=== PATIENT | female | born 1950 | race Caucasian/White ===

== ENCOUNTER 2017-01-15 09:07 | Emergency (ER) | payer MEDICARE, OTHER ==
[2017-01-15] MEDS ORDERED: HYDROmorphone 1 MG/ML Syringe IM ONE (09:40)
--- NOTE | 2017-01-15 10:46 | EDM.PDOC ---
ED HPI LOWER BACK PAIN/INJURY - General Chief Complaint: Back Pain or Injury Stated Complaint: PATIENT FELL ON HER BOTTOM FROM THE ICE. Time Seen by Provider: 01/15/17 09:10 Source of Information: Reports: Patient History Limitations: Reports: No limitations - History of Present Illness INITIAL COMMENTS - FREE TEXT/NARRATIVE: History of present illness: [] Patient has restless leg syndrome and woke up at 4:30 this morning and went for a walk and leg irritation. She slipped on the ice and landed on her buttock. She is complaining of low back pain and has no other injuries. Patient uses high doses of oxycodone and took 30 mg prior to her walk this morning. Review of systems: As per history of present illness and below otherwise all systems reviewed and negative. Past medical history: As per history of present illness and as reviewed below otherwise noncontributory. Surgical history: As per history of present illness and as reviewed below otherwise noncontributory. Social history: No reported history of drug or alcohol abuse. Family history: As per history of present illness and as reviewed below otherwise noncontributory. Physical exam: General: Well developed, well nourished in NAD HEENT: Atraumatic, normocephalic, pupils reactive, negative for conjunctival pallor or scleral icterus, mucous membranes moist, throat clear, neck supple, nontender, trachea midline. Lungs: Clear to auscultation, breath sounds equal bilaterally, chest nontender. Heart: S1S2, regular, negative for clicks, rubs, or JVD. Abdomen: Soft, nondistended, nontender. Negative for masses or hepatosplenomegaly. Negative for costovertebral tenderness. Pelvis: Stable nontender. Genitourinary: Deferred. Rectal: Deferred. Extremities: Atraumatic, negative for cords or calf pain. Neurovascular unremarkable. Neuro: Awake, alert, oriented. Cranial nerves II through XII unremarkable. Cerebellum unremarkable. Motor and sensory unremarkable throughout. Exam nonfocal. Diagnostics: [] Lumbar spine x-ray negative for fracture. INR is 1.7 Therapeutics: [] Patient was given half a milligram of Dilaudid IM while in the ER Impression: [] Fall low back pain Plan: [] Followup PMD. Patient is on high doses of narcotics and is negotiating for a new prescription for oxycodone. I am uncomfortable with this she has pain contract and followed by pain management physician. Definitive disposition and diagnosis as appropriate pending reevaluation and review of above. - Related Data Allergies/ADRs: Allergies Allergy/AdvReac Type Severity Reaction Status Date / Time No Known Allergies Allergy Verified 01/15/17 09:57 Home Meds: Home Meds Carvedilol 6.25 mg PO BID 11/28/16 [History] Cyclobenzaprine [Flexeril] 10 mg PO BEDTIME 11/28/16 [History] Furosemide [Furosemide] 40 mg PO ASDIRECTED PRN 11/28/16 [History] Gabapentin [Neurontin] 400 mg PO DAILY 11/28/16 [History] Iron,Carbonyl/Vit C/Vit B12/Fa [Iron 100 Plus Tablet] 65 mg PO DAILY 11/28/16 [ History] Omeprazole Magnesium [Prilosec Otc] 40 mg PO DAILY 11/28/16 [History] Polyethylene Glycol 3350 [MiraLAX] 17 gm PO DAILY 11/28/16 [History] Warfarin [Coumadin] 6 mg PO DAILY 11/28/16 [History] Zolpidem Tartrate [Ambien] 10 mg PO ASDIRECTED 11/28/16 [History] amLODIPine Bes/Olmesartan Med [Ayush 5-40 mg Tablet] 6 mg PO BIDPC PRN 11/28/16 [ History] oxyCODONE [oxyCODONE] 30 mg PO 5XDAY 11/28/16 [History] traMADol [Ultram] 50 mg PO Q8H #8 tablet 01/15/17 [Rx] Past Medical History HEENT History: Reports: Other (see below) Other HEENT History: no teeth or dentures Cardiovascular History: Reports: Hypertension Gastrointestinal History: Reports: Other (see below) Other Gastrointestinal History: acid reflux 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: Reports: Musculoskeletal History: Reports: Arthritis, Back pain, chronic, Other (see below) Other Musculoskeletal History: scoliosis, bulging discs, carpal tunnel, restless leg Neurological History: Reports: TIA Psychiatric History: Reports: Anxiety, Depression Oncologic (Cancer) History: Reports: Breast Other Oncologic History: right breast ca - Past Surgical History Cardiovascular Surgical History: Reports: Valve replacement, Other (see below) Other Cardiovascular Surgeries/Procedures: aortic valve replacement, mitral valve regurg, open heart surgery GI Surgical History: Reports: Bariatric procedure, Cholecystectomy, Other (see below) Other GI Surgeries/Procedures: gastric bypass Female Surgical History: Reports: Tubal ligation Musculoskeletal Surgical History: Reports: Carpal tunnel, Other (see below) Other Musculoskeletal Surgeries/Procedures:: right arm -carpal tunnel Oncologic Surgical History: Reports: Biopsy of breast, Lumpectomy Social & Family History - Family History Family Medical History: Noncontributory - Tobacco Use Smoking Status *Q: Current Every Day Smoker Years of Tobacco use: 40 Packs/Tins Daily: 1 - Caffeine Use Caffeine Use: Reports: Coffee - Recreational Drug Use Recreational Drug Use: No ED ROS GENERAL - Review of Systems Review Of Systems: See Below (CH a) ED EXAM,LOWER BACK PAIN/INJURY - Physical Exam Exam: See Below (See history of present illness) Course - Vital Signs Last Recorded V/S: Last Vital Signs Temp 36.4 C 01/15/17 09:24 Pulse 96 01/15/17 09:24 Resp 20 01/15/17 09:24 BP 173/84 H 01/15/17 09:24 Pulse Ox 97 01/15/17 09:24 - Orders/Labs/Meds Orders: Active Orders 24 hr Category Date Time Status Lumbar Spine 2 or 3V [CR] Stat Exams 01/15/17 09:40 Taken INR,PT,PROTHROMBIN TIME [COAG] Stat Lab 01/15/17 10:31 Received Meds: Medications Discontinued Medications Generic Name Dose Route Start Last Admin Trade Name Freq PRN Reason Stop Dose Admin Hydromorphone HCl 0.5 mg 01/15/17 09:40 01/15/17 09:47 Dilaudid IM 01/15/17 09:41 0.5 mg ONETIME ONE Administration Departure - Departure Time of Disposition: 11:00 Disposition: Home, Self-Care 01 Condition: good Clinical Impression: Low back pain Qualifiers: Chronicity: acute Back pain laterality: midline Sciatica presence: without sciatica Qualified Code(s): M54.5 - Low back pain Prescriptions: traMADol [Ultram] 50 mg PO Q8H #8 tablet Forms: ED Department Discharge Additional Instructions: The following information is given to patients seen in the emergency department who are being discharged to home. This information is to outline your options for follow-up care. We provide all patients seen in our emergency department with a follow-up referral. The need for follow-up, as well as the timing and circumstances, are variable depending upon the specifics of your emergency department visit. If you don't have a primary care physician on staff, we will provide you with a referral. We always advise you to contact your personal physician following an emergency department visit to inform them of the circumstance of the visit and for follow-up with them and/or the need for any referrals to a consulting specialist. The emergency department will also refer you to a specialist when appropriate. This referral assures that you have the opportunity for follow-up care with a specialist. All of these measure are taken in an effort to provide you with optimal care, which includes your follow-up. Under all circumstances we always encourage you to contact your private physician who remains a resource for coordinating your care. When calling for follow-up care, please make the office aware that this follow-up is from your recent emergency room visit. If for any reason you are refused follow-up, please contact the [facility] Emergency Department at and asked to speak to the emergency department charge nurse. Tramadol for pain followup with regular PMD [facility] Primary Care [address] [place] [address] - My Orders Last 24 Hours: My Active Orders 01/15/17 09:40 Lumbar Spine 2 or 3V [CR] Stat 01/15/17 10:31 INR,PT,PROTHROMBIN TIME [COAG] Stat - Assessment/Plan Last 24 Hours: My Active Orders 01/15/17 09:40 Lumbar Spine 2 or 3V [CR] Stat 01/15/17 10:31 INR,PT,PROTHROMBIN TIME [COAG] Stat
[2017-01-15 11:10] VITALS: BP 164/78
--- NOTE | 2017-01-17 20:28 | CR ---
EXAM DATE: 01/15/17 PATIENT'S AGE: 66 Patient: REESE SHELDON Facility: [place], [place] Site . Site : 1950 Study: XRay Spine Lumbar [id number]/[id number] 10:14:02 AM Ordering Physician: Mina Timmons Final Report: Indication: Pain. Fell on ice. Technique: Three upright views of the lumbar spine. Comparison: None. Findings: No obvious fracture. Advanced degenerative changes and moderate levoscoliosis. Sacroiliac joints within normal limits. Impression: 1. Negative for acute abnormality. 2. Advanced degenerative changes. 3. Moderate scoliosis. Dictated by Ector Ferrell MD @ Jan 15 2017 10:28AM (Electronic Signature) Report Signed by Proxy and Original Signed Document filed in the Medical Record. MTDD
== END 2017-01-15 11:18 | disposition home or self-care (01) ==
LOC: MW.ED 09:07
DX: M54.5 Low back pain (principal); I10 Essential (primary) hypertension; M19.90 Unspecified osteoarthritis, unspecified site; Z86.73 Personal history of transient ischemic attack (TIA), and cerebral infarction without residual deficits; F41.9 Anxiety disorder, unspecified; F32.9 Major depressive disorder, single episode, unspecified; F17.210 Nicotine dependence, cigarettes, uncomplicated; Z79.01 Long term (current) use of anticoagulants; Z79.899 Other long term (current) drug therapy; Z90.49 Acquired absence of other specified parts of digestive tract; Z98.84 Bariatric surgery status; Z98.51 Tubal ligation status; W00.0XXA Fall on same level due to ice and snow, initial encounter
CPT/HCPCS: 36415; 72100; 85610; 96372; 99283; J1170; 99284

== ENCOUNTER 2017-07-17 19:14 | Inpatient (IN) | payer MEDICARE, OTHER ==
[2017-07-17] MEDS ORDERED: Sodium Chloride 0.9% 10 ML Syringe FLUSH PRN (19:23)
[2017-07-17] MEDS ORDERED: Sodium Chloride 0.9% 2.5 ML Syringe FLUSH PRN (19:23)
--- NOTE | 2017-07-17 19:47 | EDM.PDOC ---
ED HPI GENERAL MEDICAL PROBLEM - General Chief Complaint: Respiratory Problem Stated Complaint: TROUBLE BREATHING Time Seen by Provider: 07/17/17 19:26 - History of Present Illness INITIAL COMMENTS - FREE TEXT/NARRATIVE: HISTORY AND PHYSICAL: History of present illness: Patient 66-year-old female history coronary artery disease who is status post coronary bypass surgery from 2000 presents since her shortness of breath over last several days she denies chest pain nausea vomiting palpitations fever chills or other concern. Review of systems: As per history of present illness and below otherwise all systems reviewed and negative. Past medical history: As per history of present illness and as reviewed below otherwise noncontributory. Surgical history: As per history of present illness and as reviewed below otherwise noncontributory. Social history: No reported history of drug or alcohol abuse. Family history: As per history of present illness and as reviewed below otherwise noncontributory. Physical exam: HEENT: Atraumatic, normocephalic, pupils reactive, negative for conjunctival pallor or scleral icterus, mucous membranes moist, throat clear, neck supple, nontender, trachea midline. Lungs: Slightly diminished and coarse bilaterally, breath sounds equal bilaterally, chest nontender. Heart: S1S2, irregularly irregular, negative for clicks, rubs, or JVD. Abdomen: Soft, nondistended, nontender. Negative for masses or hepatosplenomegaly. Negative for costovertebral tenderness. Pelvis: Stable nontender. Genitourinary: Deferred. Rectal: Deferred. Extremities: Atraumatic, negative for cords or calf pain. Neurovascular unremarkable. Neuro: Awake, alert, oriented. Cranial nerves II through XII unremarkable. Cerebellum unremarkable. Motor and sensory unremarkable throughout. Exam nonfocal. Diagnostics: CBC CMP PT/INR troponin BNP chest x-ray EKG Therapeutics: IV O2 monitor Impression: #1 dyspnea #2 history of coronary artery disease #3 history of coronary bypass surgery 2000 Definitive disposition and diagnosis as appropriate pending reevaluation and review of above. Lower Back Pain Score (Numeric/FACES): 6 Bilateral Shoulder Pain Score (Numeric/FACES): 6 - Related Data Allergies Allergy/AdvReac Type Severity Reaction Status Date / Time No Known Allergies Allergy Verified 07/17/17 19:20 Home Meds: Home Meds Carvedilol 6.25 mg PO BID 11/28/16 [History] Cyclobenzaprine [Flexeril] 10 mg PO BEDTIME 11/28/16 [History] Furosemide [Furosemide] 40 mg PO ASDIRECTED PRN 11/28/16 [History] Gabapentin [Neurontin] 400 mg PO DAILY 11/28/16 [History] Iron,Carbonyl/Vit C/Vit B12/Fa [Iron 100 Plus Tablet] 65 mg PO DAILY 11/28/16 [ History] Omeprazole Magnesium [Prilosec Otc] 40 mg PO DAILY 11/28/16 [History] Polyethylene Glycol 3350 [MiraLAX] 17 gm PO DAILY 11/28/16 [History] Warfarin [Coumadin] 6 mg PO DAILY 11/28/16 [History] Zolpidem Tartrate [Ambien] 10 mg PO ASDIRECTED 11/28/16 [History] amLODIPine Bes/Olmesartan Med [Ayush 5-40 mg Tablet] 6 mg PO BIDPC PRN 11/28/16 [ History] traMADol [Ultram] 50 mg PO Q8H #8 tablet 01/15/17 [Rx] Methadone 20 mg PO QAM 07/17/17 [History] DULoxetine HCl [Duloxetine HCl] 60 mg PO DAILY 07/18/17 [History] Methadone 10 mg PO BEDTIME 07/18/17 [History] Past Medical History HEENT History: Reports: Other (See Below) Other HEENT History: no teeth or dentures Cardiovascular History: Reports: Hypertension Gastrointestinal History: Reports: Other (See Below) Other Gastrointestinal History: acid reflux [employer] History: Reports: Musculoskeletal History: Reports: Arthritis, Back Pain, Chronic, Other (See Below) Other Musculoskeletal History: scoliosis, bulging discs, carpal tunnel, restless leg Neurological History: Reports: TIA Psychiatric History: Reports: Anxiety, Depression Oncologic (Cancer) History: Reports: Breast Other Oncologic History: right breast ca - Past Surgical History Cardiovascular Surgical History: Reports: Valve Replacement, Other (See Below) GI Surgical History: Reports: Bariatric Procedure, Cholecystectomy, Other (See Below) Female Surgical History: Reports: Tubal Ligation Musculoskeletal Surgical History: Reports: Carpal Tunnel, Other (See Below) Oncologic Surgical History: Reports: Biopsy of Breast, Lumpectomy Social & Family History - Family History Family Medical History: Noncontributory - Tobacco Use Smoking Status *Q: Current Every Day Smoker Years of Tobacco use: 50 Packs/Tins Daily: 0.5 - Caffeine Use Caffeine Use: Reports: None - Recreational Drug Use Recreational Drug Use: No ED ROS GENERAL - Review of Systems Review Of Systems: ROS reveals no pertinent complaints other than HPI. ED EXAM, GENERAL - Physical Exam Exam: See Below (See dictation) Course - Vital Signs Last Recorded V/S: Last Vital Signs Temp 36.1 C 07/19/17 04:00 Pulse 83 07/19/17 04:00 Resp 16 07/19/17 04:00 BP 103/52 L 07/19/17 04:00 Pulse Ox 97 07/19/17 04:00 - Orders/Labs/Meds Orders: Medication Orders Carvedilol (Coreg) 6.25 mg PO BID [facility] Last Admin: 07/18/17 20:56 Dose: 6.25 mg Admin: 07/18/17 08:15 Dose: 6.25 mg Ciprofloxacin (Ciprofloxacin Hcl) 500 mg PO BID [facility] Last Admin: 07/18/17 20:54 Dose: 500 mg Admin: 07/18/17 08:15 Dose: 500 mg Cyclobenzaprine HCl (Flexeril) 10 mg PO BEDTIME [facility] Last Admin: 07/18/17 20:54 Dose: 10 mg Diltiazem HCl (Diltiazem) 20 mg IVPUSH Q6H PRN PRN Reason: Tachycardia Last Admin: 07/18/17 10:33 Dose: 20 mg Admin: 07/18/17 02:54 Dose: 20 mg Duloxetine HCl (Cymbalta) 60 mg PO DAILY [facility] Last Admin: 07/18/17 15:01 Dose: 60 mg Ferrous Sulfate (Ferrous Sulfate) 325 mg PO DAILY@1200 [facility] Last Admin: 07/18/17 11:03 Dose: 325 mg Gabapentin (Neurontin) 400 mg PO DAILY [facility] Last Admin: 07/18/17 08:12 Dose: 400 mg Methadone HCl (Methadone) 10 mg PO BEDTIME [facility] Last Admin: 07/18/17 20:53 Dose: 10 mg Methadone HCl (Methadone) 20 mg PO DAILY [facility] Omeprazole (Omeprazole) 40 mg PO ACBREAKFAST [facility] Last Admin: 07/18/17 06:37 Dose: 40 mg Amlodipine Bes/Olmesartan Med [Ayush 5-40 Mg Tablet] 6 Mg 1 each PO BIDPC PRN PRN Reason: Hypertension Polyethylene Glycol (Miralax) 17 gm PO DAILY [facility] Last Admin: 07/18/17 08:12 Dose: 17 gm Sodium Chloride (Saline Flush) 10 ml FLUSH ASDIRECTED PRN PRN Reason: Keep Vein Open Last Admin: 07/17/17 19:42 Dose: 10 ml Sodium Chloride (Saline Flush) 2.5 ml FLUSH ASDIRECTED PRN PRN Reason: Keep Vein Open Last Admin: 07/17/17 19:40 Dose: 2.5 ml Temazepam (Restoril) 15 mg PO BEDTIME PRN PRN Reason: Insomnia Last Admin: 07/18/17 21:59 Dose: 15 mg Admin: 07/17/17 23:05 Dose: 15 mg Tramadol HCl (Ultram) 50 mg PO Q8H [facility] Last Admin: 07/18/17 21:59 Dose: 50 mg Admin: 07/18/17 14:49 Dose: 50 mg Admin: 07/18/17 06:36 Dose: 50 mg Admin: 07/17/17 22:48 Dose: Not Given Zaleplon (Sonata) 10 mg PO ASDIRECTED [facility] Labs: Laboratory Tests 07/17/17 07/17/17 07/17/17 Range/Units 19:35 19:35 19:35 WBC 10.80 (4.0-11.0) K/uL RBC 4.57 (4.30-5.90) M/uL Hgb 13.2 (12.0-16.0) g/dL Hct 41.0 (36.0-46.0) % MCV 89.7 (80.0-98.0) fL MCH 28.9 (27.0-32.0) pg MCHC 32.2 (31.0-37.0) g/dL RDW Std Deviation 50.2 (28.0-62.0) fl RDW Coeff of Shaun 15 (11.0-15.0) % Plt Count 207 (150-400) K/uL MPV 9.50 (7.40-12.00) fL Neut % (Auto) 73.3 (48.0-80.0) % Lymph % (Auto) 17.1 (16.0-40.0) % Stearns % (Auto) 7.3 (0.0-15.0) % Eos % (Auto) 2.0 (0.0-7.0) % Baso % (Auto) 0.3 (0.0-1.5) % Neut # (Auto) 7.9 H (1.4-5.7) K/uL Lymph # (Auto) 1.9 (0.6-2.4) K/uL Stearns # (Auto) 0.8 (0.0-0.8) K/uL Eos # (Auto) 0.2 (0.0-0.7) K/uL Baso # (Auto) 0.0 (0.0-0.1) K/uL Nucleated RBC % 0.0 /100WBC Nucleated RBCs # 0 K/uL INR 3.18 H (0.86-1.11) Lactate 1.8 (0.20-2.00) mmol/L Sodium (136-146) mmol/L Potassium (3.5-5.1) mmol/L Chloride (98-110) mmol/L Carbon Dioxide (21-31) mmol/L BUN (6.0-23.0) mg/dL Creatinine (0.6-1.5) mg/dL Est Cr Clr Drug Dosing mL/min Estimated GFR (MDRD) ml/min Glucose (60-110) mg/dL Calcium (8.8-10.8) mg/dL Total Bilirubin (0.1-1.5) mg/dL AST (5-40) IU/L ALT (8-54) IU/L Alkaline Phosphatase (40-150) Troponin I (0.0-0.29) NG/ML B-Natriuretic Peptide (<100) PG/ML Total Protein (6.0-8.0) g/dL Albumin (3.4-4.8) g/dL Globulin (2.0-3.5) g/dL Albumin/Globulin Ratio (1.3-2.8) Urine Color Urine Appearance Urine pH (5.0-8.0) Ur Specific [place] (1.001-1.035) Urine Protein (NEGATIVE) mg/dL Urine Glucose (UA) (NEGATIVE) mg/dL Urine Ketones (NEGATIVE) mg/dL Urine Occult Blood (NEGATIVE) Urine Nitrite (NEGATIVE) Urine Bilirubin (NEGATIVE) Urine Urobilinogen (<2.0) EU/dL Ur Leukocyte Esterase (NEGATIVE) Urine RBC (0-2/HPF) Urine WBC (0-5/HPF) Ur Epithelial Cells (NONE-FEW) Calcium Oxalate Crystal (NEGATIVE) Urine Bacteria (NEGATIVE) Urine Opiates Screen (NEGATIVE) Ur Oxycodone Screen (NEGATIVE) Urine Methadone Screen (NEGATIVE) Ur Barbiturates Screen (NEGATIVE) Ur Phencyclidine Scrn (NEGATIVE) Ur Amphetamine Screen (NEGATIVE) U Methamphetamines Scrn (NEGATIVE) U Benzodiazepines Scrn (NEGATIVE) U Cocaine Metab Screen (NEGATIVE) U Marijuana (THC) Screen (NEGATIVE) 07/17/17 07/17/17 07/17/17 Range/Units 19:35 19:35 19:35 WBC (4.0-11.0) K/uL RBC (4.30-5.90) M/uL Hgb (12.0-16.0) g/dL Hct (36.0-46.0) % MCV (80.0-98.0) fL MCH (27.0-32.0) pg MCHC (31.0-37.0) g/dL RDW Std Deviation (28.0-62.0) fl RDW Coeff of Shaun (11.0-15.0) % Plt Count (150-400) K/uL MPV (7.40-12.00) fL Neut % (Auto) (48.0-80.0) % Lymph % (Auto) (16.0-40.0) % Stearns % (Auto) (0.0-15.0) % Eos % (Auto) (0.0-7.0) % Baso % (Auto) (0.0-1.5) % Neut # (Auto) (1.4-5.7) K/uL Lymph # (Auto) (0.6-2.4) K/uL Stearns # (Auto) (0.0-0.8) K/uL Eos # (Auto) (0.0-0.7) K/uL Baso # (Auto) (0.0-0.1) K/uL Nucleated RBC % /100WBC Nucleated RBCs # K/uL INR (0.86-1.11) Lactate (0.20-2.00) mmol/L Sodium 138 (136-146) mmol/L Potassium 4.3 (3.5-5.1) mmol/L Chloride 104 (98-110) mmol/L Carbon Dioxide 26 (21-31) mmol/L BUN 12 (6.0-23.0) mg/dL Creatinine 0.7 (0.6-1.5) mg/dL Est Cr Clr Drug Dosing 56.78 mL/min Estimated GFR (MDRD) > 60.0 ml/min Glucose 119 H (60-110) mg/dL Calcium 8.9 (8.8-10.8) mg/dL Total Bilirubin 0.5 (0.1-1.5) mg/dL AST 20 (5-40) IU/L ALT 14 (8-54) IU/L Alkaline Phosphatase 93 (40-150) Troponin I < 0.10 (0.0-0.29) NG/ML B-Natriuretic Peptide 650 H (<100) PG/ML Total Protein 6.8 (6.0-8.0) g/dL Albumin 3.8 (3.4-4.8) g/dL Globulin 3.0 (2.0-3.5) g/dL Albumin/Globulin Ratio 1.3 (1.3-2.8) Urine Color Urine Appearance Urine pH (5.0-8.0) Ur Specific [place] (1.001-1.035) Urine Protein (NEGATIVE) mg/dL Urine Glucose (UA) (NEGATIVE) mg/dL Urine Ketones (NEGATIVE) mg/dL Urine Occult Blood (NEGATIVE) Urine Nitrite (NEGATIVE) Urine Bilirubin (NEGATIVE) Urine Urobilinogen (<2.0) EU/dL Ur Leukocyte Esterase (NEGATIVE) Urine RBC (0-2/HPF) Urine WBC (0-5/HPF) Ur Epithelial Cells (NONE-FEW) Calcium Oxalate Crystal (NEGATIVE) Urine Bacteria (NEGATIVE) Urine Opiates Screen (NEGATIVE) Ur Oxycodone Screen (NEGATIVE) Urine Methadone Screen (NEGATIVE) Ur Barbiturates Screen (NEGATIVE) Ur Phencyclidine Scrn (NEGATIVE) Ur Amphetamine Screen (NEGATIVE) U Methamphetamines Scrn (NEGATIVE) U Benzodiazepines Scrn (NEGATIVE) U Cocaine Metab Screen (NEGATIVE) U Marijuana (THC) Screen (NEGATIVE) 07/17/17 07/17/17 Range/Units 19:35 19:35 WBC (4.0-11.0) K/uL RBC (4.30-5.90) M/uL Hgb (12.0-16.0) g/dL Hct (36.0-46.0) % MCV (80.0-98.0) fL MCH (27.0-32.0) pg MCHC (31.0-37.0) g/dL RDW Std Deviation (28.0-62.0) fl RDW Coeff of Shaun (11.0-15.0) % Plt Count (150-400) K/uL MPV (7.40-12.00) fL Neut % (Auto) (48.0-80.0) % Lymph % (Auto) (16.0-40.0) % Stearns % (Auto) (0.0-15.0) % Eos % (Auto) (0.0-7.0) % Baso % (Auto) (0.0-1.5) % Neut # (Auto) (1.4-5.7) K/uL Lymph # (Auto) (0.6-2.4) K/uL Stearns # (Auto) (0.0-0.8) K/uL Eos # (Auto) (0.0-0.7) K/uL Baso # (Auto) (0.0-0.1) K/uL Nucleated RBC % /100WBC Nucleated RBCs # K/uL INR (0.86-1.11) Lactate (0.20-2.00) mmol/L Sodium (136-146) mmol/L Potassium (3.5-5.1) mmol/L Chloride (98-110) mmol/L Carbon Dioxide (21-31) mmol/L BUN (6.0-23.0) mg/dL Creatinine (0.6-1.5) mg/dL Est Cr Clr Drug Dosing mL/min Estimated GFR (MDRD) ml/min Glucose (60-110) mg/dL Calcium (8.8-10.8) mg/dL Total Bilirubin (0.1-1.5) mg/dL AST (5-40) IU/L ALT (8-54) IU/L Alkaline Phosphatase (40-150) Troponin I (0.0-0.29) NG/ML B-Natriuretic Peptide (<100) PG/ML Total Protein (6.0-8.0) g/dL Albumin (3.4-4.8) g/dL Globulin (2.0-3.5) g/dL Albumin/Globulin Ratio (1.3-2.8) Urine Color YELLOW Urine Appearance CLOUDY Urine pH 6.0 (5.0-8.0) Ur Specific [place] 1.025 (1.001-1.035) Urine Protein 30 (NEGATIVE) mg/dL Urine Glucose (UA) NEGATIVE (NEGATIVE) mg/dL Urine Ketones NEGATIVE (NEGATIVE) mg/dL Urine Occult Blood LARGE H (NEGATIVE) Urine Nitrite NEGATIVE (NEGATIVE) Urine Bilirubin NEGATIVE (NEGATIVE) Urine Urobilinogen 1.0 (<2.0) EU/dL Ur Leukocyte Esterase SMALL (NEGATIVE) Urine RBC 10-15 (0-2/HPF) Urine WBC 6-10 (0-5/HPF) Ur Epithelial Cells FEW (NONE-FEW) Calcium Oxalate Crystal MODERATE (NEGATIVE) Urine Bacteria 2+ H (NEGATIVE) Urine Opiates Screen NEGATIVE (NEGATIVE) Ur Oxycodone Screen NEGATIVE (NEGATIVE) Urine Methadone Screen POSITIVE (NEGATIVE) Ur Barbiturates Screen NEGATIVE (NEGATIVE) Ur Phencyclidine Scrn NEGATIVE (NEGATIVE) Ur Amphetamine Screen NEGATIVE (NEGATIVE) U Methamphetamines Scrn NEGATIVE (NEGATIVE) U Benzodiazepines Scrn NEGATIVE (NEGATIVE) U Cocaine Metab Screen NEGATIVE (NEGATIVE) U Marijuana (THC) Screen NEGATIVE (NEGATIVE) Meds: Medications Generic Name Dose Route Start Last Admin Trade Name Freq PRN Reason Stop Dose Admin Carvedilol 6.25 mg 07/18/17 09:00 07/18/17 20:56 Coreg PO 6.25 mg BID [facility] Administration Ciprofloxacin 500 mg 07/18/17 09:00 07/18/17 20:54 Ciprofloxacin Hcl PO 500 mg BID [facility] Administration Cyclobenzaprine HCl 10 mg 07/18/17 21:00 07/18/17 20:54 Flexeril PO 10 mg BEDTIME [facility] Administration Diltiazem HCl 20 mg 07/18/17 02:06 07/18/17 10:33 Diltiazem IVPUSH 20 mg Q6H PRN Administration Tachycardia Duloxetine HCl 60 mg 07/18/17 15:00 07/18/17 15:01 Cymbalta PO 60 mg DAILY [facility] Administration Ferrous Sulfate 325 mg 07/18/17 12:00 07/18/17 11:03 Ferrous Sulfate PO 325 mg DAILY@1200 [facility] Administration Gabapentin 400 mg 07/18/17 09:00 07/18/17 08:12 Neurontin PO 400 mg DAILY [facility] Administration Methadone HCl 10 mg 07/18/17 21:00 07/18/17 20:53 Methadone PO 10 mg BEDTIME [facility] Administration Methadone HCl 20 mg 07/19/17 09:00 Methadone PO DAILY [facility] Omeprazole 40 mg 07/18/17 07:30 07/18/17 06:37 Omeprazole PO 40 mg ACBREAKFAST [facility] Administration Amlodipine Bes/ 1 each 07/17/17 22:37 Olmesartan Med [Ayush PO 5-40 Mg Tablet] 6 BIDPC PRN Mg Hypertension Polyethylene Glycol 17 gm 07/18/17 09:00 07/18/17 08:12 Miralax PO 17 gm DAILY [facility] Administration Sodium Chloride 10 ml 07/17/17 19:23 07/17/17 19:42 Saline Flush FLUSH 10 ml ASDIRECTED PRN Administration Keep Vein Open Sodium Chloride 2.5 ml 07/17/17 19:23 07/17/17 19:40 Saline Flush FLUSH 2.5 ml ASDIRECTED PRN Administration Keep Vein Open Temazepam 15 mg 07/17/17 22:46 07/18/17 21:59 Restoril PO 15 mg BEDTIME PRN Administration Insomnia Tramadol HCl 50 mg 07/17/17 22:45 07/18/17 21:59 Ultram PO 50 mg Q8H [facility] Administration Zaleplon 10 mg 07/17/17 22:48 Sonata PO ASDIRECTED [facility] Discontinued Medications Generic Name Dose Route Start Last Admin Trade Name Freq PRN Reason Stop Dose Admin Diltiazem HCl 20 mg 07/17/17 19:51 07/17/17 19:57 Diltiazem IVPUSH 07/17/17 19:52 20 mg ONETIME ONE Administration Ferrous Sulfate 325 mg 07/18/17 10:08 Ferrous Sulfate PO DAILY [facility] Furosemide 20 mg 07/17/17 20:49 07/17/17 21:00 Lasix IVPUSH 07/17/17 20:50 20 mg NOW ONE Administration Furosemide 40 mg 07/17/17 22:37 Lasix PO ASDIRECTED PRN Edema Furosemide 40 mg 07/18/17 15:47 07/18/17 16:30 Lasix IVPUSH 07/18/17 15:48 40 mg NOW ONE Administration Methadone HCl 10 mg 07/17/17 22:45 07/18/17 08:13 Methadone PO 10 mg BID [facility] Administration Methadone HCl 10 mg 07/18/17 10:15 07/18/17 10:21 Methadone PO 07/18/17 10:16 10 mg ONETIME ONE Administration Non-Formulary Medication 65 mg 07/18/17 09:00 07/18/17 14:48 Iron,Carbonyl/Vit C/Vit B12/Fa [Iron 100 Plus Tablet] PO Not Given DAILY [facility] Departure - Departure Time of Disposition: 06:15 Disposition: Admitted As Inpatient 66 Condition: Good Clinical Impression: Dyspnea Qualifiers: Dyspnea type: dyspnea on exertion Qualified Code(s): R06.09 - Other forms of dyspnea - Discharge Information
[2017-07-17] MEDS ORDERED: Diltiazem 25 MG/5 ML SDV IVPUSH ONE (19:51)
[2017-07-17 20:12] LABS: CHLORIDE,CL 104 mmol/L (98-110); SODIUM,NA 138 mmol/L (136-146)
[2017-07-17] MEDS ORDERED: Furosemide 40 MG/4 ML VIAL IVPUSH ONE (20:49)
[2017-07-17] MEDS ORDERED: [UNRECOGNIZED DRUG - OTHER] PO PRN (22:37)
[2017-07-17] MEDS ORDERED: Furosemide 40 MG Tab PO PRN (22:37)
[2017-07-17] MEDS ORDERED: OLMESARTAN PO PRN (22:37)
[2017-07-17] MEDS: traMADol 50 MG Tab PO SCH (22:48)
[2017-07-17] MEDS: Temazepam 15 MG Cap PO PRN (23:05)
[2017-07-17] MEDS: Methadone 10 MG Tab PO SCH (23:05)
[2017-07-18] MEDS: Diltiazem 25 MG/5 ML SDV IVPUSH PRN ×2 (02:54→10:33)
[2017-07-18 06:32] LABS: CHLORIDE,CL 102 mmol/L (98-110); SODIUM,NA 141 mmol/L (136-146)
[2017-07-18] MEDS: traMADol 50 MG Tab PO SCH ×3 (06:36→21:59)
[2017-07-18] MEDS: Omeprazole 20 MG Cap.CR PO SCH (06:37)
[2017-07-18] MEDS: Gabapentin 100 MG Cap PO SCH (08:12)
[2017-07-18] MEDS: Polyethylene Glycol 3350 Powder 17 GM Packet PO SCH (08:12)
[2017-07-18] MEDS: Methadone 10 MG Tab PO SCH ×2 (08:13→20:53)
[2017-07-18] MEDS: Carvedilol 6.25 MG Tab PO SCH ×2 (08:15→20:56)
[2017-07-18] MEDS: Ciprofloxacin 500 MG Tab PO SCH ×2 (08:15→20:54)
[2017-07-18] MEDS ORDERED: Ferrous Sulfate 325 MG Tab PO SCH (10:08)
[2017-07-18] MEDS ORDERED: Methadone 10 MG Tab PO ONE (10:15)
--- NOTE | 2017-07-18 10:18 | PCM.HP ---
H&P History of Present Illness - General Date of Service: 07/18/17 Admit Problem/Dx: Admission Diagnosis/Problem Admission Diagnosis/Problem Atrial fibrillation with rapid ventricular response Source of Information: Patient History Limitations: Reports: No Limitations - History of Present Illness Initial Comments - Free Text/Narative: The patient is a 66-year-old lady who is presented to the emergency department yesterday evening with a complaint of shortness of breath. The patient says that she has been short of breath for the past several days and is gotten worse where she has difficulty in walking up shelter flight of stairs. The patient has a history of coronary artery bypass in 2010 and she also has a history of aortic valve replacement with mechanical valve. The patient is currently anticoagulated and in the emergency department she was known to be in atrial fibrillation with rapid ventricular response rate. Patient says that she is not having any pain. She's denied any dizziness or lightheadedness. The patient has been compliant with her medications. The patient also has been taking chronic pain medications in particular methadone for her back pain and she used to use oxycodone in large doses but is been tapering down and is completely off oxycodone but has been on methadone 10 mg by mouth twice a day. Patient does have a history of breast cancer and she is not to have vital signs or blood draws on her right side. The patient has been in her usual state of health up at the present time. She was not aware that she was having difficulty with atrial fibrillation. Patient also had been given Cardizem in the emergency department and her rate was controlled nicely. Patient also does take carvedilol. Onset of Symptoms: Reports: Gradual Duration of Symptoms: Reports: Day(s): Location: Reports: Chest Severity: Moderate Improves with: Reports: Rest Worsens with: Reports: Breathing, Movement Associated Symptoms: Reports: Diaphoresis Lower Back Pain Score (Numeric/FACES): 6 Bilateral Shoulder Pain Score (Numeric/FACES): 6 - Related Data Allergies/Adverse Reactions: Allergies Allergy/AdvReac Type Severity Reaction Status Date / Time No Known Allergies Allergy Verified 07/17/17 19:20 Home Medications: Home Meds Carvedilol 6.25 mg PO BID 11/28/16 [History] Cyclobenzaprine [Flexeril] 10 mg PO BEDTIME 11/28/16 [History] Furosemide [Furosemide] 40 mg PO ASDIRECTED PRN 11/28/16 [History] Gabapentin [Neurontin] 400 mg PO DAILY 11/28/16 [History] Iron,Carbonyl/Vit C/Vit B12/Fa [Iron 100 Plus Tablet] 65 mg PO DAILY 11/28/16 [ History] Omeprazole Magnesium [Prilosec Otc] 40 mg PO DAILY 11/28/16 [History] Polyethylene Glycol 3350 [MiraLAX] 17 gm PO DAILY 11/28/16 [History] Warfarin [Coumadin] 6 mg PO DAILY 11/28/16 [History] Zolpidem Tartrate [Ambien] 10 mg PO ASDIRECTED 11/28/16 [History] amLODIPine Bes/Olmesartan Med [Ayush 5-40 mg Tablet] 6 mg PO BIDPC PRN 11/28/16 [ History] traMADol [Ultram] 50 mg PO Q8H #8 tablet 01/15/17 [Rx] Methadone 20 mg PO QAM 07/17/17 [History] DULoxetine HCl [Duloxetine HCl] 60 mg PO DAILY 07/18/17 [History] Methadone 10 mg PO BEDTIME 07/18/17 [History] Past Medical History HEENT History: Reports: Other (See Below) Other HEENT History: no teeth or dentures Cardiovascular History: Reports: Bypass, Heart Failure, Heart Valve Replacement , Hypertension Respiratory History: Reports: COPD Gastrointestinal History: Reports: Other (See Below) Other Gastrointestinal History: acid reflux Genitourinary History: Reports: None [employer] History: Reports: Musculoskeletal History: Reports: Arthritis, Back Pain, Chronic, Other (See Below) Other Musculoskeletal History: scoliosis, bulging discs, carpal tunnel, restless leg Neurological History: Reports: TIA Psychiatric History: Reports: Anxiety, Depression Endocrine/Metabolic History: Reports: None Hematologic History: Reports: None Immunologic History: Reports: None Oncologic (Cancer) History: Reports: Breast Other Oncologic History: right breast ca Dermatologic History: Reports: None - Past Surgical History Head Surgeries/Procedures: Reports: None Cardiovascular Surgical History: Reports: Valve Replacement, Other (See Below) Respiratory Surgical History: Reports: None GI Surgical History: Reports: Bariatric Procedure, Cholecystectomy, Other (See Below) Other GI Surgeries/Procedures: gastric bypass Female Surgical History: Reports: Tubal Ligation, Other (See Below) Other Female Surgeries/Procedures: right breast lumpectomy Neurological Surgical History: Reports: None Musculoskeletal Surgical History: Reports: Carpal Tunnel, Other (See Below) Oncologic Surgical History: Reports: Biopsy of Breast, Lumpectomy Social & Family History - Family History Family Medical History: Noncontributory - Tobacco Use Smoking Status *Q: Current Every Day Smoker Years of Tobacco use: 50 Packs/Tins Daily: 0.5 Second Hand Smoke Exposure: Yes - Caffeine Use Caffeine Use: Reports: Coffee Caffeine Use Comment: 3-4 cups a day - Recreational Drug Use Recreational Drug Use: No H&P Review of Systems - Review of Systems: Review Of Systems: See Below General: Reports: Weakness, Fatigue HEENT: Reports: No Symptoms Pulmonary: Reports: Shortness of Breath Cardiovascular: Reports: No Symptoms Gastrointestinal: Reports: No Symptoms Genitourinary: Reports: No Symptoms Musculoskeletal: Reports: No Symptoms Skin: Reports: No Symptoms Psychiatric: Reports: No Symptoms Neurological: Reports: No Symptoms Hematologic/Lymphatic: Reports: No Symptoms Immunologic: Reports: No Symptoms Exam - Exam Exam: See Below - Vital Signs Vital Signs: Last Vital Signs Temp 35.9 C 07/18/17 08:00 Pulse 110 H 07/18/17 08:15 Resp 20 07/18/17 08:00 BP 119/68 07/18/17 08:15 Pulse Ox 95 07/18/17 08:00 Weight: 68.4 kg - Exam Quality Assessment: Supplemental Oxygen General: Alert, Oriented, Mild Distress HEENT: Conjunctiva Clear, Mucosa Moist & [place], Nares Patent Neck: Supple, Trachea Midline Lungs: Clear to Auscultation, Normal Respiratory Effort Cardiovascular: Irregular Rhythm, Tachycardia GI/Abdominal Exam: Normal Bowel Sounds, Soft, No Distention Back Exam: Decreased Range of Motion Extremities: No Pedal Edema Skin: Warm, Dry, Intact Neuro Extensive - Mental Status: Alert, Oriented x3 Psychiatric: Alert, Normal Affect - Patient Data Lab Results Last 24 hrs: Laboratory Results - last 24 hr 07/18/17 07/18/17 07/18/17 Range/Units 05:13 05:13 05:13 WBC 8.23 (4.0-11.0) K/uL RBC 4.54 (4.30-5.90) M/uL Hgb 13.0 (12.0-16.0) g/dL Hct 40.4 (36.0-46.0) % MCV 89.0 (80.0-98.0) fL MCH 28.6 (27.0-32.0) pg MCHC 32.2 (31.0-37.0) g/dL RDW Std Deviation 49.1 (28.0-62.0) fl RDW Coeff of Shaun 15 (11.0-15.0) % Plt Count 194 (150-400) K/uL MPV 10.00 (7.40-12.00) fL Neut % (Auto) 60.0 (48.0-80.0) % Lymph % (Auto) 24.9 (16.0-40.0) % Gaines % (Auto) 12.9 (0.0-15.0) % Eos % (Auto) 1.8 (0.0-7.0) % Baso % (Auto) 0.4 (0.0-1.5) % Neut # (Auto) 4.9 (1.4-5.7) K/uL Lymph # (Auto) 2.1 (0.6-2.4) K/uL Gaines # (Auto) 1.1 H (0.0-0.8) K/uL Eos # (Auto) 0.2 (0.0-0.7) K/uL Baso # (Auto) 0.0 (0.0-0.1) K/uL Nucleated RBC % 0.0 /100WBC Nucleated RBCs # 0 K/uL INR 3.78 H (0.86-1.11) Sodium 141 (136-146) mmol/L Potassium 4.1 (3.5-5.1) mmol/L Chloride 102 (98-110) mmol/L Carbon Dioxide 29 (21-31) mmol/L BUN 12 (6.0-23.0) mg/dL Creatinine 0.7 (0.6-1.5) mg/dL Est Cr Clr Drug Dosing 56.78 mL/min Estimated GFR (MDRD) > 60.0 ml/min Glucose 90 (60-110) mg/dL Calcium 9.1 (8.8-10.8) mg/dL Total Bilirubin 0.7 (0.1-1.5) mg/dL AST 18 (5-40) IU/L ALT 13 (8-54) IU/L Alkaline Phosphatase 94 (40-150) Total Protein 6.4 (6.0-8.0) g/dL Albumin 3.8 (3.4-4.8) g/dL Globulin 2.6 (2.0-3.5) g/dL Albumin/Globulin Ratio 1.5 (1.3-2.8) Result Diagrams: 07/18/17 05:13 07/18/17 05:13 EKG INTERPRETATION Rhythm: A-Fib [place]: Normal P-Wave: Absent QRS: Normal ST-T: Normal QT: Normal *Q Meaningful Use (ADM) - VTE *Q VTE Criteria *Q: - Stroke *Q Stroke Criteria *Q: - AMI *Q AMI Criteria *Q: - Problem List (1) New onset a-fib SNOMED Code(s): 86723507 ICD Code: I48.91 - UNSPECIFIED ATRIAL FIBRILLATION Status: Chronic Priority: High Current Visit: Yes Problem Details: Cardiology consulted (2) Mechanical heart valve present SNOMED Code(s): 51805469581863, 33756693, 136178440, 490342208, [id number] ICD Code: Z95.2 - PRESENCE OF PROSTHETIC HEART VALVE Status: Chronic Priority: High Current Visit: Yes (3) Anticoagulated on Coumadin SNOMED Code(s): 19767789 ICD Code: Z51.81 - ENCOUNTER FOR THERAPEUTIC DRUG LEVEL MONITORING; Z79.01 - FPC (CURRENT) USE OF ANTICOAGULANTS Status: Chronic Priority: Medium Current Visit: Yes (4) Dyspnea SNOMED Code(s): 233616598 ICD Code: R06.00 - DYSPNEA, UNSPECIFIED Status: Acute Priority: High Current Visit: Yes Qualifiers: Dyspnea type: dyspnea on exertion Qualified Code(s): R06.09 - Other forms of dyspnea Problem List Initiated/Reviewed/Updated: Yes Orders Last 24hrs: Active Orders 24 hr Category Date Time Status Communication Order [RC] DAILY Care 07/17/17 22:09 Active Telemetry Monitoring [Cardiac Monitoring] [RC] . Care 07/17/17 21:10 Active DIRECTED Heart Healthy Diet [DIET] Diet 07/18/17 Breakfast Active Carvedilol [Coreg] Med 07/18/17 09:00 Active 6.25 mg PO BID Ciprofloxacin [Ciprofloxacin HCl] Med 07/18/17 09:00 Active 500 mg PO BID Cyclobenzaprine [Flexeril] Med 07/18/17 21:00 Active 10 mg PO BEDTIME Diltiazem Med 07/18/17 02:06 Active 20 mg IVPUSH Q6H PRN Ferrous Sulfate Med 07/18/17 12:00 Active 325 mg PO DAILY@1200 Gabapentin [Neurontin] Med 07/18/17 09:00 Active 400 mg PO DAILY Methadone Med 07/18/17 21:00 Active 10 mg PO BEDTIME Methadone Med 07/19/17 09:00 Active 20 mg PO DAILY Omeprazole Med 07/18/17 07:30 Active 40 mg PO ACBREAKFAST Patient's Own Medication [Ptom] Med 07/17/17 22:37 Active 1 each PO BIDPC PRN Polyethylene Glycol 3350 [MiraLAX] Med 07/18/17 09:00 Active 17 gm PO DAILY Temazepam [Restoril] Med 07/17/17 22:46 Active 15 mg PO BEDTIME PRN Zaleplon [Sonata] Med 07/17/17 22:48 Active 10 mg PO ASDIRECTED traMADol [Ultram] Med 07/17/17 22:45 Active 50 mg PO Q8H Medication Orders Carvedilol (Coreg) 6.25 mg PO BID [facility] Last Admin: 07/18/17 08:15 Dose: 6.25 mg Ciprofloxacin (Ciprofloxacin Hcl) 500 mg PO BID [facility] Last Admin: 07/18/17 08:15 Dose: 500 mg Cyclobenzaprine HCl (Flexeril) 10 mg PO BEDTIME [facility] Diltiazem HCl (Diltiazem) 20 mg IVPUSH Q6H PRN PRN Reason: Tachycardia Last Admin: 07/18/17 02:54 Dose: 20 mg Ferrous Sulfate (Ferrous Sulfate) 325 mg PO DAILY@1200 [facility] Gabapentin (Neurontin) 400 mg PO DAILY [facility] Last Admin: 07/18/17 08:12 Dose: 400 mg Methadone HCl (Methadone) 10 mg PO BEDTIME [facility] Methadone HCl (Methadone) 20 mg PO DAILY [facility] Omeprazole (Omeprazole) 40 mg PO ACBREAKFAST [facility] Last Admin: 07/18/17 06:37 Dose: 40 mg Amlodipine Bes/Olmesartan Med [Ayush 5-40 Mg Tablet] 6 Mg 1 each PO BIDPC PRN PRN Reason: Hypertension Polyethylene Glycol (Miralax) 17 gm PO DAILY [facility] Last Admin: 07/18/17 08:12 Dose: 17 gm Sodium Chloride (Saline Flush) 10 ml FLUSH ASDIRECTED PRN PRN Reason: Keep Vein Open Last Admin: 07/17/17 19:42 Dose: 10 ml Sodium Chloride (Saline Flush) 2.5 ml FLUSH ASDIRECTED PRN PRN Reason: Keep Vein Open Last Admin: 07/17/17 19:40 Dose: 2.5 ml Temazepam (Restoril) 15 mg PO BEDTIME PRN PRN Reason: Insomnia Last Admin: 07/17/17 23:05 Dose: 15 mg Tramadol HCl (Ultram) 50 mg PO Q8H [facility] Last Admin: 07/18/17 06:36 Dose: 50 mg Admin: 07/17/17 22:48 Dose: Not Given Zaleplon (Sonata) 10 mg PO ASDIRECTED [facility] Assessment/Plan Comment:: The patient's pulse rate on presentation was 125 bpm. Patient was rate controlled with use of Cardizem. She'll be admitted to observation for rate control and also evaluation by cardiology. The patient is currently anticoagulated and her INR initially was at 3.18. Currently her INR is at 3.78. The patient's warfarin will be held for one day. Also, the patient will be placed on a cardiac diet as tolerated. The patient may made to have a 2-D echocardiogram as it is a concern for heart failure secondary to atrial fibrillation. I've already discussed this with cardiology. The patient does not need to be anticoagulated as her INR is above 2.5. The patient will be kept on telemetry and her vital signs be monitored. I've encouraged ambulation. Patient presently be ready for discharge in 1-2 days and she may likely need to be transitioned to inpatient. Patient's treatment plan will be adjusted as conditions and information indicates.
[2017-07-18] MEDS: Ferrous Sulfate 325 MG Tab PO SCH (11:03)
[2017-07-18] MEDS: DULoxetine 60 MG Cap PO SCH (15:01)
[2017-07-18] MEDS ORDERED: Furosemide 40 MG/4 ML VIAL IVPUSH ONE (15:47)
--- NOTE | 2017-07-18 15:59 | CR ---
EXAM DATE: 07/17/17 PATIENT'S AGE: 66 Patient: REESE SHELDON Facility: [place], [place] Site . Site : 1950 Study: XRay Chest [id number]/10/2017 8:27:55 PM Ordering Physician: Ratna Isabel Final Report: INDICATION: Shortness of breath TECHNIQUE: Chest radiograph 1 view COMPARISON: None FINDINGS: Cardiovascular and mediastinum: Moderate cardiomegaly is present. The mediastinum is normal in appearance. Right axillary dissection clips are seen. Lungs and pleural spaces: Diffuse reticular interstitial infiltrates are present bilaterally. No sign of pleural effusion seen. No pneumothorax is identified. Bones and soft tissues: Mild levoscoliosis of the lumbar spine is partially visualized. IMPRESSION: 1. Diffuse reticular interstitial infiltrates are present bilaterally. These findings can be due to interstitial lung disease or interstitial edema. Dictated by Andrew Jc MD @ 07/17/2017 8:40:52 PM Dictated by: Andrew Jc MD @ 07/17/2017 20:40:56 (Electronic Signature) Report Signed by Proxy. [facility]IS[facility] HOSPITALSagrario
--- NOTE | 2017-07-18 18:58 | CONS ---
DATE OF CONSULTATION: DATE OF : 1950 PRIMARY CARE PHYSICIAN: Riccardo Sanchez MD REASON FOR CONSULTATION: AFib with RVR and heart failure. HISTORY OF PRESENT ILLNESS: This is a 66-year-old female with a history of COPD, hypertension, aortic valve replacement 2000, questioning CAD, history of mitral regurgitation. So she is here basically because of symptoms of shortness of breath, two days ago. She has been in her usual state of health. She can take care of herself, take care of the house until two days ago when she started walking upstairs and her stairs at home has 13 steps. She only took two steps and she felt being short of breath. She denied chest pain or heart racing, and she also had a positive PND and orthopnea as well, and then she called 911. She came to the hospital. However, she denied leg swelling. She was in [place] three weeks ago. She was admitted in the hospital for pneumonia but not heart failure. She has a history of heart failure three years ago and she has had stress test done in the past but she did not remember how long ago. She denied history of blockage or bypass surgery. When she came to the emergency room, she was found to have an atrial fibrillation with RVR and she was given Lasix 20 mg IV for heart failure as well as diltiazem 20 mg IV x1 and then she was admitted in the hospital. PAST MEDICAL HISTORY: Includes aortic valve replacement in 2000, mitral regurgitation, hypertension, history of heart failure, question of CAD. ALLERGIES: She has no known drug allergies. SOCIAL HISTORY: She denies smoking, drug use, or alcohol consumption. FAMILY HISTORY: Her mother had a history of . Her father had a history of cancer. CURRENT MEDICATION: Include diltiazem 20 mg IV q.6, Coreg 6.25 twice a day, and Coumadin. She stated that she takes Lasix 60 mg once a day as well as Coumadin 6 mg, and she checks her INR by herself and adjusts the Coumadin by herself as well. PHYSICAL EXAMINATION: VITAL SIGNS: The blood pressure is initial 131/83, currently 133/86. She got a heart rate of initial 125, currently 100 in atrial fibrillation. Temperature 36.3, O2 saturation 95% on 2 L, respirations 16. HEENT: Not pale. No jaundice. NECK: JVD elevated. HEART: Normal S1, S2. Totally irregular. No murmur or metallic click. LUNGS: Crackles bilaterally. ABDOMEN: Soft, nontender. Bowel sounds present. No hepatosplenomegaly. EXTREMITIES: Legs, no edema. INVESTIGATIONS: CBC showed WBC 8, hematocrit 40, platelet 194. INR 3.7, BNP 650, troponin negative. Sodium 141, potassium 4, chloride 102, bicarb 29, BUN 12, creatinine 0.1, eGFR more than 60, glucose 90. Liver function tests are normal. Urinalysis was positive for bacteria and WBC as well. Chest x-ray, pulmonary vascular congestion. EKG, 07/17/2017, showed atrial fibrillation, heart rate of 124, QRS duration 100, incomplete left bundle-branch block pattern. ASSESSMENT AND PLAN: This is a 66-year-old female with history of aortic valve replacement on anticoagulation, question of coronary artery disease, history of mitral regurgitation, history of hypertension, presented to the hospital with shortness of breath due to decompensated heart failure. I will recommend to give her Lasix 40 mg IV now and record her I's and O's and she should be limited for the fluid intake less than 2 L as well as sodium less than 2 grams. We will continue the Coreg 6.25 p.o. b.i.d. She denied increased salt intake or missing her dose of medication. We will also cycle cardiac enzymes as well. She is being treated for urinary tract infection with ciprofloxacin p.o. I will assess her aortic valve by doing an echocardiogram as well as assess her LVEF. She may need a stress test as an outpatient. With a history of smoking, she may need a PFT as an outpatient as well. KATELYN / STACEY /[id number]
[2017-07-18] MEDS: Cyclobenzaprine 10 MG Tab PO SCH (20:54)
[2017-07-18] MEDS: Temazepam 15 MG Cap PO PRN (21:59)
[2017-07-19 05:36] LABS: CHLORIDE,CL 101 mmol/L (98-110); SODIUM,NA 143 mmol/L (136-146)
[2017-07-19] MEDS: Omeprazole 20 MG Cap.CR PO SCH (06:37)
[2017-07-19] MEDS: traMADol 50 MG Tab PO SCH ×2 (06:37→13:54)
[2017-07-19] MEDS ORDERED: Furosemide 40 MG/4 ML VIAL IVPUSH ONE ×2 (08:11→20:00)
[2017-07-19] MEDS: Gabapentin 100 MG Cap PO SCH (08:24)
[2017-07-19] MEDS: DULoxetine 60 MG Cap PO SCH (08:25)
[2017-07-19] MEDS: Metoprolol Tartrate 50 MG Tab PO SCH ×2 (08:25→16:38)
[2017-07-19] MEDS: Ciprofloxacin 500 MG Tab PO SCH ×2 (08:25→21:40)
[2017-07-19] MEDS: Methadone 10 MG Tab PO SCH ×2 (08:26→21:40)
[2017-07-19] MEDS: Polyethylene Glycol 3350 Powder 17 GM Packet PO SCH (08:27)
--- NOTE | 2017-07-19 09:19 | PCM.PN ---
- General Info Date of Service: 07/19/17 Admission Dx/Problem (Free Text): 66F AVR ATC HTN COPD ?? CAD with unknown onset of AFib with decompensated HF Subjective Update: she felt better, lost 1 pound after lasix, output 1400, afib rate still in 100s. BP was in 100-110. Functional Status: Reports: Pain Controlled, Tolerating Diet - Review of Systems General: Reports: No Symptoms HEENT: Reports: No Symptoms Pulmonary: Reports: Shortness of Breath Cardiovascular: Reports: Other (Tachycardia) Gastrointestinal: Reports: No Symptoms Genitourinary: Reports: No Symptoms Musculoskeletal: Reports: No Symptoms Skin: Reports: No Symptoms Neurological: Reports: No Symptoms Psychiatric: Reports: No Symptoms - Patient Data Vitals - Most Recent: Last Vital Signs Temp 36.0 C 07/19/17 07:41 Pulse 126 H 07/19/17 08:25 Resp 19 07/19/17 07:41 BP 103/57 L 07/19/17 08:25 Pulse Ox 96 07/19/17 07:41 Weight - Most Recent: 67.8 kg I&O - Last 24 Hours: Intake & Output 07/18/17 07/19/17 07/19/17 22:59 06:59 14:59 Intake Total 340 370 Output Total 550 900 Balance -210 -530 Lab Results Last 24 Hours: Laboratory Results - last 24 hr 07/19/17 07/19/17 07/19/17 Range/Units 04:51 04:51 04:51 WBC 6.80 (4.0-11.0) K/uL RBC 4.61 (4.30-5.90) M/uL Hgb 13.1 (12.0-16.0) g/dL Hct 41.9 (36.0-46.0) % MCV 90.9 (80.0-98.0) fL MCH 28.4 (27.0-32.0) pg MCHC 31.3 (31.0-37.0) g/dL RDW Std Deviation 51.1 (28.0-62.0) fl RDW Coeff of Shaun 16 H (11.0-15.0) % Plt Count 219 (150-400) K/uL MPV 9.80 (7.40-12.00) fL Neut % (Auto) 55.9 (48.0-80.0) % Lymph % (Auto) 29.0 (16.0-40.0) % Green % (Auto) 11.2 (0.0-15.0) % Eos % (Auto) 3.5 (0.0-7.0) % Baso % (Auto) 0.4 (0.0-1.5) % Neut # (Auto) 3.8 (1.4-5.7) K/uL Lymph # (Auto) 2.0 (0.6-2.4) K/uL Green # (Auto) 0.8 (0.0-0.8) K/uL Eos # (Auto) 0.2 (0.0-0.7) K/uL Baso # (Auto) 0.0 (0.0-0.1) K/uL Nucleated RBC % 0.0 /100WBC Nucleated RBCs # 0 K/uL Sodium 143 (136-146) mmol/L Potassium 3.8 (3.5-5.1) mmol/L Chloride 101 (98-110) mmol/L Carbon Dioxide 33 H (21-31) mmol/L BUN 18 (6.0-23.0) mg/dL Creatinine 0.8 (0.6-1.5) mg/dL Est Cr Clr Drug Dosing 49.69 mL/min Estimated GFR (MDRD) > 60.0 ml/min Glucose 78 (60-110) mg/dL Hemoglobin A1c 5.4 (0.0-6.0) % Calcium 9.4 (8.8-10.8) mg/dL Magnesium (1.5-2.3) mEq/L Total Bilirubin 0.5 (0.1-1.5) mg/dL AST 19 (5-40) IU/L ALT 14 (8-54) IU/L Alkaline Phosphatase 89 (40-150) Total Protein 7.0 (6.0-8.0) g/dL Albumin 3.8 (3.4-4.8) g/dL Globulin 3.2 (2.0-3.5) g/dL Albumin/Globulin Ratio 1.2 L (1.3-2.8) Triglycerides 72 (10-190) mg/dL Cholesterol 218 (131-240) mg/dL LDL Cholesterol, Calc 132 (60-180) mg/dL VLDL Cholesterol 14 (5-55) mg/dL HDL Cholesterol 72 (40-80) mg/dL Cholesterol/HDL Ratio 3.0 L (3.3-6.0) 07/19/17 Range/Units 04:51 WBC (4.0-11.0) K/uL RBC (4.30-5.90) M/uL Hgb (12.0-16.0) g/dL Hct (36.0-46.0) % MCV (80.0-98.0) fL MCH (27.0-32.0) pg MCHC (31.0-37.0) g/dL RDW Std Deviation (28.0-62.0) fl RDW Coeff of Shaun (11.0-15.0) % Plt Count (150-400) K/uL MPV (7.40-12.00) fL Neut % (Auto) (48.0-80.0) % Lymph % (Auto) (16.0-40.0) % Green % (Auto) (0.0-15.0) % Eos % (Auto) (0.0-7.0) % Baso % (Auto) (0.0-1.5) % Neut # (Auto) (1.4-5.7) K/uL Lymph # (Auto) (0.6-2.4) K/uL Green # (Auto) (0.0-0.8) K/uL Eos # (Auto) (0.0-0.7) K/uL Baso # (Auto) (0.0-0.1) K/uL Nucleated RBC % /100WBC Nucleated RBCs # K/uL Sodium (136-146) mmol/L Potassium (3.5-5.1) mmol/L Chloride (98-110) mmol/L Carbon Dioxide (21-31) mmol/L BUN (6.0-23.0) mg/dL Creatinine (0.6-1.5) mg/dL Est Cr Clr Drug Dosing mL/min Estimated GFR (MDRD) ml/min Glucose (60-110) mg/dL Hemoglobin A1c (0.0-6.0) % Calcium (8.8-10.8) mg/dL Magnesium 1.7 (1.5-2.3) mEq/L Total Bilirubin (0.1-1.5) mg/dL AST (5-40) IU/L ALT (8-54) IU/L Alkaline Phosphatase (40-150) Total Protein (6.0-8.0) g/dL Albumin (3.4-4.8) g/dL Globulin (2.0-3.5) g/dL Albumin/Globulin Ratio (1.3-2.8) Triglycerides (10-190) mg/dL Cholesterol (131-240) mg/dL LDL Cholesterol, Calc (60-180) mg/dL VLDL Cholesterol (5-55) mg/dL HDL Cholesterol (40-80) mg/dL Cholesterol/HDL Ratio (3.3-6.0) Med Orders - Current: Current Medications Ciprofloxacin (Ciprofloxacin Hcl) 500 mg PO BID [facility] Last Admin: 07/19/17 08:25 Dose: 500 mg Cyclobenzaprine HCl (Flexeril) 10 mg PO BEDTIME [facility] Last Admin: 07/18/17 20:54 Dose: 10 mg Diltiazem HCl (Diltiazem) 20 mg IVPUSH Q6H PRN PRN Reason: Tachycardia Last Admin: 07/18/17 10:33 Dose: 20 mg Duloxetine HCl (Cymbalta) 60 mg PO DAILY [facility] Last Admin: 07/19/17 08:25 Dose: 60 mg Ferrous Sulfate (Ferrous Sulfate) 325 mg PO DAILY@1200 [facility] Last Admin: 07/18/17 11:03 Dose: 325 mg Gabapentin (Neurontin) 400 mg PO DAILY [facility] Last Admin: 07/19/17 08:24 Dose: 400 mg Methadone HCl (Methadone) 10 mg PO BEDTIME [facility] Last Admin: 07/18/17 20:53 Dose: 10 mg Methadone HCl (Methadone) 20 mg PO DAILY [facility] Last Admin: 07/19/17 08:26 Dose: 20 mg Metoprolol Tartrate (Lopressor) 50 mg PO BIDMEALS [facility] Last Admin: 07/19/17 08:25 Dose: 50 mg Omeprazole (Omeprazole) 40 mg PO ACBREAKFAST [facility] Last Admin: 07/19/17 06:37 Dose: 40 mg Amlodipine Bes/Olmesartan Med [Ayush 5-40 Mg Tablet] 6 Mg 1 each PO BIDPC PRN PRN Reason: Hypertension Polyethylene Glycol (Miralax) 17 gm PO DAILY [facility] Last Admin: 07/19/17 08:27 Dose: 17 gm Sodium Chloride (Saline Flush) 10 ml FLUSH ASDIRECTED PRN PRN Reason: Keep Vein Open Last Admin: 07/17/17 19:42 Dose: 10 ml Sodium Chloride (Saline Flush) 2.5 ml FLUSH ASDIRECTED PRN PRN Reason: Keep Vein Open Last Admin: 07/17/17 19:40 Dose: 2.5 ml Temazepam (Restoril) 15 mg PO BEDTIME PRN PRN Reason: Insomnia Last Admin: 07/18/17 21:59 Dose: 15 mg Tramadol HCl (Ultram) 50 mg PO Q8H [facility] Last Admin: 07/19/17 06:37 Dose: 50 mg Zaleplon (Sonata) 10 mg PO ASDIRECTED [place] Discontinued Medications Carvedilol (Coreg) 6.25 mg PO BID [facility] Last Admin: 07/18/17 20:56 Dose: 6.25 mg Diltiazem HCl (Diltiazem) 20 mg IVPUSH ONETIME ONE Stop: 07/17/17 19:52 Last Admin: 07/17/17 19:57 Dose: 20 mg Ferrous Sulfate (Ferrous Sulfate) 325 mg PO DAILY [facility] Furosemide (Lasix) 20 mg IVPUSH NOW ONE Stop: 07/17/17 20:50 Last Admin: 07/17/17 21:00 Dose: 20 mg Furosemide (Lasix) 40 mg PO ASDIRECTED PRN PRN Reason: Edema Furosemide (Lasix) 40 mg IVPUSH NOW ONE Stop: 07/18/17 15:48 Last Admin: 07/18/17 16:30 Dose: 40 mg Furosemide (Lasix) 40 mg IVPUSH NOW ONE Stop: 07/19/17 08:12 Last Admin: 07/19/17 08:48 Dose: 40 mg Methadone HCl (Methadone) 10 mg PO BID [facility] Last Admin: 07/18/17 08:13 Dose: 10 mg Methadone HCl (Methadone) 10 mg PO ONETIME ONE Stop: 07/18/17 10:16 Last Admin: 07/18/17 10:21 Dose: 10 mg Non-Formulary Medication (Iron,Carbonyl/Vit C/Vit B12/Fa [Iron 100 Plus Tablet] ) 65 mg PO DAILY [facility] Last Admin: 07/18/17 14:48 Dose: Not Given - Exam Quality Assessment: Supplemental Oxygen General: Alert, Oriented HEENT: Pupils Equal, Pupils Reactive, EOMI Neck: Supple, Trachea Midline, No Thyromegaly Lungs: Clear to Auscultation, Normal Respiratory Effort Cardiovascular: Irregular Rhythm, Tachycardia GI/Abdominal Exam: Normal Bowel Sounds, Soft, No Distention (Female) Exam: Deferred Back Exam: Decreased Range of Motion Extremities: No Pedal Edema Skin: Warm, Dry Neurological: No New Focal Deficit Psy/Mental Status: Alert, Normal Affect - Problem List & Annotations (1) New onset a-fib SNOMED Code(s): 53907350 Code(s): I48.91 - UNSPECIFIED ATRIAL FIBRILLATION Status: Chronic Priority: High Current Visit: Yes Annotation/Comment:: Medications adjusted by cardiology (2) Mechanical heart valve present SNOMED Code(s): 29201325934699, 02581069, 258371133, 131227392, 08327550945371 Code(s): Z95.2 - PRESENCE OF PROSTHETIC HEART VALVE Status: Chronic Priority: High Current Visit: Yes (3) Anticoagulated on Coumadin SNOMED Code(s): 40940125 Code(s): Z51.81 - ENCOUNTER FOR THERAPEUTIC DRUG LEVEL MONITORING; Z79.01 - SNF (CURRENT) USE OF ANTICOAGULANTS Status: Chronic Priority: Medium Current Visit: Yes (4) Dyspnea SNOMED Code(s): 110558758 Code(s): R06.00 - DYSPNEA, UNSPECIFIED Status: Acute Priority: High Current Visit: Yes Qualifiers: Dyspnea type: dyspnea on exertion Qualified Code(s): R06.09 - Other forms of dyspnea - Problem List Review Problem List Initiated/Reviewed/Updated: Yes - My Orders Last 24 Hours: My Active Orders 07/18/17 09:00 Ciprofloxacin [Ciprofloxacin HCl] 500 mg PO BID Gabapentin [Neurontin] 400 mg PO DAILY Polyethylene Glycol 3350 [MiraLAX] 17 gm PO DAILY 07/18/17 12:00 Ferrous Sulfate 325 mg PO DAILY@1200 07/18/17 12:23 Consult to Physician [CONS] Routine 07/18/17 12:24 Notify Provider Consults [RC] ASDIRECTED 07/18/17 15:00 DULoxetine [Cymbalta] 60 mg PO DAILY 07/18/17 21:00 Cyclobenzaprine [Flexeril] 10 mg PO BEDTIME Methadone 10 mg PO BEDTIME 07/19/17 08:35 INR,PT,PROTHROMBIN TIME [COAG] Routine 07/19/17 09:00 Methadone 20 mg PO DAILY - Plan Plan:: The patient is a 66-year-old lady who initially had presented for shortness of breath. She is improved somewhat today. She still remains tachycardic and in atrial fibrillation. Cardiology had adjusted the patient's medications. For now I recommended the patient continue is an inpatient and she'll be followed very close with cardiology. The patient is also having a 2-D echocardiogram soon. I believe that the patient has heart failure likely secondary to his atrial fibrillation. Patient will be started on warfarin as soon as her INR drops below 2.5. Otherwise she'll be continued on telemetry. The patient will have a comprehensive metabolic panel, CBC and PT/INR. Her treatment plan will be adjusted accordingly. She is to remain on her current diet. I've recommended that the patient continue with ambulation. Likely the patient will be appropriate to discharge in 1-2 days depending upon her heart rate.
--- NOTE | 2017-07-19 10:20 | PCM.PN ---
- General Info Date of Service: 07/19/17 Admission Dx/Problem (Free Text): 66F AVR ATC HTN COPD ?? CAD with unknown onset of AFib with decompensated HF Subjective Update: she felt better, lost 1 pound after lasix, output 1400, afib rate still in 100s. BP was in 100-110. Functional Status: Reports: Pain Controlled - Review of Systems General: Reports: No Symptoms HEENT: Reports: No Symptoms Pulmonary: Reports: Shortness of Breath Cardiovascular: Reports: No Symptoms Gastrointestinal: Reports: No Symptoms Genitourinary: Reports: No Symptoms Musculoskeletal: Reports: No Symptoms Skin: Reports: No Symptoms Neurological: Reports: No Symptoms Psychiatric: Reports: No Symptoms - Patient Data Vitals - Most Recent: Last Vital Signs Temp 36.0 C 07/19/17 07:41 Pulse 126 H 07/19/17 08:25 Resp 19 07/19/17 07:41 BP 103/57 L 07/19/17 08:25 Pulse Ox 96 07/19/17 07:41 Weight - Most Recent: 67.8 kg I&O - Last 24 Hours: Intake & Output 07/18/17 07/19/17 07/19/17 22:59 06:59 14:59 Intake Total 340 370 Output Total 550 900 Balance -210 -530 Lab Results Last 24 Hours: Laboratory Results - last 24 hr 07/19/17 07/19/17 07/19/17 Range/Units 04:51 04:51 04:51 WBC 6.80 (4.0-11.0) K/uL RBC 4.61 (4.30-5.90) M/uL Hgb 13.1 (12.0-16.0) g/dL Hct 41.9 (36.0-46.0) % MCV 90.9 (80.0-98.0) fL MCH 28.4 (27.0-32.0) pg MCHC 31.3 (31.0-37.0) g/dL RDW Std Deviation 51.1 (28.0-62.0) fl RDW Coeff of Shaun 16 H (11.0-15.0) % Plt Count 219 (150-400) K/uL MPV 9.80 (7.40-12.00) fL Neut % (Auto) 55.9 (48.0-80.0) % Lymph % (Auto) 29.0 (16.0-40.0) % Bryan % (Auto) 11.2 (0.0-15.0) % Eos % (Auto) 3.5 (0.0-7.0) % Baso % (Auto) 0.4 (0.0-1.5) % Neut # (Auto) 3.8 (1.4-5.7) K/uL Lymph # (Auto) 2.0 (0.6-2.4) K/uL Bryan # (Auto) 0.8 (0.0-0.8) K/uL Eos # (Auto) 0.2 (0.0-0.7) K/uL Baso # (Auto) 0.0 (0.0-0.1) K/uL Nucleated RBC % 0.0 /100WBC Nucleated RBCs # 0 K/uL Sodium 143 (136-146) mmol/L Potassium 3.8 (3.5-5.1) mmol/L Chloride 101 (98-110) mmol/L Carbon Dioxide 33 H (21-31) mmol/L BUN 18 (6.0-23.0) mg/dL Creatinine 0.8 (0.6-1.5) mg/dL Est Cr Clr Drug Dosing 49.69 mL/min Estimated GFR (MDRD) > 60.0 ml/min Glucose 78 (60-110) mg/dL Hemoglobin A1c 5.4 (0.0-6.0) % Calcium 9.4 (8.8-10.8) mg/dL Magnesium (1.5-2.3) mEq/L Total Bilirubin 0.5 (0.1-1.5) mg/dL AST 19 (5-40) IU/L ALT 14 (8-54) IU/L Alkaline Phosphatase 89 (40-150) Total Protein 7.0 (6.0-8.0) g/dL Albumin 3.8 (3.4-4.8) g/dL Globulin 3.2 (2.0-3.5) g/dL Albumin/Globulin Ratio 1.2 L (1.3-2.8) Triglycerides 72 (10-190) mg/dL Cholesterol 218 (131-240) mg/dL LDL Cholesterol, Calc 132 (60-180) mg/dL VLDL Cholesterol 14 (5-55) mg/dL HDL Cholesterol 72 (40-80) mg/dL Cholesterol/HDL Ratio 3.0 L (3.3-6.0) 07/19/17 Range/Units 04:51 WBC (4.0-11.0) K/uL RBC (4.30-5.90) M/uL Hgb (12.0-16.0) g/dL Hct (36.0-46.0) % MCV (80.0-98.0) fL MCH (27.0-32.0) pg MCHC (31.0-37.0) g/dL RDW Std Deviation (28.0-62.0) fl RDW Coeff of Shaun (11.0-15.0) % Plt Count (150-400) K/uL MPV (7.40-12.00) fL Neut % (Auto) (48.0-80.0) % Lymph % (Auto) (16.0-40.0) % Bryan % (Auto) (0.0-15.0) % Eos % (Auto) (0.0-7.0) % Baso % (Auto) (0.0-1.5) % Neut # (Auto) (1.4-5.7) K/uL Lymph # (Auto) (0.6-2.4) K/uL Bryan # (Auto) (0.0-0.8) K/uL Eos # (Auto) (0.0-0.7) K/uL Baso # (Auto) (0.0-0.1) K/uL Nucleated RBC % /100WBC Nucleated RBCs # K/uL Sodium (136-146) mmol/L Potassium (3.5-5.1) mmol/L Chloride (98-110) mmol/L Carbon Dioxide (21-31) mmol/L BUN (6.0-23.0) mg/dL Creatinine (0.6-1.5) mg/dL Est Cr Clr Drug Dosing mL/min Estimated GFR (MDRD) ml/min Glucose (60-110) mg/dL Hemoglobin A1c (0.0-6.0) % Calcium (8.8-10.8) mg/dL Magnesium 1.7 (1.5-2.3) mEq/L Total Bilirubin (0.1-1.5) mg/dL AST (5-40) IU/L ALT (8-54) IU/L Alkaline Phosphatase (40-150) Total Protein (6.0-8.0) g/dL Albumin (3.4-4.8) g/dL Globulin (2.0-3.5) g/dL Albumin/Globulin Ratio (1.3-2.8) Triglycerides (10-190) mg/dL Cholesterol (131-240) mg/dL LDL Cholesterol, Calc (60-180) mg/dL VLDL Cholesterol (5-55) mg/dL HDL Cholesterol (40-80) mg/dL Cholesterol/HDL Ratio (3.3-6.0) Med Orders - Current: Current Medications Ciprofloxacin (Ciprofloxacin Hcl) 500 mg PO BID [facility] Last Admin: 07/19/17 08:25 Dose: 500 mg Cyclobenzaprine HCl (Flexeril) 10 mg PO BEDTIME [facility] Last Admin: 07/18/17 20:54 Dose: 10 mg Diltiazem HCl (Diltiazem) 20 mg IVPUSH Q6H PRN PRN Reason: Tachycardia Last Admin: 07/18/17 10:33 Dose: 20 mg Duloxetine HCl (Cymbalta) 60 mg PO DAILY [facility] Last Admin: 07/19/17 08:25 Dose: 60 mg Ferrous Sulfate (Ferrous Sulfate) 325 mg PO DAILY@1200 [facility] Last Admin: 07/18/17 11:03 Dose: 325 mg Gabapentin (Neurontin) 400 mg PO DAILY [facility] Last Admin: 07/19/17 08:24 Dose: 400 mg Methadone HCl (Methadone) 10 mg PO BEDTIME [facility] Last Admin: 07/18/17 20:53 Dose: 10 mg Methadone HCl (Methadone) 20 mg PO DAILY [facility] Last Admin: 07/19/17 08:26 Dose: 20 mg Metoprolol Tartrate (Lopressor) 50 mg PO BIDMEALS [facility] Last Admin: 07/19/17 08:25 Dose: 50 mg Omeprazole (Omeprazole) 40 mg PO ACBREAKFAST [facility] Last Admin: 07/19/17 06:37 Dose: 40 mg Amlodipine Bes/Olmesartan Med [Ayush 5-40 Mg Tablet] 6 Mg 1 each PO BIDPC PRN PRN Reason: Hypertension Polyethylene Glycol (Miralax) 17 gm PO DAILY [facility] Last Admin: 07/19/17 08:27 Dose: 17 gm Sodium Chloride (Saline Flush) 10 ml FLUSH ASDIRECTED PRN PRN Reason: Keep Vein Open Last Admin: 07/17/17 19:42 Dose: 10 ml Sodium Chloride (Saline Flush) 2.5 ml FLUSH ASDIRECTED PRN PRN Reason: Keep Vein Open Last Admin: 07/17/17 19:40 Dose: 2.5 ml Temazepam (Restoril) 15 mg PO BEDTIME PRN PRN Reason: Insomnia Last Admin: 07/18/17 21:59 Dose: 15 mg Tramadol HCl (Ultram) 50 mg PO Q8H [facility] Last Admin: 07/19/17 06:37 Dose: 50 mg Zaleplon (Sonata) 10 mg PO ASDIRECTED [place] Discontinued Medications Carvedilol (Coreg) 6.25 mg PO BID [facility] Last Admin: 07/18/17 20:56 Dose: 6.25 mg Diltiazem HCl (Diltiazem) 20 mg IVPUSH ONETIME ONE Stop: 07/17/17 19:52 Last Admin: 07/17/17 19:57 Dose: 20 mg Ferrous Sulfate (Ferrous Sulfate) 325 mg PO DAILY [facility] Furosemide (Lasix) 20 mg IVPUSH NOW ONE Stop: 07/17/17 20:50 Last Admin: 07/17/17 21:00 Dose: 20 mg Furosemide (Lasix) 40 mg PO ASDIRECTED PRN PRN Reason: Edema Furosemide (Lasix) 40 mg IVPUSH NOW ONE Stop: 07/18/17 15:48 Last Admin: 07/18/17 16:30 Dose: 40 mg Furosemide (Lasix) 40 mg IVPUSH NOW ONE Stop: 07/19/17 08:12 Last Admin: 07/19/17 08:48 Dose: 40 mg Methadone HCl (Methadone) 10 mg PO BID [facility] Last Admin: 07/18/17 08:13 Dose: 10 mg Methadone HCl (Methadone) 10 mg PO ONETIME ONE Stop: 07/18/17 10:16 Last Admin: 07/18/17 10:21 Dose: 10 mg Non-Formulary Medication (Iron,Carbonyl/Vit C/Vit B12/Fa [Iron 100 Plus Tablet] ) 65 mg PO DAILY [facility] Last Admin: 07/18/17 14:48 Dose: Not Given - Exam Quality Assessment: Supplemental Oxygen General: Alert, Oriented HEENT: Pupils Equal Neck: JVD Lungs: Rales Cardiovascular: Irregular Rhythm GI/Abdominal Exam: Normal Bowel Sounds, Soft (Female) Exam: Normal External Exam Back Exam: Normal Inspection Extremities: Normal Inspection EKG INTERPRETATION Rhythm: A-Fib - Problem List Review Problem List Initiated/Reviewed/Updated: Yes - My Orders Last 24 Hours: My Active Orders 07/18/17 15:29 Echo Comp wo Cont [US] Routine 07/18/17 16:04 Intake and Output Strict [RC] ASDIRECTED 07/18/17 Dinner Fluid Restriction [DIET] 07/19/17 08:15 Metoprolol Tartrate [Lopressor] 50 mg PO BIDMEALS - Plan Plan:: 66F AVR 2000 ?? MR unknown onset of AFib HLP decompensated HF 1. decompensated HF: prelim report for echo showed decline EF probably 30-35%, her AVR seemed austin tilting disc, normal functioning valve ring well seated. DVI 0.74, AT < 100 msec, Vamx 2.2 PG 11, will do additional view for MV. will continue lasix 40 IV, patient will most likely need ACEI aldactone. Will need coronary angiogram but this can be set up as outpt. 2. Afib RVR, unknown onset, she already need care home ATC, .she is minimally symptomatic for heart racing. I will change coreg to metoprolol 50 BID.
[2017-07-19] MEDS: Ferrous Sulfate 325 MG Tab PO SCH (11:12)
[2017-07-19] MEDS: ALPRAZolam 0.5 MG Tab PO PRN (15:29)
[2017-07-19] MEDS ORDERED: Warfarin 2 MG Tab PO SCH (16:30)
[2017-07-19] MEDS ORDERED: Warfarin 5 MG Tab PO SCH (16:30)
[2017-07-19] MEDS: Warfarin 2 MG Tab PO SCH (16:38)
[2017-07-19] MEDS ORDERED: Ondansetron 8 MG Tab.DIS PO PRN (18:11)
[2017-07-19] MEDS: Cyclobenzaprine 10 MG Tab PO SCH (21:40)
[2017-07-20] MEDS: traMADol 50 MG Tab PO SCH ×4 (00:07→22:06)
[2017-07-20] MEDS: Omeprazole 20 MG Cap.CR PO SCH (06:47)
[2017-07-20] MEDS: Polyethylene Glycol 3350 Powder 17 GM Packet PO SCH (08:12)
[2017-07-20] MEDS: Gabapentin 100 MG Cap PO SCH (08:15)
[2017-07-20] MEDS: Ciprofloxacin 500 MG Tab PO SCH ×2 (08:15→20:49)
[2017-07-20] MEDS: DULoxetine 60 MG Cap PO SCH (08:16)
[2017-07-20] MEDS: Metoprolol Tartrate 50 MG Tab PO SCH ×2 (08:16→16:46)
[2017-07-20] MEDS: Methadone 10 MG Tab PO SCH ×2 (08:16→20:48)
[2017-07-20] MEDS ORDERED: Furosemide 40 MG/4 ML VIAL IVPUSH ONE (09:38)
[2017-07-20] MEDS ORDERED: Lisinopril 5 MG Tab PO STA (09:40)
[2017-07-20] MEDS: Ferrous Sulfate 325 MG Tab PO SCH (11:44)
[2017-07-20] MEDS: Warfarin 2 MG Tab PO SCH (14:50)
[2017-07-20] MEDS: ALPRAZolam 0.5 MG Tab PO PRN (14:58)
--- NOTE | 2017-07-20 16:31 | CR ---
EXAMINATION: Two-view chest (PA and Lateral views). HISTORY: Top. FINDINGS: The trachea is midline. The heart is borderline in size. Median sternotomy wires are noted. The cardi omediastinal silhouette is within normal limits. No pulmonary infiltrates, effusions or pneumothorax. Stable chronic interstitial prominence. Osseous structures appear osteopenic. IMPRESSION: No acute cardiopulmonary process.
--- NOTE | 2017-07-20 17:14 | PCM.PN ---
- General Info Date of Service: 07/20/17 Admission Dx/Problem (Free Text): 66F AVR ATC HTN COPD ?? CAD with unknown onset of AFib with decompensated HF Subjective Update: The patient is doing better. She's been up walking. She has no pain presently. The patient is very concerned about her health and concern for wheezing as to why she has shortness of breath. Functional Status: Reports: Pain Controlled, Tolerating Diet - Review of Systems General: Reports: No Symptoms HEENT: Reports: No Symptoms Pulmonary: Reports: Shortness of Breath Cardiovascular: Reports: No Symptoms Gastrointestinal: Reports: No Symptoms Genitourinary: Reports: No Symptoms Musculoskeletal: Reports: No Symptoms Skin: Reports: No Symptoms Neurological: Reports: No Symptoms Psychiatric: Reports: No Symptoms - Patient Data Vitals - Most Recent: Last Vital Signs Temp 35.8 C 07/20/17 16:00 Pulse 95 07/20/17 16:46 Resp 22 H 07/20/17 16:00 BP 93/51 L 07/20/17 16:46 Pulse Ox 91 L 07/20/17 16:00 Weight - Most Recent: 67.8 kg Med Orders - Current: Current Medications Alprazolam (Xanax) 0.5 mg PO Q8H PRN PRN Reason: Anxiety Last Admin: 07/20/17 14:58 Dose: 0.5 mg Ciprofloxacin (Ciprofloxacin Hcl) 500 mg PO BID [facility] Last Admin: 07/20/17 08:15 Dose: 500 mg Cyclobenzaprine HCl (Flexeril) 10 mg PO BEDTIME [facility] Last Admin: 07/19/17 21:40 Dose: 10 mg Diltiazem HCl (Diltiazem) 20 mg IVPUSH Q6H PRN PRN Reason: Tachycardia Last Admin: 07/18/17 10:33 Dose: 20 mg Duloxetine HCl (Cymbalta) 60 mg PO DAILY [facility] Last Admin: 07/20/17 08:16 Dose: 60 mg Ferrous Sulfate (Ferrous Sulfate) 325 mg PO DAILY@1200 [facility] Last Admin: 07/20/17 11:44 Dose: 325 mg Gabapentin (Neurontin) 400 mg PO DAILY [facility] Last Admin: 07/20/17 08:15 Dose: 400 mg Lisinopril (Prinivil) 2.5 mg PO DAILY [facility] Methadone HCl (Methadone) 10 mg PO BEDTIME [facility] Last Admin: 07/19/17 21:40 Dose: 10 mg Methadone HCl (Methadone) 20 mg PO DAILY [facility] Last Admin: 07/20/17 08:16 Dose: 20 mg Metoprolol Tartrate (Lopressor) 50 mg PO BIDMEALS [facility] Last Admin: 07/20/17 16:46 Dose: Not Given Omeprazole (Omeprazole) 40 mg PO ACBREAKFAST [facility] Last Admin: 07/20/17 06:47 Dose: 40 mg Ondansetron HCl (Zofran Odt) 8 mg PO TID PRN PRN Reason: Nausea/Vomiting Last Admin: 07/19/17 18:26 Dose: 8 mg Amlodipine Bes/Olmesartan Med [Ayush 5-40 Mg Tablet] 6 Mg 1 each PO BIDPC PRN PRN Reason: Hypertension Polyethylene Glycol (Miralax) 17 gm PO DAILY [facility] Last Admin: 07/20/17 08:12 Dose: 17 gm Sodium Chloride (Saline Flush) 10 ml FLUSH ASDIRECTED PRN PRN Reason: Keep Vein Open Last Admin: 07/17/17 19:42 Dose: 10 ml Sodium Chloride (Saline Flush) 2.5 ml FLUSH ASDIRECTED PRN PRN Reason: Keep Vein Open Last Admin: 07/17/17 19:40 Dose: 2.5 ml Temazepam (Restoril) 15 mg PO BEDTIME PRN PRN Reason: Insomnia Last Admin: 07/18/17 21:59 Dose: 15 mg Tramadol HCl (Ultram) 50 mg PO Q8H [facility] Last Admin: 07/20/17 14:51 Dose: 50 mg Warfarin Sodium (Coumadin) 4 mg PO DAILY@1400 [facility] Last Admin: 07/20/17 14:50 Dose: 4 mg Zaleplon (Sonata) 10 mg PO ASDIRECTED [facility] Discontinued Medications Carvedilol (Coreg) 6.25 mg PO BID [facility] Last Admin: 07/18/17 20:56 Dose: 6.25 mg Diltiazem HCl (Diltiazem) 20 mg IVPUSH ONETIME ONE Stop: 07/17/17 19:52 Last Admin: 07/17/17 19:57 Dose: 20 mg Ferrous Sulfate (Ferrous Sulfate) 325 mg PO DAILY [facility] Furosemide (Lasix) 20 mg IVPUSH NOW ONE Stop: 07/17/17 20:50 Last Admin: 07/17/17 21:00 Dose: 20 mg Furosemide (Lasix) 40 mg PO ASDIRECTED PRN PRN Reason: Edema Furosemide (Lasix) 40 mg IVPUSH NOW ONE Stop: 07/18/17 15:48 Last Admin: 07/18/17 16:30 Dose: 40 mg Furosemide (Lasix) 40 mg IVPUSH NOW ONE Stop: 07/19/17 08:12 Last Admin: 07/19/17 08:48 Dose: 40 mg Furosemide (Lasix) 40 mg IVPUSH ONETIME ONE Stop: 07/19/17 20:01 Last Admin: 07/19/17 19:46 Dose: 40 mg Furosemide (Lasix) 40 mg IVPUSH NOW ONE Stop: 07/20/17 09:39 Last Admin: 07/20/17 10:11 Dose: 40 mg Lisinopril (Prinivil) 2.5 mg PO NOW STA Stop: 07/20/17 09:41 Last Admin: 07/20/17 10:13 Dose: 2.5 mg Methadone HCl (Methadone) 10 mg PO BID [facility] Last Admin: 07/18/17 08:13 Dose: 10 mg Methadone HCl (Methadone) 10 mg PO ONETIME ONE Stop: 07/18/17 10:16 Last Admin: 07/18/17 10:21 Dose: 10 mg Non-Formulary Medication (Iron,Carbonyl/Vit C/Vit B12/Fa [Iron 100 Plus Tablet] ) 65 mg PO DAILY [facility] Last Admin: 07/18/17 14:48 Dose: Not Given Warfarin Sodium (Coumadin Ask) 1 each PO ONETIME ONE Stop: 07/19/17 16:10 Last Admin: 07/19/17 16:43 Dose: Not Given Warfarin Sodium (Coumadin) 4 mg PO DAILY@1400 [facility] - Exam Quality Assessment: Supplemental Oxygen General: Alert, Oriented, Cooperative, No Acute Distress HEENT: Pupils Equal, Pupils Reactive Neck: Supple, Trachea Midline Lungs: Clear to Auscultation, Normal Respiratory Effort Cardiovascular: Irregular Rhythm, Tachycardia GI/Abdominal Exam: Normal Bowel Sounds, Soft, No Distention (Female) Exam: Deferred Back Exam: Decreased Range of Motion Extremities: No Pedal Edema Skin: Warm, Dry Neurological: No New Focal Deficit Psy/Mental Status: Alert, Normal Affect, Normal Mood - Problem List & Annotations (1) New onset a-fib SNOMED Code(s): 65580323 Code(s): I48.91 - UNSPECIFIED ATRIAL FIBRILLATION Status: Chronic Priority: High Current Visit: Yes Annotation/Comment:: Medications adjusted by cardiology (2) Mechanical heart valve present SNOMED Code(s): 16506546411407, 63032342, 373167424, 112162169, 47692213201406 Code(s): Z95.2 - PRESENCE OF PROSTHETIC HEART VALVE Status: Chronic Priority: High Current Visit: Yes (3) Anticoagulated on Coumadin SNOMED Code(s): 83738995 Code(s): Z51.81 - ENCOUNTER FOR THERAPEUTIC DRUG LEVEL MONITORING; Z79.01 - 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 The patient had been started on medications for heart failure primarily metoprolol and PATRICIA inhibitor. Patient's blood pressure currently is 93/51 mmHg. Her pulses controlled at 95 bpm. I don't think the patient is ready for discharge today but will need to have her medications adjusted so the patient is asymptomatic. The patient is feeling somewhat better today although she is still short of breath. Her oxygen saturation is 91% on 2 L via nasal cannula. Patient should be ambulated with pulse oximetry without oxygen in order to ascertain her pulse ox and if it drops below 80% may consider for home oxygen. The patient also has had her 2-D echocardiogram which shows that she has a depressed ejection fraction of 30-35%. This is the rationale for the PATRICIA inhibitor. I do not feel that the patient's blood pressure is safe for discharging her home currently. I'll revisit this issue in the morning.
--- NOTE | 2017-07-20 17:40 | PCM.PN ---
- General Info Date of Service: 07/20/17 Admission Dx/Problem (Free Text): 66F unknown onset afib s/p AVF MR HTN COPD with sCHF Subjective Update: breathing improved, however patient reported chill with greenish productive cough - Review of Systems General: Reports: Fever HEENT: Reports: No Symptoms Pulmonary: Reports: Shortness of Breath Cardiovascular: Reports: No Symptoms Gastrointestinal: Reports: No Symptoms Genitourinary: Reports: No Symptoms Musculoskeletal: Reports: No Symptoms Skin: Reports: No Symptoms Neurological: Reports: No Symptoms Psychiatric: Reports: No Symptoms - Patient Data Vitals - Most Recent: Last Vital Signs Temp 35.8 C 07/20/17 16:00 Pulse 95 07/20/17 16:46 Resp 22 H 07/20/17 16:00 BP 93/51 L 07/20/17 16:46 Pulse Ox 91 L 07/20/17 16:00 Weight - Most Recent: 67.8 kg Med Orders - Current: Current Medications Alprazolam (Xanax) 0.5 mg PO Q8H PRN PRN Reason: Anxiety Last Admin: 07/20/17 14:58 Dose: 0.5 mg Ciprofloxacin (Ciprofloxacin Hcl) 500 mg PO BID [facility] Last Admin: 07/20/17 08:15 Dose: 500 mg Cyclobenzaprine HCl (Flexeril) 10 mg PO BEDTIME [facility] Last Admin: 07/19/17 21:40 Dose: 10 mg Diltiazem HCl (Diltiazem) 20 mg IVPUSH Q6H PRN PRN Reason: Tachycardia Last Admin: 07/18/17 10:33 Dose: 20 mg Duloxetine HCl (Cymbalta) 60 mg PO DAILY [facility] Last Admin: 07/20/17 08:16 Dose: 60 mg Ferrous Sulfate (Ferrous Sulfate) 325 mg PO DAILY@1200 [facility] Last Admin: 07/20/17 11:44 Dose: 325 mg Gabapentin (Neurontin) 400 mg PO DAILY [facility] Last Admin: 07/20/17 08:15 Dose: 400 mg Lisinopril (Prinivil) 2.5 mg PO DAILY [facility] Methadone HCl (Methadone) 10 mg PO BEDTIME [facility] Last Admin: 07/19/17 21:40 Dose: 10 mg Methadone HCl (Methadone) 20 mg PO DAILY [facility] Last Admin: 07/20/17 08:16 Dose: 20 mg Metoprolol Tartrate (Lopressor) 50 mg PO BIDMEALS [facility] Last Admin: 07/20/17 16:46 Dose: Not Given Omeprazole (Omeprazole) 40 mg PO ACBREAKFAST [facility] Last Admin: 07/20/17 06:47 Dose: 40 mg Ondansetron HCl (Zofran Odt) 8 mg PO TID PRN PRN Reason: Nausea/Vomiting Last Admin: 07/19/17 18:26 Dose: 8 mg Amlodipine Bes/Olmesartan Med [Ayush 5-40 Mg Tablet] 6 Mg 1 each PO BIDPC PRN PRN Reason: Hypertension Polyethylene Glycol (Miralax) 17 gm PO DAILY [facility] Last Admin: 07/20/17 08:12 Dose: 17 gm Sodium Chloride (Saline Flush) 10 ml FLUSH ASDIRECTED PRN PRN Reason: Keep Vein Open Last Admin: 07/17/17 19:42 Dose: 10 ml Sodium Chloride (Saline Flush) 2.5 ml FLUSH ASDIRECTED PRN PRN Reason: Keep Vein Open Last Admin: 07/17/17 19:40 Dose: 2.5 ml Temazepam (Restoril) 15 mg PO BEDTIME PRN PRN Reason: Insomnia Last Admin: 07/18/17 21:59 Dose: 15 mg Tramadol HCl (Ultram) 50 mg PO Q8H [facility] Last Admin: 07/20/17 14:51 Dose: 50 mg Warfarin Sodium (Coumadin) 4 mg PO DAILY@1400 [facility] Last Admin: 07/20/17 14:50 Dose: 4 mg Zaleplon (Sonata) 10 mg PO ASDIRECTED [facility] Discontinued Medications Carvedilol (Coreg) 6.25 mg PO BID [facility] Last Admin: 07/18/17 20:56 Dose: 6.25 mg Diltiazem HCl (Diltiazem) 20 mg IVPUSH ONETIME ONE Stop: 07/17/17 19:52 Last Admin: 07/17/17 19:57 Dose: 20 mg Ferrous Sulfate (Ferrous Sulfate) 325 mg PO DAILY [facility] Furosemide (Lasix) 20 mg IVPUSH NOW ONE Stop: 07/17/17 20:50 Last Admin: 07/17/17 21:00 Dose: 20 mg Furosemide (Lasix) 40 mg PO ASDIRECTED PRN PRN Reason: Edema Furosemide (Lasix) 40 mg IVPUSH NOW ONE Stop: 07/18/17 15:48 Last Admin: 07/18/17 16:30 Dose: 40 mg Furosemide (Lasix) 40 mg IVPUSH NOW ONE Stop: 07/19/17 08:12 Last Admin: 07/19/17 08:48 Dose: 40 mg Furosemide (Lasix) 40 mg IVPUSH ONETIME ONE Stop: 07/19/17 20:01 Last Admin: 07/19/17 19:46 Dose: 40 mg Furosemide (Lasix) 40 mg IVPUSH NOW ONE Stop: 07/20/17 09:39 Last Admin: 07/20/17 10:11 Dose: 40 mg Lisinopril (Prinivil) 2.5 mg PO NOW STA Stop: 07/20/17 09:41 Last Admin: 07/20/17 10:13 Dose: 2.5 mg Methadone HCl (Methadone) 10 mg PO BID [facility] Last Admin: 07/18/17 08:13 Dose: 10 mg Methadone HCl (Methadone) 10 mg PO ONETIME ONE Stop: 07/18/17 10:16 Last Admin: 07/18/17 10:21 Dose: 10 mg Non-Formulary Medication (Iron,Carbonyl/Vit C/Vit B12/Fa [Iron 100 Plus Tablet] ) 65 mg PO DAILY [facility] Last Admin: 07/18/17 14:48 Dose: Not Given Warfarin Sodium (Coumadin Ask) 1 each PO ONETIME ONE Stop: 07/19/17 16:10 Last Admin: 07/19/17 16:43 Dose: Not Given Warfarin Sodium (Coumadin) 4 mg PO DAILY@1400 [facility] - Exam Quality Assessment: Supplemental Oxygen General: Alert, Oriented HEENT: Pupils Equal Neck: Supple, Other (JVD improved) Lungs: Rales Cardiovascular: Regular Rate GI/Abdominal Exam: Normal Bowel Sounds (Female) Exam: Normal External Exam Back Exam: Normal Inspection Extremities: Normal Inspection EKG INTERPRETATION Rhythm: A-Fib - Problem List Review Problem List Initiated/Reviewed/Updated: Yes - Plan Plan:: 66F AVR 2000 ?? MR unknown onset of AFib HLP decompensated HF 1. decompensated HF: prelim report for echo showed decline EF probably 30-35%, her AVR seemed to be tilting disc, normal functioning valve ring well seated. DVI 0.74, AT < 100 msec, Vamx 2.2 PG 11, will do additional view for MV. will restart lasix 60 PO daily tomorrow, BP was 90/60, on metoprolol 50 BID, with lisinopril 2.5 daily. coronary angiogram but this can be set up as outpt. 2. Afib RVR, unknown onset, she already need [facility] ATC, .she is minimally symptomatic for heart racing. continue metoprolol 50 BID. 3. greenish productive cough, no evidence of PNA on CXR no leukocytosis
[2017-07-20] MEDS: Cyclobenzaprine 10 MG Tab PO SCH (20:49)
[2017-07-20] MEDS: Temazepam 15 MG Cap PO PRN (20:49)
[2017-07-21] MEDS: traMADol 50 MG Tab PO SCH ×3 (05:51→22:34)
[2017-07-21] MEDS: Omeprazole 20 MG Cap.CR PO SCH (06:37)
[2017-07-21] MEDS: Gabapentin 100 MG Cap PO SCH (08:11)
[2017-07-21] MEDS: Ciprofloxacin 500 MG Tab PO SCH ×2 (08:13→21:43)
[2017-07-21] MEDS: DULoxetine 60 MG Cap PO SCH (08:14)
[2017-07-21] MEDS: Polyethylene Glycol 3350 Powder 17 GM Packet PO SCH (08:14)
[2017-07-21] MEDS ORDERED: Lisinopril 5 MG Tab PO SCH ×2 (09:00→21:00)
[2017-07-21] MEDS: Methadone 10 MG Tab PO SCH ×2 (09:10→21:42)
[2017-07-21] MEDS: Metoprolol Tartrate 50 MG Tab PO SCH (09:11)
[2017-07-21] MEDS: Furosemide 20 MG Tab PO SCH (09:11)
[2017-07-21] MEDS: Metoprolol Succinate 25 MG Tab.ER PO SCH ×2 (09:12)
[2017-07-21] MEDS: Digoxin 500 MCG/2 ML Amp IVPUSH SCH ×2 (09:13→11:17)
[2017-07-21] MEDS: Digoxin 250 MCG Tab PO SCH (09:21)
[2017-07-21] MEDS: Ferrous Sulfate 325 MG Tab PO SCH (11:18)
[2017-07-21] MEDS: Warfarin 2 MG Tab PO SCH (13:41)
--- NOTE | 2017-07-21 14:15 | PCM.PN ---
- General Info Date of Service: 07/21/17 Admission Dx/Problem (Free Text): 66F AVR 2000 ?? MR unknown onset of AFib HLP decompensated HF Subjective Update: breathing remained unchanged, however her BP was dropping, she walking around but she felt slight dizzy. CXR no PNA, with improvement of CHF Functional Status: Reports: Pain Controlled - Review of Systems General: Reports: No Symptoms HEENT: Reports: No Symptoms Pulmonary: Reports: Shortness of Breath Cardiovascular: Reports: No Symptoms Gastrointestinal: Reports: No Symptoms Genitourinary: Reports: No Symptoms Musculoskeletal: Reports: No Symptoms Skin: Reports: No Symptoms Neurological: Reports: Dizziness Psychiatric: Reports: No Symptoms - Patient Data Vitals - Most Recent: Last Vital Signs Temp 36.1 C 07/21/17 12:00 Pulse 100 07/21/17 12:15 Resp 20 07/21/17 12:00 BP 86/41 L 07/21/17 12:15 Pulse Ox 96 07/21/17 12:15 Weight - Most Recent: 67.8 kg I&O - Last 24 Hours: Intake & Output 07/20/17 07/21/17 07/21/17 22:59 06:59 14:59 Intake Total 900 890 Output Total 600 450 Balance 300 440 Lab Results Last 24 Hours: Laboratory Results - last 24 hr 07/21/17 07/21/17 Range/Units 04:37 04:37 WBC 6.99 (4.0-11.0) K/uL RBC 4.30 (4.30-5.90) M/uL Hgb 12.3 (12.0-16.0) g/dL Hct 39.6 (36.0-46.0) % MCV 92.1 (80.0-98.0) fL MCH 28.6 (27.0-32.0) pg MCHC 31.1 (31.0-37.0) g/dL RDW Std Deviation 48.8 (28.0-62.0) fl RDW Coeff of Shaun 15 (11.0-15.0) % Plt Count 219 (150-400) K/uL MPV 10.20 (7.40-12.00) fL Neut % (Auto) 46.4 L (48.0-80.0) % Lymph % (Auto) 35.8 (16.0-40.0) % [place] % (Auto) 13.6 (0.0-15.0) % Eos % (Auto) 4.1 (0.0-7.0) % Baso % (Auto) 0.1 (0.0-1.5) % Neut # (Auto) 3.2 (1.4-5.7) K/uL Lymph # (Auto) 2.5 H (0.6-2.4) K/uL [place] # (Auto) 1.0 H (0.0-0.8) K/uL Eos # (Auto) 0.3 (0.0-0.7) K/uL Baso # (Auto) 0.0 (0.0-0.1) K/uL Sodium 139 (136-146) mmol/L Potassium 4.4 (3.5-5.1) mmol/L Chloride 97 L (98-110) mmol/L Carbon Dioxide 33 H (21-31) mmol/L BUN 41 H (6.0-23.0) mg/dL Creatinine 1.4 (0.6-1.5) mg/dL Est Cr Clr Drug Dosing 28.39 mL/min Estimated GFR (MDRD) 37.6 ml/min Glucose 84 (60-110) mg/dL Calcium 8.6 L (8.8-10.8) mg/dL Med Orders - Current: Current Medications Alprazolam (Xanax) 0.5 mg PO Q8H PRN PRN Reason: Anxiety Last Admin: 07/20/17 14:58 Dose: 0.5 mg Ciprofloxacin (Ciprofloxacin Hcl) 500 mg PO BID [facility] Last Admin: 07/21/17 08:13 Dose: 500 mg Cyclobenzaprine HCl (Flexeril) 10 mg PO BEDTIME [facility] Last Admin: 07/20/17 20:49 Dose: 10 mg Digoxin (Lanoxin) 250 mcg IVPUSH DAILY [facility] Stop: 07/22/17 09:01 Last Admin: 07/21/17 11:17 Dose: 250 mcg Digoxin (Lanoxin) 250 mcg PO DAILY [facility] Diltiazem HCl (Diltiazem) 20 mg IVPUSH Q6H PRN PRN Reason: Tachycardia Last Admin: 07/18/17 10:33 Dose: 20 mg Duloxetine HCl (Cymbalta) 60 mg PO DAILY [facility] Last Admin: 07/21/17 08:14 Dose: 60 mg Ferrous Sulfate (Ferrous Sulfate) 325 mg PO DAILY@1200 [facility] Last Admin: 07/21/17 11:18 Dose: 325 mg Furosemide (Lasix) 60 mg PO DAILY [facility] Last Admin: 07/21/17 09:11 Dose: 60 mg Gabapentin (Neurontin) 400 mg PO DAILY [facility] Last Admin: 07/21/17 08:11 Dose: 400 mg Methadone HCl (Methadone) 10 mg PO BEDTIME [facility] Last Admin: 07/20/17 20:48 Dose: 10 mg Methadone HCl (Methadone) 20 mg PO DAILY [facility] Last Admin: 07/21/17 09:10 Dose: 20 mg Metoprolol Succinate (Toprol Xl) 50 mg PO DAILY [facility] Omeprazole (Omeprazole) 40 mg PO ACBREAKFAST [facility] Last Admin: 07/21/17 06:37 Dose: 40 mg Ondansetron HCl (Zofran Odt) 8 mg PO TID PRN PRN Reason: Nausea/Vomiting Last Admin: 07/19/17 18:26 Dose: 8 mg Amlodipine Bes/Olmesartan Med [Ayush 5-40 Mg Tablet] 6 Mg 1 each PO BIDPC PRN PRN Reason: Hypertension Polyethylene Glycol (Miralax) 17 gm PO DAILY [facility] Last Admin: 07/21/17 08:14 Dose: 17 gm Sodium Chloride (Saline Flush) 10 ml FLUSH ASDIRECTED PRN PRN Reason: Keep Vein Open Last Admin: 07/17/17 19:42 Dose: 10 ml Sodium Chloride (Saline Flush) 2.5 ml FLUSH ASDIRECTED PRN PRN Reason: Keep Vein Open Last Admin: 07/17/17 19:40 Dose: 2.5 ml Temazepam (Restoril) 15 mg PO BEDTIME PRN PRN Reason: Insomnia Last Admin: 07/20/17 20:49 Dose: 15 mg Tramadol HCl (Ultram) 50 mg PO Q8H [facility] Last Admin: 07/21/17 13:46 Dose: 50 mg Warfarin Sodium (Coumadin) 4 mg PO DAILY@1400 [facility] Last Admin: 07/21/17 13:41 Dose: 4 mg Zaleplon (Sonata) 10 mg PO ASDIRECTED [facility] Discontinued Medications Carvedilol (Coreg) 6.25 mg PO BID [facility] Last Admin: 07/18/17 20:56 Dose: 6.25 mg Digoxin (Lanoxin) 250 mcg PO DAILY [facility] Last Admin: 07/21/17 09:21 Dose: Not Given Diltiazem HCl (Diltiazem) 20 mg IVPUSH ONETIME ONE Stop: 07/17/17 19:52 Last Admin: 07/17/17 19:57 Dose: 20 mg Ferrous Sulfate (Ferrous Sulfate) 325 mg PO DAILY [facility] Furosemide (Lasix) 20 mg IVPUSH NOW ONE Stop: 07/17/17 20:50 Last Admin: 07/17/17 21:00 Dose: 20 mg Furosemide (Lasix) 40 mg PO ASDIRECTED PRN PRN Reason: Edema Furosemide (Lasix) 40 mg IVPUSH NOW ONE Stop: 07/18/17 15:48 Last Admin: 07/18/17 16:30 Dose: 40 mg Furosemide (Lasix) 40 mg IVPUSH NOW ONE Stop: 07/19/17 08:12 Last Admin: 07/19/17 08:48 Dose: 40 mg Furosemide (Lasix) 40 mg IVPUSH ONETIME ONE Stop: 07/19/17 20:01 Last Admin: 07/19/17 19:46 Dose: 40 mg Furosemide (Lasix) 40 mg IVPUSH NOW ONE Stop: 07/20/17 09:39 Last Admin: 07/20/17 10:11 Dose: 40 mg Lisinopril (Prinivil) 2.5 mg PO DAILY [facility] Lisinopril (Prinivil) 2.5 mg PO NOW STA Stop: 07/20/17 09:41 Last Admin: 07/20/17 10:13 Dose: 2.5 mg Lisinopril (Prinivil) 2.5 mg PO DAILY [facility] Methadone HCl (Methadone) 10 mg PO BID [facility] Last Admin: 07/18/17 08:13 Dose: 10 mg Methadone HCl (Methadone) 10 mg PO ONETIME ONE Stop: 07/18/17 10:16 Last Admin: 07/18/17 10:21 Dose: 10 mg Metoprolol Succinate (Toprol Xl) 75 mg PO DAILY [facility] Last Admin: 07/21/17 09:12 Dose: 75 mg [facility]ol [facility] ([facility]) [facility] Last Admin: 07/21/17 09:11 Dose: Not Given Non-Formulary Medication (Iron,Carbonyl/Vit C/Vit B12/Fa [Iron 100 Plus Tablet] ) 65 mg PO DAILY [facility] Last Admin: 07/18/17 14:48 Dose: Not Given Warfarin Sodium (Coumadin Ask) 1 each PO ONETIME ONE Stop: 07/19/17 16:10 Last Admin: 07/19/17 16:43 Dose: Not Given Warfarin Sodium (Coumadin) 4 mg PO DAILY@1400 [facility] - Exam Quality Assessment: Supplemental Oxygen General: Alert, Oriented HEENT: Pupils Equal, Pupils Reactive Neck: JVD Lungs: Rales Cardiovascular: Irregular Rhythm GI/Abdominal Exam: Normal Bowel Sounds (Female) Exam: Normal External Exam Back Exam: Normal Inspection Extremities: Normal Inspection EKG INTERPRETATION Rhythm: A-Fib - Problem List Review Problem List Initiated/Reviewed/Updated: Yes - My Orders Last 24 Hours: My Active Orders 07/21/17 09:00 Digoxin [Lanoxin] 250 mcg IVPUSH DAILY Furosemide [Lasix] 60 mg PO DAILY 07/22/17 09:00 Digoxin [Lanoxin] 250 mcg PO DAILY Metoprolol Succinate [Toprol XL] 50 mg PO DAILY - Plan Plan:: 66F AVR 2000 ?? MR unknown onset of AFib HLP decompensated HF 1. decompensated HF: prelim report for echo showed decline EF probably 30-35%, her AVR seemed to be tilting disc, normal functioning valve ring well seated. DVI 0.74, AT < 100 msec, Vamx 2.2 PG 11, will do additional view for MV. will restart lasix 60 PO daily tomorrow, BP was 90/60, on metoprolol 50 BID, with lisinopril 2.5 daily. coronary angiogram but this can be set up as outpt. 2. Afib RVR, unknown onset, she already need long term ATC from AVR, her BP was low today, will hold BB, ACEI, digoxin 250 IV x 2 q 4hr given. reassess tomorrow 3. greenish productive cough, no evidence of PNA on CXR no leukocytosis
[2017-07-21] MEDS: ALPRAZolam 0.5 MG Tab PO PRN (15:52)
--- NOTE | 2017-07-21 16:42 | ECHO ---
EXAM DATE: 07/20/17 PATIENT'S AGE: 66 The echocardiogram report can be seen in this patient's EMR (Electronic Medical Record) in the Reports section. The report has also been scanned into PACS. JE[facility]
--- NOTE | 2017-07-21 17:25 | PCM.PN ---
- General Info Date of Service: 07/21/17 Admission Dx/Problem (Free Text): 66F AVR 2000 ?? MR unknown onset of AFib HLP decompensated HF Subjective Update: The patient is physically tired. She has no energy. Functional Status: Reports: Pain Controlled, Tolerating Diet - Review of Systems General: Reports: Weakness, Fatigue HEENT: Reports: No Symptoms Pulmonary: Reports: Shortness of Breath Cardiovascular: Reports: Palpitations Gastrointestinal: Reports: Decreased Appetite Genitourinary: Reports: No Symptoms Musculoskeletal: Reports: No Symptoms Skin: Reports: No Symptoms Neurological: Reports: No Symptoms Psychiatric: Reports: No Symptoms - Patient Data Vitals - Most Recent: Last Vital Signs Temp 35.6 C 07/21/17 16:00 Pulse 81 07/21/17 16:00 Resp 20 07/21/17 16:00 BP 84/43 L 07/21/17 16:00 Pulse Ox 94 L 07/21/17 16:00 Weight - Most Recent: 67.8 kg I&O - Last 24 Hours: Intake & Output 07/21/17 07/21/17 07/21/17 06:59 14:59 22:59 Intake Total 890 300 Output Total 450 650 Balance 440 -350 Lab Results Last 24 Hours: Laboratory Results - last 24 hr 07/21/17 07/21/17 Range/Units 04:37 04:37 WBC 6.99 (4.0-11.0) K/uL RBC 4.30 (4.30-5.90) M/uL Hgb 12.3 (12.0-16.0) g/dL Hct 39.6 (36.0-46.0) % MCV 92.1 (80.0-98.0) fL MCH 28.6 (27.0-32.0) pg MCHC 31.1 (31.0-37.0) g/dL RDW Std Deviation 48.8 (28.0-62.0) fl RDW Coeff of Shaun 15 (11.0-15.0) % Plt Count 219 (150-400) K/uL MPV 10.20 (7.40-12.00) fL Neut % (Auto) 46.4 L (48.0-80.0) % Lymph % (Auto) 35.8 (16.0-40.0) % [place] % (Auto) 13.6 (0.0-15.0) % Eos % (Auto) 4.1 (0.0-7.0) % Baso % (Auto) 0.1 (0.0-1.5) % Neut # (Auto) 3.2 (1.4-5.7) K/uL Lymph # (Auto) 2.5 H (0.6-2.4) K/uL [place] # (Auto) 1.0 H (0.0-0.8) K/uL Eos # (Auto) 0.3 (0.0-0.7) K/uL Baso # (Auto) 0.0 (0.0-0.1) K/uL Sodium 139 (136-146) mmol/L Potassium 4.4 (3.5-5.1) mmol/L Chloride 97 L (98-110) mmol/L Carbon Dioxide 33 H (21-31) mmol/L BUN 41 H (6.0-23.0) mg/dL Creatinine 1.4 (0.6-1.5) mg/dL Est Cr Clr Drug Dosing 28.39 mL/min Estimated GFR (MDRD) 37.6 ml/min Glucose 84 (60-110) mg/dL Calcium 8.6 L (8.8-10.8) mg/dL Med Orders - Current: Current Medications Alprazolam (Xanax) 0.5 mg PO Q8H PRN PRN Reason: Anxiety Last Admin: 07/21/17 15:52 Dose: 0.5 mg Ciprofloxacin (Ciprofloxacin Hcl) 500 mg PO BID [facility] Last Admin: 07/21/17 08:13 Dose: 500 mg Cyclobenzaprine HCl (Flexeril) 10 mg PO BEDTIME [facility] Last Admin: 07/20/17 20:49 Dose: 10 mg Digoxin (Lanoxin) 250 mcg IVPUSH DAILY [facility] Stop: 07/22/17 09:01 Last Admin: 07/21/17 11:17 Dose: 250 mcg Digoxin (Lanoxin) 250 mcg PO DAILY [facility] Diltiazem HCl (Diltiazem) 20 mg IVPUSH Q6H PRN PRN Reason: Tachycardia Last Admin: 07/18/17 10:33 Dose: 20 mg Duloxetine HCl (Cymbalta) 60 mg PO DAILY [facility] Last Admin: 09/14/17 08:14 Dose: 60 mg Ferrous Sulfate (Ferrous Sulfate) 325 mg PO DAILY@1200 [facility] Last Admin: 07/21/17 11:18 Dose: 325 mg Furosemide (Lasix) 60 mg PO DAILY [facility] Last Admin: 07/21/17 09:11 Dose: 60 mg Gabapentin (Neurontin) 400 mg PO DAILY [facility] Last Admin: 07/21/17 08:11 Dose: 400 mg Methadone HCl (Methadone) 10 mg PO BEDTIME [facility] Last Admin: 07/20/17 20:48 Dose: 10 mg Methadone HCl (Methadone) 20 mg PO DAILY [facility] Last Admin: 07/21/17 09:10 Dose: 20 mg Metoprolol Succinate (Toprol Xl) 50 mg PO DAILY [facility] Omeprazole (Omeprazole) 40 mg PO ACBREAKFAST [facility] Last Admin: 07/21/17 06:37 Dose: 40 mg Ondansetron HCl (Zofran Odt) 8 mg PO TID PRN PRN Reason: Nausea/Vomiting Last Admin: 07/19/17 18:26 Dose: 8 mg Amlodipine Bes/Olmesartan Med [Ayush 5-40 Mg Tablet] 6 Mg 1 each PO BIDPC PRN PRN Reason: Hypertension Polyethylene Glycol (Miralax) 17 gm PO DAILY [facility] Last Admin: 07/21/17 08:14 Dose: 17 gm Sodium Chloride (Saline Flush) 10 ml FLUSH ASDIRECTED PRN PRN Reason: Keep Vein Open Last Admin: 07/17/17 19:42 Dose: 10 ml Sodium Chloride (Saline Flush) 2.5 ml FLUSH ASDIRECTED PRN PRN Reason: Keep Vein Open Last Admin: 07/17/17 19:40 Dose: 2.5 ml Temazepam (Restoril) 15 mg PO BEDTIME PRN PRN Reason: Insomnia Last Admin: 07/20/17 20:49 Dose: 15 mg Tramadol HCl (Ultram) 50 mg PO Q8H [facility] Last Admin: 07/21/17 13:46 Dose: 50 mg Warfarin Sodium (Coumadin) 4 mg PO DAILY@1400 [facility] Last Admin: 07/21/17 13:41 Dose: 4 mg Zaleplon (Sonata) 10 mg PO ASDIRECTED [facility] Discontinued Medications Carvedilol (Coreg) 6.25 mg PO BID [facility] Last Admin: 07/18/17 20:56 Dose: 6.25 mg Digoxin (Lanoxin) 250 mcg PO DAILY [facility] Last Admin: 07/21/17 09:21 Dose: Not Given Diltiazem HCl (Diltiazem) 20 mg IVPUSH ONETIME ONE Stop: 07/17/17 19:52 Last Admin: 07/17/17 19:57 Dose: 20 mg Ferrous Sulfate (Ferrous Sulfate) 325 mg PO DAILY [facility] Furosemide (Lasix) 20 mg IVPUSH NOW ONE Stop: 07/17/17 20:50 Last Admin: 07/17/17 21:00 Dose: 20 mg Furosemide (Lasix) 40 mg PO ASDIRECTED PRN PRN Reason: Edema Furosemide (Lasix) 40 mg IVPUSH NOW ONE Stop: 07/18/17 15:48 Last Admin: 07/18/17 16:30 Dose: 40 mg Furosemide (Lasix) 40 mg IVPUSH NOW ONE Stop: 07/19/17 08:12 Last Admin: 07/19/17 08:48 Dose: 40 mg Furosemide (Lasix) 40 mg IVPUSH ONETIME ONE Stop: 07/19/17 20:01 Last Admin: 07/19/17 19:46 Dose: 40 mg Furosemide (Lasix) 40 mg IVPUSH NOW ONE Stop: 07/20/17 09:39 Last Admin: 07/20/17 10:11 Dose: 40 mg Lisinopril (Prinivil) 2.5 mg PO DAILY [facility] Lisinopril (Prinivil) 2.5 mg PO NOW STA Stop: 07/20/17 09:41 Last Admin: 07/20/17 10:13 Dose: 2.5 mg Lisinopril (Prinivil) 2.5 mg PO DAILY [facility] Methadone HCl (Methadone) 10 mg PO BID [facility] Last Admin: 07/18/17 08:13 Dose: 10 mg Methadone HCl (Methadone) 10 mg PO ONETIME ONE Stop: 07/18/17 10:16 Last Admin: 07/18/17 10:21 Dose: 10 mg Metoprolol Succinate (Toprol Xl) 75 mg PO DAILY [facility] Last Admin: 07/21/17 09:12 Dose: 75 mg Metoprolol Tartrate (Lopressor) 50 mg PO BIDMEALS [facility] Last Admin: 07/21/17 09:11 Dose: Not Given Non-Formulary Medication (Iron,Carbonyl/Vit C/Vit B12/Fa [Iron 100 Plus Tablet] ) 65 mg PO DAILY [facility] Last Admin: 07/18/17 14:48 Dose: Not Given Warfarin Sodium (Coumadin Ask) 1 each PO ONETIME ONE Stop: 07/19/17 16:10 Last Admin: 07/19/17 16:43 Dose: Not Given Warfarin Sodium (Coumadin) 4 mg PO DAILY@1400 [facility] - Exam Quality Assessment: Supplemental Oxygen General: Alert, Oriented, Sedated HEENT: Pupils Equal, Pupils Reactive Neck: Supple, Trachea Midline Lungs: Clear to Auscultation, Normal Respiratory Effort Cardiovascular: Irregular Rhythm, Tachycardia GI/Abdominal Exam: Normal Bowel Sounds, No Distention Back Exam: Decreased Range of Motion Extremities: No Pedal Edema Skin: Warm, Dry Neurological: No New Focal Deficit Psy/Mental Status: Alert, Normal Affect - Problem List & Annotations (1) New onset a-fib SNOMED Code(s): 90028460 Code(s): I48.91 - UNSPECIFIED ATRIAL FIBRILLATION Status: Chronic Priority: High Current Visit: Yes Annotation/Comment:: Better rate control today. (2) Mechanical heart valve present SNOMED Code(s): 22739099260755, 40566952, 849234748, 990625190, 10811313363406 Code(s): Z95.2 - PRESENCE OF PROSTHETIC HEART VALVE Status: Chronic Priority: High Current Visit: Yes (3) Anticoagulated on Coumadin SNOMED Code(s): 42862917 Code(s): Z51.81 - ENCOUNTER FOR THERAPEUTIC DRUG LEVEL MONITORING; Z79.01 - APPLICATION SUPPORT INTERN (CURRENT) USE OF ANTICOAGULANTS Status: Chronic Priority: Medium Current Visit: Yes (4) Dyspnea SNOMED Code(s): 292800207 Code(s): R06.00 - DYSPNEA, UNSPECIFIED Status: Acute Priority: High Current Visit: Yes Qualifiers: Dyspnea type: dyspnea on exertion Qualified Code(s): R06.09 - Other forms of dyspnea (5) Hypotension due to medication Status: Acute Priority: High Current Visit: Yes - Problem List Review Problem List Initiated/Reviewed/Updated: Yes - Plan Plan:: The patient is a 66-year-old lady who does show evidence of heart failure with an ejection fraction of 30-35%. The patient does have a mechanical aortic valve but she does have aortic valve regurgitation. The first breaker feeder and said that the valve is normally functioning. She has had difficulties with low blood pressure mainly her last blood pressure was 84/43 mmHg. Oxygen saturations are at 94% on 2 L via nasal cannula. The patient's atrial fibrillation is somewhat improved and her heart rate his drop to around 95 bpm. She has been continued by a first breaker feeder on metoprolol, lisinopril and Lasix. Cardiology is also recommended that she continue with her digoxin as well. I'm concerned with the degree of difficulty that the patient has been having keeping her blood pressure. Currently at this time to get for better clarification from cardiology. The patient is not ready to go home yet but is anticipated that if her blood pressure normalizes and her atrial fibrillation is well controlled she 'll likely be appropriate for discharge. For now patient will be kept on telemetry. And I have ordered further laboratory testing for the morning. The patient should also continue to ambulate with assistance. The patient's INR today is 2.16 and she should be restarted on her warfarin. The INR will be ordered for the morning.
[2017-07-21] MEDS: Cyclobenzaprine 10 MG Tab PO SCH (21:42)
[2017-07-22] MEDS: traMADol 50 MG Tab PO SCH ×3 (06:28→23:37)
[2017-07-22] MEDS: Omeprazole 20 MG Cap.CR PO SCH (06:30)
[2017-07-22] MEDS: Gabapentin 100 MG Cap PO SCH (08:36)
[2017-07-22] MEDS: Ciprofloxacin 500 MG Tab PO SCH ×2 (08:37→20:35)
[2017-07-22] MEDS: Methadone 10 MG Tab PO SCH ×2 (08:37→20:35)
[2017-07-22] MEDS: Furosemide 20 MG Tab PO SCH (08:38)
[2017-07-22] MEDS: Metoprolol Succinate 50 MG Tab.ER PO SCH (08:38)
[2017-07-22] MEDS: DULoxetine 60 MG Cap PO SCH (08:38)
[2017-07-22] MEDS: Polyethylene Glycol 3350 Powder 17 GM Packet PO SCH (08:38)
[2017-07-22] MEDS ORDERED: Digoxin 250 MCG Tab PO SCH (09:00)
[2017-07-22] MEDS: Ferrous Sulfate 325 MG Tab PO SCH (12:01)
[2017-07-22] MEDS: Warfarin 2 MG Tab PO SCH (13:48)
[2017-07-22] MEDS ORDERED: Lisinopril 5 MG Tab PO SCH (14:15)
--- NOTE | 2017-07-22 15:33 | PCM.PN ---
- General Info Date of Service: 07/22/17 Subjective Update: dyspnea on exertion noted. She states that she does not have home oxygen. - Patient Data Vitals - Most Recent: Last Vital Signs Temp 96.0 F 07/22/17 11:21 Pulse 76 07/22/17 11:21 Resp 20 07/22/17 11:21 BP 110/70 07/22/17 15:05 Pulse Ox 97 07/22/17 11:21 Weight - Most Recent: 67.8 kg I&O - Last 24 Hours: Intake & Output 07/22/17 07/22/17 07/22/17 06:59 14:59 22:59 Intake Total 310 Output Total 900 Balance -590 Lab Results Last 24 Hours: Laboratory Results - last 24 hr 07/22/17 07/22/17 07/22/17 Range/Units 05:12 05:12 05:12 WBC 6.12 (4.0-11.0) K/uL RBC 4.59 (4.30-5.90) M/uL Hgb 13.0 (12.0-16.0) g/dL Hct 42.3 (36.0-46.0) % MCV 92.2 (80.0-98.0) fL MCH 28.3 (27.0-32.0) pg MCHC 30.7 L (31.0-37.0) g/dL RDW Std Deviation 51.3 (28.0-62.0) fl RDW Coeff of Shaun 15 (11.0-15.0) % Plt Count 253 (150-400) K/uL MPV 9.70 (7.40-12.00) fL Neut % (Auto) 49.8 (48.0-80.0) % Lymph % (Auto) 35.5 (16.0-40.0) % [place] % (Auto) 10.0 (0.0-15.0) % Eos % (Auto) 4.4 (0.0-7.0) % Baso % (Auto) 0.3 (0.0-1.5) % Neut # (Auto) 3.1 (1.4-5.7) K/uL Lymph # (Auto) 2.2 (0.6-2.4) K/uL [place] # (Auto) 0.6 (0.0-0.8) K/uL Eos # (Auto) 0.3 (0.0-0.7) K/uL Baso # (Auto) 0.0 (0.0-0.1) K/uL Nucleated RBC % 0.0 /100WBC Nucleated RBCs # 0 K/uL INR 2.28 H (0.86-1.11) Sodium 138 (136-146) mmol/L Potassium 4.8 (3.5-5.1) mmol/L Chloride 101 (98-110) mmol/L Carbon Dioxide 33 H (21-31) mmol/L BUN 39 H (6.0-23.0) mg/dL Creatinine 1.1 (0.6-1.5) mg/dL Est Cr Clr Drug Dosing 36.14 mL/min Estimated GFR (MDRD) 49.7 ml/min Glucose 96 (60-110) mg/dL Calcium 8.9 (8.8-10.8) mg/dL Total Bilirubin 0.4 (0.1-1.5) mg/dL AST 21 (5-40) IU/L ALT 17 (8-54) IU/L Alkaline Phosphatase 105 (40-150) Total Protein 6.6 (6.0-8.0) g/dL Albumin 3.7 (3.4-4.8) g/dL Globulin 2.9 (2.0-3.5) g/dL Albumin/Globulin Ratio 1.3 (1.3-2.8) Med Orders - Current: Current Medications Alprazolam (Xanax) 0.5 mg PO Q8H PRN PRN Reason: Anxiety Last Admin: 07/21/17 15:52 Dose: 0.5 mg Ciprofloxacin (Ciprofloxacin Hcl) 500 mg PO BID [facility] Last Admin: 07/22/17 08:37 Dose: 500 mg Cyclobenzaprine HCl (Flexeril) 10 mg PO BEDTIME [facility] Last Admin: 07/21/17 21:42 Dose: 10 mg Digoxin (Lanoxin) 125 mcg PO DAILY [facility] Diltiazem HCl (Diltiazem) 20 mg IVPUSH Q6H PRN PRN Reason: Tachycardia Last Admin: 07/18/17 10:33 Dose: 20 mg Duloxetine HCl (Cymbalta) 60 mg PO DAILY [facility] Last Admin: 07/22/17 08:38 Dose: 60 mg Ferrous Sulfate (Ferrous Sulfate) 325 mg PO DAILY@1200 [facility] Last Admin: 07/22/17 12:01 Dose: 325 mg Furosemide (Lasix) 60 mg PO DAILY [facility] Last Admin: 07/22/17 08:38 Dose: 60 mg Gabapentin (Neurontin) 400 mg PO DAILY [facility] Last Admin: 07/22/17 08:36 Dose: 400 mg Lisinopril (Prinivil) 2.5 mg PO DAILY [facility] Last Admin: 07/22/17 15:05 Dose: 2.5 mg Methadone HCl (Methadone) 10 mg PO BEDTIME [facility] Last Admin: 07/21/17 21:42 Dose: 10 mg Methadone HCl (Methadone) 20 mg PO DAILY [facility] Last Admin: 07/22/17 08:37 Dose: 20 mg Metoprolol Succinate (Toprol Xl) 50 mg PO DAILY [facility] Last Admin: 07/22/17 08:38 Dose: 50 mg Omeprazole (Omeprazole) 40 mg PO ACBREAKFAST [facility] Last Admin: 07/22/17 06:30 Dose: 40 mg Ondansetron HCl (Zofran Odt) 8 mg PO TID PRN PRN Reason: Nausea/Vomiting Last Admin: 07/19/17 18:26 Dose: 8 mg Amlodipine Bes/Olmesartan Med [Ayush 5-40 Mg Tablet] 6 Mg 1 each PO BIDPC PRN PRN Reason: Hypertension Polyethylene Glycol (Miralax) 17 gm PO DAILY [facility] Last Admin: 07/22/17 08:38 Dose: 17 gm Sodium Chloride (Saline Flush) 10 ml FLUSH ASDIRECTED PRN PRN Reason: Keep Vein Open Last Admin: 07/17/17 19:42 Dose: 10 ml Sodium Chloride (Saline Flush) 2.5 ml FLUSH ASDIRECTED PRN PRN Reason: Keep Vein Open Last Admin: 07/17/17 19:40 Dose: 2.5 ml Temazepam (Restoril) 15 mg PO BEDTIME PRN PRN Reason: Insomnia Last Admin: 07/20/17 20:49 Dose: 15 mg Tramadol HCl (Ultram) 50 mg PO Q8H [facility] Last Admin: 07/22/17 13:48 Dose: 50 mg Warfarin Sodium (Coumadin) 4 mg PO DAILY@1400 [facility] Last Admin: 07/22/17 13:48 Dose: 4 mg Zaleplon (Sonata) 10 mg PO ASDIRECTED [facility] Discontinued Medications Carvedilol (Coreg) 6.25 mg PO BID [facility] Last Admin: 07/18/17 20:56 Dose: 6.25 mg Digoxin (Lanoxin) 250 mcg PO DAILY [facility] Last Admin: 07/21/17 09:21 Dose: Not Given Digoxin (Lanoxin) 250 mcg IVPUSH DAILY [facility] Stop: 07/22/17 09:01 Last Admin: 07/21/17 11:17 Dose: 250 mcg Digoxin (Lanoxin) 250 mcg PO DAILY [facility] Last Admin: 07/22/17 08:37 Dose: 250 mcg Diltiazem HCl (Diltiazem) 20 mg IVPUSH ONETIME ONE Stop: 07/17/17 19:52 Last Admin: 07/17/17 19:57 Dose: 20 mg Ferrous Sulfate (Ferrous Sulfate) 325 mg PO DAILY [facility] Furosemide (Lasix) 20 mg IVPUSH NOW ONE Stop: 07/17/17 20:50 Last Admin: 07/17/17 21:00 Dose: 20 mg Furosemide (Lasix) 40 mg PO ASDIRECTED PRN PRN Reason: Edema Furosemide (Lasix) 40 mg IVPUSH NOW ONE Stop: 07/18/17 15:48 Last Admin: 07/18/17 16:30 Dose: 40 mg Furosemide (Lasix) 40 mg IVPUSH NOW ONE Stop: 07/19/17 08:12 Last Admin: 07/19/17 08:48 Dose: 40 mg Furosemide (Lasix) 40 mg IVPUSH ONETIME ONE Stop: 07/19/17 20:01 Last Admin: 07/19/17 19:46 Dose: 40 mg Furosemide (Lasix) 40 mg IVPUSH NOW ONE Stop: 07/20/17 09:39 Last Admin: 07/20/17 10:11 Dose: 40 mg Lisinopril (Prinivil) 2.5 mg PO DAILY [facility] Lisinopril (Prinivil) 2.5 mg PO NOW STA Stop: 07/20/17 09:41 Last Admin: 07/20/17 10:13 Dose: 2.5 mg Lisinopril (Prinivil) 2.5 mg PO DAILY [facility] Methadone HCl (Methadone) 10 mg PO BID [facility] Last Admin: 07/18/17 08:13 Dose: 10 mg Methadone HCl (Methadone) 10 mg PO ONETIME ONE Stop: 07/18/17 10:16 Last Admin: 07/18/17 10:21 Dose: 10 mg Metoprolol Succinate (Toprol Xl) 75 mg PO DAILY [facility] Last Admin: 07/21/17 09:12 Dose: 75 mg Metoprolol Tartrate (Lopressor) 50 mg PO BIDMEALS [facility] Last Admin: 07/21/17 09:11 Dose: Not Given Non-Formulary Medication (Iron,Carbonyl/Vit C/Vit B12/Fa [Iron 100 Plus Tablet] ) 65 mg PO DAILY [facility] Last Admin: 07/18/17 14:48 Dose: Not Given Warfarin Sodium (Coumadin Ask) 1 each PO ONETIME ONE Stop: 07/19/17 16:10 Last Admin: 07/19/17 16:43 Dose: Not Given Warfarin Sodium (Coumadin) 4 mg PO DAILY@1400 [facility] - Exam General: Alert, Oriented Neck: Trachea Midline Lungs: Clear to Auscultation, Normal Respiratory Effort Cardiovascular: Regular Rate, Regular Rhythm, Other (crisp mechanical heart sounds) - Problem List & Annotations (1) CHF (congestive heart failure) SNOMED Code(s): 39799006 Code(s): I50.9 - HEART FAILURE, UNSPECIFIED Status: Acute Current Visit: Yes (2) Mechanical heart valve present SNOMED Code(s): 46497444446202, 88610650, 319155749, 592229458, 27446107275425 Code(s): Z95.2 - PRESENCE OF PROSTHETIC HEART VALVE Status: Chronic Priority: High Current Visit: Yes (3) New onset a-fib SNOMED Code(s): 38475557 Code(s): I48.91 - UNSPECIFIED ATRIAL FIBRILLATION Status: Chronic Priority: High Current Visit: Yes Annotation/Comment:: Better rate control today. - Problem List Review Problem List Initiated/Reviewed/Updated: Yes - My Orders Last 24 Hours: My Active Orders 07/23/17 05:11 BASIC METABOLIC PANEL,BMP [CHEM] AM INR,PT,PROTHROMBIN TIME [COAG] AM MG [MAGNESIUM] [CHEM] AM - Plan Plan:: The patient is a 66-year-old lady who does show evidence of heart failure with an ejection fraction of 30-35%. The patient does have a mechanical aortic valve but she does have aortic valve regurgitation. The rn bariatric and said that the valve is normally functioning. She has had difficulties with low blood pressure mainly her last blood pressure was 84/43 mmHg. Oxygen saturations are at 94% on 2 L via nasal cannula. The patient's atrial fibrillation is somewhat improved and her heart rate his drop to around 95 bpm. She has been continued by a rn bariatric on metoprolol, lisinopril and Lasix. Cardiology is also recommended that she continue with her digoxin as well. I'm concerned with the degree of difficulty that the patient has been having keeping her blood pressure. Currently at this time to get for better clarification from cardiology. The patient is not ready to go home yet but is anticipated that if her blood pressure normalizes and her atrial fibrillation is well controlled she 'll likely be appropriate for discharge. For now patient will be kept on telemetry. And I have ordered further laboratory testing for the morning. The patient should also continue to ambulate with assistance. The patient's INR today is 2.16 and she should be restarted on her warfarin. The INR will be ordered for the morning. 07/22/2016 I discussed case with Dr Zabala, cardiology. Anticipate discharge tomorrow home. She has family members living with her and caring for her. Umer Carpenter MD
--- NOTE | 2017-07-22 17:59 | PCM.PN ---
- General Info Date of Service: 07/22/17 Admission Dx/Problem (Free Text): 66F AVR 2000 ?? MR unknown onset of AFib HLP decompensated HF Subjective Update: she has felt better, breathing improved, HR improved, BP improved. - Review of Systems General: Reports: No Symptoms HEENT: Reports: No Symptoms Pulmonary: Reports: Shortness of Breath Cardiovascular: Reports: No Symptoms, Orthopnea Gastrointestinal: Reports: No Symptoms Genitourinary: Reports: No Symptoms Musculoskeletal: Reports: No Symptoms Skin: Reports: No Symptoms Neurological: Reports: No Symptoms Psychiatric: Reports: No Symptoms - Patient Data Vitals - Most Recent: Last Vital Signs Temp 35.8 C 07/22/17 16:00 Pulse 82 07/22/17 16:00 Resp 20 07/22/17 16:00 BP 126/62 07/22/17 16:00 Pulse Ox 94 L 07/22/17 16:00 Weight - Most Recent: 67.8 kg I&O - Last 24 Hours: Intake & Output 07/22/17 07/22/17 07/22/17 06:59 14:59 22:59 Intake Total 310 900 Output Total 900 1000 Balance -590 -100 Lab Results Last 24 Hours: Laboratory Results - last 24 hr 07/22/17 07/22/17 07/22/17 Range/Units 05:12 05:12 05:12 WBC 6.12 (4.0-11.0) K/uL RBC 4.59 (4.30-5.90) M/uL Hgb 13.0 (12.0-16.0) g/dL Hct 42.3 (36.0-46.0) % MCV 92.2 (80.0-98.0) fL MCH 28.3 (27.0-32.0) pg MCHC 30.7 L (31.0-37.0) g/dL RDW Std Deviation 51.3 (28.0-62.0) fl RDW Coeff of Shaun 15 (11.0-15.0) % Plt Count 253 (150-400) K/uL MPV 9.70 (7.40-12.00) fL Neut % (Auto) 49.8 (48.0-80.0) % Lymph % (Auto) 35.5 (16.0-40.0) % [place] % (Auto) 10.0 (0.0-15.0) % Eos % (Auto) 4.4 (0.0-7.0) % Baso % (Auto) 0.3 (0.0-1.5) % Neut # (Auto) 3.1 (1.4-5.7) K/uL Lymph # (Auto) 2.2 (0.6-2.4) K/uL [place] # (Auto) 0.6 (0.0-0.8) K/uL Eos # (Auto) 0.3 (0.0-0.7) K/uL Baso # (Auto) 0.0 (0.0-0.1) K/uL Nucleated RBC % 0.0 /100WBC Nucleated RBCs # 0 K/uL INR 2.28 H (0.86-1.11) Sodium 138 (136-146) mmol/L Potassium 4.8 (3.5-5.1) mmol/L Chloride 101 (98-110) mmol/L Carbon Dioxide 33 H (21-31) mmol/L BUN 39 H (6.0-23.0) mg/dL Creatinine 1.1 (0.6-1.5) mg/dL Est Cr Clr Drug Dosing 36.14 mL/min Estimated GFR (MDRD) 49.7 ml/min Glucose 96 (60-110) mg/dL Calcium 8.9 (8.8-10.8) mg/dL Total Bilirubin 0.4 (0.1-1.5) mg/dL AST 21 (5-40) IU/L ALT 17 (8-54) IU/L Alkaline Phosphatase 105 (40-150) Total Protein 6.6 (6.0-8.0) g/dL Albumin 3.7 (3.4-4.8) g/dL Globulin 2.9 (2.0-3.5) g/dL Albumin/Globulin Ratio 1.3 (1.3-2.8) Med Orders - Current: Current Medications Alprazolam (Xanax) 0.5 mg PO Q8H PRN PRN Reason: Anxiety Last Admin: 07/21/17 15:52 Dose: 0.5 mg Ciprofloxacin (Ciprofloxacin Hcl) 500 mg PO BID [place] Last Admin: 07/22/17 08:37 Dose: 500 mg Cyclobenzaprine HCl (Flexeril) 10 mg PO BEDTIME [facility] Last Admin: 07/21/17 21:42 Dose: 10 mg Digoxin (Lanoxin) 125 mcg PO DAILY [facility] Diltiazem HCl (Diltiazem) 20 mg IVPUSH Q6H PRN PRN Reason: Tachycardia Last Admin: 07/18/17 10:33 Dose: 20 mg Duloxetine HCl (Cymbalta) 60 mg PO DAILY [facility] Last Admin: 07/22/17 08:38 Dose: 60 mg Ferrous Sulfate (Ferrous Sulfate) 325 mg PO DAILY@1200 [facility] Last Admin: 07/22/17 12:01 Dose: 325 mg Furosemide (Lasix) 60 mg PO DAILY [facility] Last Admin: 07/22/17 08:38 Dose: 60 mg Gabapentin (Neurontin) 400 mg PO DAILY [facility] Last Admin: 07/22/17 08:36 Dose: 400 mg Lisinopril (Prinivil) 2.5 mg PO BEDTIME [facility] Methadone HCl (Methadone) 10 mg PO BEDTIME [facility] Last Admin: 07/21/17 21:42 Dose: 10 mg Methadone HCl (Methadone) 20 mg PO DAILY [facility] Last Admin: 07/22/17 08:37 Dose: 20 mg Metoprolol Succinate (Toprol Xl) 50 mg PO DAILY [facility] Last Admin: 07/22/17 08:38 Dose: 50 mg Omeprazole (Omeprazole) 40 mg PO ACBREAKFAST [facility] Last Admin: 07/22/17 06:30 Dose: 40 mg Ondansetron HCl (Zofran Odt) 8 mg PO TID PRN PRN Reason: Nausea/Vomiting Last Admin: 07/19/17 18:26 Dose: 8 mg Amlodipine Bes/Olmesartan Med [Ayush 5-40 Mg Tablet] 6 Mg 1 each PO BIDPC PRN PRN Reason: Hypertension Polyethylene Glycol (Miralax) 17 gm PO DAILY [facility] Last Admin: 07/22/17 08:38 Dose: 17 gm Sodium Chloride (Saline Flush) 10 ml FLUSH ASDIRECTED PRN PRN Reason: Keep Vein Open Last Admin: 07/17/17 19:42 Dose: 10 ml Sodium Chloride (Saline Flush) 2.5 ml FLUSH ASDIRECTED PRN PRN Reason: Keep Vein Open Last Admin: 07/17/17 19:40 Dose: 2.5 ml Temazepam (Restoril) 15 mg PO BEDTIME PRN PRN Reason: Insomnia Last Admin: 07/20/17 20:49 Dose: 15 mg Tramadol HCl (Ultram) 50 mg PO Q8H [facility] Last Admin: 07/22/17 13:48 Dose: 50 mg Warfarin Sodium (Coumadin) 4 mg PO DAILY@1400 [facility] Last Admin: 07/22/17 13:48 Dose: 4 mg Zaleplon (Sonata) 10 mg PO ASDIRECTED [facility] Discontinued Medications Carvedilol (Coreg) 6.25 mg PO BID [facility] Last Admin: 07/18/17 20:56 Dose: 6.25 mg Digoxin (Lanoxin) 250 mcg PO DAILY [facility] Last Admin: 07/21/17 09:21 Dose: Not Given Digoxin (Lanoxin) 250 mcg IVPUSH DAILY [facility] Stop: 07/22/17 09:01 Last Admin: 07/21/17 11:17 Dose: 250 mcg Digoxin (Lanoxin) 250 mcg PO DAILY [facility] Last Admin: 07/22/17 08:37 Dose: 250 mcg Diltiazem HCl (Diltiazem) 20 mg IVPUSH ONETIME ONE Stop: 07/17/17 19:52 Last Admin: 07/17/17 19:57 Dose: 20 mg Ferrous Sulfate (Ferrous Sulfate) 325 mg PO DAILY [facility] Furosemide (Lasix) 20 mg IVPUSH NOW ONE Stop: 07/17/17 20:50 Last Admin: 07/17/17 21:00 Dose: 20 mg Furosemide (Lasix) 40 mg PO ASDIRECTED PRN PRN Reason: Edema Furosemide (Lasix) 40 mg IVPUSH NOW ONE Stop: 07/18/17 15:48 Last Admin: 07/18/17 16:30 Dose: 40 mg Furosemide (Lasix) 40 mg IVPUSH NOW ONE Stop: 07/19/17 08:12 Last Admin: 07/19/17 08:48 Dose: 40 mg Furosemide (Lasix) 40 mg IVPUSH ONETIME ONE Stop: 07/19/17 20:01 Last Admin: 07/19/17 19:46 Dose: 40 mg Furosemide (Lasix) 40 mg IVPUSH NOW ONE Stop: 07/20/17 09:39 Last Admin: 07/20/17 10:11 Dose: 40 mg Lisinopril (Prinivil) 2.5 mg PO DAILY [facility] Lisinopril (Prinivil) 2.5 mg PO NOW STA Stop: 07/20/17 09:41 Last Admin: 07/20/17 10:13 Dose: 2.5 mg Lisinopril (Prinivil) 2.5 mg PO DAILY [facility] Lisinopril (Prinivil) 2.5 mg PO DAILY [facility] Last Admin: 07/22/17 15:05 Dose: 2.5 mg Methadone HCl (Methadone) 10 mg PO BID [facility] Last Admin: 07/18/17 08:13 Dose: 10 mg Methadone HCl (Methadone) 10 mg PO ONETIME ONE Stop: 07/18/17 10:16 Last Admin: 07/18/17 10:21 Dose: 10 mg Metoprolol Succinate (Toprol Xl) 75 mg PO DAILY [facility] Last Admin: 07/21/17 09:12 Dose: 75 mg [facility]) [facility] Last Admin: 07/21/17 09:11 Dose: Not Given Non-Formulary Medication (Iron,Carbonyl/Vit C/Vit B12/Fa [Iron 100 Plus Tablet] ) 65 mg PO DAILY [facility] Last Admin: 07/18/17 14:48 Dose: Not Given Warfarin Sodium (Coumadin Ask) 1 each PO ONETIME ONE Stop: 07/19/17 16:10 Last Admin: 07/19/17 16:43 Dose: Not Given Warfarin Sodium (Coumadin) 4 mg PO DAILY@1400 [facility] - Exam General: Alert, Oriented HEENT: Pupils Equal, Pupils Reactive Neck: Supple, JVD Lungs: Rales Cardiovascular: Irregular Rhythm GI/Abdominal Exam: Normal Bowel Sounds (Female) Exam: Normal External Exam Back Exam: Normal Inspection Extremities: Normal Inspection EKG INTERPRETATION Rhythm: A-Fib - Problem List Review Problem List Initiated/Reviewed/Updated: Yes - My Orders Last 24 Hours: My Active Orders 07/22/17 09:00 Metoprolol Succinate [Toprol XL] 50 mg PO DAILY 07/23/17 09:00 Digoxin [Lanoxin] 125 mcg PO DAILY 07/23/17 21:00 Lisinopril [Prinivil] 2.5 mg PO BEDTIME - Plan Plan:: 66F AVR 2000 ?? MR unknown onset of AFib HLP decompensated HF 1. decompensated HF: prelim report for echo showed decline EF probably 30-35%, her AVR seemed to be tilting disc, normal functioning valve ring well seated. DVI 0.74, AT < 100 msec, Vamx 2.2 PG 11, will do additional view for MV. Continue lasix 60 PO daily, metoprolol XL 50 daily in AM, digoxin 125 daily. Lisinopril 2.5 daily in PM coronary angiogram but this can be set up as outpt. 2. Afib RVR, unknown onset, she already need detention ATC from AVR She could possible be discharged tomorrow if VS stable
[2017-07-22] MEDS: Cyclobenzaprine 10 MG Tab PO SCH (20:35)
[2017-07-22] MEDS: Temazepam 15 MG Cap PO PRN (23:46)
[2017-07-23] MEDS: traMADol 50 MG Tab PO SCH ×2 (06:27→14:24)
[2017-07-23] MEDS: Omeprazole 20 MG Cap.CR PO SCH (06:30)
[2017-07-23 07:40] LABS: CHLORIDE,CL 97 mmol/L (98-110); SODIUM,NA 140 mmol/L (136-146)
[2017-07-23] MEDS: Furosemide 20 MG Tab PO SCH (08:30)
[2017-07-23] MEDS: Ciprofloxacin 500 MG Tab PO SCH (08:30)
[2017-07-23] MEDS: DULoxetine 60 MG Cap PO SCH (08:30)
[2017-07-23] MEDS: Gabapentin 100 MG Cap PO SCH (08:30)
[2017-07-23] MEDS: Metoprolol Succinate 50 MG Tab.ER PO SCH (08:31)
[2017-07-23] MEDS: Methadone 10 MG Tab PO SCH (08:32)
[2017-07-23] MEDS: Polyethylene Glycol 3350 Powder 17 GM Packet PO SCH (08:33)
[2017-07-23] MEDS ORDERED: Digoxin 125 MCG Tab PO SCH (09:00)
[2017-07-23] MEDS: Ferrous Sulfate 325 MG Tab PO SCH (11:34)
[2017-07-23] MEDS: Warfarin 2 MG Tab PO SCH (13:46)
[2017-07-23] MEDS ORDERED: Warfarin 5 MG Tab PO SCH (14:38)
[2017-07-23] MEDS ORDERED: Metoprolol Succinate 50 MG Tab.ER PO ONE (14:45)
--- NOTE | 2017-07-23 15:06 | PCM.DCSUM1 ---
Discharge Summary - Hospital Course Brief History: she was admitted with atrial fibrillation and decompensated heart failure. - Discharge Data Discharge Date: 07/23/17 Discharge Disposition: Home, Self-Care 01 Condition: Fair - Discharge Diagnosis/Problem(s) (1) CHF (congestive heart failure) SNOMED Code(s): 44914572 ICD Code: I50.9 - HEART FAILURE, UNSPECIFIED Status: Acute Current Visit : Yes (2) Mechanical heart valve present SNOMED Code(s): 48075853352726, [id number], [id number], [id number], [id number] ICD Code: Z95.2 - PRESENCE OF PROSTHETIC HEART VALVE Status: Chronic Priority: High Current Visit: Yes (3) New onset a-fib SNOMED Code(s): 73781357 ICD Code: I48.91 - UNSPECIFIED ATRIAL FIBRILLATION Status: Chronic Priority: High Current Visit: Yes Problem Details: Better rate control today. - Patient Summary/Data Hospital Course: her rate was controlled using diltiazem, beta blockade and digoxin. She was started on cipro for a sinusitis , Her sinusitis symptoms have resolved at discharge. She is improved at discharge. She was noted to have a mechanical heart valve ( aortic) and her INR was monitored . Her warfarin is increased at discharge as her INR has been over 2 but less than 2.5. At discharge she is in atrial fibrillation with a heart rate of about 80 / minute. - Discharge Plan Home Medications: Home Meds Carvedilol 6.25 mg PO BID 11/28/16 [History] Cyclobenzaprine [Flexeril] 10 mg PO BEDTIME 11/28/16 [History] Furosemide [Furosemide] 40 mg PO ASDIRECTED PRN 11/28/16 [History] Gabapentin [Neurontin] 400 mg PO DAILY 11/28/16 [History] Iron,Carbonyl/Vit C/Vit B12/Fa [Iron 100 Plus Tablet] 65 mg PO DAILY 11/28/16 [ History] Omeprazole Magnesium [Prilosec Otc] 40 mg PO DAILY 11/28/16 [History] Polyethylene Glycol 3350 [MiraLAX] 17 gm PO DAILY 11/28/16 [History] Warfarin [Coumadin] 6 mg PO DAILY 11/28/16 [History] Zolpidem Tartrate [Ambien] 10 mg PO ASDIRECTED 11/28/16 [History] amLODIPine Bes/Olmesartan Med [Ayush 5-40 mg Tablet] 6 mg PO BIDPC PRN 11/28/16 [ History] traMADol [Ultram] 50 mg PO Q8H #8 tablet 01/15/17 [Rx] Methadone 20 mg PO QAM 07/17/17 [History] DULoxetine HCl [Duloxetine HCl] 60 mg PO DAILY 07/18/17 [History] Methadone 10 mg PO BEDTIME 07/18/17 [History] Referrals: [facility] [Outside] [facility] [Outside] Khris Dillard MD [Physician] - 07/27/17 11:00 am Riccardo Sanchez MD [Primary Care Provider] - 07/28/17 9:30 am - Patient Data Vitals - Most Recent: Last Vital Signs Temp 97.1 F 07/23/17 12:00 Pulse 82 07/23/17 12:00 Resp 18 07/23/17 12:00 BP 146/82 H 07/23/17 12:00 Pulse Ox 94 L 07/23/17 12:00 Weight - Most Recent: 67.8 kg I&O - Last 24 hours: Intake & Output 07/23/17 07/23/17 07/23/17 06:59 14:59 22:59 Intake Total 590 Output Total 1050 Balance -460 Lab Results - Last 24 hrs: Laboratory Results - last 24 hr 07/23/17 07/23/17 Range/Units 06:59 06:59 INR 2.04 H (0.86-1.11) Sodium 140 (136-146) mmol/L Potassium 4.0 (3.5-5.1) mmol/L Chloride 97 L (98-110) mmol/L Carbon Dioxide 34 H (21-31) mmol/L BUN 26 H (6.0-23.0) mg/dL Creatinine 0.8 (0.6-1.5) mg/dL Est Cr Clr Drug Dosing 49.69 mL/min Estimated GFR (MDRD) > 60.0 ml/min Glucose 103 (60-110) mg/dL Calcium 9.3 (8.8-10.8) mg/dL Magnesium 1.7 (1.5-2.3) mEq/L Med Orders - Current: Current Medications Alprazolam (Xanax) 0.5 mg PO Q8H PRN PRN Reason: Anxiety Last Admin: 07/21/17 15:52 Dose: 0.5 mg Ciprofloxacin (Ciprofloxacin Hcl) 500 mg PO BID [facility] Last Admin: 07/23/17 08:30 Dose: 500 mg Cyclobenzaprine HCl (Flexeril) 10 mg PO BEDTIME [facility] Last Admin: 07/22/17 20:35 Dose: 10 mg Digoxin (Lanoxin) 125 mcg PO DAILY [facility] Last Admin: 07/23/17 08:32 Dose: 125 mcg Diltiazem HCl (Diltiazem) 20 mg IVPUSH Q6H PRN PRN Reason: Tachycardia Last Admin: 07/18/17 10:33 Dose: 20 mg Duloxetine HCl (Cymbalta) 60 mg PO DAILY [facility] Last Admin: 07/23/17 08:30 Dose: 60 mg Ferrous Sulfate (Ferrous Sulfate) 325 mg PO DAILY@1200 [facility] Last Admin: 07/23/17 11:34 Dose: 325 mg Furosemide (Lasix) 60 mg PO DAILY [facility] Last Admin: 07/23/17 08:30 Dose: 60 mg Gabapentin (Neurontin) 400 mg PO DAILY [facility] Last Admin: 07/23/17 08:30 Dose: 400 mg Lisinopril (Prinivil) 2.5 mg PO BEDTIME [facility] Methadone HCl (Methadone) 10 mg PO BEDTIME [facility] Last Admin: 07/22/17 20:35 Dose: 10 mg Methadone HCl (Methadone) 20 mg PO DAILY [facility] Last Admin: 07/23/17 08:32 Dose: 20 mg Metoprolol Succinate (Toprol Xl) 50 mg PO BID [facility] Omeprazole (Omeprazole) 40 mg PO ACBREAKFAST [facility] Last Admin: 07/23/17 06:30 Dose: 40 mg Ondansetron HCl (Zofran Odt) 8 mg PO TID PRN PRN Reason: Nausea/Vomiting Last Admin: 07/19/17 18:26 Dose: 8 mg Amlodipine Bes/Olmesartan Med [Ayush 5-40 Mg Tablet] 6 Mg 1 each PO BIDPC PRN PRN Reason: Hypertension Polyethylene Glycol (Miralax) 17 gm PO DAILY [facility] Last Admin: 07/23/17 08:33 Dose: Not Given Sodium Chloride (Saline Flush) 10 ml FLUSH ASDIRECTED PRN PRN Reason: Keep Vein Open Last Admin: 07/17/17 19:42 Dose: 10 ml Sodium Chloride (Saline Flush) 2.5 ml FLUSH ASDIRECTED PRN PRN Reason: Keep Vein Open Last Admin: 07/17/17 19:40 Dose: 2.5 ml Temazepam (Restoril) 15 mg PO BEDTIME PRN PRN Reason: Insomnia Last Admin: 07/22/17 23:46 Dose: 15 mg Tramadol HCl (Ultram) 50 mg PO Q8H [facility] Last Admin: 07/23/17 14:24 Dose: 50 mg Warfarin Sodium (Coumadin) 5 mg PO DAILY@1400 [facility] Zaleplon (Sonata) 10 mg PO ASDIRECTED [facility] Discontinued Medications Carvedilol (Coreg) 6.25 mg PO BID [facility] Last Admin: 07/18/17 20:56 Dose: 6.25 mg Digoxin (Lanoxin) 250 mcg PO DAILY [facility] Last Admin: 07/21/17 09:21 Dose: Not Given Digoxin (Lanoxin) 250 mcg IVPUSH DAILY [facility] Stop: 07/22/17 09:01 Last Admin: 07/21/17 11:17 Dose: 250 mcg Digoxin (Lanoxin) 250 mcg PO DAILY [facility] Last Admin: 07/22/17 08:37 Dose: 250 mcg Diltiazem HCl (Diltiazem) 20 mg IVPUSH ONETIME ONE Stop: 07/17/17 19:52 Last Admin: 07/17/17 19:57 Dose: 20 mg Ferrous Sulfate (Ferrous Sulfate) 325 mg PO DAILY [facility] Furosemide (Lasix) 20 mg IVPUSH NOW ONE Stop: 07/17/17 20:50 Last Admin: 07/17/17 21:00 Dose: 20 mg Furosemide (Lasix) 40 mg PO ASDIRECTED PRN PRN Reason: Edema Furosemide (Lasix) 40 mg IVPUSH NOW ONE Stop: 07/18/17 15:48 Last Admin: 07/18/17 16:30 Dose: 40 mg Furosemide (Lasix) 40 mg IVPUSH NOW ONE Stop: 07/19/17 08:12 Last Admin: 07/19/17 08:48 Dose: 40 mg Furosemide (Lasix) 40 mg IVPUSH ONETIME ONE Stop: 07/19/17 20:01 Last Admin: 07/19/17 19:46 Dose: 40 mg Furosemide (Lasix) 40 mg IVPUSH NOW ONE Stop: 07/20/17 09:39 Last Admin: 07/20/17 10:11 Dose: 40 mg Lisinopril (Prinivil) 2.5 mg PO DAILY [facility] Lisinopril (Prinivil) 2.5 mg PO NOW STA Stop: 07/20/17 09:41 Last Admin: 07/20/17 10:13 Dose: 2.5 mg Lisinopril (Prinivil) 2.5 mg PO DAILY [facility] Lisinopril (Prinivil) 2.5 mg PO DAILY [facility] Last Admin: 07/22/17 15:05 Dose: 2.5 mg Methadone HCl (Methadone) 10 mg PO BID [facility] Last Admin: 07/18/17 08:13 Dose: 10 mg Methadone HCl (Methadone) 10 mg PO ONETIME ONE Stop: 07/18/17 10:16 Last Admin: 07/18/17 10:21 Dose: 10 mg Metoprolol Succinate (Toprol Xl) 75 mg PO DAILY [facility] Last Admin: 07/21/17 09:12 Dose: 75 mg Metoprolol Succinate (Toprol Xl) 50 mg PO DAILY [facility] Last Admin: 07/23/17 08:31 Dose: 50 mg Metoprolol Succinate (Toprol Xl) 50 mg PO ONETIME ONE Stop: 07/23/17 14:46 [facility] Last Admin: 07/21/17 09:11 Dose: Not Given Non-Formulary Medication (Iron,Carbonyl/Vit C/Vit B12/Fa [Iron 100 Plus Tablet] ) 65 mg PO DAILY [facility] Last Admin: 07/18/17 14:48 Dose: Not Given Warfarin Sodium (Coumadin Ask) 1 each PO ONETIME ONE Stop: 07/19/17 16:10 Last Admin: 07/19/17 16:43 Dose: Not Given Warfarin Sodium (Coumadin) 4 mg PO DAILY@1400 [facility] Warfarin Sodium (Coumadin) 4 mg PO DAILY@1400 [facility] Last Admin: 07/23/17 13:46 Dose: 4 mg *Q Meaningful Use (DIS) - VTE *Q VTE Criteria *Q: - Stroke *Q Stroke Criteria *Q: - AMI *Q AMI Criteria *Q:
[2017-07-23 16:14] VITALS: BP 101/63
[2017-07-23] MEDS ORDERED: Lisinopril 5 MG Tab PO SCH (21:00)
[2017-07-23] MEDS ORDERED: Metoprolol Succinate 50 MG Tab.ER PO SCH (21:00)
== END 2017-07-23 16:40 | disposition home or self-care (01) | DRG 292 ==
LOC: MW.ED 19:14 → MW.MS 20:51 → OBSVTOIN 07-20 14:44 → MW.MS 07-20 16:36
PROVIDERS: ADMIT Internal Medicine; ATTEND Internal Medicine
DX: I50.20 Unspecified systolic (congestive) heart failure (principal); N39.0 Urinary tract infection, site not specified; I48.91 Unspecified atrial fibrillation; I25.10 Atherosclerotic heart disease of native coronary artery without angina pectoris; I10 Essential (primary) hypertension; F41.8 Other specified anxiety disorders; R06.09 Other forms of dyspnea; F17.200 Nicotine dependence, unspecified, uncomplicated; Z86.73 Personal history of transient ischemic attack (TIA), and cerebral infarction without residual deficits; Z85.3 Personal history of malignant neoplasm of breast; Z95.2 Presence of prosthetic heart valve; Z95.1 Presence of aortocoronary bypass graft; Z79.899 Other long term (current) drug therapy; Z79.01 Long term (current) use of anticoagulants
CPT/HCPCS: 36415 ×4; 71010; 80048; 80053 ×3; 80061; 80305; 81001; 83036; 83605; 83735; 83880; 84484; 85025 ×4; 85610 ×4; 93005; 93306; 96374; 96375; 99285; A9270 ×46; J1940 ×5; J3490 ×3; 71020; 71020-26; 96376; 99283; G0378; J1160

== ENCOUNTER 2017-08-22 10:11 | Inpatient (IN) | payer MEDICARE, OTHER ==
[2017-08-22] MEDS ORDERED: Albuterol/Ipratropium 3.0-0.5 MG/3 ML Neb Soln NEB ONE (10:12)
[2017-08-22] MEDS ORDERED: methylPREDNISolone Sodium Succinate 125 MG/2 ML SDV IVPUSH ONE (10:12)
--- NOTE | 2017-08-22 10:14 | EDM.PDOC ---
ED HPI GENERAL MEDICAL PROBLEM - General Stated Complaint: AMBULANCE Time Seen by Provider: 08/22/17 10:14 Source of Information: Reports: Patient, EMS - History of Present Illness INITIAL COMMENTS - FREE TEXT/NARRATIVE: HISTORY AND PHYSICAL: History of present illness: []Patient with known CHF and recent history with cardiology, she has had several admits cardiology is recently stop digoxin as they are considering a balloon angioplasty, apparently on a previous admission she was found to have some runs of atrial fibrillation on telemetry. Today she presents by ambulance with shortness of breath she is in no acute distress but does have orthopnea No fever nausea vomiting chills sweats no chest pain Review of systems: As per history of present illness and below otherwise all systems reviewed and negative. Past medical history: As per history of present illness and as reviewed below otherwise noncontributory. Surgical history: As per history of present illness and as reviewed below otherwise noncontributory. Social history: No reported history of drug or alcohol abuse. Family history: As per history of present illness and as reviewed below otherwise noncontributory. Physical exam: HEENT: Atraumatic, normocephalic, pupils reactive, negative for conjunctival pallor or scleral icterus, mucous membranes moist, throat clear, neck supple, nontender, trachea midline. Lungs: Clear to auscultation, breath sounds equal bilaterally, chest nontender. Heart: S1S2, regular, negative for clicks, rubs, or JVD. Abdomen: Soft, nondistended, nontender. Negative for masses or hepatosplenomegaly. Negative for costovertebral tenderness. Pelvis: Stable nontender. Genitourinary: Deferred. Rectal: Deferred. Extremities: Atraumatic, negative for cords or calf pain. Neurovascular unremarkable. Neuro: Awake, alert, oriented. Cranial nerves II through XII unremarkable. Cerebellum unremarkable. Motor and sensory unremarkable throughout. Exam nonfocal. Diagnostics: []Lab as below EKG Chest 1 view Therapeutics: []Normal saline 1 25 mL initially started this is changed to TKO Lasix 60 mg IV total Impression: []CHF exacerbation Supratherapeutic INR Chronic history of baseline Definitive disposition and diagnosis as appropriate pending reevaluation and review of above. - Related Data Allergies Allergy/AdvReac Type Severity Reaction Status Date / Time No Known Allergies Allergy Verified 08/22/17 10:14 Home Meds: Home Meds Cyclobenzaprine [Flexeril] 10 mg PO BEDTIME 11/28/16 [History] Furosemide 40 mg PO ASDIRECTED PRN 11/28/16 [History] Iron,Carbonyl/Vit C/Vit B12/Fa [Iron 100 Plus Tablet] 65 mg PO DAILY 11/28/16 [ History] Omeprazole Magnesium [Prilosec Otc] 40 mg PO DAILY 11/28/16 [History] Polyethylene Glycol 3350 [MiraLAX] 17 gm PO DAILY 11/28/16 [History] Warfarin [Coumadin] 6 mg PO DAILY 11/28/16 [History] Methadone 20 mg PO QAM 07/17/17 [History] DULoxetine HCl [Duloxetine HCl] 60 mg PO DAILY 07/18/17 [History] Methadone 10 mg PO BEDTIME 07/18/17 [History] Digoxin [Lanoxin] 125 mcg PO DAILY #30 tablet 07/23/17 [Rx] Lisinopril [Prinivil] 2.5 mg PO BEDTIME #30 tablet 07/23/17 [Rx] Methadone 10 mg PO BEDTIME #30 tablet 07/23/17 [Rx] Methadone 20 mg PO DAILY #30 tablet 07/23/17 [Rx] Metoprolol Succinate [Toprol XL] 50 mg PO BID #60 tab.er 07/23/17 [Rx] traMADol [Ultram] 50 mg PO Q8H #90 tablet 07/23/17 [Rx] Past Medical History HEENT History: Reports: Other (See Below) Other HEENT History: no teeth or dentures Cardiovascular History: Reports: Hypertension Respiratory History: Reports: COPD Gastrointestinal History: Reports: Other (See Below) Other Gastrointestinal History: acid reflux Genitourinary History: Reports: None 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: Musculoskeletal History: Reports: Arthritis, Back Pain, Chronic, Other (See Below) Other Musculoskeletal History: scoliosis, bulging discs, carpal tunnel, restless leg Neurological History: Reports: TIA Psychiatric History: Reports: Anxiety, Depression Endocrine/Metabolic History: Reports: None Hematologic History: Reports: None Immunologic History: Reports: None Oncologic (Cancer) History: Reports: Breast Other Oncologic History: right breast ca Dermatologic History: Reports: None - Past Surgical History Cardiovascular Surgical History: Reports: Valve Replacement, Other (See Below) GI Surgical History: Reports: Bariatric Procedure, Cholecystectomy, Other (See Below) Female Surgical History: Reports: Tubal Ligation Musculoskeletal Surgical History: Reports: Carpal Tunnel, Other (See Below) Oncologic Surgical History: Reports: Biopsy of Breast, Lumpectomy Social & Family History - Family History Family Medical History: Noncontributory - Tobacco Use Smoking Status *Q: Current Every Day Smoker Years of Tobacco use: 50 Packs/Tins Daily: 0.5 Second Hand Smoke Exposure: Yes - Caffeine Use Caffeine Use: Reports: None Caffeine Use Comment: 3-4 cups a day - Recreational Drug Use Recreational Drug Use: No ED ROS GENERAL - Review of Systems Review Of Systems: ROS reveals no pertinent complaints other than HPI. ED EXAM, GENERAL - Physical Exam Exam: See Below Course - Vital Signs Last Recorded V/S: Last Vital Signs Temp 36.6 C 08/22/17 10:14 Pulse 104 H 08/22/17 10:14 Resp 20 08/22/17 10:14 BP 140/86 08/22/17 10:14 Pulse Ox 95 08/22/17 10:14 - Orders/Labs/Meds Orders: Active Orders 24 hr Category Date Time Status EKG Documentation Completion [RC] STAT Care 08/22/17 10:13 Active RT Aerosol Therapy [RC] ASDIRECTED Care 08/22/17 10:13 Active UA W/MICROSCOPIC [URIN] Stat Lab 08/22/17 10:13 Uncollected Sodium Chloride 0.9% [Normal Saline] 1,000 ml Med 08/22/17 10:15 Active IV STAT Medication Orders Sodium Chloride (Normal Saline) 1,000 mls @ 125 mls/hr IV STAT [place] Last Admin: 08/22/17 11:16 Dose: 125 mls/hr Labs: Laboratory Tests 08/22/17 08/22/17 08/22/17 Range/Units 10:20 10:20 10:20 WBC 9.38 (4.0-11.0) K/uL RBC 4.61 (4.30-5.90) M/uL Hgb 13.3 (12.0-16.0) g/dL Hct 42.5 (36.0-46.0) % MCV 92.2 (80.0-98.0) fL MCH 28.9 (27.0-32.0) pg MCHC 31.3 (31.0-37.0) g/dL RDW Std Deviation 50.8 (28.0-62.0) fl RDW Coeff of Shaun 15 (11.0-15.0) % Plt Count 215 (150-400) K/uL MPV 9.70 (7.40-12.00) fL Neut % (Auto) 62.0 (48.0-80.0) % Lymph % (Auto) 29.7 (16.0-40.0) % Henry % (Auto) 4.9 (0.0-15.0) % Eos % (Auto) 3.0 (0.0-7.0) % Baso % (Auto) 0.4 (0.0-1.5) % Neut # (Auto) 5.8 H (1.4-5.7) K/uL Lymph # (Auto) 2.8 H (0.6-2.4) K/uL Henry # (Auto) 0.5 (0.0-0.8) K/uL Eos # (Auto) 0.3 (0.0-0.7) K/uL Baso # (Auto) 0.0 (0.0-0.1) K/uL Nucleated RBC % 0.0 /100WBC Nucleated RBCs # 0 K/uL INR 4.59 H (0.86-1.11) Sodium 142 (136-146) mmol/L Potassium 4.0 (3.5-5.1) mmol/L Chloride 107 (98-110) mmol/L Carbon Dioxide 24 (21-31) mmol/L BUN 28 H (6.0-23.0) mg/dL Creatinine 1.0 (0.6-1.5) mg/dL Est Cr Clr Drug Dosing 39.21 mL/min Estimated GFR (MDRD) 55.3 ml/min Glucose 93 (60-110) mg/dL Calcium 9.0 (8.8-10.8) mg/dL Total Bilirubin 0.4 (0.1-1.5) mg/dL AST 19 (5-40) IU/L ALT 17 (8-54) IU/L Alkaline Phosphatase 85 (40-150) Troponin I (0.0-0.29) NG/ML B-Natriuretic Peptide (<100) PG/ML Total Protein 6.9 (6.0-8.0) g/dL Albumin 3.8 (3.4-4.8) g/dL Globulin 3.1 (2.0-3.5) g/dL Albumin/Globulin Ratio 1.2 L (1.3-2.8) 08/22/17 08/22/17 Range/Units 10:20 10:20 WBC (4.0-11.0) K/uL RBC (4.30-5.90) M/uL Hgb (12.0-16.0) g/dL Hct (36.0-46.0) % MCV (80.0-98.0) fL MCH (27.0-32.0) pg MCHC (31.0-37.0) g/dL RDW Std Deviation (28.0-62.0) fl RDW Coeff of Shaun (11.0-15.0) % Plt Count (150-400) K/uL MPV (7.40-12.00) fL Neut % (Auto) (48.0-80.0) % Lymph % (Auto) (16.0-40.0) % Henry % (Auto) (0.0-15.0) % Eos % (Auto) (0.0-7.0) % Baso % (Auto) (0.0-1.5) % Neut # (Auto) (1.4-5.7) K/uL Lymph # (Auto) (0.6-2.4) K/uL Henry # (Auto) (0.0-0.8) K/uL Eos # (Auto) (0.0-0.7) K/uL Baso # (Auto) (0.0-0.1) K/uL Nucleated RBC % /100WBC Nucleated RBCs # K/uL INR (0.86-1.11) Sodium (136-146) mmol/L Potassium (3.5-5.1) mmol/L Chloride (98-110) mmol/L Carbon Dioxide (21-31) mmol/L BUN (6.0-23.0) mg/dL Creatinine (0.6-1.5) mg/dL Est Cr Clr Drug Dosing mL/min Estimated GFR (MDRD) ml/min Glucose (60-110) mg/dL Calcium (8.8-10.8) mg/dL Total Bilirubin (0.1-1.5) mg/dL AST (5-40) IU/L ALT (8-54) IU/L Alkaline Phosphatase (40-150) Troponin I < 0.10 (0.0-0.29) NG/ML B-Natriuretic Peptide 739 H (<100) PG/ML Total Protein (6.0-8.0) g/dL Albumin (3.4-4.8) g/dL Globulin (2.0-3.5) g/dL Albumin/Globulin Ratio (1.3-2.8) Meds: Medications Generic Name Dose Route Start Last Admin Trade Name Freq PRN Reason Stop Dose Admin Sodium Chloride 1,000 mls @ 125 mls/hr 08/22/17 10:15 08/22/17 11:16 Normal Saline IV 125 mls/hr STAT [place] Administration Discontinued Medications Generic Name Dose Route Start Last Admin Trade Name Freq PRN Reason Stop Dose Admin Albuterol/Ipratropium 3 ml 08/22/17 10:12 08/22/17 10:43 Duoneb 3.0-0.5 Mg/3 Ml NEB 08/22/17 10:13 3 ml ONETIME ONE Administration Aspirin 324 mg 08/22/17 10:50 08/22/17 11:08 Aspirin PO 08/22/17 10:51 324 mg ONETIME ONE Administration Furosemide 20 mg 08/22/17 11:28 08/22/17 11:41 Lasix IVPUSH 08/22/17 11:29 20 mg NOW ONE Administration Furosemide 40 mg 08/22/17 11:40 08/22/17 11:50 Lasix IVPUSH 08/22/17 11:41 40 mg NOW ONE Administration Methylprednisolone Sodium Succinate 125 mg 08/22/17 10:12 08/22/17 11:16 Solu-Medrol IVPUSH 08/22/17 10:13 125 mg ONETIME ONE Administration Departure - Departure Time of Disposition: 11:57 Disposition: Admitted As Inpatient 66 Condition: Poor Clinical Impression: CHF exacerbation - Discharge Information Referrals: Riccardo Sanchez MD [Primary Care Provider] - - My Orders Last 24 Hours: My Active Orders 08/22/17 10:13 EKG Documentation Completion [RC] STAT RT Aerosol Therapy [RC] ASDIRECTED UA W/MICROSCOPIC [URIN] Stat 08/22/17 10:15 Sodium Chloride 0.9% [Normal Saline] 1,000 ml IV STAT - Assessment/Plan Last 24 Hours: My Active Orders 08/22/17 10:13 EKG Documentation Completion [RC] STAT RT Aerosol Therapy [RC] ASDIRECTED UA W/MICROSCOPIC [URIN] Stat 08/22/17 10:15 Sodium Chloride 0.9% [Normal Saline] 1,000 ml IV STAT
[2017-08-22] MEDS ORDERED: Sodium Chloride 0.9% 1,000 ML IV SCH (10:15)
[2017-08-22] MEDS ORDERED: Aspirin 81 MG Tab.Chew PO ONE (10:50)
--- NOTE | 2017-08-22 11:01 | CR ---
EXAMINATION: Portable chest radiograph. HISTORY: Shortness breath. FINDINGS: The trachea is midline. Heart is mildly enlarged. Median sternotomy wires are noted with evidence of valvular replacement. There is a prominence of the central pulmonary vasculature and increased inters titial markings. No focal consolidation or pleural effusion. No pneumothorax. Aortic calcifications n oted. Osseous structures appear osteopenic. IMPRESSION: 1. Cardiomegaly, increased interstitial prominence and pulmonary vasculature, likely representing exa cerbation of CHF.
[2017-08-22] MEDS ORDERED: Furosemide 40 MG/4 ML VIAL IVPUSH ONE ×2 (11:28→11:40)
[2017-08-22] MEDS ORDERED: Morphine 2 MG/ML Syringe IVPUSH ONE (12:43)
--- NOTE | 2017-08-22 12:47 | PCM.HP ---
<Consuelo Linares M - Last Filed: 08/22/17 15:01> H&P History of Present Illness - General Date of Service: 08/22/17 Admit Problem/Dx: CHF exacerbation Source of Information: Patient History Limitations: Reports: No Limitations - History of Present Illness Initial Comments - Free Text/Narative: This 67 year old female with pmh of aortic valve replacement on chronic anticoagulation, hx mitral valve regurgitation, HTN, CHF, and chronic pain presented to the ED this morning with acute onset of dyspnea. She reports at 0630 this morning, she woke up with SOB, she took a shower hoping it would help and it made it worse and called EMS to bring her to the hospital. She reports having orthopnea as well, no edema to extremities or abdomen. She reports being complaints with medications, diet. She reports having some chest pain, L anterior chest, some pain reproducible with palpation. She reports this pain is worse with activity and has been around for awhile. She has limited activity ability due to dyspnea. She reports getting very SOB with sweeping the floor and needing to rest and the stairs cause her a lot so SOB. She has stairs to get to her bedroom and living space. She reports she was scheduled to have nuclear stress test and possible angiogram in [place] tomorrow. She has been seeing Dr. 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 At that time ECHO reports EF of 35-40%. She reports recently having Digoxin stopped in the clinic by Dr Dillard. She has stopped smoking, does not drink or use recreational drug use. In the ED CBC WNL, INR 4.59, BUN 28. Cr 1.8, CXR revealed cardiomegaly with increased interstitial prominence and pulmonary vasculature, representing exacerbation of CHF. BNP 739. She was give Lasix 60 mg IV. EKG revealed ST rates 100s. She will be admitted for acute CHF exacerbation. Dr Dillard to be consulted upon admission. - Related Data Allergies/Adverse Reactions: Allergies Allergy/AdvReac Type Severity Reaction Status Date / Time No Known Allergies Allergy Verified 08/22/17 10:14 Home Medications: Home Meds Cyclobenzaprine [Flexeril] 10 mg PO BEDTIME 11/28/16 [History] Warfarin [Coumadin] 6 mg PO BEDTIME 11/28/16 [History] DULoxetine HCl [Duloxetine HCl] 60 mg PO BEDTIME 07/18/17 [History] Methadone 10 mg PO TID 07/18/17 [History] Metoprolol Succinate [Toprol XL] 50 mg PO BID #60 tab.er 07/23/17 [Rx] traMADol [Ultram] 50 mg PO Q8H #90 tablet 07/23/17 [Rx] Lisinopril [Prinivil] 5 mg PO BEDTIME 08/22/17 [History] Polyethylene Glycol 3350 [MiraLAX] 1 package PO DAILY 08/22/17 [History] atorvaSTATin [Lipitor] 1 tab PO DAILY 08/22/17 [History] Past Medical History HEENT History: Reports: Other (See Below) Other HEENT History: no teeth or dentures Cardiovascular History: Reports: Afib, Heart Failure, Heart Valve Replacement ( aortic valve, mechanical), Hypertension Respiratory History: Reports: COPD Gastrointestinal History: Reports: GERD Genitourinary History: Reports: None [employer] History: Reports: Musculoskeletal History: Reports: Arthritis, Back Pain, Chronic, Other (See Below) Other Musculoskeletal History: scoliosis, bulging discs, carpal tunnel, restless leg Neurological History: Reports: TIA Psychiatric History: Reports: Anxiety, Depression Endocrine/Metabolic History: Reports: None. Denies: Diabetes, Type II, Hypothyroidism Hematologic History: Reports: Anticoagulation Therapy Immunologic History: Reports: None Oncologic (Cancer) History: Reports: Breast Other Oncologic History: right breast ca Dermatologic History: Reports: None - Past Surgical History Cardiovascular Surgical History: Reports: Valve Replacement, Other (See Below) GI Surgical History: Reports: Bariatric Procedure, Cholecystectomy, Other (See Below) Female Surgical History: Reports: Tubal Ligation Musculoskeletal Surgical History: Reports: Carpal Tunnel, Other (See Below) Oncologic Surgical History: Reports: Biopsy of Breast, Lumpectomy Social & Family History - Family History Family Medical History: Noncontributory - Tobacco Use Smoking Status *Q: Current Every Day Smoker Years of Tobacco use: 50 Packs/Tins Daily: 0.5 Used Tobacco, but Quit: Yes Month Tobacco Last Used: July Second Hand Smoke Exposure: Yes - Caffeine Use Caffeine Use: Reports: None Caffeine Use Comment: 3-4 cups a day - Recreational Drug Use Recreational Drug Use: No - Living Situation & Occupation Living situation: Reports: , with Family Occupation: Retired H&P Review of Systems - Review of Systems: Review Of Systems: See Below General: Denies: Fever, Chills, Malaise, Weakness HEENT: Reports: No Symptoms. Denies: Headaches, Sinus Congestion, Sore Throat Pulmonary: Reports: Shortness of Breath. Denies: Pleuritic Chest Pain, Cough, Sputum Cardiovascular: Reports: Chest Pain, Dyspnea on Exertion, Orthopnea. Denies: Palpitations, Edema Gastrointestinal: Reports: No Symptoms. Denies: Black Stool, Bloody Stool, Decreased Appetite, Nausea, Vomiting Genitourinary: Reports: No Symptoms. Denies: Dysuria, Frequency, Burning, Pain Musculoskeletal: Reports: Back Pain (chronic) Psychiatric: Reports: No Symptoms. Denies: Confusion Hematologic/Lymphatic: Reports: No Symptoms Immunologic: Reports: No Symptoms Exam - Exam Exam: See Below - Vital Signs Vital Signs: Last Vital Signs Temp 97.9 F 08/22/17 10:14 Pulse 104 H 08/22/17 10:14 Resp 20 08/22/17 10:14 BP 140/86 08/22/17 10:14 Pulse Ox 95 08/22/17 10:14 Weight: 65.771 kg - Exam Quality Assessment: No: Supplemental Oxygen General: Alert, Oriented, Cooperative HEENT: Conjunctiva Clear, Hearing Intact, Mucosa Moist & [place], Nares Patent, Posterior Pharynx Clear Neck: Supple, Trachea Midline. No: Lymphadenopathy, JVD Lungs: Normal Respiratory Effort, Crackles (bibasilar) Cardiovascular: Regular Rate, Regular Rhythm, Normal S1, Normal S2, Other ( mechanical click) GI/Abdominal Exam: Normal Bowel Sounds, Soft, Non-Tender, No Organomegaly, No Distention, No Abnormal Bruit, No Mass, Pelvis Stable Extremities: Normal Inspection, Normal Range of Motion, Non-Tender, No Pedal Edema, Normal Capillary Refill Neuro Extensive - Mental Status: Alert, Oriented x3, Normal Mood/Affect, Normal Cognition Neuro Extensive - Motor, Sensory, Reflexes: CN II-XII Intact, Normal Gait, Normal Reflexes Psychiatric: Alert, Normal Affect, Normal Mood - Patient Data Result Diagrams: 08/22/17 10:20 08/22/17 10:20 *Q Meaningful Use (ADM) - VTE *Q VTE Criteria *Q: - Stroke *Q Stroke Criteria *Q: - AMI *Q AMI Criteria *Q: - Problem List (1) Dyspnea SNOMED Code(s): 332307482 ICD Code: R06.00 - DYSPNEA, UNSPECIFIED Status: Acute Priority: High Current Visit: No QualifierTitle: Dyspnea type: dyspnea on exertion Qualified Code(s): R06.09 - Other forms of dyspnea (2) Combined congestive systolic and diastolic heart failure SNOMED Code(s): 44002039 ICD Code: I50.40 - UNSP COMBINED SYSTOLIC AND DIASTOLIC (CONGESTIVE) HRT FAIL Status: Chronic Current Visit: Yes QualifierTitle: Congestive heart failure chronicity: acute on chronic Qualified Code(s): I50.43 - Acute on chronic combined systolic (congestive) and diastolic (congestive) heart failure (3) Chest pain SNOMED Code(s): 20455946 ICD Code: R07.9 - CHEST PAIN, UNSPECIFIED Status: Acute Current Visit: Yes (4) Afib SNOMED Code(s): 75645167 ICD Code: I48.91 - UNSPECIFIED ATRIAL FIBRILLATION Status: Chronic Current Visit: Yes QualifierTitle: Atrial fibrillation type: paroxysmal Qualified Code(s): I48.0 - Paroxysmal atrial fibrillation (5) Cardiomyopathy SNOMED Code(s): 12128993 ICD Code: I42.9 - CARDIOMYOPATHY, UNSPECIFIED Status: Chronic Current Visit: Yes (6) Hx of aortic valve replacement SNOMED Code(s): 3800509530608, 8055672661902 ICD Code: Z95.2 - PRESENCE OF PROSTHETIC HEART VALVE Status: Chronic Current Visit: Yes (7) Chronic pain syndrome SNOMED Code(s): 376552234 ICD Code: G89.4 - CHRONIC PAIN SYNDROME Status: Chronic Current Visit: No (8) Anticoagulated on Coumadin SNOMED Code(s): 08512851 ICD Code: Z51.81 - ENCOUNTER FOR THERAPEUTIC DRUG LEVEL MONITORING; Z79.01 - ASSISTED (CURRENT) USE OF ANTICOAGULANTS Status: Chronic Priority: Medium Current Visit: No Problem List Initiated/Reviewed/Updated: Yes Orders Last 24hrs: Medication Orders Sodium Chloride (Normal Saline) 1,000 mls @ 125 mls/hr IV STAT [place] Last Admin: 08/22/17 11:16 Dose: 125 mls/hr Assessment/Plan Comment:: This 67 year old female admitted with acute on chronic systolic and diastolic HF and dyspnea. 1. Acute on chronic CHF: Combined systolic and diastolic. Will continue Diuresis with Lasix 40 mg IV BID. Consult Dr. Dillard. DAILY weights and STRICT I/O. Low Na diet with 2 L FR. Continue Lisinopril 5 mg daily and Metoprolol 50 mg BID. having some chest pain, will trend troponins and monitor on telemetry. First troponin negative in ED. Last Echo 1 month ago. 2. Hx aortic valve replacement: Hold Coumadin today due to INR 4.5. Check in am and pharmacy consulted for dosing. Typically takes 6 mg daily and does home monitoring for dose changes. 3. Chronic pain: Continue Methadone and Ultram PRN. VTE prophylaxis: On Coumadin. Dispo: 2-3 days pending improvement. <Magdiel Lewis - Last Filed: 08/22/17 21:44> Exam - Vital Signs Vital Signs: Last Vital Signs Temp 36.8 C 08/22/17 20:00 Pulse 106 H 08/22/17 20:00 Resp 19 08/22/17 20:00 BP 123/80 08/22/17 21:38 Pulse Ox 95 08/22/17 20:00 - Patient Data Lab Results Last 24 hrs: Laboratory Results - last 24 hr 08/22/17 08/22/17 Range/Units 12:54 16:19 Troponin I < 0.10 (0.0-0.29) NG/ML Urine Color YELLOW Urine Appearance CLEAR Urine pH 6.5 (5.0-8.0) Ur Specific [place] 1.010 (1.001-1.035) Urine Protein NEGATIVE (NEGATIVE) mg/dL Urine Glucose (UA) NEGATIVE (NEGATIVE) mg/dL Urine Ketones NEGATIVE (NEGATIVE) mg/dL Urine Occult Blood SMALL H (NEGATIVE) Urine Nitrite NEGATIVE (NEGATIVE) Urine Bilirubin NEGATIVE (NEGATIVE) Urine Urobilinogen 0.2 (<2.0) EU/dL Ur Leukocyte Esterase TRACE (NEGATIVE) Urine RBC 0-3 (0-2/HPF) Urine WBC 0-2 (0-5/HPF) Ur Epithelial Cells OCCASIONAL (NONE-FEW) Calcium Oxalate Crystal FEW (NEGATIVE) Urine Bacteria RARE (NEGATIVE) Result Diagrams: 08/22/17 10:20 08/22/17 10:20 *Q Meaningful Use (ADM) - VTE *Q VTE Criteria *Q: - Stroke *Q Stroke Criteria *Q: - AMI *Q AMI Criteria *Q: Orders Last 24hrs: Active Orders 24 hr Category Date Time Status Height and Weight [RC] DAILY Care 08/22/17 13:28 Active Intake and Output Strict [RC] Q12H Care 08/22/17 14:10 Active Notify Provider Consults [RC] ASDIRECTED Care 08/22/17 12:50 Active Oxygen Therapy [RC] PRN Care 08/22/17 13:28 Active Telemetry Monitoring [Cardiac Monitoring] [RC] . Care 08/22/17 13:33 Active DIRECTED Up ad Yuki [RC] ASDIRECTED Care 08/22/17 13:28 Active VTE/DVT Education [RC] PER UNIT ROUTINE Care 08/22/17 13:28 Active Vital Signs [RC] Q4H Care 08/22/17 13:28 Active Consult to Physician [CONS] Routine Cons 08/22/17 12:50 Active 2 Gram Sodium Diet [DIET] Diet 08/22/17 Lunch Active BMP [BASIC METABOLIC PANEL,BMP] [CHEM] DAILY Lab 08/23/17 05:00 Ordered BMP [BASIC METABOLIC PANEL,BMP] [CHEM] DAILY Lab 08/24/17 05:00 Ordered BMP [BASIC METABOLIC PANEL,BMP] [CHEM] DAILY Lab 08/25/17 05:00 Ordered CBC WITH AUTO DIFF [HEME] AM Lab 08/23/17 05:11 Ordered CBC WITH AUTO DIFF [HEME] AM Lab 08/24/17 05:11 Ordered CBC WITH AUTO DIFF [HEME] AM Lab 08/25/17 05:11 Ordered INR,PT,PROTHROMBIN TIME [COAG] AM Lab 08/23/17 05:11 Ordered INR,PT,PROTHROMBIN TIME [COAG] AM Lab 08/24/17 05:11 Ordered INR,PT,PROTHROMBIN TIME [COAG] AM Lab 08/25/17 05:11 Ordered INR,PT,PROTHROMBIN TIME [COAG] AM Lab 08/26/17 05:11 Ordered MAGNESIUM [CHEM] DAILY Lab 08/23/17 05:00 Ordered MAGNESIUM [CHEM] DAILY Lab 08/24/17 05:00 Ordered MAGNESIUM [CHEM] DAILY Lab 08/25/17 05:00 Ordered TROPONIN I [CHEM] Q6H Lab 08/22/17 22:30 Ordered Cyclobenzaprine [Flexeril] Med 08/22/17 21:00 Active 10 mg PO BEDTIME DULoxetine [Cymbalta] Med 08/22/17 21:00 Active 60 mg PO BEDTIME Furosemide [Lasix] Med 08/22/17 17:00 Active 40 mg IVPUSH BID@0800,1700 Lisinopril [Prinivil] Med 08/22/17 21:00 Active 5 mg PO BEDTIME Methadone Med 08/22/17 13:45 Active 10 mg PO TID Metoprolol Tartrate [Lopressor] Med 08/22/17 17:46 Active 50 mg PO TID Ondansetron [Zofran] Med 08/22/17 13:28 Active 4 mg IVPUSH Q4H PRN Warfarin Dosing [Coumadin Ask] Med 08/23/17 14:00 Active 1 each PO DAILY@1400 traMADol [Ultram] Med 08/22/17 14:11 Active 50 mg PO Q8H PRN Resuscitation Status Routine Resus Stat 08/22/17 13:28 Ordered Medication Orders Cyclobenzaprine HCl (Flexeril) 10 mg PO BEDTIME [facility] Last Admin: 08/22/17 21:38 Dose: 10 mg Duloxetine HCl (Cymbalta) 60 mg PO BEDTIME [facility] Last Admin: 08/22/17 21:37 Dose: 60 mg Furosemide (Lasix) 40 mg IVPUSH BID@0800,1700 [facility] Last Admin: 08/22/17 16:03 Dose: 40 mg Lisinopril (Prinivil) 5 mg PO BEDTIME [facility] Last Admin: 08/22/17 21:38 Dose: 5 mg Methadone HCl (Methadone) 10 mg PO TID [facility] Last Admin: 08/22/17 21:37 Dose: 10 mg Admin: 08/22/17 15:10 Dose: Not Given Admin: 08/22/17 14:00 Dose: 10 mg Metoprolol Tartrate (Lopressor) 50 mg PO TID [facility] Last Admin: 08/22/17 18:13 Dose: 50 mg Ondansetron HCl (Zofran) 4 mg IVPUSH Q4H PRN PRN Reason: Nausea Tramadol HCl (Ultram) 50 mg PO Q8H PRN PRN Reason: Pain Last Admin: 08/22/17 16:04 Dose: 50 mg Warfarin Sodium (Coumadin Ask) 1 each PO DAILY@1400 [facility] - Free Text/Narrative Note: Dr. Lewis writes: I have examined this patient, have gone over her data, and have discussed her at length with Mary PACHECO. I concur with her history physical, assessments and plans.
--- NOTE | 2017-08-22 12:49 | PCM.SN ---
- Free Text/Narrative Note: Called to ER for evalution of patient for difficult IV access. A right hand 22 gauge IV was inserted in the posterior wrist attempts X1. Sterile dressing and saline locked.
[2017-08-22] MEDS ORDERED: Ondansetron 4 MG/2 ML SDV IVPUSH PRN (13:28)
[2017-08-22] MEDS ORDERED: FLU Vacc QS 2017-18 (6mos UP)/PF 60 MCG/0.5 ML Syringe IM ONE (14:00)
[2017-08-22] MEDS: Methadone 10 MG Tab PO SCH ×3 (14:00→21:37)
[2017-08-22] MEDS ORDERED: traMADol 50 MG Tab PO PRN (14:11)
[2017-08-22] MEDS: Furosemide 40 MG/4 ML VIAL IVPUSH SCH (16:03)
[2017-08-22] MEDS ORDERED: Metoprolol Tartrate 5 MG/5 ML SDV IVPUSH ONE (16:36)
[2017-08-22] MEDS: Metoprolol Tartrate 50 MG Tab PO SCH ×2 (18:13→23:13)
[2017-08-22] MEDS ORDERED: Metoprolol Succinate 50 MG Tab.ER PO SCH (21:00)
[2017-08-22] MEDS: DULoxetine 60 MG Cap PO SCH (21:37)
[2017-08-22] MEDS: Cyclobenzaprine 10 MG Tab PO SCH (21:38)
[2017-08-22] MEDS: Lisinopril 5 MG Tab PO SCH (21:38)
[2017-08-23] MEDS: Methadone 10 MG Tab PO SCH ×3 (06:12→21:00)
[2017-08-23] MEDS: Metoprolol Tartrate 50 MG Tab PO SCH ×3 (06:13→21:00)
[2017-08-23 06:14] LABS: CHLORIDE,CL 102 mmol/L (98-110); SODIUM,NA 141 mmol/L (136-146)
[2017-08-23] MEDS: Furosemide 40 MG/4 ML VIAL IVPUSH SCH ×2 (07:41→17:03)
[2017-08-23] MEDS ORDERED: Potassium Chloride 20 MEQ Tab.ER PO ONE (07:58)
[2017-08-23] MEDS ORDERED: Magnesium Sulfate/Water 4 GM in Premix Bag 1 BAG IV ONE (07:58)
[2017-08-23] MEDS ORDERED: DULoxetine 60 MG Cap PO SCH (09:00)
--- NOTE | 2017-08-23 09:12 | CONS ---
DATE OF CONSULTATION: DATE OF : 1950 PRIMARY CARE PHYSICIAN: Riccardo Sanchez MD REASON FOR CONSULTATION: Heart failure. HISTORY: This is a 67-year-old female with history of COPD, hypertension, aortic valve replacement in 2000, question CAD, and history of mitral regurgitation. She was admitted last month for decompensated heart failure as well as atrial fibrillation with RVR. She was discharged with Lasix 60 mg p.o. once a day as well as metoprolol 50 mg twice a day along with lisinopril 5 mg once a day. She has been on anticoagulation for her aortic valve replacement chronically. She presented to the hospital at this time due to one day of worsening shortness of breath, but no chest pain and no heart racing. Then, she was brought to the emergency room and was found to have congestive heart failure. She was wondering, because her medication has been , she found out that her diuretic, Lasix, 4 months ago. She was very certain about her food and thought that she had been watching it very closely. No chest pain. No fever. She has some coughing and some leg swelling. Her medication compliance is 100%. Last time, she was found to have a decline in her LV systolic function as well. PAST MEDICAL HISTORY: Includes aortic valve replacement in 2000, mitral regurgitation, hypertension, history of heart failure, and question of CAD. ALLERGIES: She has no known drug allergies. SOCIAL HISTORY: She denies smoking, drug use, or alcoholic consumption. FAMILY HISTORY: Her mother had a history of heart disease. Her father had a history of cancer. CURRENT MEDICATIONS: Metoprolol 50 mg twice a day, lisinopril 5 mg once a day, Lasix was ordered by the hospitalist team 40 mg IV twice a day, and Coumadin as well. PHYSICAL EXAMINATION: VITAL SIGNS: Initial blood pressure 140/86 and is coming down to 133/74, heart rate was initially 104 and currently is 87, O2 saturation is 94 on room air, and temperature 36.8. HEENT: Not pale. No jaundice. NECK: JVD positive. LUNGS: Crackles bilaterally. No wheezing. Decreased breath sounds. EXTREMITIES: Legs show trace edema. ABDOMEN: Soft and nontender. Bowel sounds present. No hepatosplenomegaly. INVESTIGATIONS: CBC showed WBC 8, hematocrit of 39, hemoglobin 12, and INR 3.7. Sodium 141, potassium 3.7, chloride 102, bicarb 28, BUN 30, creatinine 0.9, and magnesium 1.4. Troponin was negative x3. BNP of 739. Urinalysis was negative for infection. ASSESSMENT AND PLAN: This is a 67-year-old female with history of aortic valve replacement, question coronary artery disease, LV systolic dysfunction, ejection fraction of 30% to 35%, here due to decompensated heart failure. I would recommend to increase the Lasix 40 IV twice a day and ischemic workup is still pending. She technically needs angiogram and has been referred to [facility] as well. I will also recommend to increase metoprolol 50 three times a day for heart rate control and continue Coumadin as well as the lisinopril. KATELYN / STACEY /[id number]
[2017-08-23] MEDS: Omeprazole 20 MG Cap.CR PO SCH ×2 (09:44→17:02)
[2017-08-23] MEDS: Polyethylene Glycol 3350 Powder 17 GM Packet PO SCH (09:44)
--- NOTE | 2017-08-23 10:01 | PCM.PN ---
<Consuelo Linares M - Last Filed: 08/23/17 14:07> - General Info Date of Service: 08/23/17 Admission Dx/Problem (Free Text): CHF exacerbation Subjective Update: Doing well this am, has some complaints of SOB during the night, but improving. No palpitations or chest pain. No complaints of pain. Patient has been ambulating in hallway per self Functional Status: Reports: Pain Controlled, Tolerating Diet, Ambulating, Urinating - Review of Systems General: Reports: No Symptoms. Denies: Fever HEENT: Reports: No Symptoms. Denies: Ear Pain, Headaches, Visual Changes Pulmonary: Reports: Shortness of Breath. Denies: Cough, Sputum, Hemoptysis Cardiovascular: Reports: Dyspnea on Exertion. Denies: Chest Pain, Palpitations Gastrointestinal: Reports: No Symptoms. Denies: Abdominal Pain, Nausea, Vomiting Genitourinary: Reports: No Symptoms. Denies: Dysuria, Frequency, Burning Neurological: Reports: No Symptoms Psychiatric: Reports: No Symptoms - Patient Data Vitals - Most Recent: Last Vital Signs Temp 98.3 F 08/23/17 04:00 Pulse 87 08/23/17 06:13 Resp 16 08/23/17 04:00 BP 133/74 08/23/17 06:13 Pulse Ox 94 L 08/23/17 04:00 Weight - Most Recent: 67.6 kg I&O - Last 24 Hours: Intake & Output 08/22/17 08/23/17 08/23/17 22:59 06:59 14:59 Intake Total 338 490 Output Total 1200 1400 Balance -862 -910 Lab Results Last 24 Hours: Laboratory Results - last 24 hr 08/22/17 08/22/17 08/22/17 Range/Units 12:54 16:19 22:20 WBC (4.0-11.0) K/uL RBC (4.30-5.90) M/uL Hgb (12.0-16.0) g/dL Hct (36.0-46.0) % MCV (80.0-98.0) fL MCH (27.0-32.0) pg MCHC (31.0-37.0) g/dL RDW Std Deviation (28.0-62.0) fl RDW Coeff of Shaun (11.0-15.0) % Plt Count (150-400) K/uL MPV (7.40-12.00) fL Neut % (Auto) (48.0-80.0) % Lymph % (Auto) (16.0-40.0) % [place] % (Auto) (0.0-15.0) % Eos % (Auto) (0.0-7.0) % Baso % (Auto) (0.0-1.5) % Neut # (Auto) (1.4-5.7) K/uL Lymph # (Auto) (0.6-2.4) K/uL [place] # (Auto) (0.0-0.8) K/uL Eos # (Auto) (0.0-0.7) K/uL Baso # (Auto) (0.0-0.1) K/uL Nucleated RBC % /100WBC Nucleated RBCs # K/uL INR (0.86-1.11) Sodium (136-146) mmol/L Potassium (3.5-5.1) mmol/L Chloride (98-110) mmol/L Carbon Dioxide (21-31) mmol/L BUN (6.0-23.0) mg/dL Creatinine (0.6-1.5) mg/dL Est Cr Clr Drug Dosing mL/min Estimated GFR (MDRD) ml/min Glucose (60-110) mg/dL Calcium (8.8-10.8) mg/dL Magnesium (1.5-2.3) mEq/L Troponin I < 0.10 < 0.10 (0.0-0.29) NG/ML Urine Color YELLOW Urine Appearance CLEAR Urine pH 6.5 (5.0-8.0) Ur Specific [place] 1.010 (1.001-1.035) Urine Protein NEGATIVE (NEGATIVE) mg/dL Urine Glucose (UA) NEGATIVE (NEGATIVE) mg/dL Urine Ketones NEGATIVE (NEGATIVE) mg/dL Urine Occult Blood SMALL H (NEGATIVE) Urine Nitrite NEGATIVE (NEGATIVE) Urine Bilirubin NEGATIVE (NEGATIVE) Urine Urobilinogen 0.2 (<2.0) EU/dL Ur Leukocyte Esterase TRACE (NEGATIVE) Urine RBC 0-3 (0-2/HPF) Urine WBC 0-2 (0-5/HPF) Ur Epithelial Cells OCCASIONAL (NONE-FEW) Calcium Oxalate Crystal FEW (NEGATIVE) Urine Bacteria RARE (NEGATIVE) 10/17/17 10/17/17 10/17/17 Range/Units 05:00 05:00 05:00 WBC 8.85 (4.0-11.0) K/uL RBC 4.39 (4.30-5.90) M/uL Hgb 12.6 (12.0-16.0) g/dL Hct 39.1 (36.0-46.0) % MCV 89.1 (80.0-98.0) fL MCH 28.7 (27.0-32.0) pg MCHC 32.2 (31.0-37.0) g/dL RDW Std Deviation 48.3 (28.0-62.0) fl RDW Coeff of Shaun 15 (11.0-15.0) % Plt Count 217 (150-400) K/uL MPV 10.20 (7.40-12.00) fL Neut % (Auto) 75.1 (48.0-80.0) % Lymph % (Auto) 18.0 (16.0-40.0) % [place] % (Auto) 6.8 (0.0-15.0) % Eos % (Auto) 0.0 (0.0-7.0) % Baso % (Auto) 0.1 (0.0-1.5) % Neut # (Auto) 6.7 H (1.4-5.7) K/uL Lymph # (Auto) 1.6 (0.6-2.4) K/uL [place] # (Auto) 0.6 (0.0-0.8) K/uL Eos # (Auto) 0.0 (0.0-0.7) K/uL Baso # (Auto) 0.0 (0.0-0.1) K/uL Nucleated RBC % 0.0 /100WBC Nucleated RBCs # 0 K/uL INR 3.71 H (0.86-1.11) Sodium 141 (136-146) mmol/L Potassium 3.7 (3.5-5.1) mmol/L Chloride 102 (98-110) mmol/L Carbon Dioxide 28 (21-31) mmol/L BUN 30 H (6.0-23.0) mg/dL Creatinine 0.9 (0.6-1.5) mg/dL Est Cr Clr Drug Dosing 43.57 mL/min Estimated GFR (MDRD) > 60.0 ml/min Glucose 95 (60-110) mg/dL Calcium 9.1 (8.8-10.8) mg/dL Magnesium 1.4 L (1.5-2.3) mEq/L Troponin I (0.0-0.29) NG/ML Urine Color Urine Appearance Urine pH (5.0-8.0) Ur Specific [place] (1.001-1.035) Urine Protein (NEGATIVE) mg/dL Urine Glucose (UA) (NEGATIVE) mg/dL Urine Ketones (NEGATIVE) mg/dL Urine Occult Blood (NEGATIVE) Urine Nitrite (NEGATIVE) Urine Bilirubin (NEGATIVE) Urine Urobilinogen (<2.0) EU/dL Ur Leukocyte Esterase (NEGATIVE) Urine RBC (0-2/HPF) Urine WBC (0-5/HPF) Ur Epithelial Cells (NONE-FEW) Calcium Oxalate Crystal (NEGATIVE) Urine Bacteria (NEGATIVE) Med Orders - Current: Current Medications Cyclobenzaprine HCl (Flexeril) 10 mg PO BEDTIME [facility] Last Admin: 08/22/17 21:38 Dose: 10 mg Duloxetine HCl (Cymbalta) 60 mg PO BEDTIME [facility] Last Admin: 08/22/17 21:37 Dose: 60 mg Furosemide (Lasix) 40 mg IVPUSH BID@0800,1700 [facility] Last Admin: 08/23/17 07:41 Dose: 40 mg Lisinopril (Prinivil) 5 mg PO BEDTIME [facility] Last Admin: 08/22/17 21:38 Dose: 5 mg Methadone HCl (Methadone) 10 mg PO TID [facility] Last Admin: 08/23/17 06:12 Dose: 10 mg Metoprolol Tartrate (Lopressor) 50 mg PO TID [facility] Last Admin: 08/23/17 06:13 Dose: 50 mg Omeprazole (Omeprazole) 20 mg PO BIDAC [facility] Last Admin: 08/23/17 09:44 Dose: 20 mg Ondansetron HCl (Zofran) 4 mg IVPUSH Q4H PRN PRN Reason: Nausea Polyethylene Glycol (Miralax) 17 gm PO DAILY [facility] Last Admin: 08/23/17 09:44 Dose: 17 gm Tramadol HCl (Ultram) 50 mg PO Q8H PRN PRN Reason: Pain Last Admin: 08/22/17 16:04 Dose: 50 mg Warfarin Sodium (Coumadin) 6 mg PO DAILY@1400 [facility] Discontinued Medications Albuterol/Ipratropium (Duoneb 3.0-0.5 Mg/3 Ml) 3 ml NEB ONETIME ONE Stop: 08/22/17 10:13 Last Admin: 08/22/17 10:43 Dose: 3 ml Aspirin (Aspirin) 324 mg PO ONETIME ONE Stop: 08/22/17 10:51 Last Admin: 08/22/17 11:08 Dose: 324 mg Duloxetine HCl (Cymbalta) 60 mg PO DAILY [facility] Furosemide (Lasix) 20 mg IVPUSH NOW ONE Stop: 08/22/17 11:29 Last Admin: 08/22/17 11:41 Dose: 20 mg Furosemide (Lasix) 40 mg IVPUSH NOW ONE Stop: 08/22/17 11:41 Last Admin: 08/22/17 11:50 Dose: 40 mg Sodium Chloride (Normal Saline) 1,000 mls @ 125 mls/hr IV STAT [facility] Last Admin: 08/22/17 11:16 Dose: 125 mls/hr Magnesium Sulfate 4 gm/ Premix 100 mls @ 50 mls/hr IV ONETIME ONE Stop: 08/23/17 09:57 Last Admin: 08/23/17 08:33 Dose: 50 mls/hr Influenza Virus Vaccine (Pharmacy To Dose - Influenza Vaccine) 1 each IM ONETIME ONE Stop: 08/22/17 13:44 Influenza Virus Vaccine (Flulaval Quad [id number]) 60 mcg IM .ONCE ONE Stop: 08/22/17 14:01 Methylprednisolone Sodium Succinate (Solu-Medrol) 125 mg IVPUSH ONETIME ONE Stop: 08/22/17 10:13 Last Admin: 08/22/17 11:16 Dose: 125 mg Metoprolol Succinate (Toprol Xl) 50 mg PO BID [facility] Metoprolol Tartrate (Lopressor) 5 mg IVPUSH ONETIME ONE Stop: 08/22/17 16:37 Last Admin: 08/22/17 17:45 Dose: 5 mg Morphine Sulfate (Morphine) 2 mg IVPUSH ONETIME ONE Stop: 08/22/17 12:44 Last Admin: 08/22/17 15:54 Dose: Not Given Potassium Chloride (Klor-Con M20) 40 meq PO ONETIME ONE Stop: 08/23/17 07:59 Last Admin: 08/23/17 08:31 Dose: 40 meq Warfarin Sodium (Coumadin Ask) 1 each PO ONETIME ONE Stop: 08/22/17 14:12 Last Admin: 08/22/17 15:12 Dose: Not Given Warfarin Sodium (Coumadin Ask) 1 each PO DAILY@1400 [facility] Warfarin Sodium (Coumadin) 6 mg PO DAILY@1400 [facility] - Exam Quality Assessment: DVT Prophylaxis. No: Supplemental Oxygen General: Alert, Oriented, Cooperative, No Acute Distress Lungs: Clear to Auscultation, Normal Respiratory Effort Cardiovascular: Regular Rate, Regular Rhythm, No Murmurs GI/Abdominal Exam: Normal Bowel Sounds, Soft, Non-Tender, No Organomegaly, No Distention, No Abnormal Bruit, No Mass, Pelvis Stable Extremities: Normal Inspection, Normal Range of Motion, Non-Tender, No Pedal Edema, Normal Capillary Refill Neurological: No New Focal Deficit Psy/Mental Status: Alert, Normal Affect, Normal Mood - Problem List & Annotations (1) Dyspnea SNOMED Code(s): 097034530 Code(s): R06.00 - DYSPNEA, UNSPECIFIED Status: Acute Priority: High Current Visit: No QualifierTitle: Dyspnea type: dyspnea on exertion Qualified Code(s): R06.09 - Other forms of dyspnea (2) Combined congestive systolic and diastolic heart failure SNOMED Code(s): 69600512 Code(s): I50.40 - UNSP COMBINED SYSTOLIC AND DIASTOLIC (CONGESTIVE) HRT FAIL Status: Chronic Current Visit: Yes QualifierTitle: Congestive heart failure chronicity: acute on chronic Qualified Code(s): I50.43 - Acute on chronic combined systolic (congestive) and diastolic (congestive) heart failure (3) Chest pain SNOMED Code(s): 23716175 Code(s): R07.9 - CHEST PAIN, UNSPECIFIED Status: Acute Current Visit: Yes (4) Afib SNOMED Code(s): 24462464 Code(s): I48.91 - UNSPECIFIED ATRIAL FIBRILLATION Status: Chronic Current Visit: Yes QualifierTitle: Atrial fibrillation type: paroxysmal Qualified Code(s): I48.0 - Paroxysmal atrial fibrillation (5) Cardiomyopathy SNOMED Code(s): 46031826 Code(s): I42.9 - CARDIOMYOPATHY, UNSPECIFIED Status: Chronic Current Visit: Yes (6) Hx of aortic valve replacement SNOMED Code(s): 3998557542136, 3421535710321 Code(s): Z95.2 - PRESENCE OF PROSTHETIC HEART VALVE Status: Chronic Current Visit: Yes (7) Chronic pain syndrome SNOMED Code(s): 501006176 Code(s): G89.4 - CHRONIC PAIN SYNDROME Status: Chronic Current Visit: No (8) Anticoagulated on Coumadin SNOMED Code(s): 72728300 Code(s): Z51.81 - ENCOUNTER FOR THERAPEUTIC DRUG LEVEL MONITORING; Z79.01 - COUNCIL MEMBER (CURRENT) USE OF ANTICOAGULANTS Status: Chronic Priority: Medium Current Visit: No - Problem List Review Problem List Initiated/Reviewed/Updated: Yes - My Orders Last 24 Hours: My Active Orders 08/22/17 12:50 Notify Provider Consults [RC] ASDIRECTED Consult to Physician [CONS] Routine 08/22/17 13:28 Height and Weight [RC] DAILY Oxygen Therapy [RC] PRN Up ad Yuki [RC] ASDIRECTED VTE/DVT Education [RC] PER UNIT ROUTINE Vital Signs [RC] Q4H Ondansetron [Zofran] 4 mg IVPUSH Q4H PRN Resuscitation Status Routine 08/22/17 13:33 Telemetry Monitoring [Cardiac Monitoring] [RC] Q8H 08/22/17 13:45 Methadone 10 mg PO TID 08/22/17 14:10 Intake and Output Strict [RC] Q12H 08/22/17 14:11 traMADol [Ultram] 50 mg PO Q8H PRN 08/22/17 17:00 Furosemide [Lasix] 40 mg IVPUSH BID@0800,1700 08/22/17 17:46 Metoprolol Tartrate [Lopressor] 50 mg PO TID 08/22/17 21:00 Cyclobenzaprine [Flexeril] 10 mg PO BEDTIME DULoxetine [Cymbalta] 60 mg PO BEDTIME Lisinopril [Prinivil] 5 mg PO BEDTIME 08/22/17 Lunch 2 Gram Sodium Diet [DIET] 08/23/17 09:00 Omeprazole 20 mg PO BIDAC Polyethylene Glycol 3350 [MiraLAX] 17 gm PO DAILY 08/23/17 14:00 Warfarin [Coumadin] 6 mg PO DAILY@1400 08/24/17 05:00 BMP [BASIC METABOLIC PANEL,BMP] [CHEM] DAILY MAGNESIUM [CHEM] DAILY 08/24/17 05:11 CBC WITH AUTO DIFF [HEME] AM INR,PT,PROTHROMBIN TIME [COAG] AM 08/25/17 05:00 BMP [BASIC METABOLIC PANEL,BMP] [CHEM] DAILY MAGNESIUM [CHEM] DAILY 08/25/17 05:11 CBC WITH AUTO DIFF [HEME] AM INR,PT,PROTHROMBIN TIME [COAG] AM 08/26/17 05:11 INR,PT,PROTHROMBIN TIME [COAG] AM - Plan Plan:: This 67 year old female admitted with acute on chronic systolic and diastolic HF and dyspnea. 1. Acute on chronic CHF: Combined systolic and diastolic. Continue Diuresis with Lasix 40 mg IV BID. Consult Dr. Dillard. DAILY weights and STRICT I/ O. Low Na diet with 2 L FR. Continue Lisinopril 5 mg daily and changed Metoprolol 50 mg BID to TID. HR is better controlled with this, rates 70-90s. Troponins negative and monitor on telemetry. Last Echo 1 month ago. Will need to continue with follow up in [place] for stress test and angiogram as previously arranged by Dr. Dillard 2. Hx aortic valve replacement: Continue Coumadin today due to INR 3.7. 3. Chronic pain: Continue Methadone and Ultram PRN. VTE prophylaxis: On Coumadin. Dispo: 1 days pending improvement. Possible home in am. <Magdiel Lewis - Last Filed: 08/23/17 19:39> - Patient Data Vitals - Most Recent: Last Vital Signs Temp 36.3 C 08/23/17 15:38 Pulse 75 08/23/17 15:38 Resp 16 08/23/17 15:38 BP 131/57 L 08/23/17 15:38 Pulse Ox 96 08/23/17 15:38 I&O - Last 24 Hours: Intake & Output 08/23/17 08/23/17 08/23/17 06:59 14:59 22:59 Intake Total 490 360 Output Total 1400 1150 Balance -910 -790 Lab Results Last 24 Hours: Laboratory Results - last 24 hr 08/22/17 08/23/17 08/23/17 Range/Units 22:20 05:00 05:00 WBC 8.85 (4.0-11.0) K/uL RBC 4.39 (4.30-5.90) M/uL Hgb 12.6 (12.0-16.0) g/dL Hct 39.1 (36.0-46.0) % MCV 89.1 (80.0-98.0) fL MCH 28.7 (27.0-32.0) pg MCHC 32.2 (31.0-37.0) g/dL RDW Std Deviation 48.3 (28.0-62.0) fl RDW Coeff of Shaun 15 (11.0-15.0) % Plt Count 217 (150-400) K/uL MPV 10.20 (7.40-12.00) fL Neut % (Auto) 75.1 (48.0-80.0) % Lymph % (Auto) 18.0 (16.0-40.0) % [place] % (Auto) 6.8 (0.0-15.0) % Eos % (Auto) 0.0 (0.0-7.0) % Baso % (Auto) 0.1 (0.0-1.5) % Neut # (Auto) 6.7 H (1.4-5.7) K/uL Lymph # (Auto) 1.6 (0.6-2.4) K/uL [place] # (Auto) 0.6 (0.0-0.8) K/uL Eos # (Auto) 0.0 (0.0-0.7) K/uL Baso # (Auto) 0.0 (0.0-0.1) K/uL Nucleated RBC % 0.0 /100WBC Nucleated RBCs # 0 K/uL INR 3.71 H (0.86-1.11) Sodium (136-146) mmol/L Potassium (3.5-5.1) mmol/L Chloride (98-110) mmol/L Carbon Dioxide (21-31) mmol/L BUN (6.0-23.0) mg/dL Creatinine (0.6-1.5) mg/dL Est Cr Clr Drug Dosing mL/min Estimated GFR (MDRD) ml/min Glucose (60-110) mg/dL Calcium (8.8-10.8) mg/dL Magnesium (1.5-2.3) mEq/L Troponin I < 0.10 (0.0-0.29) NG/ML 08/23/17 Range/Units 05:00 WBC (4.0-11.0) K/uL RBC (4.30-5.90) M/uL Hgb (12.0-16.0) g/dL Hct (36.0-46.0) % MCV (80.0-98.0) fL MCH (27.0-32.0) pg MCHC (31.0-37.0) g/dL RDW Std Deviation (28.0-62.0) fl RDW Coeff of Shaun (11.0-15.0) % Plt Count (150-400) K/uL MPV (7.40-12.00) fL Neut % (Auto) (48.0-80.0) % Lymph % (Auto) (16.0-40.0) % [place] % (Auto) (0.0-15.0) % Eos % (Auto) (0.0-7.0) % Baso % (Auto) (0.0-1.5) % Neut # (Auto) (1.4-5.7) K/uL Lymph # (Auto) (0.6-2.4) K/uL [place] # (Auto) (0.0-0.8) K/uL Eos # (Auto) (0.0-0.7) K/uL Baso # (Auto) (0.0-0.1) K/uL Nucleated RBC % /100WBC Nucleated RBCs # K/uL INR (0.86-1.11) Sodium 141 (136-146) mmol/L Potassium 3.7 (3.5-5.1) mmol/L Chloride 102 (98-110) mmol/L Carbon Dioxide 28 (21-31) mmol/L BUN 30 H (6.0-23.0) mg/dL Creatinine 0.9 (0.6-1.5) mg/dL Est Cr Clr Drug Dosing 43.57 mL/min Estimated GFR (MDRD) > 60.0 ml/min Glucose 95 (60-110) mg/dL Calcium 9.1 (8.8-10.8) mg/dL Magnesium 1.4 L (1.5-2.3) mEq/L Troponin I (0.0-0.29) NG/ML Med Orders - Current: Current Medications Cyclobenzaprine HCl (Flexeril) 10 mg PO BEDTIME [facility] Last Admin: 08/22/17 21:38 Dose: 10 mg Duloxetine HCl (Cymbalta) 60 mg PO BEDTIME [facility] Last Admin: 08/22/17 21:37 Dose: 60 mg Furosemide (Lasix) 40 mg IVPUSH BID@0800,1700 [facility] Last Admin: 08/23/17 17:03 Dose: 40 mg Lisinopril (Prinivil) 5 mg PO BEDTIME [facility] Last Admin: 08/22/17 21:38 Dose: 5 mg Methadone HCl (Methadone) 10 mg PO TID [facility] Last Admin: 08/23/17 14:00 Dose: 10 mg Metoprolol Tartrate (Lopressor) 50 mg PO TID [facility] Last Admin: 08/23/17 14:00 Dose: 50 mg Omeprazole (Omeprazole) 20 mg PO BIDAC [facility] Last Admin: 08/23/17 17:02 Dose: 20 mg Ondansetron HCl (Zofran) 4 mg IVPUSH Q4H PRN PRN Reason: Nausea Polyethylene Glycol (Miralax) 17 gm PO DAILY [facility] Last Admin: 08/23/17 09:44 Dose: 17 gm Spironolactone (Aldactone) 12.5 mg PO DAILY [facility] Last Admin: 08/23/17 16:09 Dose: 12.5 mg Tramadol HCl (Ultram) 50 mg PO Q8H PRN PRN Reason: Pain Last Admin: 08/22/17 16:04 Dose: 50 mg Warfarin Sodium (Coumadin) 6 mg PO DAILY@1400 [facility] Last Admin: 08/23/17 14:00 Dose: 6 mg Discontinued Medications Albuterol/Ipratropium (Duoneb 3.0-0.5 Mg/3 Ml) 3 ml NEB ONETIME ONE Stop: 08/22/17 10:13 Last Admin: 08/22/17 10:43 Dose: 3 ml Aspirin (Aspirin) 324 mg PO ONETIME ONE Stop: 08/22/17 10:51 Last Admin: 08/22/17 11:08 Dose: 324 mg Duloxetine HCl (Cymbalta) 60 mg PO DAILY [facility] Furosemide (Lasix) 20 mg IVPUSH NOW ONE Stop: 08/22/17 11:29 Last Admin: 08/22/17 11:41 Dose: 20 mg Furosemide (Lasix) 40 mg IVPUSH NOW ONE Stop: 08/22/17 11:41 Last Admin: 08/22/17 11:50 Dose: 40 mg Sodium Chloride (Normal Saline) 1,000 mls @ 125 mls/hr IV STAT [facility] Last Admin: 08/22/17 11:16 Dose: 125 mls/hr Magnesium Sulfate 4 gm/ Premix 100 mls @ 50 mls/hr IV ONETIME ONE Stop: 08/23/17 09:57 Last Admin: 08/23/17 08:33 Dose: 50 mls/hr Influenza Virus Vaccine (Pharmacy To Dose - Influenza Vaccine) 1 each IM ONETIME ONE Stop: 08/22/17 13:44 Influenza Virus Vaccine (Flulaval Quad [id number]) 60 mcg IM .ONCE ONE Stop: 08/22/17 14:01 Methylprednisolone Sodium Succinate (Solu-Medrol) 125 mg IVPUSH ONETIME ONE Stop: 08/22/17 10:13 Last Admin: 08/22/17 11:16 Dose: 125 mg Metoprolol Succinate (Toprol Xl) 50 mg PO BID [facility] Metoprolol Tartrate (Lopressor) 5 mg IVPUSH ONETIME ONE Stop: 08/22/17 16:37 Last Admin: 08/22/17 17:45 Dose: 5 mg Morphine Sulfate (Morphine) 2 mg IVPUSH ONETIME ONE Stop: 08/22/17 12:44 Last Admin: 08/22/17 15:54 Dose: Not Given Potassium Chloride (Klor-Con M20) 40 meq PO ONETIME ONE Stop: 08/23/17 07:59 Last Admin: 08/23/17 08:31 Dose: 40 meq Warfarin Sodium (Coumadin Ask) 1 each PO ONETIME ONE Stop: 08/22/17 14:12 Last Admin: 08/22/17 15:12 Dose: Not Given Warfarin Sodium (Coumadin Ask) 1 each PO DAILY@1400 [facility] Warfarin Sodium (Coumadin) 6 mg PO DAILY@1400 [facility] - Free Text/Narrative Note: Dr. Lewis writes: I have examined this patient today, I have reviewed her data and the careplan with Consuelo PACHECO. I concur with her note and plan.
[2017-08-23] MEDS: Warfarin 2 MG Tab PO SCH (14:00)
[2017-08-23] MEDS ORDERED: Warfarin 2 MG Tab PO SCH (14:00)
--- NOTE | 2017-08-23 14:20 | PCM.PN ---
- General Info Date of Service: 08/23/17 Admission Dx/Problem (Free Text): 67F COPD HTN s/p AVR hx MR, LV systolic dysfunction EF 30-35% persistent afib with decompensation of sHF Subjective Update: she felt better but when she walk back and forth in the hallway she started feeling winded. No chest pain HR controlled. Functional Status: Reports: Pain Controlled - Review of Systems General: Reports: No Symptoms HEENT: Reports: No Symptoms Pulmonary: Reports: Shortness of Breath Cardiovascular: Reports: No Symptoms, Orthopnea Gastrointestinal: Reports: No Symptoms Genitourinary: Reports: No Symptoms Musculoskeletal: Reports: No Symptoms Skin: Reports: No Symptoms Neurological: Reports: No Symptoms - Patient Data Vitals - Most Recent: Last Vital Signs Temp 36.5 C 08/23/17 08:00 Pulse 75 08/23/17 14:00 Resp 16 08/23/17 08:00 BP 127/55 L 08/23/17 14:00 Pulse Ox 94 L 08/23/17 13:28 Weight - Most Recent: 67.6 kg I&O - Last 24 Hours: Intake & Output 08/22/17 08/23/17 08/23/17 22:59 06:59 14:59 Intake Total 338 490 Output Total 1200 1400 Balance -862 -910 Lab Results Last 24 Hours: Laboratory Results - last 24 hr 08/22/17 08/22/17 08/22/17 Range/Units 12:54 16:19 22:20 WBC (4.0-11.0) K/uL RBC (4.30-5.90) M/uL Hgb (12.0-16.0) g/dL Hct (36.0-46.0) % MCV (80.0-98.0) fL MCH (27.0-32.0) pg MCHC (31.0-37.0) g/dL RDW Std Deviation (28.0-62.0) fl RDW Coeff of Shaun (11.0-15.0) % Plt Count (150-400) K/uL MPV (7.40-12.00) fL Neut % (Auto) (48.0-80.0) % Lymph % (Auto) (16.0-40.0) % [place] % (Auto) (0.0-15.0) % Eos % (Auto) (0.0-7.0) % Baso % (Auto) (0.0-1.5) % Neut # (Auto) (1.4-5.7) K/uL Lymph # (Auto) (0.6-2.4) K/uL [place] # (Auto) (0.0-0.8) K/uL Eos # (Auto) (0.0-0.7) K/uL Baso # (Auto) (0.0-0.1) K/uL Nucleated RBC % /100WBC Nucleated RBCs # K/uL INR (0.86-1.11) Sodium (136-146) mmol/L Potassium (3.5-5.1) mmol/L Chloride (98-110) mmol/L Carbon Dioxide (21-31) mmol/L BUN (6.0-23.0) mg/dL Creatinine (0.6-1.5) mg/dL Est Cr Clr Drug Dosing mL/min Estimated GFR (MDRD) ml/min Glucose (60-110) mg/dL Calcium (8.8-10.8) mg/dL Magnesium (1.5-2.3) mEq/L Troponin I < 0.10 < 0.10 (0.0-0.29) NG/ML Urine RBC 0-3 (0-2/HPF) Urine WBC 0-2 (0-5/HPF) Ur Epithelial Cells OCCASIONAL (NONE-FEW) Calcium Oxalate Crystal FEW (NEGATIVE) Urine Bacteria RARE (NEGATIVE) 08/23/17 08/23/17 08/23/17 Range/Units 05:00 05:00 05:00 WBC 8.85 (4.0-11.0) K/uL RBC 4.39 (4.30-5.90) M/uL Hgb 12.6 (12.0-16.0) g/dL Hct 39.1 (36.0-46.0) % MCV 89.1 (80.0-98.0) fL MCH 28.7 (27.0-32.0) pg MCHC 32.2 (31.0-37.0) g/dL RDW Std Deviation 48.3 (28.0-62.0) fl RDW Coeff of Shaun 15 (11.0-15.0) % Plt Count 217 (150-400) K/uL MPV 10.20 (7.40-12.00) fL Neut % (Auto) 75.1 (48.0-80.0) % Lymph % (Auto) 18.0 (16.0-40.0) % [place] % (Auto) 6.8 (0.0-15.0) % Eos % (Auto) 0.0 (0.0-7.0) % Baso % (Auto) 0.1 (0.0-1.5) % Neut # (Auto) 6.7 H (1.4-5.7) K/uL Lymph # (Auto) 1.6 (0.6-2.4) K/uL [place] # (Auto) 0.6 (0.0-0.8) K/uL Eos # (Auto) 0.0 (0.0-0.7) K/uL Baso # (Auto) 0.0 (0.0-0.1) K/uL Nucleated RBC % 0.0 /100WBC Nucleated RBCs # 0 K/uL INR 3.71 H (0.86-1.11) Sodium 141 (136-146) mmol/L Potassium 3.7 (3.5-5.1) mmol/L Chloride 102 (98-110) mmol/L Carbon Dioxide 28 (21-31) mmol/L BUN 30 H (6.0-23.0) mg/dL Creatinine 0.9 (0.6-1.5) mg/dL Est Cr Clr Drug Dosing 43.57 mL/min Estimated GFR (MDRD) > 60.0 ml/min Glucose 95 (60-110) mg/dL Calcium 9.1 (8.8-10.8) mg/dL Magnesium 1.4 L (1.5-2.3) mEq/L Troponin I (0.0-0.29) NG/ML Urine RBC (0-2/HPF) Urine WBC (0-5/HPF) Ur Epithelial Cells (NONE-FEW) Calcium Oxalate Crystal (NEGATIVE) Urine Bacteria (NEGATIVE) Med Orders - Current: Current Medications Cyclobenzaprine HCl (Flexeril) 10 mg PO BEDTIME [facility] Last Admin: 08/22/17 21:38 Dose: 10 mg Duloxetine HCl (Cymbalta) 60 mg PO BEDTIME [facility] Last Admin: 08/22/17 21:37 Dose: 60 mg Furosemide (Lasix) 40 mg IVPUSH BID@0800,1700 [facility] Last Admin: 08/23/17 07:41 Dose: 40 mg Lisinopril (Prinivil) 5 mg PO BEDTIME [facility] Last Admin: 08/22/17 21:38 Dose: 5 mg Methadone HCl (Methadone) 10 mg PO TID [facility] Last Admin: 08/23/17 14:00 Dose: 10 mg Metoprolol Tartrate (Lopressor) 50 mg PO TID [facility] Last Admin: 08/23/17 14:00 Dose: 50 mg Omeprazole (Omeprazole) 20 mg PO BIDAC [facility] Last Admin: 08/23/17 09:44 Dose: 20 mg Ondansetron HCl (Zofran) 4 mg IVPUSH Q4H PRN PRN Reason: Nausea Polyethylene Glycol (Miralax) 17 gm PO DAILY [facility] Last Admin: 08/23/17 09:44 Dose: 17 gm Tramadol HCl (Ultram) 50 mg PO Q8H PRN PRN Reason: Pain Last Admin: 08/22/17 16:04 Dose: 50 mg Warfarin Sodium (Coumadin) 6 mg PO DAILY@1400 [facility] Last Admin: 08/23/17 14:00 Dose: 6 mg Discontinued Medications Albuterol/Ipratropium (Duoneb 3.0-0.5 Mg/3 Ml) 3 ml NEB ONETIME ONE Stop: 08/22/17 10:13 Last Admin: 08/22/17 10:43 Dose: 3 ml Aspirin (Aspirin) 324 mg PO ONETIME ONE Stop: 08/22/17 10:51 Last Admin: 08/22/17 11:08 Dose: 324 mg Duloxetine HCl (Cymbalta) 60 mg PO DAILY [facility] Furosemide (Lasix) 20 mg IVPUSH NOW ONE Stop: 08/22/17 11:29 Last Admin: 08/22/17 11:41 Dose: 20 mg Furosemide (Lasix) 40 mg IVPUSH NOW ONE Stop: 08/22/17 11:41 Last Admin: 08/22/17 11:50 Dose: 40 mg Sodium Chloride (Normal Saline) 1,000 mls @ 125 mls/hr IV STAT [facility] Last Admin: 08/22/17 11:16 Dose: 125 mls/hr Magnesium Sulfate 4 gm/ Premix 100 mls @ 50 mls/hr IV ONETIME ONE Stop: 08/23/17 09:57 Last Admin: 08/23/17 08:33 Dose: 50 mls/hr Influenza Virus Vaccine (Pharmacy To Dose - Influenza Vaccine) 1 each IM ONETIME ONE Stop: 08/22/17 13:44 Influenza Virus Vaccine (Flulaval Quad [id number]) 60 mcg IM .ONCE ONE Stop: 08/22/17 14:01 Methylprednisolone Sodium Succinate (Solu-Medrol) 125 mg IVPUSH ONETIME ONE Stop: 08/22/17 10:13 Last Admin: 08/22/17 11:16 Dose: 125 mg Metoprolol Succinate (Toprol Xl) 50 mg PO BID [facility] Metoprolol Tartrate (Lopressor) 5 mg IVPUSH ONETIME ONE Stop: 08/22/17 16:37 Last Admin: 08/22/17 17:45 Dose: 5 mg Morphine Sulfate (Morphine) 2 mg IVPUSH ONETIME ONE Stop: 08/22/17 12:44 Last Admin: 08/22/17 15:54 Dose: Not Given Potassium Chloride (Klor-Con M20) 40 meq PO ONETIME ONE Stop: 08/23/17 07:59 Last Admin: 08/23/17 08:31 Dose: 40 meq Warfarin Sodium (Coumadin Ask) 1 each PO ONETIME ONE Stop: 08/22/17 14:12 Last Admin: 08/22/17 15:12 Dose: Not Given Warfarin Sodium (Coumadin Ask) 1 each PO DAILY@1400 [facility] Warfarin Sodium (Coumadin) 6 mg PO DAILY@1400 [facility] - Exam General: Alert, Oriented HEENT: Pupils Equal, Pupils Reactive Neck: Supple, JVD Lungs: Crackles, Rales Cardiovascular: Irregular Rhythm GI/Abdominal Exam: Normal Bowel Sounds, No Distention (Female) Exam: Normal External Exam Extremities: Pedal Edema EKG INTERPRETATION Rhythm: A-Fib - Problem List Review Problem List Initiated/Reviewed/Updated: Yes - Plan Plan:: 67F COPD HTN s/p AVR hx MR, LV systolic dysfunction EF 30-35% persistent afib with decompensation of sHF 1. Acute on chronic CHF: continue lasix 40 IV BID, metoprolol 50 TID, lisinopril 5, will need ischemic work up as outpatient, will add aldactone 12.5 daily 2. Hx aortic valve replacement: Continue Coumadin today due to INR 3.7. 3. Chronic pain: Continue Methadone and Ultram PRN.
[2017-08-23] MEDS: Spironolactone 25 MG Tab PO SCH (16:09)
[2017-08-23] MEDS: DULoxetine 60 MG Cap PO SCH (20:59)
[2017-08-23] MEDS: Lisinopril 5 MG Tab PO SCH (20:59)
[2017-08-23] MEDS: Cyclobenzaprine 10 MG Tab PO SCH (21:00)
[2017-08-24] MEDS: Omeprazole 20 MG Cap.CR PO SCH ×2 (06:46→16:41)
[2017-08-24] MEDS: Methadone 10 MG Tab PO SCH ×3 (06:48→21:25)
[2017-08-24] MEDS: Metoprolol Tartrate 50 MG Tab PO SCH ×3 (06:50→21:26)
[2017-08-24 07:33] LABS: CHLORIDE,CL 99 mmol/L (98-110); SODIUM,NA 140 mmol/L (136-146)
[2017-08-24] MEDS: Furosemide 40 MG/4 ML VIAL IVPUSH SCH ×2 (08:28→16:41)
[2017-08-24] MEDS: Spironolactone 25 MG Tab PO SCH (08:29)
[2017-08-24] MEDS: Polyethylene Glycol 3350 Powder 17 GM Packet PO SCH (08:29)
--- NOTE | 2017-08-24 09:44 | PCM.PN ---
- General Info Date of Service: 08/24/17 Admission Dx/Problem (Free Text): 67F COPD HTN s/p AVR hx MR, LV systolic dysfunction EF 30-35% persistent afib with decompensation of sHF Subjective Update: She has felt better, still slight SOB when walking in the hallway - Review of Systems General: Reports: No Symptoms HEENT: Reports: No Symptoms Pulmonary: Reports: Shortness of Breath Cardiovascular: Reports: No Symptoms Gastrointestinal: Reports: No Symptoms Genitourinary: Reports: No Symptoms Musculoskeletal: Reports: No Symptoms Skin: Reports: No Symptoms - Patient Data Vitals - Most Recent: Last Vital Signs Temp 37.1 C 08/24/17 08:00 Pulse 80 08/24/17 08:00 Resp 18 08/24/17 08:00 BP 129/68 08/24/17 08:00 Pulse Ox 95 08/24/17 08:00 Weight - Most Recent: 66.6 kg I&O - Last 24 Hours: Intake & Output 08/23/17 08/24/17 08/24/17 22:59 06:59 14:59 Intake Total 360 420 Output Total 1150 1200 Balance -790 -780 Lab Results Last 24 Hours: Laboratory Results - last 24 hr 08/24/17 08/24/17 08/24/17 Range/Units 06:24 06:24 06:24 WBC 8.99 (4.0-11.0) K/uL RBC 4.76 (4.30-5.90) M/uL Hgb 13.9 (12.0-16.0) g/dL Hct 43.5 (36.0-46.0) % MCV 91.4 (80.0-98.0) fL MCH 29.2 (27.0-32.0) pg MCHC 32.0 (31.0-37.0) g/dL RDW Std Deviation 50.7 (28.0-62.0) fl RDW Coeff of Shaun 15 (11.0-15.0) % Plt Count 231 (150-400) K/uL MPV 9.70 (7.40-12.00) fL Neut % (Auto) 47.5 L (48.0-80.0) % Lymph % (Auto) 43.4 H (16.0-40.0) % [place] % (Auto) 6.5 (0.0-15.0) % Eos % (Auto) 2.3 (0.0-7.0) % Baso % (Auto) 0.3 (0.0-1.5) % Neut # (Auto) 4.3 (1.4-5.7) K/uL Lymph # (Auto) 3.9 H (0.6-2.4) K/uL [place] # (Auto) 0.6 (0.0-0.8) K/uL Eos # (Auto) 0.2 (0.0-0.7) K/uL Baso # (Auto) 0.0 (0.0-0.1) K/uL Nucleated RBC % 0.0 /100WBC Nucleated RBCs # 0 K/uL INR 2.91 H (0.86-1.11) Sodium 140 (136-146) mmol/L Potassium 4.9 (3.5-5.1) mmol/L Chloride 99 (98-110) mmol/L Carbon Dioxide 31 (21-31) mmol/L BUN 30 H (6.0-23.0) mg/dL Creatinine 0.9 (0.6-1.5) mg/dL Est Cr Clr Drug Dosing 43.57 mL/min Estimated GFR (MDRD) > 60.0 ml/min Glucose 82 (60-110) mg/dL Calcium 9.3 (8.8-10.8) mg/dL Magnesium 2.1 (1.5-2.3) mEq/L B-Natriuretic Peptide (<100) PG/ML 08/24/17 Range/Units 06:24 WBC (4.0-11.0) K/uL RBC (4.30-5.90) M/uL Hgb (12.0-16.0) g/dL Hct (36.0-46.0) % MCV (80.0-98.0) fL MCH (27.0-32.0) pg MCHC (31.0-37.0) g/dL RDW Std Deviation (28.0-62.0) fl RDW Coeff of Shaun (11.0-15.0) % Plt Count (150-400) K/uL MPV (7.40-12.00) fL Neut % (Auto) (48.0-80.0) % Lymph % (Auto) (16.0-40.0) % [place] % (Auto) (0.0-15.0) % Eos % (Auto) (0.0-7.0) % Baso % (Auto) (0.0-1.5) % Neut # (Auto) (1.4-5.7) K/uL Lymph # (Auto) (0.6-2.4) K/uL [place] # (Auto) (0.0-0.8) K/uL Eos # (Auto) (0.0-0.7) K/uL Baso # (Auto) (0.0-0.1) K/uL Nucleated RBC % /100WBC Nucleated RBCs # K/uL INR (0.86-1.11) Sodium (136-146) mmol/L Potassium (3.5-5.1) mmol/L Chloride (98-110) mmol/L Carbon Dioxide (21-31) mmol/L BUN (6.0-23.0) mg/dL Creatinine (0.6-1.5) mg/dL Est Cr Clr Drug Dosing mL/min Estimated GFR (MDRD) ml/min Glucose (60-110) mg/dL Calcium (8.8-10.8) mg/dL Magnesium (1.5-2.3) mEq/L B-Natriuretic Peptide 372 H (<100) PG/ML Med Orders - Current: Current Medications Cyclobenzaprine HCl (Flexeril) 10 mg PO BEDTIME [facility] Last Admin: 08/23/17 21:00 Dose: 10 mg Duloxetine HCl (Cymbalta) 60 mg PO BEDTIME [facility] Last Admin: 08/23/17 20:59 Dose: 60 mg Furosemide (Lasix) 40 mg IVPUSH BID@0800,1700 [facility] Last Admin: 08/24/17 08:28 Dose: 40 mg Lisinopril (Prinivil) 5 mg PO BEDTIME [facility] Last Admin: 08/23/17 20:59 Dose: 5 mg Methadone HCl (Methadone) 10 mg PO TID [facility] Last Admin: 08/24/17 06:48 Dose: 10 mg Metoprolol Tartrate (Lopressor) 50 mg PO TID [facility] Last Admin: 08/24/17 06:50 Dose: 50 mg Omeprazole (Omeprazole) 20 mg PO BIDAC [facility] Last Admin: 10/18/17 06:46 Dose: 20 mg Ondansetron HCl (Zofran) 4 mg IVPUSH Q4H PRN PRN Reason: Nausea Polyethylene Glycol (Miralax) 17 gm PO DAILY [facility] Last Admin: 08/24/17 08:29 Dose: 17 gm Spironolactone (Aldactone) 12.5 mg PO DAILY [facility] Last Admin: 08/24/17 08:29 Dose: 12.5 mg Tramadol HCl (Ultram) 50 mg PO Q8H PRN PRN Reason: Pain Last Admin: 08/22/17 16:04 Dose: 50 mg Warfarin Sodium (Coumadin) 6 mg PO DAILY@1400 [facility] Last Admin: 08/23/17 14:00 Dose: 6 mg Discontinued Medications Albuterol/Ipratropium (Duoneb 3.0-0.5 Mg/3 Ml) 3 ml NEB ONETIME ONE Stop: 08/22/17 10:13 Last Admin: 08/22/17 10:43 Dose: 3 ml Aspirin (Aspirin) 324 mg PO ONETIME ONE Stop: 08/22/17 10:51 Last Admin: 08/22/17 11:08 Dose: 324 mg Duloxetine HCl (Cymbalta) 60 mg PO DAILY [facility] Furosemide (Lasix) 20 mg IVPUSH NOW ONE Stop: 08/22/17 11:29 Last Admin: 08/22/17 11:41 Dose: 20 mg Furosemide (Lasix) 40 mg IVPUSH NOW ONE Stop: 08/22/17 11:41 Last Admin: 08/22/17 11:50 Dose: 40 mg Sodium Chloride (Normal Saline) 1,000 mls @ 125 mls/hr IV STAT [facility] Last Admin: 08/22/17 11:16 Dose: 125 mls/hr Magnesium Sulfate 4 gm/ Premix 100 mls @ 50 mls/hr IV ONETIME ONE Stop: 08/23/17 09:57 Last Admin: 08/23/17 08:33 Dose: 50 mls/hr Influenza Virus Vaccine (Pharmacy To Dose - Influenza Vaccine) 1 each IM ONETIME ONE Stop: 08/22/17 13:44 Influenza Virus Vaccine (Flulaval Quad [id number]) 60 mcg IM .ONCE ONE Stop: 08/22/17 14:01 Methylprednisolone Sodium Succinate (Solu-Medrol) 125 mg IVPUSH ONETIME ONE Stop: 08/22/17 10:13 Last Admin: 08/22/17 11:16 Dose: 125 mg Metoprolol Succinate (Toprol Xl) 50 mg PO BID [facility] Metoprolol Tartrate (Lopressor) 5 mg IVPUSH ONETIME ONE Stop: 08/22/17 16:37 Last Admin: 08/22/17 17:45 Dose: 5 mg Morphine Sulfate (Morphine) 2 mg IVPUSH ONETIME ONE Stop: 08/22/17 12:44 Last Admin: 08/22/17 15:54 Dose: Not Given Potassium Chloride (Klor-Con M20) 40 meq PO ONETIME ONE Stop: 08/23/17 07:59 Last Admin: 08/23/17 08:31 Dose: 40 meq Warfarin Sodium (Coumadin Ask) 1 each PO ONETIME ONE Stop: 08/22/17 14:12 Last Admin: 08/22/17 15:12 Dose: Not Given Warfarin Sodium (Coumadin Ask) 1 each PO DAILY@1400 [facility] Warfarin Sodium (Coumadin) 6 mg PO DAILY@1400 [facility] - Exam General: Alert, Oriented HEENT: Pupils Equal, Pupils Reactive Neck: Supple Lungs: Rales Cardiovascular: Irregular Rhythm GI/Abdominal Exam: Normal Bowel Sounds, No Distention Extremities: Pedal Edema EKG INTERPRETATION Rhythm: A-Fib - Problem List Review Problem List Initiated/Reviewed/Updated: Yes - My Orders Last 24 Hours: My Active Orders 08/23/17 14:30 Spironolactone [Aldactone] 12.5 mg PO DAILY - Plan Plan:: 67F COPD HTN s/p AVR hx MR, LV systolic dysfunction EF 30-35% persistent afib with decompensation of sHF 1. Acute on chronic CHF: continue lasix 40 IV this morning, metoprolol 50 TID, lisinopril 5, will need ischemic work up as outpatient, continue aldactone 12.5 daily 2. Hx aortic valve replacement: Continue Coumadin 3. Chronic pain: Continue Methadone and Ultram PRN. she will be probably discharged today, will see her in 2 weeks
--- NOTE | 2017-08-24 12:17 | PCM.DCSUM1 ---
Discharge Summary - Hospital Course Brief History: This 67 year old female with pmh of aortic valve replacement on chronic anticoagulation, hx mitral valve regurgitation, HTN, CHF, and chronic pain presented to the ED 08/22/17 morning with acute onset of dyspnea. She reports at 0630 that morning, she woke up with SOB, she took a shower hoping it would help and it made it worse and called EMS to bring her to the hospital. She reports having orthopnea as well, no edema to extremities or abdomen. She reports being complaints with medications, diet. She reports having some chest pain, L anterior chest, some pain reproducible with palpation. She reports this pain is worse with activity and has been around for awhile. She has limited activity ability due to dyspnea. She reports getting very SOB with sweeping the floor and needing to rest and the stairs cause her a lot so SOB. She has stairs to get to her bedroom and living space. She reports she was scheduled to have nuclear stress test and possible angiogram in [place] tomorrow. She has been seeing Dr. 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 At that time ECHO reports EF of 35-40%. She reports recently having Digoxin stopped in the clinic by Dr Dillard. She has stopped smoking, does not drink or use recreational drug use. In the ED CBC WNL, INR 4.59, BUN 28. Cr 1.8, CXR revealed cardiomegaly with increased interstitial prominence and pulmonary vasculature, representing exacerbation of CHF. BNP 739. She was give Lasix 60 mg IV. EKG revealed ST rates 100s. She will be admitted for acute CHF exacerbation. Dr Dillard to be consulted upon admission. - Discharge Data Discharge Date: 08/25/17 Discharge Disposition: Home, Self-Care 01 Condition: Good - Discharge Diagnosis/Problem(s) (1) Dyspnea SNOMED Code(s): 761583185 ICD Code: R06.00 - DYSPNEA, UNSPECIFIED Status: Acute Priority: High Current Visit: No Qualifiers: Dyspnea type: dyspnea on exertion Qualified Code(s): R06.09 - Other forms of dyspnea (2) Combined congestive systolic and diastolic heart failure SNOMED Code(s): 00582491 ICD Code: I50.40 - UNSP COMBINED SYSTOLIC AND DIASTOLIC (CONGESTIVE) HRT FAIL Status: Chronic Current Visit: Yes Qualifiers: Congestive heart failure chronicity: acute on chronic Qualified Code(s): I50.43 - Acute on chronic combined systolic (congestive) and diastolic ( congestive) heart failure (3) Chest pain SNOMED Code(s): 80724050 ICD Code: R07.9 - CHEST PAIN, UNSPECIFIED Status: Acute Current Visit: Yes (4) Afib SNOMED Code(s): 35486395 ICD Code: I48.91 - UNSPECIFIED ATRIAL FIBRILLATION Status: Chronic Current Visit: Yes Qualifiers: Atrial fibrillation type: paroxysmal Qualified Code(s): I48.0 - Paroxysmal atrial fibrillation (5) Cardiomyopathy SNOMED Code(s): 84057213 ICD Code: I42.9 - CARDIOMYOPATHY, UNSPECIFIED Status: Chronic Current Visit: Yes (6) Hx of aortic valve replacement SNOMED Code(s): 9454401645238, 1824178723526 ICD Code: Z95.2 - PRESENCE OF PROSTHETIC HEART VALVE Status: Chronic Current Visit: Yes (7) Chronic pain syndrome SNOMED Code(s): 421263304 ICD Code: G89.4 - CHRONIC PAIN SYNDROME Status: Chronic Current Visit: No (8) Anticoagulated on Coumadin SNOMED Code(s): 56291027 ICD Code: Z51.81 - ENCOUNTER FOR THERAPEUTIC DRUG LEVEL MONITORING; Z79.01 - SOIL FERTILITY SPECIALIST (CURRENT) USE OF ANTICOAGULANTS Status: Chronic Priority: Medium Current Visit: No - Patient Summary/Data Consults: Consultations 08/22/17 12:50 Consult to Physician [CONS] Routine - Patient Instructions Diet: Low Sodium (2 liter fluid restriction) Fluid Restriction: 2000 mL Activity: As Tolerated Showering/Bathing: May Shower Notify Provider of: Fever, Increased Pain, Swelling and Redness, Drainage, Nausea and/or Vomiting Other/Special Instructions: Ischemic work-up to be arranged by Dr. Dillard in [place]. Weigh yourself daily and log weight. - Discharge Plan Prescriptions/Med Rec: Furosemide [Lasix] 40 mg PO BID #60 tablet Home Medications: Home Meds Cyclobenzaprine [Flexeril] 10 mg PO BEDTIME 11/28/16 [History] Warfarin [Coumadin] 6 mg PO BEDTIME 11/28/16 [History] DULoxetine HCl [Duloxetine HCl] 60 mg PO BEDTIME 07/18/17 [History] Methadone 10 mg PO TID 07/18/17 [History] traMADol [Ultram] 50 mg PO Q8H #90 tablet 07/23/17 [Rx] Lisinopril [Prinivil] 5 mg PO BEDTIME 08/22/17 [History] Polyethylene Glycol 3350 [MiraLAX] 1 package PO DAILY 08/22/17 [History] atorvaSTATin [Lipitor] 1 tab PO DAILY 08/22/17 [History] Furosemide [Lasix] 40 mg PO BID #60 tablet 08/24/17 [Rx] Metoprolol Tartrate [Lopressor] 50 mg PO TID tablet 08/24/17 [Rx] Omeprazole 20 mg PO BIDAC cap.cr 08/24/17 [Rx] Spironolactone [Aldactone] 12.5 mg PO DAILY tablet 08/24/17 [Rx] Patient Handouts: Furosemide tablets, Spironolactone tablets, Heart Failure, [id number] Referrals: [facility] [Outside] Santy Aguilera DO [Physician] - 08/30/17 3:00 pm Khris Dillard MD [Physician] - 08/31/17 9:00 am ( ) - Discharge Summary/Plan Comment DC Time >30 min.: No Discharge Summary/Plan Comment: Discharge Diagnoses: Acute on chronic systolic HF with LV ED 30-35% COPD HTN Hx AVR Chronic anticoagulation due to AVR Chronic pain on Methadone Alanna was admitted and treated with IV Lasix 40 mg IV BID. She continued to improved and dyspnea was back to baseline. Dr. Dillard was consulted and assisted on this case. Metoprolol 50 mg was increased to TID and Aldactone 12.[address] Dillard and patient are arranging ischemic work- up in [place] as outpatient. She will be sent home today, she is no longer dyspnea with rest, does have some JIMENEZ which is near baseline. She is ambulating up and down hallways without oxygen and tolerating this well. She is to return to see Dr Dillard in 2 weeks. She was asking for Methadone refill, she was directed back to her PCP, Dr Sanchez for this. She will have Metoprolol 50 mg TID, Lasix 40 mg BID, and Aldactone 12.5 mg, and Dr. Dillard will provide these prescriptions. Today she is doing well and is ready for discharge. She is to return to clinic or ED if concerns should arise. She is stating she wants to switch providers to be all at [facility], she reports having appointment set up with Dr. Aguilera on Aug 30. Will arrange this for the patient. - General Info Date of Service: 08/25/17 Admission Dx/Problem (Free Text: 67F COPD HTN s/p AVR hx MR, LV systolic dysfunction EF 30-35% persistent afib with decompensation of sHF Subjective Update: Sitting on the edge of bed this morning doing well and very eager to be discharged home. She denies SOB or chest pain. Functional Status: Reports: Pain Controlled, Tolerating Diet, Ambulating, Urinating - Review of Systems General: Reports: No Symptoms. Denies: Fever HEENT: Reports: No Symptoms. Denies: Sore Throat Pulmonary: Reports: No Symptoms. Denies: Shortness of Breath Cardiovascular: Reports: No Symptoms. Denies: Chest Pain, Palpitations Gastrointestinal: Reports: No Symptoms. Denies: Abdominal Pain, Nausea, Vomiting Psychiatric: Reports: No Symptoms. Denies: Anxiety - Patient Data Vitals - Most Recent: Last Vital Signs Temp 98.7 F 08/24/17 12:00 Pulse 80 08/24/17 08:00 Resp 18 08/24/17 12:00 BP 122/68 08/24/17 12:00 Pulse Ox 95 08/24/17 12:00 Weight - Most Recent: 66.6 kg I&O - Last 24 hours: Intake & Output 08/23/17 08/24/17 08/24/17 22:59 06:59 14:59 Intake Total 360 420 Output Total 1150 1200 Balance -790 -780 Lab Results - Last 24 hrs: Laboratory Results - last 24 hr 08/24/17 08/24/17 08/24/17 Range/Units 06:24 06:24 06:24 WBC 8.99 (4.0-11.0) K/uL RBC 4.76 (4.30-5.90) M/uL Hgb 13.9 (12.0-16.0) g/dL Hct 43.5 (36.0-46.0) % MCV 91.4 (80.0-98.0) fL MCH 29.2 (27.0-32.0) pg MCHC 32.0 (31.0-37.0) g/dL RDW Std Deviation 50.7 (28.0-62.0) fl RDW Coeff of Shaun 15 (11.0-15.0) % Plt Count 231 (150-400) K/uL MPV 9.70 (7.40-12.00) fL Neut % (Auto) 47.5 L (48.0-80.0) % Lymph % (Auto) 43.4 H (16.0-40.0) % [place] % (Auto) 6.5 (0.0-15.0) % Eos % (Auto) 2.3 (0.0-7.0) % Baso % (Auto) 0.3 (0.0-1.5) % Neut # (Auto) 4.3 (1.4-5.7) K/uL Lymph # (Auto) 3.9 H (0.6-2.4) K/uL [place] # (Auto) 0.6 (0.0-0.8) K/uL Eos # (Auto) 0.2 (0.0-0.7) K/uL Baso # (Auto) 0.0 (0.0-0.1) K/uL Nucleated RBC % 0.0 /100WBC Nucleated RBCs # 0 K/uL INR 2.91 H (0.86-1.11) Sodium 140 (136-146) mmol/L Potassium 4.9 (3.5-5.1) mmol/L Chloride 99 (98-110) mmol/L Carbon Dioxide 31 (21-31) mmol/L BUN 30 H (6.0-23.0) mg/dL Creatinine 0.9 (0.6-1.5) mg/dL Est Cr Clr Drug Dosing 43.57 mL/min Estimated GFR (MDRD) > 60.0 ml/min Glucose 82 (60-110) mg/dL Calcium 9.3 (8.8-10.8) mg/dL Magnesium 2.1 (1.5-2.3) mEq/L B-Natriuretic Peptide (<100) PG/ML 08/24/17 Range/Units 06:24 WBC (4.0-11.0) K/uL RBC (4.30-5.90) M/uL Hgb (12.0-16.0) g/dL Hct (36.0-46.0) % MCV (80.0-98.0) fL MCH (27.0-32.0) pg MCHC (31.0-37.0) g/dL RDW Std Deviation (28.0-62.0) fl RDW Coeff of Shaun (11.0-15.0) % Plt Count (150-400) K/uL MPV (7.40-12.00) fL Neut % (Auto) (48.0-80.0) % Lymph % (Auto) (16.0-40.0) % [place] % (Auto) (0.0-15.0) % Eos % (Auto) (0.0-7.0) % Baso % (Auto) (0.0-1.5) % Neut # (Auto) (1.4-5.7) K/uL Lymph # (Auto) (0.6-2.4) K/uL [place] # (Auto) (0.0-0.8) K/uL Eos # (Auto) (0.0-0.7) K/uL Baso # (Auto) (0.0-0.1) K/uL Nucleated RBC % /100WBC Nucleated RBCs # K/uL INR (0.86-1.11) Sodium (136-146) mmol/L Potassium (3.5-5.1) mmol/L Chloride (98-110) mmol/L Carbon Dioxide (21-31) mmol/L BUN (6.0-23.0) mg/dL Creatinine (0.6-1.5) mg/dL Est Cr Clr Drug Dosing mL/min Estimated GFR (MDRD) ml/min Glucose (60-110) mg/dL Calcium (8.8-10.8) mg/dL Magnesium (1.5-2.3) mEq/L B-Natriuretic Peptide 372 H (<100) PG/ML Med Orders - Current: Current Medications Cyclobenzaprine HCl (Flexeril) 10 mg PO BEDTIME [facility] Last Admin: 08/23/17 21:00 Dose: 10 mg Duloxetine HCl (Cymbalta) 60 mg PO BEDTIME [facility] Last Admin: 08/23/17 20:59 Dose: 60 mg Furosemide (Lasix) 40 mg IVPUSH BID@0800,1700 [facility] Last Admin: 08/24/17 08:28 Dose: 40 mg Lisinopril (Prinivil) 5 mg PO BEDTIME [facility] Last Admin: 08/23/17 20:59 Dose: 5 mg Methadone HCl (Methadone) 10 mg PO TID [facility] Last Admin: 08/24/17 06:48 Dose: 10 mg Metoprolol Tartrate (Lopressor) 50 mg PO TID [facility] Last Admin: 08/24/17 06:50 Dose: 50 mg Omeprazole (Omeprazole) 20 mg PO BIDAC [facility] Last Admin: 08/24/17 06:46 Dose: 20 mg Ondansetron HCl (Zofran) 4 mg IVPUSH Q4H PRN PRN Reason: Nausea Polyethylene Glycol (Miralax) 17 gm PO DAILY [facility] Last Admin: 08/24/17 08:29 Dose: 17 gm Spironolactone (Aldactone) 12.5 mg PO DAILY [facility] Last Admin: 08/24/17 08:29 Dose: 12.5 mg Tramadol HCl (Ultram) 50 mg PO Q8H PRN PRN Reason: Pain Last Admin: 08/22/17 16:04 Dose: 50 mg Warfarin Sodium (Coumadin) 6 mg PO DAILY@1400 [facility] Last Admin: 08/23/17 14:00 Dose: 6 mg Discontinued Medications Albuterol/Ipratropium (Duoneb 3.0-0.5 Mg/3 Ml) 3 ml NEB ONETIME ONE Stop: 08/22/17 10:13 Last Admin: 08/22/17 10:43 Dose: 3 ml Aspirin (Aspirin) 324 mg PO ONETIME ONE Stop: 08/22/17 10:51 Last Admin: 08/22/17 11:08 Dose: 324 mg Duloxetine HCl (Cymbalta) 60 mg PO DAILY [facility] Furosemide (Lasix) 20 mg IVPUSH NOW ONE Stop: 08/22/17 11:29 Last Admin: 08/22/17 11:41 Dose: 20 mg Furosemide (Lasix) 40 mg IVPUSH NOW ONE Stop: 08/22/17 11:41 Last Admin: 08/22/17 11:50 Dose: 40 mg Sodium Chloride (Normal Saline) 1,000 mls @ 125 mls/hr IV STAT [facility] Last Admin: 08/22/17 11:16 Dose: 125 mls/hr Magnesium Sulfate 4 gm/ Premix 100 mls @ 50 mls/hr IV ONETIME ONE Stop: 08/23/17 09:57 Last Admin: 08/23/17 08:33 Dose: 50 mls/hr Influenza Virus Vaccine (Pharmacy To Dose - Influenza Vaccine) 1 each IM ONETIME ONE Stop: 08/22/17 13:44 Influenza Virus Vaccine (Flulaval Quad [id number]) 60 mcg IM .ONCE ONE Stop: 08/22/17 14:01 Methylprednisolone Sodium Succinate (Solu-Medrol) 125 mg IVPUSH ONETIME ONE Stop: 08/22/17 10:13 Last Admin: 08/22/17 11:16 Dose: 125 mg Metoprolol Succinate (Toprol Xl) 50 mg PO BID [facility] Metoprolol Tartrate (Lopressor) 5 mg IVPUSH ONETIME ONE Stop: 08/22/17 16:37 Last Admin: 08/22/17 17:45 Dose: 5 mg Morphine Sulfate (Morphine) 2 mg IVPUSH ONETIME ONE Stop: 08/22/17 12:44 Last Admin: 08/22/17 15:54 Dose: Not Given Potassium Chloride (Klor-Con M20) 40 meq PO ONETIME ONE Stop: 08/23/17 07:59 Last Admin: 08/23/17 08:31 Dose: 40 meq Warfarin Sodium (Coumadin Ask) 1 each PO ONETIME ONE Stop: 08/22/17 14:12 Last Admin: 08/22/17 15:12 Dose: Not Given Warfarin Sodium (Coumadin Ask) 1 each PO DAILY@1400 [facility] Warfarin Sodium (Coumadin) 6 mg PO DAILY@1400 [facility] - Exam General: Reports: Alert, Oriented, Cooperative, No Acute Distress Lungs: Reports: Clear to Auscultation, Normal Respiratory Effort Cardiovascular: Reports: Regular Rate, Regular Rhythm, Other (mechanical click) Back Exam: Reports: Normal Inspection, Full Range of Motion Extremities: Normal Inspection, Normal Range of Motion, Non-Tender, No Pedal Edema, Normal Capillary Refill Psy/Mental Status: Reports: Alert, Normal Affect, Normal Mood *Q Meaningful Use (DIS) - VTE *Q VTE Criteria *Q: - Stroke *Q Stroke Criteria *Q: - AMI *Q AMI Criteria *Q:
--- NOTE | 2017-08-24 12:41 | PCM.PN ---
- General Info Date of Service: 08/24/17 Admission Dx/Problem (Free Text): 67F COPD HTN s/p AVR hx MR, LV systolic dysfunction EF 30-35% persistent afib with decompensation of sHF Subjective Update: Patient was ready to be discharged, but got very anxious and feels she is not ready and still feeling SOB intermittently. She would like one more night and reports she thinks she will be ready in the morning. "I feel I will at home , if I get SOB and it takes [facility] for [facility] to get there." Daughter at bedside and reports her having some anxiety with going home. Functional Status: Reports: Pain Controlled, Tolerating Diet, Ambulating, Urinating - Review of Systems General: Reports: No Symptoms HEENT: Reports: No Symptoms Pulmonary: Reports: Shortness of Breath (intermittently). Denies: Cough Cardiovascular: Denies: Chest Pain, Palpitations, Orthopnea, Edema Gastrointestinal: Reports: No Symptoms. Denies: Abdominal Pain, Nausea, Vomiting Skin: Reports: No Symptoms Neurological: Reports: No Symptoms Psychiatric: Reports: No Symptoms - Patient Data Vitals - Most Recent: Last Vital Signs Temp 98.7 F 08/24/17 12:00 Pulse 80 08/24/17 08:00 Resp 18 08/24/17 12:00 BP 122/68 08/24/17 12:00 Pulse Ox 95 08/24/17 12:00 Weight - Most Recent: 66.6 kg I&O - Last 24 Hours: Intake & Output 08/23/17 08/24/17 08/24/17 22:59 06:59 14:59 Intake Total 360 420 Output Total 1150 1200 Balance -790 -780 Lab Results Last 24 Hours: Laboratory Results - last 24 hr 08/24/17 08/24/17 08/24/17 Range/Units 06:24 06:24 06:24 WBC 8.99 (4.0-11.0) K/uL RBC 4.76 (4.30-5.90) M/uL Hgb 13.9 (12.0-16.0) g/dL Hct 43.5 (36.0-46.0) % MCV 91.4 (80.0-98.0) fL MCH 29.2 (27.0-32.0) pg MCHC 32.0 (31.0-37.0) g/dL RDW Std Deviation 50.7 (28.0-62.0) fl RDW Coeff of Shaun 15 (11.0-15.0) % Plt Count 231 (150-400) K/uL MPV 9.70 (7.40-12.00) fL Neut % (Auto) 47.5 L (48.0-80.0) % Lymph % (Auto) 43.4 H (16.0-40.0) % [place] % (Auto) 6.5 (0.0-15.0) % Eos % (Auto) 2.3 (0.0-7.0) % Baso % (Auto) 0.3 (0.0-1.5) % Neut # (Auto) 4.3 (1.4-5.7) K/uL Lymph # (Auto) 3.9 H (0.6-2.4) K/uL [place] # (Auto) 0.6 (0.0-0.8) K/uL Eos # (Auto) 0.2 (0.0-0.7) K/uL Baso # (Auto) 0.0 (0.0-0.1) K/uL Nucleated RBC % 0.0 /100WBC Nucleated RBCs # 0 K/uL INR 2.91 H (0.86-1.11) Sodium 140 (136-146) mmol/L Potassium 4.9 (3.5-5.1) mmol/L Chloride 99 (98-110) mmol/L Carbon Dioxide 31 (21-31) mmol/L BUN 30 H (6.0-23.0) mg/dL Creatinine 0.9 (0.6-1.5) mg/dL Est Cr Clr Drug Dosing 43.57 mL/min Estimated GFR (MDRD) > 60.0 ml/min Glucose 82 (60-110) mg/dL Calcium 9.3 (8.8-10.8) mg/dL Magnesium 2.1 (1.5-2.3) mEq/L B-Natriuretic Peptide (<100) PG/ML 08/24/17 Range/Units 06:24 WBC (4.0-11.0) K/uL RBC (4.30-5.90) M/uL Hgb (12.0-16.0) g/dL Hct (36.0-46.0) % MCV (80.0-98.0) fL MCH (27.0-32.0) pg MCHC (31.0-37.0) g/dL RDW Std Deviation (28.0-62.0) fl RDW Coeff of Shaun (11.0-15.0) % Plt Count (150-400) K/uL MPV (7.40-12.00) fL Neut % (Auto) (48.0-80.0) % Lymph % (Auto) (16.0-40.0) % [place] % (Auto) (0.0-15.0) % Eos % (Auto) (0.0-7.0) % Baso % (Auto) (0.0-1.5) % Neut # (Auto) (1.4-5.7) K/uL Lymph # (Auto) (0.6-2.4) K/uL [place] # (Auto) (0.0-0.8) K/uL Eos # (Auto) (0.0-0.7) K/uL Baso # (Auto) (0.0-0.1) K/uL Nucleated RBC % /100WBC Nucleated RBCs # K/uL INR (0.86-1.11) Sodium (136-146) mmol/L Potassium (3.5-5.1) mmol/L Chloride (98-110) mmol/L Carbon Dioxide (21-31) mmol/L BUN (6.0-23.0) mg/dL Creatinine (0.6-1.5) mg/dL Est Cr Clr Drug Dosing mL/min Estimated GFR (MDRD) ml/min Glucose (60-110) mg/dL Calcium (8.8-10.8) mg/dL Magnesium (1.5-2.3) mEq/L B-Natriuretic Peptide 372 H (<100) PG/ML Med Orders - Current: Current Medications Cyclobenzaprine HCl (Flexeril) 10 mg PO BEDTIME [facility] Last Admin: 08/23/17 21:00 Dose: 10 mg Duloxetine HCl (Cymbalta) 60 mg PO BEDTIME [facility] Last Admin: 08/23/17 20:59 Dose: 60 mg Furosemide (Lasix) 40 mg IVPUSH BID@0800,1700 [facility] Last Admin: 08/24/17 08:28 Dose: 40 mg Lisinopril (Prinivil) 5 mg PO BEDTIME [facility] Last Admin: 08/23/17 20:59 Dose: 5 mg Methadone HCl (Methadone) 10 mg PO TID [facility] Last Admin: 08/24/17 06:48 Dose: 10 mg Metoprolol Tartrate (Lopressor) 50 mg PO TID [facility] Last Admin: 08/24/17 06:50 Dose: 50 mg Omeprazole (Omeprazole) 20 mg PO BIDAC [facility] Last Admin: 08/24/17 06:46 Dose: 20 mg Ondansetron HCl (Zofran) 4 mg IVPUSH Q4H PRN PRN Reason: Nausea Polyethylene Glycol (Miralax) 17 gm PO DAILY [facility] Last Admin: 08/24/17 08:29 Dose: 17 gm Spironolactone (Aldactone) 12.5 mg PO DAILY [facility] Last Admin: 08/24/17 08:29 Dose: 12.5 mg Tramadol HCl (Ultram) 50 mg PO Q8H PRN PRN Reason: Pain Last Admin: 08/22/17 16:04 Dose: 50 mg Warfarin Sodium (Coumadin) 6 mg PO DAILY@1400 [facility] Last Admin: 08/23/17 14:00 Dose: 6 mg Discontinued Medications Albuterol/Ipratropium (Duoneb 3.0-0.5 Mg/3 Ml) 3 ml NEB ONETIME ONE Stop: 08/22/17 10:13 Last Admin: 08/22/17 10:43 Dose: 3 ml Aspirin (Aspirin) 324 mg PO ONETIME ONE Stop: 08/22/17 10:51 Last Admin: 08/22/17 11:08 Dose: 324 mg Duloxetine HCl (Cymbalta) 60 mg PO DAILY [facility] Furosemide (Lasix) 20 mg IVPUSH NOW ONE Stop: 08/22/17 11:29 Last Admin: 08/22/17 11:41 Dose: 20 mg Furosemide (Lasix) 40 mg IVPUSH NOW ONE Stop: 08/22/17 11:41 Last Admin: 08/22/17 11:50 Dose: 40 mg Sodium Chloride (Normal Saline) 1,000 mls @ 125 mls/hr IV STAT [facility] Last Admin: 08/22/17 11:16 Dose: 125 mls/hr Magnesium Sulfate 4 gm/ Premix 100 mls @ 50 mls/hr IV ONETIME ONE Stop: 08/23/17 09:57 Last Admin: 08/23/17 08:33 Dose: 50 mls/hr Influenza Virus Vaccine (Pharmacy To Dose - Influenza Vaccine) 1 each IM ONETIME ONE Stop: 08/22/17 13:44 Influenza Virus Vaccine (Flulaval Quad [id number]) 60 mcg IM .ONCE ONE Stop: 08/22/17 14:01 Methylprednisolone Sodium Succinate (Solu-Medrol) 125 mg IVPUSH ONETIME ONE Stop: 08/22/17 10:13 Last Admin: 08/22/17 11:16 Dose: 125 mg Metoprolol Succinate (Toprol Xl) 50 mg PO BID [facility] Metoprolol Tartrate (Lopressor) 5 mg IVPUSH ONETIME ONE Stop: 08/22/17 16:37 Last Admin: 08/22/17 17:45 Dose: 5 mg Morphine Sulfate (Morphine) 2 mg IVPUSH ONETIME ONE Stop: 08/22/17 12:44 Last Admin: 08/22/17 15:54 Dose: Not Given Potassium Chloride (Klor-Con M20) 40 meq PO ONETIME ONE Stop: 08/23/17 07:59 Last Admin: 08/23/17 08:31 Dose: 40 meq Warfarin Sodium (Coumadin Ask) 1 each PO ONETIME ONE Stop: 08/22/17 14:12 Last Admin: 08/22/17 15:12 Dose: Not Given Warfarin Sodium (Coumadin Ask) 1 each PO DAILY@1400 [facility] Warfarin Sodium (Coumadin) 6 mg PO DAILY@1400 [facility] - Exam General: Alert, Oriented, Cooperative, No Acute Distress Lungs: Clear to Auscultation, Normal Respiratory Effort Cardiovascular: Regular Rate, Regular Rhythm GI/Abdominal Exam: Normal Bowel Sounds, Soft, Non-Tender, No Organomegaly, No Distention, No Abnormal Bruit, No Mass, Pelvis Stable Extremities: Normal Inspection, Normal Range of Motion, Non-Tender, No Pedal Edema, Normal Capillary Refill Neurological: No New Focal Deficit Psy/Mental Status: Alert, Normal Affect, Normal Mood - Problem List & Annotations (1) Dyspnea SNOMED Code(s): 079757271 Code(s): R06.00 - DYSPNEA, UNSPECIFIED Status: Acute Priority: High Current Visit: No Qualifiers: Dyspnea type: dyspnea on exertion Qualified Code(s): R06.09 - Other forms of dyspnea (2) Combined congestive systolic and diastolic heart failure SNOMED Code(s): 73030484 Code(s): I50.40 - UNSP COMBINED SYSTOLIC AND DIASTOLIC (CONGESTIVE) HRT FAIL Status: Chronic Current Visit: Yes Qualifiers: Congestive heart failure chronicity: acute on chronic Qualified Code(s): I50.43 - Acute on chronic combined systolic (congestive) and diastolic ( congestive) heart failure (3) Chest pain SNOMED Code(s): 44657520 Code(s): R07.9 - CHEST PAIN, UNSPECIFIED Status: Acute Current Visit: Yes (4) Afib SNOMED Code(s): 75676111 Code(s): I48.91 - UNSPECIFIED ATRIAL FIBRILLATION Status: Chronic Current Visit: Yes Qualifiers: Atrial fibrillation type: paroxysmal Qualified Code(s): I48.0 - Paroxysmal atrial fibrillation (5) Cardiomyopathy SNOMED Code(s): 31187049 Code(s): I42.9 - CARDIOMYOPATHY, UNSPECIFIED Status: Chronic Current Visit: Yes (6) Hx of aortic valve replacement SNOMED Code(s): 8589532677127, 0932993514580 Code(s): Z95.2 - PRESENCE OF PROSTHETIC HEART VALVE Status: Chronic Current Visit: Yes (7) Chronic pain syndrome SNOMED Code(s): 244538039 Code(s): G89.4 - CHRONIC PAIN SYNDROME Status: Chronic Current Visit: No (8) Anticoagulated on Coumadin SNOMED Code(s): 53767887 Code(s): Z51.81 - ENCOUNTER FOR THERAPEUTIC DRUG LEVEL MONITORING; Z79.01 - RETORT ENGINEER (CURRENT) USE OF ANTICOAGULANTS Status: Chronic Priority: Medium Current Visit: No - Problem List Review Problem List Initiated/Reviewed/Updated: Yes - My Orders Last 24 Hours: My Active Orders 08/23/17 14:00 Warfarin [Coumadin] 6 mg PO DAILY@1400 08/24/17 11:43 Ready for Discharge [RC] PER UNIT ROUTINE 08/25/17 05:00 BMP [BASIC METABOLIC PANEL,BMP] [CHEM] DAILY MAGNESIUM [CHEM] DAILY 08/25/17 05:11 CBC WITH AUTO DIFF [HEME] AM INR,PT,PROTHROMBIN TIME [COAG] AM 08/26/17 05:11 INR,PT,PROTHROMBIN TIME [COAG] AM - Plan Plan:: This 67 year old female admitted with acute on chronic systolic and diastolic HF and dyspnea. 1. Acute on chronic CHF: Continue lasix 40 IV BID, Metoprolol 50 TID, Lisinopril 5, and continue aldactone 12.5 daily. Ischemic workup being planned, they have contacted daughter regarding scheduling. 2. Hx aortic valve replacement: Continue Coumadin 3. Chronic pain: Continue Methadone and Ultram PRN. VTE prophylaxis: On Coumadin. Dispo: in morning.
[2017-08-24] MEDS: Warfarin 2 MG Tab PO SCH (13:11)
[2017-08-24] MEDS ORDERED: Furosemide 40 MG/4 ML VIAL IVPUSH ONE (17:12)
[2017-08-24] MEDS: Lisinopril 5 MG Tab PO SCH (21:06)
[2017-08-24] MEDS: Cyclobenzaprine 10 MG Tab PO SCH (21:07)
[2017-08-24] MEDS: DULoxetine 60 MG Cap PO SCH (21:07)
[2017-08-25] MEDS: Metoprolol Tartrate 50 MG Tab PO SCH (05:57)
[2017-08-25] MEDS: Methadone 10 MG Tab PO SCH (05:58)
[2017-08-25 06:36] LABS: CHLORIDE,CL 97 mmol/L (98-110); SODIUM,NA 139 mmol/L (136-146)
[2017-08-25] MEDS: Omeprazole 20 MG Cap.CR PO SCH (07:16)
[2017-08-25 08:06] VITALS: BP 117/62
[2017-08-25] MEDS: Furosemide 40 MG/4 ML VIAL IVPUSH SCH (08:18)
[2017-08-25] MEDS: Polyethylene Glycol 3350 Powder 17 GM Packet PO SCH (08:21)
[2017-08-25] MEDS: Spironolactone 25 MG Tab PO SCH (08:21)
--- NOTE | 2017-08-25 08:54 | PCM.PN ---
- General Info Date of Service: 08/25/17 Admission Dx/Problem (Free Text): 67F COPD HTN s/p AVR hx MR, LV systolic dysfunction EF 30-35% persistent afib with decompensation of sHF Subjective Update: She felt much better, and comfortable to go home today Functional Status: Reports: Pain Controlled - Review of Systems General: Reports: No Symptoms HEENT: Reports: No Symptoms Pulmonary: Reports: No Symptoms, Shortness of Breath Cardiovascular: Reports: No Symptoms Gastrointestinal: Reports: No Symptoms Genitourinary: Reports: No Symptoms Musculoskeletal: Reports: No Symptoms Skin: Reports: No Symptoms Neurological: Reports: No Symptoms Psychiatric: Reports: No Symptoms - Patient Data Vitals - Most Recent: Last Vital Signs Temp 36.9 C 08/25/17 08:00 Pulse 83 08/25/17 08:00 Resp 18 08/25/17 08:00 BP 117/62 08/25/17 08:00 Pulse Ox 94 L 08/25/17 08:00 Weight - Most Recent: 65.8 kg I&O - Last 24 Hours: Intake & Output 08/24/17 08/25/17 08/25/17 22:59 06:59 14:59 Intake Total 580 480 Output Total 800 1060 Balance -220 -580 Lab Results Last 24 Hours: Laboratory Results - last 24 hr 08/25/17 08/25/17 08/25/17 Range/Units 06:07 06:07 06:07 WBC 7.96 (4.0-11.0) K/uL RBC 5.04 (4.30-5.90) M/uL Hgb 14.6 (12.0-16.0) g/dL Hct 45.6 (36.0-46.0) % MCV 90.5 (80.0-98.0) fL MCH 29.0 (27.0-32.0) pg MCHC 32.0 (31.0-37.0) g/dL RDW Std Deviation 49.6 (28.0-62.0) fl RDW Coeff of Shaun 15 (11.0-15.0) % Plt Count 222 (150-400) K/uL MPV 9.70 (7.40-12.00) fL Neut % (Auto) 42.6 L (48.0-80.0) % Lymph % (Auto) 45.7 H (16.0-40.0) % [place] % (Auto) 7.8 (0.0-15.0) % Eos % (Auto) 3.4 (0.0-7.0) % Baso % (Auto) 0.5 (0.0-1.5) % Neut # (Auto) 3.4 (1.4-5.7) K/uL Lymph # (Auto) 3.6 H (0.6-2.4) K/uL [place] # (Auto) 0.6 (0.0-0.8) K/uL Eos # (Auto) 0.3 (0.0-0.7) K/uL Baso # (Auto) 0.0 (0.0-0.1) K/uL Nucleated RBC % 0.0 /100WBC Nucleated RBCs # 0 K/uL INR 3.04 H (0.86-1.11) Sodium 139 (136-146) mmol/L Potassium 4.2 (3.5-5.1) mmol/L Chloride 97 L (98-110) mmol/L Carbon Dioxide 32 H (21-31) mmol/L BUN 27 H (6.0-23.0) mg/dL Creatinine 0.9 (0.6-1.5) mg/dL Est Cr Clr Drug Dosing 43.57 mL/min Estimated GFR (MDRD) > 60.0 ml/min Glucose 107 (60-110) mg/dL Calcium 9.3 (8.8-10.8) mg/dL Magnesium 1.9 (1.5-2.3) mEq/L Med Orders - Current: Current Medications Cyclobenzaprine HCl (Flexeril) 10 mg PO BEDTIME [facility] Last Admin: 08/24/17 21:07 Dose: 10 mg Duloxetine HCl (Cymbalta) 60 mg PO BEDTIME [facility] Last Admin: 08/24/17 21:07 Dose: 60 mg Furosemide (Lasix) 40 mg IVPUSH BID@0800,1700 [facility] Last Admin: 08/25/17 08:18 Dose: 40 mg Lisinopril (Prinivil) 5 mg PO BEDTIME [facility] Last Admin: 08/24/17 21:06 Dose: 5 mg Methadone HCl (Methadone) 10 mg PO TID [facility] Last Admin: 08/25/17 05:58 Dose: 10 mg Metoprolol Tartrate (Lopressor) 50 mg PO TID [facility] Last Admin: 08/25/17 05:57 Dose: 50 mg Omeprazole (Omeprazole) 20 mg PO BIDAC [facility] Last Admin: 08/25/17 07:16 Dose: 20 mg Ondansetron HCl (Zofran) 4 mg IVPUSH Q4H PRN PRN Reason: Nausea Polyethylene Glycol (Miralax) 17 gm PO DAILY [facility] Last Admin: 08/25/17 08:21 Dose: 17 gm Spironolactone (Aldactone) 12.5 mg PO DAILY [facility] Last Admin: 08/25/17 08:21 Dose: 12.5 mg Tramadol HCl (Ultram) 50 mg PO Q8H PRN PRN Reason: Pain Last Admin: 08/22/17 16:04 Dose: 50 mg Warfarin Sodium (Coumadin) 6 mg PO DAILY@1400 [facility] Last Admin: 08/24/17 13:11 Dose: 6 mg Discontinued Medications Albuterol/Ipratropium (Duoneb 3.0-0.5 Mg/3 Ml) 3 ml NEB ONETIME ONE Stop: 08/22/17 10:13 Last Admin: 08/22/17 10:43 Dose: 3 ml Aspirin (Aspirin) 324 mg PO ONETIME ONE Stop: 08/22/17 10:51 Last Admin: 08/22/17 11:08 Dose: 324 mg Duloxetine HCl (Cymbalta) 60 mg PO DAILY [facility] Furosemide (Lasix) 20 mg IVPUSH NOW ONE Stop: 08/22/17 11:29 Last Admin: 08/22/17 11:41 Dose: 20 mg Furosemide (Lasix) 40 mg IVPUSH NOW ONE Stop: 08/22/17 11:41 Last Admin: 08/22/17 11:50 Dose: 40 mg Sodium Chloride (Normal Saline) 1,000 mls @ 125 mls/hr IV STAT [facility] Last Admin: 08/22/17 11:16 Dose: 125 mls/hr Magnesium Sulfate 4 gm/ Premix 100 mls @ 50 mls/hr IV ONETIME ONE Stop: 08/23/17 09:57 Last Admin: 08/23/17 08:33 Dose: 50 mls/hr Influenza Virus Vaccine (Pharmacy To Dose - Influenza Vaccine) 1 each IM ONETIME ONE Stop: 08/22/17 13:44 Influenza Virus Vaccine (Flulaval Quad [id number]) 60 mcg IM .ONCE ONE Stop: 08/22/17 14:01 Methylprednisolone Sodium Succinate (Solu-Medrol) 125 mg IVPUSH ONETIME ONE Stop: 08/22/17 10:13 Last Admin: 08/22/17 11:16 Dose: 125 mg Metoprolol Succinate (Toprol Xl) 50 mg PO BID [facility] Metoprolol Tartrate (Lopressor) 5 mg IVPUSH ONETIME ONE Stop: 08/22/17 16:37 Last Admin: 08/22/17 17:45 Dose: 5 mg Morphine Sulfate (Morphine) 2 mg IVPUSH ONETIME ONE Stop: 08/22/17 12:44 Last Admin: 08/22/17 15:54 Dose: Not Given Potassium Chloride (Klor-Con M20) 40 meq PO ONETIME ONE Stop: 08/23/17 07:59 Last Admin: 08/23/17 08:31 Dose: 40 meq Warfarin Sodium (Coumadin Ask) 1 each PO ONETIME ONE Stop: 08/22/17 14:12 Last Admin: 08/22/17 15:12 Dose: Not Given Warfarin Sodium (Coumadin Ask) 1 each PO DAILY@1400 [place] Warfarin Sodium (Coumadin) 6 mg PO DAILY@1400 [place] - Exam General: Alert, Oriented HEENT: Pupils Equal, Pupils Reactive, Scleral Icterus Neck: Supple, JVD Lungs: Rales Cardiovascular: Irregular Rhythm GI/Abdominal Exam: Normal Bowel Sounds, Soft, Non-Tender (Female) Exam: Normal External Exam Back Exam: Normal Inspection, Full Range of Motion Extremities: Pedal Edema EKG INTERPRETATION Rhythm: A-Fib - Problem List Review Problem List Initiated/Reviewed/Updated: Yes - Plan Plan:: 67F COPD HTN s/p AVR hx MR, LV systolic dysfunction EF 30-35% persistent afib with decompensation of sHF 1. Acute on chronic CHF: continue lasix 40 IV this morning, metoprolol 50 TID, lisinopril 5, will need ischemic work up as outpatient, continue aldactone 12.5 daily, she will be discharged with lasix 40 BID 2. Hx aortic valve replacement: Continue Coumadin 3. Chronic pain: Continue Methadone and Ultram PRN. she will be probably discharged today, will see her in 2 weeks
[2017-08-25] MEDS ORDERED: FLU Vacc QS 2017-18 (36mos UP)/PF 60 MCG/0.5 ML Syringe IM ONE (09:45)
== END 2017-08-25 10:15 | disposition home or self-care (01) | DRG 292 ==
LOC: MW.ED 10:11 → MW.MS 12:30 → UNDODISIN 08-25 10:15
PROVIDERS: ADMIT Family Medicine; ATTEND Family Medicine
PROC: 3E0234Z Introduction of Serum, Toxoid and Vaccine into Muscle, Percutaneous Approach (ICD-10-PCS; principal; 2017-08-25)
DX: I50.9 Heart failure, unspecified (principal); I10 Essential (primary) hypertension; I50.40 Unspecified combined systolic (congestive) and diastolic (congestive) heart failure; I42.9 Cardiomyopathy, unspecified; R06.09 Other forms of dyspnea; R07.9 Chest pain, unspecified; I48.0 Paroxysmal atrial fibrillation; G89.4 Chronic pain syndrome; J44.9 Chronic obstructive pulmonary disease, unspecified; K21.9 Gastro-esophageal reflux disease without esophagitis; F17.200 Nicotine dependence, unspecified, uncomplicated; F41.8 Other specified anxiety disorders; Z79.899 Other long term (current) drug therapy; Z86.73 Personal history of transient ischemic attack (TIA), and cerebral infarction without residual deficits; Z95.2 Presence of prosthetic heart valve; Z79.01 Long term (current) use of anticoagulants; Z85.3 Personal history of malignant neoplasm of breast; Z23 Encounter for immunization
CPT/HCPCS: 36415; 71010; 80053; 83735; 83880; 84484; 85025; 85610; 93005; 94640; 96361; 96374; 96375; 99285; A9270; J1940 ×2; J2930; J7040; 36410; 80048; 81001; 90686; 99283; G0008; J3475

== ENCOUNTER 2017-08-31 10:00 | Emergency (ER) | payer MEDICARE, OTHER ==
[2017-08-31] MEDS ORDERED: Diltiazem 25 MG/5 ML SDV IVPUSH ONE (10:14)
[2017-08-31] MEDS ORDERED: Sodium Chloride 0.9% 10 ML Syringe FLUSH PRN (10:14)
[2017-08-31] MEDS ORDERED: Sodium Chloride 0.9% 2.5 ML Syringe FLUSH PRN (10:14)
--- NOTE | 2017-08-31 10:28 | EDM.PDOC ---
ED HPI GENERAL MEDICAL PROBLEM - General Chief Complaint: Cardiovascular Problem Stated Complaint: HEART TROUBLE Time Seen by Provider: 08/31/17 10:21 Source of Information: Reports: Patient History Limitations: Reports: No Limitations - History of Present Illness INITIAL COMMENTS - FREE TEXT/NARRATIVE: History of present illness: []She awoke this morning sweaty and short of breath. She denies any chest pain. He has mitral valve disease scheduled for an angiogram this week. She saw her primary care doctor yesterday who increased her metoprolol he also took her off her methadone that she has been on for chronic arthritis. Review of systems: As per history of present illness and below otherwise all systems reviewed and negative. Past medical history: As per history of present illness and as reviewed below otherwise noncontributory. Surgical history: As per history of present illness and as reviewed below otherwise noncontributory. Social history: No reported history of drug or alcohol abuse. Family history: As per history of present illness and as reviewed below otherwise noncontributory. Physical exam: General: Well developed, well nourished in NAD HEENT: Atraumatic, normocephalic, pupils reactive, negative for conjunctival pallor or scleral icterus, mucous membranes moist, throat clear, neck supple, nontender, trachea midline. Lungs: Clear to auscultation, breath sounds equal bilaterally, chest nontender. Heart: S1S2, regular, negative for clicks, rubs, or JVD. Abdomen: Soft, nondistended, nontender. Negative for masses or hepatosplenomegaly. Negative for costovertebral tenderness. Pelvis: Stable nontender. Genitourinary: Deferred. Rectal: Deferred. Extremities: Atraumatic, negative for cords or calf pain. Neurovascular unremarkable. Neuro: Awake, alert, oriented. Cranial nerves II through XII unremarkable. Cerebellum unremarkable. Motor and sensory unremarkable throughout. Exam nonfocal. Diagnostics: []Chest x-ray and labs showing elevated INR otherwise normal Therapeutics: []Diltiazem was started one dose of IV control her rate from 140s to 70s Impression: []A. fib with rapid ventricular rate without congestive heart failure. Dr. Zabala was consulted and evaluated patient in the ED. Plan: []Continue current meds follow up for your angiogram as directed this week. Definitive disposition and diagnosis as appropriate pending reevaluation and review of above. - Related Data Allergies Allergy/AdvReac Type Severity Reaction Status Date / Time No Known Allergies Allergy Verified 08/31/17 10:09 Home Meds: Home Meds Cyclobenzaprine [Flexeril] 10 mg PO BEDTIME 11/28/16 [History] Warfarin [Coumadin] 6 mg PO BEDTIME 11/28/16 [History] DULoxetine HCl [Duloxetine HCl] 60 mg PO BEDTIME 07/18/17 [History] Methadone 10 mg PO TID 07/18/17 [History] traMADol [Ultram] 50 mg PO Q8H #90 tablet 07/23/17 [Rx] Lisinopril [Prinivil] 5 mg PO BEDTIME 08/22/17 [History] Polyethylene Glycol 3350 [MiraLAX] 1 package PO DAILY 08/22/17 [History] atorvaSTATin [Lipitor] 1 tab PO DAILY 08/22/17 [History] Furosemide [Lasix] 40 mg PO BID #60 tablet 08/24/17 [Rx] Metoprolol Tartrate [Lopressor] 50 mg PO TID tablet 08/24/17 [Rx] Omeprazole 20 mg PO BIDAC cap.cr 08/24/17 [Rx] Spironolactone [Aldactone] 12.5 mg PO DAILY tablet 08/24/17 [Rx] Past Medical History HEENT History: Reports: Other (See Below) Other HEENT History: no teeth or dentures Cardiovascular History: Reports: Afib, Heart Failure, Heart Valve Replacement, Hypertension Respiratory History: Reports: COPD Gastrointestinal History: Reports: GERD Other Gastrointestinal History: acid reflux Genitourinary History: Reports: None [employer] History: Reports: Musculoskeletal History: Reports: Arthritis, Back Pain, Chronic, Other (See Below) Other Musculoskeletal History: scoliosis, bulging discs, carpal tunnel, restless leg Neurological History: Reports: TIA Psychiatric History: Reports: Anxiety, Depression Endocrine/Metabolic History: Reports: None Hematologic History: Reports: Anticoagulation Therapy Immunologic History: Reports: None Oncologic (Cancer) History: Reports: Breast Other Oncologic History: right breast ca Dermatologic History: Reports: None - Past Surgical History Head Surgeries/Procedures: Reports: None Cardiovascular Surgical History: Reports: Valve Replacement, Other (See Below) GI Surgical History: Reports: Bariatric Procedure, Cholecystectomy, Other (See Below) Female Surgical History: Reports: Tubal Ligation Musculoskeletal Surgical History: Reports: Carpal Tunnel, Other (See Below) Oncologic Surgical History: Reports: Biopsy of Breast, Lumpectomy Social & Family History - Family History Family Medical History: Noncontributory - Tobacco Use Smoking Status *Q: Never Smoker Years of Tobacco use: 50 Packs/Tins Daily: 0.5 Used Tobacco, but Quit: Yes Month Tobacco Last Used: July Second Hand Smoke Exposure: No - Caffeine Use Caffeine Use: Reports: None Caffeine Use Comment: 3-4 cups a day - Recreational Drug Use Recreational Drug Use: No - Living Situation & Occupation Living situation: Reports: , with Family Occupation: Retired ED ROS GENERAL - Review of Systems Review Of Systems: See Below (See history of present illness) ED EXAM, GENERAL - Physical Exam Exam: See Below (See history of present illness) Course - Vital Signs Last Recorded V/S: Last Vital Signs Temp 36.1 C 08/31/17 10:09 Pulse 67 08/31/17 12:05 Resp 18 08/31/17 12:05 BP 98/42 L 08/31/17 12:05 Pulse Ox 96 08/31/17 12:05 - Orders/Labs/Meds Orders: Active Orders 24 hr Category Date Time Status EKG 12 Lead [EKG Documentation Completion] [RC] STAT Care 08/31/17 10:11 Active EKG Documentation Completion [RC] STAT Care 08/31/17 10:14 Active Saline Lock Insert [OM.PC] Stat Oth 08/31/17 10:14 Ordered Labs: Laboratory Tests 08/31/17 08/31/17 08/31/17 Range/Units 10:54 10:54 10:54 WBC 13.29 H (4.0-11.0) K/uL RBC 4.35 (4.30-5.90) M/uL Hgb 12.6 (12.0-16.0) g/dL Hct 39.5 (36.0-46.0) % MCV 90.8 (80.0-98.0) fL MCH 29.0 (27.0-32.0) pg MCHC 31.9 (31.0-37.0) g/dL RDW Std Deviation 49.4 (28.0-62.0) fl RDW Coeff of Shaun 15 (11.0-15.0) % Plt Count 269 (150-400) K/uL MPV 10.10 (7.40-12.00) fL Neut % (Auto) 59.2 (48.0-80.0) % Lymph % (Auto) 33.9 (16.0-40.0) % [place] % (Auto) 5.6 (0.0-15.0) % Eos % (Auto) 0.9 (0.0-7.0) % Baso % (Auto) 0.4 (0.0-1.5) % Neut # (Auto) 7.9 H (1.4-5.7) K/uL Lymph # (Auto) 4.5 H (0.6-2.4) K/uL [place] # (Auto) 0.8 (0.0-0.8) K/uL Eos # (Auto) 0.1 (0.0-0.7) K/uL Baso # (Auto) 0.1 (0.0-0.1) K/uL Nucleated RBC % 0.0 /100WBC Nucleated RBCs # 0 K/uL INR (0.86-1.11) Sodium 140 (136-146) mmol/L Potassium 4.3 (3.5-5.1) mmol/L Chloride 100 (98-110) mmol/L Carbon Dioxide 29 (21-31) mmol/L BUN 47 H (6.0-23.0) mg/dL Creatinine 1.1 (0.6-1.5) mg/dL Est Cr Clr Drug Dosing TNP Estimated GFR (MDRD) 49.5 ml/min Glucose 86 (60-110) mg/dL Calcium 9.1 (8.8-10.8) mg/dL Total Bilirubin 0.5 (0.1-1.5) mg/dL AST 16 (5-40) IU/L ALT 15 (8-54) IU/L Alkaline Phosphatase 79 (40-150) Troponin I < 0.10 (0.0-0.29) NG/ML B-Natriuretic Peptide 212 H (<100) PG/ML Total Protein 6.8 (6.0-8.0) g/dL Albumin 3.8 (3.4-4.8) g/dL Globulin 3.0 (2.0-3.5) g/dL Albumin/Globulin Ratio 1.3 (1.3-2.8) 08/31/ Range/Units 10:54 WBC (4.0-11.0) K/uL RBC (4.30-5.90) M/uL Hgb (12.0-16.0) g/dL Hct (36.0-46.0) % MCV (80.0-98.0) fL MCH (27.0-32.0) pg MCHC (31.0-37.0) g/dL RDW Std Deviation (28.0-62.0) fl RDW Coeff of Shaun (11.0-15.0) % Plt Count (150-400) K/uL MPV (7.40-12.00) fL Neut % (Auto) (48.0-80.0) % Lymph % (Auto) (16.0-40.0) % [place] % (Auto) (0.0-15.0) % Eos % (Auto) (0.0-7.0) % Baso % (Auto) (0.0-1.5) % Neut # (Auto) (1.4-5.7) K/uL Lymph # (Auto) (0.6-2.4) K/uL [place] # (Auto) (0.0-0.8) K/uL Eos # (Auto) (0.0-0.7) K/uL Baso # (Auto) (0.0-0.1) K/uL Nucleated RBC % /100WBC Nucleated RBCs # K/uL INR 3.33 H (0.86-1.11) Sodium (136-146) mmol/L Potassium (3.5-5.1) mmol/L Chloride (98-110) mmol/L Carbon Dioxide (21-31) mmol/L BUN (6.0-23.0) mg/dL Creatinine (0.6-1.5) mg/dL Est Cr Clr Drug Dosing Estimated GFR (MDRD) ml/min Glucose (60-110) mg/dL Calcium (8.8-10.8) mg/dL Total Bilirubin (0.1-1.5) mg/dL AST (5-40) IU/L ALT (8-54) IU/L Alkaline Phosphatase (40-150) Troponin I (0.0-0.29) NG/ML B-Natriuretic Peptide (<100) PG/ML Total Protein (6.0-8.0) g/dL Albumin (3.4-4.8) g/dL Globulin (2.0-3.5) g/dL Albumin/Globulin Ratio (1.3-2.8) Meds: Medications Discontinued Medications Generic Name Dose Route Start Last Admin Trade Name Freq PRN Reason Stop Dose Admin Diltiazem HCl 20 mg 08/31/17 10:14 08/31/17 10:52 Diltiazem IVPUSH 08/31/17 10:15 10 mg ONETIME ONE Administration Sodium Chloride 10 ml 08/31/17 10:14 08/31/17 11:11 Saline Flush FLUSH 10 ml ASDIRECTED PRN Administration Keep Vein Open Sodium Chloride 2.5 ml 08/31/17 10:14 08/31/17 11:11 Saline Flush FLUSH 2.5 ml ASDIRECTED PRN Administration Keep Vein Open Departure - Departure Time of Disposition: 12:05 Disposition: Home, Self-Care 01 Condition: Good Clinical Impression: Atrial fibrillation with RVR Instructions: Atrial Fibrillation, [id number] Referrals: PCP,Unknown [Primary Care Provider] - 2 Days (Keep appointment as scheduled on Tuesday. ) Forms: ED Department Discharge Additional Instructions: The following information is given to patients seen in the emergency department who are being discharged to home. This information is to outline your options for follow-up care. We provide all patients seen in our emergency department with a follow-up referral. The need for follow-up, as well as the timing and circumstances, are variable depending upon the specifics of your emergency department visit. If you don't have a primary care physician on staff, we will provide you with a referral. We always advise you to contact your personal physician following an emergency department visit to inform them of the circumstance of the visit and for follow-up with them and/or the need for any referrals to a consulting specialist. The emergency department will also refer you to a specialist when appropriate. This referral assures that you have the opportunity for follow-up care with a specialist. All of these measure are taken in an effort to provide you with optimal care, which includes your follow-up. Under all circumstances we always encourage you to contact your private physician who remains a resource for coordinating your care. When calling for follow-up care, please make the office aware that this follow-up is from your recent emergency room visit. If for any reason you are refused follow-up, please contact the [facility] at and asked to speak to the emergency department charge nurse. Follow-up the primary care and her doctor for angiogram later this week as scheduled. If symptoms worsen or change [facility] [address] [place] [id number] - My Orders Last 24 Hours: My Active Orders 08/31/17 10:11 EKG 12 Lead [EKG Documentation Completion] [RC] STAT 08/31/17 10:14 EKG Documentation Completion [RC] STAT Saline Lock Insert [OM.PC] Stat - Assessment/Plan Last 24 Hours: My Active Orders 08/31/17 10:11 EKG 12 Lead [EKG Documentation Completion] [RC] STAT 08/31/17 10:14 EKG Documentation Completion [RC] STAT Saline Lock Insert [OM.PC] Stat
--- NOTE | 2017-08-31 11:23 | CR ---
EXAMINATION: Portable chest radiograph. HISTORY: Shortness of breath. FINDINGS: The trachea is midline. The cardiomediastinal silhouette is within normal limits. No pulmonary infilt rates, effusions or pneumothorax. Median sternotomy wires are noted with evidence of aortic valvular replacement. Degenerative changes noted within the shoulders bilaterally, right greater than left. Otherwise the o sseous structures appear osteopenic. IMPRESSION: No acute cardiopulmonary process.
[2017-08-31 11:29] LABS: CHLORIDE,CL 100 mmol/L (98-110); SODIUM,NA 140 mmol/L (136-146)
[2017-08-31 12:10] VITALS: BP 98/42
== END 2017-08-31 12:07 | disposition home or self-care (01) ==
LOC: MW.ED 10:00
DX: I48.91 Unspecified atrial fibrillation (principal); I11.0 Hypertensive heart disease with heart failure; I50.9 Heart failure, unspecified; J44.9 Chronic obstructive pulmonary disease, unspecified; K21.9 Gastro-esophageal reflux disease without esophagitis; Z79.899 Other long term (current) drug therapy
CPT/HCPCS: 36415; 71010; 80053; 83880; 84484; 85025; 85610; 93005; 96374; 99285; J3490; 99283

== ENCOUNTER 2017-09-24 20:27 | Emergency (ER) | payer MEDICARE, OTHER ==
[2017-09-24] MEDS ORDERED: Sodium Chloride 0.9% 2.5 ML Syringe FLUSH PRN (20:54)
[2017-09-24] MEDS ORDERED: HYDROmorphone 2 MG/ML Syringe IVPUSH ONE (20:54)
[2017-09-24] MEDS ORDERED: Sodium Chloride 0.9% 10 ML Syringe FLUSH PRN (20:54)
--- NOTE | 2017-09-24 20:59 | EDM.PDOC ---
ED HPI GENERAL MEDICAL PROBLEM - General Chief Complaint: Respiratory Problem Stated Complaint: PT HAS DIFFICULTY BREATHING Time Seen by Provider: 09/24/17 20:42 - History of Present Illness INITIAL COMMENTS - FREE TEXT/NARRATIVE: HISTORY AND PHYSICAL: History of present illness: The patient is a 67-year-old female who follows with Dr. Aguilera in the clinic as well as our marine insurance claim examiner Dr. Zabala and has a long-standing history of A. fib with RVR aortic valve replacement CHF hypercholesterolemia hypertension chronic pain syndrome and who was seen a week ago in the clinic and presents with complaints of progressive shortness of breath which seems to be worse today. Patient says that she had a an angiogram at [facility] in [place] 10 days ago which showed no blockages and her aortic valve replacement is mechanical. She says that she felt short of breath even before the angiogram but today it seemed to be worse when she is going up a flight of stairs. She says her Lasix was adjusted and she is on 40 mg twice a day 2 months ago and that is helped with her leg swelling and she has no leg swelling or pain now. Patient denies any chest pain has episodic chronic abdominal pain for which she is not concerned about and has had no fevers chills cough or upper respiratory symptoms. She's had no vomiting or diarrhea. The patient says currently she doesn't feel short of breath at rest but is worse when she does activities. The patient is also concerned about her chronic pain and says that when she met with Dr. Aguilera she discuss with him going on methadone and coming off the opioids and he said that he was unable to write for that. He refilled her prescriptions and she says that she doesn't want to take those meds for her chronic pain and she got frustrated and anxious and she flushed them down the toilet; at that time she stated that she wanted to go "cold turkey".. She says she last took a pain pill at 2 PM and she's feeling the pain coming back and feeling shaky because of it. She has now decided she does not want to go cold turkey. She does not have a specific pain management doctor and sees Dr. Aguilera for that service Review of systems: As per history of present illness and below otherwise all systems reviewed and negative. Past medical history: As per history of present illness and as reviewed below otherwise noncontributory. Surgical history: As per history of present illness and as reviewed below otherwise noncontributory. Social history: No reported history of drug or alcohol abuse. Family history: As per history of present illness and as reviewed below otherwise noncontributory. Physical exam: Gen.: Well-developed well-nourished female who speaks clearly and easily without breathlessness and vital signs have been noted by me. HEENT: Atraumatic, normocephalic, negative for conjunctival pallor or scleral icterus, mucous membranes moist, throat clear, neck supple, nontender, trachea midline. Lungs: Clear to auscultation, breath sounds equal bilaterally, chest nontender. There is no work of breathing or sensory muscle use and there is no stridor rales or wheezing Heart: S1S2, regular rhythm slightly irregular rate on my evaluation and there is a loud click heard at the left sternal border consistent with her mechanical aortic valve. Abdomen: Soft, nondistended, some mild diffuse abdominal tenderness more on the right side which the patient states is chronic and she is not concerned about it. Negative for masses or hepatosplenomegaly. There is hypoactive bowel sounds and no tympany on percussion and no rebound or guarding Pelvis: Stable nontender. Genitourinary: Deferred. Rectal: Deferred. Extremities: Atraumatic, negative for cords or calf pain. Neurovascular unremarkable. No pedal edema or leg asymmetry Neuro: Awake, alert, oriented. Cranial nerves II through XII unremarkable. Cerebellum unremarkable. Motor and sensory unremarkable throughout. Exam nonfocal. Diagnostics: EKG CBC CMP BNP INR troponin UA chest x-ray Therapeutics: IV O2 monitor Dilaudid for her chronic pain per her request Please note that when the nurse went in to start her IV the patient refused the IV and only wants a lab draw. I will cancel a dialogue and write for oral Percocet. We attempted to get the heart catheter results from [facility] in [place] that was performed 10 days ago and according to the nursing sulfuric acid plant supervisor there it does not appear to have been dictated that she can access it. Patient tells me that it was normal and they did not do any stenting or angioplasty. Please note that the hemoglobin today of 8.4 was noted by me and when compared to prior lab tests it has dropped since August 31 when it was 12.6. The patient has had it checked on September 05 and it was 8.9 and September 12 and it was 8.6. I discussed these tests with the patient as it seems to be trickling down and I want to know what her provider's plan was for that. I discussed with the patient her testing results and she states that Dr. Zabala wanted to potentially do a blood transfusion as an outpatient and she refused and she currently states she does not want to receive blood. She is aware of my concerns and says that she will follow-up with him and her provider in the clinic Dr. Aguilera. She denies any rectal bleeding urine bleeding bloody noses. I did also discuss with her her INR of 4.14 and she says she did take her Coumadin this evening but she will hold the next dose and recheck it with her machine at home. She says she does not want to have a prescription for a lab draw to be sent to Dr. Aguilera she will just follow-up with him. The patient is very focused and adamant on doing her healthcare the way she would like to and is not very open to my suggestions but she is more pleasant now. She is aware of all testing results as his family member at the bedside. She does not want further evaluation and wants to go home. The patient says she does not want any pain medications for home and would rather have something for anxiety so I will give her a few Ativan to try at home via [facility]. I have advised her that she needs to discuss with Dr. Aguilera any further prescriptions and she is agreeable. Impression: Dyspnea acute on chronic stable, elevated INR with history of Coumadin use, anemia with history of recent anemia. Definitive disposition and diagnosis as appropriate pending reevaluation and review of above. Lower Back Pain Score (Numeric/FACES): 7 - Related Data Allergies Allergy/AdvReac Type Severity Reaction Status Date / Time No Known Allergies Allergy Verified 09/24/17 20:37 Home Meds: Home Meds Warfarin [Coumadin] 6 mg PO BEDTIME 11/28/16 [History] DULoxetine HCl [Duloxetine HCl] 60 mg PO BEDTIME 07/18/17 [History] traMADol [Ultram] 50 mg PO Q8H #90 tablet 07/23/17 [Rx] Lisinopril [Prinivil] 10 mg PO BEDTIME 08/22/17 [History] Polyethylene Glycol 3350 [MiraLAX] 17 gm PO DAILY 08/22/17 [History] Metoprolol Tartrate [Lopressor] 50 mg PO TID tablet 08/24/17 [Rx] Spironolactone [Aldactone] 12.5 mg PO DAILY tablet 08/24/17 [Rx] Furosemide [Lasix] 80 mg PO BID 09/24/17 [History] Pantoprazole [ProTONIX] 40 mg PO DAILY 09/24/17 [History] Past Medical History HEENT History: Reports: Impaired Vision, Other (See Below) Other HEENT History: no teeth or dentures Cardiovascular History: Reports: Afib, Heart Failure, Heart Valve Replacement, Hypertension Respiratory History: Reports: COPD Gastrointestinal History: Reports: GERD Other Gastrointestinal History: acid reflux Genitourinary History: Reports: None ELEVATORS INSPECTOR History: Reports: Musculoskeletal History: Reports: Arthritis, Back Pain, Chronic, Other (See Below) Other Musculoskeletal History: scoliosis, bulging discs, carpal tunnel, restless leg Neurological History: Reports: TIA Psychiatric History: Reports: Anxiety, Depression Endocrine/Metabolic History: Reports: None Hematologic History: Reports: Anticoagulation Therapy Immunologic History: Reports: None Oncologic (Cancer) History: Reports: Breast Other Oncologic History: right breast ca Dermatologic History: Reports: None - Past Surgical History Head Surgeries/Procedures: Reports: None HEENT Surgical History: Reports: Tonsillectomy Cardiovascular Surgical History: Reports: Valve Replacement, Other (See Below) Respiratory Surgical History: Reports: None GI Surgical History: Reports: Appendectomy, Bariatric Procedure, Cholecystectomy Female Surgical History: Reports: Section, Tubal Ligation Neurological Surgical History: Reports: None Musculoskeletal Surgical History: Reports: Carpal Tunnel Oncologic Surgical History: Reports: Biopsy of Breast, Lumpectomy Social & Family History - Family History Family Medical History: Noncontributory - Tobacco Use Smoking Status *Q: Former Smoker Years of Tobacco use: 50 Packs/Tins Daily: 0.5 Used Tobacco, but Quit: Yes Month Tobacco Last Used: 2 months ago Second Hand Smoke Exposure: No - Caffeine Use Caffeine Use: Reports: Coffee Caffeine Use Comment: 3-4 cups a day - Recreational Drug Use Recreational Drug Use: No - Living Situation & Occupation Living situation: Reports: , with Family Occupation: Retired [employer] - Review of Systems Review Of Systems: ROS reveals no pertinent complaints other than HPI. ED EXAM, GENERAL - Physical Exam Exam: See Below (See dictation) Course - Vital Signs Last Recorded V/S: Last Vital Signs Temp 35.8 C 09/24/17 20:33 Pulse 87 09/24/17 20:33 Resp 22 H 09/24/17 20:33 BP Pulse Ox 100 09/24/17 20:33 - Orders/Labs/Meds Orders: Active Orders 24 hr Category Date Time Status Cardiac Monitoring [RC] . DIRECTED Care 09/24/17 20:52 Active EKG Documentation Completion [RC] STAT Care 09/24/17 20:52 Active Oxygen Therapy, ED [RC] ASDIRECTED Care 09/24/17 20:52 Active Pulse Oximetry [RC] ASDIRECTED Care 09/24/17 20:52 Active Chest 1V Frontal [CR] Stat Exams 09/24/17 20:53 Taken UA W/MICROSCOPIC [URIN] Stat Lab 09/24/17 20:53 Uncollected Sodium Chloride 0.9% [Saline Flush] Med 09/24/17 20:54 Active 10 ml FLUSH ASDIRECTED PRN Sodium Chloride 0.9% [Saline Flush] Med 09/24/17 20:54 Active 2.5 ml FLUSH ASDIRECTED PRN Saline Lock Insert [OM.PC] Stat Oth 09/24/17 20:52 Ordered Medication Orders Sodium Chloride (Saline Flush) 10 ml FLUSH ASDIRECTED PRN PRN Reason: Keep Vein Open Sodium Chloride (Saline Flush) 2.5 ml FLUSH ASDIRECTED PRN PRN Reason: Keep Vein Open Labs: Laboratory Tests 09/24/17 09/24/17 09/24/17 Range/Units 21:27 21:27 21:27 WBC 5.63 (4.0-11.0) K/uL RBC 3.16 L (4.30-5.90) M/uL Hgb 8.4 L (12.0-16.0) g/dL Hct 27.8 L (36.0-46.0) % MCV 88.0 (80.0-98.0) fL MCH 26.6 L (27.0-32.0) pg MCHC 30.2 L (31.0-37.0) g/dL RDW Std Deviation 48.1 (28.0-62.0) fl RDW Coeff of Shaun 15 (11.0-15.0) % Plt Count 308 (150-400) K/uL MPV 9.00 (7.40-12.00) fL Neut % (Auto) 52.8 (48.0-80.0) % Lymph % (Auto) 37.7 (16.0-40.0) % Rowan % (Auto) 7.6 (0.0-15.0) % Eos % (Auto) 1.4 (0.0-7.0) % Baso % (Auto) 0.5 (0.0-1.5) % Neut # (Auto) 3.0 (1.4-5.7) K/uL Lymph # (Auto) 2.1 (0.6-2.4) K/uL Rowan # (Auto) 0.4 (0.0-0.8) K/uL Eos # (Auto) 0.1 (0.0-0.7) K/uL Baso # (Auto) 0.0 (0.0-0.1) K/uL Nucleated RBC % 0.0 /100WBC Nucleated RBCs # 0 K/uL INR 4.14 H (0.86-1.11) Sodium 143 (136-146) mmol/L Potassium 3.5 (3.5-5.1) mmol/L Chloride 106 (98-110) mmol/L Carbon Dioxide 27 (21-31) mmol/L BUN 32 H (6.0-23.0) mg/dL Creatinine 1.0 (0.6-1.5) mg/dL Est Cr Clr Drug Dosing 39.21 mL/min Estimated GFR (MDRD) 55.3 ml/min Glucose 92 (60-110) mg/dL Calcium 9.3 (8.8-10.8) mg/dL Total Bilirubin 0.3 (0.1-1.5) mg/dL AST 14 (5-40) IU/L ALT 13 (8-54) IU/L Alkaline Phosphatase 67 (40-150) Troponin I < 0.10 (0.0-0.29) NG/ML B-Natriuretic Peptide (<100) PG/ML Total Protein 6.6 (6.0-8.0) g/dL Albumin 3.7 (3.4-4.8) g/dL Globulin 2.9 (2.0-3.5) g/dL Albumin/Globulin Ratio 1.3 (1.3-2.8) 09/24/17 Range/Units 21:27 WBC (4.0-11.0) K/uL RBC (4.30-5.90) M/uL Hgb (12.0-16.0) g/dL Hct (36.0-46.0) % MCV (80.0-98.0) fL MCH (27.0-32.0) pg MCHC (31.0-37.0) g/dL RDW Std Deviation (28.0-62.0) fl RDW Coeff of Shaun (11.0-15.0) % Plt Count (150-400) K/uL MPV (7.40-12.00) fL Neut % (Auto) (48.0-80.0) % Lymph % (Auto) (16.0-40.0) % Rowan % (Auto) (0.0-15.0) % Eos % (Auto) (0.0-7.0) % Baso % (Auto) (0.0-1.5) % Neut # (Auto) (1.4-5.7) K/uL Lymph # (Auto) (0.6-2.4) K/uL Rowan # (Auto) (0.0-0.8) K/uL Eos # (Auto) (0.0-0.7) K/uL Baso # (Auto) (0.0-0.1) K/uL Nucleated RBC % /100WBC Nucleated RBCs # K/uL INR (0.86-1.11) Sodium (136-146) mmol/L Potassium (3.5-5.1) mmol/L Chloride (98-110) mmol/L Carbon Dioxide (21-31) mmol/L BUN (6.0-23.0) mg/dL Creatinine (0.6-1.5) mg/dL Est Cr Clr Drug Dosing mL/min Estimated GFR (MDRD) ml/min Glucose (60-110) mg/dL Calcium (8.8-10.8) mg/dL Total Bilirubin (0.1-1.5) mg/dL AST (5-40) IU/L ALT (8-54) IU/L Alkaline Phosphatase (40-150) Troponin I (0.0-0.29) NG/ML B-Natriuretic Peptide 278 H (<100) PG/ML Total Protein (6.0-8.0) g/dL Albumin (3.4-4.8) g/dL Globulin (2.0-3.5) g/dL Albumin/Globulin Ratio (1.3-2.8) Meds: Medications Generic Name Dose Route Start Last Admin Trade Name Freq PRN Reason Stop Dose Admin Sodium Chloride 10 ml 09/24/17 20:54 Saline Flush FLUSH ASDIRECTED PRN Keep Vein Open Sodium Chloride 2.5 ml 09/24/17 20:54 Saline Flush FLUSH ASDIRECTED PRN Keep Vein Open Discontinued Medications Generic Name Dose Route Start Last Admin Trade Name Freq PRN Reason Stop Dose Admin Hydromorphone HCl 0.5 mg 09/24/17 20:54 09/24/17 21:23 Dilaudid IVPUSH 09/24/17 20:55 Not Given ONETIME ONE Oxycodone/Acetaminophen 1 tab 09/24/17 21:19 09/24/17 22:11 Percocet 325-7.5 Mg PO 09/24/17 21:20 1 tab ONETIME ONE Administration Departure - Departure Time of Disposition: 23:02 Disposition: Home, Self-Care 01 Condition: Good Clinical Impression: Elevated INR Dyspnea Qualifiers: Dyspnea type: unspecified Qualified Code(s): R06.00 - Dyspnea, unspecified Anemia Qualifiers: Anemia type: unspecified type Qualified Code(s): D64.9 - Anemia, unspecified - Discharge Information Referrals: PCP,None [Primary Care Provider] - Forms: ED Department Discharge Additional Instructions: The following information is given to patients seen in the emergency department who are being discharged to home. This information is to outline your options for follow-up care. We provide all patients seen in our emergency department with a follow-up referral. The need for follow-up, as well as the timing and circumstances, are variable depending upon the specifics of your emergency department visit. If you don't have a primary care physician on staff, we will provide you with a referral. We always advise you to contact your personal physician following an emergency department visit to inform them of the circumstance of the visit and for follow-up with them and/or the need for any referrals to a consulting specialist. The emergency department will also refer you to a specialist when appropriate. This referral assures that you have the opportunity for followup care with a specialist. All of these measure are taken in an effort to provide you with optimal care, which includes your followup. Under all circumstances we always encourage you to contact your private physician who remains a resource for coordinating your care. When calling for followup care, please make the office aware that this follow-up is from your recent emergency room visit. If for any reason you are refused follow-up, please contact the [facility] emergency department at and ask to speak to the emergency department charge nurse. [facility] Primary care- Internal Medicine and Family [address] [id number] Please contact the clinic on Tuesday morning to follow-up your blood count as well as her INR. Hold the next 2 doses of your Coumadin and have it rechecked as we discussed. Please call and follow-up with Dr. Aguilera and Dr. Zabala to rediscuss possible blood transfusion as indicated and your current symptoms as well as discussing pain management and reduction of pain medication. Please return to ER as needed and as discussed. - My Orders Last 24 Hours: My Active Orders 09/24/17 20:52 Cardiac Monitoring [RC] . DIRECTED EKG Documentation Completion [RC] STAT Oxygen Therapy, ED [RC] ASDIRECTED Pulse Oximetry [RC] ASDIRECTED Saline Lock Insert [OM.PC] Stat 09/24/17 20:53 Chest 1V Frontal [CR] Stat UA W/MICROSCOPIC [URIN] Stat 09/24/17 20:54 Sodium Chloride 0.9% [Saline Flush] 10 ml FLUSH ASDIRECTED PRN Sodium Chloride 0.9% [Saline Flush] 2.5 ml FLUSH ASDIRECTED PRN - Assessment/Plan Last 24 Hours: My Active Orders 09/24/17 20:52 Cardiac Monitoring [RC] . DIRECTED EKG Documentation Completion [RC] STAT Oxygen Therapy, ED [RC] ASDIRECTED Pulse Oximetry [RC] ASDIRECTED Saline Lock Insert [OM.PC] Stat 09/24/17 20:53 Chest 1V Frontal [CR] Stat UA W/MICROSCOPIC [URIN] Stat 09/24/17 20:54 Sodium Chloride 0.9% [Saline Flush] 10 ml FLUSH ASDIRECTED PRN Sodium Chloride 0.9% [Saline Flush] 2.5 ml FLUSH ASDIRECTED PRN
[2017-09-24] MEDS ORDERED: Acetaminophen/oxyCODONE 325-7.5 MG Tab PO ONE (21:19)
[2017-09-24 22:00] LABS: CHLORIDE,CL 106 mmol/L (98-110); SODIUM,NA 143 mmol/L (136-146)
[2017-09-24 23:06] VITALS: BP 111/50
--- NOTE | 2017-09-26 15:11 | CR ---
EXAM DATE: 09/24/17 PATIENT'S AGE: 67 Patient: REESE SHELDON Facility: [place], [place] Site . Site : 1950 Study: XRay Chest [id number]/18/2017 9:37:50 PM Ordering Physician: Ancelmo Weems Final Report: INDICATION: chest pain and shortness of breath. TECHNIQUE: Chest radiograph 1 view COMPARISON: 08/31/2017 FINDINGS: Mediastinum: The mediastinum is normal in appearance. Moderate stable cardiomegaly noted. Previous median sternotomy and coronary artery bypass grafting (CABG) noted. Lungs: Both lungs are clear but lung volumes are small. No sign of pleural effusion seen. No pneumothorax is identified. Bones: Unremarkable for age. Miscellaneous: Surgical clips from previous axillary dissection noted on the right. IMPRESSION: 1. No acute cardiopulmonary disease is seen. 2. Moderate stable cardiomegaly noted. Dictated by: Andrew Jc MD @ 09/24/2017 21:41:42 (Electronic Signature) Report Signed by Proxy. [facility]
== END 2017-09-24 23:13 | disposition home or self-care (01) ==
LOC: MW.ED 20:27
DX: R06.00 Dyspnea, unspecified (principal); D64.9 Anemia, unspecified; R79.1 Abnormal coagulation profile; I11.0 Hypertensive heart disease with heart failure; I50.9 Heart failure, unspecified; Z79.01 Long term (current) use of anticoagulants; Z79.899 Other long term (current) drug therapy; Z87.891 Personal history of nicotine dependence
CPT/HCPCS: 36415; 71010; 71010-26; 80053; 83880; 84484; 85025; 85610; 93005; 99282; 99285-25; A9270-GY

== ENCOUNTER 2017-09-25 10:29 | Emergency (ER) | payer MEDICARE, OTHER ==
--- NOTE | 2017-09-25 10:39 | EDM.PDOC ---
ED HPI GENERAL MEDICAL PROBLEM - General Stated Complaint: FALL Time Seen by Provider: 09/25/17 10:31 Source of Information: Reports: Patient, EMS History Limitations: Reports: No Limitations - History of Present Illness INITIAL COMMENTS - FREE TEXT/NARRATIVE: HISTORY AND PHYSICAL: History of present illness: Patient is a 67-year-old female who presents to the emergency room via EMS after falling out of bed this morning. She states she was getting up for the morning and had rolled out of bed landing on her left side. She is currently complaining of left rest/chest wall pain and left hip pain. She does have a long -standing history of chronic pain syndrome which she sees Dr. Aguilera for. She denies hitting her head or any loss of consciousness. When EMS arrived they state that she was up ambulating in her room and was able to walk to the cot for transfer. She denies any chest pain, shortness of breath, headache, fever or chills. She denies any abdominal pain, nausea, vomiting or diarrhea. Patient has a past medical history of restless leg syndrome, hypertension, elevated cholesterol, atrial fibrillation with RVR with aortic valve repair. Dr. Aguilera as her primary care provider. 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 Please note that the patient was seen yesterday in our emergency room with complaints of shortness of breath and requesting pain management. She reports that she was on methadone and when she moved to [facility] she was unable to fill this prescription. Dr. Aguilera had switched her to oxycodone which she initially took but decided to stop "cold turkey" and flushed her pills down the toilet. Yesterday she received 1 tablet of Percocet and an instrumented for Ativan. She was informed that she needed to follow-up with her primary care provider for further refills. Patient states that she feels that she is going through withdrawals at this time and her hands are "shaky". Review of systems: As per history of present illness and below otherwise all systems reviewed and negative. Past medical history: As per history of present illness and as reviewed below otherwise noncontributory. Surgical history: As per history of present illness and as reviewed below otherwise noncontributory. Social history: No reported history of drug or alcohol abuse. Family history: As per history of present illness and as reviewed below otherwise noncontributory. Physical exam: Gen.: Well-developed and well-nourished 67-year-old female. Nontoxic and appears to be in no acute distress. Alert and oriented. HEENT: Atraumatic, normocephalic, pupils reactive, negative for conjunctival pallor or scleral icterus, mucous membranes moist, throat clear, neck supple, nontender, trachea midline. Lungs: Clear to auscultation, breath sounds equal bilaterally, chest nontender. Heart: S1S2, regular, negative for clicks, rubs, or JVD. Abdomen: Soft, nondistended, nontender. Negative for masses or hepatosplenomegaly. Negative for costovertebral tenderness. Pelvis: Stable nontender. Genitourinary: Deferred. Rectal: Deferred. Extremities: Moves all extremities per self, able to stand and ambulate, negative for cords or calf pain. Neurovascular unremarkable. C-spine and back: No pinpoint vertebral tenderness, crepitus, step-offs or obvious deformities. Neuro: Awake, alert, oriented. Cranial nerves II through XII unremarkable. Cerebellum unremarkable. Motor and sensory unremarkable throughout. Exam nonfocal. Labs that were done today are unchanged from yesterday. Awaiting CT and x-ray reports. Patient is resting quietly on the cot. Family at bedside. I discussed the results with the daughter and patient. The daughter expresses her frustration and dealings of helplessness being able to help her mom manage her pain. We went in great length of discussing her possible treatment options with her primary care provider. She states that she will call on Tuesday to get her an expedited appointment with Dr. Aguilera. Due to the fracture of the left anterior eighth rib, and will prescribe tramadol (#18 tabs - NR) . The daughter states that she has used this in the past and it has helped alleviate pain and her restless legs. She is aware that this medication will not be refilled through the emergency room and that further pain medication needs to be done through primary care. Diagnostics: X-ray of the left hip and pelvis, 2 view chest x-ray, EKG Therapeutics: 1 tab Percocet Impression: Contusion Rib fracture Plan: 1. Tramadol 1 tab every 4-6 hours as needed for pain. Further refills of any pain medication need to be done through your primary care provider. 2. With your rib fracture please make sure you are taking deep and full breaths. Do not avoid coughing as this may ultimately lead to a pneumonia. 3. Please call tomorrow for an expedited appointment with Dr. Aguilera. I would like you to see him in the next 1-2 days. Return to the ED as needed and as discussed. Definitive disposition and diagnosis as appropriate pending reevaluation and review of above. Onset: Today Duration: Hour(s): Location: Reports: Chest, Pelvis left hip and breast Pain Score (Numeric/FACES): 7 - Related Data Allergies Allergy/AdvReac Type Severity Reaction Status Date / Time No Known Allergies Allergy Verified 09/25/17 10:34 Home Meds: Home Meds Warfarin [Coumadin] 6 mg PO BEDTIME 11/28/16 [History] DULoxetine HCl [Duloxetine HCl] 60 mg PO BEDTIME 07/18/17 [History] traMADol [Ultram] 50 mg PO Q8H #90 tablet 07/23/17 [Rx] Lisinopril [Prinivil] 10 mg PO BEDTIME 08/22/17 [History] Polyethylene Glycol 3350 [MiraLAX] 17 gm PO DAILY 08/22/17 [History] Metoprolol Tartrate [Lopressor] 50 mg PO TID tablet 08/24/17 [Rx] Spironolactone [Aldactone] 12.5 mg PO DAILY tablet 08/24/17 [Rx] Furosemide [Lasix] 80 mg PO BID 09/24/17 [History] Pantoprazole [ProTONIX] 40 mg PO DAILY 09/24/17 [History] Past Medical History HEENT History: Reports: Other (See Below) Other HEENT History: no teeth or dentures Cardiovascular History: Reports: Afib, Heart Failure, Heart Valve Replacement, Hypertension Respiratory History: Reports: COPD Gastrointestinal History: Reports: GERD Other Gastrointestinal History: acid reflux Genitourinary History: Reports: 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: Musculoskeletal History: Reports: Arthritis, Back Pain, Chronic, Other (See Below) Other Musculoskeletal History: scoliosis, bulging discs, carpal tunnel, restless leg Neurological History: Reports: TIA Psychiatric History: Reports: Anxiety, Depression Endocrine/Metabolic History: Reports: None Hematologic History: Reports: Anticoagulation Therapy Immunologic History: Reports: None Oncologic (Cancer) History: Reports: Breast Other Oncologic History: right breast ca Dermatologic History: Reports: None - Past Surgical History GI Surgical History: Reports: Bariatric Procedure, Cholecystectomy, Other (See Below) Female Surgical History: Reports: Tubal Ligation Musculoskeletal Surgical History: Reports: Carpal Tunnel, Other (See Below) Social & Family History - Family History Family Medical History: Noncontributory - Tobacco Use Smoking Status *Q: Never Smoker Years of Tobacco use: 50 Packs/Tins Daily: 0.5 Used Tobacco, but Quit: Yes Month Tobacco Last Used: July Second Hand Smoke Exposure: No - Caffeine Use Caffeine Use: Reports: None Caffeine Use Comment: 3-4 cups a day - Recreational Drug Use Recreational Drug Use: No - Living Situation & Occupation Living situation: Reports: , with Family Occupation: Retired ED ROS GENERAL - Review of Systems Review Of Systems: ROS reveals no pertinent complaints other than HPI. ED EXAM, GENERAL - Physical Exam Exam: See Below (See dictation) Course - Vital Signs Last Recorded V/S: Last Vital Signs Temp 35.7 C 09/25/17 10:41 Pulse 111 H 09/25/17 10:41 Resp 16 09/25/17 10:41 BP 117/71 09/25/17 10:41 Pulse Ox 94 L 09/25/17 10:41 - Orders/Labs/Meds Orders: Active Orders 24 hr Category Date Time Status Head wo Cont [CT] Stat Exams 09/25/17 10:40 Taken Hip Min 1V w Pelvis Lt [CR] Stat Exams 09/25/17 10:39 Taken Ribs 2V wo Chest Lt [CR] Stat Exams 09/25/17 10:39 Taken Labs: Laboratory Tests 09/25/17 09/25/17 Range/Units 10:52 10:52 WBC 8.09 (4.0-11.0) K/uL RBC 3.17 L (4.30-5.90) M/uL Hgb 8.4 L (12.0-16.0) g/dL Hct 27.7 L (36.0-46.0) % MCV 87.4 (80.0-98.0) fL MCH 26.5 L (27.0-32.0) pg MCHC 30.3 L (31.0-37.0) g/dL RDW Std Deviation 48.6 (28.0-62.0) fl RDW Coeff of Shaun 15 (11.0-15.0) % Plt Count 290 (150-400) K/uL MPV 9.00 (7.40-12.00) fL Neut % (Auto) 65.9 (48.0-80.0) % Lymph % (Auto) 26.7 (16.0-40.0) % [place] % (Auto) 6.2 (0.0-15.0) % Eos % (Auto) 1.0 (0.0-7.0) % Baso % (Auto) 0.2 (0.0-1.5) % Neut # (Auto) 5.3 (1.4-5.7) K/uL Lymph # (Auto) 2.2 (0.6-2.4) K/uL [place] # (Auto) 0.5 (0.0-0.8) K/uL Eos # (Auto) 0.1 (0.0-0.7) K/uL Baso # (Auto) 0.0 (0.0-0.1) K/uL Nucleated RBC % 0.0 /100WBC Nucleated RBCs # 0 K/uL INR 4.70 H (0.86-1.11) Meds: Medications Discontinued Medications Generic Name Dose Route Start Last Admin Trade Name Freq PRN Reason Stop Dose Admin Oxycodone/Acetaminophen 1 tab 09/25/17 10:40 09/25/17 10:44 Percocet 325-5 Mg PO 09/25/17 10:41 1 tab ONETIME ONE Administration Departure - Departure Time of Disposition: 12:08 Disposition: Home, Self-Care 01 Clinical Impression: Left rib fracture Qualifiers: Encounter type: initial encounter Rib fracture type: single rib Fracture type: closed Qualified Code(s): S22.32XA - Fracture of one rib, left side, initial encounter for closed fracture Contusion Qualifiers: Encounter type: initial encounter Contusion area: hip Laterality: left Qualified Code(s): S70.02XA - Contusion of left hip, initial encounter Fall Qualifiers: Encounter type: initial encounter Qualified Code(s): W19.XXXA - Unspecified fall, initial encounter - Discharge Information Referrals: Santy Aguilera DO [Primary Care Provider] - Additional Instructions: My general discharge The following information is given to patients seen in the emergency department who are being discharged to home. This information is to outline your options for follow-up care. We provide all patients seen in our emergency department with a follow-up referral. The need for follow-up, as well as the timing and circumstances, are variable depending upon the specifics of your emergency department visit. If you don't have a primary care physician on staff, we will provide you with a referral. We always advise you to contact your personal physician following an emergency department visit to inform them of the circumstance of the visit and for follow-up with them and/or the need for any referrals to a consulting specialist. The emergency department will also refer you to a specialist when appropriate. This referral assures that you have the opportunity for follow-up care with a specialist. All of these measure are taken in an effort to provide you with optimal care, which includes your follow-up. Under all circumstances we always encourage you to contact your private physician who remains a resource for coordinating your care. When calling for follow-up care, please make the office aware that this follow-up is from your recent emergency room visit. If for any reason you are refused follow-up, please contact the [facility] Emergency Department at and asked to speak to the emergency department charge nurse. [facility] [address] [place] [id number] 1. Tramadol 1 tab every 4-6 hours as needed for pain. Further refills of any pain medication need to be done through your primary care provider. 2. With your rib fracture please make sure you are taking deep and full breaths. Do not avoid coughing as this may ultimately lead to a pneumonia. 3. Please call tomorrow for an expedited appointment with Dr. Aguilera. I would like you to see him in the next 1-2 days. Return to the ED as needed and as discussed. - My Orders Last 24 Hours: My Active Orders 09/25/17 10:39 Hip Min 1V w Pelvis Lt [CR] Stat Ribs 2V wo Chest Lt [CR] Stat 09/25/17 10:40 Head wo Cont [CT] Stat - Assessment/Plan Last 24 Hours: My Active Orders 09/25/17 10:39 Hip Min 1V w Pelvis Lt [CR] Stat Ribs 2V wo Chest Lt [CR] Stat 09/25/17 10:40 Head wo Cont [CT] Stat
[2017-09-25] MEDS ORDERED: Acetaminophen/oxyCODONE 325-5 MG Tab PO ONE (10:40)
[2017-09-25 10:46] VITALS: BP 117/71
--- NOTE | 2017-09-26 15:56 | CR ---
EXAM DATE: 09/25/17 PATIENT'S AGE: 67 Patient: REESE SHELDON Facility: [place], [place] Site . Site : 1950 Study: XRay Hip [id number]/19/2017 11:19:16 AM Ordering Physician: Doctor Bermudez Final Report: INDICATION: fall TECHNIQUE: AP pelvis and AP and lateral views of the left hip are submitted. COMPARISON: None. FINDINGS: No fractures or dislocations. Calcification and ectasia of the iliac arteries. Degenerative disc disease in the lower lumbar spine. Transitional vertebra at the L5 level, partially sacralized on the left. Minimal degenerative changes in both hips. IMPRESSION: No acute bony abnormality. Dictated by Tian Kim MD @ 09/25/2017 11:39:00 AM Dictated by: Tian Kim MD @ 09/25/2017 11:39:05 (Electronic Signature) Report Signed by Proxy. JEY
--- NOTE | 2017-09-26 15:56 | CT ---
EXAM DATE: 09/25/17 PATIENT'S AGE: 67 Patient: REESE SHELDON Facility: [place], [place] Site . Site : 1950 Study: XRay Chest Left ribs [id number]/19/2017 11:22:21 AM Ordering Physician: Doctor Bermudez Final Report: INDICATION: fall TECHNIQUE: AP and oblique views of the left ribs submitted. COMPARISON: Chest x-ray 09/24/2017. FINDINGS: Previous sternotomy with aortic valve replacement. Mild cardiomegaly. Slight deformity of the left anterior 8th rib. A nondisplaced fracture is suspected. Correlate clinically. Mild degenerative changes in the left glenohumeral joint. Visualized lung pedro are clear. IMPRESSION: Probable nondisplaced fracture of the left anterior 8th rib. Correlate clinically. Dictated by Tian Kim MD @ 09/25/2017 11:42:04 AM Dictated by: Tian Kim MD @ 09/25/2017 11:42:10 (Electronic Signature) Report Signed by Proxy. [facility]
--- NOTE | 2017-09-26 16:10 | CT ---
EXAM DATE: 09/25/17 PATIENT'S AGE: 67 Patient: REESE SHELDON Facility: [place], [place] Site . Site : 1950 Study: CT Head [id number]/19/2017 11:10:03 AM Ordering Physician: Doctor Bermudez Final Report: HISTORY: Fall, pain. TECHNIQUE: Noncontrast head CT. COMPARISON: No prior. FINDINGS: There is no acute intracranial hemorrhage or acute ischemic infarct. No mass effect or midline shift. No hydrocephalus. No extra-axial collection or hematoma. No acute loss of charles-white differentiation. Mastoid air cells are clear. Paranasal sinuses are clear. No skull fracture. IMPRESSION: No acute intracranial injury or disease. Dictated by: Catracho Yee MD @ 09/25/2017 11:37:39 (Electronic Signature) Report Signed by Proxy. [facility]
== END 2017-09-25 12:15 | disposition home or self-care (01) ==
LOC: MW.ED 10:29
DX: S22.32XA Fracture of one rib, left side, initial encounter for closed fracture (principal); S70.02XA Contusion of left hip, initial encounter; I10 Essential (primary) hypertension; Z79.01 Long term (current) use of anticoagulants; Z79.899 Other long term (current) drug therapy; W06.XXXA Fall from bed, initial encounter
CPT/HCPCS: 36415; 70450; 71100; 73501; 85025; 85610; 93005; 99284; A9270; 99282

== ENCOUNTER 2017-10-02 04:13 | Emergency (ER) | payer MEDICARE, OTHER ==
--- NOTE | 2017-10-02 04:23 | EDM.PDOC ---
ED HPI GENERAL MEDICAL PROBLEM - General Chief Complaint: General Stated Complaint: TROUBLE BREATHING/RIB PAIN Time Seen by Provider: 10/02/17 04:46 - History of Present Illness INITIAL COMMENTS - FREE TEXT/NARRATIVE: 67 yo fm presents to ED c/o pain in her ribs and pleuritic chest pain. Pain has been present for a few weeks now. She was seen in ED multiple times for similar complaints. On 09/25 she had a rib XR that revealed rib fracture. She was prescribed Tramadol but she states the Tramadol is not effective at providing relief. SHe has a history of chronic pain for which she takes Oxycodone 10 mg PO q6 hours. Medication is prescribed by her PCP Dr. Aguilera. She states she ran out of the medication and does not have follow-up scheduled with Dr. Aguilera until later this week. She has no other complaints or concerns. left rib Pain Score (Numeric/FACES): 10 - Related Data Allergies Allergy/AdvReac Type Severity Reaction Status Date / Time No Known Allergies Allergy Verified 10/02/17 04:32 Home Meds: Home Meds Warfarin [Coumadin] 6 mg PO BEDTIME 11/28/16 [History] DULoxetine HCl [Duloxetine HCl] 60 mg PO BEDTIME 07/18/17 [History] traMADol [Ultram] 50 mg PO Q8H #90 tablet 07/23/17 [Rx] Lisinopril [Prinivil] 10 mg PO BEDTIME 08/22/17 [History] Polyethylene Glycol 3350 [MiraLAX] 17 gm PO DAILY 08/22/17 [History] Metoprolol Tartrate [Lopressor] 50 mg PO TID tablet 08/24/17 [Rx] Spironolactone [Aldactone] 12.5 mg PO DAILY tablet 08/24/17 [Rx] Furosemide [Lasix] 80 mg PO BID 09/24/17 [History] Pantoprazole [ProTONIX] 40 mg PO DAILY 09/24/17 [History] oxyCODONE HCl [Oxycodone HCl] 10 mg PO Q6HR PRN #30 tablet 10/02/17 [Rx] Past Medical History HEENT History: Reports: Other (See Below) Other HEENT History: no teeth or dentures Cardiovascular History: Reports: Afib, Heart Failure, Heart Valve Replacement, Hypertension Respiratory History: Reports: COPD Gastrointestinal History: Reports: GERD Other Gastrointestinal History: acid reflux Genitourinary History: Reports: None 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: Musculoskeletal History: Reports: Arthritis, Back Pain, Chronic, Other (See Below) Other Musculoskeletal History: scoliosis, bulging discs, carpal tunnel, restless leg Neurological History: Reports: TIA Psychiatric History: Reports: Anxiety, Depression Endocrine/Metabolic History: Reports: None Hematologic History: Reports: Anticoagulation Therapy Immunologic History: Reports: None Oncologic (Cancer) History: Reports: Breast Other Oncologic History: right breast ca Dermatologic History: Reports: None - Past Surgical History GI Surgical History: Reports: Bariatric Procedure, Cholecystectomy, Other (See Below) Female Surgical History: Reports: Tubal Ligation Musculoskeletal Surgical History: Reports: Carpal Tunnel, Other (See Below) Social & Family History - Family History Family Medical History: Noncontributory - Tobacco Use Smoking Status *Q: Never Smoker Years of Tobacco use: 50 Packs/Tins Daily: 0.5 Used Tobacco, but Quit: Yes Month Tobacco Last Used: July Hand Smoke Exposure: No - Caffeine Use Caffeine Use: Reports: None Caffeine Use Comment: 3-4 cups a day - Recreational Drug Use Recreational Drug Use: No - Living Situation & Occupation Living situation: Reports: , with Family Occupation: Retired ED ROS GENERAL - Review of Systems Review Of Systems: See Below Constitutional: Reports: No Symptoms HEENT: Reports: No Symptoms Respiratory: Reports: Shortness of Breath Cardiovascular: Reports: Chest Pain, Dyspnea on Exertion Endocrine: Reports: No Symptoms GI/Abdominal: Reports: No Symptoms : Reports: No Symptoms Musculoskeletal: Reports: No Symptoms Skin: Reports: No Symptoms Neurological: Reports: No Symptoms Psychiatric: Reports: No Symptoms Hematologic/Lymphatic: Reports: No Symptoms Immunologic: Reports: No Symptoms ED EXAM, GENERAL - Physical Exam Exam: See Below General Appearance: Alert, WD/WN, No Apparent Distress Eye Exam: Right Eye: Abnormal EOM Ears: Normal External Exam, Normal Canal, Hearing Grossly Normal, Normal TMs Nose: Normal Inspection, Normal Mucosa, No Blood Throat/Mouth: Normal Inspection, Normal Voice, No Airway Compromise Head: Atraumatic, Normocephalic Neck: Normal Inspection, Supple, Non-Tender, Full Range of Motion Respiratory/Chest: No Respiratory Distress, Lungs Clear, Normal Breath Sounds, No Accessory Muscle Use, Chest Non-Tender Cardiovascular: Normal Peripheral Pulses, Regular Rate, Rhythm, No JVD, Other ( Tenderness present at anterior chest wass just over the 8-9th ribs) Peripheral Pulses: 2+: Carotid (L), Carotid (R), Radial (L), Radial (R) GI/Abdominal: Normal Bowel Sounds, Soft, Non-Tender, No Organomegaly, No Distention Back Exam: Normal Inspection Extremities: Normal Inspection, Normal Range of Motion, Non-Tender, No Pedal Edema, Normal Capillary Refill Neurological: Alert, Oriented, CN II-XII Intact Psychiatric: Normal Affect, Normal Mood Skin Exam: Warm, Dry, Intact Lymphatic: No Adenopathy Course - Vital Signs Last Recorded V/S: Last Vital Signs Temp 36.0 C 10/02/17 04:15 Pulse 78 10/02/17 04:15 Resp 18 10/02/17 04:15 BP 141/80 H 10/02/17 04:15 Pulse Ox 97 10/02/17 04:15 - Orders/Labs/Meds Meds: Medications Discontinued Medications Generic Name Dose Route Start Last Admin Trade Name Freq PRN Reason Stop Dose Admin Oxycodone HCl 10 mg 10/02/17 04:46 Oxycodone PO 10/02/17 04:47 ONETIME ONE Departure - Departure Time of Disposition: 04:57 Disposition: Home, Self-Care 01 Clinical Impression: Rib fracture - Discharge Information Prescriptions: oxyCODONE HCl [Oxycodone HCl] 10 mg PO Q6HR PRN #30 tablet PRN Reason: Pain Referrals: PCP,None [Primary Care Provider] - Santy Aguilera DO [Physician] - Forms: ED Department Discharge Additional Instructions: The following information is given to patients seen in the emergency department who are being discharged to home. This information is to outline your options for follow-up care. We provide all patients seen in our emergency department with a follow-up referral. The need for follow-up, as well as the timing and circumstances, are variable depending upon the specifics of your emergency department visit. If you don't have a primary care physician on staff, we will provide you with a referral. We always advise you to contact your personal physician following an emergency department visit to inform them of the circumstance of the visit and for follow-up with them and/or the need for any referrals to a consulting specialist. The emergency department will also refer you to a specialist when appropriate. This referral assures that you have the opportunity for followup care with a specialist. All of these measure are taken in an effort to provide you with optimal care, which includes your followup. Under all circumstances we always encourage you to contact your private physician who remains a resource for coordinating your care. When calling for followup care, please make the office aware that this follow-up is from your recent emergency room visit. If for any reason you are refused follow-up, please contact the [facility] emergency department at and asked to speak to the emergency department charge nurse. - Problem List Review Problem List Initiated/Reviewed/Updated: Yes - Assessment/Plan Plan: Assessment: 1. Rib Fracture -present on XR from 09/25/17 Plan: -administered Oxycodone 10 mg single dose -provided prescription for Oxycodone 10 mg PO [id number] PRN pain, total 30 tabs, no refills -f/u with Dr. Aguilera in 1 week
[2017-10-02 04:37] VITALS: BP 141/80
[2017-10-02] MEDS ORDERED: oxyCODONE 5 MG Tab PO ONE (04:46)
== END 2017-10-02 05:41 | disposition home or self-care (01) ==
LOC: MW.ED 04:13
DX: S22.32XA Fracture of one rib, left side, initial encounter for closed fracture (principal); Z79.01 Long term (current) use of anticoagulants; Z79.899 Other long term (current) drug therapy; X58.XXXA Exposure to other specified factors, initial encounter
CPT/HCPCS: 93005; 99283; A9270; 99282

== ENCOUNTER 2017-11-08 10:47 | Inpatient (IN) | payer MEDICARE, OTHER ==
--- NOTE | 2017-11-08 11:12 | EDM.PDOC ---
<Faustina Ag - Last Filed: 11/08/17 12:10> ED HPI GENERAL MEDICAL PROBLEM - General Chief Complaint: Respiratory Problem Stated Complaint: TROUBLE BREATHING Time Seen by Provider: 11/08/17 11:02 - History of Present Illness INITIAL COMMENTS - FREE TEXT/NARRATIVE: This is Dr. Ag dictating an addendum note as a supervising physician on this case. I'm familiar with this patient as I cared for her back in September and for milieu with some of the issues with her outpatient healthcare and her desire to self control her healthcare issues. Her daughter is at the bedside and both the patient and daughter are aware of the severity of her current testing results and the need for blood transfusion as well as FFP and PICC line placement. The patient also was not telling her daughter about the black stools she's been having and she was more concerned that she had a viral GI syndrome. The patient and daughter do tell me that when she had vomiting with these symptoms she presented with today there was no black coffee grounds or bloody vomitus. The diarrhea was black which she just recently admitted to our nurse practitioner as well as to the daughter. She has no abdominal pain on my evaluation and is not experiencing any breathlessness or shortness of breath and her O2 sat on room air is 100%. Dr. Quinn is currently at bedside and is aware of the case and Dr. Sanchez ER radiologist will be placing the PICC line shortly. Dr. Quinn will be ordering vitamin K. Critical care time excluding procedures:35min Impression: Vomiting and diarrhea with critical anemia and critical elevated INR /Coumadin toxicity with history of multiple medical problems - Related Data Allergies Allergy/AdvReac Type Severity Reaction Status Date / Time No Known Allergies Allergy Verified 11/08/17 10:49 Home Meds: Home Meds Warfarin [Coumadin] 6 mg PO BEDTIME 11/28/16 [History] DULoxetine HCl [Duloxetine HCl] 60 mg PO BEDTIME 07/18/17 [History] traMADol [Ultram] 50 mg PO Q8H #90 tablet 07/23/17 [Rx] Lisinopril [Prinivil] 30 mg PO BEDTIME 08/22/17 [History] Polyethylene Glycol 3350 [MiraLAX] 17 gm PO DAILY 08/22/17 [History] Metoprolol Tartrate [Lopressor] 50 mg PO TID tablet 08/24/17 [Rx] Spironolactone [Aldactone] 12.5 mg PO DAILY tablet 08/24/17 [Rx] Furosemide [Lasix] 80 mg PO BID 09/24/17 [History] Pantoprazole [ProTONIX] 40 mg PO DAILY 09/24/17 [History] oxyCODONE HCl [Oxycodone HCl] 10 mg PO Q6HR PRN #30 tablet 10/02/17 [Rx] Course - Vital Signs Last Recorded V/S: Last Vital Signs Temp 35.9 C 11/08/17 10:49 Pulse 80 11/08/17 10:49 Resp 20 11/08/17 10:49 BP 143/43 H 11/08/17 10:49 Pulse Ox 97 11/08/17 10:49 - Orders/Labs/Meds Orders: Active Orders 24 hr Category Date Time Status Admission Status [Patient Status] [ADT] Stat ADT 11/08/17 12:07 Active EKG Documentation Completion [RC] STAT Care 11/08/17 11:26 Active Chest 1V Frontal [CR] Stat Exams 11/08/17 11:12 Ordered Guide Vascular Access [US] Routine Exams 11/08/17 Ordered PICC Line Insertion [CR] Stat Exams 11/08/17 11:46 Ordered FRESH FROZEN PLASMA [BBK] Stat Lab 11/08/17 12:02 Received PTT,PARTIAL THROMBOPLSTIN TIME [COAG] Routine Lab 11/08/17 11:10 Received RED BLOOD CELLS LP [BBK] Stat Lab 11/08/17 12:02 Received TYPE AND SCREEN [BBK] Stat Lab 11/08/17 12:02 Received Pantoprazole [ProTONIX IV] 80 mg Med 11/08/17 12:00 Active Sodium Chloride 0.9% [Normal Saline] 100 ml IV Q10H Phytonadione [AquaMephyton] Med 11/08/17 12:15 Once 5 mg PO ONETIME ONE Sodium Chloride 0.9% [Normal Saline] 1,000 ml Med 11/08/17 12:00 Active IV ASDIRECTED Sodium Chloride 0.9% [Normal Saline] 500 ml Med 11/08/17 12:15 Active IV STAT Transfuse Fresh Frozen Plasma [COMM] Stat Oth 11/08/17 11:47 Ordered Transfuse PRBC [Transfuse Red Blood Cells] [COMM] Stat Oth 11/08/17 11:43 Ordered Medication Orders Pantoprazole Sodium 80 mg/ (Sodium Chloride) 100 mls @ 10 mls/hr IV Q10H [place] Sodium Chloride (Normal Saline) 1,000 mls @ 50 mls/hr IV ASDIRECTED CALIXTO Stop: 11/08/17 15:01 Sodium Chloride (Normal Saline) 500 mls @ 999 mls/hr IV STAT CALIXTO Last Admin: 11/08/17 12:09 Dose: 999 mls/hr Phytonadione (Aquamephyton) 5 mg PO ONETIME ONE Stop: 11/08/17 12:16 Labs: Laboratory Tests 11/08/17 11/08/17 11/08/17 Range/Units 11:10 11:10 11:10 WBC 10.24 (4.0-11.0) K/uL RBC 2.29 L (4.30-5.90) M/uL Hgb 5.2 L (12.0-16.0) g/dL Hct 18.6 L (36.0-46.0) % MCV 81.2 (80.0-98.0) fL MCH 22.7 L (27.0-32.0) pg MCHC 28.0 L (31.0-37.0) g/dL RDW Std Deviation 61.0 (28.0-62.0) fl RDW Coeff of Shaun 21 H (11.0-15.0) % Plt Count 504 H (150-400) K/uL MPV 9.20 (7.40-12.00) fL Neut % (Auto) 67.0 (48.0-80.0) % Lymph % (Auto) 23.8 (16.0-40.0) % [place] % (Auto) 6.4 (0.0-15.0) % Eos % (Auto) 2.5 (0.0-7.0) % Baso % (Auto) 0.3 (0.0-1.5) % Neut # (Auto) 6.9 H (1.4-5.7) K/uL Lymph # (Auto) 2.4 (0.6-2.4) K/uL [place] # (Auto) 0.7 (0.0-0.8) K/uL Eos # (Auto) 0.3 (0.0-0.7) K/uL Baso # (Auto) 0.0 (0.0-0.1) K/uL Nucleated RBC % 0.5 /100WBC Nucleated RBCs # 0 K/uL INR 12.40 H* (0.86-1.11) Sodium 141 (136-146) mmol/L Potassium 4.4 (3.5-5.1) mmol/L Chloride 107 (98-110) mmol/L Carbon Dioxide 25 (21-31) mmol/L BUN 25 H (6.0-23.0) mg/dL Creatinine 1.0 (0.6-1.5) mg/dL Est Cr Clr Drug Dosing 39.21 mL/min Estimated GFR (MDRD) 55.3 ml/min Glucose 106 (60-110) mg/dL Calcium 9.2 (8.8-10.8) mg/dL Total Bilirubin 0.2 (0.1-1.5) mg/dL AST 15 (5-40) IU/L ALT 14 (8-54) IU/L Alkaline Phosphatase 75 (40-150) B-Natriuretic Peptide (<100) PG/ML Total Protein 6.2 (6.0-8.0) g/dL Albumin 3.5 (3.4-4.8) g/dL Globulin 2.7 (2.0-3.5) g/dL Albumin/Globulin Ratio 1.3 (1.3-2.8) 11/08/17 Range/Units 11:10 WBC (4.0-11.0) K/uL RBC (4.30-5.90) M/uL Hgb (12.0-16.0) g/dL Hct (36.0-46.0) % MCV (80.0-98.0) fL MCH (27.0-32.0) pg MCHC (31.0-37.0) g/dL RDW Std Deviation (28.0-62.0) fl RDW Coeff of Shaun (11.0-15.0) % Plt Count (150-400) K/uL MPV (7.40-12.00) fL Neut % (Auto) (48.0-80.0) % Lymph % (Auto) (16.0-40.0) % [place] % (Auto) (0.0-15.0) % Eos % (Auto) (0.0-7.0) % Baso % (Auto) (0.0-1.5) % Neut # (Auto) (1.4-5.7) K/uL Lymph # (Auto) (0.6-2.4) K/uL [place] # (Auto) (0.0-0.8) K/uL Eos # (Auto) (0.0-0.7) K/uL Baso # (Auto) (0.0-0.1) K/uL Nucleated RBC % /100WBC Nucleated RBCs # K/uL INR (0.86-1.11) Sodium (136-146) mmol/L Potassium (3.5-5.1) mmol/L Chloride (98-110) mmol/L Carbon Dioxide (21-31) mmol/L BUN (6.0-23.0) mg/dL Creatinine (0.6-1.5) mg/dL Est Cr Clr Drug Dosing mL/min Estimated GFR (MDRD) ml/min Glucose (60-110) mg/dL Calcium (8.8-10.8) mg/dL Total Bilirubin (0.1-1.5) mg/dL AST (5-40) IU/L ALT (8-54) IU/L Alkaline Phosphatase (40-150) B-Natriuretic Peptide 597 H (<100) PG/ML Total Protein (6.0-8.0) g/dL Albumin (3.4-4.8) g/dL Globulin (2.0-3.5) g/dL Albumin/Globulin Ratio (1.3-2.8) Meds: Medications Generic Name Dose Route Start Last Admin Trade Name Freq PRN Reason Stop Dose Admin Pantoprazole Sodium 80 mg/ 100 mls @ 10 mls/hr 11/08/17 12:00 Sodium Chloride IV Q10H [place] Sodium Chloride 1,000 mls @ 50 mls/hr 11/08/17 12:00 Normal Saline IV 11/08/17 15:01 ASDIRECTED [place] Sodium Chloride 500 mls @ 999 mls/hr 11/08/17 12:15 11/08/17 12:09 Normal Saline IV 999 mls/hr STAT CALIXTO Administration Phytonadione 5 mg 11/08/17 12:15 Aquamephyton PO 11/08/17 12:16 ONETIME ONE Discontinued Medications Generic Name Dose Route Start Last Admin Trade Name Alecq PRN Reason Stop Dose Admin Pantoprazole Sodium 80 mg/ 100 mls @ 10 mls/hr 11/08/17 11:45 Sodium Chloride IV .Continuous [place]TO Lorazepam 1 mg 11/08/17 11:51 11/08/17 12:02 Ativan IVPUSH 11/08/17 11:52 1 mg ONETIME ONE Administration Lorazepam Confirm 11/08/17 11:52 Ativan Administered 11/08/17 11:53 Dose 2 mg .ROUTE .STK-MED ONE Pantoprazole Sodium 80 mg 11/08/17 11:44 11/08/17 12:03 Protonix Iv IVPUSH 11/08/17 11:45 80 mg .BOLUS ONE Administration Phytonadione 5 mg 11/08/17 11:57 Mephyton PO 11/08/17 11:58 ONETIME ONE Departure - Departure Disposition: Admitted As Inpatient 66 Clinical Impression: Elevated INR, GI bleeding - Discharge Information Referrals: PCP,None [Primary Care Provider] - Forms: ED Department Discharge - My Orders Last 24 Hours: My Active Orders 11/08/17 11:12 Chest 1V Frontal [CR] Stat 11/08/17 11:26 EKG Documentation Completion [RC] STAT 11/08/17 12:07 Admission Status [Patient Status] [ADT] Stat 11/08/17 12:15 Sodium Chloride 0.9% [Normal Saline] 500 ml IV STAT - Assessment/Plan Last 24 Hours: My Active Orders 11/08/17 11:12 Chest 1V Frontal [CR] Stat 11/08/17 11:26 EKG Documentation Completion [RC] STAT 11/08/17 12:07 Admission Status [Patient Status] [ADT] Stat 11/08/17 12:15 Sodium Chloride 0.9% [Normal Saline] 500 ml IV STAT <Marcio Torres - Last Filed: 11/08/17 12:17> ED HPI GENERAL MEDICAL PROBLEM - General Source of Information: Reports: Patient History Limitations: Reports: No Limitations - History of Present Illness INITIAL COMMENTS - FREE TEXT/NARRATIVE: History of present illness: [67-year-old female presenting with her daughter with complaints of nausea and vomiting. Patient feels that she might be struggling with a viral illness. Patient denies any other concerns and indicated daughter made her come in. Patient is pleasant, verbal and conversant but quite pale laying in the bed. Patient is well-known to the attending with chronic GI bleeding issues as well as protracted INRs, and some components of congestive heart failure and A. fib. Patient is in a sinus rhythm today and negative for influenza.] Review of systems: As per history of present illness and below otherwise all systems reviewed and negative. Past medical history: As per history of present illness and as reviewed below otherwise noncontributory. Surgical history: As per history of present illness and as reviewed below otherwise noncontributory. Social history: No reported history of drug or alcohol abuse. Family history: As per history of present illness and as reviewed below otherwise noncontributory. Physical exam: HEENT: Atraumatic, normocephalic, pupils reactive, negative for conjunctival pallor or scleral icterus, mucous membranes moist, throat clear, neck supple, nontender, trachea midline. Lungs: Clear to auscultation, breath sounds equal bilaterally, chest nontender. Heart: S1S2, regular, negative for clicks, rubs, or JVD. Abdomen: Soft, nondistended, nontender. Negative for masses or hepatosplenomegaly. Negative for costovertebral tenderness. Pelvis: Stable nontender. Genitourinary: Deferred. Rectal: Deferred. Extremities: Atraumatic, negative for cords or calf pain. Neurovascular unremarkable. Neuro: Awake, alert, oriented. Cranial nerves II through XII unremarkable. Cerebellum unremarkable. Motor and sensory unremarkable throughout. Exam nonfocal. Patient denies pain. Patient agreed to a rectal exam which was heme positive per [id number] testing. Dr. Ag at bedside, Dr. Edy Quinn also in the ER to evaluate patient. Diagnostics: [CBC, CMP, INR, chest x-ray and EKG, influenza AB] Therapeutics: [500 male Timbo saline bolus] Impression: [GI bleed] Plan: [Admit to ICU to Dr. Quinn] Definitive disposition and diagnosis as appropriate pending reevaluation and review of above. Past Medical History HEENT History: Reports: Other (See Below) Other HEENT History: no teeth or dentures Cardiovascular History: Reports: Afib, Heart Failure, Heart Valve Replacement, Hypertension Respiratory History: Reports: COPD Gastrointestinal History: Reports: GERD Other Gastrointestinal History: acid reflux Genitourinary History: Reports: None [employer] History: Reports: Musculoskeletal History: Reports: Arthritis, Back Pain, Chronic, Other (See Below) Other Musculoskeletal History: scoliosis, bulging discs, carpal tunnel, restless leg Neurological History: Reports: TIA Psychiatric History: Reports: Anxiety, Depression Endocrine/Metabolic History: Reports: None Hematologic History: Reports: Anticoagulation Therapy Immunologic History: Reports: None Oncologic (Cancer) History: Reports: Breast Other Oncologic History: right breast ca Dermatologic History: Reports: None - Past Surgical History Head Surgeries/Procedures: Reports: None GI Surgical History: Reports: Bariatric Procedure, Cholecystectomy, Other (See Below) Female Surgical History: Reports: Tubal Ligation Musculoskeletal Surgical History: Reports: Carpal Tunnel, Other (See Below) Social & Family History - Family History Family Medical History: Noncontributory - Tobacco Use Smoking Status *Q: Never Smoker Years of Tobacco use: 50 Packs/Tins Daily: 0.5 Used Tobacco, but Quit: Yes Month Tobacco Last Used: July Second Hand Smoke Exposure: No - Caffeine Use Caffeine Use: Reports: Coffee Caffeine Use Comment: 3-4 cups a day - Recreational Drug Use Recreational Drug Use: No - Living Situation & Occupation Living situation: Reports: , with Family Occupation: Retired ED ROS GENERAL - Review of Systems Review Of Systems: See Below (See history of present illness) ED EXAM, GENERAL - Physical Exam Exam: See Below (See history of present illness) Course - Orders/Labs/Meds Orders: Active Orders 24 hr Category Date Time Status Admission Status [Patient Status] [ADT] Stat ADT 11/08/17 12:07 Active EKG Documentation Completion [RC] STAT Care 11/08/17 11:26 Active Chest 1V Frontal [CR] Stat Exams 11/08/17 11:12 Ordered Guide Vascular Access [US] Routine Exams 11/08/17 Ordered PICC Line Insertion [CR] Stat Exams 11/08/17 11:46 Ordered FRESH FROZEN PLASMA [BBK] Stat Lab 11/08/17 12:02 Received PTT,PARTIAL THROMBOPLSTIN TIME [COAG] Routine Lab 11/08/17 11:10 Received RED BLOOD CELLS LP [BBK] Stat Lab 11/08/17 12:02 Received TYPE AND SCREEN [BBK] Stat Lab 11/08/17 12:02 Received Pantoprazole [ProTONIX IV] 80 mg Med 11/08/17 12:00 Active Sodium Chloride 0.9% [Normal Saline] 100 ml IV Q10H Phytonadione [AquaMephyton] Med 11/08/17 12:15 Once 5 mg PO ONETIME ONE Sodium Chloride 0.9% [Normal Saline] 1,000 ml Med 11/08/17 12:00 Active IV ASDIRECTED Sodium Chloride 0.9% [Normal Saline] 500 ml Med 11/08/17 12:15 Active IV STAT Transfuse Fresh Frozen Plasma [COMM] Stat Oth 11/08/17 11:47 Ordered Transfuse PRBC [Transfuse Red Blood Cells] [COMM] Stat Oth 11/08/17 11:43 Ordered Medication Orders Pantoprazole Sodium 80 mg/ (Sodium Chloride) 100 mls @ 10 mls/hr IV Q10H [place] Sodium Chloride (Normal Saline) 1,000 mls @ 50 mls/hr IV ASDIRECTED [place] Stop: 11/08/17 15:01 Sodium Chloride (Normal Saline) 500 mls @ 999 mls/hr IV STAT [place]IXTO Last Admin: 11/08/17 12:09 Dose: 999 mls/hr Phytonadione (Aquamephyton) 5 mg PO ONETIME ONE Stop: 11/08/17 12:16 Labs: Laboratory Tests 11/08/17 11/08/17 11/08/17 Range/Units 11:10 11:10 11:10 WBC 10.24 (4.0-11.0) K/uL RBC 2.29 L (4.30-5.90) M/uL Hgb 5.2 L (12.0-16.0) g/dL Hct 18.6 L (36.0-46.0) % MCV 81.2 (80.0-98.0) fL MCH 22.7 L (27.0-32.0) pg MCHC 28.0 L (31.0-37.0) g/dL RDW Std Deviation 61.0 (28.0-62.0) fl RDW Coeff of Shaun 21 H (11.0-15.0) % Plt Count 504 H (150-400) K/uL MPV 9.20 (7.40-12.00) fL Neut % (Auto) 67.0 (48.0-80.0) % Lymph % (Auto) 23.8 (16.0-40.0) % [place] % (Auto) 6.4 (0.0-15.0) % Eos % (Auto) 2.5 (0.0-7.0) % Baso % (Auto) 0.3 (0.0-1.5) % Neut # (Auto) 6.9 H (1.4-5.7) K/uL Lymph # (Auto) 2.4 (0.6-2.4) K/uL [place] # (Auto) 0.7 (0.0-0.8) K/uL Eos # (Auto) 0.3 (0.0-0.7) K/uL Baso # (Auto) 0.0 (0.0-0.1) K/uL Nucleated RBC % 0.5 /100WBC Nucleated RBCs # 0 K/uL INR 12.40 H* (0.86-1.11) Sodium 141 (136-146) mmol/L Potassium 4.4 (3.5-5.1) mmol/L Chloride 107 (98-110) mmol/L Carbon Dioxide 25 (21-31) mmol/L BUN 25 H (6.0-23.0) mg/dL Creatinine 1.0 (0.6-1.5) mg/dL Est Cr Clr Drug Dosing 39.21 mL/min Estimated GFR (MDRD) 55.3 ml/min Glucose 106 (60-110) mg/dL Calcium 9.2 (8.8-10.8) mg/dL Total Bilirubin 0.2 (0.1-1.5) mg/dL AST 15 (5-40) IU/L ALT 14 (8-54) IU/L Alkaline Phosphatase 75 (40-150) B-Natriuretic Peptide (<100) PG/ML Total Protein 6.2 (6.0-8.0) g/dL Albumin 3.5 (3.4-4.8) g/dL Globulin 2.7 (2.0-3.5) g/dL Albumin/Globulin Ratio 1.3 (1.3-2.8) 11/08/17 Range/Units 11:10 WBC (4.0-11.0) K/uL RBC (4.30-5.90) M/uL Hgb (12.0-16.0) g/dL Hct (36.0-46.0) % MCV (80.0-98.0) fL MCH (27.0-32.0) pg MCHC (31.0-37.0) g/dL RDW Std Deviation (28.0-62.0) fl RDW Coeff of Shaun (11.0-15.0) % Plt Count (150-400) K/uL MPV (7.40-12.00) fL Neut % (Auto) (48.0-80.0) % Lymph % (Auto) (16.0-40.0) % [place] % (Auto) (0.0-15.0) % Eos % (Auto) (0.0-7.0) % Baso % (Auto) (0.0-1.5) % Neut # (Auto) (1.4-5.7) K/uL Lymph # (Auto) (0.6-2.4) K/uL [place] # (Auto) (0.0-0.8) K/uL Eos # (Auto) (0.0-0.7) K/uL Baso # (Auto) (0.0-0.1) K/uL Nucleated RBC % /100WBC Nucleated RBCs # K/uL INR (0.86-1.11) Sodium (136-146) mmol/L Potassium (3.5-5.1) mmol/L Chloride (98-110) mmol/L Carbon Dioxide (21-31) mmol/L BUN (6.0-23.0) mg/dL Creatinine (0.6-1.5) mg/dL Est Cr Clr Drug Dosing mL/min Estimated GFR (MDRD) ml/min Glucose (60-110) mg/dL Calcium (8.8-10.8) mg/dL Total Bilirubin (0.1-1.5) mg/dL AST (5-40) IU/L ALT (8-54) IU/L Alkaline Phosphatase (40-150) B-Natriuretic Peptide 597 H (<100) PG/ML Total Protein (6.0-8.0) g/dL Albumin (3.4-4.8) g/dL Globulin (2.0-3.5) g/dL Albumin/Globulin Ratio (1.3-2.8) Meds: Medications Generic Name Dose Route Start Last Admin Trade Name Freq PRN Reason Stop Dose Admin Pantoprazole Sodium 80 mg/ 100 mls @ 10 mls/hr 11/08/17 12:00 Sodium Chloride IV Q10H [place] Sodium Chloride 1,000 mls @ 50 mls/hr 11/08/17 12:00 Normal Saline IV 11/08/17 15:01 ASDIRECTED [place] Sodium Chloride 500 mls @ 999 mls/hr 11/08/17 12:15 11/08/17 12:09 Normal Saline IV 999 mls/hr STAT [place]TO Administration Phytonadione 5 mg 11/08/17 12:15 Aquamephyton PO 11/08/17 12:16 ONETIME ONE Discontinued Medications Generic Name Dose Route Start Last Admin Trade Name Freq PRN Reason Stop Dose Admin Pantoprazole Sodium 80 mg/ 100 mls @ 10 mls/hr 11/08/17 11:45 Sodium Chloride IV .Continuous [place] Lorazepam 1 mg 11/08/17 11:51 11/08/17 12:02 Ativan IVPUSH 11/08/17 11:52 1 mg ONETIME ONE Administration Lorazepam Confirm 11/08/17 11:52 Ativan Administered 11/08/17 11:53 Dose 2 mg .ROUTE .STK-MED ONE Pantoprazole Sodium 80 mg 11/08/17 11:44 11/08/17 12:03 Protonix Iv IVPUSH 11/08/17 11:45 80 mg .BOLUS ONE Administration Phytonadione 5 mg 11/08/17 11:57 Mephyton PO 11/08/17 11:58 ONETIME ONE Departure - Departure Time of Disposition: 12:16 - My Orders Last 24 Hours: My Active Orders 11/08/17 11:12 Chest 1V Frontal [CR] Stat 11/08/17 11:26 EKG Documentation Completion [RC] STAT 11/08/17 12:07 Admission Status [Patient Status] [ADT] Stat 11/08/17 12:15 Sodium Chloride 0.9% [Normal Saline] 500 ml IV STAT - Assessment/Plan Last 24 Hours: My Active Orders 11/08/17 11:12 Chest 1V Frontal [CR] Stat 11/08/17 11:26 EKG Documentation Completion [RC] STAT 11/08/17 12:07 Admission Status [Patient Status] [ADT] Stat 11/08/17 12:15 Sodium Chloride 0.9% [Normal Saline] 500 ml IV STAT
[2017-11-08] MEDS ORDERED: Pantoprazole 40 MG Vial IVPUSH ONE (11:44)
[2017-11-08] MEDS ORDERED: Pantoprazole 80 MG in Sodium Chloride 0.9% 100 ML IV SCH (11:45)
[2017-11-08] MEDS ORDERED: LORazepam 2 MG/ML MDV IVPUSH ONE (11:51)
[2017-11-08] MEDS ORDERED: LORazepam 2 MG/ML MDV ONE (11:52)
[2017-11-08] MEDS ORDERED: Phytonadione 5 MG Tab PO ONE (11:57)
[2017-11-08] MEDS: Sodium Chloride 0.9% 1,000 ML IV SCH ×2 (12:07→12:40)
[2017-11-08] MEDS ORDERED: Sodium Chloride 0.9% 500 ML IV SCH (12:15)
--- NOTE | 2017-11-08 12:17 | PCM.HP ---
H&P History of Present Illness - General Admit Problem/Dx: Admission Diagnosis/Problem Admission Diagnosis/Problem GI bleed requiring more than 4 units of blood in 24 hours, ICU, or surgery - History of Present Illness Initial Comments - Free Text/Narative: his 67 year old female with pmh of aortic valve replacement, atrial fibrillation on chronic anticoagulation, hx mitral valve regurgitation, HTN, CHF , and chronic pain who presents to the ED with complaint of nausea, vomiting, and shortness of breath for past few days. She reports black stools for past two weeks. She denies any hematemesis. Hgb was noted to be 5.2 and darks stool on rectal exam by ED provider. - Related Data Allergies/Adverse Reactions: Allergies Allergy/AdvReac Type Severity Reaction Status Date / Time No Known Allergies Allergy Verified 11/08/17 10:49 Home Medications: Home Meds Warfarin [Coumadin] 6 mg PO BEDTIME 11/28/16 [History] DULoxetine HCl [Duloxetine HCl] 60 mg PO BEDTIME 07/18/17 [History] traMADol [Ultram] 50 mg PO Q8H #90 tablet 07/23/17 [Rx] Lisinopril [Prinivil] 30 mg PO BEDTIME 08/22/17 [History] Polyethylene Glycol 3350 [MiraLAX] 17 gm PO DAILY 08/22/17 [History] Metoprolol Tartrate [Lopressor] 50 mg PO TID tablet 08/24/17 [Rx] Spironolactone [Aldactone] 12.5 mg PO DAILY tablet 08/24/17 [Rx] Furosemide [Lasix] 80 mg PO BID 09/24/17 [History] Pantoprazole [ProTONIX] 40 mg PO DAILY 09/24/17 [History] oxyCODONE HCl [Oxycodone HCl] 10 mg PO Q6HR PRN #30 tablet 10/02/17 [Rx] oxyCODONE ER [OxyCONTIN] 20 mg PO Q12HR 11/08/17 [History] Past Medical History HEENT History: Reports: Other (See Below) Other HEENT History: no teeth or dentures Cardiovascular History: Reports: Afib, Heart Failure, Heart Valve Replacement, Hypertension Respiratory History: Reports: COPD Gastrointestinal History: Reports: GERD Other Gastrointestinal History: acid reflux Genitourinary History: Reports: None 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: Musculoskeletal History: Reports: Arthritis, Back Pain, Chronic, Other (See Below) Other Musculoskeletal History: scoliosis, bulging discs, carpal tunnel, restless leg Neurological History: Reports: TIA Psychiatric History: Reports: Anxiety, Depression Endocrine/Metabolic History: Reports: None Hematologic History: Reports: Anticoagulation Therapy Immunologic History: Reports: None Oncologic (Cancer) History: Reports: Breast Other Oncologic History: right breast ca Dermatologic History: Reports: None - Past Surgical History Head Surgeries/Procedures: Reports: None GI Surgical History: Reports: Bariatric Procedure, Cholecystectomy, Other (See Below) Female Surgical History: Reports: Tubal Ligation Musculoskeletal Surgical History: Reports: Carpal Tunnel, Other (See Below) Social & Family History - Family History Family Medical History: Noncontributory - Tobacco Use Smoking Status *Q: Never Smoker Years of Tobacco use: 50 Packs/Tins Daily: 0.5 Used Tobacco, but Quit: Yes Month Tobacco Last Used: July Second Hand Smoke Exposure: No - Caffeine Use Caffeine Use: Reports: Coffee Caffeine Use Comment: 3-4 cups a day - Recreational Drug Use Recreational Drug Use: No - Living Situation & Occupation Living situation: Reports: , with Family Occupation: Retired H&P Review of Systems - Review of Systems: Review Of Systems: ROS reveals no pertinent complaints other than HPI. Exam - Exam Exam: See Below - Vital Signs Vital Signs: Last Vital Signs Temp 35.9 C 11/08/17 10:49 Pulse 80 11/08/17 10:49 Resp 20 11/08/17 10:49 BP 143/43 H 11/08/17 10:49 Pulse Ox 97 11/08/17 10:49 Weight: 67.132 kg - Exam General: Alert, Oriented, 4 Lungs: Clear to Auscultation, Normal Respiratory Effort Cardiovascular: Regular Rate, Regular Rhythm GI/Abdominal Exam: Soft, Non-Tender Extremities: Non-Tender, No Pedal Edema Skin: Warm, Dry, Intact - Patient Data Lab Results Last 24 hrs: Laboratory Results - last 24 hr 11/08/17 11/08/17 11/08/17 Range/Units 11:10 11:10 11:10 WBC 10.24 (4.0-11.0) K/uL RBC 2.29 L (4.30-5.90) M/uL Hgb 5.2 L (12.0-16.0) g/dL Hct 18.6 L (36.0-46.0) % MCV 81.2 (80.0-98.0) fL MCH 22.7 L (27.0-32.0) pg MCHC 28.0 L (31.0-37.0) g/dL RDW Std Deviation 61.0 (28.0-62.0) fl RDW Coeff of Shaun 21 H (11.0-15.0) % Plt Count 504 H (150-400) K/uL MPV 9.20 (7.40-12.00) fL Neut % (Auto) 67.0 (48.0-80.0) % Lymph % (Auto) 23.8 (16.0-40.0) % [place] % (Auto) 6.4 (0.0-15.0) % Eos % (Auto) 2.5 (0.0-7.0) % Baso % (Auto) 0.3 (0.0-1.5) % Neut # (Auto) 6.9 H (1.4-5.7) K/uL Lymph # (Auto) 2.4 (0.6-2.4) K/uL [place] # (Auto) 0.7 (0.0-0.8) K/uL Eos # (Auto) 0.3 (0.0-0.7) K/uL Baso # (Auto) 0.0 (0.0-0.1) K/uL Nucleated RBC % 0.5 /100WBC Nucleated RBCs # 0 K/uL INR 12.40 H* (0.86-1.11) Sodium 141 (136-146) mmol/L Potassium 4.4 (3.5-5.1) mmol/L Chloride 107 (98-110) mmol/L Carbon Dioxide 25 (21-31) mmol/L BUN 25 H (6.0-23.0) mg/dL Creatinine 1.0 (0.6-1.5) mg/dL Est Cr Clr Drug Dosing 39.21 mL/min Estimated GFR (MDRD) 55.3 ml/min Glucose 106 (60-110) mg/dL Calcium 9.2 (8.8-10.8) mg/dL Total Bilirubin 0.2 (0.1-1.5) mg/dL AST 15 (5-40) IU/L ALT 14 (8-54) IU/L Alkaline Phosphatase 75 (40-150) B-Natriuretic Peptide (<100) PG/ML Total Protein 6.2 (6.0-8.0) g/dL Albumin 3.5 (3.4-4.8) g/dL Globulin 2.7 (2.0-3.5) g/dL Albumin/Globulin Ratio 1.3 (1.3-2.8) 11/08/17 Range/Units 11:10 WBC (4.0-11.0) K/uL RBC (4.30-5.90) M/uL Hgb (12.0-16.0) g/dL Hct (36.0-46.0) % MCV (80.0-98.0) fL MCH (27.0-32.0) pg MCHC (31.0-37.0) g/dL RDW Std Deviation (28.0-62.0) fl RDW Coeff of Shaun (11.0-15.0) % Plt Count (150-400) K/uL MPV (7.40-12.00) fL Neut % (Auto) (48.0-80.0) % Lymph % (Auto) (16.0-40.0) % [place] % (Auto) (0.0-15.0) % Eos % (Auto) (0.0-7.0) % Baso % (Auto) (0.0-1.5) % Neut # (Auto) (1.4-5.7) K/uL Lymph # (Auto) (0.6-2.4) K/uL [place] # (Auto) (0.0-0.8) K/uL Eos # (Auto) (0.0-0.7) K/uL Baso # (Auto) (0.0-0.1) K/uL Nucleated RBC % /100WBC Nucleated RBCs # K/uL INR (0.86-1.11) Sodium (136-146) mmol/L Potassium (3.5-5.1) mmol/L Chloride (98-110) mmol/L Carbon Dioxide (21-31) mmol/L BUN (6.0-23.0) mg/dL Creatinine (0.6-1.5) mg/dL Est Cr Clr Drug Dosing mL/min Estimated GFR (MDRD) ml/min Glucose (60-110) mg/dL Calcium (8.8-10.8) mg/dL Total Bilirubin (0.1-1.5) mg/dL AST (5-40) IU/L ALT (8-54) IU/L Alkaline Phosphatase (40-150) B-Natriuretic Peptide 597 H (<100) PG/ML Total Protein (6.0-8.0) g/dL Albumin (3.4-4.8) g/dL Globulin (2.0-3.5) g/dL Albumin/Globulin Ratio (1.3-2.8) Result Diagrams: 11/09/17 07:48 11/09/17 07:48 Brannon Results Last 24 hrs: Microbiology 11/08/17 11:30 Influenza Type A Antigen Screen - Final Nasopharyngeal Swab - Nare, Left NEGATIVE INFLUENZA A VIRUS AG Influenza Type B Antigen Screen - Final NEGATIVE INFLUENZA B VIRUS AG *Q Meaningful Use (ADM) - VTE *Q VTE Criteria *Q: - Stroke *Q Stroke Criteria *Q: - AMI *Q AMI Criteria *Q: Problem List Initiated/Reviewed/Updated: Yes Orders Last 24hrs: Active Orders 24 hr Category Date Time Status Admission Status [Patient Status] [ADT] Stat ADT 11/08/17 12:07 Active EKG Documentation Completion [RC] STAT Care 11/08/17 11:26 Active Chest 1V Frontal [CR] Stat Exams 11/08/17 11:12 Ordered Guide Vascular Access [US] Routine Exams 11/08/17 Ordered PICC Line Insertion [CR] Stat Exams 11/08/17 11:46 Ordered FRESH FROZEN PLASMA [BBK] Stat Lab 11/08/17 12:02 Received PTT,PARTIAL THROMBOPLSTIN TIME [COAG] Routine Lab 11/08/17 11:10 Received RED BLOOD CELLS LP [BBK] Stat Lab 11/08/17 12:02 Received TYPE AND SCREEN [BBK] Stat Lab 11/08/17 12:02 Received Pantoprazole [ProTONIX IV] 80 mg Med 11/08/17 12:00 Active Sodium Chloride 0.9% [Normal Saline] 100 ml IV Q10H Sodium Chloride 0.9% [Normal Saline] 1,000 ml Med 11/08/17 12:00 Active IV ASDIRECTED Sodium Chloride 0.9% [Normal Saline] 500 ml Med 11/08/17 12:15 Active IV STAT Transfuse Fresh Frozen Plasma [COMM] Stat Oth 11/08/17 11:47 Ordered Transfuse PRBC [Transfuse Red Blood Cells] [COMM] Stat Oth 11/08/17 11:43 Ordered Medication Orders Pantoprazole Sodium 80 mg/ (Sodium Chloride) 100 mls @ 10 mls/hr IV Q10H CALIXTO Sodium Chloride (Normal Saline) 1,000 mls @ 50 mls/hr IV ASDIRECTED CALIXTO Stop: 11/08/17 15:01 Sodium Chloride (Normal Saline) 500 mls @ 999 mls/hr IV STAT CALIXTO Last Admin: 11/08/17 12:09 Dose: 999 mls/hr Assessment/Plan Comment:: 67 yo female admitted for acute blood loss anemia with GI bleed from supratheraputic INR. Patient is hemodynamically stable. Access is poor and radiology has been consulted for PICC line. Patient has been started on protonix drip, vitamin K given and FFP and pRBC have been ordered.
--- NOTE | 2017-11-08 12:45 | CR ---
EXAMINATION: Portable chest radiograph. HISTORY: low rbc FINDINGS: The trachea is midline. The cardiomediastinal silhouette is within normal limits. No pulmonary infilt rates, effusions or pneumothorax. Median sternotomy wires are noted. Osseous structures appear osteopenic. Degenerative changes noted within the shoulders. IMPRESSION: No acute cardiopulmonary process.
--- NOTE | 2017-11-08 14:07 | CR ---
EXAMINATION: Fluoro and ultrasound guided left-sided PICC line placement. HISTORY: The fractures. TECHNIQUE/FINDINGS: After written informed consent was obtained from the patient using ultrasound an d Fluoro guidance under aseptic conditions utilizing 1% lidocaine as local anesthesia left basilic ve in was accessed and 5 [place] PICC catheter was deployed with its tip in the distal superior vena cava . The catheter flushes and withdraws blood well. The catheter is flushed with the diluted heparin. T he catheter secured well. IMPRESSION: Successful Fluoro and ultrasound guided PICC line placement.
[2017-11-08] MEDS ORDERED: oxyCODONE 5 MG Tab PO ONE (14:38)
[2017-11-08] MEDS: Pantoprazole 80 MG in Sodium Chloride 0.9% 100 ML IV SCH ×2 (15:11→22:37)
[2017-11-08] MEDS ORDERED: oxyCODONE 5 MG Tab PO PRN (18:00)
[2017-11-08] MEDS: oxyCODONE 5 MG Tab PO PRN ×2 (19:23→23:23)
[2017-11-09] MEDS ORDERED: Furosemide 80 MG Tab PO ONE (00:30)
[2017-11-09] MEDS: guaiFENesin/Dextromethorphan 100-10 MG/5 ML Soln 10 ML Cup PO PRN (01:09)
[2017-11-09] MEDS: oxyCODONE 5 MG Tab PO PRN ×4 (03:28→20:54)
[2017-11-09] MEDS: Morphine 2 MG/ML Syringe IVPUSH PRN ×2 (04:36→09:56)
[2017-11-09] MEDS ORDERED: traMADol 50 MG Tab PO ONE (05:59)
--- NOTE | 2017-11-09 08:23 | PCM.PN ---
- General Info Subjective Update: Patients confusion and dizziness have improved. She complains of abdominal pain and rib pain that is chronic and not controlled by her home medications. - Review of Systems General: Reports: No Symptoms HEENT: Reports: No Symptoms Pulmonary: Reports: No Symptoms Cardiovascular: Reports: No Symptoms Gastrointestinal: Reports: No Symptoms Genitourinary: Reports: No Symptoms Musculoskeletal: Reports: Other (rib pain) Skin: Reports: No Symptoms Neurological: Reports: No Symptoms Psychiatric: Reports: No Symptoms - Patient Data Vitals - Most Recent: Last Vital Signs Temp 36.8 C 11/09/17 06:38 Pulse 79 11/08/17 12:15 Resp 12 11/09/17 06:38 BP 131/52 L 11/09/17 06:38 Pulse Ox 93 L 11/09/17 06:38 Weight - Most Recent: 66.224 kg I&O - Last 24 Hours: Intake & Output 11/08/17 11/09/17 11/09/17 22:59 06:59 14:59 Intake Total 1444 972 Output Total 2600 Balance 1444 -1628 Lab Results Last 24 Hours: Laboratory Results - last 24 hr 11/08/17 11/08/17 11/09/17 Range/Units 23:40 23:40 07:48 WBC 7.52 12.45 H (4.0-11.0) K/uL RBC 2.63 L 3.88 L (4.30-5.90) M/uL Hgb 6.6 L 10.0 L (12.0-16.0) g/dL Hct 21.4 L 31.5 L (36.0-46.0) % MCV 81.4 81.2 (80.0-98.0) fL MCH 25.1 L 25.8 L (27.0-32.0) pg MCHC 30.8 L 31.7 (31.0-37.0) g/dL RDW Std Deviation 53.5 51.1 (28.0-62.0) fl RDW Coeff of Shaun 18 H 18 H (11.0-15.0) % Plt Count 344 338 (150-400) K/uL MPV 8.90 9.10 (7.40-12.00) fL Neut % (Auto) 58.2 78.3 (48.0-80.0) % Lymph % (Auto) 31.6 12.7 L (16.0-40.0) % [place] % (Auto) 7.0 6.9 (0.0-15.0) % Eos % (Auto) 2.8 1.9 (0.0-7.0) % Baso % (Auto) 0.4 0.2 (0.0-1.5) % Neut # (Auto) 4.4 9.8 H (1.4-5.7) K/uL Lymph # (Auto) 2.4 1.6 (0.6-2.4) K/uL [place] # (Auto) 0.5 0.9 H (0.0-0.8) K/uL Eos # (Auto) 0.2 0.2 (0.0-0.7) K/uL Baso # (Auto) 0.0 0.0 (0.0-0.1) K/uL Nucleated RBC % 0.8 0.7 /100WBC Nucleated RBCs # 0 0 K/uL INR 2.35 H (0.86-1.11) Med Orders - Current: Current Medications Guaifenesin/Dextromethorphan (Robitussin Dm) 10 ml PO Q4H PRN PRN Reason: Cough Last Admin: 11/09/17 01:09 Dose: 10 ml Pantoprazole Sodium 80 mg/ (Sodium Chloride) 100 mls @ 10 mls/hr IV Q10H [place] Last Admin: 11/08/17 22:37 Dose: 10 mls/hr Morphine Sulfate (Morphine) 2 mg IVPUSH Q4H PRN PRN Reason: Pain (severe 7-10) Stop: 11/09/17 17:18 Last Admin: 11/09/17 04:36 Dose: 2 mg Ondansetron HCl (Zofran) 4 mg IVPUSH Q4H PRN PRN Reason: Nausea Oxycodone HCl (Oxycodone) 10 mg PO Q4H PRN PRN Reason: Pain Last Admin: 11/09/17 03:28 Dose: 10 mg Oxycodone HCl (Oxycontin) 20 mg PO Q12HR CALIXTO Discontinued Medications Furosemide (Lasix) 80 mg PO ONETIME ONE Stop: 11/09/17 00:31 Last Admin: 11/09/17 00:40 Dose: 80 mg Pantoprazole Sodium 80 mg/ (Sodium Chloride) 100 mls @ 10 mls/hr IV .Continuous ACLIXTO Sodium Chloride (Normal Saline) 1,000 mls @ 50 mls/hr IV ASDIRECTED CALIX[place] Stop: 11/08/17 15:01 Sodium Chloride (Normal Saline) 500 mls @ 999 mls/hr IV STAT CALIXTO Last Admin: 11/08/17 12:09 Dose: 999 mls/hr Lorazepam (Ativan) 1 mg IVPUSH ONETIME ONE Stop: 11/08/17 11:52 Last Admin: 11/08/17 12:02 Dose: 1 mg Lorazepam (Ativan) Confirm Administered Dose 2 mg .ROUTE .STK-MED ONE Stop: 11/08/17 11:53 Last Admin: 11/08/17 12:13 Dose: Not Given Oxycodone HCl (Oxycodone) 10 mg PO ONETIME ONE Stop: 11/08/17 14:39 Last Admin: 11/08/17 15:04 Dose: 10 mg Oxycodone HCl (Oxycodone) 10 mg PO Q6HR PRN PRN Reason: Pain Pantoprazole Sodium (Protonix Iv) 80 mg IVPUSH .BOLUS ONE Stop: 11/08/17 11:45 Last Admin: 11/08/17 12:03 Dose: 80 mg Phytonadione (Mephyton) 5 mg PO ONETIME ONE Stop: 11/08/17 11:58 Last Admin: 11/08/17 14:22 Dose: Not Given Phytonadione (Aquamephyton) 5 mg PO ONETIME ONE Stop: 11/08/17 12:16 Last Admin: 11/08/17 15:17 Dose: Not Given Phytonadione (Aquamephyton) 5 mg PO ONETIME ONE Stop: 11/08/17 14:16 Last Admin: 11/08/17 14:21 Dose: 5 mg Tramadol HCl (Ultram) 50 mg PO ONETIME ONE Stop: 11/09/17 06:00 Last Admin: 11/09/17 06:22 Dose: 50 mg - Exam General: Alert, Oriented HEENT: Pupils Equal, Pupils Reactive Neck: Supple, No JVD Lungs: Clear to Auscultation, Normal Respiratory Effort Cardiovascular: Regular Rhythm, Tachycardia GI/Abdominal Exam: Normal Bowel Sounds, Soft, Non-Tender, No Distention Back Exam: Normal Inspection Extremities: Normal Inspection, Normal Capillary Refill Peripheral Pulses: 2+: Radial (L), Radial (R), Dorsalis Pedis (L), Dorsalis Pedis (R) Skin: Warm, Intact Neurological: No New Focal Deficit - Problem List Review Problem List Initiated/Reviewed/Updated: Yes - Plan Plan:: 67 yo female admitted for acute blood loss anemia with GI bleed from supratheraputic INR. Patient is hemodynamically stable. Access is poor and radiology has been consulted for PICC line. Patient has been started on protonix drip, vitamin K given and FFP and pRBC have been ordered. #GI Bleed -Hb 5.2 at admission, improved to -hemodynamically stable -given pRBC & FFP, started on Protonix drip, holding Coumadin -radiology consulted for PICC line plan: -continue Protonix drip -serial Hb -monitor INR -clear liquid diet #Anemia, secondary to above -given pRBC, hemodynamically stable, asymptomatic -plan as per above #Supratherapeutic INR -INR 12.5 at admission, currently 2.35 -given Vitamin K & FFP -plan as per above #Chronic Pain -resume home medications -Morphine PRN for uncontrolled pain #History of Gastric Bypass -initially done in [facility], had revision last year in [place] plan: -obtain records -consult general surgery
[2017-11-09 08:27] LABS: CHLORIDE,CL 102 mmol/L (98-110); SODIUM,NA 138 mmol/L (136-146)
[2017-11-09] MEDS: oxyCODONE ER 20 MG TAB.ER PO SCH ×2 (08:40→20:03)
[2017-11-09] MEDS: Pantoprazole 80 MG in Sodium Chloride 0.9% 100 ML IV SCH ×2 (08:58→19:34)
--- NOTE | 2017-11-09 12:42 | PCM.CONS ---
H&P History of Present Illness - General Date of Service: 11/09/17 Admit Problem/Dx: Admission Diagnosis/Problem Admission Diagnosis/Problem GI bleed requiring more than 4 units of blood in 24 hours, ICU, or surgery Source of Information: Patient History Limitations: Reports: No Limitations - History of Present Illness Initial Comments - Free Text/Narative: Patient is a 67 yo female with a recent history of a GI bleed who presented with anemia, supratherapeutic INR, and GI bleeding. Per her report, she has been having black stools for the last 2 weeks. She presented yesterday with a hgb of 5 and an INR of 12.4. Her anticoagulation was reversed and she was given blood. Her hgb today is 10 and her INR is 1.5. She still feels weak and somewhat dizzy. Her last BM was yesterday. She denies nausea and vomiting. She has had a gastric bypass. She had an EGD and colonoscopy in September. She said they "cauterized veins in my intestines" and was told that if her INR gets supratherapeutic she could bleed again. She denies any recent exposure to viral gastroenteritis. She is stable today and complains that she is very hungry. Generalized Pain Score (Numeric/FACES): 7 - Related Data Allergies/Adverse Reactions: Allergies Allergy/AdvReac Type Severity Reaction Status Date / Time No Known Allergies Allergy Verified 11/08/17 10:49 Home Medications: Home Meds Warfarin [Coumadin] 6 mg PO BEDTIME 11/28/16 [History] DULoxetine HCl [Duloxetine HCl] 60 mg PO BEDTIME 07/18/17 [History] traMADol [Ultram] 50 mg PO Q8H #90 tablet 07/23/17 [Rx] Lisinopril [Prinivil] 30 mg PO BEDTIME 08/22/17 [History] Polyethylene Glycol 3350 [MiraLAX] 17 gm PO DAILY 08/22/17 [History] Metoprolol Tartrate [Lopressor] 50 mg PO TID tablet 08/24/17 [Rx] Spironolactone [Aldactone] 12.5 mg PO DAILY tablet 08/24/17 [Rx] Furosemide [Lasix] 80 mg PO BID 09/24/17 [History] Pantoprazole [ProTONIX] 40 mg PO DAILY 09/24/17 [History] oxyCODONE HCl [Oxycodone HCl] 10 mg PO Q6HR PRN #30 tablet 10/02/17 [Rx] oxyCODONE ER [OxyCONTIN] 20 mg PO Q12HR 11/08/17 [History] Past Medical History HEENT History: Reports: Other (See Below) Other HEENT History: no teeth or dentures Cardiovascular History: Reports: Afib, Heart Failure, Heart Valve Replacement, Hypertension Respiratory History: Reports: COPD Gastrointestinal History: Reports: GERD Other Gastrointestinal History: acid reflux Genitourinary History: Reports: 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: Musculoskeletal History: Reports: Arthritis, Back Pain, Chronic, Other (See Below) Other Musculoskeletal History: scoliosis, bulging discs, carpal tunnel, restless leg Neurological History: Reports: TIA Psychiatric History: Reports: Anxiety, Depression Endocrine/Metabolic History: Reports: None Hematologic History: Reports: Anticoagulation Therapy Immunologic History: Reports: None Oncologic (Cancer) History: Reports: Breast Other Oncologic History: right breast ca Dermatologic History: Reports: None - Past Surgical History Head Surgeries/Procedures: Reports: None GI Surgical History: Reports: Bariatric Procedure, Cholecystectomy, Other (See Below) Female Surgical History: Reports: Breast Biopsy, Tubal Ligation Musculoskeletal Surgical History: Reports: Carpal Tunnel, Other (See Below) Social & Family History - Family History Family Medical History: Noncontributory - Tobacco Use Smoking Status *Q: Former Smoker Years of Tobacco use: 50 Packs/Tins Daily: 0.5 Used Tobacco, but Quit: Yes Month Tobacco Last Used: 4 months ago Second Hand Smoke Exposure: No - Caffeine Use Caffeine Use: Reports: Coffee Caffeine Use Comment: 3-4 cups a day - Recreational Drug Use Recreational Drug Use: No - Living Situation & Occupation Living situation: Reports: , with Family Occupation: Retired H&P Review of Systems - Review of Systems: Review Of Systems: ROS reveals no pertinent complaints other than HPI. Exam - Exam Exam: See Below - Vital Signs Vital Signs: Last Vital Signs Temp 36.8 C 11/09/17 12:00 Pulse 82 11/08/17 14:15 Resp 18 11/09/17 12:00 BP 150/66 H 11/09/17 12:00 Pulse Ox 98 11/09/17 12:00 Weight: 66.224 kg - Exam Quality Assessment: Supplemental Oxygen, Central Line/PICC General: Alert, Oriented HEENT: Conjunctiva Clear, Mucosa Moist & [place], Pupils Equal, Pupils Reactive Lungs: Clear to Auscultation, Normal Respiratory Effort Cardiovascular: Irregular Rhythm GI/Abdominal Exam: Soft, Non-Tender, No Distention, No Mass Rectal (Female) Exam: Normal Rectal Tone, Black Stool, Hemorrhoids. No: Mass Back Exam: Normal Inspection Extremities: Normal Inspection Skin: Warm, Dry, Intact Neuro Extensive - Mental Status: Alert, Oriented x3, Normal Mood/Affect, Normal Cognition, Memory Intact - Patient Data Lab Results Last 24 hrs: Laboratory Results - last 24 hr 11/08/17 11/08/17 11/09/17 Range/Units 23:40 23:40 07:48 WBC 7.52 12.45 H (4.0-11.0) K/uL RBC 2.63 L 3.88 L (4.30-5.90) M/uL Hgb 6.6 L 10.0 L (12.0-16.0) g/dL Hct 21.4 L 31.5 L (36.0-46.0) % MCV 81.4 81.2 (80.0-98.0) fL MCH 25.1 L 25.8 L (27.0-32.0) pg MCHC 30.8 L 31.7 (31.0-37.0) g/dL RDW Std Deviation 53.5 51.1 (28.0-62.0) fl RDW Coeff of Shaun 18 H 18 H (11.0-15.0) % Plt Count 344 338 (150-400) K/uL MPV 8.90 9.10 (7.40-12.00) fL Neut % (Auto) 58.2 78.3 (48.0-80.0) % Lymph % (Auto) 31.6 12.7 L (16.0-40.0) % [place] % (Auto) 7.0 6.9 (0.0-15.0) % Eos % (Auto) 2.8 1.9 (0.0-7.0) % Baso % (Auto) 0.4 0.2 (0.0-1.5) % Neut # (Auto) 4.4 9.8 H (1.4-5.7) K/uL Lymph # (Auto) 2.4 1.6 (0.6-2.4) K/uL [place] # (Auto) 0.5 0.9 H (0.0-0.8) K/uL Eos # (Auto) 0.2 0.2 (0.0-0.7) K/uL Baso # (Auto) 0.0 0.0 (0.0-0.1) K/uL Nucleated RBC % 0.8 0.7 /100WBC Nucleated RBCs # 0 0 K/uL INR 2.35 H (0.86-1.11) Sodium (136-146) mmol/L Potassium (3.5-5.1) mmol/L Chloride (98-110) mmol/L Carbon Dioxide (21-31) mmol/L BUN (6.0-23.0) mg/dL Creatinine (0.6-1.5) mg/dL Est Cr Clr Drug Dosing mL/min Estimated GFR (MDRD) ml/min Glucose (60-110) mg/dL Calcium (8.8-10.8) mg/dL 11/09/17 11/09/17 Range/Units 07:48 09:35 WBC (4.0-11.0) K/uL RBC (4.30-5.90) M/uL Hgb (12.0-16.0) g/dL Hct (36.0-46.0) % MCV (80.0-98.0) fL MCH (27.0-32.0) pg MCHC (31.0-37.0) g/dL RDW Std Deviation (28.0-62.0) fl RDW Coeff of Shaun (11.0-15.0) % Plt Count (150-400) K/uL MPV (7.40-12.00) fL Neut % (Auto) (48.0-80.0) % Lymph % (Auto) (16.0-40.0) % [place] % (Auto) (0.0-15.0) % Eos % (Auto) (0.0-7.0) % Baso % (Auto) (0.0-1.5) % Neut # (Auto) (1.4-5.7) K/uL Lymph # (Auto) (0.6-2.4) K/uL [place] # (Auto) (0.0-0.8) K/uL Eos # (Auto) (0.0-0.7) K/uL Baso # (Auto) (0.0-0.1) K/uL Nucleated RBC % /100WBC Nucleated RBCs # K/uL INR 1.56 H (0.86-1.11) Sodium 138 (136-146) mmol/L Potassium 3.5 (3.5-5.1) mmol/L Chloride 102 (98-110) mmol/L Carbon Dioxide 26 (21-31) mmol/L BUN 22 (6.0-23.0) mg/dL Creatinine 0.9 (0.6-1.5) mg/dL Est Cr Clr Drug Dosing 43.57 mL/min Estimated GFR (MDRD) > 60.0 ml/min Glucose 110 (60-110) mg/dL Calcium 8.7 L (8.8-10.8) mg/dL Result Diagrams: 11/09/17 07:48 11/09/17 07:48 Consult PN Assessment/Plan Procedures: Procedures AIRWAY INHALATION TREATMENT (08/22/17) ASSAY OF FREE THYROXINE (05/05/16) ASSAY OF IRON (06/16/16) ASSAY OF LACTIC ACID (07/20/17) ASSAY OF MAGNESIUM (08/22/17) ASSAY OF NATRIURETIC PEPTIDE (09/24/17) ASSAY OF TROPONIN QUANT (09/24/17) ASSAY THYROID STIM HORMONE (05/05/16) CHEST X-RAY 1 VIEW FRONTAL (09/24/17) CHEST X-RAY 2VW FRONTAL&LATL (07/20/17) COMPLETE CBC W/AUTO DIFF WBC (10/10/17) COMPREHEN METABOLIC PANEL (09/24/17) CT HEAD/BRAIN W/O DYE (09/25/17) DRUG TEST PRSMV DIR OPT OBS (07/20/17) ELECTROCARDIOGRAM TRACING (10/02/17) EMERGENCY DEPT VISIT (10/02/17) EMERGENCY DEPT VISIT (09/25/17) EMERGENCY DEPT VISIT (09/24/17) EMERGENCY DEPT VISIT (01/15/17) EMERGENCY DEPT VISIT (12/11/16) EMERGENCY DEPT VISIT (11/28/16) GLYCOSYLATED HEMOGLOBIN TEST (07/20/17) HYDRATE IV INFUSION ADD-ON (08/22/17) LIPID PANEL (07/20/17) METABOLIC PANEL TOTAL CA (10/10/17) OFFICE/OUTPATIENT VISIT EST (09/12/17) PROTHROMBIN TIME (10/17/17) ROUTINE VENIPUNCTURE (10/17/17) THER/PROPH/DIAG INJ IV PUSH (08/31/17) THER/PROPH/DIAG INJ SC/IM (01/15/17) TTE W/DOPPLER COMPLETE (07/20/17) TX/PRO/DX INJ NEW DRUG ADDON (08/22/17) UR ALBUMIN SEMIQUANTITATIVE (05/05/16) URINALYSIS AUTO W/SCOPE (08/22/17) X-RAY EXAM HIP UNI 1 VIEW (09/25/17) X-RAY EXAM HIP UNI 2-3 VIEWS (11/28/16) X-RAY EXAM L-S SPINE 2/3 VWS (01/15/17) X-RAY EXAM OF FINGER(S) (11/28/16) X-RAY EXAM OF SHOULDER (11/28/16) X-RAY EXAM RIBS UNI 2 VIEWS (09/25/17) (1) GI bleeding SNOMED Code(s): 42204257 Code(s): K92.2 - GASTROINTESTINAL HEMORRHAGE, UNSPECIFIED Current Visit: Yes Problem List Initiated/Reviewed/Updated: Yes Plan: Patient is a 67 yo female with a GI bleed. I will perform a diagnostic EGD to rule out a source from her gastric pouch or the intestinal anastomosis. I will not be able to rule out a lesion/source of bleeding in the remnant stomach or duodenum. A colonoscopy at this time would be difficult given the dark tarry stool in her colon. She could be bleeding from a proximal colonic lesion. I would expect her to have bright red or maroon stool should this be coming from the distal colon (diverticulosis or AVM). We discussed the procedure, its benefits, limitations, and risks including bleeding or perforation. The patient verbalized understanding and wishes to proceed. I discussed this with her daughter as well who agreed. She should remain on a PPI for now, stay NPO until after the procedure, and continue IV resuscitation.
--- NOTE | 2017-11-09 13:00 | PCM.PREANE ---
Preanesthetic Assessment - Anesthesia/Transfusion/Family Hx Anesthesia History: Prior Anesthesia Without Reaction Family History of Anesthesia Reaction: No Transfusion History: Prior Transfusion Without Reaction Intubation History: Unknown - Review of Systems General: No Symptoms Pulmonary: No Symptoms Cardiovascular: No Symptoms Gastrointestinal: Melena Neurological: No Symptoms Other: Reports: None - Physical Assessment O2 Sat by Pulse Oximetry: 98 Respiratory Rate: 18 Temperature: 36.8 C Vital Signs: Last Vital Signs Temp 36.8 C 11/09/17 12:00 Pulse 82 11/08/17 14:15 Resp 18 11/09/17 12:00 BP 150/66 H 11/09/17 12:00 Pulse Ox 98 11/09/17 12:00 Height: 1.5 m Weight: 66.224 kg ASA Class: 3E Mental Status: Alert & Oriented x3 Airway Class: Mallampati = 2 Dentition: Reports: Edentulous Thyro-Mental Finger Breadths: 3 Mouth Opening Finger Breadths: 3 ROM/Head Extension: Full Lungs: Clear to Auscultation, Normal Respiratory Effort Cardiovascular: Regular Rate, Regular Rhythm - Lab Values: Laboratory Last Values WBC 12.45 K/uL (4.0-11.0) H 11/09/17 07:48 RBC 3.88 M/uL (4.30-5.90) L 11/09/17 07:48 Hgb 10.0 g/dL (12.0-16.0) L 11/09/17 07:48 Hct 31.5 % (36.0-46.0) L 11/09/17 07:48 MCV 81.2 fL (80.0-98.0) 11/09/17 07:48 MCH 25.8 pg (27.0-32.0) L 11/09/17 07:48 MCHC 31.7 g/dL (31.0-37.0) 11/09/17 07:48 RDW Std Deviation 51.1 fl (28.0-62.0) 11/09/17 07:48 RDW Coeff of Shaun 18 % (11.0-15.0) H 11/09/17 07:48 Plt Count 338 K/uL (150-400) 11/09/17 07:48 MPV 9.10 fL (7.40-12.00) 11/09/17 07:48 Neut % (Auto) 78.3 % (48.0-80.0) 11/09/17 07:48 Lymph % (Auto) 12.7 % (16.0-40.0) L 11/09/17 07:48 [place] % (Auto) 6.9 % (0.0-15.0) 11/09/17 07:48 Eos % (Auto) 1.9 % (0.0-7.0) 11/09/17 07:48 Baso % (Auto) 0.2 % (0.0-1.5) 11/09/17 07:48 Neut # (Auto) 9.8 K/uL (1.4-5.7) H 11/09/17 07:48 Lymph # (Auto) 1.6 K/uL (0.6-2.4) 11/09/17 07:48 [place] # (Auto) 0.9 K/uL (0.0-0.8) H 11/09/17 07:48 Eos # (Auto) 0.2 K/uL (0.0-0.7) 11/09/17 07:48 Baso # (Auto) 0.0 K/uL (0.0-0.1) 11/09/17 07:48 Nucleated RBC % 0.7 /100WBC 11/09/17 07:48 Nucleated RBCs # 0 K/uL 11/09/17 07:48 INR 1.56 (0.86-1.11) H 11/09/17 09:35 APTT 45.0 SEC (18.6-31.3) H 11/08/17 11:10 Sodium 138 mmol/L (136-146) 11/09/17 07:48 Potassium 3.5 mmol/L (3.5-5.1) 11/09/17 07:48 Chloride 102 mmol/L (98-110) 11/09/17 07:48 Carbon Dioxide 26 mmol/L (21-31) 11/09/17 07:48 BUN 22 mg/dL (6.0-23.0) 11/09/17 07:48 Creatinine 0.9 mg/dL (0.6-1.5) 11/09/17 07:48 Est Cr Clr Drug Dosing 43.57 mL/min 11/09/17 07:48 Estimated GFR (MDRD) > 60.0 ml/min 11/09/17 07:48 Glucose 110 mg/dL (60-110) 11/09/17 07:48 Calcium 8.7 mg/dL (8.8-10.8) L 11/09/17 07:48 Total Bilirubin 0.2 mg/dL (0.1-1.5) 11/08/17 11:10 AST 15 IU/L (5-40) 11/08/17 11:10 ALT 14 IU/L (8-54) 11/08/17 11:10 Alkaline Phosphatase 75 (40-150) 11/08/17 11:10 B-Natriuretic Peptide 597 PG/ML (<100) H 11/08/17 11:10 Total Protein 6.2 g/dL (6.0-8.0) 11/08/17 11:10 Albumin 3.5 g/dL (3.4-4.8) 11/08/17 11:10 Globulin 2.7 g/dL (2.0-3.5) 11/08/17 11:10 Albumin/Globulin Ratio 1.3 (1.3-2.8) 11/08/17 11:10 Blood Type A POSITIVE 11/08/17 12:02 Antibody Screen NEGATIVE 11/08/17 12:02 Crossmatch See Detail 11/08/17 12:02 - Allergies Allergies/Adverse Reactions: Allergies Allergy/AdvReac Type Severity Reaction Status Date / Time No Known Allergies Allergy Verified 11/08/17 10:49 - Blood Blood Available: No - Anesthesia Plan Pre-Op Medication Ordered: None - Acknowledgements Anesthesia Type Planned: MAC Pt an Appropriate Candidate for the Planned Anesthesia: Yes Alternatives and Risks of Anesthesia Discussed w Pt/Guardian: Yes Pt/Guardian Understands and Agrees with Anesthesia Plan: Yes PreAnesthesia Questionnaire HEENT History: Reports: Other (See Below) Other HEENT History: no teeth or dentures Cardiovascular History: Reports: Afib, Heart Failure, Heart Valve Replacement, Hypertension Respiratory History: Reports: COPD, SOB Gastrointestinal History: Reports: GERD Other Gastrointestinal History: acid reflux, recent melena- sec. to too much anticoags. 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: Musculoskeletal History: Reports: Arthritis, Back Pain, Chronic, Other (See Below) Other Musculoskeletal History: scoliosis, bulging discs, carpal tunnel, restless leg Neurological History: Reports: TIA Psychiatric History: Reports: Anxiety, Depression Endocrine/Metabolic History: Reports: None Hematologic History: Reports: Anticoagulation Therapy Immunologic History: Reports: None Oncologic (Cancer) History: Reports: Breast Other Oncologic History: right breast ca Dermatologic History: Reports: None - Past Surgical History Head Surgeries/Procedures: Reports: None Cardiovascular Surgical History: Reports: Valve Replacement (AVR '01) GI Surgical History: Reports: Bariatric Procedure, Cholecystectomy, Other (See Below) Female Surgical History: Reports: Tubal Ligation Musculoskeletal Surgical History: Reports: Carpal Tunnel, Other (See Below) - SUBSTANCE USE Smoking Status *Q: Former Smoker Tobacco Use Within Last Twelve Months: Cigarettes Second Hand Smoke Exposure: No Recreational Drug Use History: No - HOME MEDS Home Medications: Home Meds Warfarin [Coumadin] 6 mg PO BEDTIME 11/28/16 [History] DULoxetine HCl [Duloxetine HCl] 60 mg PO BEDTIME 07/18/17 [History] traMADol [Ultram] 50 mg PO Q8H #90 tablet 07/23/17 [Rx] Lisinopril [Prinivil] 30 mg PO BEDTIME 08/22/17 [History] Polyethylene Glycol 3350 [MiraLAX] 17 gm PO DAILY 08/22/17 [History] Metoprolol Tartrate [Lopressor] 50 mg PO TID tablet 08/24/17 [Rx] Spironolactone [Aldactone] 12.5 mg PO DAILY tablet 08/24/17 [Rx] Furosemide [Lasix] 80 mg PO BID 09/24/17 [History] Pantoprazole [ProTONIX] 40 mg PO DAILY 09/24/17 [History] oxyCODONE HCl [Oxycodone HCl] 10 mg PO Q6HR PRN #30 tablet 10/02/17 [Rx] oxyCODONE ER [OxyCONTIN] 20 mg PO Q12HR 11/08/17 [History] - CURRENT (IN HOUSE) MEDS Current Meds: Current Medications Guaifenesin/Dextromethorphan (Robitussin Dm) 10 ml PO Q4H PRN PRN Reason: Cough Last Admin: 11/09/17 01:09 Dose: 10 ml Pantoprazole Sodium 80 mg/ (Sodium Chloride) 100 mls @ 10 mls/hr IV Q10H [facility] Stop: 01/04/18 13:59 Last Admin: 11/09/17 08:58 Dose: 10 mls/hr Pantoprazole Sodium 80 mg/ (Sodium Chloride) 50 mls @ 5 mls/hr IV Q10H [facility] Morphine Sulfate (Morphine) 2 mg IVPUSH Q4H PRN PRN Reason: Pain (severe 7-10) Stop: 11/09/17 17:18 Last Admin: 11/09/17 09:56 Dose: 2 mg Ondansetron HCl (Zofran) 4 mg IVPUSH Q4H PRN PRN Reason: Nausea Oxycodone HCl (Oxycodone) 10 mg PO Q4H PRN PRN Reason: Pain Last Admin: 11/09/17 12:07 Dose: 10 mg Oxycodone HCl (Oxycontin) 20 mg PO Q12HR [facility] Last Admin: 11/09/17 08:40 Dose: 20 mg Discontinued Medications Furosemide (Lasix) 80 mg PO ONETIME ONE Stop: 11/09/17 00:31 Last Admin: 11/09/17 00:40 Dose: 80 mg Pantoprazole Sodium 80 mg/ (Sodium Chloride) 100 mls @ 10 mls/hr IV .Continuous [facility] Sodium Chloride (Normal Saline) 1,000 mls @ 50 mls/hr IV ASDIRECTED [facility] Stop: 11/08/17 15:01 Last Infusion: 11/08/17 13:45 Dose: 0 mls/hr Sodium Chloride (Normal Saline) 500 mls @ 999 mls/hr IV STAT [facility] Last Admin: 11/08/17 12:09 Dose: 999 mls/hr Pantoprazole Sodium 80 mg/ (Sodium Chloride) 50 mls @ 5 mls/hr IV Q10H [facility] Lorazepam (Ativan) 1 mg IVPUSH ONETIME ONE Stop: 11/08/17 11:52 Last Admin: 11/08/17 12:02 Dose: 1 mg Lorazepam (Ativan) Confirm Administered Dose 2 mg .ROUTE .STK-MED ONE Stop: 11/08/17 11:53 Last Admin: 11/08/17 12:13 Dose: Not Given Oxycodone HCl (Oxycodone) 10 mg PO ONETIME ONE Stop: 11/08/17 14:39 Last Admin: 11/08/17 15:04 Dose: 10 mg Oxycodone HCl (Oxycodone) 10 mg PO Q6HR PRN PRN Reason: Pain Pantoprazole Sodium (Protonix Iv) 80 mg IVPUSH .BOLUS ONE Stop: 11/08/17 11:45 Last Admin: 11/08/17 12:03 Dose: 80 mg Phytonadione (Mephyton) 5 mg PO ONETIME ONE Stop: 11/08/17 11:58 Last Admin: 11/08/17 14:22 Dose: Not Given Phytonadione (Aquamephyton) 5 mg PO ONETIME ONE Stop: 11/08/17 12:16 Last Admin: 11/08/17 15:17 Dose: Not Given Phytonadione (Aquamephyton) 5 mg PO ONETIME ONE Stop: 11/08/17 14:16 Last Admin: 11/08/17 14:21 Dose: 5 mg Tramadol HCl (Ultram) 50 mg PO ONETIME ONE Stop: 11/09/17 06:00 Last Admin: 11/09/17 06:22 Dose: 50 mg
[2017-11-09] MEDS ORDERED: Propofol 200 MG/20 ML SDV ONE (13:23)
[2017-11-09] MEDS ORDERED: Midazolam 1 MG/ML 2 ML SDV ONE (13:52)
--- NOTE | 2017-11-09 14:12 | PCM.POSTAN ---
POST ANESTHESIA ASSESSMENT - MENTAL STATUS Mental Status: Alert, Oriented - VITAL SIGNS Pulse Rate: 122 (afib with pvc's as per preop) SaO2: 96 Resp Rate: 20 Blood Pressure: 94/51 - RESPIRATORY Respiratory Status: Respiratory Rate WNL, Airway Patent, O2 Saturation Stable - CARDIOVASCULAR CV Status: Pulse Rate WNL, Blood Pressure Stable - GASTROINTESTINAL GI Status: No Symptoms - POST OP HYDRATION Hydration Status: Adequate & Stable
--- NOTE | 2017-11-09 14:34 | PCM.OPNOTE ---
- General Post-Op/Procedure Note Date of Surgery/Procedure: 11/09/17 Operative Procedure(s): Diagnostic EGD Findings: Normal stomach, GJ anastamosis, and proximal Chari en Y limb Pre Op Diagnosis: GI bleed Post-Op Diagnosis: same Anesthesia Technique: MAC Primary Surgeon: Park Edgar Condition: Good Free Text/Narrative:: Intake & Output 11/08/17 11/09/17 11/09/17 22:59 06:59 14:59 Intake Total 1444 972 Output Total 0007 Balance 0566 -7601
--- NOTE | 2017-11-09 14:39 | PCM.SN ---
- Free Text/Narrative Note: Patient had a normal EGD. Her GI bleed is most likely from the colon, distal small bowel or remnant stomach and BP limb. As long as she remains stable, she can undergo an outpatient colonoscopy. If she bleeds again when attempting to start her anti-coagulation in house, I would perform a CT of the abdomen/pelvis with IV contrast. Given her multiple health issues and history of difficult colonoscopies, she should be referred to [facility] for her colonoscopy and further workup. Will sign off at this time. Please call with any questions or concerns.
--- NOTE | 2017-11-09 18:36 | OR ---
SURGEON: PARK EDGAR MD DATE OF PROCEDURE: 11/09/2017 PREOPERATIVE DIAGNOSIS: Gastrointestinal bleed. POSTOPERATIVE DIAGNOSIS: Normal upper endoscopy. PROCEDURE PERFORMED: Diagnostic esophagogastroduodenoscopy. ENDOSCOPIST: Park Edgar MD. ANESTHESIA: MAC. INSTRUMENT USED: Olympus endoscope. EXTENT OF EXAM: 80 cm from the teeth down the Gera limb. PREPARATION: Good. LIMITATIONS: None. INDICATION FOR EXAMINATION: The patient is a 67-year-old female, who presented yesterday with acute blood loss anemia secondary to a GI bleed and supratherapeutic INR. She was given given blood and her anticoagulant reversed. Her past medical history is confusing. Within the last year, she has had a recent GI bleed with some sort of workup in [place], [place]. The decision was made to perform a diagnostic EGD to look for source of the bleed. The patient and I discussed the procedure as well as expected perioperative course. We discussed the risks, including bleeding or perforation. The patient verbalized understanding and wishes to proceed. PROCEDURE IN DETAIL: The patient was brought into the OR and placed in the OR cart in a beach chair position. A time-out was completed verifying the patient's name, age, date of , allergies, and procedure to be performed. Monitored anesthesia care was induced and a bite block placed in the patient's mouth. Oxygen was provided via nasal cannula throughout the procedure. After adequate sedation was achieved, a well lubricated endoscope was placed in the patient's mouth and advanced under direct visualization down the Gera-en-Y limb. I was able to reach to depth of 80 cm before being unable to go any further. A photograph was taken of my distal extent of the gera limb. The scope was then fully withdrawn while examining the upper GI tract. The patient's proximal Gera limb appeared healthy with no evidence of inflammation or ulceration. The GJ anastomosis was healthy with no evidence of breakdown, ulcers or, stigmata of recent bleed. The pouch appeared normal in size with no pathology. A photograph was taken of the GE junction and the distal esophagus appeared normal. The scope was then removed from the patient and the procedure was terminated. ENDOSCOPIC DIAGNOSES: Normal esophagogastroduodenoscopy. RECOMMENDATIONS: The patient can be transferred back to the ICU. I am okay with her starting a clear liquid diet. Further care as per the medicine team. LEMEASH / MODL /[id number]
[2017-11-10] MEDS: oxyCODONE 5 MG Tab PO PRN ×4 (01:02→13:46)
[2017-11-10] MEDS: Melatonin 3 MG Tab PO PRN (01:03)
[2017-11-10] MEDS: Pantoprazole 80 MG in Sodium Chloride 0.9% 100 ML IV SCH (05:08)
--- NOTE | 2017-11-10 08:14 | PCM.PN ---
- General Info Admission Dx/Problem (Free Text): Admission Diagnosis/Problem Admission Diagnosis/Problem GI bleed requiring more than 4 units of blood in 24 hours, ICU, or surgery Subjective Update: Patients confusion and dizziness have improved. She complains of abdominal pain and rib pain that is chronic and not controlled by her home medications. She is very anxious now - Review of Systems General: Reports: No Symptoms HEENT: Reports: No Symptoms Pulmonary: Reports: No Symptoms Cardiovascular: Reports: Palpitations Gastrointestinal: Reports: No Symptoms Genitourinary: Reports: No Symptoms Musculoskeletal: Reports: Other (rib pain) Skin: Reports: No Symptoms Neurological: Reports: No Symptoms Psychiatric: Reports: Anxiety - Patient Data Vitals - Most Recent: Last Vital Signs Temp 36.1 C 11/10/17 08:00 Pulse 109 H 11/10/17 08:00 Resp 19 11/10/17 08:00 BP 121/48 L 11/10/17 08:00 Pulse Ox 97 11/10/17 08:00 Weight - Most Recent: 65.907 kg I&O - Last 24 Hours: Intake & Output 11/09/17 11/10/17 11/10/17 22:59 06:59 14:59 Intake Total 618 340 Output Total 1300 250 Balance -682 90 Lab Results Last 24 Hours: Laboratory Results - last 24 hr 11/09/17 11/09/17 11/09/17 Range/Units 07:48 07:48 09:35 WBC 12.45 H (4.0-11.0) K/uL RBC 3.88 L (4.30-5.90) M/uL Hgb 10.0 L (12.0-16.0) g/dL Hct 31.5 L (36.0-46.0) % MCV 81.2 (80.0-98.0) fL MCH 25.8 L (27.0-32.0) pg MCHC 31.7 (31.0-37.0) g/dL RDW Std Deviation 51.1 (28.0-62.0) fl RDW Coeff of Shaun 18 H (11.0-15.0) % Plt Count 338 (150-400) K/uL MPV 9.10 (7.40-12.00) fL Neut % (Auto) 78.3 (48.0-80.0) % Lymph % (Auto) 12.7 L (16.0-40.0) % [place] % (Auto) 6.9 (0.0-15.0) % Eos % (Auto) 1.9 (0.0-7.0) % Baso % (Auto) 0.2 (0.0-1.5) % Neut # (Auto) 9.8 H (1.4-5.7) K/uL Lymph # (Auto) 1.6 (0.6-2.4) K/uL Benton # (Auto) 0.9 H (0.0-0.8) K/uL Eos # (Auto) 0.2 (0.0-0.7) K/uL Baso # (Auto) 0.0 (0.0-0.1) K/uL Nucleated RBC % 0.7 /100WBC Nucleated RBCs # 0 K/uL INR 1.56 H (0.86-1.11) Sodium 138 (136-146) mmol/L Potassium 3.5 (3.5-5.1) mmol/L Chloride 102 (98-110) mmol/L Carbon Dioxide 26 (21-31) mmol/L BUN 22 (6.0-23.0) mg/dL Creatinine 0.9 (0.6-1.5) mg/dL Est Cr Clr Drug Dosing 43.57 mL/min Estimated GFR (MDRD) > 60.0 ml/min Glucose 110 (60-110) mg/dL Calcium 8.7 L (8.8-10.8) mg/dL 11/09/17 11/10/17 11/10/17 Range/Units 20:13 05:06 05:06 WBC 10.02 8.25 (4.0-11.0) K/uL RBC 3.94 L 3.85 L (4.30-5.90) M/uL Hgb 10.2 L 9.9 L (12.0-16.0) g/dL Hct 32.0 L 31.5 L (36.0-46.0) % MCV 81.2 81.8 (80.0-98.0) fL MCH 25.9 L 25.7 L (27.0-32.0) pg MCHC 31.9 31.4 (31.0-37.0) g/dL RDW Std Deviation 52.6 53.8 (28.0-62.0) fl RDW Coeff of Shaun 18 H 18 H (11.0-15.0) % Plt Count 362 346 (150-400) K/uL MPV 9.20 9.20 (7.40-12.00) fL Neut % (Auto) 65.8 62.4 (48.0-80.0) % Lymph % (Auto) 23.0 24.0 (16.0-40.0) % Benton % (Auto) 9.3 10.7 (0.0-15.0) % Eos % (Auto) 1.7 2.7 (0.0-7.0) % Baso % (Auto) 0.2 0.2 (0.0-1.5) % Neut # (Auto) 6.6 H 5.2 (1.4-5.7) K/uL Lymph # (Auto) 2.3 2.0 (0.6-2.4) K/uL Benton # (Auto) 0.9 H 0.9 H (0.0-0.8) K/uL Eos # (Auto) 0.2 0.2 (0.0-0.7) K/uL Baso # (Auto) 0.0 0.0 (0.0-0.1) K/uL Nucleated RBC % 0.0 0.0 /100WBC Nucleated RBCs # 0 0 K/uL INR (0.86-1.11) Sodium 141 (136-146) mmol/L Potassium 4.1 (3.5-5.1) mmol/L Chloride 105 (98-110) mmol/L Carbon Dioxide 26 (21-31) mmol/L BUN 20 (6.0-23.0) mg/dL Creatinine 1.1 (0.6-1.5) mg/dL Est Cr Clr Drug Dosing 35.65 mL/min Estimated GFR (MDRD) 49.5 ml/min Glucose 112 H (60-110) mg/dL Calcium 8.5 L (8.8-10.8) mg/dL 11/10/17 Range/Units 05:06 WBC (4.0-11.0) K/uL RBC (4.30-5.90) M/uL Hgb (12.0-16.0) g/dL Hct (36.0-46.0) % MCV (80.0-98.0) fL MCH (27.0-32.0) pg MCHC (31.0-37.0) g/dL RDW Std Deviation (28.0-62.0) fl RDW Coeff of Shaun (11.0-15.0) % Plt Count (150-400) K/uL MPV (7.40-12.00) fL Neut % (Auto) (48.0-80.0) % Lymph % (Auto) (16.0-40.0) % Benton % (Auto) (0.0-15.0) % Eos % (Auto) (0.0-7.0) % Baso % (Auto) (0.0-1.5) % Neut # (Auto) (1.4-5.7) K/uL Lymph # (Auto) (0.6-2.4) K/uL Benton # (Auto) (0.0-0.8) K/uL Eos # (Auto) (0.0-0.7) K/uL Baso # (Auto) (0.0-0.1) K/uL Nucleated RBC % /100WBC Nucleated RBCs # K/uL INR 1.21 H (0.86-1.11) Sodium (136-146) mmol/L Potassium (3.5-5.1) mmol/L Chloride (98-110) mmol/L Carbon Dioxide (21-31) mmol/L BUN (6.0-23.0) mg/dL Creatinine (0.6-1.5) mg/dL Est Cr Clr Drug Dosing mL/min Estimated GFR (MDRD) ml/min Glucose (60-110) mg/dL Calcium (8.8-10.8) mg/dL Med Orders - Current: Current Medications Guaifenesin/Dextromethorphan (Robitussin Dm) 10 ml PO Q4H PRN PRN Reason: Cough Last Admin: 11/09/17 01:09 Dose: 10 ml Melatonin (Melatonin) 9 mg PO BEDTIME PRN PRN Reason: Insomnia Last Admin: 11/10/17 01:03 Dose: 9 mg Ondansetron HCl (Zofran) 4 mg IVPUSH Q4H PRN PRN Reason: Nausea Oxycodone HCl (Oxycodone) 10 mg PO Q4H PRN PRN Reason: Pain Last Admin: 11/10/17 05:09 Dose: 10 mg Oxycodone HCl (Oxycontin) 20 mg PO Q12HR [facility] Last Admin: 11/09/17 20:03 Dose: 20 mg Pantoprazole Sodium (Protonix Iv) 40 mg IVPUSH TID [facility] Discontinued Medications Furosemide (Lasix) 80 mg PO ONETIME ONE Stop: 11/09/17 00:31 Last Admin: 11/09/17 00:40 Dose: 80 mg Pantoprazole Sodium 80 mg/ (Sodium Chloride) 100 mls @ 10 mls/hr IV .Continuous [facility] Pantoprazole Sodium 80 mg/ (Sodium Chloride) 100 mls @ 10 mls/hr IV Q10H [facility] Stop: 11/10/17 13:59 Last Admin: 11/10/17 05:08 Dose: 10 mls/hr Sodium Chloride (Normal Saline) 1,000 mls @ 50 mls/hr IV ASDIRECTED [facility] Stop: 11/08/17 15:01 Last Infusion: 11/08/17 13:45 Dose: 0 mls/hr Sodium Chloride (Normal Saline) 500 mls @ 999 mls/hr IV STAT [facility] Last Admin: 11/08/17 12:09 Dose: 999 mls/hr Pantoprazole Sodium 80 mg/ (Sodium Chloride) 50 mls @ 5 mls/hr IV Q10H [facility] Pantoprazole Sodium 80 mg/ (Sodium Chloride) 50 mls @ 5 mls/hr IV Q10H [facility] Lorazepam (Ativan) 1 mg IVPUSH ONETIME ONE Stop: 11/08/17 11:52 Last Admin: 11/08/17 12:02 Dose: 1 mg Lorazepam (Ativan) Confirm Administered Dose 2 mg .ROUTE .STK-MED ONE Stop: 11/08/17 11:53 Last Admin: 11/08/17 12:13 Dose: Not Given Midazolam HCl (Versed 1 Mg/Ml) Confirm Administered Dose 2 mg .ROUTE .STK-MED ONE Stop: 11/09/17 13:53 Morphine Sulfate (Morphine) 2 mg IVPUSH Q4H PRN PRN Reason: Pain (severe 7-10) Stop: 11/09/17 17:18 Last Admin: 11/09/17 09:56 Dose: 2 mg Oxycodone HCl (Oxycodone) 10 mg PO ONETIME ONE Stop: 11/08/17 14:39 Last Admin: 11/08/17 15:04 Dose: 10 mg Oxycodone HCl (Oxycodone) 10 mg PO Q6HR PRN PRN Reason: Pain Pantoprazole Sodium (Protonix Iv) 80 mg IVPUSH .BOLUS ONE Stop: 11/08/17 11:45 Last Admin: 11/08/17 12:03 Dose: 80 mg Phytonadione (Mephyton) 5 mg PO ONETIME ONE Stop: 11/08/17 11:58 Last Admin: 11/08/17 14:22 Dose: Not Given Phytonadione (Aquamephyton) 5 mg PO ONETIME ONE Stop: 11/08/17 12:16 Last Admin: 11/08/17 15:17 Dose: Not Given Phytonadione (Aquamephyton) 5 mg PO ONETIME ONE Stop: 11/08/17 14:16 Last Admin: 11/08/17 14:21 Dose: 5 mg Propofol (Diprivan 20 Ml) Confirm Administered Dose 200 mg .ROUTE .STK-MED ONE Stop: 11/09/17 13:24 Tramadol HCl (Ultram) 50 mg PO ONETIME ONE Stop: 11/09/17 06:00 Last Admin: 11/09/17 06:22 Dose: 50 mg - Exam General: Alert, Oriented, No Acute Distress HEENT: Pupils Equal, Pupils Reactive, Mucous Membr. Moist/Novelty Neck: Supple Lungs: Clear to Auscultation, Normal Respiratory Effort Cardiovascular: Irregular Rhythm, Tachycardia GI/Abdominal Exam: Normal Bowel Sounds, Soft, Non-Tender Extremities: Normal Inspection, Normal Capillary Refill Peripheral Pulses: 2+: Radial (L), Radial (R) Skin: Warm, Dry, Intact Neurological: No New Focal Deficit Psy/Mental Status: Anxious - Problem List Review Problem List Initiated/Reviewed/Updated: Yes - My Orders Last 24 Hours: My Active Orders 11/10/17 14:00 Pantoprazole [ProTONIX IV] 40 mg IVPUSH TID - Plan Plan:: 67 yo female admitted for acute blood loss anemia with GI bleed from supratheraputic INR. Patient is hemodynamically stable. Access is poor and radiology has been consulted for PICC line. Patient has been on protonix drip, vitamin K given and FFP and pRBC have been ordered. #GI Bleed -given pRBC & FFP, started on Protonix drip, holding Coumadin -PICC line was placed due to poor access -Hb ranging from 9.9-10.2 after 4 units pRBC, bp stable, boderline tachycardia -General surgery consulted for EGD, performed 11/09/17, no source of bleed found plan: -due to shortage of Protonix drip we will switch to Protonix 40 mg IV TID -continue to monitor Hb and restart Protonix drip if Hb declines significantly -monitor INR -clear liquid diet -once discharged patient will be instructed to f/u in [place] for colonoscopy since that is where she had bariatric surgery revision 1 year ago #Anemia, secondary to above -Hb stable -plan as per above #History of Gastric Bypass -initially done in [place], had revision last year in [place] plan: -outpatient f/u in [place] at discharge #Subtherapeutic INR -Supratherapeutic at admission with INR 12.5, given Vitamin K & FFP -INR today 1.25 plan -as per rec's of E-ICU we will start Lovenox as bridge for Coumadin due to patients history of mechanical heart valve, high risk of clotting and recent administration of Vitamin K #AF with RVR -restart home Metoprolol -start home coumadin and Lovenox as bridge -consult cardio if unable to control hr #Chronic Pain -resume home medications -Dilaudid PRN for uncontrolled pain #Anxiety -likely secondary to heart palpitations and RVR -patient refusing Ativan plan -control hr as per above -start Dilaudid 1 mg IV PRN for pain control
[2017-11-10] MEDS: oxyCODONE ER 20 MG TAB.ER PO SCH ×2 (08:41→20:26)
[2017-11-10] MEDS: Metoprolol Tartrate 50 MG Tab PO SCH ×3 (09:15→21:28)
[2017-11-10] MEDS ORDERED: Enoxaparin 40 MG/0.4 ML Syringe SUBCUT SCH (09:15)
[2017-11-10] MEDS: HYDROmorphone 1 MG/ML Syringe IVPUSH PRN (09:16)
[2017-11-10] MEDS: Pantoprazole 40 MG Vial IVPUSH SCH ×2 (13:45→21:27)
[2017-11-10] MEDS: Ondansetron 4 MG/2 ML SDV IVPUSH PRN (14:35)
[2017-11-10] MEDS: oxyCODONE 5 MG Tab PO SCH ×2 (17:33→21:27)
--- NOTE | 2017-11-10 18:17 | PCM48HPAN ---
Post Anesthesia Note - EVALUATION WITHIN 48HRS OF ANESTHETIC Vital Signs in Normal Range: Yes Patient Participated in Evaluation: Yes Respiratory Function Stable: Yes Airway Patent: Yes Cardiovascular Function Stable: Yes Hydration Status Stable: Yes Pain Control Satisfactory: Yes Nausea and Vomiting Control Satisfactory: Yes Mental Status Recovered: Yes
[2017-11-10] MEDS: Enoxaparin 100 MG/1 ML Syringe SUBCUT SCH (20:26)
[2017-11-10] MEDS ORDERED: Warfarin 2 MG Tab PO SCH (21:00)
[2017-11-10] MEDS ORDERED: Warfarin 5 MG Tab PO SCH (21:00)
[2017-11-11] MEDS: Melatonin 3 MG Tab PO PRN (00:36)
[2017-11-11] MEDS: oxyCODONE 5 MG Tab PO SCH ×6 (01:26→21:41)
[2017-11-11] MEDS: Pantoprazole 40 MG Vial IVPUSH SCH ×2 (05:27→21:32)
[2017-11-11] MEDS: Metoprolol Tartrate 50 MG Tab PO SCH ×3 (05:27→21:39)
[2017-11-11] MEDS: Ondansetron 4 MG/2 ML SDV IVPUSH PRN ×2 (07:16→12:30)
[2017-11-11] MEDS: Enoxaparin 100 MG/1 ML Syringe SUBCUT SCH (08:53)
[2017-11-11] MEDS: oxyCODONE ER 20 MG TAB.ER PO SCH ×2 (08:54→21:30)
--- NOTE | 2017-11-11 12:39 | PCM.PN ---
- General Info Date of Service: 11/11/17 Admission Dx/Problem (Free Text): Admission Diagnosis/Problem Admission Diagnosis/Problem GI bleed requiring more than 4 units of blood in 24 hours, ICU, or surgery Subjective Update: Patient doing well. No complaints or concerns. Has not had bm since admission - Review of Systems General: Reports: No Symptoms HEENT: Reports: No Symptoms Pulmonary: Reports: No Symptoms Cardiovascular: Reports: No Symptoms Gastrointestinal: Reports: No Symptoms Genitourinary: Reports: No Symptoms Musculoskeletal: Reports: No Symptoms Skin: Reports: No Symptoms Neurological: Reports: No Symptoms Psychiatric: Reports: No Symptoms - Patient Data Vitals - Most Recent: Last Vital Signs Temp 36.4 C 11/11/17 08:00 Pulse 93 11/11/17 05:27 Resp 16 11/11/17 08:00 BP 135/55 L 11/11/17 08:00 Pulse Ox 95 11/11/17 08:00 Weight - Most Recent: 68.22 kg I&O - Last 24 Hours: Intake & Output 11/10/17 11/11/17 11/11/17 22:59 06:59 14:59 Intake Total 1200 300 Output Total 500 Balance 1200 -200 Lab Results Last 24 Hours: Laboratory Results - last 24 hr 11/10/17 11/11/17 11/11/17 Range/Units 15:26 05:30 05:30 WBC 10.18 6.92 (4.0-11.0) K/uL RBC 4.02 L 3.48 L (4.30-5.90) M/uL Hgb 10.4 L 8.9 L (12.0-16.0) g/dL Hct 33.4 L 29.3 L (36.0-46.0) % MCV 83.1 84.2 (80.0-98.0) fL MCH 25.9 L 25.6 L (27.0-32.0) pg MCHC 31.1 30.4 L (31.0-37.0) g/dL RDW Std Deviation 55.8 56.7 (28.0-62.0) fl RDW Coeff of Shaun 19 H 19 H (11.0-15.0) % Plt Count 395 343 (150-400) K/uL MPV 9.00 9.40 (7.40-12.00) fL Neut % (Auto) 69.6 48.6 (48.0-80.0) % Lymph % (Auto) 18.7 36.7 (16.0-40.0) % [place] % (Auto) 8.6 10.4 (0.0-15.0) % Eos % (Auto) 2.8 4.0 (0.0-7.0) % Baso % (Auto) 0.3 0.3 (0.0-1.5) % Neut # (Auto) 7.1 H 3.4 (1.4-5.7) K/uL Lymph # (Auto) 1.9 2.5 H (0.6-2.4) K/uL [place]corn # (Auto) 0.9 H 0.7 (0.0-0.8) K/uL Eos # (Auto) 0.3 0.3 (0.0-0.7) K/uL Baso # (Auto) 0.0 0.0 (0.0-0.1) K/uL Nucleated RBC % 0.2 0.0 /100WBC Nucleated RBCs # 0 0 K/uL INR (0.86-1.11) Sodium 139 (136-146) mmol/L Potassium 3.9 (3.5-5.1) mmol/L Chloride 105 (98-110) mmol/L Carbon Dioxide 27 (21-31) mmol/L BUN 17 (6.0-23.0) mg/dL Creatinine 1.1 (0.6-1.5) mg/dL Est Cr Clr Drug Dosing 35.65 mL/min Estimated GFR (MDRD) 49.5 ml/min Glucose 100 (60-110) mg/dL Calcium 8.7 L (8.8-10.8) mg/dL Total Bilirubin 0.7 (0.1-1.5) mg/dL AST 23 (5-40) IU/L ALT 12 (8-54) IU/L Alkaline Phosphatase 77 (40-150) Total Protein 6.0 (6.0-8.0) g/dL Albumin 3.3 L (3.4-4.8) g/dL Globulin 2.7 (2.0-3.5) g/dL Albumin/Globulin Ratio 1.2 L (1.3-2.8) 11/11/17 11/11/17 Range/Units 05:30 12:04 WBC (4.0-11.0) K/uL RBC (4.30-5.90) M/uL Hgb 9.7 L (12.0-16.0) g/dL Hct 31.7 L (36.0-46.0) % MCV (80.0-98.0) fL MCH (27.0-32.0) pg MCHC (31.0-37.0) g/dL RDW Std Deviation (28.0-62.0) fl RDW Coeff of Shaun (11.0-15.0) % Plt Count (150-400) K/uL MPV (7.40-12.00) fL Neut % (Auto) (48.0-80.0) % Lymph % (Auto) (16.0-40.0) % [place]corn % (Auto) (0.0-15.0) % Eos % (Auto) (0.0-7.0) % Baso % (Auto) (0.0-1.5) % Neut # (Auto) (1.4-5.7) K/uL Lymph # (Auto) (0.6-2.4) K/uL [place]corn # (Auto) (0.0-0.8) K/uL Eos # (Auto) (0.0-0.7) K/uL Baso # (Auto) (0.0-0.1) K/uL Nucleated RBC % /100WBC Nucleated RBCs # K/uL INR 1.12 H (0.86-1.11) Sodium (136-146) mmol/L Potassium (3.5-5.1) mmol/L Chloride (98-110) mmol/L Carbon Dioxide (21-31) mmol/L BUN (6.0-23.0) mg/dL Creatinine (0.6-1.5) mg/dL Est Cr Clr Drug Dosing mL/min Estimated GFR (MDRD) ml/min Glucose (60-110) mg/dL Calcium (8.8-10.8) mg/dL Total Bilirubin (0.1-1.5) mg/dL AST (5-40) IU/L ALT (8-54) IU/L Alkaline Phosphatase (40-150) Total Protein (6.0-8.0) g/dL Albumin (3.4-4.8) g/dL Globulin (2.0-3.5) g/dL Albumin/Globulin Ratio (1.3-2.8) Med Orders - Current: Current Medications Enoxaparin Sodium (Lovenox) 65 mg SUBCUT BID [facility] Last Admin: 11/11/17 08:53 Dose: 65 mg Guaifenesin/Dextromethorphan (Robitussin Dm) 10 ml PO Q4H PRN PRN Reason: Cough Last Admin: 11/09/17 01:09 Dose: 10 ml Hydromorphone HCl (Dilaudid) 1 mg IVPUSH Q3H PRN PRN Reason: Pain Last Admin: 11/10/17 09:16 Dose: 1 mg Melatonin (Melatonin) 9 mg PO BEDTIME PRN PRN Reason: Insomnia Last Admin: 11/11/17 00:36 Dose: 9 mg Metoprolol Tartrate (Lopressor) 50 mg PO TID [facility] Last Admin: 11/11/17 05:27 Dose: 50 mg Ondansetron HCl (Zofran) 4 mg IVPUSH Q4H PRN PRN Reason: Nausea Last Admin: 11/11/17 07:16 Dose: 4 mg Oxycodone HCl (Oxycontin) 20 mg PO Q12HR [facility] Last Admin: 11/11/17 08:54 Dose: 20 mg Oxycodone HCl (Oxycodone) 10 mg PO Q4H [facility] Last Admin: 11/11/17 08:54 Dose: 10 mg Pantoprazole Sodium (Protonix Iv) 40 mg IVPUSH TID [facility] Last Admin: 11/11/17 05:27 Dose: 40 mg Warfarin Sodium (Coumadin) 5 mg PO BEDTIME [facility] Last Admin: 11/10/17 20:28 Dose: 5 mg Discontinued Medications Enoxaparin Sodium (Lovenox) 40 mg SUBCUT Q24H [facility] Last Admin: 11/10/17 09:16 Dose: 40 mg Furosemide (Lasix) 80 mg PO ONETIME ONE Stop: 11/09/17 00:31 Last Admin: 11/09/17 00:40 Dose: 80 mg Pantoprazole Sodium 80 mg/ (Sodium Chloride) 100 mls @ 10 mls/hr IV .Continuous [facility] Pantoprazole Sodium 80 mg/ (Sodium Chloride) 100 mls @ 10 mls/hr IV Q10H [facility] Stop: 11/10/17 13:59 Last Admin: 11/10/17 05:08 Dose: 10 mls/hr Sodium Chloride (Normal Saline) 1,000 mls @ 50 mls/hr IV ASDIRECTED [facility] Stop: 11/08/17 15:01 Last Infusion: 11/08/17 13:45 Dose: 0 mls/hr Sodium Chloride (Normal Saline) 500 mls @ 999 mls/hr IV STAT [facility] Last Admin: 11/08/17 12:09 Dose: 999 mls/hr Pantoprazole Sodium 80 mg/ (Sodium Chloride) 50 mls @ 5 mls/hr IV Q10H [facility] Pantoprazole Sodium 80 mg/ (Sodium Chloride) 50 mls @ 5 mls/hr IV Q10H [facility] Lorazepam (Ativan) 1 mg IVPUSH ONETIME ONE Stop: 11/08/17 11:52 Last Admin: 11/08/17 12:02 Dose: 1 mg Lorazepam (Ativan) Confirm Administered Dose 2 mg .ROUTE .STK-MED ONE Stop: 11/08/17 11:53 Last Admin: 11/08/17 12:13 Dose: Not Given Midazolam HCl (Versed 1 Mg/Ml) Confirm Administered Dose 2 mg .ROUTE .STK-MED ONE Stop: 11/09/17 13:53 Morphine Sulfate (Morphine) 2 mg IVPUSH Q4H PRN PRN Reason: Pain (severe 7-10) Stop: 11/09/17 17:18 Last Admin: 11/09/17 09:56 Dose: 2 mg Oxycodone HCl (Oxycodone) 10 mg PO ONETIME ONE Stop: 11/08/17 14:39 Last Admin: 11/08/17 15:04 Dose: 10 mg Oxycodone HCl (Oxycodone) 10 mg PO Q6HR PRN PRN Reason: Pain Oxycodone HCl (Oxycodone) 10 mg PO Q4H PRN PRN Reason: Pain Last Admin: 11/10/17 13:46 Dose: 10 mg Pantoprazole Sodium (Protonix Iv) 80 mg IVPUSH .BOLUS ONE Stop: 11/08/17 11:45 Last Admin: 11/08/17 12:03 Dose: 80 mg Phytonadione (Mephyton) 5 mg PO ONETIME ONE Stop: 11/08/17 11:58 Last Admin: 11/08/17 14:22 Dose: Not Given Phytonadione (Aquamephyton) 5 mg PO ONETIME ONE Stop: 11/08/17 12:16 Last Admin: 11/08/17 15:17 Dose: Not Given Phytonadione (Aquamephyton) 5 mg PO ONETIME ONE Stop: 11/08/17 14:16 Last Admin: 11/08/17 14:21 Dose: 5 mg Propofol (Diprivan 20 Ml) Confirm Administered Dose 200 mg .ROUTE .STK-MED ONE Stop: 11/09/17 13:24 Tramadol HCl (Ultram) 50 mg PO ONETIME ONE Stop: 11/09/17 06:00 Last Admin: 11/09/17 06:22 Dose: 50 mg Warfarin Sodium (Coumadin) 6 mg PO BEDTIME [facility] - Exam General: Alert, Oriented, No Acute Distress HEENT: Pupils Equal, Pupils Reactive Neck: Supple, No JVD Lungs: Clear to Auscultation, Normal Respiratory Effort Cardiovascular: Tachycardia GI/Abdominal Exam: Normal Bowel Sounds, Soft, Non-Tender, No Distention Extremities: Normal Inspection, Normal Capillary Refill Skin: Warm, Dry, Intact Neurological: No New Focal Deficit Psy/Mental Status: Alert, Normal Affect, Normal Mood - Problem List Review Problem List Initiated/Reviewed/Updated: Yes - My Orders Last 24 Hours: My Active Orders 11/10/17 14:00 Pantoprazole [ProTONIX IV] 40 mg IVPUSH TID 11/10/17 17:30 oxyCODONE 10 mg PO Q4H 11/10/17 21:00 Enoxaparin [Lovenox] 65 mg SUBCUT BID Warfarin [Coumadin] 5 mg PO BEDTIME 11/11/17 18:00 HEMOGLOBIN/HEMATOCRIT,HH [HEME] Q6H 11/11/17 Breakfast Heart Healthy Diet [DIET] 11/12/17 00:00 HEMOGLOBIN/HEMATOCRIT,HH [HEME] Q6H 11/12/17 05:11 CBC WITH AUTO DIFF [HEME] AM COMPREHENSIVE METABOLIC PN,CMP [CHEM] AM INR,PT,PROTHROMBIN TIME [COAG] AM 11/12/17 06:00 HEMOGLOBIN/HEMATOCRIT,HH [HEME] Q6H 11/12/17 12:00 HEMOGLOBIN/HEMATOCRIT,HH [HEME] Q6H 11/12/17 18:00 HEMOGLOBIN/HEMATOCRIT,HH [HEME] Q6H 11/13/17 05:11 CBC WITH AUTO DIFF [HEME] AM COMPREHENSIVE METABOLIC PN,CMP [CHEM] AM INR,PT,PROTHROMBIN TIME [COAG] AM 11/14/17 05:11 CBC WITH AUTO DIFF [HEME] AM COMPREHENSIVE METABOLIC PN,CMP [CHEM] AM INR,PT,PROTHROMBIN TIME [COAG] AM 11/15/17 05:11 CBC WITH AUTO DIFF [HEME] AM COMPREHENSIVE METABOLIC PN,CMP [CHEM] AM INR,PT,PROTHROMBIN TIME [COAG] AM - Plan Plan:: 67 yo female admitted for melena & acute blood loss anemia presumed to be from GI bleed. INR was supratherapeutic at admission for which she was given vitamin k and FFP #GI Bleed -Hb stabilized after 4 units pRBC however decreased from 10.4 to 8.9 overnight, INR was 1.1 today -PICC line was placed due to poor access -General surgery consulted for EGD, performed 11/09/17, no source of bleed found -initially was on Protonix drip but was switched to Protonix IV after hb stabilized -E-ICU rec's capsule endoscopy plan: -npo -serial Hb checks - if Hb continues to decline then will restart Protonix drip and consider transfer to facility for GI consult -hold anticoagulation -stool occult blood #Anemia, secondary to above -plan as per above #History of Gastric Bypass -patient initially informed us it was done in [place] and had revision last year in [place]. Daughter present today who informs us that patient is incorrect. Surgery was done in [place] 10 years ago and there was never any revision plan: -due to bypass, patient will need to be transferred for GI consult if hb continues to decline #Subtherapeutic INR -Supratherapeutic at admission with INR 12.5, given Vitamin K & FFP -INR today 1.1 -started on Coumadin and Lovenox yesterday as per rec's of E-ICU plan -hold Coumadin and Lovenox -monitor CBC & INR #AF, rate controlled -restarted home Metoprolol -holding anticoagulation until GI bleed r/o -consult cardiology #Chronic Pain -resume home medications -Monoid PRN for uncontrolled pain #Anxiety, improved -likely secondary to heart palpitations and RVR
[2017-11-11] MEDS: Warfarin 5 MG Tab PO SCH (21:29)
[2017-11-11] MEDS: Enoxaparin 40 MG/0.4 ML Syringe SUBCUT SCH ×2 (21:29→21:49)
[2017-11-11] MEDS: DULoxetine 60 MG Cap PO SCH (21:30)
[2017-11-12] MEDS: oxyCODONE 5 MG Tab PO SCH ×6 (00:38→21:09)
[2017-11-12] MEDS: Metoprolol Tartrate 50 MG Tab PO SCH ×3 (05:00→21:09)
[2017-11-12] MEDS: Enoxaparin 100 MG/1 ML Syringe SUBCUT SCH ×2 (09:03→21:08)
[2017-11-12] MEDS: Polyethylene Glycol 3350 Powder 17 GM Packet PO SCH (09:05)
[2017-11-12] MEDS: Pantoprazole 40 MG Vial IVPUSH SCH ×2 (09:07→21:08)
[2017-11-12] MEDS: oxyCODONE ER 20 MG TAB.ER PO SCH ×2 (09:07→21:09)
[2017-11-12] MEDS: Enoxaparin 40 MG/0.4 ML Syringe SUBCUT SCH (09:13)
--- NOTE | 2017-11-12 11:18 | PCM.PN ---
- General Info Date of Service: 11/12/17 Admission Dx/Problem (Free Text): Admission Diagnosis/Problem Admission Diagnosis/Problem GI bleed requiring more than 4 units of blood in 24 hours, ICU, or surgery Subjective Update: Patient doing well. Complains of rib pain that is chronic. She has not had a bm yet. She is having some nausea but is tolerating clear liquid diet Functional Status: Reports: Pain Controlled, Ambulating, Urinating - Review of Systems General: Reports: No Symptoms HEENT: Reports: No Symptoms Pulmonary: Reports: No Symptoms Cardiovascular: Reports: No Symptoms Gastrointestinal: Reports: No Symptoms Genitourinary: Reports: No Symptoms Musculoskeletal: Reports: No Symptoms Skin: Reports: No Symptoms Neurological: Reports: No Symptoms Psychiatric: Reports: No Symptoms - Patient Data Vitals - Most Recent: Last Vital Signs Temp 36.7 C 11/12/17 04:00 Pulse 82 11/12/17 05:00 Resp 19 11/12/17 04:00 BP 135/67 11/12/17 05:00 Pulse Ox 95 11/12/17 04:00 Weight - Most Recent: 68.2 kg I&O - Last 24 Hours: Intake & Output 11/11/17 11/12/17 11/12/17 22:59 06:59 14:59 Intake Total 250 250 Output Total 450 Balance 250 -200 Lab Results Last 24 Hours: Laboratory Results - last 24 hr 11/11/17 11/11/17 11/12/17 Range/Units 12:04 18:04 06:48 WBC 9.75 (4.0-11.0) K/uL RBC 3.31 L (4.30-5.90) M/uL Hgb 9.7 L 9.6 L 8.6 L (12.0-16.0) g/dL Hct 31.7 L 31.7 L 28.4 L (36.0-46.0) % MCV 85.8 (80.0-98.0) fL MCH 26.0 L (27.0-32.0) pg MCHC 30.3 L (31.0-37.0) g/dL RDW Std Deviation 58.1 (28.0-62.0) fl RDW Coeff of Shaun 19 H (11.0-15.0) % Plt Count 339 (150-400) K/uL MPV 9.40 (7.40-12.00) fL Neut % (Auto) 69.1 (48.0-80.0) % Lymph % (Auto) 19.6 (16.0-40.0) % [place] % (Auto) 8.2 (0.0-15.0) % Eos % (Auto) 2.8 (0.0-7.0) % Baso % (Auto) 0.3 (0.0-1.5) % Neut # (Auto) 6.7 H (1.4-5.7) K/uL Lymph # (Auto) 1.9 (0.6-2.4) K/uL [place] # (Auto) 0.8 (0.0-0.8) K/uL Eos # (Auto) 0.3 (0.0-0.7) K/uL Baso # (Auto) 0.0 (0.0-0.1) K/uL Nucleated RBC % 0.0 /100WBC Nucleated RBCs # 0 K/uL INR (0.86-1.11) Sodium (136-146) mmol/L Potassium (3.5-5.1) mmol/L Chloride (98-110) mmol/L Carbon Dioxide (21-31) mmol/L BUN (6.0-23.0) mg/dL Creatinine (0.6-1.5) mg/dL Est Cr Clr Drug Dosing mL/min Estimated GFR (MDRD) ml/min Glucose (60-110) mg/dL Calcium (8.8-10.8) mg/dL Total Bilirubin (0.1-1.5) mg/dL AST (5-40) IU/L ALT (8-54) IU/L Alkaline Phosphatase (40-150) Total Protein (6.0-8.0) g/dL Albumin (3.4-4.8) g/dL Globulin (2.0-3.5) g/dL Albumin/Globulin Ratio (1.3-2.8) 11/12/17 11/12/17 Range/Units 06:48 06:48 WBC (4.0-11.0) K/uL RBC (4.30-5.90) M/uL Hgb (12.0-16.0) g/dL Hct (36.0-46.0) % MCV (80.0-98.0) fL MCH (27.0-32.0) pg MCHC (31.0-37.0) g/dL RDW Std Deviation (28.0-62.0) fl RDW Coeff of Shaun (11.0-15.0) % Plt Count (150-400) K/uL MPV (7.40-12.00) fL Neut % (Auto) (48.0-80.0) % Lymph % (Auto) (16.0-40.0) % [place] % (Auto) (0.0-15.0) % Eos % (Auto) (0.0-7.0) % Baso % (Auto) (0.0-1.5) % Neut # (Auto) (1.4-5.7) K/uL Lymph # (Auto) (0.6-2.4) K/uL [place] # (Auto) (0.0-0.8) K/uL Eos # (Auto) (0.0-0.7) K/uL Baso # (Auto) (0.0-0.1) K/uL Nucleated RBC % /100WBC Nucleated RBCs # K/uL INR 1.19 H (0.86-1.11) Sodium 138 (136-146) mmol/L Potassium 4.2 (3.5-5.1) mmol/L Chloride 106 (98-110) mmol/L Carbon Dioxide 25 (21-31) mmol/L BUN 14 (6.0-23.0) mg/dL Creatinine 1.0 (0.6-1.5) mg/dL Est Cr Clr Drug Dosing 39.21 mL/min Estimated GFR (MDRD) 55.3 ml/min Glucose 101 (60-110) mg/dL Calcium 8.5 L (8.8-10.8) mg/dL Total Bilirubin 0.5 (0.1-1.5) mg/dL AST 16 (5-40) IU/L ALT 12 (8-54) IU/L Alkaline Phosphatase 73 (40-150) Total Protein 5.9 L (6.0-8.0) g/dL Albumin 3.4 (3.4-4.8) g/dL Globulin 2.5 (2.0-3.5) g/dL Albumin/Globulin Ratio 1.4 (1.3-2.8) Med Orders - Current: Current Medications Duloxetine HCl (Cymbalta) 60 mg PO BEDTIME [facility] Last Admin: 11/11/17 21:30 Dose: 60 mg Enoxaparin Sodium (Lovenox) 65 mg SUBCUT BID [facility] Last Admin: 11/12/17 09:03 Dose: 65 mg Guaifenesin/Dextromethorphan (Robitussin Dm) 10 ml PO Q4H PRN PRN Reason: Cough Last Admin: 11/09/17 01:09 Dose: 10 ml Hydromorphone HCl (Dilaudid) 1 mg IVPUSH Q3H PRN PRN Reason: Pain Last Admin: 11/10/17 09:16 Dose: 1 mg Melatonin (Melatonin) 9 mg PO BEDTIME PRN PRN Reason: Insomnia Last Admin: 11/11/17 00:36 Dose: 9 mg Metoprolol Tartrate (Lopressor) 50 mg PO TID [facility] Last Admin: 11/12/17 05:00 Dose: 50 mg Ondansetron HCl (Zofran) 4 mg IVPUSH Q4H PRN PRN Reason: Nausea Last Admin: 11/11/17 12:30 Dose: 4 mg Oxycodone HCl (Oxycontin) 20 mg PO Q12HR [facility] Last Admin: 11/12/17 09:07 Dose: 20 mg Oxycodone HCl (Oxycodone) 10 mg PO Q4H [facility] Last Admin: 11/12/17 09:05 Dose: 10 mg Pantoprazole Sodium (Protonix Iv) 40 mg IVPUSH BID [facility] Last Admin: 11/12/17 09:07 Dose: 40 mg Polyethylene Glycol (Miralax) 17 gm PO DAILY [facility] Last Admin: 11/12/17 09:05 Dose: 17 gm Warfarin Sodium (Coumadin) 5 mg PO BEDTIME [facility] Last Admin: 11/11/17 21:29 Dose: Not Given Discontinued Medications Enoxaparin Sodium (Lovenox) 40 mg SUBCUT Q24H [facility] Last Admin: 11/10/17 09:16 Dose: 40 mg Enoxaparin Sodium (Lovenox) 65 mg SUBCUT BID [facility] Last Admin: 11/11/17 08:53 Dose: 65 mg Enoxaparin Sodium (Lovenox) 65 mg SUBCUT BID [facility] Last Admin: 11/12/17 09:13 Dose: Not Given Furosemide (Lasix) 80 mg PO ONETIME ONE Stop: 11/09/17 00:31 Last Admin: 11/09/17 00:40 Dose: 80 mg Pantoprazole Sodium 80 mg/ (Sodium Chloride) 100 mls @ 10 mls/hr IV .Continuous [facility] Pantoprazole Sodium 80 mg/ (Sodium Chloride) 100 mls @ 10 mls/hr IV Q10H [facility] Stop: 11/10/17 13:59 Last Admin: 11/10/17 05:08 Dose: 10 mls/hr Sodium Chloride (Normal Saline) 1,000 mls @ 50 mls/hr IV ASDIRECTED [facility] Stop: 11/08/17 15:01 Last Infusion: 11/08/17 13:45 Dose: 0 mls/hr Sodium Chloride (Normal Saline) 500 mls @ 999 mls/hr IV STAT [facility] Last Admin: 11/08/17 12:09 Dose: 999 mls/hr Pantoprazole Sodium 80 mg/ (Sodium Chloride) 50 mls @ 5 mls/hr IV Q10H [facility] Pantoprazole Sodium 80 mg/ (Sodium Chloride) 50 mls @ 5 mls/hr IV Q10H [facility] Lorazepam (Ativan) 1 mg IVPUSH ONETIME ONE Stop: 11/08/17 11:52 Last Admin: 11/08/17 12:02 Dose: 1 mg Lorazepam (Ativan) Confirm Administered Dose 2 mg .ROUTE .STK-MED ONE Stop: 11/08/17 11:53 Last Admin: 11/08/17 12:13 Dose: Not Given Midazolam HCl (Versed 1 Mg/Ml) Confirm Administered Dose 2 mg .ROUTE .STK-MED ONE Stop: 11/09/17 13:53 Morphine Sulfate (Morphine) 2 mg IVPUSH Q4H PRN PRN Reason: Pain (severe 7-10) Stop: 11/09/17 17:18 Last Admin: 11/09/17 09:56 Dose: 2 mg Oxycodone HCl (Oxycodone) 10 mg PO ONETIME ONE Stop: 11/08/17 14:39 Last Admin: 11/08/17 15:04 Dose: 10 mg Oxycodone HCl (Oxycodone) 10 mg PO Q6HR PRN PRN Reason: Pain Oxycodone HCl (Oxycodone) 10 mg PO Q4H PRN PRN Reason: Pain Last Admin: 11/10/17 13:46 Dose: 10 mg Pantoprazole Sodium (Protonix Iv) 80 mg IVPUSH .BOLUS ONE Stop: 11/08/17 11:45 Last Admin: 11/08/17 12:03 Dose: 80 mg Pantoprazole Sodium (Protonix Iv) 40 mg IVPUSH TID [facility] Last Admin: 11/11/17 05:27 Dose: 40 mg Phytonadione (Mephyton) 5 mg PO ONETIME ONE Stop: 11/08/17 11:58 Last Admin: 11/08/17 14:22 Dose: Not Given Phytonadione (Aquamephyton) 5 mg PO ONETIME ONE Stop: 11/08/17 12:16 Last Admin: 11/08/17 15:17 Dose: Not Given Phytonadione (Aquamephyton) 5 mg PO ONETIME ONE Stop: 11/08/17 14:16 Last Admin: 11/08/17 14:21 Dose: 5 mg Propofol (Diprivan 20 Ml) Confirm Administered Dose 200 mg .ROUTE .STK-MED ONE Stop: 11/09/17 13:24 Tramadol HCl (Ultram) 50 mg PO ONETIME ONE Stop: 11/09/17 06:00 Last Admin: 11/09/17 06:22 Dose: 50 mg Warfarin Sodium (Coumadin) 6 mg PO BEDTIME [facility] Warfarin Sodium (Coumadin) 5 mg PO BEDTIME [facility] Last Admin: 11/10/17 20:28 Dose: 5 mg - Exam General: Alert, Oriented, No Acute Distress HEENT: Pupils Equal, Pupils Reactive, EOMI, Mucous Membr. Moist/[place] Neck: Supple Cardiovascular: Irregular Rhythm GI/Abdominal Exam: Normal Bowel Sounds, Soft, Non-Tender, No Distention, Other Extremities: Normal Inspection, No Pedal Edema, Normal Capillary Refill Peripheral Pulses: 2+: Radial (L), Radial (R) Skin: Warm, Dry, Intact - Problem List Review Problem List Initiated/Reviewed/Updated: Yes - My Orders Last 24 Hours: My Active Orders 11/11/17 12:42 OCCULT BLOOD SCREEN [OP] Routine 11/11/17 21:00 DULoxetine [Cymbalta] 60 mg PO BEDTIME Pantoprazole [ProTONIX IV] 40 mg IVPUSH BID Warfarin [Coumadin] 5 mg PO BEDTIME 11/11/17 Dinner Clear Liquid Diet [DIET] 11/12/17 09:00 Enoxaparin [Lovenox] 65 mg SUBCUT BID Polyethylene Glycol 3350 [MiraLAX] 17 gm PO DAILY 11/12/17 10:22 HEMOGLOBIN/HEMATOCRIT,HH [HEME] Q4H 11/12/17 11:16 IRON,FE [CHEM] Routine 11/12/17 14:00 HEMOGLOBIN/HEMATOCRIT,HH [HEME] Q4H 11/12/17 18:00 HEMOGLOBIN/HEMATOCRIT,HH [HEME] Q4H 11/12/17 22:00 HEMOGLOBIN/HEMATOCRIT,HH [HEME] Q4H 11/13/17 05:11 CBC WITH AUTO DIFF [HEME] AM COMPREHENSIVE METABOLIC PN,CMP [CHEM] AM INR,PT,PROTHROMBIN TIME [COAG] AM 11/14/17 05:11 CBC WITH AUTO DIFF [HEME] AM COMPREHENSIVE METABOLIC PN,CMP [CHEM] AM INR,PT,PROTHROMBIN TIME [COAG] AM 11/15/17 05:11 CBC WITH AUTO DIFF [HEME] AM COMPREHENSIVE METABOLIC PN,CMP [CHEM] AM INR,PT,PROTHROMBIN TIME [COAG] AM - Plan Plan:: 67 yo female admitted for melena & acute blood loss anemia presumed to be from GI bleed. INR was supratherapeutic at admission for which she was given vitamin k and FFP #GI Bleed -Hb fluctuating -PICC line was placed due to poor access -General surgery consulted for EGD, performed 11/09/17, no source of bleed found -initially was on Protonix drip but was switched to Protonix IV after hb stabilized -E-ICU rec's capsule endoscopy plan: -continue Lovenox and Coumadin as patient will need to be discharged on it due to her high risk for clotting -obtain serial Hb [id number] to monitor patients Hb while on anticoagulation -if hb remains stable then patient may be discharged tomorrow and f/u with her PCP Dr. Jones in 1 week to monitor Hb and INR -patient will need out-patient referral to GI #Anemia, secondary to above -plan as per above #History of Gastric Bypass -patient initially informed us it was done in [place] and had revision last year in [place]. Daughter present today who informs us that patient is incorrect. Surgery was done in [place] 10 years ago and there was never any revision plan: -due to bypass, patient will need to be transferred for GI consult if hb continues to decline #Subtherapeutic INR -Supratherapeutic at admission with INR 12.5, given Vitamin K & FFP -started on Coumadin and Lovenox as per rec's of E-ICU -due to patients history of mechanical heart valve and AF she is high risk for clotting plan -continue Lovenox 1 mg/kg BID -resume Coumadin at 5 mg QD -patient checks PT/INR at home and is comfortable being discharged on lovenox until INR is therapeutic #AF, rate controlled -restarted home Metoprolol -holding anticoagulation until GI bleed r/o -consulted Cardiology #Chronic Pain -resume home medications -Dilaudid PRN for uncontrolled pain #Anxiety, improved -likely secondary to heart palpitations and RVR
[2017-11-12] MEDS: HYDROmorphone 1 MG/ML Syringe IVPUSH PRN (15:27)
[2017-11-12] MEDS: Ondansetron 4 MG/2 ML SDV IVPUSH PRN (16:56)
[2017-11-12] MEDS: DULoxetine 60 MG Cap PO SCH (21:09)
[2017-11-12] MEDS: Warfarin 5 MG Tab PO SCH (21:10)
[2017-11-13] MEDS: oxyCODONE 5 MG Tab PO SCH ×6 (00:54→21:27)
[2017-11-13] MEDS: HYDROmorphone 1 MG/ML Syringe IVPUSH PRN ×3 (01:34→22:41)
[2017-11-13 05:36] LABS: CHLORIDE,CL 106 mmol/L (98-110); SODIUM,NA 139 mmol/L (136-146)
[2017-11-13] MEDS: Metoprolol Tartrate 50 MG Tab PO SCH ×3 (06:17→21:27)
--- NOTE | 2017-11-13 08:19 | PCM.PN ---
- General Info Date of Service: 11/13/17 Admission Dx/Problem (Free Text): Admission Diagnosis/Problem Admission Diagnosis/Problem GI bleed requiring more than 4 units of blood in 24 hours, ICU, or surgery Subjective Update: Patient doing well. No nausea or vomiting. Is hungry and has tolerated liquid diet. No chest pain, palpitations, sob, diarrhea. Functional Status: Reports: Pain Controlled, Tolerating Diet - Review of Systems General: Denies: Fever, Weakness, Fatigue HEENT: Denies: Headaches, Visual Changes Pulmonary: Denies: Shortness of Breath, Hemoptysis Cardiovascular: Denies: Chest Pain, Palpitations, Edema Gastrointestinal: Denies: Abdominal Pain, Diarrhea, Nausea, Vomiting Genitourinary: Denies: Dysuria, Hematuria Musculoskeletal: Denies: Neck Pain, Leg Pain Skin: Denies: Cyanosis Neurological: Denies: Confusion, Dizziness Psychiatric: Denies: Confusion - Patient Data Vitals - Most Recent: Last Vital Signs Temp 98.9 F 11/13/17 04:00 Pulse 68 11/13/17 06:17 Resp 20 11/13/17 04:00 BP 140/68 11/13/17 06:17 Pulse Ox 98 11/13/17 04:00 Weight - Most Recent: 72.03 kg I&O - Last 24 Hours: Intake & Output 11/12/17 11/13/17 11/13/17 22:59 06:59 14:59 Intake Total 450 250 Output Total 600 1050 Balance -150 -800 Lab Results Last 24 Hours: Laboratory Results - last 24 hr 11/12/17 11/12/17 11/12/17 Range/Units 10:22 11:32 14:11 WBC (4.0-11.0) K/uL RBC (4.30-5.90) M/uL Hgb 9.0 L 8.2 L (12.0-16.0) g/dL Hct 29.8 L 27.4 L (36.0-46.0) % MCV (80.0-98.0) fL MCH (27.0-32.0) pg MCHC (31.0-37.0) g/dL RDW Std Deviation (28.0-62.0) fl RDW Coeff of Shaun (11.0-15.0) % Plt Count (150-400) K/uL MPV (7.40-12.00) fL Neut % (Auto) (48.0-80.0) % Lymph % (Auto) (16.0-40.0) % [place] % (Auto) (0.0-15.0) % Eos % (Auto) (0.0-7.0) % Baso % (Auto) (0.0-1.5) % Neut # (Auto) (1.4-5.7) K/uL Lymph # (Auto) (0.6-2.4) K/uL [place] # (Auto) (0.0-0.8) K/uL Eos # (Auto) (0.0-0.7) K/uL Baso # (Auto) (0.0-0.1) K/uL Nucleated RBC % /100WBC Nucleated RBCs # K/uL INR (0.86-1.11) Sodium (136-146) mmol/L Potassium (3.5-5.1) mmol/L Chloride (98-110) mmol/L Carbon Dioxide (21-31) mmol/L BUN (6.0-23.0) mg/dL Creatinine (0.6-1.5) mg/dL Est Cr Clr Drug Dosing mL/min Estimated GFR (MDRD) ml/min Glucose (60-110) mg/dL Calcium (8.8-10.8) mg/dL Iron 23 L (50-170) ug/dL Total Bilirubin (0.1-1.5) mg/dL AST (5-40) IU/L ALT (8-54) IU/L Alkaline Phosphatase (40-150) Total Protein (6.0-8.0) g/dL Albumin (3.4-4.8) g/dL Globulin (2.0-3.5) g/dL Albumin/Globulin Ratio (1.3-2.8) 11/12/17 11/12/17 11/13/17 Range/Units 18:28 23:00 05:00 WBC 13.17 H (4.0-11.0) K/uL RBC 3.19 L (4.30-5.90) M/uL Hgb 8.4 L 8.5 L 8.2 L (12.0-16.0) g/dL Hct 27.6 L 28.1 L 27.4 L (36.0-46.0) % MCV 85.9 (80.0-98.0) fL MCH 25.7 L (27.0-32.0) pg MCHC 29.9 L (31.0-37.0) g/dL RDW Std Deviation 59.1 (28.0-62.0) fl RDW Coeff of Shaun 19 H (11.0-15.0) % Plt Count 316 (150-400) K/uL MPV 9.40 (7.40-12.00) fL Neut % (Auto) 79.3 (48.0-80.0) % Lymph % (Auto) 12.8 L (16.0-40.0) % [place] % (Auto) 7.0 (0.0-15.0) % Eos % (Auto) 0.7 (0.0-7.0) % Baso % (Auto) 0.2 (0.0-1.5) % Neut # (Auto) 10.5 H (1.4-5.7) K/uL Lymph # (Auto) 1.7 (0.6-2.4) K/uL [place] # (Auto) 0.9 H (0.0-0.8) K/uL Eos # (Auto) 0.1 (0.0-0.7) K/uL Baso # (Auto) 0.0 (0.0-0.1) K/uL Nucleated RBC % 0.0 /100WBC Nucleated RBCs # 0 K/uL INR (0.86-1.11) Sodium (136-146) mmol/L Potassium (3.5-5.1) mmol/L Chloride (98-110) mmol/L Carbon Dioxide (21-31) mmol/L BUN (6.0-23.0) mg/dL Creatinine (0.6-1.5) mg/dL Est Cr Clr Drug Dosing mL/min Estimated GFR (MDRD) ml/min Glucose (60-110) mg/dL Calcium (8.8-10.8) mg/dL Iron (50-170) ug/dL Total Bilirubin (0.1-1.5) mg/dL AST (5-40) IU/L ALT (8-54) IU/L Alkaline Phosphatase (40-150) Total Protein (6.0-8.0) g/dL Albumin (3.4-4.8) g/dL Globulin (2.0-3.5) g/dL Albumin/Globulin Ratio (1.3-2.8) 11/13/17 11/13/17 Range/Units 05:00 05:00 WBC (4.0-11.0) K/uL RBC (4.30-5.90) M/uL Hgb (12.0-16.0) g/dL Hct (36.0-46.0) % MCV (80.0-98.0) fL MCH (27.0-32.0) pg MCHC (31.0-37.0) g/dL RDW Std Deviation (28.0-62.0) fl RDW Coeff of Shaun (11.0-15.0) % Plt Count (150-400) K/uL MPV (7.40-12.00) fL Neut % (Auto) (48.0-80.0) % Lymph % (Auto) (16.0-40.0) % [place] % (Auto) (0.0-15.0) % Eos % (Auto) (0.0-7.0) % Baso % (Auto) (0.0-1.5) % Neut # (Auto) (1.4-5.7) K/uL Lymph # (Auto) (0.6-2.4) K/uL [place] # (Auto) (0.0-0.8) K/uL Eos # (Auto) (0.0-0.7) K/uL Baso # (Auto) (0.0-0.1) K/uL Nucleated RBC % /100WBC Nucleated RBCs # K/uL INR 1.21 H (0.86-1.11) Sodium 139 (136-146) mmol/L Potassium 4.4 (3.5-5.1) mmol/L Chloride 106 (98-110) mmol/L Carbon Dioxide 26 (21-31) mmol/L BUN 10 (6.0-23.0) mg/dL Creatinine 0.7 (0.6-1.5) mg/dL Est Cr Clr Drug Dosing 56.02 mL/min Estimated GFR (MDRD) > 60.0 ml/min Glucose 102 (60-110) mg/dL Calcium 8.5 L (8.8-10.8) mg/dL Iron (50-170) ug/dL Total Bilirubin 0.6 (0.1-1.5) mg/dL AST 15 (5-40) IU/L ALT 11 (8-54) IU/L Alkaline Phosphatase 82 (40-150) Total Protein 5.7 L (6.0-8.0) g/dL Albumin 3.2 L (3.4-4.8) g/dL Globulin 2.5 (2.0-3.5) g/dL Albumin/Globulin Ratio 1.3 (1.3-2.8) Med Orders - Current: Current Medications Duloxetine HCl (Cymbalta) 60 mg PO BEDTIME [facility] Last Admin: 11/12/17 21:09 Dose: 60 mg Enoxaparin Sodium (Lovenox) 65 mg SUBCUT BID [facility] Last Admin: 11/12/17 21:08 Dose: 65 mg Guaifenesin/Dextromethorphan (Robitussin Dm) 10 ml PO Q4H PRN PRN Reason: Cough Last Admin: 11/09/17 01:09 Dose: 10 ml Hydromorphone HCl (Dilaudid) 1 mg IVPUSH Q3H PRN PRN Reason: Pain Last Admin: 11/13/17 01:34 Dose: 1 mg Melatonin (Melatonin) 9 mg PO BEDTIME PRN PRN Reason: Insomnia Last Admin: 11/11/17 00:36 Dose: 9 mg Metoprolol Tartrate (Lopressor) 50 mg PO TID [facility] Last Admin: 11/13/17 06:17 Dose: 50 mg Ondansetron HCl (Zofran) 4 mg IVPUSH Q4H PRN PRN Reason: Nausea Last Admin: 11/12/17 16:56 Dose: 4 mg Oxycodone HCl (Oxycontin) 20 mg PO Q12HR [facility] Last Admin: 11/12/17 21:09 Dose: 20 mg Oxycodone HCl (Oxycodone) 10 mg PO Q4H [facility] Last Admin: 11/13/17 06:16 Dose: 10 mg Pantoprazole Sodium (Protonix Iv) 40 mg IVPUSH BID [facility] Last Admin: 11/12/17 21:08 Dose: 40 mg Polyethylene Glycol (Miralax) 17 gm PO DAILY [facility] Last Admin: 11/12/17 09:05 Dose: 17 gm Warfarin Sodium (Coumadin) 5 mg PO BEDTIME [facility] Last Admin: 11/12/17 21:10 Dose: 5 mg Discontinued Medications Enoxaparin Sodium (Lovenox) 40 mg SUBCUT Q24H [facility] Last Admin: 11/10/17 09:16 Dose: 40 mg Enoxaparin Sodium (Lovenox) 65 mg SUBCUT BID [facility] Last Admin: 11/11/17 08:53 Dose: 65 mg Enoxaparin Sodium (Lovenox) 65 mg SUBCUT BID [facility] Last Admin: 11/12/17 09:13 Dose: Not Given Furosemide (Lasix) 80 mg PO ONETIME ONE Stop: 11/09/17 00:31 Last Admin: 11/09/17 00:40 Dose: 80 mg Pantoprazole Sodium 80 mg/ (Sodium Chloride) 100 mls @ 10 mls/hr IV .Continuous [facility] Pantoprazole Sodium 80 mg/ (Sodium Chloride) 100 mls @ 10 mls/hr IV Q10H [facility] Stop: 11/10/17 13:59 Last Admin: 11/10/17 05:08 Dose: 10 mls/hr Sodium Chloride (Normal Saline) 1,000 mls @ 50 mls/hr IV ASDIRECTED [facility] Stop: 11/08/17 15:01 Last Infusion: 11/08/17 13:45 Dose: 0 mls/hr Sodium Chloride (Normal Saline) 500 mls @ 999 mls/hr IV STAT [facility] Last Admin: 11/08/17 12:09 Dose: 999 mls/hr Pantoprazole Sodium 80 mg/ (Sodium Chloride) 50 mls @ 5 mls/hr IV Q10H [facility] Pantoprazole Sodium 80 mg/ (Sodium Chloride) 50 mls @ 5 mls/hr IV Q10H [facility] Lorazepam (Ativan) 1 mg IVPUSH ONETIME ONE Stop: 11/08/17 11:52 Last Admin: 11/08/17 12:02 Dose: 1 mg Lorazepam (Ativan) Confirm Administered Dose 2 mg .ROUTE .STK-MED ONE Stop: 11/08/17 11:53 Last Admin: 11/08/17 12:13 Dose: Not Given Midazolam HCl (Versed 1 Mg/Ml) Confirm Administered Dose 2 mg .ROUTE .STK-MED ONE Stop: 11/09/17 13:53 Morphine Sulfate (Morphine) 2 mg IVPUSH Q4H PRN PRN Reason: Pain (severe 7-10) Stop: 11/09/17 17:18 Last Admin: 11/09/17 09:56 Dose: 2 mg Oxycodone HCl (Oxycodone) 10 mg PO ONETIME ONE Stop: 11/08/17 14:39 Last Admin: 11/08/17 15:04 Dose: 10 mg Oxycodone HCl (Oxycodone) 10 mg PO Q6HR PRN PRN Reason: Pain Oxycodone HCl (Oxycodone) 10 mg PO Q4H PRN PRN Reason: Pain Last Admin: 11/10/17 13:46 Dose: 10 mg Pantoprazole Sodium (Protonix Iv) 80 mg IVPUSH .BOLUS ONE Stop: 11/08/17 11:45 Last Admin: 11/08/17 12:03 Dose: 80 mg Pantoprazole Sodium (Protonix Iv) 40 mg IVPUSH TID [facility] Last Admin: 11/11/17 05:27 Dose: 40 mg Phytonadione (Mephyton) 5 mg PO ONETIME ONE Stop: 11/08/17 11:58 Last Admin: 11/08/17 14:22 Dose: Not Given Phytonadione (Aquamephyton) 5 mg PO ONETIME ONE Stop: 11/08/17 12:16 Last Admin: 11/08/17 15:17 Dose: Not Given Phytonadione (Aquamephyton) 5 mg PO ONETIME ONE Stop: 11/08/17 14:16 Last Admin: 11/08/17 14:21 Dose: 5 mg Propofol (Diprivan 20 Ml) Confirm Administered Dose 200 mg .ROUTE .STK-MED ONE Stop: 11/09/17 13:24 Tramadol HCl (Ultram) 50 mg PO ONETIME ONE Stop: 11/09/17 06:00 Last Admin: 11/09/17 06:22 Dose: 50 mg Warfarin Sodium (Coumadin) 6 mg PO BEDTIME [place] Warfarin Sodium (Coumadin) 5 mg PO BEDTIME [facility] Last Admin: 11/10/17 20:28 Dose: 5 mg - Exam Quality Assessment: DVT Prophylaxis General: Alert, Oriented, Cooperative, No Acute Distress HEENT: Pupils Equal, Pupils Reactive, EOMI, Mucous Membr. Moist/[place] Neck: Supple, No JVD Lungs: Clear to Auscultation, Normal Respiratory Effort Cardiovascular: Regular Rate, Regular Rhythm, No Murmurs GI/Abdominal Exam: Normal Bowel Sounds, Soft, Non-Tender, No Organomegaly, No Distention (Female) Exam: Normal Bimanual Exam Back Exam: Normal Inspection Extremities: Normal Inspection, Non-Tender, No Pedal Edema, Normal Capillary Refill Peripheral Pulses: 2+: Radial (L), Radial (R), Posterior Tibial (L), Posterior Tibial (R), Dorsalis Pedis (L), Dorsalis Pedis (R) Skin: Warm, Dry, Intact Neurological: No New Focal Deficit Psy/Mental Status: Alert, Normal Affect, Normal Mood - Problem List Review Problem List Initiated/Reviewed/Updated: Yes - Plan Plan:: 67 yo female admitted 11/08/17 for melena & acute blood loss anemia presumed to be from GI bleed. INR was supratherapeutic at admission for which she was given vitamin k and FFP #GI Bleed -Hb down 8.2 from 8.5 yesterday -PICC line was placed due to poor access -General surgery consulted for EGD, performed 11/09/17, no source of bleed found -initially was on Protonix drip but was switched to Protonix IV after hb stabilized -E-ICU rec's capsule endoscopy plan: -continue Lovenox and Coumadin as patient will need to be discharged on it due to her high risk for clotting -monitor hgb now that she is on Lovenox and coumading and discharge tomorrow PCP Dr. Jones -patient will need out-patient referral to GI #Anemia, secondary to above -plan as per above #History of Gastric Bypass -patient initially informed us it was done in [place] and had revision last year in [place]. Daughter present today who informs us that patient is incorrect. Surgery was done in [place] 10 years ago and there was never any revision plan: -due to bypass, patient will need to be transferred for GI consult if hb continues to decline #Subtherapeutic INR -Supratherapeutic at admission with INR 12.5, given Vitamin K & FFP -started on Coumadin and Lovenox as per rec's of E-ICU -due to patients history of mechanical heart valve and AF she is high risk for clotting plan -continue Lovenox 1 mg/kg BID -resume Coumadin at 5 mg QD -patient checks PT/INR at home and is comfortable being discharged on lovenox until INR is therapeutic #AF, rate controlled -restarted home Metoprolol -holding anticoagulation until GI bleed r/o -consulted Cardiology #Chronic Pain -resume home medications -Dilaudid PRN for uncontrolled pain #Anxiety, improved -likely secondary to heart palpitations and RVR
[2017-11-13] MEDS: oxyCODONE ER 20 MG TAB.ER PO SCH ×2 (08:56→21:26)
[2017-11-13] MEDS: Enoxaparin 100 MG/1 ML Syringe SUBCUT SCH ×2 (08:57→21:25)
[2017-11-13] MEDS: Polyethylene Glycol 3350 Powder 17 GM Packet PO SCH (08:57)
[2017-11-13] MEDS: Pantoprazole 40 MG Vial IVPUSH SCH ×2 (09:11→21:26)
[2017-11-13] MEDS: Ondansetron 4 MG/2 ML SDV IVPUSH PRN (12:30)
[2017-11-13] MEDS: guaiFENesin/Dextromethorphan 100-10 MG/5 ML Soln 10 ML Cup PO PRN (20:05)
[2017-11-13] MEDS: DULoxetine 60 MG Cap PO SCH (21:27)
[2017-11-13] MEDS: Warfarin 5 MG Tab PO SCH (21:27)
[2017-11-14] MEDS: oxyCODONE 5 MG Tab PO SCH ×3 (01:07→12:30)
[2017-11-14] MEDS: HYDROmorphone 1 MG/ML Syringe IVPUSH PRN (03:51)
[2017-11-14] MEDS: Metoprolol Tartrate 50 MG Tab PO SCH (05:40)
[2017-11-14 06:37] LABS: CHLORIDE,CL 108 mmol/L (98-110); SODIUM,NA 140 mmol/L (136-146)
[2017-11-14] MEDS: guaiFENesin/Dextromethorphan 100-10 MG/5 ML Soln 10 ML Cup PO PRN (08:59)
[2017-11-14] MEDS ORDERED: Enoxaparin 100 MG/1 ML Syringe SUBCUT SCH (09:00)
[2017-11-14] MEDS: oxyCODONE ER 20 MG TAB.ER PO SCH (09:02)
[2017-11-14] MEDS: Polyethylene Glycol 3350 Powder 17 GM Packet PO SCH (09:04)
[2017-11-14] MEDS: Pantoprazole 40 MG Vial IVPUSH SCH (09:05)
--- NOTE | 2017-11-14 11:44 | PCM.DCSUM1 ---
Discharge Summary - Hospital Course HPI Initial Comments: 67 yo female admitted 11/08/17 for melena & acute blood loss anemia presumed to be from GI bleed. INR was supratherapeutic at admission for which she was given vitamin k and FFP. Brief History: 67 year old female with pmh of aortic valve replacement, atrial fibrillation on chronic anticoagulation, hx mitral valve regurgitation, HTN, CHF , and chronic pain presented to ED with complaint of nausea, vomiting, and shortness of breath for past few days. She reported black stools for previous two weeks. She denies any hematemesis. Hgb was noted to be 5.2 and darks stool on rectal exam by ED provider. - Discharge Data Discharge Date: 11/14/17 Discharge Disposition: Home, Self-Care 01 Condition: Good - Patient Summary/Data Operative Procedure(s) Performed: Diagnostic EGD - Patient Instructions Diet: Heart Healthy Diet Activity: Rest and Relax Today Driving: Do Not Drive Showering/Bathing: May Shower Notify Provider of: Fever, Increased Pain, Nausea and/or Vomiting - Discharge Plan Prescriptions/Med Rec: oxyCODONE HCl [Oxycodone HCl] 10 mg PO Q6HR PRN #30 tablet PRN Reason: Pain Sucralfate [Carafate] 1 gm PO Q6H #28 cup Home Medications: Home Meds Warfarin [Coumadin] 6 mg PO BEDTIME 11/28/16 [History] DULoxetine HCl [Duloxetine HCl] 60 mg PO BEDTIME 07/18/17 [History] traMADol [Ultram] 50 mg PO Q8H #90 tablet 07/23/17 [Rx] Lisinopril [Prinivil] 30 mg PO BEDTIME 08/22/17 [History] Polyethylene Glycol 3350 [MiraLAX] 17 gm PO DAILY 08/22/17 [History] Spironolactone [Aldactone] 12.5 mg PO DAILY tablet 08/24/17 [Rx] Pantoprazole [ProTONIX] 40 mg PO DAILY 09/24/17 [History] oxyCODONE ER [OxyCONTIN] 20 mg PO Q12HR 11/08/17 [History] Furosemide [Lasix] 80 mg PO DAILY #0 11/14/17 [Rx] Metoprolol Tartrate [Lopressor] 75 mg PO TID tablet 01/08/18 [Rx] Sucralfate [Carafate] 1 gm PO Q6H #28 cup 11/14/17 [Rx] oxyCODONE HCl [Oxycodone HCl] 10 mg PO Q6HR PRN #30 tablet 11/14/17 [Rx] Patient Handouts: Oxycodone tablets or capsules, Warfarin: What You Need to Know, Gastrointestinal Bleeding, [id number], Sucralfate oral suspension, Capsule Endoscopy Referrals: Khris Dillard MD [Physician] - 11/17/17 2:00 pm Silvino Rob MD [Ordering Only Provider] - 12/03/17 3:00 pm Jose Jones MD [Resident] - 11/18/17 1:00 pm - Discharge Summary/Plan Comment DC Time >30 min.: Yes Discharge Summary/Plan Comment: 67 yo female admitted 11/08/17 for melena & acute blood loss anemia presumed to be from GI bleed. INR was supratherapeutic at admission for which she was given vitamin k and FFP. 67 year old female with pmh of aortic valve replacement, atrial fibrillation on chronic anticoagulation, hx mitral valve regurgitation, HTN, CHF, and chronic pain presented to ED with complaint of nausea, vomiting, and shortness of breath for past few days. She reported black stools for previous two weeks. She denies any hematemesis. Hgb was noted to be 5.2 and darks stool on rectal exam by ED provider. She was admitted for acute blood loss anemia with GI bleed from supratherapeutic INR. Patient was hemodynamically stable on admission and secondary to poor venous access PICC line was placed. She was initially started on Protonix drip, given vitamin K, FFP, and packed red blood cells were ordered. On second day of admission Coumadin was continued to be held and was started on a clear liquid diet. Her INR was monitored closely and surgery was consulted. Dr. Love, surgery, did see the patient and performed an EGD which was normal. She suspected that the GI bleed was most likely from the colon, distal small bowel, or a remnant stomach and BP limb. Recommendations were to undergo an outpatient colonoscopy if she remained stable. It was also recommended, secondary to her multiple comorbidities and history of difficult colonoscopies that the procedure be performed in [place]. Once acute bleed had resolved patient's Coumadin was restarted and she was bridged using Lovenox. Secondary to her gastric bypass and difficult previous colonoscopies it was recommended that she follow-up with GI in [place] for a capsule endoscopy. This was scheduled before discharge as well as a follow-up with her production statistical clerk Dr. Zabala. She also was set up with a follow-up appointment with her primary care physician Dr. Jones. Patient was discharged with instructions to continue Lovenox and warfarin with INR recheck on 11/16/17. They do have Lovenox at home as well as have ability to check INR. Talked with her daughter at length and she is more than comfortable with continuing the Lovenox and Coumadin and then stopping the Lovenox once she has reached her therapeutic range between 2 and 3 and resuming her normal Coumadin dose. Daughter has done this several times when patient has needed surgery. She is also scheduled with a follow-up appointment with the Coumadin clinic on 11/16/17. Patient was discharged in good condition with above follow-up appointments as well as a prescription for Carafate. She was instructed to return to emergency department if she had any return of her original symptoms. - General Info Date of Service: 11/14/17 Admission Dx/Problem (Free Text: Admission Diagnosis/Problem Admission Diagnosis/Problem GI bleed requiring more than 4 units of blood in 24 hours, ICU, or surgery Subjective Update: Doing well. Some dry cough which she has since admission. Is a former long time smoker. Pain controlled. Would like me talk with daughter before discharge. Functional Status: Reports: Pain Controlled, Incentive Spirometry - Review of Systems General: Denies: Fever, Weakness, Fatigue HEENT: Denies: Visual Changes Pulmonary: Denies: No Symptoms, Shortness of Breath, Wheezing Cardiovascular: Denies: Chest Pain, Palpitations, Edema Gastrointestinal: Denies: Abdominal Pain Genitourinary: Denies: Dysuria Musculoskeletal: Denies: Neck Pain, Foot Pain Skin: Denies: Cyanosis Neurological: Denies: Confusion, Dizziness, Headache Psychiatric: Denies: Confusion - Patient Data Vitals - Most Recent: Last Vital Signs Temp 97.8 F 11/14/17 08:00 Pulse 83 11/14/17 09:16 Resp 16 11/14/17 08:00 BP 153/69 H 11/14/17 09:16 Pulse Ox 98 11/14/17 08:00 Weight - Most Recent: 72.03 kg I&O - Last 24 hours: Intake & Output 11/13/17 11/14/17 11/14/17 22:59 06:59 14:59 Intake Total 650 250 Output Total 450 750 Balance 200 -500 Lab Results - Last 24 hrs: Laboratory Results - last 24 hr 11/14/17 11/14/17 11/14/17 Range/Units 05:40 05:40 05:40 WBC 11.73 H (4.0-11.0) K/uL RBC 3.18 L (4.30-5.90) M/uL Hgb 8.1 L (12.0-16.0) g/dL Hct 27.5 L (36.0-46.0) % MCV 86.5 (80.0-98.0) fL MCH 25.5 L (27.0-32.0) pg MCHC 29.5 L (31.0-37.0) g/dL RDW Std Deviation 58.3 (28.0-62.0) fl RDW Coeff of Shaun 18 H (11.0-15.0) % Plt Count 275 (150-400) K/uL MPV 9.50 (7.40-12.00) fL Neut % (Auto) 76.0 (48.0-80.0) % Lymph % (Auto) 12.8 L (16.0-40.0) % Swisher % (Auto) 9.2 (0.0-15.0) % Eos % (Auto) 1.7 (0.0-7.0) % Baso % (Auto) 0.3 (0.0-1.5) % Neut # (Auto) 8.9 H (1.4-5.7) K/uL Lymph # (Auto) 1.5 (0.6-2.4) K/uL Swisher # (Auto) 1.1 H (0.0-0.8) K/uL Eos # (Auto) 0.2 (0.0-0.7) K/uL Baso # (Auto) 0.0 (0.0-0.1) K/uL Nucleated RBC % 0.0 /100WBC Nucleated RBCs # 0 K/uL INR 1.61 H (0.86-1.11) Sodium 140 (136-146) mmol/L Potassium 4.4 (3.5-5.1) mmol/L Chloride 108 (98-110) mmol/L Carbon Dioxide 24 (21-31) mmol/L BUN 9 (6.0-23.0) mg/dL Creatinine 0.7 (0.6-1.5) mg/dL Est Cr Clr Drug Dosing 56.02 mL/min Estimated GFR (MDRD) > 60.0 ml/min Glucose 102 (60-110) mg/dL Calcium 8.5 L (8.8-10.8) mg/dL Total Bilirubin 0.4 (0.1-1.5) mg/dL AST 12 (5-40) IU/L ALT 11 (8-54) IU/L Alkaline Phosphatase 81 (40-150) Total Protein 5.5 L (6.0-8.0) g/dL Albumin 3.1 L (3.4-4.8) g/dL Globulin 2.4 (2.0-3.5) g/dL Albumin/Globulin Ratio 1.3 (1.3-2.8) Med Orders - Current: Current Medications Duloxetine HCl (Cymbalta) 60 mg PO BEDTIME [facility] Last Admin: 11/13/17 21:27 Dose: 60 mg Enoxaparin Sodium (Lovenox) 70 mg SUBCUT BID [facility] Last Admin: 11/14/17 09:01 Dose: 70 mg Guaifenesin/Dextromethorphan (Robitussin Dm) 10 ml PO Q4H PRN PRN Reason: Cough Last Admin: 11/14/17 08:59 Dose: 10 ml Hydromorphone HCl (Dilaudid) 1 mg IVPUSH Q3H PRN PRN Reason: Pain Last Admin: 11/14/17 03:51 Dose: 1 mg Melatonin (Melatonin) 9 mg PO BEDTIME PRN PRN Reason: Insomnia Last Admin: 11/11/17 00:36 Dose: 9 mg Metoprolol Tartrate (Lopressor) 50 mg PO TID [facility] Last Admin: 11/14/17 05:40 Dose: 50 mg Ondansetron HCl (Zofran) 4 mg IVPUSH Q4H PRN PRN Reason: Nausea Last Admin: 01/07/18 12:30 Dose: 4 mg Oxycodone HCl (Oxycontin) 20 mg PO Q12HR [facility] Last Admin: 11/14/17 09:02 Dose: 20 mg Oxycodone HCl (Oxycodone) 10 mg PO Q4H [facility] Last Admin: 11/14/17 09:03 Dose: 10 mg Pantoprazole Sodium (Protonix Iv) 40 mg IVPUSH BID [facility] Last Admin: 11/14/17 09:05 Dose: 40 mg Polyethylene Glycol (Miralax) 17 gm PO DAILY [facility] Last Admin: 11/14/17 09:04 Dose: 17 gm Warfarin Sodium (Coumadin) 5 mg PO BEDTIME [facility] Last Admin: 11/13/17 21:27 Dose: 5 mg Discontinued Medications Enoxaparin Sodium (Lovenox) 40 mg SUBCUT Q24H [facility] Last Admin: 11/10/17 09:16 Dose: 40 mg Enoxaparin Sodium (Lovenox) 65 mg SUBCUT BID [facility] Last Admin: 11/11/17 08:53 Dose: 65 mg Enoxaparin Sodium (Lovenox) 65 mg SUBCUT BID [facility] Last Admin: 11/12/17 09:13 Dose: Not Given Enoxaparin Sodium (Lovenox) 65 mg SUBCUT BID [facility] Last Admin: 11/13/17 21:25 Dose: 65 mg Furosemide (Lasix) 80 mg PO ONETIME ONE Stop: 11/09/17 00:31 Last Admin: 11/09/17 00:40 Dose: 80 mg Pantoprazole Sodium 80 mg/ (Sodium Chloride) 100 mls @ 10 mls/hr IV .Continuous [facility] Pantoprazole Sodium 80 mg/ (Sodium Chloride) 100 mls @ 10 mls/hr IV Q10H [facility] Stop: 11/10/17 13:59 Last Admin: 11/10/17 05:08 Dose: 10 mls/hr Sodium Chloride (Normal Saline) 1,000 mls @ 50 mls/hr IV ASDIRECTED [facility] Stop: 11/08/17 15:01 Last Infusion: 11/08/17 13:45 Dose: 0 mls/hr Sodium Chloride (Normal Saline) 500 mls @ 999 mls/hr IV STAT [facility] Last Admin: 11/08/17 12:09 Dose: 999 mls/hr Pantoprazole Sodium 80 mg/ (Sodium Chloride) 50 mls @ 5 mls/hr IV Q10H [facility] Pantoprazole Sodium 80 mg/ (Sodium Chloride) 50 mls @ 5 mls/hr IV Q10H [facility] Lorazepam (Ativan) 1 mg IVPUSH ONETIME ONE Stop: 11/08/17 11:52 Last Admin: 11/08/17 12:02 Dose: 1 mg Lorazepam (Ativan) Confirm Administered Dose 2 mg .ROUTE .STK-MED ONE Stop: 11/08/17 11:53 Last Admin: 11/08/17 12:13 Dose: Not Given Midazolam HCl (Versed 1 Mg/Ml) Confirm Administered Dose 2 mg .ROUTE .STK-MED ONE Stop: 11/09/17 13:53 Morphine Sulfate (Morphine) 2 mg IVPUSH Q4H PRN PRN Reason: Pain (severe 7-10) Stop: 11/09/17 17:18 Last Admin: 11/09/17 09:56 Dose: 2 mg Oxycodone HCl (Oxycodone) 10 mg PO ONETIME ONE Stop: 11/08/17 14:39 Last Admin: 11/08/17 15:04 Dose: 10 mg Oxycodone HCl (Oxycodone) 10 mg PO Q6HR PRN PRN Reason: Pain Oxycodone HCl (Oxycodone) 10 mg PO Q4H PRN PRN Reason: Pain Last Admin: 11/10/17 13:46 Dose: 10 mg Pantoprazole Sodium (Protonix Iv) 80 mg IVPUSH .BOLUS ONE Stop: 11/08/17 11:45 Last Admin: 11/08/17 12:03 Dose: 80 mg Pantoprazole Sodium (Protonix Iv) 40 mg IVPUSH TID [facility] Last Admin: 11/11/17 05:27 Dose: 40 mg Phytonadione (Mephyton) 5 mg PO ONETIME ONE Stop: 11/08/17 11:58 Last Admin: 11/08/17 14:22 Dose: Not Given Phytonadione (Aquamephyton) 5 mg PO ONETIME ONE Stop: 11/08/17 12:16 Last Admin: 11/08/17 15:17 Dose: Not Given Phytonadione (Aquamephyton) 5 mg PO ONETIME ONE Stop: 11/08/17 14:16 Last Admin: 11/08/17 14:21 Dose: 5 mg Propofol (Diprivan 20 Ml) Confirm Administered Dose 200 mg .ROUTE .STK-MED ONE Stop: 11/09/17 13:24 Tramadol HCl (Ultram) 50 mg PO ONETIME ONE Stop: 11/09/17 06:00 Last Admin: 11/09/17 06:22 Dose: 50 mg Warfarin Sodium (Coumadin) 6 mg PO BEDTIME [facility] Warfarin Sodium (Coumadin) 5 mg PO BEDTIME [facility] Last Admin: 11/10/17 20:28 Dose: 5 mg - Exam Quality Assessment: Reports: DVT Prophylaxis General: Reports: Alert, Oriented, Cooperative, No Acute Distress HEENT: Reports: Pupils Equal, Pupils Reactive, EOMI, Mucous Membr. Moist/[place] Neck: Reports: Supple Lungs: Reports: Clear to Auscultation, Normal Respiratory Effort Cardiovascular: Reports: Regular Rate, Regular Rhythm GI/Abdominal Exam: Normal Bowel Sounds, Soft, Non-Tender, No Organomegaly, No Distention Back Exam: Reports: Normal Inspection Extremities: Normal Inspection, Non-Tender, No Pedal Edema, Normal Capillary Refill Skin: Reports: Warm, Dry, Intact Neurological: Reports: No New Focal Deficit Psy/Mental Status: Reports: Alert, Normal Affect, Normal Mood *Q Meaningful Use (DIS) - VTE *Q VTE Criteria *Q: - Stroke *Q Stroke Criteria *Q: - AMI *Q AMI Criteria *Q:
[2017-11-14 11:54] VITALS: BP 147/60
[2017-11-14] MEDS ORDERED: Furosemide 40 MG/4 ML VIAL IVPUSH ONE ×2 (12:04→12:10)
[2017-11-14] MEDS ORDERED: Spironolactone 25 MG Tab PO SCH (12:15)
[2017-11-14] MEDS ORDERED: Metoprolol Tartrate 25 MG Tab PO SCH (14:00)
--- NOTE | 2017-11-16 14:17 | ECHO ---
EXAM DATE: 11/08/17 PATIENT'S AGE: 67 The echocardiogram report can be seen in this patient's EMR (Electronic Medical Record) in the Reports section. The report has also been scanned into PACs. JEY
== END 2017-11-14 15:20 | disposition home or self-care (01) | DRG 812 ==
LOC: MW.ED 10:47 → MW.ICU 12:07 → MW.MS 11-11 14:14
PROVIDERS: ADMIT Internal Medicine; ATTEND Internal Medicine
PROC: 02HV33Z Insertion of Infusion Device into Superior Vena Cava, Percutaneous Approach (ICD-10-PCS; 2017-11-08)
PROC: 30233N1 Transfusion of Nonautologous Red Blood Cells into Peripheral Vein, Percutaneous Approach (ICD-10-PCS; 2017-11-08)
PROC: 0DJ08ZZ Inspection of Upper Intestinal Tract, Via Natural or Artificial Opening Endoscopic (ICD-10-PCS; principal; 2017-11-09)
DX: D62 Acute posthemorrhagic anemia (principal); T45.515A Adverse effect of anticoagulants, initial encounter; K92.2 Gastrointestinal hemorrhage, unspecified; Y92.019 Unspecified place in single-family (private) house as the place of occurrence of the external cause; R79.1 Abnormal coagulation profile; D68.9 Coagulation defect, unspecified; I48.91 Unspecified atrial fibrillation; I08.3 Combined rheumatic disorders of mitral, aortic and tricuspid valves; I10 Essential (primary) hypertension; I50.9 Heart failure, unspecified; J44.9 Chronic obstructive pulmonary disease, unspecified; K21.9 Gastro-esophageal reflux disease without esophagitis; F41.8 Other specified anxiety disorders; G89.29 Other chronic pain; Z79.01 Long term (current) use of anticoagulants; Z79.899 Other long term (current) drug therapy; Z95.2 Presence of prosthetic heart valve; Z87.891 Personal history of nicotine dependence; Z86.73 Personal history of transient ischemic attack (TIA), and cerebral infarction without residual deficits; Z98.84 Bariatric surgery status
CPT/HCPCS: 36415; 36430; 71045; 80053; 83880; 85025; 85610; 85730; 86850; 86900; 86901; 86920 ×3; 86921 ×3; 86922 ×3; 87804 ×2; 96374; 96375; 99285; C9113; J2060; 00731; 36569; 76937; 76937-26; 77001; 77001-26; 80048; 83540; 85014; 85018; 93005; 93306; 99291; A9270-GY; J1170; J1650; J1940; J2250; J2270; J2405; J2704; J3430; J7030; J7040; P9016; P9017

== ENCOUNTER 2017-11-21 11:07 | Observation (INO) | payer MEDICARE, OTHER ==
--- NOTE | 2017-11-21 11:38 | EDM.PDOC ---
ED HPI GENERAL MEDICAL PROBLEM - General Chief Complaint: Respiratory Problem Stated Complaint: SOB Time Seen by Provider: 11/21/17 11:37 Source of Information: Reports: Patient - History of Present Illness INITIAL COMMENTS - FREE TEXT/NARRATIVE: HISTORY AND PHYSICAL: History of present illness: [Patient presents with shortness breath orthopnea unable to walk from her bedroom to the bathroom in her home without significant shortness breath at rest she is in no distress but has to remains sitting up no pursed lip breathing or retractions No fever nausea vomiting chills sweats Recent inpatient stay for GI bleeding 2 weeks prior ] Review of systems: As per history of present illness and below otherwise all systems reviewed and negative. Past medical history: As per history of present illness and as reviewed below otherwise noncontributory. Surgical history: As per history of present illness and as reviewed below otherwise noncontributory. Social history: No reported history of drug or alcohol abuse. Family history: As per history of present illness and as reviewed below otherwise noncontributory. Physical exam: HEENT: Atraumatic, normocephalic, pupils reactive, negative for conjunctival pallor or scleral icterus, mucous membranes moist, throat clear, neck supple, nontender, trachea midline. Lungs: Clear to auscultation, breath sounds equal bilaterally, chest nontender. Heart: S1S2, regular, negative for clicks, rubs, or JVD. Abdomen: Soft, nondistended, nontender. Negative for masses or hepatosplenomegaly. Negative for costovertebral tenderness. Pelvis: Stable nontender. Genitourinary: Deferred. Rectal: Deferred. Extremities: Atraumatic, negative for cords or calf pain. Neurovascular unremarkable. Neuro: Awake, alert, oriented. Cranial nerves II through XII unremarkable. Cerebellum unremarkable. Motor and sensory unremarkable throughout. Exam nonfocal. Diagnostics: [Lab as below EKG Chest 1 view ] Therapeutics: [Normal saline TKO Lasix 40 mg IV ] Impression: [Short of breath] CHF exacerbation Medication noncompliance Chronic history of baseline Definitive disposition and diagnosis as appropriate pending reevaluation and review of above. - Related Data Allergies Allergy/AdvReac Type Severity Reaction Status Date / Time No Known Allergies Allergy Verified 11/21/17 11:27 Home Meds: Home Meds Warfarin [Coumadin] 6 mg PO BEDTIME 11/28/16 [History] DULoxetine HCl [Duloxetine HCl] 60 mg PO BEDTIME 07/18/17 [History] traMADol [Ultram] 50 mg PO Q8H #90 tablet 07/23/17 [Rx] Lisinopril [Prinivil] 30 mg PO BEDTIME 08/22/17 [History] Polyethylene Glycol 3350 [MiraLAX] 17 gm PO DAILY 08/22/17 [History] Spironolactone [Aldactone] 12.5 mg PO DAILY tablet 08/24/17 [Rx] Pantoprazole [ProTONIX] 40 mg PO DAILY 09/24/17 [History] oxyCODONE ER [OxyCONTIN] 20 mg PO Q12HR 11/08/17 [History] Furosemide [Lasix] 80 mg PO DAILY #0 11/14/17 [Rx] Metoprolol Tartrate [Lopressor] 75 mg PO TID tablet 11/14/17 [Rx] Sucralfate [Carafate] 1 gm PO Q6H #28 cup 11/14/17 [Rx] oxyCODONE HCl [Oxycodone HCl] 10 mg PO Q6HR PRN #30 tablet 11/14/17 [Rx] Past Medical History HEENT History: Reports: Other (See Below) Other HEENT History: no teeth or dentures Cardiovascular History: Reports: Afib, Heart Failure, Heart Valve Replacement, Hypertension Respiratory History: Reports: COPD Gastrointestinal History: Reports: GERD Other Gastrointestinal History: acid reflux Genitourinary History: Reports: None 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: Musculoskeletal History: Reports: Arthritis, Back Pain, Chronic, Other (See Below) Other Musculoskeletal History: scoliosis, bulging discs, carpal tunnel, restless leg Neurological History: Reports: TIA Psychiatric History: Reports: Anxiety, Depression Endocrine/Metabolic History: Reports: None Hematologic History: Reports: Anticoagulation Therapy Immunologic History: Reports: None Oncologic (Cancer) History: Reports: Breast Other Oncologic History: right breast ca Dermatologic History: Reports: None - Past Surgical History Head Surgeries/Procedures: Reports: None GI Surgical History: Reports: Bariatric Procedure, Cholecystectomy, Other (See Below) Female Surgical History: Reports: Tubal Ligation Musculoskeletal Surgical History: Reports: Carpal Tunnel, Other (See Below) Social & Family History - Family History Family Medical History: Noncontributory - Tobacco Use Smoking Status *Q: Never Smoker Years of Tobacco use: 50 Packs/Tins Daily: 0.5 Used Tobacco, but Quit: Yes Month Tobacco Last Used: July Second Hand Smoke Exposure: No - Caffeine Use Caffeine Use: Reports: Coffee Caffeine Use Comment: 3-4 cups a day - Recreational Drug Use Recreational Drug Use: No - Living Situation & Occupation Living situation: Reports: , with Family Occupation: Retired ED ROS GENERAL - Review of Systems Review Of Systems: ROS reveals no pertinent complaints other than HPI. ED EXAM, GENERAL - Physical Exam Exam: See Below Course - Vital Signs Last Recorded V/S: Last Vital Signs Temp 96.9 F 11/21/17 11:23 Pulse 69 11/21/17 11:23 Resp 18 11/21/17 11:23 BP 173/77 H 11/21/17 11:23 Pulse Ox 95 11/21/17 11:23 - Orders/Labs/Meds Orders: Active Orders 24 hr Category Date Time Status EKG Documentation Completion [RC] STAT Care 11/21/17 11:26 Active RT Aerosol Therapy [RC] ASDIRECTED Care 11/21/17 12:10 Active CKMB [CHEM] Stat Lab 11/21/17 11:35 Received COMPREHENSIVE METABOLIC PN,CMP [CHEM] Stat Lab 11/21/17 11:35 Received CREATINE KINASE,CK [CHEM] Stat Lab 11/21/17 11:35 Received INFLUENZA A+B AG SCREEN [RM] Stat Lab 11/21/17 11:26 Uncollected TROPONIN I [CHEM] Stat Lab 11/21/17 11:35 Received UA W/MICROSCOPIC [URIN] Stat Lab 11/21/17 11:26 Uncollected Sodium Chloride 0.9% [Normal Saline] 1,000 ml Med 11/21/17 12:15 Active IV STAT Medication Orders Sodium Chloride (Normal Saline) 1,000 mls @ 30 mls/hr IV STAT [facility] Labs: Laboratory Tests 11/21/17 11/21/17 11/21/17 Range/Units 11:35 11:35 11:35 WBC 8.92 (4.0-11.0) K/uL RBC 3.77 L (4.30-5.90) M/uL Hgb 9.5 L (12.0-16.0) g/dL Hct 32.3 L (36.0-46.0) % MCV 85.7 (80.0-98.0) fL MCH 25.2 L (27.0-32.0) pg MCHC 29.4 L (31.0-37.0) g/dL RDW Std Deviation 55.6 (28.0-62.0) fl RDW Coeff of Shaun 18 H (11.0-15.0) % Plt Count 368 (150-400) K/uL MPV 9.30 (7.40-12.00) fL Neut % (Auto) 63.8 (48.0-80.0) % Lymph % (Auto) 25.2 (16.0-40.0) % [place] % (Auto) 7.0 (0.0-15.0) % Eos % (Auto) 3.3 (0.0-7.0) % Baso % (Auto) 0.7 (0.0-1.5) % Neut # (Auto) 5.7 (1.4-5.7) K/uL Lymph # (Auto) 2.3 (0.6-2.4) K/uL [place] # (Auto) 0.6 (0.0-0.8) K/uL Eos # (Auto) 0.3 (0.0-0.7) K/uL Baso # (Auto) 0.1 (0.0-0.1) K/uL Nucleated RBC % 0.0 /100WBC Nucleated RBCs # 0 K/uL INR 3.36 H (0.86-1.11) B-Natriuretic Peptide 1548 H (<100) PG/ML Meds: Medications Generic Name Dose Route Start Last Admin Trade Name Freq PRN Reason Stop Dose Admin Sodium Chloride 1,000 mls @ 30 mls/hr 11/21/17 12:15 Normal Saline IV STAT [facility] Discontinued Medications Generic Name Dose Route Start Last Admin Trade Name Freq PRN Reason Stop Dose Admin Albuterol/Ipratropium 3 ml 11/21/17 12:10 Duoneb 3.0-0.5 Mg/3 Ml NEB 11/21/17 12:11 ONETIME ONE Furosemide 40 mg 11/21/17 12:10 Lasix IVPUSH 11/21/17 12:11 NOW ONE Methylprednisolone Sodium Succinate 125 mg 11/21/17 12:10 Solu-Medrol IVPUSH 11/21/17 12:11 ONETIME ONE Departure - Departure Time of Disposition: 12:18 Disposition: Admitted As Inpatient 66 Condition: Fair Clinical Impression: CHF (congestive heart failure) - Discharge Information Referrals: Jose Jones MD [Primary Care Provider] - Forms: ED Department Discharge - My Orders Last 24 Hours: My Active Orders 11/21/17 11:26 EKG Documentation Completion [RC] STAT INFLUENZA A+B AG SCREEN [RM] Stat UA W/MICROSCOPIC [URIN] Stat 11/21/17 11:35 CKMB [CHEM] Stat COMPREHENSIVE METABOLIC PN,CMP [CHEM] Stat CREATINE KINASE,CK [CHEM] Stat TROPONIN I [CHEM] Stat 11/21/17 12:10 RT Aerosol Therapy [RC] ASDIRECTED 11/21/17 12:15 Sodium Chloride 0.9% [Normal Saline] 1,000 ml IV STAT - Assessment/Plan Last 24 Hours: My Active Orders 11/21/17 11:26 EKG Documentation Completion [RC] STAT INFLUENZA A+B AG SCREEN [RM] Stat UA W/MICROSCOPIC [URIN] Stat 11/21/17 11:35 [facility] [CHEM] Stat COMPREHENSIVE METABOLIC PN,CMP [CHEM] Stat CREATINE KINASE,CK [CHEM] Stat TROPONIN I [CHEM] Stat 11/21/17 12:10 RT Aerosol Therapy [RC] ASDIRECTED 11/21/17 12:15 Sodium Chloride 0.9% [Normal Saline] 1,000 ml IV STAT
--- NOTE | 2017-11-21 12:06 | CR ---
EXAMINATION: Portable chest radiograph. HISTORY: Shortness of breath. FINDINGS: The trachea is midline. The heart is borderline in size. Increased central pulmonary vasculature is n oted. No pleural effusion or pneumothorax. Median sternotomy wires. Osseous structures appear osteopenic. Degenerative changes noted within the shoulders bilaterally. IMPRESSION: 1. Increased interstitial prominence, pulmonary vascular congestion, likely exacerbation of CHF.
[2017-11-21] MEDS ORDERED: methylPREDNISolone Sodium Succinate 125 MG/2 ML SDV IVPUSH ONE (12:10)
[2017-11-21] MEDS ORDERED: Albuterol/Ipratropium 3.0-0.5 MG/3 ML Neb Soln NEB ONE (12:10)
[2017-11-21] MEDS ORDERED: Furosemide 40 MG/4 ML VIAL IVPUSH ONE (12:10)
[2017-11-21 12:12] LABS: CHLORIDE,CL 106 mmol/L (98-110); SODIUM,NA 141 mmol/L (136-146)
[2017-11-21] MEDS ORDERED: Sodium Chloride 0.9% 1,000 ML IV SCH (12:15)
[2017-11-21] MEDS ORDERED: Ondansetron 4 MG/2 ML SDV IVPUSH PRN (13:18)
--- NOTE | 2017-11-21 13:27 | PCM.HP ---
H&P History of Present Illness - General Date of Service: 11/21/17 - History of Present Illness Initial Comments - Free Text/Narative: 67-year-old female with a history of congestive heart failure, atrial fibrillation on anticoagulation presented today to the ER with chief complaint of shortness of breath. Patient states that this began to occur last night when she was trying to sleep and has been progressively been getting worse. Currently she describes her shortness of breath as mild. She tells me that she went to the coagulation clinic this morning and was found to have a supratherapeutic INR of 3.3. She tried to make an appointment with her primary care provider but was advised to go to the ER instead. She denies any chest pain , numbness or tingling, nausea or vomiting. Denies any fevers or chills. ER course: Chest x-ray indicative of pulmonary vascular congestion likely secondary to congestive heart failure exacerbation BNP 1548 Lasix 40 mg IV once DuoNeb IV normal saline bolus 1 L EKG normal sinus rhythm - Related Data Allergies/Adverse Reactions: Allergies Allergy/AdvReac Type Severity Reaction Status Date / Time No Known Allergies Allergy Verified 11/21/17 11:27 Home Medications: Home Meds Warfarin [Coumadin] 5 mg PO BEDTIME 11/28/16 [History] DULoxetine HCl [Duloxetine HCl] 60 mg PO BEDTIME 07/18/17 [History] traMADol [Ultram] 50 mg PO Q8H #90 tablet 07/23/17 [Rx] Lisinopril [Prinivil] 30 mg PO BEDTIME 08/22/17 [History] Polyethylene Glycol 3350 [MiraLAX] 17 gm PO DAILY 08/22/17 [History] Spironolactone [Aldactone] 12.5 mg PO DAILY tablet 08/24/17 [Rx] Pantoprazole [ProTONIX] 40 mg PO DAILY 09/24/17 [History] oxyCODONE ER [OxyCONTIN] 20 mg PO Q12HR 11/08/17 [History] Furosemide [Lasix] 80 mg PO DAILY #0 11/14/17 [Rx] Metoprolol Tartrate [Lopressor] 75 mg PO TID tablet 11/14/17 [Rx] Sucralfate [Carafate] 1 gm PO Q6H #28 cup 11/14/17 [Rx] oxyCODONE HCl [Oxycodone HCl] 10 mg PO Q4HR PRN 11/21/17 [History] Past Medical History HEENT History: Reports: Other (See Below) Other HEENT History: no teeth or dentures Cardiovascular History: Reports: Afib, Heart Failure, Heart Valve Replacement, Hypertension Respiratory History: Reports: COPD Gastrointestinal History: Reports: GERD Other Gastrointestinal History: acid reflux Genitourinary History: Reports: None 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 PROFESSIONAL History: Reports: Musculoskeletal History: Reports: Arthritis, Back Pain, Chronic, Other (See Below) Other Musculoskeletal History: scoliosis, bulging discs, carpal tunnel, restless leg Neurological History: Reports: TIA Psychiatric History: Reports: Anxiety, Depression Endocrine/Metabolic History: Reports: None Hematologic History: Reports: Anticoagulation Therapy Immunologic History: Reports: None Oncologic (Cancer) History: Reports: Breast Other Oncologic History: right breast ca Dermatologic History: Reports: None - Past Surgical History Head Surgeries/Procedures: Reports: None GI Surgical History: Reports: Bariatric Procedure, Cholecystectomy, Other (See Below) Female Surgical History: Reports: Tubal Ligation Musculoskeletal Surgical History: Reports: Carpal Tunnel, Other (See Below) Social & Family History - Family History Family Medical History: Noncontributory - Tobacco Use Smoking Status *Q: Never Smoker Years of Tobacco use: 50 Packs/Tins Daily: 0.5 Used Tobacco, but Quit: Yes Month Tobacco Last Used: July Second Hand Smoke Exposure: No - Caffeine Use Caffeine Use: Reports: Coffee Caffeine Use Comment: 3-4 cups a day - Recreational Drug Use Recreational Drug Use: No - Living Situation & Occupation Living situation: Reports: , with Family Occupation: Retired H&P Review of Systems - Review of Systems: Review Of Systems: See Below General: Reports: No Symptoms HEENT: Reports: No Symptoms Pulmonary: Reports: Shortness of Breath. Denies: Wheezing, Pleuritic Chest Pain , Cough, Sputum, Hemoptysis Cardiovascular: Reports: Dyspnea on Exertion, Orthopnea. Denies: Chest Pain, Edema, Syncope Gastrointestinal: Reports: No Symptoms Genitourinary: Reports: No Symptoms Musculoskeletal: Reports: No Symptoms Skin: Reports: No Symptoms Psychiatric: Reports: No Symptoms Neurological: Reports: No Symptoms Hematologic/Lymphatic: Reports: No Symptoms Immunologic: Reports: No Symptoms Exam - Exam Exam: See Below - Vital Signs Vital Signs: Last Vital Signs Temp 36.1 C 11/21/17 11:23 Pulse 70 11/21/17 13:02 Resp 18 11/21/17 13:02 BP 194/77 H 11/21/17 13:02 Pulse Ox 96 11/21/17 13:02 Weight: 70.4 kg - Exam General: Alert, Oriented, Cooperative HEENT: Conjunctiva Clear, EACs Clear, EOMI, Hearing Intact, Mucosa Moist & [place] Neck: Supple, Trachea Midline Lungs: Clear to Auscultation, Normal Respiratory Effort Cardiovascular: Regular Rate, Regular Rhythm GI/Abdominal Exam: Normal Bowel Sounds, Soft Back Exam: Normal Inspection, Full Range of Motion. No: CVA Tenderness (L), CVA Tenderness (R) Extremities: Normal Inspection, Normal Range of Motion, Pedal Edema (trace. ) Neurological: Cranial Nerves Intact Neuro Extensive - Mental Status: Alert, Oriented x3 Neuro Extensive - Motor, Sensory, Reflexes: CN II-XII Intact Psychiatric: Alert, Normal Affect, Normal Mood - Patient Data Result Diagrams: 11/21/17 11:35 11/21/17 11:35 *Q Meaningful Use (ADM) - VTE *Q VTE Criteria *Q: - Stroke *Q Stroke Criteria *Q: - AMI *Q AMI Criteria *Q: Problem List Initiated/Reviewed/Updated: Yes Orders Last 24hrs: Active Orders 24 hr Category Date Time Status Ambulate [RC] ASDIRECTED Care 11/21/17 13:18 Ordered Oxygen Therapy [RC] PRN Care 11/21/17 13:18 Ordered Up ad Yuki [RC] ASDIRECTED Care 11/21/17 13:18 Ordered VTE/DVT Education [RC] PER UNIT ROUTINE Care 11/21/17 13:18 Ordered Vital Signs [RC] Q4H Care 11/21/17 13:18 Ordered Fluid Restriction [DIET] Diet 11/21/17 Dinner Ordered Heart Healthy Diet [DIET] Diet 11/21/17 Dinner Active BASIC METABOLIC PANEL,BMP [CHEM] AM Lab 11/22/17 05:11 Ordered CBC W/O DIFF,HEMOGRAM [HEME] AM Lab 11/22/17 05:11 Ordered DULoxetine [Cymbalta] Med 11/21/17 21:00 Ordered 60 mg PO BEDTIME Lisinopril [Prinivil] Med 11/21/17 21:00 Ordered 30 mg PO BEDTIME Metoprolol Tartrate [Lopressor] Med 11/21/17 14:00 Ordered 75 mg PO TID Ondansetron [Zofran] Med 11/21/17 13:18 Ordered 4 mg IVPUSH Q4H PRN Pantoprazole [ProTONIX] Med 11/22/17 09:00 Ordered 40 mg PO DAILY Polyethylene Glycol 3350 [MiraLAX] Med 11/22/17 09:00 Ordered 17 gm PO DAILY Spironolactone [Aldactone] Med 11/22/17 09:00 Ordered 12.5 mg PO DAILY Sucralfate [Carafate] Med 11/21/17 13:15 Ordered 1 gm PO Q6H oxyCODONE ER [OxyCONTIN] Med 11/21/17 21:00 Ordered 20 mg PO Q12HR oxyCODONE HCl [Oxycodone HCl] Med 11/21/17 13:09 Ordered 10 mg PO Q4HR PRN Resuscitation Status Routine Resus Stat 11/21/17 13:18 Ordered Medication Orders Duloxetine HCl (Cymbalta) 60 mg PO BEDTIME [facility] Sodium Chloride (Normal Saline) 1,000 mls @ 30 mls/hr IV STAT [facility] Last Admin: 11/21/17 12:51 Dose: 30 mls/hr Lisinopril (Prinivil) 30 mg PO BEDTIME [facility] Metoprolol Tartrate (Lopressor) 75 mg PO TID [facility] Non-Formulary Medication (Oxycodone Hcl [Oxycodone Hcl]) 10 mg PO Q4HR PRN PRN Reason: Pain Ondansetron HCl (Zofran) 4 mg IVPUSH Q4H PRN PRN Reason: Nausea Oxycodone HCl (Oxycontin) 20 mg PO Q12HR [facility] Pantoprazole Sodium (Protonix) 40 mg PO DAILY [facility] Polyethylene Glycol (Miralax) 17 gm PO DAILY [facility] Spironolactone (Aldactone) 12.5 mg PO DAILY [facility] Sucralfate (Carafate) 1 gm PO Q6H [facility] Assessment/Plan Comment:: Assessment: #1. Shortness of breath secondary to congestive heart failure exacerbation #2. Hypertension #3. Supratherapeutic INR #4. History of congestive heart failure, atrial fibrillation, hypertension Plan: #1. Admit to the floor for observation #2. Fluid restriction to 2L, heart healthy diet. Strict I's and O's. Daily weights. Up ad yuki. #3. IV Lasix 40 mg every 8 hours #4. Continue home medications #5. Hold on Coumadin tonight dosage #6. Recheck INR tomorrow morning along with CBC, BMP
[2017-11-21] MEDS ORDERED: Furosemide 40 MG/4 ML VIAL IVPUSH SCH (13:45)
[2017-11-21] MEDS: Sucralfate Suspension 1 GM/10 ML Cup PO SCH ×2 (14:09→18:14)
[2017-11-21] MEDS: oxyCODONE 5 MG Tab PO PRN ×3 (14:09→21:57)
[2017-11-21] MEDS: Metoprolol Tartrate 25 MG Tab PO SCH ×2 (14:10→21:32)
[2017-11-21] MEDS ORDERED: DULoxetine 60 MG Cap PO SCH (21:00)
[2017-11-21] MEDS ORDERED: Lisinopril 10 MG Tab PO SCH (21:00)
[2017-11-21] MEDS: oxyCODONE ER 20 MG TAB.ER PO SCH (21:14)
[2017-11-22] MEDS: Sucralfate Suspension 1 GM/10 ML Cup PO SCH ×2 (01:34→06:26)
[2017-11-22] MEDS: oxyCODONE 5 MG Tab PO PRN ×2 (04:10→09:40)
[2017-11-22 05:56] LABS: CHLORIDE,CL 101 mmol/L (98-110); SODIUM,NA 138 mmol/L (136-146)
[2017-11-22] MEDS: Furosemide 40 MG/4 ML VIAL IVPUSH SCH ×2 (06:26→09:26)
[2017-11-22] MEDS: Metoprolol Tartrate 25 MG Tab PO SCH (06:27)
[2017-11-22] MEDS ORDERED: Polyethylene Glycol 3350 Powder 17 GM Packet PO SCH (09:00)
[2017-11-22] MEDS ORDERED: Pantoprazole 40 MG Tab.CR PO SCH (09:00)
[2017-11-22] MEDS ORDERED: Spironolactone 25 MG Tab PO SCH (09:00)
[2017-11-22 09:24] VITALS: BP 117/54
[2017-11-22] MEDS: oxyCODONE ER 20 MG TAB.ER PO SCH (09:24)
[2017-11-22] MEDS ORDERED: Warfarin 5 MG Tab PO SCH (21:00)
--- NOTE | 2017-11-23 10:39 | PCM.DCSUM1 ---
Discharge Summary - Hospital Course Free Text/Narrative:: Admission date: November 21, 2017 Discharge date November 22, 2017 Admission diagnosis: #1. Shortness of breath secondary to congestive heart failure exacerbation #2. Hypertension #3. Supratherapeutic INR #4. History of congestive heart failure, atrial fibrillation, hypertension Discharge diagnosis: #1. Congestive heart failure exacerbation-stable #2. Hypertension, stable #3. Therapeutic INR #4. History of CHF, atrial fibrillation, hypertension Hospital course: This is a 67-year-old female with extensive cardiovascular history that presented to the emergency department on 21 November complaining of shortness of breath. Patient was ultimately admitted after chest x-ray was consistent with CHF exacerbation along with clinical findings of peripheral edema and shortness of breath. Patient admitted for observation and was given IV Lasix 40 mg every 8 hours. She is on a fluid restriction diet. The next morning when examined, the patient stated that her shortness of breath greatly improved. Her breathing status also improved. She was advised to double up on her home dosage of Lasix for the next 3 days and then return back to her normal dosage of 80 mg daily. Patient was also found to have a supratherapeutic INR on arrival. The Coumadin dosage was held for the night of the initial admission. Recheck within therapeutic levels the following morning. She was advised to follow-up with primary care for management of the INR. She is also to follow-up with cardiology. Discharge instructions: #1. Follow-up with primary care provider, Dr. Jones along with cardiology #2. Advised to return to seek medical attention if she rates the chest pain, shortness of breath, palpitations, nausea or vomiting. Patient agrees with plan. - Discharge Data Discharge Date: 11/22/17 Discharge Disposition: Home, Self-Care 01 Condition: Fair - Patient Instructions Diet: Heart Healthy Diet Activity: As Tolerated Notify Provider of: Fever, Increased Pain, Swelling and Redness - Discharge Plan Prescriptions/Med Rec: Furosemide [Lasix] 80 mg PO BID 3 Days #6 tab Home Medications: Home Meds Warfarin [Coumadin] 5 mg PO BEDTIME 11/28/16 [History] DULoxetine HCl [Duloxetine HCl] 60 mg PO BEDTIME 07/18/17 [History] traMADol [Ultram] 50 mg PO Q8H #90 tablet 07/23/17 [Rx] Lisinopril [Prinivil] 30 mg PO BEDTIME 08/22/17 [History] Polyethylene Glycol 3350 [MiraLAX] 17 gm PO DAILY 08/22/17 [History] Spironolactone [Aldactone] 12.5 mg PO DAILY tablet 08/24/17 [Rx] Pantoprazole [ProTONIX] 40 mg PO DAILY 09/24/17 [History] oxyCODONE ER [OxyCONTIN] 20 mg PO Q12HR 11/08/17 [History] Furosemide [Lasix] 80 mg PO DAILY #0 11/14/17 [Rx] Metoprolol Tartrate [Lopressor] 75 mg PO TID tablet 11/14/17 [Rx] Sucralfate [Carafate] 1 gm PO Q6H #28 cup 11/14/17 [Rx] oxyCODONE HCl [Oxycodone HCl] 10 mg PO Q4HR PRN 11/21/17 [History] Furosemide [Lasix] 80 mg PO BID 3 Days #6 tab 11/22/17 [Rx] Patient Handouts: Furosemide tablets, Heart Failure, [id number] Referrals: [facility] [Outside] Khris Dillard MD [Physician] - 12/05/17 2:30 pm Jose Jones MD [Primary Care Provider] - 11/29/17 2:30 pm - Discharge Summary/Plan Comment Discharge Summary/Plan Comment: Admission date: November 21, 2017 Discharge date November 22, 2017 Admission diagnosis: #1. Shortness of breath secondary to congestive heart failure exacerbation #2. Hypertension #3. Supratherapeutic INR #4. History of congestive heart failure, atrial fibrillation, hypertension Discharge diagnosis: #1. Congestive heart failure exacerbation-stable #2. Hypertension, stable #3. Therapeutic INR #4. History of CHF, atrial fibrillation, hypertension Hospital course: This is a 67-year-old female with extensive cardiovascular history that presented to the emergency department on 21 November complaining of shortness of breath. Patient was ultimately admitted after chest x-ray was consistent with CHF exacerbation along with clinical findings of peripheral edema and shortness of breath. Patient admitted for observation and was given IV Lasix 40 mg every 8 hours. She is on a fluid restriction diet. The next morning when examined, the patient stated that her shortness of breath greatly improved. Her breathing status also improved. She was advised to double up on her home dosage of Lasix for the next 3 days and then return back to her normal dosage of 80 mg daily. Patient was also found to have a supratherapeutic INR on arrival. The Coumadin dosage was held for the night of the initial admission. Recheck within therapeutic levels the following morning. She was advised to follow-up with primary care for management of the INR. She is also to follow-up with cardiology. Discharge instructions: #1. Follow-up with primary care provider, Dr. Jones along with cardiology #2. Advised to return to seek medical attention if she rates the chest pain, shortness of breath, palpitations, nausea or vomiting. Patient agrees with plan. - Patient Data Vitals - Most Recent: Last Vital Signs Temp 36.2 C 11/22/17 08:00 Pulse 71 11/22/17 08:00 Resp 20 11/22/17 08:00 BP 117/54 L 11/22/17 08:00 Pulse Ox 96 11/22/17 08:00 Weight - Most Recent: 68.175 kg Med Orders - Current: Current Medications Discontinued Medications Albuterol/Ipratropium (Duoneb 3.0-0.5 Mg/3 Ml) 3 ml NEB ONETIME ONE Stop: 11/21/17 12:11 Last Admin: 11/21/17 12:22 Dose: 3 ml Duloxetine HCl (Cymbalta) 60 mg PO BEDTIME [facility] Last Admin: 11/21/17 21:13 Dose: 60 mg Furosemide (Lasix) 40 mg IVPUSH NOW ONE Stop: 11/21/17 12:11 Last Admin: 11/21/17 12:55 Dose: 40 mg Furosemide (Lasix) 40 mg IVPUSH Q8H [facility] Last Admin: 11/21/17 14:11 Dose: 40 mg Furosemide (Lasix) 40 mg IVPUSH TID@0600,1000,1400 [facility] Last Admin: 11/22/17 09:26 Dose: 40 mg Sodium Chloride (Normal Saline) 1,000 mls @ 30 mls/hr IV STAT [facility] Last Admin: 11/21/17 12:51 Dose: 30 mls/hr Lisinopril (Prinivil) 30 mg PO BEDTIME [facility] Last Admin: 11/21/17 21:14 Dose: 30 mg Methylprednisolone Sodium Succinate (Solu-Medrol) 125 mg IVPUSH ONETIME ONE Stop: 11/21/17 12:11 Last Admin: 11/21/17 12:53 Dose: 125 mg Metoprolol Tartrate (Lopressor) 75 mg PO TID [facility] Last Admin: 11/22/17 06:27 Dose: 75 mg Ondansetron HCl (Zofran) 4 mg IVPUSH Q4H PRN PRN Reason: Nausea Oxycodone HCl (Oxycontin) 20 mg PO Q12HR [facility] Last Admin: 11/22/17 09:24 Dose: 20 mg Oxycodone HCl (Oxycodone) 10 mg PO Q4H PRN PRN Reason: Pain Last Admin: 11/22/17 09:40 Dose: 10 mg Pantoprazole Sodium (Protonix) 40 mg PO DAILY [facility] Last Admin: 11/22/17 09:25 Dose: 40 mg Polyethylene Glycol (Miralax) 17 gm PO DAILY [facility] Last Admin: 11/22/17 09:26 Dose: Not Given Spironolactone (Aldactone) 12.5 mg PO DAILY [facility] Last Admin: 11/22/17 09:25 Dose: 12.5 mg Sucralfate (Carafate) 1 gm PO Q6H [facility] Last Admin: 11/22/17 06:26 Dose: 1 gm Warfarin Sodium (Coumadin) 5 mg PO BEDTIME [facility] *Q Meaningful Use (DIS) - VTE *Q VTE Criteria *Q: - Stroke *Q Stroke Criteria *Q: - AMI *Q AMI Criteria *Q:
== END 2017-11-22 09:52 | disposition home or self-care (01) ==
LOC: MW.ED 11:07 → INTOOBSV 12:24 → MW.MS 12:24
PROVIDERS: ADMIT Internal Medicine; ATTEND Internal Medicine
DX: I11.0 Hypertensive heart disease with heart failure (principal); I50.9 Heart failure, unspecified; I48.91 Unspecified atrial fibrillation; R79.1 Abnormal coagulation profile; J44.9 Chronic obstructive pulmonary disease, unspecified; K21.9 Gastro-esophageal reflux disease without esophagitis; M19.90 Unspecified osteoarthritis, unspecified site; M41.9 Scoliosis, unspecified; F41.9 Anxiety disorder, unspecified; F32.9 Major depressive disorder, single episode, unspecified; Z85.3 Personal history of malignant neoplasm of breast; Z79.01 Long term (current) use of anticoagulants; Z79.899 Other long term (current) drug therapy; Z95.2 Presence of prosthetic heart valve; Z86.73 Personal history of transient ischemic attack (TIA), and cerebral infarction without residual deficits; Z90.49 Acquired absence of other specified parts of digestive tract; Z98.51 Tubal ligation status
CPT/HCPCS: 36415; 71045; 80048; 80053; 81001; 82550; 82553; 83880; 84484; 85025; 85027; 85610; 93005; 94640; 96361; 96374; 96375; 99285; A9270; J1940; J2930; J7040; 96376; 99284; G0378

== ENCOUNTER 2017-12-05 14:00 | Emergency (ER) | payer MEDICARE, OTHER ==
--- NOTE | 2017-12-05 14:07 | EDM.PDOC ---
ED HPI GENERAL MEDICAL PROBLEM - General Chief Complaint: Cardiovascular Problem Stated Complaint: AMBULANCE Time Seen by Provider: 12/05/17 14:06 Source of Information: Reports: Patient, EMS - History of Present Illness INITIAL COMMENTS - FREE TEXT/NARRATIVE: HISTORY AND PHYSICAL: History of present illness: Patient arrives via EMS with complaint of dizziness She was recently started on amiodarone by cardiology, she had an cardiology appointment to 15 which is in 10 minutes, she presents as above tearful No fever nausea vomiting chills sweats Dr. Zabala is been in to evaluate and is comfortable with her going home from his standpoint Review of systems: As per history of present illness and below otherwise all systems reviewed and negative. Past medical history: As per history of present illness and as reviewed below otherwise noncontributory. Surgical history: As per history of present illness and as reviewed below otherwise noncontributory. Social history: No reported history of drug or alcohol abuse. Family history: As per history of present illness and as reviewed below otherwise noncontributory. Physical exam: HEENT: Atraumatic, normocephalic, pupils reactive, negative for conjunctival pallor or scleral icterus, mucous membranes moist, throat clear, neck supple, nontender, trachea midline. Lungs: Clear to auscultation, breath sounds equal bilaterally, chest nontender. Heart: S1S2, regular, negative for clicks, rubs, or JVD. Abdomen: Soft, nondistended, nontender. Negative for masses or hepatosplenomegaly. Negative for costovertebral tenderness. Pelvis: Stable nontender. Genitourinary: Deferred. Rectal: Deferred. Extremities: Atraumatic, negative for cords or calf pain. Neurovascular unremarkable. Neuro: Awake, alert, oriented. Cranial nerves II through XII unremarkable. Cerebellum unremarkable. Motor and sensory unremarkable throughout. Exam nonfocal. Diagnostics: [CBC CMP UA troponin EKG Chest [address] Influenza ] Patient is offered observation admission she refused as she does not like staying in hospitals Therapeutics: [Morphine 2 mg IV Phenergan 25 mg by mouth every 6 when necessary #30 no refill ] Impression: [Dizziness-improved/resolved Chronic history of baseline Likely mild narcotic withdrawal Definitive disposition and diagnosis as appropriate pending reevaluation and review of above. Generalized Pain Pain Score (Numeric/FACES): 7 - Related Data Allergies Allergy/AdvReac Type Severity Reaction Status Date / Time No Known Allergies Allergy Verified 12/05/17 14:12 Home Meds: Home Meds Warfarin [Coumadin] 5 mg PO BEDTIME 11/28/16 [History] DULoxetine HCl [Duloxetine HCl] 60 mg PO BEDTIME 07/18/17 [History] traMADol [Ultram] 50 mg PO Q8H #90 tablet 07/23/17 [Rx] Lisinopril [Prinivil] 30 mg PO BEDTIME 08/22/17 [History] Polyethylene Glycol 3350 [MiraLAX] 17 gm PO DAILY 08/22/17 [History] Spironolactone [Aldactone] 12.5 mg PO DAILY tablet 08/24/17 [Rx] Pantoprazole [ProTONIX] 40 mg PO DAILY 09/24/17 [History] oxyCODONE ER [OxyCONTIN] 20 mg PO Q12HR 11/08/17 [History] Furosemide [Lasix] 80 mg PO DAILY #0 11/14/17 [Rx] Metoprolol Tartrate [Lopressor] 75 mg PO TID tablet 11/14/17 [Rx] Sucralfate [Carafate] 1 gm PO Q6H #28 cup 11/14/17 [Rx] oxyCODONE HCl [Oxycodone HCl] 10 mg PO Q4HR PRN 11/21/17 [History] Furosemide [Lasix] 80 mg PO BID 3 Days #6 tab 11/22/17 [Rx] amLODIPine Besylate [Amlodipine Besylate] 0 mg PO DAILY 12/05/17 [History] Past Medical History HEENT History: Reports: Other (See Below) Other HEENT History: no teeth or dentures Cardiovascular History: Reports: Afib, Heart Failure, Heart Valve Replacement, Hypertension Respiratory History: Reports: COPD Gastrointestinal History: Reports: GERD Other Gastrointestinal History: acid reflux Genitourinary History: Reports: None BAND SEWER History: Reports: Musculoskeletal History: Reports: Arthritis, Back Pain, Chronic, Other (See Below) Other Musculoskeletal History: scoliosis, bulging discs, carpal tunnel, restless leg Neurological History: Reports: TIA Psychiatric History: Reports: Anxiety, Depression Endocrine/Metabolic History: Reports: None Hematologic History: Reports: Anticoagulation Therapy Immunologic History: Reports: None Oncologic (Cancer) History: Reports: Breast Other Oncologic History: right breast ca Dermatologic History: Reports: None - Past Surgical History Head Surgeries/Procedures: Reports: None GI Surgical History: Reports: Bariatric Procedure, Cholecystectomy, Other (See Below) Female Surgical History: Reports: Tubal Ligation Musculoskeletal Surgical History: Reports: Carpal Tunnel, Other (See Below) Social & Family History - Family History Family Medical History: Noncontributory - Tobacco Use Smoking Status *Q: Never Smoker Years of Tobacco use: 50 Packs/Tins Daily: 0.5 Used Tobacco, but Quit: Yes Month Tobacco Last Used: July Second Hand Smoke Exposure: No - Caffeine Use Caffeine Use: Reports: Coffee Caffeine Use Comment: 3-4 cups a day - Recreational Drug Use Recreational Drug Use: No - Living Situation & Occupation Living situation: Reports: , with Family Occupation: Retired ED ROS GENERAL - Review of Systems Review Of Systems: ROS reveals no pertinent complaints other than HPI. ED EXAM, GENERAL - Physical Exam Exam: See Below Course - Vital Signs Last Recorded V/S: Last Vital Signs Temp 98.3 F 12/05/17 14:09 Pulse 60 12/05/17 14:59 Resp 18 12/05/17 14:59 BP 140/58 L 12/05/17 14:59 Pulse Ox 96 12/05/17 14:59 - Orders/Labs/Meds Orders: Active Orders 24 hr Category Date Time Status EKG Documentation Completion [RC] STAT Care 12/05/17 14:05 Active UA W/MICROSCOPIC [URIN] Stat Lab 12/05/17 14:05 Uncollected Labs: Laboratory Tests 12/05/17 12/05/17 12/05/17 Range/Units 14:27 14:27 14:27 WBC 8.64 (4.0-11.0) K/uL RBC 4.34 (4.30-5.90) M/uL Hgb 10.8 L (12.0-16.0) g/dL Hct 35.7 L (36.0-46.0) % MCV 82.3 (80.0-98.0) fL MCH 24.9 L (27.0-32.0) pg MCHC 30.3 L (31.0-37.0) g/dL RDW Std Deviation 51.7 (28.0-62.0) fl RDW Coeff of Shanu 17 H (11.0-15.0) % Plt Count 356 (150-400) K/uL MPV 10.10 (7.40-12.00) fL Neut % (Auto) 62.2 (48.0-80.0) % Lymph % (Auto) 27.9 (16.0-40.0) % [place] % (Auto) 7.2 (0.0-15.0) % Eos % (Auto) 2.2 (0.0-7.0) % Baso % (Auto) 0.5 (0.0-1.5) % Neut # (Auto) 5.4 (1.4-5.7) K/uL Lymph # (Auto) 2.4 (0.6-2.4) K/uL [place] # (Auto) 0.6 (0.0-0.8) K/uL Eos # (Auto) 0.2 (0.0-0.7) K/uL Baso # (Auto) 0.0 (0.0-0.1) K/uL Nucleated RBC % 0.0 /100WBC Nucleated RBCs # 0 K/uL INR 3.24 Sodium 142 (136-146) mmol/L Potassium 3.9 (3.5-5.1) mmol/L Chloride 102 (98-110) mmol/L Carbon Dioxide 28 (21-31) mmol/L BUN 29 H (6.0-23.0) mg/dL Creatinine 1.2 (0.6-1.5) mg/dL Est Cr Clr Drug Dosing TNP Estimated GFR (MDRD) 44.8 ml/min Glucose 118 H (60-110) mg/dL Calcium 9.7 (8.8-10.8) mg/dL Total Bilirubin 0.3 (0.1-1.5) mg/dL AST 19 (5-40) IU/L ALT 15 (8-54) IU/L Alkaline Phosphatase 90 (40-150) Troponin I < 0.10 (0.0-0.29) NG/ML Total Protein 7.5 (6.0-8.0) g/dL Albumin 4.2 (3.4-4.8) g/dL Globulin 3.3 (2.0-3.5) g/dL Albumin/Globulin Ratio 1.3 (1.3-2.8) Meds: Medications Discontinued Medications Generic Name Dose Route Start Last Admin Trade Name Shannon PRN Reason Stop Dose Admin Morphine Sulfate 2 mg 12/05/17 14:13 12/05/17 15:23 Morphine IVPUSH 12/05/17 14:14 2 mg ONETIME ONE Administration Departure - Departure Time of Disposition: 16:35 Disposition: Home, Self-Care 01 Condition: Good Clinical Impression: Dizziness Forms: ED Department Discharge Additional Instructions: The following information is given to patients seen in the emergency department who are being discharged to home. This information is to outline your options for follow-up care. We provide all patients seen in our emergency department with a follow-up referral. The need for follow-up, as well as the timing and circumstances, are variable depending upon the specifics of your emergency department visit. If you don't have a primary care physician on staff, we will provide you with a referral. We always advise you to contact your personal physician following an emergency department visit to inform them of the circumstance of the visit and for follow-up with them and/or the need for any referrals to a consulting specialist. The emergency department will also refer you to a specialist when appropriate. This referral assures that you have the opportunity for follow-up care with a specialist. All of these measure are taken in an effort to provide you with optimal care, which includes your follow-up. Under all circumstances we always encourage you to contact your private physician who remains a resource for coordinating your care. When calling for follow-up care, please make the office aware that this follow-up is from your recent emergency room visit. If for any reason you are refused follow-up, please contact the [facility] emergency department at and asked to speak to the emergency department charge nurse. - My Orders Last 24 Hours: My Active Orders 12/05/17 14:05 EKG Documentation Completion [RC] STAT UA W/MICROSCOPIC [URIN] Stat - Assessment/Plan Last 24 Hours: My Active Orders 12/05/17 14:05 EKG Documentation Completion [RC] STAT UA W/MICROSCOPIC [URIN] Stat
[2017-12-05] MEDS ORDERED: Morphine 2 MG/ML Syringe IVPUSH ONE (14:13)
[2017-12-05 14:57] LABS: CHLORIDE,CL 102 mmol/L (98-110); SODIUM,NA 142 mmol/L (136-146)
--- NOTE | 2017-12-05 15:33 | CR ---
Single view chest Clinical history: Chest pain Pericecal: None Findings: There is cardiomegaly with evidence of prior aortic valve placement. There is no acute infi ltrate failure or volume loss. Surgical clips are present in the soft tissues adjacent the right ches t below the axilla Impression: Cardiomegaly with prior aortic valve replacement. No acute cardiac pulmonary disease
--- NOTE | 2017-12-05 15:36 | CT ---
CT brain scan/graft Clinical history: Opioid withdrawal and confusion Comparison: September 25, 2017 CT scan graph findings: The ventricles and sulci are unchanged showing mild prominence with no mass edema hemorrhage or space-occupying abnormality. No acute findings are s een. The bony calvarium is normal and there is normal aeration of the paranasal sinuses and mastoids to the extent covered. There is a tiny mucosal thickening or fluid in the posterior right maxillary s inus Impression: No evidence of acute mass edema hemorrhage or other acute finding
[2017-12-05 16:37] VITALS: BP 144/70
--- NOTE | 2017-12-06 09:01 | CONS ---
DATE OF CONSULTATION: 12/06/2017 DATE OF : 1950 PRIMARY CARE PHYSICIAN: None PCP REASON FOR CONSULTATION: Dizziness. HISTORY: This is a 67-year-old female with history of COPD; hypertension; status post aortic valve replacement, on anticoagulation; mechanical valve; history of MR; history of decompensated systolic heart failure; chronic narcotic usage; persistent atrial fibrillation; who presented to the hospital at this time due to feeling dizzy. She stated that she has not taken narcotics for 3 days and today, she took amiodarone twice, supposed to be one tablet twice a day, but she took 2 tablets. Then, she started feeling dizzy and feeling anxious and that was the reason she came to the hospital. She gets light chest pain once in a while, but she already has an angiogram done last year and it was no significant CAD. She stated that, after starting amiodarone, she started having more energy to do things, but today she took 2 tablets of amiodarone and then she started feeling dizzy. Denied bleeding in her rectum. No hematemesis. No hematuria. No hematochezia. Vital signs when she got into the emergency room was 177/71, heart rate of 66, temperature 36.8, and O2 saturation 98% on room air. Otherwise, she denies nausea, vomiting, sweating, or diarrhea. REVIEW OF SYSTEMS: Seemed to be negative, except as indicated in the HPI. SOCIAL HISTORY: She denies smoking, drug use, or alcoholic consumption. ALLERGIES: No known drug allergies. CURRENT MEDICATIONS: Lisinopril 10 mg twice a day, metoprolol 75 mg t.i.d., and amiodarone 200 mg twice a day now. REVIEW OF SYSTEMS: 12-point review of systems has been negative, except indicated in the HPI. PHYSICAL EXAMINATION: VITAL SIGNS: Blood pressure 177/71, heart rate of 66, temperature 36.8, respirations 18, and O2 saturation 98%. HEENT: No pallor. No jaundice. No JVD. HEART: Normal S1, S2. No murmur. LUNGS: Clear. ABDOMEN: Soft and nontender. Bowel sounds are present. No hepatosplenomegaly. EXTREMITIES: Legs, no edema. IMAGING: EKG shows sinus rhythm, heart rate of 60. ASSESSMENT AND PLAN: This is a 67-year-old female with history of chronic narcotic use, persistent atrial fibrillation, hypertension, status post mechanical aortic valve replacement, and chronic obstructive pulmonary disease. Basically, she is here because of feeling dizzy and possibly narcotic withdrawal, as well as side effects from amiodarone. Recommended her to take amiodarone once a day. She should be given narcotic for her chronic narcotic use, and this will be handled and managed by primary care doctor. LABORATORY DATA: CBC showed WBC 8, hematocrit of 35, and platelets of 356. INR 3.2. Sodium 142, potassium 3.9, chloride 102, bicarb 28, BUN 29, and creatinine 1.2. Troponin was negative. ASSESSMENT AND PLAN: Her labs all look unremarkable. She seemed to be stable from my standpoint. KATELYN IBARRA /[id number]
== END 2017-12-05 16:45 | disposition home or self-care (01) ==
LOC: MW.ED 14:00
DX: R42 Dizziness and giddiness (principal); I11.0 Hypertensive heart disease with heart failure; I50.9 Heart failure, unspecified; Z79.01 Long term (current) use of anticoagulants; Z79.899 Other long term (current) drug therapy; Z87.891 Personal history of nicotine dependence
CPT/HCPCS: 36415; 70450; 71045; 80053; 84484; 85025; 85610; 87804; 93005; 96374; 99285; J2270

== ENCOUNTER 2018-01-08 13:48 | Emergency (ER) | payer MEDICARE, OTHER ==
[2018-01-08 14:15] VITALS: BP 151/82
--- NOTE | 2018-01-08 14:41 | EDM.PDOC ---
ED HPI GENERAL MEDICAL PROBLEM - General Chief Complaint: Lower Extremity Injury/Pain Stated Complaint: RESTLESS LEG SYNDROME Time Seen by Provider: 01/08/18 14:30 Source of Information: Reports: Patient History Limitations: Reports: No Limitations - History of Present Illness INITIAL COMMENTS - FREE TEXT/NARRATIVE: HISTORY AND PHYSICAL: History of present illness: [Patient comes to the emergency room complaining of her restless leg syndrome. She was scheduled to follow-up with her PCP last week but he became ill and is unable to see her until Tuesday. She takes OxyContin prescribed by her PCP for her restless leg syndrome. She ran out of this medication early last week and has been a unable to sleep without it. She requests some tramadol to last her until she can see her PCP in a couple of days. She has no worsening of her symptoms. She has no new complaints or concerns.] Review of systems: As per history of present illness and below otherwise all systems reviewed and negative. Past medical history: As per history of present illness and as reviewed below otherwise noncontributory. Surgical history: As per history of present illness and as reviewed below otherwise noncontributory. Social history: No reported history of drug or alcohol abuse. Family history: As per history of present illness and as reviewed below otherwise noncontributory. Physical exam: Gen.: Well-developed well-nourished female in no acute distress. HEENT: Atraumatic, normocephalic. Mucous membranes are pink and moist. Extremities: Atraumatic in appearance. negative for cords or calf pain. Neurovascular unremarkable. Neuro: Awake, alert, oriented. Motor and sensory unremarkable throughout. Exam nonfocal. Impression: [Medication refill Restless leg syndrome] Plan: [Rx sent to [facility] for tramadol 50mg (#15) si po q 6-8 hours prn pain 0 RF's. She is to follow-up with her PCP this week as scheduled. She is in agreement with today's plan.] Definitive disposition and diagnosis as appropriate pending reevaluation and review of above. Bilateral Leg Pain Score (Numeric/FACES): 8 - Related Data Allergies Allergy/AdvReac Type Severity Reaction Status Date / Time No Known Allergies Allergy Verified 12/05/17 14:12 Home Meds: Home Meds Warfarin [Coumadin] 5 mg PO BEDTIME 11/28/16 [History] DULoxetine HCl [Duloxetine HCl] 60 mg PO BEDTIME 07/18/17 [History] traMADol [Ultram] 50 mg PO Q8H #90 tablet 07/23/17 [Rx] Lisinopril [Prinivil] 30 mg PO BEDTIME 08/22/17 [History] Polyethylene Glycol 3350 [MiraLAX] 17 gm PO DAILY 08/22/17 [History] Spironolactone [Aldactone] 12.5 mg PO DAILY tablet 08/24/17 [Rx] Pantoprazole [ProTONIX] 40 mg PO DAILY 09/24/17 [History] oxyCODONE ER [OxyCONTIN] 20 mg PO Q12HR 11/08/17 [History] Furosemide [Lasix] 80 mg PO DAILY #0 11/14/17 [Rx] Metoprolol Tartrate [Lopressor] 75 mg PO TID tablet 11/14/17 [Rx] Sucralfate [Carafate] 1 gm PO Q6H #28 cup 11/14/17 [Rx] oxyCODONE HCl [Oxycodone HCl] 10 mg PO Q4HR PRN 11/21/17 [History] Furosemide [Lasix] 80 mg PO BID 3 Days #6 tab 11/22/17 [Rx] amLODIPine Besylate [Amlodipine Besylate] 0 mg PO DAILY 12/05/17 [History] Past Medical History HEENT History: Reports: Other (See Below) Other HEENT History: no teeth or dentures Cardiovascular History: Reports: Afib, Heart Failure, Heart Valve Replacement, Hypertension Respiratory History: Reports: COPD Gastrointestinal History: Reports: GERD Other Gastrointestinal History: acid reflux Genitourinary History: Reports: None 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: Musculoskeletal History: Reports: Arthritis, Back Pain, Chronic, Other (See Below) Other Musculoskeletal History: scoliosis, bulging discs, carpal tunnel, restless leg Neurological History: Reports: TIA Psychiatric History: Reports: Anxiety, Depression Endocrine/Metabolic History: Reports: None Hematologic History: Reports: Anticoagulation Therapy Immunologic History: Reports: None Oncologic (Cancer) History: Reports: Breast Other Oncologic History: right breast ca Dermatologic History: Reports: None - Past Surgical History Head Surgeries/Procedures: Reports: None GI Surgical History: Reports: Bariatric Procedure, Cholecystectomy, Other (See Below) Female Surgical History: Reports: Tubal Ligation Musculoskeletal Surgical History: Reports: Carpal Tunnel, Other (See Below) Social & Family History - Family History Family Medical History: Noncontributory - Tobacco Use Smoking Status *Q: Never Smoker Years of Tobacco use: 50 Packs/Tins Daily: 0.5 Used Tobacco, but Quit: Yes Month Tobacco Last Used: July Second Hand Smoke Exposure: No - Caffeine Use Caffeine Use: Reports: Coffee Caffeine Use Comment: 3-4 cups a day - Recreational Drug Use Recreational Drug Use: No - Living Situation & Occupation Living situation: Reports: , with Family Occupation: Retired Review of Systems - Review of Systems Review Of Systems: ROS reveals no pertinent complaints other than HPI. ED EXAM, GENERAL - Physical Exam Exam: See Below Course - Vital Signs Last Recorded V/S: Last Vital Signs Temp 98.0 F 01/08/18 14:13 Pulse 80 01/08/18 14:13 Resp 20 01/08/18 14:13 BP 151/82 H 01/08/18 14:13 Pulse Ox Departure - Departure Time of Disposition: 14:40 Disposition: Home, Self-Care 01 Condition: Good Clinical Impression: Medication refill, Restless leg syndrome - Discharge Information Instructions: Medicine Refill at the Emergency Department Referrals: Jose Jones MD [Primary Care Provider] - Forms: ED Department Discharge Additional Instructions: The following information is given to patients seen in the emergency department who are being discharged to home. This information is to outline your options for follow-up care. We provide all patients seen in our emergency department with a follow-up referral. The need for follow-up, as well as the timing and circumstances, are variable depending upon the specifics of your emergency department visit. If you don't have a primary care physician on staff, we will provide you with a referral. We always advise you to contact your personal physician following an emergency department visit to inform them of the circumstance of the visit and for follow-up with them and/or the need for any referrals to a consulting specialist. The emergency department will also refer you to a specialist when appropriate. This referral assures that you have the opportunity for follow-up care with a specialist. All of these measure are taken in an effort to provide you with optimal care, which includes your follow-up. Under all circumstances we always encourage you to contact your private physician who remains a resource for coordinating your care. When calling for follow-up care, please make the office aware that this follow-up is from your recent emergency room visit. If for any reason you are refused follow-up, please contact the [facility] emergency department at and asked to speak to the emergency department charge nurse. [facility] [address] [place] [id number] Follow-up with Dr. Jones as you have scheduled. Take medications as prescribed. Return to ER as needed as discussed.
== END 2018-01-08 14:56 | disposition home or self-care (01) ==
LOC: MW.ED 13:48
DX: G25.81 Restless legs syndrome (principal); Z76.0 Encounter for issue of repeat prescription; I11.0 Hypertensive heart disease with heart failure; I50.9 Heart failure, unspecified; I48.91 Unspecified atrial fibrillation; J44.9 Chronic obstructive pulmonary disease, unspecified; K21.9 Gastro-esophageal reflux disease without esophagitis; F32.9 Major depressive disorder, single episode, unspecified; Z79.01 Long term (current) use of anticoagulants; Z87.891 Personal history of nicotine dependence; Z79.899 Other long term (current) drug therapy
CPT/HCPCS: 99282

== ENCOUNTER 2018-01-11 22:35 | Observation (INO) | payer MEDICARE, OTHER ==
[2018-01-11] MEDS ORDERED: Albuterol/Ipratropium 3.0-0.5 MG/3 ML Neb Soln NEB ONE (22:49)
[2018-01-11] MEDS ORDERED: Aspirin 81 MG Tab.Chew PO ONE (22:59)
[2018-01-11] MEDS ORDERED: Sodium Chloride 0.9% 2.5 ML Syringe FLUSH PRN (22:59)
[2018-01-11] MEDS ORDERED: Sodium Chloride 0.9% 10 ML Syringe FLUSH PRN (22:59)
[2018-01-11] MEDS ORDERED: Nitroglycerin 2% Oint 1 GM UD Packet TOP ONE (23:04)
--- NOTE | 2018-01-11 23:04 | EDM.PDOC ---
ED HPI GENERAL MEDICAL PROBLEM - General Chief Complaint: Respiratory Problem Stated Complaint: SHORTNESS OF BREATH Time Seen by Provider: 01/11/18 22:53 - History of Present Illness INITIAL COMMENTS - FREE TEXT/NARRATIVE: HISTORY AND PHYSICAL: History of present illness: The patient is a 67-year-old female who is well-known to the ED for frequent visits and has a long-standing history of A. fib with Coumadin use, aortic valve replacement congestive heart failure cardiomyopathy and no follows in our clinic and presents with sudden onset of shortness of breath at 7:30 PM. Patient says earlier today she was feeling fine and had no upper respiratory symptoms no cough no fever no vomiting no chest pain and no shortness of breath. Currently in the ED she feels better on the oxygen but she was 78% on room air. She has no chest pain no abdominal pain and no lower extremity edema. She takes Lasix on a daily basis due to her history of CHF and is compliant with that. She denies that she eat any salty foods. The patient was just seen here couple of days ago for her restless leg syndrome. The patient tells me that she feels like she has an exacerbation of her CHF. Review of systems: As per history of present illness and below otherwise all systems reviewed and negative. Past medical history: As per history of present illness and as reviewed below otherwise noncontributory. Surgical history: As per history of present illness and as reviewed below otherwise noncontributory. Social history: No reported history of drug or alcohol abuse. Family history: As per history of present illness and as reviewed below otherwise noncontributory. Physical exam: Gen.: Well-developed well-nourished female who is nontoxic and speaking with some slight breathlessness at rest but is having minimal work of breathing and O2 sats are 96% on oxygen. Her initial set was as above 78% on room air. HEENT: Atraumatic, normocephalic, pupils reactive, negative for conjunctival pallor or scleral icterus, mucous membranes moist, throat clear, neck supple, nontender, trachea midline. Lungs: Bilateral crackles and coarse breath sounds with no wheezing or stridor and some abdominal work of breathing, breath sounds equal bilaterally, chest nontender. Heart: S1S2, regular rate and slightly irregular rhythm on my evaluation and there is a loud systolic click consistent with her aVR Abdomen: Soft, nondistended, nontender. Negative for masses or hepatosplenomegaly. NABS Pelvis: Stable nontender. Genitourinary: Deferred. Rectal: Deferred. Extremities: Atraumatic, negative for cords or calf pain. Neurovascular unremarkable. No pedal edema or leg asymmetry Neuro: Awake, alert, oriented. Cranial nerves II through XII unremarkable. Cerebellum unremarkable. Motor and sensory unremarkable throughout. Exam nonfocal. Skin: Normal turgor, overall pale appearance and slight diaphoresis is appreciated Diagnostics: EKG chest x-ray CBC CMP INR troponin BNP UA Therapeutics: IV O2 monitor aspirin DuoNeb nitro paste Lasix Patient is feeling much improved and in fact told nursing that she would like to not be admitted and go home. I discussed with both her and her son-in-law in the room that with her initial oxygen saturation in the 70s and her fluid overload that she needed to be in the hospital and she is agreeable. We'll discuss this case with the hospitalist and give a dose of Lasix 0116: Case was discussed with our hospitalist Dr. Quinn would like observation admission and a dose of Lasix 80 mg to be given IV. Impression: Acute dyspnea/pulmonary edema with hypoxia Definitive disposition and diagnosis as appropriate pending reevaluation and review of above. no pain Pain Score (Numeric/FACES): 0 - Related Data Allergies Allergy/AdvReac Type Severity Reaction Status Date / Time No Known Allergies Allergy Verified 01/11/18 22:43 Home Meds: Home Meds Warfarin [Coumadin] 5 mg PO BEDTIME 11/28/16 [History] DULoxetine HCl [Duloxetine HCl] 60 mg PO BEDTIME 07/18/17 [History] traMADol [Ultram] 50 mg PO Q8H #90 tablet 07/23/17 [Rx] Lisinopril [Prinivil] 30 mg PO BEDTIME 08/22/17 [History] Polyethylene Glycol 3350 [MiraLAX] 17 gm PO DAILY 08/22/17 [History] Spironolactone [Aldactone] 12.5 mg PO DAILY tablet 08/24/17 [Rx] Pantoprazole [ProTONIX] 40 mg PO DAILY 09/24/17 [History] oxyCODONE ER [OxyCONTIN] 20 mg PO Q12HR 11/08/17 [History] Furosemide [Lasix] 80 mg PO DAILY #0 01/08/18 [Rx] Metoprolol Tartrate [Lopressor] 75 mg PO TID tablet 11/14/17 [Rx] Sucralfate [Carafate] 1 gm PO Q6H #28 cup 11/14/17 [Rx] oxyCODONE HCl [Oxycodone HCl] 10 mg PO Q4HR PRN 11/21/17 [History] amLODIPine Besylate [Amlodipine Besylate] 0 mg PO DAILY 12/05/17 [History] Past Medical History HEENT History: Reports: Other (See Below) Other HEENT History: no teeth or dentures Cardiovascular History: Reports: Afib, Heart Failure, Heart Valve Replacement, Hypertension Respiratory History: Reports: COPD Gastrointestinal History: Reports: GERD Other Gastrointestinal History: acid reflux Genitourinary 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: Reports: None 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: Musculoskeletal History: Reports: Arthritis, Back Pain, Chronic, Other (See Below) Other Musculoskeletal History: scoliosis, bulging discs, carpal tunnel, restless leg Neurological History: Reports: TIA Psychiatric History: Reports: Anxiety, Depression Endocrine/Metabolic History: Reports: None Hematologic History: Reports: Anticoagulation Therapy Immunologic History: Reports: None Oncologic (Cancer) History: Reports: Breast Other Oncologic History: right breast ca Dermatologic History: Reports: None - Infectious Disease History Infectious Disease History: Reports: None - Past Surgical History Head Surgeries/Procedures: Reports: None GI Surgical History: Reports: Bariatric Procedure, Cholecystectomy, Other (See Below) Female Surgical History: Reports: Tubal Ligation Musculoskeletal Surgical History: Reports: Carpal Tunnel, Other (See Below) Social & Family History - Family History Family Medical History: Noncontributory - Tobacco Use Smoking Status *Q: Current Every Day Smoker Years of Tobacco use: 50 Packs/Tins Daily: 0.2 Used Tobacco, but Quit: Yes Month Tobacco Last Used: July Second Hand Smoke Exposure: No - Caffeine Use Caffeine Use: Reports: Coffee Caffeine Use Comment: 3-4 cups a day - Recreational Drug Use Recreational Drug Use: No - Living Situation & Occupation Living situation: Reports: , with Family Occupation: Retired ED ROS GENERAL - Review of Systems Review Of Systems: ROS reveals no pertinent complaints other than HPI. (See dictation) ED EXAM, GENERAL - Physical Exam Exam: See Below (See dictation) Course - Vital Signs Last Recorded V/S: Last Vital Signs Temp 36.1 C 01/11/18 22:43 Pulse 73 01/11/18 23:45 Resp 20 01/11/18 23:45 BP 158/66 H 01/11/18 23:45 Pulse Ox 99 01/11/18 23:45 - Orders/Labs/Meds Orders: Active Orders 24 hr Category Date Time Status Patient Status [ADT] Stat ADT 01/12/18 01:18 Ordered Cardiac Monitoring [RC] . DIRECTED Care 01/11/18 22:58 Active EKG Documentation Completion [RC] STAT Care 01/11/18 22:49 Active Oxygen Therapy, ED [RC] ASDIRECTED Care 01/11/18 22:58 Active Pulse Oximetry [RC] ASDIRECTED Care 01/11/18 22:58 Active RT Aerosol Therapy [RC] ASDIRECTED Care 01/11/18 22:49 Active Chest 1V Frontal [CR] Stat Exams 01/11/18 22:59 Taken UA W/MICROSCOPIC [URIN] Stat Lab 01/11/18 22:59 Ordered Furosemide [Lasix] Med 01/12/18 01:19 Once 80 mg IVPUSH NOW ONE Sodium Chloride 0.9% [Saline Flush] Med 01/11/18 22:59 Active 10 ml FLUSH ASDIRECTED PRN Sodium Chloride 0.9% [Saline Flush] Med 01/11/18 22:59 Active 2.5 ml FLUSH ASDIRECTED PRN Saline Lock Insert [OM.PC] Stat Oth 01/11/18 22:58 Ordered Medication Orders Sodium Chloride (Saline Flush) 10 ml FLUSH ASDIRECTED PRN PRN Reason: Keep Vein Open Sodium Chloride (Saline Flush) 2.5 ml FLUSH ASDIRECTED PRN PRN Reason: Keep Vein Open Labs: Laboratory Tests 01/11/18 01/11/18 01/11/18 Range/Units 23:06 23:06 23:06 WBC 12.72 H (4.0-11.0) K/uL RBC 4.54 (4.30-5.90) M/uL Hgb 10.9 L (12.0-16.0) g/dL Hct 36.7 (36.0-46.0) % MCV 80.8 (80.0-98.0) fL MCH 24.0 L (27.0-32.0) pg MCHC 29.7 L (31.0-37.0) g/dL RDW Std Deviation 48.6 (28.0-62.0) fl RDW Coeff of Shaun 16 H (11.0-15.0) % Plt Count 323 (150-400) K/uL MPV 9.20 (7.40-12.00) fL Neut % (Auto) 76.5 (48.0-80.0) % Lymph % (Auto) 16.8 (16.0-40.0) % [place] % (Auto) 4.8 (0.0-15.0) % Eos % (Auto) 1.3 (0.0-7.0) % Baso % (Auto) 0.6 (0.0-1.5) % Neut # (Auto) 9.7 H (1.4-5.7) K/uL Lymph # (Auto) 2.1 (0.6-2.4) K/uL [place] # (Auto) 0.6 (0.0-0.8) K/uL Eos # (Auto) 0.2 (0.0-0.7) K/uL Baso # (Auto) 0.1 (0.0-0.1) K/uL Nucleated RBC % 0.0 /100WBC Nucleated RBCs # 0 K/uL INR Sodium 141 (136-145) mmol/L Potassium 3.7 (3.5-5.1) mmol/L Chloride 106 (98-107) mmol/L Carbon Dioxide 26.7 (21.0-32.0) mmol/L BUN 21 H (7.0-18.0) mg/dL Creatinine 0.8 (0.6-1.0) mg/dL Est Cr Clr Drug Dosing 49.01 mL/min Estimated GFR (MDRD) > 60.0 ml/min Glucose 108 H (74-106) mg/dL Calcium 8.6 (8.5-10.1) mg/dL Total Bilirubin 0.3 (0.2-1.0) mg/dL AST 21 (15-37) IU/L ALT 20 (14-63) IU/L Alkaline Phosphatase 95 (46-116) U/L Troponin I < 0.050 (0.000-0.056) ng/mL B-Natriuretic Peptide 2275 H (<100) PG/ML Total Protein 7.1 (6.4-8.2) g/dL Albumin 3.7 (3.4-5.0) g/dL Globulin 3.4 (2.0-3.5) g/dL Albumin/Globulin Ratio 1.1 L (1.3-2.8) 01/11/18 Range/Units 23:06 WBC (4.0-11.0) K/uL RBC (4.30-5.90) M/uL Hgb (12.0-16.0) g/dL Hct (36.0-46.0) % MCV (80.0-98.0) fL MCH (27.0-32.0) pg MCHC (31.0-37.0) g/dL RDW Std Deviation (28.0-62.0) fl RDW Coeff of Shaun (11.0-15.0) % Plt Count (150-400) K/uL MPV (7.40-12.00) fL Neut % (Auto) (48.0-80.0) % Lymph % (Auto) (16.0-40.0) % [place] % (Auto) (0.0-15.0) % Eos % (Auto) (0.0-7.0) % Baso % (Auto) (0.0-1.5) % Neut # (Auto) (1.4-5.7) K/uL Lymph # (Auto) (0.6-2.4) K/uL [place] # (Auto) (0.0-0.8) K/uL Eos # (Auto) (0.0-0.7) K/uL Baso # (Auto) (0.0-0.1) K/uL Nucleated RBC % /100WBC Nucleated RBCs # K/uL INR 2.73 Sodium (136-145) mmol/L Potassium (3.5-5.1) mmol/L Chloride (98-107) mmol/L Carbon Dioxide (21.0-32.0) mmol/L BUN (7.0-18.0) mg/dL Creatinine (0.6-1.0) mg/dL Est Cr Clr Drug Dosing mL/min Estimated GFR (MDRD) ml/min Glucose (74-106) mg/dL Calcium (8.5-10.1) mg/dL Total Bilirubin (0.2-1.0) mg/dL AST (15-37) IU/L ALT (14-63) IU/L Alkaline Phosphatase (46-116) U/L Troponin I (0.000-0.056) ng/mL B-Natriuretic Peptide (<100) PG/ML Total Protein (6.4-8.2) g/dL Albumin (3.4-5.0) g/dL Globulin (2.0-3.5) g/dL Albumin/Globulin Ratio (1.3-2.8) Meds: Medications Generic Name Dose Route Start Last Admin Trade Name Freq PRN Reason Stop Dose Admin Sodium Chloride 10 ml 01/11/18 22:59 Saline Flush FLUSH ASDIRECTED PRN Keep Vein Open Sodium Chloride 2.5 ml 01/11/18 22:59 Saline Flush FLUSH ASDIRECTED PRN Keep Vein Open Discontinued Medications Generic Name Dose Route Start Last Admin Trade Name Freq PRN Reason Stop Dose Admin Albuterol/Ipratropium 3 ml 01/11/18 22:49 01/11/18 23:18 Duoneb 3.0-0.5 Mg/3 Ml NEB 01/11/18 22:50 3 ml ONETIME ONE Administration Aspirin 324 mg 01/11/18 22:59 01/11/18 23:45 Aspirin PO 01/11/18 23:00 Not Given ONETIME ONE Nitroglycerin 0.5 gm 01/11/18 23:04 01/11/18 23:48 Nitro-Bid 2% TOP 01/11/18 23:05 0.5 gm ONETIME ONE Administration Departure - Departure Time of Disposition: 01:20 Disposition: Refer to Observation Condition: Good Clinical Impression: Acute dyspnea Pulmonary edema Qualifiers: Chronicity: acute Qualified Code(s): J81.0 - Acute pulmonary edema - Discharge Information Referrals: Khris Dillard MD [Primary Care Provider] - Forms: ED Department Discharge - My Orders Last 24 Hours: My Active Orders 01/11/18 22:49 EKG Documentation Completion [RC] STAT RT Aerosol Therapy [RC] ASDIRECTED 01/11/18 22:58 Cardiac Monitoring [RC] . DIRECTED Oxygen Therapy, ED [RC] ASDIRECTED Pulse Oximetry [RC] ASDIRECTED Saline Lock Insert [OM.PC] Stat 01/11/18 22:59 Chest 1V Frontal [CR] Stat UA W/MICROSCOPIC [URIN] Stat Sodium Chloride 0.9% [Saline Flush] 10 ml FLUSH ASDIRECTED PRN Sodium Chloride 0.9% [Saline Flush] 2.5 ml FLUSH ASDIRECTED PRN 01/12/18 01:18 Patient Status [ADT] Stat 01/12/18 01:19 Furosemide [Lasix] 80 mg IVPUSH NOW ONE - Assessment/Plan Last 24 Hours: My Active Orders 01/11/18 22:49 EKG Documentation Completion [RC] STAT RT Aerosol Therapy [RC] ASDIRECTED 01/11/18 22:58 Cardiac Monitoring [RC] . DIRECTED Oxygen Therapy, ED [RC] ASDIRECTED Pulse Oximetry [RC] ASDIRECTED Saline Lock Insert [OM.PC] Stat 01/11/18 22:59 Chest 1V Frontal [CR] Stat UA W/MICROSCOPIC [URIN] Stat Sodium Chloride 0.9% [Saline Flush] 10 ml FLUSH ASDIRECTED PRN Sodium Chloride 0.9% [Saline Flush] 2.5 ml FLUSH ASDIRECTED PRN 01/12/18 01:18 Patient Status [ADT] Stat 01/12/18 01:19 Furosemide [Lasix] 80 mg IVPUSH NOW ONE
[2018-01-11 23:38] LABS: CHLORIDE,CL 106 mmol/L (98-107); SODIUM,NA 141 mmol/L (136-145)
[2018-01-12] MEDS ORDERED: Furosemide 40 MG/4 ML VIAL IVPUSH ONE ×2 (01:19→06:00)
[2018-01-12] MEDS: Methadone 10 MG Tab PO SCH ×3 (03:32→21:29)
[2018-01-12 05:41] LABS: CHLORIDE,CL 108 mmol/L (98-107); SODIUM,NA 143 mmol/L (136-145)
--- NOTE | 2018-01-12 08:25 | PCM.HP ---
H&P History of Present Illness - General Date of Service: 01/12/18 Admit Problem/Dx: Admission Diagnosis/Problem Admission Diagnosis/Problem Pulmonary edema - History of Present Illness Initial Comments - Free Text/Narative: This is a 67-year-old female that is being admitted secondary to pulmonary edema with a significant past medical history of congestive heart failure. Patient was recently admitted in November secondary to congestive heart failure at this year. Patient states that she was doing well, saw her primary care physician couple of days ago without any concerns however overnight to the past 24 hours she has been having increased shortness of breath, shortness miss of breath with dyspnea, and believed that she was having worsening of her congestive heart failure. She had taken her medications as prescribed without any resolution and as such she proceeded to come in to have be reassessed. In the ED the patient was found to have an elevated BNP level, have shortness of breath requiring O2 support, and a chest x-ray showing severe congestion. Patient received 80 mEq of Lasix IV and was admitted to the floor. Patient so far has had 1500 mL of fluid output. no pain Pain Score (Numeric/FACES): 7 - Related Data Allergies/Adverse Reactions: Allergies Allergy/AdvReac Type Severity Reaction Status Date / Time No Known Allergies Allergy Verified 01/11/18 22:43 Home Medications: Home Meds Warfarin [Coumadin] 5 mg PO BEDTIME 11/28/16 [History] DULoxetine HCl [Duloxetine HCl] 60 mg PO BEDTIME 07/18/17 [History] Polyethylene Glycol 3350 [MiraLAX] 17 gm PO DAILY 08/22/17 [History] Pantoprazole [ProTONIX] 40 mg PO DAILY 09/24/17 [History] Furosemide [Lasix] 80 mg PO DAILY #0 11/14/17 [Rx] Metoprolol Tartrate [Lopressor] 75 mg PO TID tablet 11/14/17 [Rx] Albuterol [Proair HFA] 2 inhalation PO Q6H PRN 01/12/18 [History] Amiodarone [Cordarone] 200 mg PO DAILY 01/12/18 [History] Cholecalciferol (Vitamin D3) [Vitamin D3] 4,000 units PO DAILY 01/12/18 [History ] Cyclobenzaprine HCl 10 mg PO BEDTIME PRN 01/12/18 [History] Lisinopril 20 mg PO DAILY 01/12/18 [History] Methadone 10 mg PO Q12H 01/12/18 [History] Multivitamin [Daily Multiple Vitamin] 1 dose PO DAILY 01/12/18 [History] Promethazine [Phenergan] 25 mg PO Q6H PRN 01/12/18 [History] Vitamin B Complex & Vit C No.4 [Super B Complex] 300 mg PO BID 01/12/18 [History ] Vitamin E 400 units PO DAILY 01/12/18 [History] atorvaSTATin [Lipitor] 10 mg PO DAILY 01/12/18 [History] traMADol [Ultram] 50 mg PO Q8H PRN 01/12/18 [History] Past Medical History HEENT History: Reports: Impaired Vision, Other (See Below) Other HEENT History: no teeth or dentures Cardiovascular History: Reports: Afib, Heart Failure, Heart Valve Replacement, Hypertension Respiratory History: Reports: COPD, Pneumonia, Recurrent, SOB Gastrointestinal History: Reports: GERD Other Gastrointestinal History: acid reflux Genitourinary History: Reports: 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: Musculoskeletal History: Reports: Arthritis, Back Pain, Chronic, Other (See Below) Other Musculoskeletal History: scoliosis, bulging discs, carpal tunnel, restless leg Neurological History: Reports: TIA Psychiatric History: Reports: Anxiety, Depression Endocrine/Metabolic History: Reports: None Hematologic History: Reports: Anticoagulation Therapy Immunologic History: Reports: None Oncologic (Cancer) History: Reports: Breast Other Oncologic History: right breast ca Dermatologic History: Reports: None - Infectious Disease History Infectious Disease History: Reports: None - Past Surgical History Head Surgeries/Procedures: Reports: None Cardiovascular Surgical History: Reports: Valve Replacement Respiratory Surgical History: Reports: None GI Surgical History: Reports: Appendectomy, Bariatric Procedure, Cholecystectomy , Colonoscopy, Other (See Below) Female Surgical History: Reports: Tubal Ligation, Other (See Below) Other Female Surgeries/Procedures: right breast lumpectomy Endocrine Surgical History: Reports: None Neurological Surgical History: Reports: None Musculoskeletal Surgical History: Reports: Carpal Tunnel, Other (See Below) Oncologic Surgical History: Reports: Lumpectomy Social & Family History - Family History Family Medical History: Noncontributory - Tobacco Use Smoking Status *Q: Current Every Day Smoker Years of Tobacco use: 50 Packs/Tins Daily: 0.2 Used Tobacco, but Quit: Yes Month Tobacco Last Used: July Second Hand Smoke Exposure: Yes - Caffeine Use Caffeine Use: Reports: Coffee Caffeine Use Comment: 3-4 cups a day - Recreational Drug Use Recreational Drug Use: No - Living Situation & Occupation Living situation: Reports: , with Family Occupation: Retired H&P Review of Systems - Review of Systems: Review Of Systems: ROS reveals no pertinent complaints other than HPI. Exam - Exam Exam: See Below - Vital Signs Vital Signs: Last Vital Signs Temp 36.8 C 01/12/18 08:00 Pulse 70 01/12/18 08:00 Resp 20 01/12/18 08:00 BP 140/72 01/12/18 08:00 Pulse Ox 96 01/12/18 08:00 Weight: 73 kg - Exam Quality Assessment: Supplemental Oxygen General: Alert, Oriented, Cooperative Lungs: Normal Respiratory Effort Cardiovascular: Regular Rate, Regular Rhythm GI/Abdominal Exam: Normal Bowel Sounds Extremities: Non-Tender, No Pedal Edema - Patient Data Lab Results Last 24 hrs: Laboratory Results - last 24 hr 01/12/18 01/12/18 01/12/18 Range/Units 04:28 05:00 05:00 WBC 11.37 H (4.0-11.0) K/uL RBC 3.97 L (4.30-5.90) M/uL Hgb 9.5 L (12.0-16.0) g/dL Hct 32.1 L (36.0-46.0) % MCV 80.9 (80.0-98.0) fL MCH 23.9 L (27.0-32.0) pg MCHC 29.6 L (31.0-37.0) g/dL RDW Std Deviation 48.2 (28.0-62.0) fl RDW Coeff of Shaun 16 H (11.0-15.0) % Plt Count 279 (150-400) K/uL MPV 9.30 (7.40-12.00) fL Neut % (Auto) 77.6 (48.0-80.0) % Lymph % (Auto) 16.5 (16.0-40.0) % [place] % (Auto) 5.2 (0.0-15.0) % Eos % (Auto) 0.4 (0.0-7.0) % Baso % (Auto) 0.3 (0.0-1.5) % Neut # (Auto) 8.8 H (1.4-5.7) K/uL Lymph # (Auto) 1.9 (0.6-2.4) K/uL [place] # (Auto) 0.6 (0.0-0.8) K/uL Eos # (Auto) 0.1 (0.0-0.7) K/uL Baso # (Auto) 0.0 (0.0-0.1) K/uL Nucleated RBC % 0.0 /100WBC Nucleated RBCs # 0 K/uL Sodium 143 (136-145) mmol/L Potassium 4.4 (3.5-5.1) mmol/L Chloride 108 H (98-107) mmol/L Carbon Dioxide 28.1 (21.0-32.0) mmol/L BUN 18 (7.0-18.0) mg/dL Creatinine 0.7 (0.6-1.0) mg/dL Est Cr Clr Drug Dosing 56.02 mL/min Estimated GFR (MDRD) > 60.0 ml/min Glucose 106 (74-106) mg/dL Calcium 8.4 L (8.5-10.1) mg/dL Urine Color YELLOW Urine Appearance HAZY Urine pH 5.5 (5.0-8.0) Ur Specific [place] >= 1.030 (1.001-1.035) Urine Protein TRACE (NEGATIVE) mg/dL Urine Glucose (UA) NEGATIVE (NEGATIVE) mg/dL Urine Ketones NEGATIVE (NEGATIVE) mg/dL Urine Occult Blood MODERATE (NEGATIVE) Urine Nitrite NEGATIVE (NEGATIVE) Urine Bilirubin NEGATIVE (NEGATIVE) Urine Urobilinogen 0.2 (<2.0) EU/dL Ur Leukocyte Esterase NEGATIVE (NEGATIVE) Urine RBC 6-8 (0-2/HPF) Urine WBC 1-3 (0-5/HPF) Ur Epithelial Cells FEW (NONE-FEW) Urine Bacteria FEW (NEGATIVE) Result Diagrams: 01/12/18 05:00 01/12/18 05:00 *Q Meaningful Use (ADM) - VTE *Q VTE Criteria *Q: - Stroke *Q Stroke Criteria *Q: - AMI *Q AMI Criteria *Q: Problem List Initiated/Reviewed/Updated: Yes Orders Last 24hrs: Active Orders 24 hr Category Date Time Status Telemetry Monitoring [Cardiac Monitoring] [RC] . Care 01/12/18 01:28 Active DIRECTED 2 Gram Sodium Diet [DIET] Diet 01/12/18 Breakfast Active Methadone Med 01/12/18 03:15 Active 10 mg PO BID Medication Orders Methadone HCl (Methadone) 10 mg PO BID [place] Last Admin: 01/12/18 03:32 Dose: 10 mg Sodium Chloride (Saline Flush) 10 ml FLUSH ASDIRECTED PRN PRN Reason: Keep Vein Open Sodium Chloride (Saline Flush) 2.5 ml FLUSH ASDIRECTED PRN PRN Reason: Keep Vein Open Assessment/Plan Comment:: 67-year-old female being admitted admitted secondary to elevation of BNP, shortness of breath requiring O2 support, chest x-ray indicating pulmonary edema. Patient to be admitted under observation Patient has received 80 mEq of Lasix IV at 6 AM outputting 200 mL fluid. Patient to receive another 40 mEq IV in the p.m. Reassess in the morning to assess fluid status. Patient to start home medications including amiodarone and metoprolol secondary to history of atrial fibrillation. Patient to restart Coumadin. Patient's INR is therapeutic.
[2018-01-12] MEDS: Ondansetron 4 MG/2 ML SDV IVPUSH PRN (10:06)
--- NOTE | 2018-01-12 10:23 | CR ---
EXAM DATE: 01/12/18 PATIENT'S AGE: 67 Patient: REESE SHELDON Facility: [place], [place] Site . Site : [id number] Study: XRay Chest [id number]/7/2018 11:27:10 PM Ordering Physician: Ancelmo Weems Final Report: INDICATION: SOB TECHNIQUE: Chest 1 view COMPARISON: December 05, 2017 FINDINGS: Cardiovascular and mediastinum: Cardiomegaly. Sternotomy changes. Indistinct central vascularity. Lungs and pleural space: No focal consolidation. No sign of pleural effusion. No pneumothorax. Bones and soft tissues: Degenerative changes. IMPRESSION: Pulmonary edema likely secondary to CHF. Dictated by Faisal Bustillo MD @ 01/11/2018 11:30:58 PM Dictated by: Faisal Bustillo MD @ 01/11/2018 23:31:36 (Electronic Signature) Report Signed by Proxy. JEY
[2018-01-12] MEDS ORDERED: Acetaminophen 650 MG in Premix Bag 1 BAG IV PRN (14:23)
[2018-01-12] MEDS: Acetaminophen 325 MG Tab PO PRN ×2 (14:48→19:27)
[2018-01-12] MEDS: atorvaSTATin 10 MG Tab PO SCH (14:48)
[2018-01-12] MEDS: Cholecalciferol (Vitamin D3) 1,000 Unit Tab PO SCH (14:49)
[2018-01-12] MEDS: Pantoprazole 40 MG Tab.CR PO SCH (14:49)
[2018-01-12] MEDS: Amiodarone 200 MG Tab PO SCH (14:50)
[2018-01-12] MEDS: Furosemide 40 MG/4 ML VIAL IVPUSH SCH (17:36)
[2018-01-12] MEDS: Lisinopril 10 MG Tab PO SCH (19:31)
[2018-01-12] MEDS: Metoprolol Tartrate 25 MG Tab PO SCH (20:31)
[2018-01-12] MEDS ORDERED: Warfarin 5 MG Tab PO SCH (21:00)
[2018-01-12] MEDS ORDERED: DULoxetine 60 MG Cap PO SCH (21:00)
[2018-01-12] MEDS ORDERED: Metoprolol Tartrate 25 MG Tab PO SCH (22:00)
[2018-01-12] MEDS ORDERED: traMADol 50 MG Tab PO PRN (22:16)
[2018-01-13] MEDS: Acetaminophen 325 MG Tab PO PRN (04:09)
[2018-01-13] MEDS: Methadone 10 MG Tab PO SCH ×2 (05:51→13:40)
[2018-01-13 06:56] LABS: CHLORIDE,CL 104 mmol/L (98-107); SODIUM,NA 142 mmol/L (136-145)
[2018-01-13] MEDS: Ondansetron 4 MG/2 ML SDV IVPUSH PRN (07:29)
[2018-01-13] MEDS ORDERED: Furosemide 40 MG/4 ML VIAL IVPUSH ONE (08:48)
[2018-01-13] MEDS ORDERED: Amiodarone 200 MG Tab PO SCH ×2 (09:00)
[2018-01-13] MEDS: Amiodarone 200 MG Tab PO SCH (09:23)
[2018-01-13] MEDS: Metoprolol Tartrate 25 MG Tab PO SCH (09:24)
[2018-01-13] MEDS: Cholecalciferol (Vitamin D3) 1,000 Unit Tab PO SCH (09:27)
[2018-01-13] MEDS: Pantoprazole 40 MG Tab.CR PO SCH (09:27)
[2018-01-13] MEDS: Lisinopril 10 MG Tab PO SCH (09:30)
[2018-01-13] MEDS: atorvaSTATin 10 MG Tab PO SCH (09:37)
[2018-01-13] MEDS: Furosemide 40 MG/4 ML VIAL IVPUSH SCH (10:27)
[2018-01-13 16:49] VITALS: BP 161/68
--- NOTE | 2018-01-13 19:12 | PCM.DCSUM1 ---
Discharge Summary - Hospital Course HPI Initial Comments: Discharge Summary Date of admission: 01/12/2018 Date of discharge: 01/13/2018 Admitting diagnosis: #1. Shortness of breath, elevation of BNP, increased oxygen requirement secondary to pulmonary edema #2. Significant past medical history of chronic hospital admissions due to congestive heart failure, patient has atrial fibrillation requiring Coumadin therapy #3. #4. #5. Discharge diagnoses: #1. Pulmonary edema. Congestive heart failure now resolv resolving #2. Significant past medical history of congestive heart failure, atrial fibrillation, anticoagulation Coumadin therapy #3. #4. #5. Consultations: None Procedures: None Hospitalization course: Patient was admitted on 01/12/2018 secondary to shortness of breath, elevation of BNP, increased oxygen requirement with a chest x-ray indicating pulmonary edema. Patient was just recently admitted for acute exacerbation of her chronic heart failure. Patient received a dose of IV Lasix 80 mEq in the ER in the a.m., afterwards in the evening after admission patient was given another 40 mEq IV. Patient was fluid diabetes throughout the night, I curb sided consulted cardiology Dr. Zabala who is the patient's client relationship manager, he stated to continue with current therapy. I had informed Dr. Zabala that the likelihood of her further exacerbation of her pulmonary edema due to congestive heart failure is likely due to poor compliance of her diet and medications. Patient however is adamant that she does take her medications and she does follow a good diet. Dr. Zabala did agree with that assessment and felt that this would be need a proper and close follow-up by her primary care physician in an outpatient setting. Dr. Zabala did however suggest to get a repeat echocardiogram as he wanted to see if there was an acute change as compared to her previous one that was done last month. Echocardiogram did not show any acute difference between the present one and the one done last month. As a result the patient was subsequently discharged back home; for continuation of her home medication to [facility] at home. Disposition on discharge: home Condition on discharge: Stable Discharge medications: Continuation of home medication, patient's son picked up the patient and stated that the patient's methadone that the patient is on was locked in a electronic safe and the battery is and the [place] inside the safe as a result the patient does not have access to her medication until they are able to get the safe looked at. I have decided to give the patient her prescription for methadone up until she sees her primary care physician Dr. Jones. Follow-up instructions: PCP Dr. Jones, cardiology Dr. Zabala. - Discharge Data Discharge Date: 01/13/18 Discharge Disposition: Home, Self-Care 01 Condition: Good - Patient Instructions Diet: Heart Healthy Diet, Low Sodium, Fluid Restriction Activity: Rest and Relax Today Driving: Do Not Drive Showering/Bathing: May Shower Notify Provider of: Fever, Increased Pain, Swelling and Redness, Nausea and/or Vomiting Other/Special Instructions: Take medications as prescribed by providers. Follow -up with scheduled appointments with Dr. Zabala and Dr. Jones. Return to ED if new or worsening symptoms. - Discharge Plan Home Medications: Home Meds Warfarin [Coumadin] 5 mg PO BEDTIME 11/28/16 [History] DULoxetine HCl [Duloxetine HCl] 60 mg PO BEDTIME 07/18/17 [History] Polyethylene Glycol 3350 [MiraLAX] 17 gm PO DAILY 08/22/17 [History] Pantoprazole [ProTONIX] 40 mg PO DAILY 09/24/17 [History] Furosemide [Lasix] 80 mg PO DAILY #0 11/14/17 [Rx] Metoprolol Tartrate [Lopressor] 75 mg PO TID tablet 11/14/17 [Rx] Albuterol [Proair HFA] 2 inhalation PO Q6H PRN 01/12/18 [History] Amiodarone [Cordarone] 200 mg PO DAILY 01/12/18 [History] Cholecalciferol (Vitamin D3) [Vitamin D3] 4,000 units PO DAILY 01/12/18 [History ] Cyclobenzaprine HCl 10 mg PO BEDTIME PRN 01/12/18 [History] Lisinopril 20 mg PO DAILY 01/12/18 [History] Methadone 10 mg PO Q12H 01/12/18 [History] Multivitamin [Daily Multiple Vitamin] 1 dose PO DAILY 01/12/18 [History] Promethazine [Phenergan] 25 mg PO Q6H PRN 01/12/18 [History] Vitamin B Complex & Vit C No.4 [Super B Complex] 300 mg PO BID 01/12/18 [History ] Vitamin E 400 units PO DAILY 01/12/18 [History] atorvaSTATin [Lipitor] 10 mg PO DAILY 01/12/18 [History] traMADol [Ultram] 50 mg PO Q8H PRN 01/12/18 [History] Patient Handouts: Heart Failure, [id number], Pulmonary Edema, [id number] Referrals: Khris Dillard MD [Primary Care Provider] - 01/30/18 8:00 am Jose Jones MD [Family Provider] - 01/24/18 2:30 pm - Discharge Summary/Plan Comment DC Time >30 min.: No - Patient Data Vitals - Most Recent: Last Vital Signs Temp 36.8 C 01/13/18 15:00 Pulse 59 L 01/13/18 15:00 Resp 20 01/13/18 15:00 BP 161/68 H 01/13/18 15:00 Pulse Ox 94 L 01/13/18 15:00 Weight - Most Recent: 70.035 kg I&O - Last 24 hours: Intake & Output 01/13/18 01/13/18 01/13/18 06:59 14:59 22:59 Intake Total 750 Output Total 700 Balance 50 Lab Results - Last 24 hrs: Laboratory Results - last 24 hr 01/13/18 01/13/18 Range/Units 06:30 06:30 WBC 5.52 (4.0-11.0) K/uL RBC 4.39 (4.30-5.90) M/uL Hgb 10.4 L (12.0-16.0) g/dL Hct 35.1 L (36.0-46.0) % MCV 80.0 (80.0-98.0) fL MCH 23.7 L (27.0-32.0) pg MCHC 29.6 L (31.0-37.0) g/dL RDW Std Deviation 47.8 (28.0-62.0) fl RDW Coeff of Shaun 16 H (11.0-15.0) % Plt Count 290 (150-400) K/uL MPV 9.30 (7.40-12.00) fL Neut % (Auto) 45.9 L (48.0-80.0) % Lymph % (Auto) 41.5 H (16.0-40.0) % [place] % (Auto) 8.5 (0.0-15.0) % Eos % (Auto) 3.6 (0.0-7.0) % Baso % (Auto) 0.5 (0.0-1.5) % Neut # (Auto) 2.5 (1.4-5.7) K/uL Lymph # (Auto) 2.3 (0.6-2.4) K/uL [place] # (Auto) 0.5 (0.0-0.8) K/uL Eos # (Auto) 0.2 (0.0-0.7) K/uL Baso # (Auto) 0.0 (0.0-0.1) K/uL Nucleated RBC % 0.0 /100WBC Nucleated RBCs # 0 K/uL Sodium 142 (136-145) mmol/L Potassium 3.9 (3.5-5.1) mmol/L Chloride 104 (98-107) mmol/L Carbon Dioxide 32.9 H (21.0-32.0) mmol/L BUN 20 H (7.0-18.0) mg/dL Creatinine 0.9 (0.6-1.0) mg/dL Est Cr Clr Drug Dosing 43.57 mL/min Estimated GFR (MDRD) > 60.0 ml/min Glucose 87 (74-106) mg/dL Calcium 8.7 (8.5-10.1) mg/dL Total Bilirubin 0.4 (0.2-1.0) mg/dL AST 20 (15-37) IU/L ALT 21 (14-63) IU/L Alkaline Phosphatase 85 (46-116) U/L Total Protein 6.8 (6.4-8.2) g/dL Albumin 3.3 L (3.4-5.0) g/dL Globulin 3.5 (2.0-3.5) g/dL Albumin/Globulin Ratio 0.9 L (1.3-2.8) Med Orders - Current: Current Medications Acetaminophen (Tylenol) 650 mg PO Q4H PRN PRN Reason: PAIN Last Admin: 01/13/18 04:09 Dose: 650 mg Amiodarone HCl (Cordarone) 50 mg PO DAILY [facility] Last Admin: 01/13/18 09:23 Dose: 50 mg Atorvastatin Calcium (Lipitor) 10 mg PO DAILY [facility] Last Admin: 01/13/18 09:37 Dose: Not Given Cholecalciferol (Vitamin D3) 4,000 units PO DAILY [facility] Last Admin: 01/13/18 09:27 Dose: 4,000 units Duloxetine HCl (Cymbalta) 60 mg PO BEDTIME [facility] Last Admin: 01/12/18 20:32 Dose: 60 mg Furosemide (Lasix) 40 mg IVPUSH DAILY [facility] Last Admin: 01/13/18 10:27 Dose: 40 mg Lisinopril (Prinivil) 20 mg PO DAILY [facility] Last Admin: 01/13/18 09:30 Dose: 20 mg Methadone HCl (Methadone) 10 mg PO TID [facility] Last Admin: 01/13/18 13:40 Dose: 10 mg Metoprolol Tartrate (Lopressor) 75 mg PO BID [facility] Last Admin: 01/13/18 09:24 Dose: 75 mg Ondansetron HCl (Zofran) 4 mg IVPUSH Q4H PRN PRN Reason: Nausea/Vomiting Last Admin: 01/13/18 07:29 Dose: 4 mg Pantoprazole Sodium (Protonix) 40 mg PO DAILY [facility] Last Admin: 01/13/18 09:27 Dose: 40 mg Sodium Chloride (Saline Flush) 10 ml FLUSH ASDIRECTED PRN PRN Reason: Keep Vein Open Sodium Chloride (Saline Flush) 2.5 ml FLUSH ASDIRECTED PRN PRN Reason: Keep Vein Open Tramadol HCl (Ultram) 50 mg PO Q8H PRN PRN Reason: Pain Last Admin: 01/13/18 12:14 Dose: 50 mg Warfarin Sodium (Coumadin) 5 mg PO BEDTIME [facility] Last Admin: 01/12/18 20:32 Dose: 5 mg Discontinued Medications Albuterol/Ipratropium (Duoneb 3.0-0.5 Mg/3 Ml) 3 ml NEB ONETIME ONE Stop: 01/11/18 22:50 Last Admin: 01/11/18 23:18 Dose: 3 ml Amiodarone HCl (Cordarone) 200 mg PO DAILY [facility] Amiodarone HCl (Cordarone) 50 mg PO DAILY [facility] Aspirin (Aspirin) 324 mg PO ONETIME ONE Stop: 01/11/18 23:00 Last Admin: 01/11/18 23:45 Dose: Not Given Furosemide (Lasix) 80 mg IVPUSH NOW ONE Stop: 01/12/18 01:20 Last Admin: 01/12/18 01:25 Dose: Not Given Furosemide (Lasix) 80 mg IVPUSH ONETIME ONE Stop: 01/12/18 06:01 Last Admin: 01/12/18 06:02 Dose: 80 mg Furosemide (Lasix) 40 mg IVPUSH NOW ONE Stop: 01/13/18 08:49 Last Admin: 01/13/18 09:47 Dose: 40 mg Methadone HCl (Methadone) 10 mg PO BID [facility] Last Admin: 01/12/18 11:15 Dose: 10 mg Metoprolol Tartrate (Lopressor) 75 mg PO TID [facility] Nitroglycerin (Nitro-Bid 2%) 0.5 gm TOP ONETIME ONE Stop: 01/11/18 23:05 Last Admin: 01/11/18 23:48 Dose: 0.5 gm *Q Meaningful Use (DIS) - VTE *Q VTE Criteria *Q: - Stroke *Q Stroke Criteria *Q: - AMI *Q AMI Criteria *Q:
--- NOTE | 2018-01-17 12:52 | ECHO ---
EXAM DATE: 01/12/18 PATIENT'S AGE: 67 The echocardiogram report can be seen in this patient's EMR (Electronic Medical Record) in the Reports section. The report has also been scanned into PACs. JEY
== END 2018-01-13 18:45 | disposition home or self-care (01) ==
LOC: MW.ED 22:35 → MW.MS 01-12 01:18
PROVIDERS: ADMIT Internal Medicine; ATTEND Internal Medicine
DX: I11.0 Hypertensive heart disease with heart failure (principal); I50.9 Heart failure, unspecified; I48.91 Unspecified atrial fibrillation; J44.9 Chronic obstructive pulmonary disease, unspecified; K21.9 Gastro-esophageal reflux disease without esophagitis; M19.90 Unspecified osteoarthritis, unspecified site; F41.9 Anxiety disorder, unspecified; F32.9 Major depressive disorder, single episode, unspecified; M41.9 Scoliosis, unspecified; F17.210 Nicotine dependence, cigarettes, uncomplicated; Z79.01 Long term (current) use of anticoagulants; Z79.899 Other long term (current) drug therapy; Z95.2 Presence of prosthetic heart valve; Z86.73 Personal history of transient ischemic attack (TIA), and cerebral infarction without residual deficits; Z90.49 Acquired absence of other specified parts of digestive tract; Z98.51 Tubal ligation status; Z85.3 Personal history of malignant neoplasm of breast
CPT/HCPCS: 36415; 71045; 80048; 80053; 81001; 83880; 84484; 85025; 85610; 93005; 93306; 94640; 96374; 96375; 96376; 99285; A9270; G0378; J1940; J2405; 99284

== ENCOUNTER 2018-10-23 03:34 | Emergency (ER) | payer MEDICARE, OTHER ==
[2018-10-23] MEDS ORDERED: Sodium Chloride 0.9% 10 ML Syringe FLUSH PRN (03:40)
[2018-10-23] MEDS ORDERED: Aspirin 300 MG Supp RECTAL ONE (03:40)
[2018-10-23] MEDS ORDERED: Sodium Chloride 0.9% 2.5 ML Syringe FLUSH PRN (03:40)
[2018-10-23] MEDS ORDERED: Sodium Chloride 0.9% 1,000 ML IV SCH (03:45)
--- NOTE | 2018-10-23 03:51 | EDM.PDOC ---
ED HPI GENERAL MEDICAL PROBLEM - General Stated Complaint: AMBULANCE Time Seen by Provider: 10/23/18 03:39 - History of Present Illness INITIAL COMMENTS - FREE TEXT/NARRATIVE: HISTORY AND PHYSICAL: History of present illness: Patient is a 68-year-old female with an extensive cardiac history who presents with chief complaint of chest pain shortness of breath on arrival patient is in severe respiratory distress speaking in short sentences in complaining of chest pain and shortness of breath. Review of systems: As per history of present illness and below otherwise all systems reviewed and negative. Past medical history: As per history of present illness and as reviewed below otherwise noncontributory. Surgical history: As per history of present illness and as reviewed below otherwise noncontributory. Social history: No reported history of drug or alcohol abuse. Family history: As per history of present illness and as reviewed below otherwise noncontributory. Physical exam: HEENT: Atraumatic, normocephalic, pupils reactive, negative for conjunctival pallor or scleral icterus, mucous membranes moist, throat clear, neck supple, nontender, trachea midline. LuCoarse bilaterally with rhonchi and crackles noted breath sounds equal bilaterally, chest nontender. Heart: S1S2, irregularly irregular, negative for clicks, rubs, or JVD. Abdomen: Soft, nondistended, nontender. Negative for masses or hepatosplenomegaly. Negative for costovertebral tenderness. Pelvis: Stable nontender. Genitourinary: Deferred. Rectal: Deferred. Extremities: Atraumatic, negative for cords or calf pain. Neurovascular unremarkable. mottled inferiorly Neuro: Awake, alfollows commands moves all extremities limited grossly nonfocal exam Diagnostics: CBC CMP PT/INR troponin chest x-ray EKG Therapeutics: Patient was intubated via rapid sequence intubation 7.5 ET tube aspirin 300 mg per rectal suppository Impression: #1 acute respiratory distress with impending ventilatory failure #2 atrial fibrillation with rapid ventricular response #3 rule out myocardial infarction Definitive disposition and diagnosis as appropriate pending reevaluation and review of above. - Related Data Allergies Allergy/AdvReac Type Severity Reaction Status Date / Time No Known Allergies Allergy Verified 09/27/18 20:22 Home Meds: Home Meds Warfarin [Coumadin] 4 mg PO DAILY 11/28/16 [History] Polyethylene Glycol 3350 [MiraLAX] 17 gm PO DAILY 08/22/17 [History] Furosemide [Lasix] 80 mg PO DAILY #0 11/14/17 [Rx] Albuterol [Proair HFA] 2 inhalation PO Q6H PRN 01/12/18 [History] Cholecalciferol (Vitamin D3) [Vitamin D3] 1,000 units PO DAILY 01/12/18 [History ] Lisinopril 20 mg PO DAILY 01/12/18 [History] Methadone 10 mg PO Q12H 01/12/18 [History] Multivitamin [Daily Multiple Vitamin] 1 dose PO DAILY 01/12/18 [History] Vitamin B Complex Vit C No.4 [Super B Complex] 5,000 mcg PO BID 01/12/18 [ History] Vitamin E 400 units PO DAILY 01/12/18 [History] Metoprolol Tartrate [Lopressor] 100 mg PO Q12H #30 tablet 09/10/18 [Rx] DULoxetine HCl [Duloxetine HCl] 60 mg PO DAILY 09/29/18 [History] Diltiazem [Cardizem CD] 240 mg PO DAILY #30 cap.cd 09/29/18 [Rx] Omeprazole 40 mg PO DAILY 09/29/18 [History] Amiodarone [Cordarone] 200 mg PO DAILY 10/10/18 [History] DULoxetine [Cymbalta] 60 mg PO DAILY 10/10/18 [History] Fluticasone Propionate [Flovent HFA] 1 puff INH BID 10/10/18 [History] Zolpidem [Ambien] 10 mg PO BEDTIME 10/10/18 [History] rOPINIRole [Requip] 0.25 mg PO TID 10/10/18 [History] Past Medical History HEENT History: Reports: Impaired Vision, Other (See Below) Other HEENT History: no teeth or dentures Cardiovascular History: Reports: Afib, Heart Failure, Heart Valve Replacement, Hypertension Respiratory History: Reports: SOB Gastrointestinal History: Reports: GERD Other Gastrointestinal History: acid reflux Genitourinary History: Reports: None 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: Musculoskeletal History: Reports: Arthritis, Back Pain, Chronic, Other (See Below) Other Musculoskeletal History: scoliosis, bulging discs, carpal tunnel, restless leg Neurological History: Reports: TIA Psychiatric History: Reports: Anxiety, Depression Endocrine/Metabolic History: Reports: None Hematologic History: Reports: Anticoagulation Therapy Immunologic History: Reports: None Oncologic (Cancer) History: Reports: Breast Other Oncologic History: right breast ca Dermatologic History: Reports: None - Infectious Disease History Infectious Disease History: Reports: None - Past Surgical History Head Surgeries/Procedures: Reports: None Cardiovascular Surgical History: Reports: Valve Replacement Respiratory Surgical History: Reports: None GI Surgical History: Reports: Appendectomy, Bariatric Procedure, Cholecystectomy , Colonoscopy, Other (See Below) Female Surgical History: Reports: Tubal Ligation, Other (See Below) Other Female Surgeries/Procedures: right breast lumpectomy Endocrine Surgical History: Reports: None Neurological Surgical History: Reports: None Musculoskeletal Surgical History: Reports: Carpal Tunnel, Other (See Below) Oncologic Surgical History: Reports: Lumpectomy Social & Family History - Family History Family Medical History: Noncontributory - Caffeine Use Caffeine Use: Reports: Coffee Caffeine Use Comment: 3-4 cups a day - Living Situation & Occupation Living situation: Reports: , with Family Occupation: Retired ED ROS GENERAL - Review of Systems Review Of Systems: ROS reveals no pertinent complaints other than HPI. ED EXAM, GENERAL - Physical Exam Exam: See Below (dictation) Course - Orders/Labs/Meds Orders: Active Orders 24 hr Category Date Time Status Cardiac Monitoring [RC] . DIRECTED Care 10/23/18 03:39 Active EKG Documentation Completion [RC] STAT Care 10/23/18 03:39 Active Oxygen Therapy, ED [RC] ASDIRECTED Care 10/23/18 03:39 Active Pulse Oximetry [RC] ASDIRECTED Care 10/23/18 03:39 Active Chest 1V Frontal [CR] Stat Exams 10/23/18 03:40 Ordered BLOOD GAS ARTERIAL [BG] Stat Lab 10/23/18 03:40 Ordered COMPREHENSIVE METABOLIC PN,CMP [CHEM] Stat Lab 10/23/18 03:54 Received HEPATITIS B SURFACE AG [CHEM] Routine Lab 10/23/18 03:53 Ordered HEPATITIS C ANTIBODY [CHEM] Routine Lab 10/23/18 03:53 Ordered HIV12 AG/AB 4TH GEN [CHEM] Routine Lab 10/23/18 03:53 Ordered TROPONIN I [CHEM] Stat Lab 10/23/18 03:54 Received TSH [CHEM] Stat Lab 10/23/18 03:54 Received UA W/MICROSCOPIC [URIN] Stat Lab 10/23/18 03:40 Ordered Sodium Chloride 0.9% [Normal Saline] 1,000 ml Med 10/23/18 03:45 Active IV STAT Sodium Chloride 0.9% [Saline Flush] Med 10/23/18 03:40 Active 10 ml FLUSH ASDIRECTED PRN Sodium Chloride 0.9% [Saline Flush] Med 10/23/18 03:40 Active 2.5 ml FLUSH ASDIRECTED PRN Saline Lock Insert [OM.PC] Stat Oth 10/23/18 03:39 Ordered Medication Orders Sodium Chloride (Normal Saline) 1,000 mls @ 125 mls/hr IV STAT [facility] Sodium Chloride (Saline Flush) 10 ml FLUSH ASDIRECTED PRN PRN Reason: Keep Vein Open Sodium Chloride (Saline Flush) 2.5 ml FLUSH ASDIRECTED PRN PRN Reason: Keep Vein Open Labs: Laboratory Tests 10/23/18 10/23/18 10/23/18 Range/Units 03:54 03:54 03:54 WBC 15.76 H (4.0-11.0) K/uL RBC 4.86 (4.30-5.90) M/uL Hgb 14.4 (12.0-16.0) g/dL Hct 47.4 H (36.0-46.0) % MCV 97.5 (80.0-98.0) fL MCH 29.6 (27.0-32.0) pg MCHC 30.4 L (31.0-37.0) g/dL RDW Std Deviation 49.1 (28.0-62.0) fl RDW Coeff of Shaun 14 (11.0-15.0) % Plt Count 345 (150-400) K/uL MPV 10.40 (7.40-12.00) fL Neut % (Auto) 51.4 (48.0-80.0) % Lymph % (Auto) 42.9 H (16.0-40.0) % [place] % (Auto) 4.1 (0.0-15.0) % Eos % (Auto) 1.3 (0.0-7.0) % Baso % (Auto) 0.3 (0.0-1.5) % Neut # (Auto) 8.1 H (1.4-5.7) K/uL Lymph # (Auto) 6.8 H (0.6-2.4) K/uL [place] # (Auto) 0.6 (0.0-0.8) K/uL Eos # (Auto) 0.2 (0.0-0.7) K/uL Baso # (Auto) 0.0 (0.0-0.1) K/uL Nucleated RBC % 0.0 /100WBC Nucleated RBCs # 0 K/uL INR 4.91 B-Natriuretic Peptide 2333 H (<100) PG/ML Meds: Medications Generic Name Dose Route Start Last Admin Trade Name Freq PRN Reason Stop Dose Admin Sodium Chloride 1,000 mls @ 125 mls/hr 10/23/18 03:45 Normal Saline IV STAT [facility] Sodium Chloride 10 ml 10/23/18 03:40 Saline Flush FLUSH ASDIRECTED PRN Keep Vein Open Sodium Chloride 2.5 ml 10/23/18 03:40 Saline Flush FLUSH ASDIRECTED PRN Keep Vein Open Discontinued Medications Generic Name Dose Route Start Last Admin Trade Name Freq PRN Reason Stop Dose Admin Aspirin 300 mg 10/23/18 03:40 Aspirin RECTAL 10/23/18 03:41 ONETIME ONE Aspirin Confirm 10/23/18 03:55 Aspirin Administered 10/23/18 03:56 Dose 600 mg .ROUTE .STK-MED ONE Departure - Departure Time of Disposition: 04:14 Disposition: DC/Tfer to Acute Hospital 02 Condition: Good Clinical Impression: Acute respiratory failure, Acute coronary syndrome, Atrial fibrillation with rapid ventricular response - Discharge Information Referrals: PCP,None [Primary Care Provider] - - My Orders Last 24 Hours: My Active Orders 10/23/18 03:39 Cardiac Monitoring [RC] . DIRECTED EKG Documentation Completion [RC] STAT Oxygen Therapy, ED [RC] ASDIRECTED Pulse Oximetry [RC] ASDIRECTED Saline Lock Insert [OM.PC] Stat 10/23/18 03:40 Chest 1V Frontal [CR] Stat BLOOD GAS ARTERIAL [BG] Stat UA W/MICROSCOPIC [URIN] Stat Sodium Chloride 0.9% [Saline Flush] 10 ml FLUSH ASDIRECTED PRN Sodium Chloride 0.9% [Saline Flush] 2.5 ml FLUSH ASDIRECTED PRN 10/23/18 03:45 Sodium Chloride 0.9% [Normal Saline] 1,000 ml IV STAT 10/23/18 03:53 HEPATITIS B SURFACE AG [CHEM] Routine HEPATITIS C ANTIBODY [CHEM] Routine HIV12 AG/AB 4TH GEN [CHEM] Routine 10/23/18 03:54 COMPREHENSIVE METABOLIC PN,CMP [CHEM] Stat TROPONIN I [CHEM] Stat TSH [CHEM] Stat - Assessment/Plan Last 24 Hours: My Active Orders 10/23/18 03:39 Cardiac Monitoring [RC] . DIRECTED EKG Documentation Completion [RC] STAT Oxygen Therapy, ED [RC] ASDIRECTED Pulse Oximetry [RC] ASDIRECTED Saline Lock Insert [OM.PC] Stat 10/23/18 03:40 Chest 1V Frontal [CR] Stat BLOOD GAS ARTERIAL [BG] Stat UA W/MICROSCOPIC [URIN] Stat Sodium Chloride 0.9% [Saline Flush] 10 ml FLUSH ASDIRECTED PRN Sodium Chloride 0.9% [Saline Flush] 2.5 ml FLUSH ASDIRECTED PRN 10/23/18 03:45 Sodium Chloride 0.9% [Normal Saline] 1,000 ml IV STAT 10/23/18 03:53 HEPATITIS B SURFACE AG [CHEM] Routine HEPATITIS C ANTIBODY [CHEM] Routine HIV12 AG/AB 4TH GEN [CHEM] Routine 10/23/18 03:54 COMPREHENSIVE METABOLIC PN,CMP [CHEM] Stat TROPONIN I [CHEM] Stat TSH [CHEM] Stat
[2018-10-23] MEDS ORDERED: Aspirin 300 MG Supp ONE (03:55)
[2018-10-23 04:30] LABS: CHLORIDE,CL 100 mmol/L (98-107); SODIUM,NA 143 mmol/L (136-145)
[2018-10-23] MEDS ORDERED: Furosemide 40 MG/4 ML VIAL ONE (04:30)
[2018-10-23] MEDS ORDERED: Furosemide 40 MG/4 ML VIAL IVPUSH ONE (04:31)
[2018-10-23 04:40] VITALS: BP 208/189
[2018-10-23] MEDS ORDERED: Etomidate 2 MG/ML 20 ML SDV IVPUSH ONE (05:23)
[2018-10-23] MEDS ORDERED: Propofol 200 MG/20 ML SDV IVPUSH ONE (05:23)
[2018-10-23] MEDS ORDERED: Rocuronium 50 MG/5 ML Vial IVPUSH ONE (05:23)
[2018-10-23] MEDS ORDERED: Succinylcholine 200 MG/10 ML MDV IV SCH (05:30)
[2018-10-23] MEDS ORDERED: Succinylcholine 200 MG/10 ML MDV IV ONE (05:40)
--- NOTE | 2018-10-23 15:38 | CR ---
EXAM DATE: 10/23/18 PATIENT'S AGE: 68 Patient: REESE SHELDON Facility: [place], [place] Site . Site : [id number] Study: XRay Chest -10/23/2018 4:22:41 AM Ordering Physician: Doctor Bermudez Final Report: INDICATION: Difficulty in breathing, post intubation TECHNIQUE: Chest radiograph 1 view COMPARISON: 10/09/2018 FINDINGS: Mediastinum: Mild cardiomegaly is noted without interval change. Previous median sternotomy and aortic valve replacement noted. The endotracheal tube tip is positioned 4.8 cm from the jared. Lung: Mild perihilar edema is present and increased compared to prior exam. No pneumothorax is identified. Musculoskeletal: Unremarkable for age. IMPRESSION: 1. Mild perihilar edema is present and increased compared to prior exam. Dictated by Andrew Jc MD @ 10/23/2018 4:26:26 AM Dictated by: Andrew Jc MD @ 10/23/2018 04:26:32 ----- ADDENDUM ----- Addendum report: I was asked to comment on the placement of nasogastric tube on this chest radiograph. Nasogastric tube identified appears to be within the stomach. Because of the technique, it is rather difficult to see the tube adequately. I would suggest obtaining a portable KUB for further assessment. IMPRESSION: Nasogastric tube appears to be within the stomach; because of the technique, I would suggest obtaining a portable KUB for further confirmation. Dictated by Good Mayfield MD @ Oct 23 2018 6:42AM (Electronic Signature) Report Signed by Proxy. JEY
== END 2018-10-23 04:55 ==
LOC: MW.ED 03:34
DX: I24.9 Acute ischemic heart disease, unspecified (principal); J96.00 Acute respiratory failure, unspecified whether with hypoxia or hypercapnia; I48.91 Unspecified atrial fibrillation; I11.0 Hypertensive heart disease with heart failure; I50.9 Heart failure, unspecified; F41.9 Anxiety disorder, unspecified; K21.9 Gastro-esophageal reflux disease without esophagitis; F32.9 Major depressive disorder, single episode, unspecified; Z79.01 Long term (current) use of anticoagulants; Z79.899 Other long term (current) drug therapy; Z86.73 Personal history of transient ischemic attack (TIA), and cerebral infarction without residual deficits; Z95.5 Presence of coronary angioplasty implant and graft
CPT/HCPCS: 31500; 36415; 51702; 71045; 80053; 81001; 83880; 84443; 84484; 85025; 85610; 86803; 87340; 87389; 93005; 96361; 96374; 96375; 99291; 99292; A9270; J0330; J1940; J2704; J3490; J7040; 43753; 99285

== ENCOUNTER 2019-07-02 10:02 | Emergency (ER) | payer MEDICARE, OTHER ==
[2019-07-02 10:14] VITALS: BP 143/51
--- NOTE | 2019-07-02 10:16 | EDM.PDOC ---
ED HPI GENERAL MEDICAL PROBLEM - General Chief Complaint: Lower Extremity Injury/Pain Stated Complaint: AMB Time Seen by Provider: 07/02/19 10:15 Source of Information: Reports: Patient History Limitations: Reports: No Limitations - History of Present Illness INITIAL COMMENTS - FREE TEXT/NARRATIVE: HISTORY AND PHYSICAL: History of present illness: Patient is a 68-year-old female presents to the ED via EMS for right leg pain. She states it has been hurting for 4 days. She denies injury. States she walks with a cane and it hurts to put full weight on it. She lives with family and has been getting around fine at home. She recently was diagnosed with an umbilical hernia, was told she would have pain if her hernia was bothering her. She denies abdominal pain, nausea, vomiting, diarrhea, fevers, chills. Patient saw Dr. Friedman, electronics installer 06/28/19, was having RLQ pain and had a CT abdomen/pelvis. There were no signs of acute fracture seen on CT scan. Review of systems: As per history of present illness and below otherwise all systems reviewed and negative. Past medical history: As per history of present illness and as reviewed below otherwise noncontributory. Surgical history: As per history of present illness and as reviewed below otherwise noncontributory. Social history: No reported history of drug or alcohol abuse. Family history: As per history of present illness and as reviewed below otherwise noncontributory. Physical exam: General: Patient sitting comfortably in no acute distress and nontoxic appearing HEENT: Atraumatic, normocephalic, pupils reactive, negative for conjunctival pallor or scleral icterus, mucous membranes moist, throat clear, neck supple, nontender, trachea midline. No meningeal signs. Lungs: Clear to auscultation, breath sounds equal bilaterally, chest nontender. Heart: S1S2, regular, negative for clicks, rubs, or overt murmur. Abdomen: Soft, nondistended, nontender. No periumbilical tenderness, umbilical hernia easily reducible. Negative for masses or hepatosplenomegaly. Negative for costovertebral tenderness. No rigidity, rebound, guarding. Pelvis: Stable nontender. Genitourinary: Deferred. Rectal: Deferred. Extremities: Pain with external rotation and flexion at the right hip. No knee pain. Atraumatic, negative for cords or calf pain. Neurovascular unremarkable. Neuro: Awake, alert, oriented. Cranial nerves II through XII unremarkable. Cerebellum unremarkable. Motor and sensory unremarkable throughout. Exam nonfocal. Notes: Discussed with Dr. Doss, orthopedist at [facility], he advised patient have a CT scan done. If no sacral fracture patient may weight bear as tolerated, if there is a sacral fracture then patient should toe touch. He advised that patient follows up with him in my not this week. No sacral fracture identified on CT. Patient was offered admission for observation and PT/OT which she declined. Diagnostics: x-ray right hip, CBC, CMP Therapeutics: 2mg Morphine IV Prescriptions: Impression: Acute Inferior and superior pubic rami fractures Plan: Weight bearing as tolerate. Follow up with orthopedics. Dr. Doss at [facility] is aware of the case and will follow up with you this week, please call the number provided to schedule an appointment. Return to ED as needed as discussed Definitive disposition and diagnosis as appropriate pending reevaluation and review of above. right leg Pain Score (Numeric/FACES): 8 - Related Data Allergies Allergy/AdvReac Type Severity Reaction Status Date / Time No Known Allergies Allergy Verified 07/02/19 10:07 Home Meds: Home Meds Albuterol [Proair HFA] 2 inhalation PO Q4H PRN 01/12/18 [History] Methadone 10 mg PO DAILY 01/12/18 [History] Diltiazem [Cardizem CD] 240 mg PO DAILY #30 cap.cd 09/29/18 [Rx] Omeprazole 40 mg PO DAILY 09/29/18 [History] DULoxetine [Cymbalta] 60 mg PO DAILY 10/10/18 [History] Acetaminophen 650 mg PO Q6H PRN 11/08/18 [History] Carvedilol 12.5 mg PO BIDMEALS 11/08/18 [History] Digoxin [Lanoxin] 62.5 mcg PO DAILY 11/08/18 [History] Ipratropium/Albuterol Sulfate [Iprat-Albut 0.5-3(2.5) MG/3 ML] 3 ml INH QID PRN 11/08/18 [History] Levothyroxine 25 mcg PO ACBREAKFAST 11/08/18 [History] Lisinopril 2.5 mg PO BID 11/08/18 [History] Multivitamin with Iron [Multivitamins with Iron] 1 tab PO DAILY 11/08/18 [ History] Warfarin [Coumadin] 3 mg PO MOWEFR@1400 11/08/18 [History] Warfarin [Coumadin] 4 mg PO SUTUTHSA@1400 11/08/18 [History] Past Medical History HEENT History: Reports: Impaired Vision, Other (See Below) Other HEENT History: no teeth or dentures Cardiovascular History: Reports: Afib, Heart Failure, Heart Valve Replacement, Hypertension Other Cardiovascular History: mitral valve regurgitation Respiratory History: Reports: SOB Gastrointestinal History: Reports: GERD Other Gastrointestinal History: acid reflux Genitourinary History: Reports: None [employer] History: Reports: Musculoskeletal History: Reports: Arthritis, Back Pain, Chronic, Other (See Below) Other Musculoskeletal History: scoliosis, bulging discs, carpal tunnel, restless leg Neurological History: Reports: TIA Psychiatric History: Reports: Anxiety, Depression Endocrine/Metabolic History: Reports: None Hematologic History: Reports: Anticoagulation Therapy Immunologic History: Reports: None Oncologic (Cancer) History: Reports: Breast Other Oncologic History: right breast ca Dermatologic History: Reports: None - Infectious Disease History Infectious Disease History: Reports: None - Past Surgical History Head Surgeries/Procedures: Reports: None HEENT Surgical History: Reports: None Cardiovascular Surgical History: Reports: Valve Replacement Respiratory Surgical History: Reports: None GI Surgical History: Reports: Appendectomy, Bariatric Procedure, Cholecystectomy , Colonoscopy, Other (See Below) Female Surgical History: Reports: Tubal Ligation, Other (See Below) Other Female Surgeries/Procedures: right breast lumpectomy Endocrine Surgical History: Reports: None Neurological Surgical History: Reports: None Musculoskeletal Surgical History: Reports: Carpal Tunnel, Other (See Below) Oncologic Surgical History: Reports: Lumpectomy Dermatological Surgical History: Reports: None Social & Family History - Family History Family Medical History: Noncontributory - Tobacco Use Smoking Status *Q: Current Every Day Smoker Years of Tobacco use: 49 Packs/Tins Daily: 0.5 - Caffeine Use Caffeine Use: Reports: Coffee Caffeine Use Comment: 3-4 cups a day - Recreational Drug Use Recreational Drug Use: No - Living Situation & Occupation Living situation: Reports: , with Family Occupation: Retired Review of Systems - Review of Systems Review Of Systems: ROS reveals no pertinent complaints other than HPI. ED EXAM, GENERAL - Physical Exam Exam: See Below (see dictation) Course - Vital Signs Last Recorded V/S: Last Vital Signs Temp 96.5 F 07/02/19 10:07 Pulse 66 07/02/19 10:07 Resp 18 07/02/19 10:07 BP 143/51 H 07/02/19 10:07 Pulse Ox 95 07/02/19 10:07 - Orders/Labs/Meds Labs: Laboratory Tests 07/02/19 07/02/19 Range/Units 10:54 10:54 WBC 8.22 (4.0-11.0) K/uL RBC 4.29 L (4.30-5.90) M/uL Hgb 12.3 (12.0-16.0) g/dL Hct 39.1 (36.0-46.0) % MCV 91.1 (80.0-98.0) fL MCH 28.7 (27.0-32.0) pg MCHC 31.5 (31.0-37.0) g/dL RDW Std Deviation 44.9 (28.0-62.0) fl RDW Coeff of Shaun 14 (11.0-15.0) % Plt Count 233 (150-400) K/uL MPV 9.80 (7.40-12.00) fL Neut % (Auto) 65.5 (48.0-80.0) % Lymph % (Auto) 23.2 (16.0-40.0) % [place] % (Auto) 8.5 (0.0-15.0) % Eos % (Auto) 2.4 (0.0-7.0) % Baso % (Auto) 0.4 (0.0-1.5) % Neut # (Auto) 5.4 (1.4-5.7) K/uL Lymph # (Auto) 1.9 (0.6-2.4) K/uL [place] # (Auto) 0.7 (0.0-0.8) K/uL Eos # (Auto) 0.2 (0.0-0.7) K/uL Baso # (Auto) 0.0 (0.0-0.1) K/uL Nucleated RBC % 0.0 /100WBC Nucleated RBCs # 0 K/uL Sodium 138 (136-145) mmol/L Potassium 5.0 (3.5-5.1) mmol/L Chloride 102 (98-107) mmol/L Carbon Dioxide 27.9 (21.0-32.0) mmol/L BUN 21 H (7.0-18.0) mg/dL Creatinine 1.1 H (0.6-1.0) mg/dL Est Cr Clr Drug Dosing 35.16 mL/min Estimated GFR (MDRD) 49.4 ml/min Glucose 99 (74-106) mg/dL Calcium 9.4 (8.5-10.1) mg/dL Total Bilirubin 0.3 (0.2-1.0) mg/dL AST 16 (15-37) IU/L ALT 15 (14-63) IU/L Alkaline Phosphatase 110 (46-116) U/L Total Protein 6.8 (6.4-8.2) g/dL Albumin 3.3 L (3.4-5.0) g/dL Globulin 3.5 (2.6-4.0) g/dL Albumin/Globulin Ratio 0.9 (0.9-1.6) Meds: Medications Discontinued Medications Generic Name Dose Route Start Last Admin Trade Name Freq PRN Reason Stop Dose Admin Sodium Chloride 1,000 mls @ 999 mls/hr 07/02/19 12:05 07/02/19 12:15 Normal Saline IV 07/02/19 13:05 999 mls/hr STAT ONE Administration Morphine Sulfate 2 mg 07/02/19 12:05 07/02/19 12:14 Morphine IVPUSH 07/02/19 12:06 2 mg ONETIME ONE Administration Departure - Departure Time of Disposition: 13:50 Disposition: Home, Self-Care 01 Condition: Good Clinical Impression: Fracture of pubic ramus - Discharge Information Referrals: PCP,Unknown [Primary Care Provider] - Forms: ED Department Discharge Additional Instructions: The following information is given to patients seen in the emergency department who are being discharged to home. This information is to outline your options for follow-up care. We provide all patients seen in our emergency department with a follow-up referral. The need for follow-up, as well as the timing and circumstances, are variable depending upon the specifics of your emergency department visit. If you don't have a primary care physician on staff, we will provide you with a referral. We always advise you to contact your personal physician following an emergency department visit to inform them of the circumstance of the visit and for follow-up with them and/or the need for any referrals to a consulting specialist. The emergency department will also refer you to a specialist when appropriate. This referral assures that you have the opportunity for follow-up care with a specialist. All of these measure are taken in an effort to provide you with optimal care, which includes your follow-up. Under all circumstances we always encourage you to contact your private physician who remains a resource for coordinating your care. When calling for follow-up care, please make the office aware that this follow-up is from your recent emergency room visit. If for any reason you are refused follow-up, please contact the [facility] Emergency Department at and asked to speak to the emergency department charge nurse. [facility] Primary Care [address] [place] [id number] [facility] [address] [place] [id number] Weight bearing as tolerate. Follow up with orthopedics. Dr. Doss at [facility] is aware of the case and will follow up with you this week, please call the number provided to schedule an appointment. Return to ED as needed as discussed
--- NOTE | 2019-07-02 11:15 | CR ---
INDICATION: Pain. TECHNIQUE: AP view of the pelvis as well as AP and lateral projections of the right hip. COMPARISON: Abdomen/pelvis CT of 06/28/2019 and pelvis x-ray of 09/25/2017. FINDINGS: Acute near-anatomically aligned fractures of the right superior ischial pubic ring and the inferior ischiopubic ring near the pubic symphysis. These fractures were not evident on the recent CT. No other fracture. No diastasis. Mild osteoarthritis of both hips and at least mild osteoarthritis at the sacroiliac joints. Advanced osteoarthritis at the symphysis pubis. IMPRESSION: Acute near-anatomically aligned fractures of the right ischiopubic ring. Dictated by Ector Ferrell MD @ Jul 02 2019 11:05AM Signed by Dr. Ector Ferrell @ Jul 02 2019 11:13AM
[2019-07-02] MEDS ORDERED: Sodium Chloride 0.9% 1,000 ML IV ONE (12:05)
[2019-07-02] MEDS ORDERED: Morphine 2 MG/ML Syringe IVPUSH ONE (12:05)
--- NOTE | 2019-07-02 13:34 | CT ---
HISTORY: Pain. Pubic ramus fractures. Evaluate for sacral fracture. TECHNIQUE: Noncontrast CT of the pelvis. COMPARISON: Radiographs 07/02/2019. CT 06/28/2019. FINDINGS: There is an acute fracture of the right superior pubic ramus which demonstrates approximately 3 mm of displacement. Acute fracture of the right inferior pubic ramus anteriorly. This is superimposed on a more remote mid right inferior pubic ramus healed fracture. There is no right acetabular or right proximal femoral fracture. Left-sided pubic rami are intact. No left acetabular or proximal femoral fracture. No acute sacral fracture. - Note that there is a transitional lumbosacral segment. Degenerative disc and facet joint disease within the lumbar spine. Degenerative changes of the sacroiliac joints and pubic symphysis. There is chondrocalcinosis about the pubic symphysis. - Mild hip joint degenerative changes. - There is no localized fluid collection. Small amount of strandy hemorrhage is present adjacent to the right superior pubic ramus fracture. Small fat containing umbilical hernia. Vascular calcifications. IMPRESSION: 1. Acute fracture of the lateral aspect of the right superior pubic ramus with 3 mm displacement. Small amount of strandy adjacent hemorrhage. 2. Acute nondisplaced fracture of the right inferior pubic ramus anteriorly. This is superimposed on a more remote healed fracture. 3. The sacrum is intact. 4. No acetabular or proximal femoral fracture. 5. Degenerative changes. Dictated by Catracho Yee MD @ 07/02/2019 1:34:21 PM Please note that all CT scans at this facility use dose modulation, iterative reconstruction, and/or weight-based dosing when appropriate to reduce radiation dose to as low as reasonably achievable. Dictated by: Catracho Yee MD @ 07/02/2019 13:34:26 (Electronically Signed)
== END 2019-07-02 14:40 | disposition home or self-care (01) ==
LOC: MW.ED 10:02
DX: S32.810A Multiple fractures of pelvis with stable disruption of pelvic ring, initial encounter for closed fracture (principal); I11.0 Hypertensive heart disease with heart failure; I50.9 Heart failure, unspecified; K21.9 Gastro-esophageal reflux disease without esophagitis; I48.91 Unspecified atrial fibrillation; M19.90 Unspecified osteoarthritis, unspecified site; F41.9 Anxiety disorder, unspecified; F32.9 Major depressive disorder, single episode, unspecified; F17.210 Nicotine dependence, cigarettes, uncomplicated; Z79.01 Long term (current) use of anticoagulants; Z79.899 Other long term (current) drug therapy; X58.XXXA Exposure to other specified factors, initial encounter
CPT/HCPCS: 36415; 72192; 73502; 80053; 85025; 96361; 96374; 99284; J2270; J7040

== ENCOUNTER 2019-07-04 14:13 | Inpatient (IN) | payer MEDICARE, OTHER ==
--- NOTE | 2019-07-04 14:33 | EDM.PDOC ---
ED HPI GENERAL MEDICAL PROBLEM - General Chief Complaint: Lower Extremity Injury/Pain Stated Complaint: PELVIC FRACTURE Time Seen by Provider: 07/04/19 14:32 Source of Information: Reports: Patient History Limitations: Reports: No Limitations - History of Present Illness INITIAL COMMENTS - FREE TEXT/NARRATIVE: HISTORY AND PHYSICAL: History of present illness: Patient is a 68-year-old female presents to the ED via EMS. Patient was seen 2 days ago for right leg pain. Found to have inferior and superior pubic rami fractures without known injury. Patient was discharged home per her request, returns today due to increased pain and inability to get around. Patient states she is unable to get up and down the stairs at her house. She denies new injury and has no other complaints at this time. Review of systems: As per history of present illness and below otherwise all systems reviewed and negative. Past medical history: As per history of present illness and as reviewed below otherwise noncontributory. Surgical history: As per history of present illness and as reviewed below otherwise noncontributory. Social history: No reported history of drug or alcohol abuse. Family history: As per history of present illness and as reviewed below otherwise noncontributory. Physical exam: General: Patient sitting comfortably in no acute distress and nontoxic appearing HEENT: Atraumatic, normocephalic, pupils reactive, negative for conjunctival pallor or scleral icterus, mucous membranes moist, throat clear, neck supple, nontender, trachea midline. No meningeal signs. Lungs: Clear to auscultation, breath sounds equal bilaterally, chest nontender. Heart: S1S2, regular, negative for clicks, rubs, or overt murmur. Abdomen: Soft, nondistended, nontender. Negative for masses or hepatosplenomegaly. Negative for costovertebral tenderness. No rigidity, rebound , guarding. Pelvis: Stable nontender. Genitourinary: Deferred. Rectal: Deferred. Extremities: Atraumatic, negative for cords or calf pain. Neurovascular unremarkable. Neuro: Awake, alert, oriented. Cranial nerves II through XII unremarkable. Cerebellum unremarkable. Motor and sensory unremarkable throughout. Exam nonfocal. Notes: Diagnostics: none Therapeutics: none Prescriptions: Impression: Ambulatory dysfunction, pelvic fracture Plan: Discussed with Dr. Joy, patient will be admitted to inpatient to be evaluated for need for fdc care/PT/OT. Definitive disposition and diagnosis as appropriate pending reevaluation and review of above. Right Hip Pain Score (Numeric/FACES): 9 - Related Data Allergies Allergy/AdvReac Type Severity Reaction Status Date / Time No Known Allergies Allergy Verified 07/04/19 14:16 Home Meds: Home Meds Albuterol [Proair HFA] 2 inhalation PO Q4H PRN 01/12/18 [History] Methadone 10 mg PO DAILY 01/12/18 [History] Diltiazem [Cardizem CD] 240 mg PO DAILY #30 cap.cd 09/29/18 [Rx] Omeprazole 40 mg PO DAILY 09/29/18 [History] DULoxetine [Cymbalta] 60 mg PO DAILY 10/10/18 [History] Acetaminophen 650 mg PO Q6H PRN 11/08/18 [History] Carvedilol 12.5 mg PO BIDMEALS 11/08/18 [History] Digoxin [Lanoxin] 62.5 mcg PO DAILY 11/08/18 [History] Ipratropium/Albuterol Sulfate [Iprat-Albut 0.5-3(2.5) MG/3 ML] 3 ml INH QID PRN 11/08/18 [History] Levothyroxine 25 mcg PO ACBREAKFAST 11/08/18 [History] Lisinopril 2.5 mg PO BID 11/08/18 [History] Multivitamin with Iron [Multivitamins with Iron] 1 tab PO DAILY 11/08/18 [ History] Warfarin [Coumadin] 3 mg PO MOWEFR@1400 11/08/18 [History] Warfarin [Coumadin] 4 mg PO SUTUTHSA@1400 11/08/18 [History] Past Medical History HEENT History: Reports: Impaired Vision, Other (See Below) Other HEENT History: no teeth or dentures Cardiovascular History: Reports: Afib, Heart Failure, Heart Valve Replacement, Hypertension Other Cardiovascular History: mitral valve regurgitation Respiratory History: Reports: SOB Gastrointestinal History: Reports: GERD Other Gastrointestinal History: acid reflux Genitourinary History: Reports: None MEDICATION ASSISTANT History: Reports: Musculoskeletal History: Reports: Arthritis, Back Pain, Chronic, Other (See Below) Other Musculoskeletal History: scoliosis, bulging discs, carpal tunnel, restless leg Neurological History: Reports: TIA Psychiatric History: Reports: Anxiety, Depression Endocrine/Metabolic History: Reports: None Hematologic History: Reports: Anticoagulation Therapy Immunologic History: Reports: None Oncologic (Cancer) History: Reports: Breast Other Oncologic History: right breast ca Dermatologic History: Reports: None - Infectious Disease History Infectious Disease History: Reports: None - Past Surgical History Head Surgeries/Procedures: Reports: None HEENT Surgical History: Reports: None Cardiovascular Surgical History: Reports: Valve Replacement Respiratory Surgical History: Reports: None GI Surgical History: Reports: Appendectomy, Bariatric Procedure, Cholecystectomy , Colonoscopy, Other (See Below) Female Surgical History: Reports: Tubal Ligation, Other (See Below) Other Female Surgeries/Procedures: right breast lumpectomy Endocrine Surgical History: Reports: None Neurological Surgical History: Reports: None Musculoskeletal Surgical History: Reports: Carpal Tunnel, Other (See Below) Oncologic Surgical History: Reports: Lumpectomy Dermatological Surgical History: Reports: None Social & Family History - Family History Family Medical History: Noncontributory - Tobacco Use Smoking Status *Q: Light Tobacco Smoker Years of Tobacco use: 50 Packs/Tins Daily: 0.2 - Caffeine Use Caffeine Use: Reports: Coffee, Tea Caffeine Use Comment: 3-4 cups a day - Recreational Drug Use Recreational Drug Use: No - Living Situation & Occupation Living situation: Reports: , with Family Occupation: Retired Review of Systems - Review of Systems Review Of Systems: ROS reveals no pertinent complaints other than HPI. ED EXAM, GENERAL - Physical Exam Exam: See Below (see dictation) Course - Vital Signs Last Recorded V/S: Last Vital Signs Temp 97.6 F 07/04/19 14:15 Pulse 78 07/04/19 14:15 Resp 18 07/04/19 14:15 BP 131/70 07/04/19 14:15 Pulse Ox 96 07/04/19 14:15 - Orders/Labs/Meds Orders: Active Orders 24 hr Category Date Time Status Admission Status [Patient Status] [ADT] Stat ADT 07/04/19 15:04 Ordered Departure - Departure Time of Disposition: 15:02 Disposition: Admitted As Inpatient 66 Condition: Good Clinical Impression: Ambulatory dysfunction, Pelvic fracture - Discharge Information Referrals: PCP,None [Primary Care Provider] - Forms: ED Department Discharge - My Orders Last 24 Hours: My Active Orders 07/04/19 15:04 Admission Status [Patient Status] [ADT] Stat - Assessment/Plan Last 24 Hours: My Active Orders 07/04/19 15:04 Admission Status [Patient Status] [ADT] Stat
--- NOTE | 2019-07-04 15:19 | PCM.HP.2 ---
H&P History of Present Illness - General Date of Service: 07/04/19 Admit Problem/Dx: Admission Diagnosis/Problem Admission Diagnosis/Problem Ambulatory dysfunction - History of Present Illness Initial Comments - Free Text/Narative: The patient is a 68-year-old female who presented to the ER on 07/02/19 for right -sided leg pain. She was found to have an inferior and superior pubic rami fracture on CT. She denied any trauma/injury and has no idea how she would've fractured her pelvis. At that time, the ER did speak to ortho in [place] and they recommended outpatient follow-up. At that time, the patient declined admission for observation here in [place]. She went home, was doing okay, but then woke up this morning was unable to move her right leg or walk. She denies any new injury, trauma or reason for the acute change. She reports at rest, her pain is 4 out of 10, but with any kind of movement, it is a 10 out of 10. The patient doesn't believe she'll be able to take care of herself at home due to this injury. She is open to going to a rehabilitation facility for treatment. She is on methadone for chronic pain management. She also has a past medical history of A. fib, heart failure, aortic valve replacement, hypertension, and TIA. She denies any fever, chills, chest pain, shortness of breath, abdominal pain, nausea, vomiting, constipation, diarrhea, trouble urinating. Right Hip Pain Score (Numeric/FACES): 9 - Related Data Allergies/Adverse Reactions: Allergies Allergy/AdvReac Type Severity Reaction Status Date / Time No Known Allergies Allergy Verified 07/04/19 14:16 Home Medications: Home Meds Albuterol [Proair HFA] 2 inhalation PO Q4H PRN 01/12/18 [History] Methadone 20 mg PO Q12H PRN 01/12/18 [History] Diltiazem [Cardizem CD] 240 mg PO DAILY #30 cap.cd 09/29/18 [Rx] DULoxetine [Cymbalta] 60 mg PO DAILY 10/10/18 [History] Acetaminophen 650 mg PO Q6H PRN 11/08/18 [History] Carvedilol 12.5 mg PO BIDMEALS 11/08/18 [History] Digoxin [Lanoxin] 62.5 mcg PO DAILY 11/08/18 [History] Ipratropium/Albuterol Sulfate [Iprat-Albut 0.5-3(2.5) MG/3 ML] 3 ml INH QID PRN 11/08/18 [History] Levothyroxine 25 mcg PO ACBREAKFAST 11/08/18 [History] Lisinopril 2.5 mg PO BID 11/08/18 [History] Multivitamin with Iron [Multivitamins with Iron] 1 tab PO DAILY 11/08/18 [ History] Warfarin [Coumadin] 3 mg PO MOWEFR@1400 11/08/18 [History] Warfarin [Coumadin] 4 mg PO SUTUTHSA@1400 11/08/18 [History] Past Medical History HEENT History: Reports: Impaired Vision, Other (See Below) Other HEENT History: no teeth or dentures Cardiovascular History: Reports: Afib, Heart Failure, Heart Valve Replacement, Hypertension Other Cardiovascular History: mitral valve regurgitation Respiratory History: Reports: SOB Gastrointestinal History: Reports: GERD Other Gastrointestinal History: acid reflux Genitourinary History: Reports: None ERP [employer] LEAD History: Reports: Musculoskeletal History: Reports: Arthritis, Back Pain, Chronic, Other (See Below) Other Musculoskeletal History: scoliosis, bulging discs, carpal tunnel, restless leg Neurological History: Reports: TIA Psychiatric History: Reports: Anxiety, Depression Endocrine/Metabolic History: Reports: None Hematologic History: Reports: Anticoagulation Therapy Immunologic History: Reports: None Oncologic (Cancer) History: Reports: Breast Other Oncologic History: right breast ca Dermatologic History: Reports: None - Infectious Disease History Infectious Disease History: Reports: None - Past Surgical History Head Surgeries/Procedures: Reports: None HEENT Surgical History: Reports: None Cardiovascular Surgical History: Reports: Valve Replacement Respiratory Surgical History: Reports: None GI Surgical History: Reports: Appendectomy, Bariatric Procedure, Cholecystectomy , Colonoscopy, Other (See Below) Female Surgical History: Reports: Tubal Ligation, Other (See Below) Other Female Surgeries/Procedures: right breast lumpectomy Endocrine Surgical History: Reports: None Neurological Surgical History: Reports: None Musculoskeletal Surgical History: Reports: Carpal Tunnel, Other (See Below) Oncologic Surgical History: Reports: Lumpectomy Dermatological Surgical History: Reports: None Social & Family History - Family History Family Medical History: Noncontributory - Tobacco Use Smoking Status *Q: Light Tobacco Smoker Years of Tobacco use: 50 Packs/Tins Daily: 0.2 - Caffeine Use Caffeine Use: Reports: Coffee, Tea Caffeine Use Comment: 3-4 cups a day - Recreational Drug Use Recreational Drug Use: No - Living Situation & Occupation Living situation: Reports: , with Family Occupation: Retired H&P Review of Systems - Review of Systems: Review Of Systems: See Below General: Reports: No Symptoms HEENT: Reports: No Symptoms Pulmonary: Reports: No Symptoms Cardiovascular: Reports: No Symptoms Gastrointestinal: Reports: No Symptoms Genitourinary: Reports: No Symptoms Musculoskeletal: Reports: Shoulder Pain, Back Pain, Leg Pain Skin: Reports: No Symptoms Psychiatric: Reports: No Symptoms Neurological: Reports: No Symptoms Hematologic/Lymphatic: Reports: No Symptoms Immunologic: Reports: No Symptoms Exam - Exam Exam: See Below - Vital Signs Vital Signs: Last Vital Signs Temp 97.6 F 07/04/19 14:15 Pulse 78 07/04/19 14:15 Resp 18 07/04/19 14:15 BP 131/70 07/04/19 14:15 Pulse Ox 96 07/04/19 14:15 Weight: 66.678 kg - Exam General: Alert, Oriented, Cooperative HEENT: Conjunctiva Clear, EACs Clear, Mucosa Moist & [place], Posterior Pharynx Clear, Pupils Equal, Pupils Reactive Neck: Supple Lungs: Clear to Auscultation, Normal Respiratory Effort Cardiovascular: Regular Rate, Regular Rhythm, Other (aortic valve click) GI/Abdominal Exam: Normal Bowel Sounds, Soft, Non-Tender, No Distention Extremities: Limited Range of Motion (right leg due to pain) Skin: Warm, Dry, Intact Neuro Extensive - Mental Status: Alert, Oriented x3, Normal Mood/Affect Psychiatric: Alert, Normal Affect, Normal Mood - Patient Data Result Diagrams: 07/04/19 15:42 07/04/19 15:42 Problem List Initiated/Reviewed/Updated: Yes Orders Last 24hrs: Active Orders 24 hr Category Date Time Status Admission Status [Patient Status] [ADT] Stat ADT 07/04/19 15:04 Active Assessment/Plan Comment:: 1. Admit to inpatient 2. Code status- full 3. Vitals per routine 4. I/Os per routine 5. Diet-heart healthy 6. DVT prophylaxis- on warfarin 7. Pubic rami fractures- Pain control with home methadone, and will add morphine and oxycodone prn. Will consult PT/OT. Will work with CM on placement. Patient wants to go to a rehab facility as she does not think she will be able to ambulate and take care of her self at home. 8. Chronic conditions- Afib, heart failure, HTN, hypothyroidism, GERD- monitor on telemetry, obtain CBC, CMP, PT/INR, UA, continue on home meds.
[2019-07-04] MEDS ORDERED: Albuterol 8 GM Inhaler INH PRN (15:29)
[2019-07-04] MEDS: Carvedilol 12.5 MG Tab PO SCH (16:14)
[2019-07-04 16:15] LABS: CARBON DIOXIDE,CO2 29.1 mmol/L (21.0-32.0); POTASSIUM,K 4.5 mmol/L (3.5-5.1)
[2019-07-04] MEDS: Morphine 4 MG/ML Syringe IVPUSH PRN ×2 (16:47→21:00)
[2019-07-04] MEDS: Methadone 10 MG Tab PO SCH (20:55)
[2019-07-04] MEDS ORDERED: LISINOPRIL 2.5 MG PO SCH (21:00)
[2019-07-04] MEDS ORDERED: Digoxin 125 MCG Tab PO SCH (21:45)
[2019-07-05] MEDS: oxyCODONE 5 MG Tab PO PRN ×3 (00:48→12:20)
[2019-07-05] MEDS: Methadone 10 MG Tab PO SCH ×4 (03:13→21:12)
[2019-07-05] MEDS: Morphine 4 MG/ML Syringe IVPUSH PRN ×5 (04:17→23:48)
[2019-07-05] MEDS: Levothyroxine 25 MCG Tab PO SCH (06:48)
--- NOTE | 2019-07-05 07:34 | PCM.PN ---
- General Info Date of Service: 07/05/19 Subjective Update: The patient is a 68 year old female who was admitted for pubic rami fracture and inability to ambulate at home. She reports her pain is under control with her home meds and prn orders. She denies chest pain, shortness of breath, or abdominal pain. Nursing reports she was able to get up with them. - Review of Systems General: Reports: No Symptoms HEENT: Reports: No Symptoms Pulmonary: Reports: No Symptoms Cardiovascular: Reports: No Symptoms Gastrointestinal: Reports: No Symptoms Genitourinary: Reports: No Symptoms Musculoskeletal: Reports: Leg Pain Skin: Reports: No Symptoms Neurological: Reports: No Symptoms Psychiatric: Reports: No Symptoms - Patient Data Vitals - Most Recent: Last Vital Signs Temp 97.3 F 07/05/19 04:00 Pulse 68 07/05/19 04:00 Resp 18 07/05/19 04:00 BP 150/49 H 07/05/19 04:00 Pulse Ox 95 07/05/19 04:00 Weight - Most Recent: 66.678 kg I&O - Last 24 Hours: Intake & Output 07/04/19 07/05/19 07/05/19 22:59 06:59 14:59 Intake Total 200 Output Total 300 450 Balance -300 -250 Lab Results Last 24 Hours: Laboratory Results - last 24 hr 07/04/19 07/04/19 07/04/19 Range/Units 15:42 15:42 15:42 WBC 8.71 (4.0-11.0) K/uL RBC 4.55 (4.30-5.90) M/uL Hgb 13.2 (12.0-16.0) g/dL Hct 41.5 (36.0-46.0) % MCV 91.2 (80.0-98.0) fL MCH 29.0 (27.0-32.0) pg MCHC 31.8 (31.0-37.0) g/dL RDW Std Deviation 45.2 (28.0-62.0) fl RDW Coeff of Shaun 14 (11.0-15.0) % Plt Count 247 (150-400) K/uL MPV 9.80 (7.40-12.00) fL Neut % (Auto) 64.7 (48.0-80.0) % Lymph % (Auto) 23.7 (16.0-40.0) % [place] % (Auto) 9.1 (0.0-15.0) % Eos % (Auto) 2.2 (0.0-7.0) % Baso % (Auto) 0.3 (0.0-1.5) % Neut # (Auto) 5.6 (1.4-5.7) K/uL Lymph # (Auto) 2.1 (0.6-2.4) K/uL [place] # (Auto) 0.8 (0.0-0.8) K/uL Eos # (Auto) 0.2 (0.0-0.7) K/uL Baso # (Auto) 0.0 (0.0-0.1) K/uL Nucleated RBC % 0.0 /100WBC Nucleated RBCs # 0 K/uL INR 2.51 Sodium 138 (136-145) mmol/L Potassium 4.5 (3.5-5.1) mmol/L Chloride 103 (98-107) mmol/L Carbon Dioxide 29.1 (21.0-32.0) mmol/L BUN 21 H (7.0-18.0) mg/dL Creatinine 1.1 H (0.6-1.0) mg/dL Est Cr Clr Drug Dosing 35.16 mL/min Estimated GFR (MDRD) 49.4 ml/min Glucose 86 (74-106) mg/dL Calcium 9.6 (8.5-10.1) mg/dL Total Bilirubin 0.3 (0.2-1.0) mg/dL AST 17 (15-37) IU/L ALT 17 (14-63) IU/L Alkaline Phosphatase 117 H (46-116) U/L Total Protein 7.3 (6.4-8.2) g/dL Albumin 3.5 (3.4-5.0) g/dL Globulin 3.8 (2.6-4.0) g/dL Albumin/Globulin Ratio 0.9 (0.9-1.6) Urine Color Urine Appearance Urine pH (5.0-8.0) Ur Specific [place] (1.001-1.035) Urine Protein (NEGATIVE) mg/dL Urine Glucose (UA) (NEGATIVE) mg/dL Urine Ketones (NEGATIVE) mg/dL Urine Occult Blood (NEGATIVE) Urine Nitrite (NEGATIVE) Urine Bilirubin (NEGATIVE) Urine Urobilinogen (<2.0) EU/dL Ur Leukocyte Esterase (NEGATIVE) Urine RBC (0-2/HPF) Urine WBC (0-5/HPF) Ur Epithelial Cells (NONE-FEW) Urine Bacteria (NEGATIVE) 07/04/19 07/05/19 07/05/19 Range/Units 18:58 07:07 07:07 WBC 8.19 (4.0-11.0) K/uL RBC 4.27 L (4.30-5.90) M/uL Hgb 12.4 (12.0-16.0) g/dL Hct 38.9 (36.0-46.0) % MCV 91.1 (80.0-98.0) fL MCH 29.0 (27.0-32.0) pg MCHC 31.9 (31.0-37.0) g/dL RDW Std Deviation 45.2 (28.0-62.0) fl RDW Coeff of Shaun 14 (11.0-15.0) % Plt Count 246 (150-400) K/uL MPV 9.80 (7.40-12.00) fL Neut % (Auto) 59.2 (48.0-80.0) % Lymph % (Auto) 30.2 (16.0-40.0) % [place] % (Auto) 7.1 (0.0-15.0) % Eos % (Auto) 3.1 (0.0-7.0) % Baso % (Auto) 0.4 (0.0-1.5) % Neut # (Auto) 4.9 (1.4-5.7) K/uL Lymph # (Auto) 2.5 H (0.6-2.4) K/uL [place] # (Auto) 0.6 (0.0-0.8) K/uL Eos # (Auto) 0.3 (0.0-0.7) K/uL Baso # (Auto) 0.0 (0.0-0.1) K/uL Nucleated RBC % 0.0 /100WBC Nucleated RBCs # 0 K/uL INR 2.22 Sodium (136-145) mmol/L Potassium (3.5-5.1) mmol/L Chloride (98-107) mmol/L Carbon Dioxide (21.0-32.0) mmol/L BUN (7.0-18.0) mg/dL Creatinine (0.6-1.0) mg/dL Est Cr Clr Drug Dosing mL/min Estimated GFR (MDRD) ml/min Glucose (74-106) mg/dL Calcium (8.5-10.1) mg/dL Total Bilirubin (0.2-1.0) mg/dL AST (15-37) IU/L ALT (14-63) IU/L Alkaline Phosphatase (46-116) U/L Total Protein (6.4-8.2) g/dL Albumin (3.4-5.0) g/dL Globulin (2.6-4.0) g/dL Albumin/Globulin Ratio (0.9-1.6) Urine Color YELLOW Urine Appearance CLEAR Urine pH 6.5 (5.0-8.0) Ur Specific [place] 1.025 (1.001-1.035) Urine Protein NEGATIVE (NEGATIVE) mg/dL Urine Glucose (UA) NEGATIVE (NEGATIVE) mg/dL Urine Ketones NEGATIVE (NEGATIVE) mg/dL Urine Occult Blood TRACE-INTACT H (NEGATIVE) Urine Nitrite NEGATIVE (NEGATIVE) Urine Bilirubin NEGATIVE (NEGATIVE) Urine Urobilinogen 1.0 (<2.0) EU/dL Ur Leukocyte Esterase NEGATIVE (NEGATIVE) Urine RBC 1-2 (0-2/HPF) Urine WBC 0-1 (0-5/HPF) Ur Epithelial Cells RARE (NONE-FEW) Urine Bacteria RARE (NEGATIVE) Med Orders - Current: Current Medications Albuterol (Ventolin Hfa) 0 gm INH Q4H PRN PRN Reason: Wheezing Carvedilol (Coreg) 12.5 mg PO BIDMEALS [facility] Last Admin: 07/04/19 16:14 Dose: 12.5 mg Digoxin (Lanoxin) 62.5 mcg PO DAILY [facility] Last Admin: 07/04/19 22:10 Dose: 62.5 mcg Diltiazem HCl (Cardizem Cd) 240 mg PO DAILY [facility] Duloxetine HCl (Cymbalta) 60 mg PO DAILY [facility] Levothyroxine Sodium (Levothyroxine) 25 mcg PO ACBREAKFAST [facility] Last Admin: 07/05/19 06:48 Dose: 25 mcg Methadone HCl (Methadone) 10 mg PO Q6H [facility] Last Admin: 07/05/19 03:13 Dose: 10 mg Morphine Sulfate (Morphine) 4 mg IVPUSH Q4H PRN PRN Reason: Pain (severe 7-10) Last Admin: 07/05/19 04:17 Dose: 4 mg Non-Formulary Medication (Lisinopril) 2.5 mg PO BID [facility] Last Admin: 07/04/19 21:07 Dose: Not Given Non-Formulary Medication (Multivitamin With Iron [Multivitamins With Iron]) 1 tab PO DAILY [facility] Non-Formulary Medication (Omeprazole [Omeprazole]) 40 mg PO DAILY [facility] Ondansetron HCl (Zofran) 4 mg IVPUSH Q4H PRN PRN Reason: Nausea/Vomiting Oxycodone HCl (Oxycodone) 5 mg PO Q4H PRN PRN Reason: Pain (moderate 4-6) Last Admin: 07/05/19 06:48 Dose: 5 mg Warfarin Sodium (Coumadin) 4 mg PO SUTUTHSA@1400 [place] Warfarin Sodium (Coumadin) 3 mg PO MoWeFr@1400 [facility] Last Admin: 07/04/19 22:09 Dose: 3 mg Discontinued Medications Methadone HCl (Methadone) 10 mg PO DAILY [facility] - Exam General: Alert, Oriented, Cooperative Lungs: Clear to Auscultation, Normal Respiratory Effort Cardiovascular: Regular Rate, Regular Rhythm GI/Abdominal Exam: Normal Bowel Sounds, Soft, Non-Tender, No Distention Extremities: No Pedal Edema, Limited Range of Motion (right leg) Skin: Warm, Dry, Intact Neurological: No New Focal Deficit Psy/Mental Status: Alert, Normal Affect, Normal Mood - Problem List Review Problem List Initiated/Reviewed/Updated: Yes - My Orders Last 24 Hours: My Active Orders 07/04/19 15:23 Intake and Output [RC] Q12H Vital Signs [RC] Q4H OT Evaluation and Treatment [CONS] Stat PT Evaluation and Treatment [CONS] Stat Resuscitation Status Stat 07/04/19 15:25 Morphine 4 mg IVPUSH Q4H PRN Ondansetron [Zofran] 4 mg IVPUSH Q4H PRN oxyCODONE 5 mg PO Q4H PRN 07/04/19 15:29 Albuterol [Ventolin HFA] 0 gm INH Q4H PRN 07/04/19 17:00 Carvedilol [Coreg] 12.5 mg PO BIDMEALS 07/04/19 21:00 Lisinopril 2.5 mg PO BID Methadone 10 mg PO Q6H 07/04/19 21:45 Digoxin [Lanoxin] 62.5 mcg PO DAILY Warfarin [Coumadin] 3 mg PO MoWeFr@1400 07/04/19 Dinner Heart Healthy Diet [DIET] 07/05/19 07:07 BASIC METABOLIC PANEL,BMP [CHEM] AM 07/05/19 07:27 Cardiac Monitoring [RC] . DIRECTED 07/05/19 07:30 Levothyroxine 25 mcg PO ACBREAKFAST 07/05/19 09:00 DULoxetine [Cymbalta] 60 mg PO DAILY Diltiazem [Cardizem CD] 240 mg PO DAILY Multivitamin with Iron [Multivitamins with Iron] 1 tab PO DAILY Omeprazole [Omeprazole] 40 mg PO DAILY 07/05/19 14:00 Warfarin [Coumadin] 4 mg PO SUTUTHSA@1400 - Plan Plan:: 1. Pubic rami fractures- Patient has chronic pain and has been on methadone for years. Will continue scheduled methadone and add prn morphine and oxycodone. PT/OT consult pending. CM working on possible placement at [facility] for rehab. 8. Chronic conditions- Afib, heart failure, HTN, hypothyroidism, GERD- monitor on telemetry, continue on home meds.
[2019-07-05 07:38] LABS: CARBON DIOXIDE,CO2 28.2 mmol/L (21.0-32.0); POTASSIUM,K 4.5 mmol/L (3.5-5.1)
[2019-07-05] MEDS: Diltiazem 120 MG Cap.CD PO SCH (08:56)
[2019-07-05] MEDS: DULoxetine 60 MG Cap PO SCH (08:56)
[2019-07-05] MEDS: Carvedilol 12.5 MG Tab PO SCH ×2 (08:59→17:35)
[2019-07-05] MEDS ORDERED: Omeprazole 20 MG Cap.CR PO SCH (09:00)
[2019-07-05] MEDS ORDERED: Methadone 10 MG Tab PO SCH (09:00)
[2019-07-05] MEDS: Lisinopril 5 MG Tab PO SCH ×2 (09:02→21:16)
[2019-07-05] MEDS: Omeprazole 20 MG Cap.CR PO SCH (09:13)
[2019-07-05] MEDS: MULTIVITAMIN WITH IRON PO SCH (09:13)
[2019-07-05] MEDS: Fluticasone Propionate 44 MCG/Puff 10.6 GM Inhaler INH SCH ×2 (09:32→21:36)
[2019-07-05] MEDS: Bumetanide 1 MG Tab PO SCH (09:47)
[2019-07-05] MEDS: Polyethylene Glycol 3350 Powder 17 GM Packet PO SCH (10:24)
[2019-07-05] MEDS: Warfarin 2 MG Tab PO SCH (21:13)
[2019-07-05] MEDS: Digoxin 125 MCG Tab PO SCH (21:17)
[2019-07-06] MEDS: oxyCODONE 5 MG Tab PO PRN ×2 (00:45→16:18)
[2019-07-06] MEDS: Methadone 10 MG Tab PO SCH ×4 (02:47→21:06)
[2019-07-06] MEDS: Fluticasone Propionate 44 MCG/Puff 10.6 GM Inhaler INH SCH ×2 (05:56→20:26)
[2019-07-06] MEDS: Morphine 4 MG/ML Syringe IVPUSH PRN ×3 (06:44→21:12)
[2019-07-06] MEDS: Levothyroxine 25 MCG Tab PO SCH (06:44)
[2019-07-06] MEDS: Omeprazole 20 MG Cap.CR PO SCH (06:44)
[2019-07-06 07:46] LABS: CARBON DIOXIDE,CO2 29.6 mmol/L (21.0-32.0); POTASSIUM,K 4.4 mmol/L (3.5-5.1)
[2019-07-06] MEDS: Bumetanide 1 MG Tab PO SCH (08:08)
[2019-07-06] MEDS: DULoxetine 60 MG Cap PO SCH (08:09)
[2019-07-06] MEDS: Carvedilol 12.5 MG Tab PO SCH ×2 (08:11→17:28)
[2019-07-06] MEDS: Diltiazem 120 MG Cap.CD PO SCH (08:12)
[2019-07-06] MEDS: Lisinopril 5 MG Tab PO SCH ×2 (08:13→21:09)
[2019-07-06] MEDS: Docusate Sodium 100 MG Cap PO PRN ×2 (08:14→21:06)
[2019-07-06] MEDS: Polyethylene Glycol 3350 Powder 17 GM Packet PO SCH (08:15)
--- NOTE | 2019-07-06 08:48 | PCM.PN ---
- General Info Date of Service: 07/06/19 Subjective Update: The patient is a 68-year-old female admitted for pubic rami fracture. She reports her pain is under control with current medications. Management is working on [facility] placement. The patient required oxygen early this morning. She states she just felt very anxious about being in the hospital and going to [facility]. She feels much better now. She denies any chest pain, shortness of breath or abdominal pain. She's been up going to the bathroom with assistance and working with PT. Functional Status: Reports: Pain Controlled - Review of Systems General: Reports: No Symptoms HEENT: Reports: No Symptoms Pulmonary: Reports: No Symptoms Cardiovascular: Reports: No Symptoms Gastrointestinal: Reports: No Symptoms Genitourinary: Reports: No Symptoms Musculoskeletal: Reports: Leg Pain Skin: Reports: No Symptoms Neurological: Reports: No Symptoms Psychiatric: Reports: No Symptoms - Patient Data Vitals - Most Recent: Last Vital Signs Temp 97.3 F 07/06/19 07:48 Pulse 70 07/06/19 08:12 Resp 20 07/06/19 07:48 BP 132/63 07/06/19 08:13 Pulse Ox 97 07/06/19 07:48 Weight - Most Recent: 74.298 kg I&O - Last 24 Hours: Intake & Output 07/05/19 07/06/19 07/06/19 22:59 06:59 14:59 Intake Total 150 420 Output Total 700 600 Balance -550 -180 Lab Results Last 24 Hours: Laboratory Results - last 24 hr 07/06/19 07/06/19 07/06/19 Range/Units 07:07 07:07 07:07 WBC 8.35 (4.0-11.0) K/uL RBC 4.48 (4.30-5.90) M/uL Hgb 13.0 (12.0-16.0) g/dL Hct 40.7 (36.0-46.0) % MCV 90.8 (80.0-98.0) fL MCH 29.0 (27.0-32.0) pg MCHC 31.9 (31.0-37.0) g/dL RDW Std Deviation 45.0 (28.0-62.0) fl RDW Coeff of Shaun 14 (11.0-15.0) % Plt Count 253 (150-400) K/uL MPV 9.60 (7.40-12.00) fL Neut % (Auto) 65.2 (48.0-80.0) % Lymph % (Auto) 24.3 (16.0-40.0) % [place] % (Auto) 7.5 (0.0-15.0) % Eos % (Auto) 2.6 (0.0-7.0) % Baso % (Auto) 0.4 (0.0-1.5) % Neut # (Auto) 5.4 (1.4-5.7) K/uL Lymph # (Auto) 2.0 (0.6-2.4) K/uL [place] # (Auto) 0.6 (0.0-0.8) K/uL Eos # (Auto) 0.2 (0.0-0.7) K/uL Baso # (Auto) 0.0 (0.0-0.1) K/uL Nucleated RBC % 0.0 /100WBC Nucleated RBCs # 0 K/uL INR 1.86 Sodium 139 (136-145) mmol/L Potassium 4.4 (3.5-5.1) mmol/L Chloride 102 (98-107) mmol/L Carbon Dioxide 29.6 (21.0-32.0) mmol/L BUN 20 H (7.0-18.0) mg/dL Creatinine 1.1 H (0.6-1.0) mg/dL Est Cr Clr Drug Dosing 35.16 mL/min Estimated GFR (MDRD) 49.4 ml/min Glucose 112 H (74-106) mg/dL Calcium 9.7 (8.5-10.1) mg/dL Med Orders - Current: Current Medications Albuterol (Ventolin Hfa) 0 gm INH Q4H PRN PRN Reason: Wheezing Bumetanide (Bumex) 2 mg PO DAILY [facility] Last Admin: 07/06/19 08:08 Dose: 2 mg Carvedilol (Coreg) 12.5 mg PO BIDMEALS [facility] Last Admin: 07/06/19 08:11 Dose: 12.5 mg Digoxin (Lanoxin) 62.5 mcg PO BEDTIME [facility] Last Admin: 07/05/19 21:17 Dose: 62.5 mcg Diltiazem HCl (Cardizem Cd) 240 mg PO DAILY [facility] Last Admin: 07/06/19 08:12 Dose: 240 mg Docusate Sodium (Colace) 100 mg PO BID PRN PRN Reason: Constipation Last Admin: 07/06/19 08:14 Dose: 100 mg Duloxetine HCl (Cymbalta) 60 mg PO DAILY [facility] Last Admin: 07/06/19 08:09 Dose: 60 mg Fluticasone Propionate (Flovent Hfa 44 Mcg) 0 gm INH BIDRT [facility] Last Admin: 07/06/19 05:56 Dose: Not Given Levothyroxine Sodium (Levothyroxine) 25 mcg PO ACBREAKFAST [facility] Last Admin: 07/06/19 06:44 Dose: 25 mcg Lisinopril (Prinivil) 2.5 mg PO BID [facility] Last Admin: 07/06/19 08:13 Dose: 2.5 mg Methadone HCl (Methadone) 10 mg PO Q6H [facility] Last Admin: 07/06/19 08:10 Dose: 10 mg Morphine Sulfate (Morphine) 4 mg IVPUSH Q4H PRN PRN Reason: Pain (severe 7-10) Last Admin: 07/06/19 06:44 Dose: 4 mg Omeprazole (Omeprazole) 40 mg PO ACBREAKFAST [facility] Last Admin: 07/06/19 06:44 Dose: 40 mg Ondansetron HCl (Zofran) 4 mg IVPUSH Q4H PRN PRN Reason: Nausea/Vomiting Oxycodone HCl (Oxycodone) 5 mg PO Q4H PRN PRN Reason: Pain (moderate 4-6) Last Admin: 07/06/19 00:45 Dose: 5 mg Multivitamin With Iron [Multivitamins With Iron] 1 each PO DAILY [facility] Last Admin: 07/05/19 09:13 Dose: Not Given Polyethylene Glycol (Miralax) 17 gm PO DAILY [facility] Last Admin: 07/06/19 08:15 Dose: 17 gm Warfarin Sodium (Coumadin) 4 mg PO SuTuWeThSa@2100 [facility] Last Admin: 07/05/19 21:13 Dose: 4 mg Warfarin Sodium (Coumadin) 3 mg PO MoFr@2100 [facility] Discontinued Medications Digoxin (Lanoxin) 62.5 mcg PO DAILY [facility] Last Admin: 07/04/19 22:10 Dose: 62.5 mcg Methadone HCl (Methadone) 10 mg PO DAILY [facility] Non-Formulary Medication (Lisinopril) 2.5 mg PO BID [facility] Last Admin: 07/04/19 21:07 Dose: Not Given Omeprazole (Omeprazole) 40 mg PO DAILY [facility] Last Admin: 07/05/19 08:58 Dose: 40 mg Polyethylene Glycol (Miralax) 17 gm PO DAILY [facility] Warfarin Sodium (Coumadin) 3 mg PO MoWeFr@1400 [facility] Last Admin: 07/04/19 22:09 Dose: 3 mg - Exam General: Alert, Oriented, Cooperative Lungs: Clear to Auscultation, Normal Respiratory Effort Cardiovascular: Regular Rate, Regular Rhythm, Other (click of mechanical heart valve) GI/Abdominal Exam: Normal Bowel Sounds, Soft, Non-Tender, No Distention Extremities: No Pedal Edema, Limited Range of Motion (right leg due to pain) Skin: Warm, Dry, Intact Psy/Mental Status: Alert, Normal Affect, Normal Mood - Problem List Review Problem List Initiated/Reviewed/Updated: Yes - My Orders Last 24 Hours: My Active Orders 07/05/19 08:11 Lisinopril [Prinivil] 2.5 mg PO BID 07/05/19 08:50 Omeprazole 40 mg PO ACBREAKFAST 07/05/19 09:00 Bumetanide [Bumex] 2 mg PO DAILY DULoxetine [Cymbalta] 60 mg PO DAILY Diltiazem [Cardizem CD] 240 mg PO DAILY Fluticasone Propionate [Flovent HFA 44 MCG] 0 gm INH BIDRT Patient's Own Medication [Ptom] 1 each PO DAILY 07/05/19 18:44 Docusate Sodium [Colace] 100 mg PO BID PRN 07/05/19 21:00 Digoxin [Lanoxin] 62.5 mcg PO BEDTIME Warfarin [Coumadin] 4 mg PO SuTuWeThSa@2100 07/06/19 21:00 Warfarin [Coumadin] 3 mg PO MoFr@2100 - Plan Plan:: 1. Pubic rami fractures- Patient has chronic pain and has been on methadone for years. Will continue scheduled methadone and add prn morphine and oxycodone. Patient reports current pain medications is controlling her pain. PT evaluated patient and believes she is appropriate for SNF. PT will continue to work with her while admitted. CM working on possible placement at [facility] for rehab. 2. Subtherapeutic INR- Dr. D, cardiology adjusted her warfarin yesterday to the schedule STWTS 4 mg and MF 3 mg. 3. Chronic conditions- Afib, heart failure, HTN, hypothyroidism, GERD- monitor on telemetry, continue on home meds.
[2019-07-06] MEDS: MULTIVITAMIN WITH IRON PO SCH (08:51)
[2019-07-06] MEDS ORDERED: Polyethylene Glycol 3350 Powder 17 GM Packet PO SCH (09:00)
[2019-07-06] MEDS ORDERED: Warfarin 5 MG Tab PO ONE (21:00)
[2019-07-06] MEDS: Digoxin 125 MCG Tab PO SCH (21:08)
[2019-07-07] MEDS: Morphine 4 MG/ML Syringe IVPUSH PRN ×4 (01:42→22:35)
[2019-07-07] MEDS: Methadone 10 MG Tab PO SCH ×4 (03:01→20:15)
[2019-07-07] MEDS: oxyCODONE 5 MG Tab PO PRN ×4 (05:53→21:35)
[2019-07-07] MEDS: Fluticasone Propionate 44 MCG/Puff 10.6 GM Inhaler INH SCH ×2 (05:55→20:25)
[2019-07-07] MEDS: Omeprazole 20 MG Cap.CR PO SCH (06:29)
[2019-07-07] MEDS: Levothyroxine 25 MCG Tab PO SCH (06:30)
[2019-07-07 06:48] LABS: CARBON DIOXIDE,CO2 29.8 mmol/L (21.0-32.0); POTASSIUM,K 5.2 mmol/L (3.5-5.1)
[2019-07-07] MEDS: Bumetanide 1 MG Tab PO SCH (08:51)
[2019-07-07] MEDS: Diltiazem 120 MG Cap.CD PO SCH (08:52)
[2019-07-07] MEDS: DULoxetine 60 MG Cap PO SCH (08:52)
[2019-07-07] MEDS: Carvedilol 12.5 MG Tab PO SCH ×2 (08:53→17:13)
[2019-07-07] MEDS: Lisinopril 5 MG Tab PO SCH ×2 (08:56→20:15)
[2019-07-07] MEDS: Polyethylene Glycol 3350 Powder 17 GM Packet PO SCH (08:57)
[2019-07-07] MEDS: MULTIVITAMIN WITH IRON PO SCH (09:06)
--- NOTE | 2019-07-07 09:11 | PCM.PN ---
- General Info Date of Service: 07/07/19 Admission Dx/Problem (Free Text): Patient seen at bedside; patient is concerned about her INR level, transferr to [place], and access to her medications specifically her pain medications. States she feels pain while ambulating; otherwise has no pain while laying in bed. Patient has been making progress with physical therapy. Patient is also requesting a DEXA scan, medications for osteoporosis, and adjustments of her Coumadin levels. Requesting for attending physician to speak with daughter. Patient otherwise stable. Functional Status: Reports: Pain Controlled - Review of Systems General: Reports: No Symptoms HEENT: Reports: No Symptoms Pulmonary: Reports: No Symptoms Cardiovascular: Reports: No Symptoms Gastrointestinal: Reports: No Symptoms Musculoskeletal: Reports: Back Pain, Leg Pain, Other Skin: Reports: No Symptoms Neurological: Reports: No Symptoms Psychiatric: Reports: No Symptoms - Patient Data Vitals - Most Recent: Last Vital Signs Temp 96.7 F 07/07/19 04:00 Pulse 66 07/07/19 08:53 Resp 19 07/07/19 04:00 BP 129/59 L 07/07/19 08:56 Pulse Ox 97 07/07/19 04:00 Weight - Most Recent: 165 lb 14.4 oz I&O - Last 24 Hours: Intake & Output 07/06/19 07/07/19 07/07/19 22:59 06:59 14:59 Intake Total 740 350 Output Total 0 350 Balance 740 0 Lab Results Last 24 Hours: Laboratory Results - last 24 hr 07/06/19 07/07/19 07/07/19 Range/Units 20:03 06:05 06:05 INR 1.87 1.94 Sodium 138 (136-145) mmol/L Potassium 5.2 H (3.5-5.1) mmol/L Chloride 100 (98-107) mmol/L Carbon Dioxide 29.8 (21.0-32.0) mmol/L BUN 26 H (7.0-18.0) mg/dL Creatinine 1.1 H (0.6-1.0) mg/dL Est Cr Clr Drug Dosing 35.16 mL/min Estimated GFR (MDRD) 49.4 ml/min Glucose 127 H (74-106) mg/dL Calcium 9.8 (8.5-10.1) mg/dL Med Orders - Current: Current Medications Albuterol (Ventolin Hfa) 0 gm INH Q4H PRN PRN Reason: Wheezing Bumetanide (Bumex) 2 mg PO DAILY [facility] Last Admin: 07/07/19 08:51 Dose: 2 mg Carvedilol (Coreg) 12.5 mg PO BIDMEALS [facility] Last Admin: 07/07/19 08:53 Dose: 12.5 mg Digoxin (Lanoxin) 62.5 mcg PO BEDTIME [facility] Last Admin: 07/06/19 21:08 Dose: 62.5 mcg Diltiazem HCl (Cardizem Cd) 240 mg PO DAILY [facility] Last Admin: 07/07/19 08:52 Dose: 240 mg Docusate Sodium (Colace) 100 mg PO BID PRN PRN Reason: Constipation Last Admin: 07/06/19 21:06 Dose: 100 mg Duloxetine HCl (Cymbalta) 60 mg PO DAILY [facility] Last Admin: 07/07/19 08:52 Dose: 60 mg Fluticasone Propionate (Flovent Hfa 44 Mcg) 0 gm INH BIDRT [facility] Last Admin: 07/07/19 05:55 Dose: 2 puff Levothyroxine Sodium (Levothyroxine) 25 mcg PO ACBREAKFAST [facility] Last Admin: 07/07/19 06:30 Dose: 25 mcg Lisinopril (Prinivil) 2.5 mg PO BID [facility] Last Admin: 07/07/19 08:56 Dose: 2.5 mg Methadone HCl (Methadone) 10 mg PO Q6H [facility] Last Admin: 07/07/19 08:52 Dose: 10 mg Morphine Sulfate (Morphine) 4 mg IVPUSH Q4H PRN PRN Reason: Pain (severe 7-10) Last Admin: 07/07/19 08:54 Dose: 4 mg Omeprazole (Omeprazole) 40 mg PO ACBREAKFAST [facility] Last Admin: 07/07/19 06:29 Dose: 40 mg Ondansetron HCl (Zofran) 4 mg IVPUSH Q4H PRN PRN Reason: Nausea/Vomiting Oxycodone HCl (Oxycodone) 5 mg PO Q4H PRN PRN Reason: Pain (moderate 4-6) Last Admin: 07/07/19 05:53 Dose: 5 mg Multivitamin With Iron [Multivitamins With Iron] 1 each PO DAILY [facility] Last Admin: 07/07/19 09:06 Dose: Not Given Polyethylene Glycol (Miralax) 17 gm PO DAILY [facility] Last Admin: 07/07/19 08:57 Dose: 17 gm Warfarin Sodium (Coumadin) 4 mg PO SuTuWeThSa@2100 [facility] Last Admin: 07/05/19 21:13 Dose: 4 mg Discontinued Medications Digoxin (Lanoxin) 62.5 mcg PO DAILY [facility] Last Admin: 07/04/19 22:10 Dose: 62.5 mcg Methadone HCl (Methadone) 10 mg PO DAILY [facility] Non-Formulary Medication (Lisinopril) 2.5 mg PO BID [facility] Last Admin: 07/04/19 21:07 Dose: Not Given Omeprazole (Omeprazole) 40 mg PO DAILY [facility] Last Admin: 07/05/19 08:58 Dose: 40 mg Polyethylene Glycol (Miralax) 17 gm PO DAILY [facility] Warfarin Sodium (Coumadin) 3 mg PO MoWeFr@1400 [facility] Last Admin: 07/04/19 22:09 Dose: 3 mg Warfarin Sodium (Coumadin) 3 mg PO MoFr@2100 [facility] Warfarin Sodium (Coumadin) 5 mg PO ONETIME ONE Stop: 07/06/19 21:01 Last Admin: 07/06/19 21:08 Dose: 5 mg - Exam General: Alert, Oriented, Cooperative HEENT: Pupils Equal, EOMI Neck: Supple Lungs: Normal Respiratory Effort Cardiovascular: Regular Rate, Regular Rhythm Skin: Warm, Dry, Intact Neurological: No New Focal Deficit Psy/Mental Status: Alert, Normal Affect, Normal Mood - Problem List Review Problem List Initiated/Reviewed/Updated: Yes - Plan Plan:: 1. Pubic rami fractures- Patient has chronic pain and has been on methadone for years. Will continue scheduled methadone and add prn morphine and oxycodone. Patient reports current pain medications is controlling her pain. PT evaluated patient and believes she is appropriate for SNF. PT will continue to work with her while admitted. CM working on possible placement at [facility] for rehab. 2. Subtherapeutic INR- Dr. Zabala, cardiology adjusted her warfarin yesterday to the schedule STWTS 4 mg and MF 3 mg. Currently stable at 1.9 ; will order repeat INR in AM as coumadin adjustments take 48 hours to change levels 3. Chronic conditions- Afib, heart failure, HTN, hypothyroidism, GERD- monitor on telemetry, continue on home meds.
[2019-07-07] MEDS: Warfarin 2 MG Tab PO SCH (20:15)
[2019-07-07] MEDS: Digoxin 125 MCG Tab PO SCH (20:15)
[2019-07-07] MEDS ORDERED: Pantoprazole 40 MG Tab.CR PO ONE (22:18)
[2019-07-08] MEDS: oxyCODONE 5 MG Tab PO PRN ×4 (02:05→22:22)
[2019-07-08] MEDS: Morphine 4 MG/ML Syringe IVPUSH PRN ×2 (03:05→08:31)
[2019-07-08] MEDS: Methadone 10 MG Tab PO SCH ×4 (03:45→21:00)
[2019-07-08] MEDS: Fluticasone Propionate 44 MCG/Puff 10.6 GM Inhaler INH SCH ×2 (06:07→21:01)
[2019-07-08] MEDS: Levothyroxine 25 MCG Tab PO SCH (06:49)
[2019-07-08] MEDS: Omeprazole 20 MG Cap.CR PO SCH (06:49)
[2019-07-08 08:31] LABS: CARBON DIOXIDE,CO2 32.6 mmol/L (21.0-32.0)
[2019-07-08] MEDS: Polyethylene Glycol 3350 Powder 17 GM Packet PO SCH (08:37)
[2019-07-08] MEDS: Carvedilol 12.5 MG Tab PO SCH ×2 (08:38→16:59)
[2019-07-08] MEDS: Diltiazem 120 MG Cap.CD PO SCH (08:39)
[2019-07-08] MEDS: Lisinopril 5 MG Tab PO SCH ×2 (08:42→20:45)
[2019-07-08] MEDS: Bumetanide 1 MG Tab PO SCH (08:43)
[2019-07-08] MEDS: Docusate Sodium 100 MG Cap PO PRN (08:46)
[2019-07-08] MEDS: DULoxetine 60 MG Cap PO SCH (08:46)
[2019-07-08] MEDS: MULTIVITAMIN WITH IRON PO SCH (08:47)
[2019-07-08] MEDS ORDERED: oxyCODONE 5 MG Tab PO PRN (09:17)
--- NOTE | 2019-07-08 09:41 | PCM.PN ---
- General Info Date of Service: 07/08/19 Subjective Update: Patient admitted for pubic rami fractures, awaiting Ger placement. Today, the patient would like to change her pain medications as she will not be able to go on IV pain medicines when she goes to [place]. She would like her methadone to stay the same, but increase her oxycodone. She has not had a bowel movement and would like something to help with this. She denies any chest pain, shortness of breath, or abdominal pain - Review of Systems General: Reports: No Symptoms HEENT: Reports: No Symptoms Pulmonary: Reports: No Symptoms Cardiovascular: Reports: No Symptoms Gastrointestinal: Reports: Constipation Genitourinary: Reports: No Symptoms Musculoskeletal: Reports: Other (pelvic and leg) Skin: Reports: No Symptoms Neurological: Reports: No Symptoms Psychiatric: Reports: No Symptoms - Patient Data Vitals - Most Recent: Last Vital Signs Temp 97.4 F 07/08/19 07:00 Pulse 70 07/08/19 08:39 Resp 14 07/08/19 07:00 BP 117/68 07/08/19 08:42 Pulse Ox 98 07/08/19 07:00 Weight - Most Recent: 75.568 kg I&O - Last 24 Hours: Intake & Output 07/07/19 07/08/19 07/08/19 22:59 06:59 14:59 Intake Total 310 620 Output Total 650 650 Balance -340 -30 Lab Results Last 24 Hours: Laboratory Results - last 24 hr 07/08/19 07/08/19 Range/Units 06:03 06:03 INR 1.98 Sodium 138 (136-145) mmol/L Potassium 5.0 (3.5-5.1) mmol/L Chloride 102 (98-107) mmol/L Carbon Dioxide 32.6 H (21.0-32.0) mmol/L BUN 25 H (7.0-18.0) mg/dL Creatinine 1.1 H (0.6-1.0) mg/dL Est Cr Clr Drug Dosing 35.16 mL/min Estimated GFR (MDRD) 49.4 ml/min Glucose 99 (74-106) mg/dL Calcium 9.7 (8.5-10.1) mg/dL Med Orders - Current: Current Medications Albuterol (Ventolin Hfa) 0 gm INH Q4H PRN PRN Reason: Wheezing Bumetanide (Bumex) 2 mg PO DAILY [facility] Last Admin: 07/08/19 08:43 Dose: 2 mg Carvedilol (Coreg) 12.5 mg PO BIDMEALS [facility] Last Admin: 07/08/19 08:38 Dose: 12.5 mg Digoxin (Lanoxin) 62.5 mcg PO BEDTIME [facility] Last Admin: 07/07/19 20:15 Dose: 62.5 mcg Diltiazem HCl (Cardizem Cd) 240 mg PO DAILY [facility] Last Admin: 07/08/19 08:39 Dose: 240 mg Duloxetine HCl (Cymbalta) 60 mg PO DAILY [facility] Last Admin: 07/08/19 08:46 Dose: 60 mg Fluticasone Propionate (Flovent Hfa 44 Mcg) 0 gm INH BIDRT [facility] Last Admin: 07/08/19 06:07 Dose: 2 puff Levothyroxine Sodium (Levothyroxine) 25 mcg PO ACBREAKFAST [facility] Last Admin: 07/08/19 06:49 Dose: 25 mcg Lisinopril (Prinivil) 2.5 mg PO BID [facility] Last Admin: 07/08/19 08:42 Dose: 2.5 mg Methadone HCl (Methadone) 10 mg PO Q6H [facility] Last Admin: 07/08/19 08:40 Dose: 10 mg Omeprazole (Omeprazole) 40 mg PO ACBREAKFAST [facility] Last Admin: 07/08/19 06:49 Dose: 40 mg Ondansetron HCl (Zofran) 4 mg IVPUSH Q4H PRN PRN Reason: Nausea/Vomiting Oxycodone HCl (Oxycodone) 10 mg PO Q4H PRN PRN Reason: Pain (moderate 4-6) Multivitamin With Iron [Multivitamins With Iron] 1 each PO DAILY [facility] Last Admin: 07/08/19 08:47 Dose: Not Given Polyethylene Glycol (Miralax) 17 gm PO DAILY [facility] Last Admin: 07/08/19 08:37 Dose: 17 gm Senna/Docusate Sodium (Senna Plus) 1 tab PO BID [facility] Warfarin Sodium (Coumadin) 4 mg PO SuTuWeThSa@2100 [facility] Last Admin: 07/07/19 20:15 Dose: 4 mg Discontinued Medications Digoxin (Lanoxin) 62.5 mcg PO DAILY [facility] Last Admin: 07/04/19 22:10 Dose: 62.5 mcg Docusate Sodium (Colace) 100 mg PO BID PRN PRN Reason: Constipation Last Admin: 07/08/19 08:46 Dose: 100 mg Methadone HCl (Methadone) 10 mg PO DAILY [facility] Morphine Sulfate (Morphine) 4 mg IVPUSH Q4H PRN PRN Reason: Pain (severe 7-10) Last Admin: 07/08/19 08:31 Dose: 4 mg Non-Formulary Medication (Lisinopril) 2.5 mg PO BID [facility] Last Admin: 07/04/19 21:07 Dose: Not Given Omeprazole (Omeprazole) 40 mg PO DAILY [facility] Last Admin: 07/05/19 08:58 Dose: 40 mg Oxycodone HCl (Oxycodone) 5 mg PO Q4H PRN PRN Reason: Pain (moderate 4-6) Last Admin: 07/08/19 08:41 Dose: 5 mg Pantoprazole Sodium (Protonix) 40 mg PO ONETIME ONE Stop: 07/07/19 22:19 Last Admin: 07/07/19 22:33 Dose: 40 mg Polyethylene Glycol (Miralax) 17 gm PO DAILY [facility] Warfarin Sodium (Coumadin) 3 mg PO MoWeFr@1400 [facility] Last Admin: 07/04/19 22:09 Dose: 3 mg Warfarin Sodium (Coumadin) 3 mg PO MoFr@2100 [facility] Warfarin Sodium (Coumadin) 5 mg PO ONETIME ONE Stop: 07/06/19 21:01 Last Admin: 07/06/19 21:08 Dose: 5 mg - Exam General: Alert, Oriented, Cooperative Lungs: Clear to Auscultation, Normal Respiratory Effort Cardiovascular: Regular Rate, Regular Rhythm GI/Abdominal Exam: Normal Bowel Sounds, Soft, Non-Tender Extremities: No Pedal Edema Skin: Warm, Dry, Intact Neurological: No New Focal Deficit Psy/Mental Status: Alert, Normal Affect, Normal Mood - Problem List Review Problem List Initiated/Reviewed/Updated: Yes - My Orders Last 24 Hours: My Active Orders 07/08/19 09:17 Docusate Sodium/Sennosides [Senna Plus] 1 tab PO BID oxyCODONE 10 mg PO Q4H PRN - Plan Plan:: 1. Pubic rami fractures- Patient has chronic pain and has been on methadone for years. Will continue scheduled methadone and increase oxycodone to 10 mg q 4. Will stop IV morphine. Continue physical therapy. CM working on placement to [facility]. 2. Subtherapeutic INR- Continue schedule of STWTS 4 mg and MF [address] Amita RITCHIE in the AM. 3. Chronic conditions- Afib, heart failure, HTN, hypothyroidism, GERD- monitor on telemetry, continue on home meds. Patient and daughter want her to be started on IV medication for bones/ osteoporosis. It was explained that she would need a DEXA scan first to determine her bone density and then appropriate medication could be prescribed based on those results. It was explained that this is something for her PCP to handle once she is discharged. Patient voiced understanding.
[2019-07-08] MEDS: Ondansetron 4 MG/2 ML SDV IVPUSH PRN (18:03)
[2019-07-08] MEDS: Morphine 2 MG/ML Syringe IVPUSH PRN (19:55)
[2019-07-08] MEDS: Digoxin 125 MCG Tab PO SCH (20:45)
[2019-07-08] MEDS ORDERED: Warfarin 2 MG Tab PO ONE (21:00)
[2019-07-09] MEDS: Morphine 2 MG/ML Syringe IVPUSH PRN ×2 (01:15→12:12)
[2019-07-09] MEDS: Methadone 10 MG Tab PO SCH ×4 (03:18→21:17)
[2019-07-09] MEDS: oxyCODONE 5 MG Tab PO PRN ×5 (04:00→21:23)
[2019-07-09] MEDS: Fluticasone Propionate 44 MCG/Puff 10.6 GM Inhaler INH SCH ×2 (05:30→21:19)
[2019-07-09 06:21] LABS: CARBON DIOXIDE,CO2 31.8 mmol/L (21.0-32.0); POTASSIUM,K 4.7 mmol/L (3.5-5.1)
[2019-07-09] MEDS: Levothyroxine 25 MCG Tab PO SCH (06:46)
[2019-07-09] MEDS: Omeprazole 20 MG Cap.CR PO SCH (06:46)
--- NOTE | 2019-07-09 07:49 | PCM.PN ---
- General Info Date of Service: 07/09/19 Subjective Update: Patient admitted for pubic rami fractures awaiting rehab placement. Yesterday we tried to control her pain with oral medications only. The initial dose was not enough and she had pain. Her pain prevented her from getting up and walking yesterday. She did receive a dose of IV morphine to get her through the night. This morning she states she is going to try going without the IV pain meds again as we have increased her oral dose of oxycodone. Her pain is controlled this morning. She had a bowel movement yesterday. Denies chest pain, shortness of breath, or abdominal pain. - Review of Systems General: Reports: No Symptoms HEENT: Reports: No Symptoms Pulmonary: Reports: No Symptoms Cardiovascular: Reports: No Symptoms Gastrointestinal: Reports: No Symptoms Genitourinary: Reports: No Symptoms Musculoskeletal: Reports: Leg Pain Skin: Reports: No Symptoms Neurological: Reports: No Symptoms Psychiatric: Reports: No Symptoms - Patient Data Vitals - Most Recent: Last Vital Signs Temp 97.2 F 07/09/19 05:50 Pulse 65 07/09/19 05:50 Resp 18 07/09/19 05:50 BP 147/63 H 07/09/19 05:50 Pulse Ox 93 L 07/09/19 05:50 Weight - Most Recent: 75.795 kg I&O - Last 24 Hours: Intake & Output 07/08/19 07/09/19 07/09/19 22:59 06:59 14:59 Intake Total 600 740 Output Total 550 550 Balance 50 190 Lab Results Last 24 Hours: Laboratory Results - last 24 hr 07/08/19 07/09/19 07/09/19 Range/Units 06:03 06:00 06:00 WBC 9.00 (4.0-11.0) K/uL RBC 4.51 (4.30-5.90) M/uL Hgb 13.1 (12.0-16.0) g/dL Hct 41.6 (36.0-46.0) % MCV 92.2 (80.0-98.0) fL MCH 29.0 (27.0-32.0) pg MCHC 31.5 (31.0-37.0) g/dL RDW Std Deviation 46.1 (28.0-62.0) fl RDW Coeff of Shaun 14 (11.0-15.0) % Plt Count 301 (150-400) K/uL MPV 9.60 (7.40-12.00) fL Neut % (Auto) 59.6 (48.0-80.0) % Lymph % (Auto) 28.7 (16.0-40.0) % Sanders % (Auto) 9.1 (0.0-15.0) % Eos % (Auto) 2.3 (0.0-7.0) % Baso % (Auto) 0.3 (0.0-1.5) % Neut # (Auto) 5.4 (1.4-5.7) K/uL Lymph # (Auto) 2.6 H (0.6-2.4) K/uL Sanders # (Auto) 0.8 (0.0-0.8) K/uL Eos # (Auto) 0.2 (0.0-0.7) K/uL Baso # (Auto) 0.0 (0.0-0.1) K/uL Nucleated RBC % 0.0 /100WBC Nucleated RBCs # 0 K/uL INR Sodium 138 137 (136-145) mmol/L Potassium 5.0 4.7 (3.5-5.1) mmol/L Chloride 102 99 (98-107) mmol/L Carbon Dioxide 32.6 H 31.8 (21.0-32.0) mmol/L BUN 25 H 28 H (7.0-18.0) mg/dL Creatinine 1.1 H 1.3 H (0.6-1.0) mg/dL Est Cr Clr Drug Dosing 35.16 29.75 mL/min Estimated GFR (MDRD) 49.4 40.7 ml/min Glucose 99 89 (74-106) mg/dL Calcium 9.7 9.7 (8.5-10.1) mg/dL 07/09/19 Range/Units 06:00 WBC (4.0-11.0) K/uL RBC (4.30-5.90) M/uL Hgb (12.0-16.0) g/dL Hct (36.0-46.0) % MCV (80.0-98.0) fL MCH (27.0-32.0) pg MCHC (31.0-37.0) g/dL RDW Std Deviation (28.0-62.0) fl RDW Coeff of Shaun (11.0-15.0) % Plt Count (150-400) K/uL MPV (7.40-12.00) fL Neut % (Auto) (48.0-80.0) % Lymph % (Auto) (16.0-40.0) % Sanders % (Auto) (0.0-15.0) % Eos % (Auto) (0.0-7.0) % Baso % (Auto) (0.0-1.5) % Neut # (Auto) (1.4-5.7) K/uL Lymph # (Auto) (0.6-2.4) K/uL Sanders # (Auto) (0.0-0.8) K/uL Eos # (Auto) (0.0-0.7) K/uL Baso # (Auto) (0.0-0.1) K/uL Nucleated RBC % /100WBC Nucleated RBCs # K/uL INR 2.05 Sodium (136-145) mmol/L Potassium (3.5-5.1) mmol/L Chloride (98-107) mmol/L Carbon Dioxide (21.0-32.0) mmol/L BUN (7.0-18.0) mg/dL Creatinine (0.6-1.0) mg/dL Est Cr Clr Drug Dosing mL/min Estimated GFR (MDRD) ml/min Glucose (74-106) mg/dL Calcium (8.5-10.1) mg/dL Med Orders - Current: Current Medications Albuterol (Ventolin Hfa) 0 gm INH Q4H PRN PRN Reason: Wheezing Bumetanide (Bumex) 2 mg PO DAILY [facility] Last Admin: 07/08/19 08:43 Dose: 2 mg Carvedilol (Coreg) 12.5 mg PO BIDMEALS [facility] Last Admin: 07/08/19 16:59 Dose: 12.5 mg Digoxin (Lanoxin) 62.5 mcg PO BEDTIME [facility] Last Admin: 07/08/19 20:45 Dose: 62.5 mcg Diltiazem HCl (Cardizem Cd) 240 mg PO DAILY [facility] Last Admin: 07/08/19 08:39 Dose: 240 mg Duloxetine HCl (Cymbalta) 60 mg PO DAILY [facility] Last Admin: 07/08/19 08:46 Dose: 60 mg Fluticasone Propionate (Flovent Hfa 44 Mcg) 0 gm INH BIDRT [facility] Last Admin: 07/09/19 05:30 Dose: 2 puff Levothyroxine Sodium (Levothyroxine) 25 mcg PO ACBREAKFAST [facility] Last Admin: 07/09/19 06:46 Dose: 25 mcg Lisinopril (Prinivil) 2.5 mg PO BID [facility] Last Admin: 07/08/19 20:45 Dose: 2.5 mg Methadone HCl (Methadone) 10 mg PO Q6H [facility] Last Admin: 07/09/19 03:18 Dose: 10 mg Morphine Sulfate (Morphine) 2 mg IVPUSH Q4H PRN PRN Reason: Pain Last Admin: 07/09/19 01:15 Dose: 2 mg Omeprazole (Omeprazole) 40 mg PO ACBREAKFAST [facility] Last Admin: 07/09/19 06:46 Dose: 40 mg Ondansetron HCl (Zofran) 4 mg IVPUSH Q4H PRN PRN Reason: Nausea/Vomiting Last Admin: 07/08/19 18:03 Dose: 4 mg Oxycodone HCl (Oxycodone) 15 mg PO Q4H PRN PRN Reason: Pain (moderate 4-6) Last Admin: 07/09/19 04:00 Dose: 15 mg Multivitamin With Iron [Multivitamins With Iron] 1 each PO DAILY [facility] Last Admin: 07/08/19 08:47 Dose: Not Given Polyethylene Glycol (Miralax) 17 gm PO DAILY [facility] Last Admin: 07/08/19 08:37 Dose: 17 gm Senna/Docusate Sodium (Senna Plus) 1 tab PO BID [facility] Last Admin: 07/08/19 20:59 Dose: 1 tab Warfarin Sodium (Coumadin Ask) 1 each PO DAILY@2100 [facility] Last Admin: 07/08/19 21:01 Dose: Not Given Discontinued Medications Digoxin (Lanoxin) 62.5 mcg PO DAILY [facility] Last Admin: 07/04/19 22:10 Dose: 62.5 mcg Docusate Sodium (Colace) 100 mg PO BID PRN PRN Reason: Constipation Last Admin: 07/08/19 08:46 Dose: 100 mg Methadone HCl (Methadone) 10 mg PO DAILY [facility] Morphine Sulfate (Morphine) 4 mg IVPUSH Q4H PRN PRN Reason: Pain (severe 7-10) Last Admin: 07/08/19 08:31 Dose: 4 mg Non-Formulary Medication (Lisinopril) 2.5 mg PO BID [facility] Last Admin: 07/04/19 21:07 Dose: Not Given Omeprazole (Omeprazole) 40 mg PO DAILY [facility] Last Admin: 07/05/19 08:58 Dose: 40 mg Oxycodone HCl (Oxycodone) 5 mg PO Q4H PRN PRN Reason: Pain (moderate 4-6) Last Admin: 07/08/19 08:41 Dose: 5 mg Oxycodone HCl (Oxycodone) 10 mg PO Q4H PRN PRN Reason: Pain (moderate 4-6) Last Admin: 07/08/19 12:25 Dose: 10 mg Pantoprazole Sodium (Protonix) 40 mg PO ONETIME ONE Stop: 07/07/19 22:19 Last Admin: 07/07/19 22:33 Dose: 40 mg Polyethylene Glycol (Miralax) 17 gm PO DAILY [facility] Warfarin Sodium (Coumadin) 4 mg PO SuTuWeThSa@2100 [facility] Last Admin: 07/07/19 20:15 Dose: 4 mg Warfarin Sodium (Coumadin) 3 mg PO MoWeFr@1400 [facility] Last Admin: 07/04/19 22:09 Dose: 3 mg Warfarin Sodium (Coumadin) 3 mg PO MoFr@2100 [facility] Warfarin Sodium (Coumadin) 5 mg PO ONETIME ONE Stop: 07/06/19 21:01 Last Admin: 07/06/19 21:08 Dose: 5 mg Warfarin Sodium (Coumadin) 4 mg PO DAILY@2100 ONE Stop: 07/08/19 21:01 Last Admin: 07/08/19 20:58 Dose: 4 mg - Exam General: Alert, Oriented, Cooperative Lungs: Clear to Auscultation, Normal Respiratory Effort Cardiovascular: Regular Rate, Regular Rhythm GI/Abdominal Exam: Normal Bowel Sounds, Soft, Non-Tender, No Distention Extremities: No Pedal Edema Skin: Warm, Dry, Intact Neurological: No New Focal Deficit Psy/Mental Status: Alert, Normal Affect, Normal Mood - Problem List Review Problem List Initiated/Reviewed/Updated: Yes - My Orders Last 24 Hours: My Active Orders 07/08/19 09:17 Docusate Sodium/Sennosides [Senna Plus] 1 tab PO BID 07/08/19 16:43 oxyCODONE 15 mg PO Q4H PRN 07/08/19 21:00 Warfarin Dosing [Coumadin Ask] 1 each PO DAILY@2100 - Plan Plan:: 1. Pubic rami fractures- Patient has chronic pain and has been on methadone for years. Will continue scheduled methadone and increase oxycodone to 15 mg q 4. Will try to avoid using IV pain medications. Continue physical therapy. CM working on placement to [facility]. 2. Subtherapeutic INR- pharmacy managing warfarin dose based on INR values 3. Chronic conditions- Afib, heart failure, HTN, hypothyroidism, GERD- monitor on telemetry, continue on home meds. 4. BENIGNO- give 1 L of IVF, recheck kidney function in AM.
[2019-07-09] MEDS: Ondansetron 4 MG/2 ML SDV IVPUSH PRN ×2 (08:19→17:08)
[2019-07-09] MEDS: Lisinopril 5 MG Tab PO SCH ×2 (08:24→21:12)
[2019-07-09] MEDS: Bumetanide 1 MG Tab PO SCH (08:24)
[2019-07-09] MEDS: Carvedilol 12.5 MG Tab PO SCH ×2 (08:26→17:08)
[2019-07-09] MEDS: DULoxetine 60 MG Cap PO SCH (08:27)
[2019-07-09] MEDS: Diltiazem 120 MG Cap.CD PO SCH (08:29)
[2019-07-09] MEDS: Polyethylene Glycol 3350 Powder 17 GM Packet PO SCH (08:32)
[2019-07-09] MEDS: MULTIVITAMIN WITH IRON PO SCH (08:34)
[2019-07-09] MEDS ORDERED: Sodium Chloride 0.9% 1,000 ML IV SCH (10:30)
[2019-07-09] MEDS: Digoxin 125 MCG Tab PO SCH (21:14)
[2019-07-10] MEDS: oxyCODONE 5 MG Tab PO PRN ×5 (01:49→20:25)
[2019-07-10] MEDS: Ondansetron 4 MG/2 ML SDV IVPUSH PRN (01:59)
[2019-07-10] MEDS: Methadone 10 MG Tab PO SCH ×4 (03:02→21:55)
[2019-07-10] MEDS: Fluticasone Propionate 44 MCG/Puff 10.6 GM Inhaler INH SCH ×2 (05:59→21:03)
[2019-07-10] MEDS: Omeprazole 20 MG Cap.CR PO SCH (06:31)
[2019-07-10] MEDS: Levothyroxine 25 MCG Tab PO SCH (06:31)
[2019-07-10 07:27] LABS: CARBON DIOXIDE,CO2 32.9 mmol/L (21.0-32.0)
[2019-07-10] MEDS: Carvedilol 12.5 MG Tab PO SCH ×2 (08:17→16:09)
[2019-07-10] MEDS: Polyethylene Glycol 3350 Powder 17 GM Packet PO SCH (08:19)
[2019-07-10] MEDS: Lisinopril 5 MG Tab PO SCH ×2 (08:21→20:28)
[2019-07-10] MEDS: Bumetanide 1 MG Tab PO SCH (08:22)
[2019-07-10] MEDS: Diltiazem 120 MG Cap.CD PO SCH (08:27)
[2019-07-10] MEDS: DULoxetine 60 MG Cap PO SCH (08:27)
[2019-07-10] MEDS: MULTIVITAMIN WITH IRON PO SCH (08:32)
--- NOTE | 2019-07-10 11:29 | PCM.PN ---
<Yee Spaulding - Last Filed: 07/10/19 11:24> - General Info Date of Service: 07/10/19 Subjective Update: The patient was admitted for pubic rami fractures, pain controlled. Awaiting Ger rehab placement. Denies chest pain, shortness of breath, or abdominal pain. - Review of Systems General: Reports: No Symptoms HEENT: Reports: No Symptoms Pulmonary: Reports: No Symptoms Cardiovascular: Reports: No Symptoms Gastrointestinal: Reports: No Symptoms Genitourinary: Reports: No Symptoms Musculoskeletal: Reports: Leg Pain Skin: Reports: No Symptoms Neurological: Reports: No Symptoms Psychiatric: Reports: No Symptoms - Patient Data Vitals - Most Recent: Last Vital Signs Temp 97.8 F 07/10/19 07:00 Pulse 71 07/10/19 08:27 Resp 18 07/10/19 07:00 BP 129/59 L 07/10/19 08:27 Pulse Ox 91 L 07/10/19 07:00 Weight - Most Recent: 75.705 kg I&O - Last 24 Hours: Intake & Output 07/09/19 07/10/19 07/10/19 22:59 06:59 14:59 Intake Total 1100 300 Output Total 1350 950 Balance -250 -650 Lab Results Last 24 Hours: Laboratory Results - last 24 hr 07/10/19 07/10/19 07/10/19 Range/Units 07:04 07:04 07:04 WBC 8.41 (4.0-11.0) K/uL RBC 4.35 (4.30-5.90) M/uL Hgb 12.5 (12.0-16.0) g/dL Hct 40.1 (36.0-46.0) % MCV 92.2 (80.0-98.0) fL MCH 28.7 (27.0-32.0) pg MCHC 31.2 (31.0-37.0) g/dL RDW Std Deviation 45.8 (28.0-62.0) fl RDW Coeff of Shaun 14 (11.0-15.0) % Plt Count 292 (150-400) K/uL MPV 9.50 (7.40-12.00) fL Neut % (Auto) 64.7 (48.0-80.0) % Lymph % (Auto) 25.4 (16.0-40.0) % Larue % (Auto) 7.1 (0.0-15.0) % Eos % (Auto) 2.4 (0.0-7.0) % Baso % (Auto) 0.4 (0.0-1.5) % Neut # (Auto) 5.4 (1.4-5.7) K/uL Lymph # (Auto) 2.1 (0.6-2.4) K/uL Larue # (Auto) 0.6 (0.0-0.8) K/uL Eos # (Auto) 0.2 (0.0-0.7) K/uL Baso # (Auto) 0.0 (0.0-0.1) K/uL Nucleated RBC % 0.0 /100WBC Nucleated RBCs # 0 K/uL INR 1.65 Sodium 138 (136-145) mmol/L Potassium 4.0 (3.5-5.1) mmol/L Chloride 100 (98-107) mmol/L Carbon Dioxide 32.9 H (21.0-32.0) mmol/L BUN 31 H (7.0-18.0) mg/dL Creatinine 1.4 H (0.6-1.0) mg/dL Est Cr Clr Drug Dosing 27.63 mL/min Estimated GFR (MDRD) 37.4 ml/min Glucose 109 H (74-106) mg/dL Calcium 9.4 (8.5-10.1) mg/dL Med Orders - Current: Current Medications Albuterol (Ventolin Hfa) 0 gm INH Q4H PRN PRN Reason: Wheezing Bumetanide (Bumex) 2 mg PO DAILY [facility] Last Admin: 07/10/19 08:22 Dose: 2 mg Carvedilol (Coreg) 12.5 mg PO BIDMEALS [facility] Last Admin: 07/10/19 08:17 Dose: 12.5 mg Digoxin (Lanoxin) 62.5 mcg PO BEDTIME [facility] Last Admin: 07/09/19 21:14 Dose: 62.5 mcg Diltiazem HCl (Cardizem Cd) 240 mg PO DAILY [facility] Last Admin: 07/10/19 08:27 Dose: 240 mg Duloxetine HCl (Cymbalta) 60 mg PO DAILY [facility] Last Admin: 07/10/19 08:27 Dose: 60 mg Fluticasone Propionate (Flovent Hfa 44 Mcg) 0 gm INH BIDRT [facility] Last Admin: 07/10/19 05:59 Dose: 2 puff Levothyroxine Sodium (Levothyroxine) 25 mcg PO ACBREAKFAST [facility] Last Admin: 07/10/19 06:31 Dose: 25 mcg Lisinopril (Prinivil) 2.5 mg PO BID [facility] Last Admin: 07/10/19 08:21 Dose: 2.5 mg Methadone HCl (Methadone) 10 mg PO Q6H [facility] Last Admin: 07/10/19 08:22 Dose: 10 mg Omeprazole (Omeprazole) 40 mg PO ACBREAKFAST [facility] Last Admin: 07/10/19 06:31 Dose: 40 mg Ondansetron HCl (Zofran) 4 mg IVPUSH Q4H PRN PRN Reason: Nausea/Vomiting Last Admin: 07/10/19 01:59 Dose: 4 mg Oxycodone HCl (Oxycodone) 15 mg PO Q4H PRN PRN Reason: Pain (moderate 4-6) Last Admin: 07/10/19 10:43 Dose: 15 mg Multivitamin With Iron [Multivitamins With Iron] 1 each PO DAILY [facility] Last Admin: 07/10/19 08:32 Dose: Not Given Polyethylene Glycol (Miralax) 17 gm PO DAILY [facility] Last Admin: 07/10/19 08:19 Dose: 17 gm Senna/Docusate Sodium (Senna Plus) 1 tab PO BID [facility] Last Admin: 07/10/19 08:26 Dose: 1 tab Warfarin Sodium (Coumadin Ask) 1 each PO DAILY@2100 [facility] Last Admin: 07/09/19 20:01 Dose: Not Given Discontinued Medications Digoxin (Lanoxin) 62.5 mcg PO DAILY [facility] Last Admin: 07/04/19 22:10 Dose: 62.5 mcg Docusate Sodium (Colace) 100 mg PO BID PRN PRN Reason: Constipation Last Admin: 07/08/19 08:46 Dose: 100 mg Sodium Chloride (Normal Saline) 1,000 mls @ 100 mls/hr IV ASDIRECTED [facility] Stop: 07/09/19 20:29 Last Admin: 07/09/19 10:50 Dose: 100 mls/hr Methadone HCl (Methadone) 10 mg PO DAILY [facility] Morphine Sulfate (Morphine) 4 mg IVPUSH Q4H PRN PRN Reason: Pain (severe 7-10) Last Admin: 07/08/19 08:31 Dose: 4 mg Morphine Sulfate (Morphine) 2 mg IVPUSH Q4H PRN PRN Reason: Pain Last Admin: 07/09/19 12:12 Dose: 2 mg Non-Formulary Medication (Lisinopril) 2.5 mg PO BID [facility] Last Admin: 07/04/19 21:07 Dose: Not Given Omeprazole (Omeprazole) 40 mg PO DAILY [facility] Last Admin: 07/05/19 08:58 Dose: 40 mg Oxycodone HCl (Oxycodone) 5 mg PO Q4H PRN PRN Reason: Pain (moderate 4-6) Last Admin: 07/08/19 08:41 Dose: 5 mg Oxycodone HCl (Oxycodone) 10 mg PO Q4H PRN PRN Reason: Pain (moderate 4-6) Last Admin: 07/08/19 12:25 Dose: 10 mg Pantoprazole Sodium (Protonix) 40 mg PO ONETIME ONE Stop: 07/07/19 22:19 Last Admin: 07/07/19 22:33 Dose: 40 mg Polyethylene Glycol (Miralax) 17 gm PO DAILY [facility] Warfarin Sodium (Coumadin) 4 mg PO SuTuWeThSa@2100 [facility] Last Admin: 07/07/19 20:15 Dose: 4 mg Warfarin Sodium (Coumadin) 3 mg PO MoWeFr@1400 [facility] Last Admin: 07/04/19 22:09 Dose: 3 mg Warfarin Sodium (Coumadin) 3 mg PO MoFr@2100 [facility] Warfarin Sodium (Coumadin) 5 mg PO ONETIME ONE Stop: 07/06/19 21:01 Last Admin: 07/06/19 21:08 Dose: 5 mg Warfarin Sodium (Coumadin) 4 mg PO DAILY@2100 [facility] Stop: 07/08/19 21:01 Last Admin: 07/08/19 20:58 Dose: 4 mg Warfarin Sodium (Coumadin) 3 mg PO DAILY@2100 [facility] Stop: 07/09/19 21:01 Last Admin: 07/09/19 21:11 Dose: 3 mg - Exam General: Alert, Oriented, Cooperative Neck: Supple Lungs: Clear to Auscultation, Normal Respiratory Effort Cardiovascular: Regular Rate, Regular Rhythm GI/Abdominal Exam: Normal Bowel Sounds, Soft, Non-Tender, No Distention Extremities: No Pedal Edema Skin: Warm, Dry, Intact Neurological: No New Focal Deficit Psy/Mental Status: Alert, Normal Affect, Normal Mood - Problem List Review Problem List Initiated/Reviewed/Updated: Yes - Plan Plan:: 1. Pubic rami fractures- Patient has chronic pain and has been on methadone for years. Will continue scheduled methadone and increase oxycodone to 15 mg q 4. Will try to avoid using IV pain medications. Continue physical therapy. CM working on placement to [facility]. 2. Subtherapeutic INR- pharmacy managing warfarin dose based on INR values 3. Chronic conditions- Afib, heart failure, HTN, hypothyroidism, GERD- monitor on telemetry, continue on home meds. 4. BENIGNO- patient not drinking as much as she usually does because she doesn't like getting up to go to the bathroom. Finish bag of fluid that was started yesterday. <Santy Aguilera - Last Filed: 07/10/19 12:54> - General Info Subjective Update: I have seen and examined the patient independently of Dr. Chelly DO. I have reviewed and agree with the plan of care as outlined for this patient by her. I have discussed the case with her. Please see orders. - Patient Data Vitals - Most Recent: Last Vital Signs Temp 36.6 C 07/10/19 11:00 Pulse 68 07/10/19 11:00 Resp 16 07/10/19 11:00 BP 135/58 L 07/10/19 11:00 Pulse Ox 96 07/10/19 11:00 I&O - Last 24 Hours: Intake & Output 07/09/19 07/10/19 07/10/19 22:59 06:59 14:59 Intake Total 1100 300 Output Total 1350 950 Balance -250 -650 Lab Results Last 24 Hours: Laboratory Results - last 24 hr 07/10/19 07/10/19 07/10/19 Range/Units 07:04 07:04 07:04 WBC 8.41 (4.0-11.0) K/uL RBC 4.35 (4.30-5.90) M/uL Hgb 12.5 (12.0-16.0) g/dL Hct 40.1 (36.0-46.0) % MCV 92.2 (80.0-98.0) fL MCH 28.7 (27.0-32.0) pg MCHC 31.2 (31.0-37.0) g/dL RDW Std Deviation 45.8 (28.0-62.0) fl RDW Coeff of Shaun 14 (11.0-15.0) % Plt Count 292 (150-400) K/uL MPV 9.50 (7.40-12.00) fL Neut % (Auto) 64.7 (48.0-80.0) % Lymph % (Auto) 25.4 (16.0-40.0) % Larue % (Auto) 7.1 (0.0-15.0) % Eos % (Auto) 2.4 (0.0-7.0) % Baso % (Auto) 0.4 (0.0-1.5) % Neut # (Auto) 5.4 (1.4-5.7) K/uL Lymph # (Auto) 2.1 (0.6-2.4) K/uL Larue # (Auto) 0.6 (0.0-0.8) K/uL Eos # (Auto) 0.2 (0.0-0.7) K/uL Baso # (Auto) 0.0 (0.0-0.1) K/uL Nucleated RBC % 0.0 /100WBC Nucleated RBCs # 0 K/uL INR 1.65 Sodium 138 (136-145) mmol/L Potassium 4.0 (3.5-5.1) mmol/L Chloride 100 (98-107) mmol/L Carbon Dioxide 32.9 H (21.0-32.0) mmol/L BUN 31 H (7.0-18.0) mg/dL Creatinine 1.4 H (0.6-1.0) mg/dL Est Cr Clr Drug Dosing 27.63 mL/min Estimated GFR (MDRD) 37.4 ml/min Glucose 109 H (74-106) mg/dL Calcium 9.4 (8.5-10.1) mg/dL Med Orders - Current: Current Medications Albuterol (Ventolin Hfa) 0 gm INH Q4H PRN PRN Reason: Wheezing Bumetanide (Bumex) 2 mg PO DAILY [facility] Last Admin: 09/03/19 08:22 Dose: 2 mg Carvedilol (Coreg) 12.5 mg PO BIDMEALS [facility] Last Admin: 07/10/19 08:17 Dose: 12.5 mg Digoxin (Lanoxin) 62.5 mcg PO BEDTIME [facility] Last Admin: 07/09/19 21:14 Dose: 62.5 mcg Diltiazem HCl (Cardizem Cd) 240 mg PO DAILY [facility] Last Admin: 07/10/19 08:27 Dose: 240 mg Duloxetine HCl (Cymbalta) 60 mg PO DAILY [facility] Last Admin: 07/10/19 08:27 Dose: 60 mg Fluticasone Propionate (Flovent Hfa 44 Mcg) 0 gm INH BIDRT [facility] Last Admin: 07/10/19 05:59 Dose: 2 puff Levothyroxine Sodium (Levothyroxine) 25 mcg PO ACBREAKFAST [facility] Last Admin: 07/10/19 06:31 Dose: 25 mcg Lisinopril (Prinivil) 2.5 mg PO BID [facility] Last Admin: 07/10/19 08:21 Dose: 2.5 mg Methadone HCl (Methadone) 10 mg PO Q6H [facility] Last Admin: 07/10/19 08:22 Dose: 10 mg Omeprazole (Omeprazole) 40 mg PO ACBREAKFAST [facility] Last Admin: 07/10/19 06:31 Dose: 40 mg Ondansetron HCl (Zofran) 4 mg IVPUSH Q4H PRN PRN Reason: Nausea/Vomiting Last Admin: 07/10/19 01:59 Dose: 4 mg Oxycodone HCl (Oxycodone) 15 mg PO Q4H PRN PRN Reason: Pain (moderate 4-6) Last Admin: 07/10/19 10:43 Dose: 15 mg Multivitamin With Iron [Multivitamins With Iron] 1 each PO DAILY [facility] Last Admin: 07/10/19 08:32 Dose: Not Given Polyethylene Glycol (Miralax) 17 gm PO DAILY [facility] Last Admin: 07/10/19 08:19 Dose: 17 gm Senna/Docusate Sodium (Senna Plus) 1 tab PO BID [facility] Last Admin: 07/10/19 08:26 Dose: 1 tab Warfarin Sodium (Coumadin Ask) 1 each PO DAILY@2100 [facility] Last Admin: 07/09/19 20:01 Dose: Not Given Discontinued Medications Digoxin (Lanoxin) 62.5 mcg PO DAILY [facility] Last Admin: 07/04/19 22:10 Dose: 62.5 mcg Docusate Sodium (Colace) 100 mg PO BID PRN PRN Reason: Constipation Last Admin: 07/08/19 08:46 Dose: 100 mg Sodium Chloride (Normal Saline) 1,000 mls @ 100 mls/hr IV ASDIRECTED [facility] Stop: 07/09/19 20:29 Last Admin: 07/09/19 10:50 Dose: 100 mls/hr Methadone HCl (Methadone) 10 mg PO DAILY [facility] Morphine Sulfate (Morphine) 4 mg IVPUSH Q4H PRN PRN Reason: Pain (severe 7-10) Last Admin: 07/08/19 08:31 Dose: 4 mg Morphine Sulfate (Morphine) 2 mg IVPUSH Q4H PRN PRN Reason: Pain Last Admin: 07/09/19 12:12 Dose: 2 mg Non-Formulary Medication (Lisinopril) 2.5 mg PO BID [facility] Last Admin: 07/04/19 21:07 Dose: Not Given Omeprazole (Omeprazole) 40 mg PO DAILY [facility] Last Admin: 07/05/19 08:58 Dose: 40 mg Oxycodone HCl (Oxycodone) 5 mg PO Q4H PRN PRN Reason: Pain (moderate 4-6) Last Admin: 07/08/19 08:41 Dose: 5 mg Oxycodone HCl (Oxycodone) 10 mg PO Q4H PRN PRN Reason: Pain (moderate 4-6) Last Admin: 07/08/19 12:25 Dose: 10 mg Pantoprazole Sodium (Protonix) 40 mg PO ONETIME ONE Stop: 07/07/19 22:19 Last Admin: 07/07/19 22:33 Dose: 40 mg Polyethylene Glycol (Miralax) 17 gm PO DAILY [facility] Warfarin Sodium (Coumadin) 4 mg PO SuTuWeThSa@2100 [facility] Last Admin: 07/07/19 20:15 Dose: 4 mg Warfarin Sodium (Coumadin) 3 mg PO MoWeFr@1400 [facility] Last Admin: 07/04/19 22:09 Dose: 3 mg Warfarin Sodium (Coumadin) 3 mg PO MoFr@2100 [facility] Warfarin Sodium (Coumadin) 5 mg PO ONETIME ONE Stop: 07/06/19 21:01 Last Admin: 07/06/19 21:08 Dose: 5 mg Warfarin Sodium (Coumadin) 4 mg PO DAILY@2099 [facility] Stop: 07/08/19 21:01 Last Admin: 07/08/19 20:58 Dose: 4 mg Warfarin Sodium (Coumadin) 3 mg PO DAILY@2099 [facility] Stop: 07/09/19 21:01 Last Admin: 07/09/19 21:11 Dose: 3 mg
[2019-07-10] MEDS: Digoxin 125 MCG Tab PO SCH (20:26)
[2019-07-10] MEDS: Warfarin 2 MG Tab PO SCH (20:28)
[2019-07-11] MEDS: oxyCODONE 5 MG Tab PO PRN ×2 (00:32→04:32)
[2019-07-11] MEDS: Methadone 10 MG Tab PO SCH ×4 (03:32→21:17)
[2019-07-11] MEDS: Fluticasone Propionate 44 MCG/Puff 10.6 GM Inhaler INH SCH ×2 (06:15→21:44)
[2019-07-11] MEDS: Omeprazole 20 MG Cap.CR PO SCH (06:50)
[2019-07-11] MEDS: Levothyroxine 25 MCG Tab PO SCH (06:51)
[2019-07-11] MEDS: oxyCODONE 5 MG Tab PO SCH ×5 (08:23→23:41)
[2019-07-11] MEDS: Diltiazem 120 MG Cap.CD PO SCH (08:25)
[2019-07-11] MEDS: DULoxetine 60 MG Cap PO SCH (08:25)
[2019-07-11] MEDS: Lisinopril 5 MG Tab PO SCH ×2 (08:27→21:18)
[2019-07-11] MEDS: Carvedilol 12.5 MG Tab PO SCH ×2 (08:28→17:10)
[2019-07-11] MEDS: Polyethylene Glycol 3350 Powder 17 GM Packet PO SCH (08:29)
[2019-07-11] MEDS: Bumetanide 1 MG Tab PO SCH (08:33)
--- NOTE | 2019-07-11 09:19 | PCM.PN ---
<Yee Spaulding - Last Filed: 07/11/19 10:54> - General Info Date of Service: 07/11/19 Subjective Update: Patient admitted for pubic rami fractures awaiting [place] re[facility] placement. Yesterday they were trying to figure out insurance issues. She reports that her pain is controlled with the oxycodone but she wants it scheduled because when it is prn she doesn't get it on time and she is consistently taking the med every 4 hours. She denies chest pain, shortness of breath, or abdominal. - Review of Systems General: Reports: No Symptoms HEENT: Reports: No Symptoms Pulmonary: Reports: No Symptoms Cardiovascular: Reports: No Symptoms Gastrointestinal: Reports: No Symptoms Genitourinary: Reports: No Symptoms Musculoskeletal: Reports: No Symptoms Skin: Reports: No Symptoms Neurological: Reports: No Symptoms Psychiatric: Reports: No Symptoms - Patient Data Vitals - Most Recent: Last Vital Signs Temp 96.9 F 07/11/19 07:40 Pulse 67 07/11/19 08:28 Resp 16 07/11/19 07:40 BP 131/61 07/11/19 08:28 Pulse Ox 93 L 07/11/19 07:40 Weight - Most Recent: 75.614 kg I&O - Last 24 Hours: Intake & Output 07/10/19 07/11/19 07/11/19 22:59 06:59 14:59 Intake Total 960 650 Output Total 1220 500 Balance -260 150 Med Orders - Current: Current Medications Albuterol (Ventolin Hfa) 0 gm INH Q4H PRN PRN Reason: Wheezing Bumetanide (Bumex) 2 mg PO DAILY [facility] Last Admin: 07/11/19 08:33 Dose: 2 mg Carvedilol (Coreg) 12.5 mg PO BIDMEALS [facility] Last Admin: 07/11/19 08:28 Dose: 12.5 mg Digoxin (Lanoxin) 62.5 mcg PO BEDTIME [facility] Last Admin: 07/10/19 20:26 Dose: 62.5 mcg Diltiazem HCl (Cardizem Cd) 240 mg PO DAILY [facility] Last Admin: 07/11/19 08:25 Dose: 240 mg Duloxetine HCl (Cymbalta) 60 mg PO DAILY [facility] Last Admin: 07/11/19 08:25 Dose: 60 mg Fluticasone Propionate (Flovent Hfa 44 Mcg) 0 gm INH BIDRT [facility] Last Admin: 07/11/19 06:15 Dose: 2 puff Levothyroxine Sodium (Levothyroxine) 25 mcg PO ACBREAKFAST [facility] Last Admin: 07/11/19 06:51 Dose: 25 mcg Lisinopril (Prinivil) 2.5 mg PO BID [facility] Last Admin: 07/11/19 08:27 Dose: 2.5 mg Methadone HCl (Methadone) 10 mg PO Q6H [facility] Last Admin: 07/11/19 08:28 Dose: 10 mg Omeprazole (Omeprazole) 40 mg PO ACBREAKFAST [facility] Last Admin: 07/11/19 06:50 Dose: 40 mg Ondansetron HCl (Zofran) 4 mg IVPUSH Q4H PRN PRN Reason: Nausea/Vomiting Last Admin: 07/10/19 01:59 Dose: 4 mg Oxycodone HCl (Oxycodone) 15 mg PO Q4H [facility] Last Admin: 07/11/19 08:23 Dose: 15 mg Multivitamin With Iron [Multivitamins With Iron] 1 each PO DAILY [facility] Last Admin: 07/10/19 08:32 Dose: Not Given Polyethylene Glycol (Miralax) 17 gm PO DAILY [facility] Last Admin: 07/11/19 08:29 Dose: 17 gm Senna/Docusate Sodium (Senna Plus) 1 tab PO BID [facility] Last Admin: 07/11/19 08:26 Dose: 1 tab Warfarin Sodium (Coumadin Ask) 1 each PO DAILY@2100 [facility] Last Admin: 07/10/19 21:55 Dose: 1 each Warfarin Sodium (Coumadin) 4 mg PO DAILY@2100 [facility] Last Admin: 07/10/19 20:28 Dose: 4 mg Discontinued Medications Digoxin (Lanoxin) 62.5 mcg PO DAILY [facility] Last Admin: 07/04/19 22:10 Dose: 62.5 mcg Docusate Sodium (Colace) 100 mg PO BID PRN PRN Reason: Constipation Last Admin: 07/08/19 08:46 Dose: 100 mg Sodium Chloride (Normal Saline) 1,000 mls @ 100 mls/hr IV ASDIRECTED [facility] Stop: 07/09/19 20:29 Last Admin: 07/09/19 10:50 Dose: 100 mls/hr Methadone HCl (Methadone) 10 mg PO DAILY [facility] Morphine Sulfate (Morphine) 4 mg IVPUSH Q4H PRN PRN Reason: Pain (severe 7-10) Last Admin: 07/08/19 08:31 Dose: 4 mg Morphine Sulfate (Morphine) 2 mg IVPUSH Q4H PRN PRN Reason: Pain Last Admin: 07/09/19 12:12 Dose: 2 mg Non-Formulary Medication (Lisinopril) 2.5 mg PO BID [facility] Last Admin: 07/04/19 21:07 Dose: Not Given Omeprazole (Omeprazole) 40 mg PO DAILY [facility] Last Admin: 07/05/19 08:58 Dose: 40 mg Oxycodone HCl (Oxycodone) 5 mg PO Q4H PRN PRN Reason: Pain (moderate 4-6) Last Admin: 07/08/19 08:41 Dose: 5 mg Oxycodone HCl (Oxycodone) 10 mg PO Q4H PRN PRN Reason: Pain (moderate 4-6) Last Admin: 07/08/19 12:25 Dose: 10 mg Oxycodone HCl (Oxycodone) 15 mg PO Q4H PRN PRN Reason: Pain (moderate 4-6) Last Admin: 07/11/19 04:32 Dose: 15 mg Pantoprazole Sodium (Protonix) 40 mg PO ONETIME ONE Stop: 07/07/19 22:19 Last Admin: 07/07/19 22:33 Dose: 40 mg Polyethylene Glycol (Miralax) 17 gm PO DAILY [facility] Warfarin Sodium (Coumadin) 4 mg PO SuTuWeThSa@2100 [facility] Last Admin: 07/07/19 20:15 Dose: 4 mg Warfarin Sodium (Coumadin) 3 mg PO MoWeFr@1400 [facility] Last Admin: 07/04/19 22:09 Dose: 3 mg Warfarin Sodium (Coumadin) 3 mg PO MoFr@2100 [facility] Warfarin Sodium (Coumadin) 5 mg PO ONETIME ONE Stop: 07/06/19 21:01 Last Admin: 07/06/19 21:08 Dose: 5 mg Warfarin Sodium (Coumadin) 4 mg PO DAILY@2100 [facility] Stop: 07/08/19 21:01 Last Admin: 07/08/19 20:58 Dose: 4 mg Warfarin Sodium (Coumadin) 3 mg PO DAILY@2100 [facility] Stop: 07/09/19 21:01 Last Admin: 07/09/19 21:11 Dose: 3 mg - Exam General: Alert, Oriented, Cooperative Lungs: Clear to Auscultation, Normal Respiratory Effort Cardiovascular: Regular Rate, Regular Rhythm GI/Abdominal Exam: Normal Bowel Sounds, Soft, Non-Tender, No Distention Extremities: No Pedal Edema Skin: Warm, Dry, Intact Neurological: No New Focal Deficit Psy/Mental Status: Alert, Normal Affect, Normal Mood - Problem List & Annotations (1) Subtherapeutic international normalized ratio (INR) SNOMED Code(s): 169194447, 371472193 Code(s): R79.1 - ABNORMAL COAGULATION PROFILE Status: Acute Current Visit : Yes (2) Ambulatory dysfunction SNOMED Code(s): 085175591 Code(s): R26.2 - DIFFICULTY IN WALKING, NOT ELSEWHERE CLASSIFIED Status: Acute Current Visit: Yes (3) Pelvic fracture SNOMED Code(s): 34732522 Code(s): S32.9XXA - FRACTURE OF UNSP PARTS OF LUMBOSACRAL SPINE AND PELVIS, INIT Status: Acute Current Visit: Yes (4) Acute coronary syndrome SNOMED Code(s): 287257739 Code(s): I24.9 - ACUTE ISCHEMIC HEART DISEASE, UNSPECIFIED Status: Chronic Current Visit: No (5) CHF (congestive heart failure) SNOMED Code(s): 68524921 Code(s): I50.9 - HEART FAILURE, UNSPECIFIED Status: Chronic Current Visit : No (6) Afib SNOMED Code(s): 62657830 Code(s): I48.91 - UNSPECIFIED ATRIAL FIBRILLATION Status: Chronic Current Visit: No Qualifiers: Atrial fibrillation type: paroxysmal Qualified Code(s): I48.0 - Paroxysmal atrial fibrillation (7) Chronic pain syndrome SNOMED Code(s): 836829130 Code(s): G89.4 - CHRONIC PAIN SYNDROME Status: Chronic Current Visit: No (8) Hx of aortic valve replacement SNOMED Code(s): 0644402250750, 598407496, 6181719998450 Code(s): Z95.2 - PRESENCE OF PROSTHETIC HEART VALVE Status: Chronic Current Visit: No (9) BENIGNO (acute kidney injury) SNOMED Code(s): 57140199, 97230898 Code(s): N17.9 - ACUTE KIDNEY FAILURE, UNSPECIFIED Status: Acute Current Visit: Yes - Problem List Review Problem List Initiated/Reviewed/Updated: Yes - My Orders Last 24 Hours: My Active Orders 07/11/19 07:45 oxyCODONE 15 mg PO Q4H - Plan Plan:: 1. Pubic rami fractures- Patient has chronic pain and has been on methadone for years. Will continue scheduled methadone and schedule oxycodone 15 mg q 4 hours Will try to avoid using IV pain medications. Continue physical therapy. CM working on placement to [facility]. 2. Subtherapeutic INR- pharmacy managing warfarin dose based on INR values 3. Chronic conditions- Afib, heart failure, HTN, hypothyroidism, GERD- monitor on telemetry, continue on home meds. 4. BENIGNO- improved-patient not drinking as much as she usually does because she doesn't like getting up to go to the bathroom. <Santy Aguilera - Last Filed: 07/11/19 15:58> - General Info Admission Dx/Problem (Free Text): I have seen and examined the patient independently of Dr. Chelly DO. I have reviewed and agree with the plan of care as outlined for this patient by her. I have discussed the case with her. Please see orders. Awaiting placement. - Patient Data Vitals - Most Recent: Last Vital Signs Temp 35.6 C 07/11/19 11:41 Pulse 69 07/11/19 11:41 Resp 22 H 07/11/19 11:41 BP 140/67 07/11/19 11:41 Pulse Ox 97 07/11/19 11:41 I&O - Last 24 Hours: Intake & Output 07/11/19 07/11/19 07/11/19 06:59 14:59 22:59 Intake Total 650 Output Total 500 Balance 150 Lab Results Last 24 Hours: Laboratory Results - last 24 hr 07/11/19 Range/Units 09:37 Sodium 137 (136-145) mmol/L Potassium 4.3 (3.5-5.1) mmol/L Chloride 98 (98-107) mmol/L Carbon Dioxide 29.8 (21.0-32.0) mmol/L BUN 31 H (7.0-18.0) mg/dL Creatinine 1.3 H (0.6-1.0) mg/dL Est Cr Clr Drug Dosing 29.75 mL/min Estimated GFR (MDRD) 40.7 ml/min Glucose 120 H (74-106) mg/dL Calcium 9.9 (8.5-10.1) mg/dL Med Orders - Current: Current Medications Albuterol (Ventolin Hfa) 0 gm INH Q4H PRN PRN Reason: Wheezing Bumetanide (Bumex) 2 mg PO DAILY [facility] Last Admin: 07/11/19 08:33 Dose: 2 mg Carvedilol (Coreg) 12.5 mg PO BIDMEALS [facility] Last Admin: 07/11/19 08:28 Dose: 12.5 mg Digoxin (Lanoxin) 62.5 mcg PO BEDTIME [facility] Last Admin: 07/10/19 20:26 Dose: 62.5 mcg Diltiazem HCl (Cardizem Cd) 240 mg PO DAILY [facility] Last Admin: 07/11/19 08:25 Dose: 240 mg Duloxetine HCl (Cymbalta) 60 mg PO DAILY [facility] Last Admin: 07/11/19 08:25 Dose: 60 mg Fluticasone Propionate (Flovent Hfa 44 Mcg) 0 gm INH BIDRT [facility] Last Admin: 07/11/19 06:15 Dose: 2 puff Levothyroxine Sodium (Levothyroxine) 25 mcg PO ACBREAKFAST [facility] Last Admin: 07/11/19 06:51 Dose: 25 mcg Lisinopril (Prinivil) 2.5 mg PO BID [facility] Last Admin: 07/11/19 08:27 Dose: 2.5 mg Methadone HCl (Methadone) 10 mg PO Q6H [facility] Last Admin: 07/11/19 15:16 Dose: 10 mg Omeprazole (Omeprazole) 40 mg PO ACBREAKFAST [facility] Last Admin: 07/11/19 06:50 Dose: 40 mg Ondansetron HCl (Zofran) 4 mg IVPUSH Q4H PRN PRN Reason: Nausea/Vomiting Last Admin: 07/10/19 01:59 Dose: 4 mg Oxycodone HCl (Oxycodone) 15 mg PO Q4H [facility] Last Admin: 07/11/19 11:41 Dose: 15 mg Multivitamin With Iron [Multivitamins With Iron] 1 each PO DAILY [facility] Last Admin: 07/11/19 10:43 Dose: Not Given Polyethylene Glycol (Miralax) 17 gm PO DAILY [facility] Last Admin: 07/11/19 08:29 Dose: 17 gm Senna/Docusate Sodium (Senna Plus) 1 tab PO BID [facility] Last Admin: 07/11/19 08:26 Dose: 1 tab Warfarin Sodium (Coumadin Ask) 1 each PO DAILY@2100 [facility] Last Admin: 07/10/19 21:55 Dose: 1 each Warfarin Sodium (Coumadin) 4 mg PO DAILY@2100 [facility] Last Admin: 07/10/19 20:28 Dose: 4 mg Discontinued Medications Digoxin (Lanoxin) 62.5 mcg PO DAILY [facility] Last Admin: 07/04/19 22:10 Dose: 62.5 mcg Docusate Sodium (Colace) 100 mg PO BID PRN PRN Reason: Constipation Last Admin: 07/08/19 08:46 Dose: 100 mg Sodium Chloride (Normal Saline) 1,000 mls @ 100 mls/hr IV ASDIRECTED [facility] Stop: 07/09/19 20:29 Last Admin: 07/09/19 10:50 Dose: 100 mls/hr Methadone HCl (Methadone) 10 mg PO DAILY [facility] Morphine Sulfate (Morphine) 4 mg IVPUSH Q4H PRN PRN Reason: Pain (severe 7-10) Last Admin: 07/08/19 08:31 Dose: 4 mg Morphine Sulfate (Morphine) 2 mg IVPUSH Q4H PRN PRN Reason: Pain Last Admin: 07/09/19 12:12 Dose: 2 mg Non-Formulary Medication (Lisinopril) 2.5 mg PO BID [facility] Last Admin: 07/04/19 21:07 Dose: Not Given Omeprazole (Omeprazole) 40 mg PO DAILY [facility] Last Admin: 07/05/19 08:58 Dose: 40 mg Oxycodone HCl (Oxycodone) 5 mg PO Q4H PRN PRN Reason: Pain (moderate 4-6) Last Admin: 07/08/19 08:41 Dose: 5 mg Oxycodone HCl (Oxycodone) 10 mg PO Q4H PRN PRN Reason: Pain (moderate 4-6) Last Admin: 07/08/19 12:25 Dose: 10 mg Oxycodone HCl (Oxycodone) 15 mg PO Q4H PRN PRN Reason: Pain (moderate 4-6) Last Admin: 07/11/19 04:32 Dose: 15 mg Pantoprazole Sodium (Protonix) 40 mg PO ONETIME ONE Stop: 07/07/19 22:19 Last Admin: 07/07/19 22:33 Dose: 40 mg Polyethylene Glycol (Miralax) 17 gm PO DAILY [facility] Warfarin Sodium (Coumadin) 4 mg PO SuTuWeThSa@2100 [facility] Last Admin: 07/07/19 20:15 Dose: 4 mg Warfarin Sodium (Coumadin) 3 mg PO MoWeFr@1400 [facility] Last Admin: 07/04/19 22:09 Dose: 3 mg Warfarin Sodium (Coumadin) 3 mg PO MoFr@2100 [facility] Warfarin Sodium (Coumadin) 5 mg PO ONETIME ONE Stop: 07/06/19 21:01 Last Admin: 07/06/19 21:08 Dose: 5 mg Warfarin Sodium (Coumadin) 4 mg PO DAILY@2100 ONE Stop: 07/08/19 21:01 Last Admin: 07/08/19 20:58 Dose: 4 mg Warfarin Sodium (Coumadin) 3 mg PO DAILY@2100 ONE Stop: 07/09/19 21:01 Last Admin: 07/09/19 21:11 Dose: 3 mg
[2019-07-11 10:40] LABS: CARBON DIOXIDE,CO2 29.8 mmol/L (21.0-32.0); POTASSIUM,K 4.3 mmol/L (3.5-5.1)
[2019-07-11] MEDS: MULTIVITAMIN WITH IRON PO SCH (10:43)
[2019-07-11] MEDS: Warfarin 2 MG Tab PO SCH (21:16)
[2019-07-11] MEDS: Digoxin 125 MCG Tab PO SCH (21:18)
[2019-07-12] MEDS: Methadone 10 MG Tab PO SCH ×2 (03:37→09:41)
[2019-07-12] MEDS: oxyCODONE 5 MG Tab PO SCH ×3 (03:37→11:40)
[2019-07-12] MEDS: Fluticasone Propionate 44 MCG/Puff 10.6 GM Inhaler INH SCH (06:17)
[2019-07-12] MEDS: Levothyroxine 25 MCG Tab PO SCH (07:21)
[2019-07-12] MEDS: Omeprazole 20 MG Cap.CR PO SCH (07:22)
[2019-07-12] MEDS: Polyethylene Glycol 3350 Powder 17 GM Packet PO SCH (08:14)
[2019-07-12] MEDS: Diltiazem 120 MG Cap.CD PO SCH (08:14)
[2019-07-12] MEDS: DULoxetine 60 MG Cap PO SCH (08:15)
[2019-07-12] MEDS: Lisinopril 5 MG Tab PO SCH (08:15)
[2019-07-12] MEDS: Bumetanide 1 MG Tab PO SCH (08:15)
[2019-07-12] MEDS: Carvedilol 12.5 MG Tab PO SCH (08:16)
--- NOTE | 2019-07-12 09:25 | PCM.PN ---
<ChellyTiffany suareztany - Last Filed: 07/12/19 11:08> - General Info Date of Service: 07/12/19 Subjective Update: Patient admitted for pubic rami fractures, awaiting [facility] placement. Reports doing well, pain controlled with oral medications. Denies chest pain, shortness of breath, or abdominal pain. - Review of Systems General: Reports: No Symptoms HEENT: Reports: No Symptoms Pulmonary: Reports: No Symptoms Cardiovascular: Reports: No Symptoms Gastrointestinal: Reports: No Symptoms Genitourinary: Reports: No Symptoms Musculoskeletal: Reports: No Symptoms Skin: Reports: No Symptoms Neurological: Reports: No Symptoms Psychiatric: Reports: No Symptoms - Patient Data Vitals - Most Recent: Last Vital Signs Temp 96.8 F 07/12/19 07:30 Pulse 70 07/12/19 08:16 Resp 16 07/12/19 03:34 BP 129/50 L 07/12/19 08:16 Pulse Ox 95 07/12/19 07:30 Weight - Most Recent: 75.977 kg I&O - Last 24 Hours: Intake & Output 07/11/19 07/12/19 07/12/19 22:59 06:59 14:59 Intake Total 1020 630 Output Total 750 400 Balance 270 230 Lab Results Last 24 Hours: Laboratory Results - last 24 hr 07/11/19 07/12/19 Range/Units 09:37 07:07 INR 1.52 Sodium 137 (136-145) mmol/L Potassium 4.3 (3.5-5.1) mmol/L Chloride 98 (98-107) mmol/L Carbon Dioxide 29.8 (21.0-32.0) mmol/L BUN 31 H (7.0-18.0) mg/dL Creatinine 1.3 H (0.6-1.0) mg/dL Est Cr Clr Drug Dosing 29.75 mL/min Estimated GFR (MDRD) 40.7 ml/min Glucose 120 H (74-106) mg/dL Calcium 9.9 (8.5-10.1) mg/dL Med Orders - Current: Current Medications Albuterol (Ventolin Hfa) 0 gm INH Q4H PRN PRN Reason: Wheezing Bumetanide (Bumex) 2 mg PO DAILY [facility] Last Admin: 07/12/19 08:15 Dose: 2 mg Carvedilol (Coreg) 12.5 mg PO BIDMEALS [facility] Last Admin: 07/12/19 08:16 Dose: 12.5 mg Digoxin (Lanoxin) 62.5 mcg PO BEDTIME [facility] Last Admin: 07/11/19 21:18 Dose: 62.5 mcg Diltiazem HCl (Cardizem Cd) 240 mg PO DAILY [facility] Last Admin: 07/12/19 08:14 Dose: 240 mg Duloxetine HCl (Cymbalta) 60 mg PO DAILY [facility] Last Admin: 07/12/19 08:15 Dose: 60 mg Fluticasone Propionate (Flovent Hfa 44 Mcg) 0 gm INH BIDRT [facility] Last Admin: 07/12/19 06:17 Dose: 2 puff Levothyroxine Sodium (Levothyroxine) 25 mcg PO ACBREAKFAST [facility] Last Admin: 07/12/19 07:21 Dose: 25 mcg Lisinopril (Prinivil) 2.5 mg PO BID [facility] Last Admin: 07/12/19 08:15 Dose: 2.5 mg Methadone HCl (Methadone) 10 mg PO Q6H [facility] Last Admin: 07/12/19 03:37 Dose: 10 mg Omeprazole (Omeprazole) 40 mg PO ACBREAKFAST [facility] Last Admin: 07/12/19 07:22 Dose: 40 mg Ondansetron HCl (Zofran) 4 mg IVPUSH Q4H PRN PRN Reason: Nausea/Vomiting Last Admin: 07/10/19 01:59 Dose: 4 mg Oxycodone HCl (Oxycodone) 15 mg PO Q4H [facility] Last Admin: 07/12/19 07:54 Dose: 15 mg Multivitamin With Iron [Multivitamins With Iron] 1 each PO DAILY [facility] Last Admin: 07/11/19 10:43 Dose: Not Given Polyethylene Glycol (Miralax) 17 gm PO DAILY [facility] Last Admin: 07/12/19 08:14 Dose: 17 gm Senna/Docusate Sodium (Senna Plus) 1 tab PO BID [facility] Last Admin: 07/12/19 08:17 Dose: Not Given Warfarin Sodium (Coumadin Ask) 1 each PO DAILY@2100 [facility] Last Admin: 07/11/19 21:19 Dose: 1 each Warfarin Sodium (Coumadin) 6 mg PO DAILY@2100 ONE Stop: 07/12/19 21:01 Discontinued Medications Digoxin (Lanoxin) 62.5 mcg PO DAILY [facility] Last Admin: 07/04/19 22:10 Dose: 62.5 mcg Docusate Sodium (Colace) 100 mg PO BID PRN PRN Reason: Constipation Last Admin: 07/08/19 08:46 Dose: 100 mg Sodium Chloride (Normal Saline) 1,000 mls @ 100 mls/hr IV ASDIRECTED [facility] Stop: 07/09/19 20:29 Last Admin: 07/09/19 10:50 Dose: 100 mls/hr Methadone HCl (Methadone) 10 mg PO DAILY [facility] Morphine Sulfate (Morphine) 4 mg IVPUSH Q4H PRN PRN Reason: Pain (severe 7-10) Last Admin: 07/08/19 08:31 Dose: 4 mg Morphine Sulfate (Morphine) 2 mg IVPUSH Q4H PRN PRN Reason: Pain Last Admin: 07/09/19 12:12 Dose: 2 mg Non-Formulary Medication (Lisinopril) 2.5 mg PO BID [facility] Last Admin: 07/04/19 21:07 Dose: Not Given Omeprazole (Omeprazole) 40 mg PO DAILY [facility] Last Admin: 07/05/19 08:58 Dose: 40 mg Oxycodone HCl (Oxycodone) 5 mg PO Q4H PRN PRN Reason: Pain (moderate 4-6) Last Admin: 07/08/19 08:41 Dose: 5 mg Oxycodone HCl (Oxycodone) 10 mg PO Q4H PRN PRN Reason: Pain (moderate 4-6) Last Admin: 07/08/19 12:25 Dose: 10 mg Oxycodone HCl (Oxycodone) 15 mg PO Q4H PRN PRN Reason: Pain (moderate 4-6) Last Admin: 07/11/19 04:32 Dose: 15 mg Pantoprazole Sodium (Protonix) 40 mg PO ONETIME ONE Stop: 07/07/19 22:19 Last Admin: 07/07/19 22:33 Dose: 40 mg Polyethylene Glycol (Miralax) 17 gm PO DAILY [facility] Warfarin Sodium (Coumadin) 4 mg PO SuTuWeThSa@2100 [facility] Last Admin: 07/07/19 20:15 Dose: 4 mg Warfarin Sodium (Coumadin) 3 mg PO MoWeFr@1400 [facility] Last Admin: 07/04/19 22:09 Dose: 3 mg Warfarin Sodium (Coumadin) 3 mg PO MoFr@2100 [facility] Warfarin Sodium (Coumadin) 5 mg PO ONETIME ONE Stop: 07/06/19 21:01 Last Admin: 07/06/19 21:08 Dose: 5 mg Warfarin Sodium (Coumadin) 4 mg PO DAILY@2100 [facility] Stop: 07/08/19 21:01 Last Admin: 07/08/19 20:58 Dose: 4 mg Warfarin Sodium (Coumadin) 3 mg PO DAILY@2100 [facility] Stop: 07/09/19 21:01 Last Admin: 07/09/19 21:11 Dose: 3 mg Warfarin Sodium (Coumadin) 4 mg PO DAILY@2100 [facility] Last Admin: 07/11/19 21:16 Dose: 4 mg - Exam General: Alert, Oriented, Cooperative Neck: Supple Lungs: Clear to Auscultation, Normal Respiratory Effort Cardiovascular: Regular Rate, Regular Rhythm GI/Abdominal Exam: Normal Bowel Sounds, Soft, Non-Tender - Problem List & Annotations (1) Subtherapeutic international normalized ratio (INR) SNOMED Code(s): 495314370, 640879062 Code(s): R79.1 - ABNORMAL COAGULATION PROFILE Status: Acute Current Visit : Yes (2) Ambulatory dysfunction SNOMED Code(s): 666274887 Code(s): R26.2 - DIFFICULTY IN WALKING, NOT ELSEWHERE CLASSIFIED Status: Acute Current Visit: Yes (3) Pelvic fracture SNOMED Code(s): 85652683 Code(s): S32.9XXA - FRACTURE OF UNSP PARTS OF LUMBOSACRAL SPINE AND PELVIS, INIT Status: Acute Current Visit: Yes (4) Acute coronary syndrome SNOMED Code(s): 072280175 Code(s): I24.9 - ACUTE ISCHEMIC HEART DISEASE, UNSPECIFIED Status: Chronic Current Visit: No (5) CHF (congestive heart failure) SNOMED Code(s): 21185428 Code(s): I50.9 - HEART FAILURE, UNSPECIFIED Status: Chronic Current Visit : No (6) Afib SNOMED Code(s): 88201882 Code(s): I48.91 - UNSPECIFIED ATRIAL FIBRILLATION Status: Chronic Current Visit: No Qualifiers: Atrial fibrillation type: paroxysmal Qualified Code(s): I48.0 - Paroxysmal atrial fibrillation (7) Chronic pain syndrome SNOMED Code(s): 009629722 Code(s): G89.4 - CHRONIC PAIN SYNDROME Status: Chronic Current Visit: No (8) Hx of aortic valve replacement SNOMED Code(s): 2943354318279, 636284537, 8950579482539 Code(s): Z95.2 - PRESENCE OF PROSTHETIC HEART VALVE Status: Chronic Current Visit: No (9) BENIGNO (acute kidney injury) SNOMED Code(s): 20650733, 79644546 Code(s): N17.9 - ACUTE KIDNEY FAILURE, UNSPECIFIED Status: Acute Current Visit: Yes - Problem List Review Problem List Initiated/Reviewed/Updated: Yes - Plan Plan:: 1. Pubic rami fractures- Patient has chronic pain and has been on methadone for years. Scheduled pain medications working better. Continue methadone 10 q 6 and oxycodone 15 mg q 4. Will try to avoid using IV pain medications. Continue physical therapy. CM working on placement to [facility]. 2. Subtherapeutic INR- pharmacy managing warfarin dose based on INR values 3. Chronic conditions- Afib, heart failure, HTN, hypothyroidism, GERD- monitor on telemetry, continue on home meds. 4. BENIGNO- improved-patient not drinking as much as she usually does because she doesn't like getting up to go to the bathroom. <Santy Aguilera - Last Filed: 07/12/19 13:17> - General Info Admission Dx/Problem (Free Text): I have examined the patient independently of medical editor, Dr. Spaulding. I have discussed the case with her. I have reviewed and agree with the plan of care as outlined for the patient by her. Please see orders. - Patient Data Vitals - Most Recent: Last Vital Signs Temp 35.9 C 07/12/19 12:00 Pulse 64 07/12/19 12:00 Resp 16 07/12/19 12:00 BP 110/52 L 07/12/19 12:00 Pulse Ox 96 07/12/19 12:00 I&O - Last 24 Hours: Intake & Output 07/11/19 07/12/19 07/12/19 22:59 06:59 14:59 Intake Total 1020 630 Output Total 750 400 Balance 270 230 Lab Results Last 24 Hours: Laboratory Results - last 24 hr 07/12/19 Range/Units 07:07 INR 1.52 Med Orders - Current: Current Medications Albuterol (Ventolin Hfa) 0 gm INH Q4H PRN PRN Reason: Wheezing Bumetanide (Bumex) 2 mg PO DAILY [facility] Last Admin: 07/12/19 08:15 Dose: 2 mg Carvedilol (Coreg) 12.5 mg PO BIDMEALS [facility] Last Admin: 07/12/19 08:16 Dose: 12.5 mg Digoxin (Lanoxin) 62.5 mcg PO BEDTIME [facility] Last Admin: 07/11/19 21:18 Dose: 62.5 mcg Diltiazem HCl (Cardizem Cd) 240 mg PO DAILY [facility] Last Admin: 07/12/19 08:14 Dose: 240 mg Duloxetine HCl (Cymbalta) 60 mg PO DAILY [facility] Last Admin: 07/12/19 08:15 Dose: 60 mg Fluticasone Propionate (Flovent Hfa 44 Mcg) 0 gm INH BIDRT [facility] Last Admin: 07/12/19 06:17 Dose: 2 puff Levothyroxine Sodium (Levothyroxine) 25 mcg PO ACBREAKFAST [facility] Last Admin: 07/12/19 07:21 Dose: 25 mcg Lisinopril (Prinivil) 2.5 mg PO BID [facility] Last Admin: 07/12/19 08:15 Dose: 2.5 mg Methadone HCl (Methadone) 10 mg PO Q6H [facility] Last Admin: 07/12/19 09:41 Dose: 10 mg Omeprazole (Omeprazole) 40 mg PO ACBREAKFAST [facility] Last Admin: 07/12/19 07:22 Dose: 40 mg Ondansetron HCl (Zofran) 4 mg IVPUSH Q4H PRN PRN Reason: Nausea/Vomiting Last Admin: 07/10/19 01:59 Dose: 4 mg Oxycodone HCl (Oxycodone) 15 mg PO Q4H [facility] Last Admin: 07/12/19 11:40 Dose: 15 mg Multivitamin With Iron [Multivitamins With Iron] 1 each PO DAILY [facility] Last Admin: 07/12/19 09:44 Dose: Not Given Polyethylene Glycol (Miralax) 17 gm PO DAILY [facility] Last Admin: 07/12/19 08:14 Dose: 17 gm Senna/Docusate Sodium (Senna Plus) 1 tab PO BID [facility] Last Admin: 07/12/19 08:17 Dose: Not Given Warfarin Sodium (Coumadin Ask) 1 each PO DAILY@2100 [facility] Last Admin: 07/11/19 21:19 Dose: 1 each Warfarin Sodium (Coumadin) 6 mg PO DAILY@2100 ONE Stop: 07/12/19 21:01 Discontinued Medications Digoxin (Lanoxin) 62.5 mcg PO DAILY [facility] Last Admin: 07/04/19 22:10 Dose: 62.5 mcg Docusate Sodium (Colace) 100 mg PO BID PRN PRN Reason: Constipation Last Admin: 07/08/19 08:46 Dose: 100 mg Sodium Chloride (Normal Saline) 1,000 mls @ 100 mls/hr IV ASDIRECTED [facility] Stop: 07/09/19 20:29 Last Admin: 07/09/19 10:50 Dose: 100 mls/hr Methadone HCl (Methadone) 10 mg PO DAILY [facility] Morphine Sulfate (Morphine) 4 mg IVPUSH Q4H PRN PRN Reason: Pain (severe 7-10) Last Admin: 07/08/19 08:31 Dose: 4 mg Morphine Sulfate (Morphine) 2 mg IVPUSH Q4H PRN PRN Reason: Pain Last Admin: 07/09/19 12:12 Dose: 2 mg Non-Formulary Medication (Lisinopril) 2.5 mg PO BID [facility] Last Admin: 07/04/19 21:07 Dose: Not Given Omeprazole (Omeprazole) 40 mg PO DAILY [facility] Last Admin: 07/05/19 08:58 Dose: 40 mg Oxycodone HCl (Oxycodone) 5 mg PO Q4H PRN PRN Reason: Pain (moderate 4-6) Last Admin: 07/08/19 08:41 Dose: 5 mg Oxycodone HCl (Oxycodone) 10 mg PO Q4H PRN PRN Reason: Pain (moderate 4-6) Last Admin: 07/08/19 12:25 Dose: 10 mg Oxycodone HCl (Oxycodone) 15 mg PO Q4H PRN PRN Reason: Pain (moderate 4-6) Last Admin: 07/11/19 04:32 Dose: 15 mg Pantoprazole Sodium (Protonix) 40 mg PO ONETIME ONE Stop: 07/07/19 22:19 Last Admin: 07/07/19 22:33 Dose: 40 mg Polyethylene Glycol (Miralax) 17 gm PO DAILY [facility] Warfarin Sodium (Coumadin) 4 mg PO SuTuWeThSa@2100 [facility] Last Admin: 07/07/19 20:15 Dose: 4 mg Warfarin Sodium (Coumadin) 3 mg PO MoWeFr@1400 [facility] Last Admin: 07/04/19 22:09 Dose: 3 mg Warfarin Sodium (Coumadin) 3 mg PO MoFr@2100 [facility] Warfarin Sodium (Coumadin) 5 mg PO ONETIME ONE Stop: 07/06/19 21:01 Last Admin: 07/06/19 21:08 Dose: 5 mg Warfarin Sodium (Coumadin) 4 mg PO DAILY@2099 [facility] Stop: 07/08/19 21:01 Last Admin: 07/08/19 20:58 Dose: 4 mg Warfarin Sodium (Coumadin) 3 mg PO DAILY@2099 [facility] Stop: 07/09/19 21:01 Last Admin: 07/09/19 21:11 Dose: 3 mg Warfarin Sodium (Coumadin) 4 mg PO DAILY@2100 [facility] Last Admin: 07/11/19 21:16 Dose: 4 mg
[2019-07-12] MEDS: MULTIVITAMIN WITH IRON PO SCH (09:44)
[2019-07-12 12:08] VITALS: BP 110/52
--- NOTE | 2019-07-12 13:17 | PCM.DCSUM1 ---
<Yee Spaulding - Last Filed: 07/12/19 17:26> Discharge Summary - Hospital Course HPI Initial Comments: Admission Date:07/04/19 Discharge Date: Admission Diagnosis: 1. Pubic rami fractures 2. Chronic conditions- Afib, heart failure, HTN, hypothyroidism, GERD Discharge Diagnosis: 1. Pubic rami fractures 2. BENIGNO-improved 3. Subtherapeutic INR in aortic valve replacement 4. Chronic conditions- Afib, heart failure, HTN, hypothyroidism, GERD Procedures: None Consults: None Hospital Course: The patient is a 68-year-old female who presented to the ER on 07/02 with pelvic and leg pain, she was found to have an inferior and superior pubic fracture on the right. She was offered admission at that time but declined and went home. Two days later, she returned unable to ambulate and with significant pain. She was admitted to the hospital for pain control. For pain control, she was continued on her chronic methadone 10 mg every 6. We used prn oxycodone 5 mg and IV morphine . We then transition her to complete oral medications and had to increase her oxycodone dose to 15 mg every 4 to control her pain. She was evaluated and treated by physical therapy while admitted. PT though she was a good candidate for rehab services. The patient was also agreeable as she did not think she would be able to ambulate at home without assistance or take care of herself while recovering. She is anticoagulated for aortic valve replacement and her INR was checked daily. She became subtherapeutic and pharmacy took over management adjusting the dose as needed. She did develop acute kidney injury and was given light hydration due to her CHF diagnosis. Her acute kidney injury resolved. She was continued on her home meds for her chronic conditions. She was monitored on telemetry without any significant events. Disposition: [facility] Discharge Condition: vitals stable, tolerating oral diet, ambulating with assistance, pain controlled Discharge Instructions: heart healthy diet as tolerated, activity as tolerated, take medications as prescribed. Symptoms to report to physician include fever/ chills, chest pain, shortness of breath, abdominal pain, erythema, drainage/ discharge, leg/pelvic pain, inability to ambulate, or not improving as expected. Work with physical therapy at [facility]. INR checks at [facility]. Discharge Medications: Methadone 10 mg PO Q6H PRN Diltiazem [Cardizem CD] 240 mg PO DAILY #30 cap.cd DULoxetine [Cymbalta] 60 mg PO DAILY Carvedilol 12.5 mg PO BIDMEALS Digoxin [Lanoxin] 62.5 mcg PO DAILY Levothyroxine 25 mcg PO ACBREAKFAST Lisinopril 2.5 mg PO BID Multivitamin with Iron [Multivitamins with Iron] 1 tab PO DAILY Amiodarone HCl [Pacerone] 200 mg PO DAILY Polyethylene Glycol 3350 [MiraLAX] 17 gm PO DAILY Albuterol Sulfate [Proair Hfa] 2 puff IH QID PRN Bumetanide 2 mg PO DAILY Cholecalciferol (Vitamin D3) [Vitamin D3] 1,000 unit PO DAILY Fluticasone Propionate [Flovent HFA] 1 puff INH BID 07/05/19 [History] Ipratropium/Albuterol Sulfate [Iprat-Albut 0.5-3(2.5) MG/3 ML] 3 ml IH Q4H PRN Omeprazole 40 mg PO DAILY Vitamin E 400 unit PO DAILY Warfarin [Coumadin] 6 mg PO DAILY oxyCODONE 15 mg PO Q4H 7 Days Follow-up: 1. Dr. Lewis will follow patient while admitted to [facility]. - Discharge Data Discharge Date: 07/12/19 Discharge Disposition: DC/Tfer to [facility] 03 Condition: Stable - Discharge Diagnosis/Problem(s) (1) Subtherapeutic international normalized ratio (INR) SNOMED Code(s): 660562612, 312110707 ICD Code: R79.1 - ABNORMAL COAGULATION PROFILE Status: Acute (2) Ambulatory dysfunction SNOMED Code(s): 759716148 ICD Code: R26.2 - DIFFICULTY IN WALKING, NOT ELSEWHERE CLASSIFIED Status: Acute (3) Pelvic fracture SNOMED Code(s): 80131811 ICD Code: S32.9XXA - FRACTURE OF UNSP PARTS OF LUMBOSACRAL SPINE AND PELVIS, INIT Status: Acute (4) Acute coronary syndrome SNOMED Code(s): 213744859 ICD Code: I24.9 - ACUTE ISCHEMIC HEART DISEASE, UNSPECIFIED Status: Chronic (5) CHF (congestive heart failure) SNOMED Code(s): 10084465 ICD Code: I50.9 - HEART FAILURE, UNSPECIFIED Status: Chronic (6) Afib SNOMED Code(s): 27048829 ICD Code: I48.91 - UNSPECIFIED ATRIAL FIBRILLATION Status: Chronic Qualifiers: Atrial fibrillation type: paroxysmal Qualified Code(s): I48.0 - Paroxysmal atrial fibrillation (7) Chronic pain syndrome SNOMED Code(s): 394107424 ICD Code: G89.4 - CHRONIC PAIN SYNDROME Status: Chronic (8) Hx of aortic valve replacement SNOMED Code(s): 8515280081457, 648197931, 3641704883702 ICD Code: Z95.2 - PRESENCE OF PROSTHETIC HEART VALVE Status: Chronic (9) BENIGNO (acute kidney injury) SNOMED Code(s): 48978829, 77187700 ICD Code: N17.9 - ACUTE KIDNEY FAILURE, UNSPECIFIED Status: Acute - Patient Summary/Data Consults: Consultations 07/04/19 15:23 OT Evaluation and Treatment [CONS] Stat PT Evaluation and Treatment [CONS] Stat - Patient Instructions Diet: Heart Healthy Diet Activity: As Tolerated Showering/Bathing: May Shower Notify Provider of: Fever, Increased Pain, Swelling and Redness, Drainage, Nausea and/or Vomiting Other/Special Instructions: Additional symptoms include chest pain, shortness of breath, abdominal pain, increased pain. Will need PT/OT and daily INRs - Discharge Plan *PRESCRIPTION DRUG MONITORING PROGRAM REVIEWED*: No *COPY OF PRESCRIPTION DRUG MONITORING REPORT IN PATIENT IVET: No Prescriptions/Med Rec: Warfarin [Coumadin] 6 mg PO DAILY 14 Days #14 tab Home Medications: Home Meds Methadone 10 mg PO Q6H PRN 01/12/18 [History] Diltiazem [Cardizem CD] 240 mg PO DAILY #30 cap.cd 09/29/18 [Rx] DULoxetine [Cymbalta] 60 mg PO DAILY 10/10/18 [History] Carvedilol 12.5 mg PO BIDMEALS 11/08/18 [History] Digoxin [Lanoxin] 62.5 mcg PO DAILY 11/08/18 [History] Levothyroxine 25 mcg PO ACBREAKFAST 11/08/18 [History] Lisinopril 2.5 mg PO BID 11/08/18 [History] Multivitamin with Iron [Multivitamins with Iron] 1 tab PO DAILY 11/08/18 [ History] Amiodarone HCl [Pacerone] 200 mg PO DAILY 07/04/19 [History] Polyethylene Glycol 3350 [MiraLAX] 17 gm PO DAILY 07/04/19 [History] Albuterol Sulfate [Proair Hfa] 2 puff IH QID PRN 07/05/19 [History] Bumetanide 2 mg PO DAILY 07/05/19 [History] Cholecalciferol (Vitamin D3) [Vitamin D3] 1,000 unit PO DAILY 07/05/19 [History] Fluticasone Propionate [Flovent HFA] 1 puff INH BID 07/05/19 [History] Ipratropium/Albuterol Sulfate [Iprat-Albut 0.5-3(2.5) MG/3 ML] 3 ml IH Q4H PRN 07/05/19 [History] Omeprazole 40 mg PO DAILY 07/05/19 [History] Vitamin E 400 unit PO DAILY 07/05/19 [History] Warfarin [Coumadin] 6 mg PO DAILY 14 Days #14 tab 07/12/19 [Rx] oxyCODONE 15 mg PO Q4H 7 Days #0 tablet 07/12/19 [Rx] Referrals: Vira Aguilar MD [Resident] - 07/13/19 2:00 pm Magdiel Lewis MD [Physician] - - Discharge Summary/Plan Comment DC Time >30 min.: No - Patient Data Vitals - Most Recent: Last Vital Signs Temp 96.6 F 07/12/19 12:00 Pulse 64 07/12/19 12:00 Resp 16 07/12/19 12:00 BP 110/52 L 07/12/19 12:00 Pulse Ox 96 07/12/19 12:00 Weight - Most Recent: 75.977 kg I&O - Last 24 hours: Intake & Output 07/11/19 07/12/19 07/12/19 22:59 06:59 14:59 Intake Total 1020 630 Output Total 750 400 Balance 270 230 Lab Results - Last 24 hrs: Laboratory Results - last 24 hr 07/12/19 Range/Units 07:07 INR 1.52 Med Orders - Current: Current Medications Albuterol (Ventolin Hfa) 0 gm INH Q4H PRN PRN Reason: Wheezing Bumetanide (Bumex) 2 mg PO DAILY [facility] Last Admin: 07/12/19 08:15 Dose: 2 mg Carvedilol (Coreg) 12.5 mg PO BIDMEALS [facility] Last Admin: 07/12/19 08:16 Dose: 12.5 mg Digoxin (Lanoxin) 62.5 mcg PO BEDTIME [facility] Last Admin: 07/11/19 21:18 Dose: 62.5 mcg Diltiazem HCl (Cardizem Cd) 240 mg PO DAILY [facility] Last Admin: 07/12/19 08:14 Dose: 240 mg Duloxetine HCl (Cymbalta) 60 mg PO DAILY [facility] Last Admin: 07/12/19 08:15 Dose: 60 mg Fluticasone Propionate (Flovent Hfa 44 Mcg) 0 gm INH BIDRT [facility] Last Admin: 07/12/19 06:17 Dose: 2 puff Levothyroxine Sodium (Levothyroxine) 25 mcg PO ACBREAKFAST [facility] Last Admin: 07/12/19 07:21 Dose: 25 mcg Lisinopril (Prinivil) 2.5 mg PO BID [facility] Last Admin: 07/12/19 08:15 Dose: 2.5 mg Methadone HCl (Methadone) 10 mg PO Q6H [facility] Last Admin: 07/12/19 09:41 Dose: 10 mg Omeprazole (Omeprazole) 40 mg PO ACBREAKFAST [facility] Last Admin: 07/12/19 07:22 Dose: 40 mg Ondansetron HCl (Zofran) 4 mg IVPUSH Q4H PRN PRN Reason: Nausea/Vomiting Last Admin: 07/10/19 01:59 Dose: 4 mg Oxycodone HCl (Oxycodone) 15 mg PO Q4H [facility] Last Admin: 07/12/19 11:40 Dose: 15 mg Multivitamin With Iron [Multivitamins With Iron] 1 each PO DAILY [facility] Last Admin: 07/12/19 09:44 Dose: Not Given Polyethylene Glycol (Miralax) 17 gm PO DAILY [facility] Last Admin: 07/12/19 08:14 Dose: 17 gm Senna/Docusate Sodium (Senna Plus) 1 tab PO BID [facility] Last Admin: 07/12/19 08:17 Dose: Not Given Warfarin Sodium (Coumadin Ask) 1 each PO DAILY@2100 [facility] Last Admin: 07/11/19 21:19 Dose: 1 each Warfarin Sodium (Coumadin) 6 mg PO DAILY@2100 ONE Stop: 07/12/19 21:01 Discontinued Medications Digoxin (Lanoxin) 62.5 mcg PO DAILY [facility] Last Admin: 07/04/19 22:10 Dose: 62.5 mcg Docusate Sodium (Colace) 100 mg PO BID PRN PRN Reason: Constipation Last Admin: 07/08/19 08:46 Dose: 100 mg Sodium Chloride (Normal Saline) 1,000 mls @ 100 mls/hr IV ASDIRECTED [facility] Stop: 07/09/19 20:29 Last Admin: 07/09/19 10:50 Dose: 100 mls/hr Methadone HCl (Methadone) 10 mg PO DAILY [facility] Morphine Sulfate (Morphine) 4 mg IVPUSH Q4H PRN PRN Reason: Pain (severe 7-10) Last Admin: 07/08/19 08:31 Dose: 4 mg Morphine Sulfate (Morphine) 2 mg IVPUSH Q4H PRN PRN Reason: Pain Last Admin: 07/09/19 12:12 Dose: 2 mg Non-Formulary Medication (Lisinopril) 2.5 mg PO BID [facility] Last Admin: 07/04/19 21:07 Dose: Not Given Omeprazole (Omeprazole) 40 mg PO DAILY [facility] Last Admin: 07/05/19 08:58 Dose: 40 mg Oxycodone HCl (Oxycodone) 5 mg PO Q4H PRN PRN Reason: Pain (moderate 4-6) Last Admin: 07/08/19 08:41 Dose: 5 mg Oxycodone HCl (Oxycodone) 10 mg PO Q4H PRN PRN Reason: Pain (moderate 4-6) Last Admin: 07/08/19 12:25 Dose: 10 mg Oxycodone HCl (Oxycodone) 15 mg PO Q4H PRN PRN Reason: Pain (moderate 4-6) Last Admin: 07/11/19 04:32 Dose: 15 mg Pantoprazole Sodium (Protonix) 40 mg PO ONETIME ONE Stop: 07/07/19 22:19 Last Admin: 07/07/19 22:33 Dose: 40 mg Polyethylene Glycol (Miralax) 17 gm PO DAILY [facility] Warfarin Sodium (Coumadin) 4 mg PO SuTuWeThSa@2100 [facility] Last Admin: 07/07/19 20:15 Dose: 4 mg Warfarin Sodium (Coumadin) 3 mg PO MoWeFr@1400 [facility] Last Admin: 07/04/19 22:09 Dose: 3 mg Warfarin Sodium (Coumadin) 3 mg PO MoFr@2100 [facility] Warfarin Sodium (Coumadin) 5 mg PO ONETIME ONE Stop: 07/06/19 21:01 Last Admin: 07/06/19 21:08 Dose: 5 mg Warfarin Sodium (Coumadin) 4 mg PO DAILY@2100 ONE Stop: 07/08/19 21:01 Last Admin: 07/08/19 20:58 Dose: 4 mg Warfarin Sodium (Coumadin) 3 mg PO DAILY@2100 ONE Stop: 07/09/19 21:01 Last Admin: 07/09/19 21:11 Dose: 3 mg Warfarin Sodium (Coumadin) 4 mg PO DAILY@2099 [facility] Last Admin: 07/11/19 21:16 Dose: 4 mg <Santy Aguilera - Last Filed: 07/12/19 17:55> Discharge Summary - Hospital Course HPI Initial Comments: I have examined the patient independently of medical transcription, Dr. Chelly DO. I have discussed the case with her. I have reviewed and agree with the plan of care as outlined for the patient by her. Please see orders. - Patient Summary/Data Consults: Consultations 07/04/19 15:23 OT Evaluation and Treatment [CONS] Stat PT Evaluation and Treatment [CONS] Stat - Patient Data Vitals - Most Recent: Last Vital Signs Temp 35.9 C 07/12/19 12:00 Pulse 64 07/12/19 12:00 Resp 16 07/12/19 12:00 BP 110/52 L 07/12/19 12:00 Pulse Ox 96 07/12/19 12:00 I&O - Last 24 hours: Intake & Output 07/12/19 07/12/19 07/12/19 06:59 14:59 22:59 Intake Total 630 700 Output Total 400 500 Balance 230 200 Lab Results - Last 24 hrs: Laboratory Results - last 24 hr 07/12/19 Range/Units 07:07 INR 1.52 Med Orders - Current: Current Medications Discontinued Medications Albuterol (Ventolin Hfa) 0 gm INH Q4H PRN PRN Reason: Wheezing Bumetanide (Bumex) 2 mg PO DAILY [facility] Last Admin: 07/12/19 08:15 Dose: 2 mg Carvedilol (Coreg) 12.5 mg PO BIDMEALS [facility] Last Admin: 07/12/19 08:16 Dose: 12.5 mg Digoxin (Lanoxin) 62.5 mcg PO DAILY [facility] Last Admin: 07/04/19 22:10 Dose: 62.5 mcg Digoxin (Lanoxin) 62.5 mcg PO BEDTIME [facility] Last Admin: 07/11/19 21:18 Dose: 62.5 mcg Diltiazem HCl (Cardizem Cd) 240 mg PO DAILY [facility] Last Admin: 07/12/19 08:14 Dose: 240 mg Docusate Sodium (Colace) 100 mg PO BID PRN PRN Reason: Constipation Last Admin: 07/08/19 08:46 Dose: 100 mg Duloxetine HCl (Cymbalta) 60 mg PO DAILY [facility] Last Admin: 07/12/19 08:15 Dose: 60 mg Fluticasone Propionate (Flovent Hfa 44 Mcg) 0 gm INH BIDRT [facility] Last Admin: 07/12/19 06:17 Dose: 2 puff Sodium Chloride (Normal Saline) 1,000 mls @ 100 mls/hr IV ASDIRECTED [facility] Stop: 07/09/19 20:29 Last Admin: 07/09/19 10:50 Dose: 100 mls/hr Levothyroxine Sodium (Levothyroxine) 25 mcg PO ACBREAKFAST [facility] Last Admin: 07/12/19 07:21 Dose: 25 mcg Lisinopril (Prinivil) 2.5 mg PO BID [facility] Last Admin: 07/12/19 08:15 Dose: 2.5 mg Methadone HCl (Methadone) 10 mg PO DAILY [facility] Methadone HCl (Methadone) 10 mg PO Q6H [facility] Last Admin: 07/12/19 09:41 Dose: 10 mg Morphine Sulfate (Morphine) 4 mg IVPUSH Q4H PRN PRN Reason: Pain (severe 7-10) Last Admin: 07/08/19 08:31 Dose: 4 mg Morphine Sulfate (Morphine) 2 mg IVPUSH Q4H PRN PRN Reason: Pain Last Admin: 07/09/19 12:12 Dose: 2 mg Non-Formulary Medication (Lisinopril) 2.5 mg PO BID [facility] Last Admin: 07/04/19 21:07 Dose: Not Given Omeprazole (Omeprazole) 40 mg PO DAILY [facility] Last Admin: 07/05/19 08:58 Dose: 40 mg Omeprazole (Omeprazole) 40 mg PO ACBREAKFAST [facility] Last Admin: 07/12/19 07:22 Dose: 40 mg Ondansetron HCl (Zofran) 4 mg IVPUSH Q4H PRN PRN Reason: Nausea/Vomiting Last Admin: 07/10/19 01:59 Dose: 4 mg Oxycodone HCl (Oxycodone) 5 mg PO Q4H PRN PRN Reason: Pain (moderate 4-6) Last Admin: 07/08/19 08:41 Dose: 5 mg Oxycodone HCl (Oxycodone) 10 mg PO Q4H PRN PRN Reason: Pain (moderate 4-6) Last Admin: 07/08/19 12:25 Dose: 10 mg Oxycodone HCl (Oxycodone) 15 mg PO Q4H PRN PRN Reason: Pain (moderate 4-6) Last Admin: 07/11/19 04:32 Dose: 15 mg Oxycodone HCl (Oxycodone) 15 mg PO Q4H [facility] Last Admin: 07/12/19 11:40 Dose: 15 mg Pantoprazole Sodium (Protonix) 40 mg PO ONETIME ONE Stop: 07/07/19 22:19 Last Admin: 07/07/19 22:33 Dose: 40 mg Multivitamin With Iron [Multivitamins With Iron] 1 each PO DAILY [facility] Last Admin: 07/12/19 09:44 Dose: Not Given Polyethylene Glycol (Miralax) 17 gm PO DAILY [facility] Polyethylene Glycol (Miralax) 17 gm PO DAILY [facility] Last Admin: 07/12/19 08:14 Dose: 17 gm Senna/Docusate Sodium (Senna Plus) 1 tab PO BID [facility] Last Admin: 07/12/19 08:17 Dose: Not Given Warfarin Sodium (Coumadin) 4 mg PO SuTuWeThSa@2100 [facility] Last Admin: 07/07/19 20:15 Dose: 4 mg Warfarin Sodium (Coumadin) 3 mg PO MoWeFr@1400 [facility] Last Admin: 07/04/19 22:09 Dose: 3 mg Warfarin Sodium (Coumadin) 3 mg PO MoFr@2100 [facility] Warfarin Sodium (Coumadin) 5 mg PO ONETIME ONE Stop: 07/06/19 21:01 Last Admin: 07/06/19 21:08 Dose: 5 mg Warfarin Sodium (Coumadin Ask) 1 each PO DAILY@2100 [facility] Last Admin: 07/11/19 21:19 Dose: 1 each Warfarin Sodium (Coumadin) 4 mg PO DAILY@2099 Stop: 07/08/19 21:01 Last Admin: 07/08/19 20:58 Dose: 4 mg Warfarin Sodium (Coumadin) 3 mg PO DAILY@2099 Stop: 07/09/19 21:01 Last Admin: 07/09/19 21:11 Dose: 3 mg Warfarin Sodium (Coumadin) 4 mg PO DAILY@2099 [facility] Last Admin: 07/11/19 21:16 Dose: 4 mg Warfarin Sodium (Coumadin) 6 mg PO DAILY@2099 Stop: 07/12/19 21:01
[2019-07-12] MEDS ORDERED: Warfarin 2 MG Tab PO ONE (21:00)
== END 2019-07-12 13:30 | DRG 536 ==
LOC: MW.ED 14:13 → MW.MS 15:25
PROVIDERS: ADMIT Internal Medicine; ATTEND Internal Medicine
DX: S32.591A Other specified fracture of right pubis, initial encounter for closed fracture (principal); I24.9 Acute ischemic heart disease, unspecified; S32.599D Other specified fracture of unspecified pubis, subsequent encounter for fracture with routine healing; X58.XXXD Exposure to other specified factors, subsequent encounter; N17.9 Acute kidney failure, unspecified; Z79.890 Hormone replacement therapy; I50.9 Heart failure, unspecified; I11.0 Hypertensive heart disease with heart failure; I48.91 Unspecified atrial fibrillation; H54.7 Unspecified visual loss; K21.9 Gastro-esophageal reflux disease without esophagitis; M54.9 Dorsalgia, unspecified; F41.9 Anxiety disorder, unspecified; M19.90 Unspecified osteoarthritis, unspecified site; F32.9 Major depressive disorder, single episode, unspecified; G25.81 Restless legs syndrome; F17.210 Nicotine dependence, cigarettes, uncomplicated; E03.9 Hypothyroidism, unspecified; F17.200 Nicotine dependence, unspecified, uncomplicated; R79.1 Abnormal coagulation profile; R26.2 Difficulty in walking, not elsewhere classified; I48.0 Paroxysmal atrial fibrillation; G89.4 Chronic pain syndrome; Z85.3 Personal history of malignant neoplasm of breast; Z86.73 Personal history of transient ischemic attack (TIA), and cerebral infarction without residual deficits; Z79.01 Long term (current) use of anticoagulants; Z95.2 Presence of prosthetic heart valve; Z79.899 Other long term (current) drug therapy; Z90.49 Acquired absence of other specified parts of digestive tract
CPT/HCPCS: 36415; 80048; 80053; 81001; 85025; 85610; 94640; 97162-GP; 97530-GP; 99283; 99284; A9270-GY; J2270; J2405; J7040

== ENCOUNTER 2019-08-03 10:15 | Observation (INO) | payer MEDICARE, OTHER ==
[2019-08-03] MEDS ORDERED: Sodium Chloride 0.9% 10 ML Syringe FLUSH PRN (10:26)
[2019-08-03] MEDS ORDERED: Alum Hydrox/Mag Hydrox/Simeth 15 ML, Lidocaine 2% 5 ML PO ONE ×2 (10:26)
[2019-08-03] MEDS ORDERED: Sodium Chloride 0.9% 2.5 ML Syringe FLUSH PRN (10:26)
--- NOTE | 2019-08-03 10:28 | EDM.PDOC ---
ED HPI GENERAL MEDICAL PROBLEM - General Chief Complaint: Abdominal Pain Stated Complaint: NAUSEA,ABD PAIN Time Seen by Provider: 08/03/19 10:27 Source of Information: Reports: Patient History Limitations: Reports: No Limitations - History of Present Illness INITIAL COMMENTS - FREE TEXT/NARRATIVE: HISTORY AND PHYSICAL: History of present illness: Patient is a 68-year-old female well known to the ED presents via EMS for abdominal pain. Patient states she was feeling nauseous last night, this morning developed abdominal pain. She states she vomited once after taking some pepto bismol. She states feeling a little short of breath although this is chronic and she does use oxygen at home. Denies chest pain, fevers, chills, diarrhea. Past surgical history of gastric bypass. 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 Review of systems: As per history of present illness and below otherwise all systems reviewed and negative. Past medical history: As per history of present illness and as reviewed below otherwise noncontributory. Surgical history: As per history of present illness and as reviewed below otherwise noncontributory. Social history: No reported history of drug or alcohol abuse. Family history: As per history of present illness and as reviewed below otherwise noncontributory. Physical exam: General: Patient sitting comfortably in no acute distress and nontoxic appearing HEENT: Atraumatic, normocephalic, pupils reactive, negative for conjunctival pallor or scleral icterus, mucous membranes moist, throat clear, neck supple, nontender, trachea midline. No meningeal signs. Lungs: Clear to auscultation, breath sounds equal bilaterally, chest nontender. Heart: S1S2, regular, negative for clicks, rubs, or overt murmur. Abdomen: Epigastric abdominal tenderness. Soft, nondistended. Negative for masses or hepatosplenomegaly. Negative for costovertebral tenderness. No rigidity, rebound, guarding. Pelvis: Stable nontender. Genitourinary: Deferred. Rectal: Deferred. Extremities: Atraumatic, negative for cords or calf pain. Neurovascular unremarkable. Neuro: Awake, alert, oriented. Cranial nerves II through XII unremarkable. Cerebellum unremarkable. Motor and sensory unremarkable throughout. Exam nonfocal. Notes: Patient has had multiple episodes of vomiting in the ED. Subtherapeutic INR, advised to follow up with PCP on this. discussed with Dr. Dukes he advises patient be admitted to medicine and he will consult on the patient. Diagnostics: CBC, CMP, Troponin, lipase, UA, BNP, EKG, CXR, CT abdomen pelvis Therapeutics: GI cocktail 4mg Zofran IV 25mg Phenergan NG Tube Prescriptions: Impression: Small bowel obstruction Plan: Patient will be admitted to Dr. Quinn for observation for small bowel obstruction Definitive disposition and diagnosis as appropriate pending reevaluation and review of above. Abdominal Pain Score (Numeric/FACES): 6 - Related Data Allergies Allergy/AdvReac Type Severity Reaction Status Date / Time No Known Allergies Allergy Verified 08/03/19 13:54 Home Meds: Home Meds Methadone 10 mg PO Q6H PRN 01/12/18 [History] Diltiazem [Cardizem CD] 240 mg PO DAILY #30 cap.cd 09/29/18 [Rx] DULoxetine [Cymbalta] 60 mg PO DAILY 10/10/18 [History] Carvedilol 12.5 mg PO BIDMEALS 11/08/18 [History] Digoxin [Lanoxin] 62.5 mcg PO DAILY 11/08/18 [History] Levothyroxine 25 mcg PO ACBREAKFAST 11/08/18 [History] Lisinopril 2.5 mg PO BID 11/08/18 [History] Multivitamin with Iron [Multivitamins with Iron] 1 tab PO DAILY 11/08/18 [ History] Amiodarone HCl [Pacerone] 200 mg PO DAILY 07/04/19 [History] Polyethylene Glycol 3350 [MiraLAX] 17 gm PO DAILY 07/04/19 [History] Albuterol Sulfate [Proair Hfa] 2 puff IH QID PRN 07/05/19 [History] Bumetanide 2 mg PO DAILY 07/05/19 [History] Cholecalciferol (Vitamin D3) [Vitamin D3] 1,000 unit PO DAILY 07/05/19 [History] Fluticasone Propionate [Flovent HFA] 1 puff INH BID 07/05/19 [History] Ipratropium/Albuterol Sulfate [Iprat-Albut 0.5-3(2.5) MG/3 ML] 3 ml IH Q4H PRN 07/05/19 [History] Omeprazole 40 mg PO DAILY 07/05/19 [History] Vitamin E 400 unit PO DAILY 07/05/19 [History] Warfarin [Coumadin] 6 mg PO DAILY 14 Days #14 tab 07/12/19 [Rx] oxyCODONE 15 mg PO Q4H 7 Days #0 tablet 07/12/19 [Rx] Past Medical History HEENT History: Reports: Impaired Vision, Other (See Below) Other HEENT History: no teeth or dentures Cardiovascular History: Reports: Afib, Heart Failure, Heart Valve Replacement, Hypertension Other Cardiovascular History: mitral valve regurgitation Respiratory History: Reports: SOB Gastrointestinal History: Reports: GERD Other Gastrointestinal History: acid reflux Genitourinary History: Reports: None 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: Musculoskeletal History: Reports: Arthritis, Back Pain, Chronic, Other (See Below) Other Musculoskeletal History: scoliosis, bulging discs, carpal tunnel, restless leg Neurological History: Reports: TIA Psychiatric History: Reports: Anxiety, Depression Endocrine/Metabolic History: Reports: None Hematologic History: Reports: Anticoagulation Therapy Immunologic History: Reports: None Oncologic (Cancer) History: Reports: Breast Other Oncologic History: right breast ca Dermatologic History: Reports: None - Infectious Disease History Infectious Disease History: Reports: None - Past Surgical History Head Surgeries/Procedures: Reports: None HEENT Surgical History: Reports: None Cardiovascular Surgical History: Reports: Valve Replacement Respiratory Surgical History: Reports: None GI Surgical History: Reports: Appendectomy, Bariatric Procedure, Cholecystectomy , Colonoscopy, Other (See Below) Female Surgical History: Reports: Tubal Ligation, Other (See Below) Other Female Surgeries/Procedures: right breast lumpectomy Endocrine Surgical History: Reports: None Neurological Surgical History: Reports: None Musculoskeletal Surgical History: Reports: Carpal Tunnel, Other (See Below) Oncologic Surgical History: Reports: Lumpectomy Dermatological Surgical History: Reports: None Social & Family History - Family History Family Medical History: Noncontributory - Caffeine Use Caffeine Use: Reports: Coffee, Tea Caffeine Use Comment: 3-4 cups a day - Living Situation & Occupation Living situation: Reports: , with Family Occupation: Retired ED ROS GENERAL - Review of Systems Review Of Systems: ROS reveals no pertinent complaints other than HPI. ED EXAM, GI/ABD - Physical Exam Exam: See Below (see dictation) Course - Vital Signs Last Recorded V/S: Last Vital Signs Temp 96.2 F 08/03/19 10:15 Pulse 72 08/03/19 10:15 Resp 18 08/03/19 10:15 BP 125/68 08/03/19 10:15 Pulse Ox 96 08/03/19 10:15 - Orders/Labs/Meds Orders: Active Orders 24 hr Category Date Time Status EKG Documentation Completion [RC] STAT Care 08/03/19 10:25 Active CULTURE URINE [RM] Stat Lab 08/03/19 12:48 Received Sodium Chloride 0.9% [Normal Saline] 1,000 ml Med 08/03/19 14:42 Active IV STAT Sodium Chloride 0.9% [Saline Flush] Med 08/03/19 10:26 Active 10 ml FLUSH ASDIRECTED PRN Sodium Chloride 0.9% [Saline Flush] Med 08/03/19 10:26 Active 2.5 ml FLUSH ASDIRECTED PRN Saline Lock Insert [OM.PC] Stat Oth 08/03/19 10:25 Ordered Medication Orders Sodium Chloride (Normal Saline) 1,000 mls @ 125 mls/hr IV STAT ONE Stop: 08/03/19 22:41 Last Admin: 08/03/19 15:16 Dose: 125 mls/hr Sodium Chloride (Saline Flush) 10 ml FLUSH ASDIRECTED PRN PRN Reason: Keep Vein Open Sodium Chloride (Saline Flush) 2.5 ml FLUSH ASDIRECTED PRN PRN Reason: Keep Vein Open Labs: Laboratory Tests 08/03/19 08/03/19 08/03/19 Range/Units 10:30 10:30 10:30 WBC 10.01 (4.0-11.0) K/uL RBC 4.53 (4.30-5.90) M/uL Hgb 13.2 (12.0-16.0) g/dL Hct 41.6 (36.0-46.0) % MCV 91.8 (80.0-98.0) fL MCH 29.1 (27.0-32.0) pg MCHC 31.7 (31.0-37.0) g/dL RDW Std Deviation 47.8 (28.0-62.0) fl RDW Coeff of Shaun 14 (11.0-15.0) % Plt Count 276 (150-400) K/uL MPV 9.50 (7.40-12.00) fL Neut % (Auto) 75.6 (48.0-80.0) % Lymph % (Auto) 17.6 (16.0-40.0) % [place] % (Auto) 5.5 (0.0-15.0) % Eos % (Auto) 1.1 (0.0-7.0) % Baso % (Auto) 0.2 (0.0-1.5) % Neut # (Auto) 7.6 H (1.4-5.7) K/uL Lymph # (Auto) 1.8 (0.6-2.4) K/uL [place] # (Auto) 0.6 (0.0-0.8) K/uL Eos # (Auto) 0.1 (0.0-0.7) K/uL Baso # (Auto) 0.0 (0.0-0.1) K/uL Nucleated RBC % 0.0 /100WBC Nucleated RBCs # 0 K/uL INR 1.38 Sodium 140 (136-145) mmol/L Potassium 4.1 (3.5-5.1) mmol/L Chloride 101 (98-107) mmol/L Carbon Dioxide 27.9 (21.0-32.0) mmol/L BUN 19 H (7.0-18.0) mg/dL Creatinine 1.1 H (0.6-1.0) mg/dL Est Cr Clr Drug Dosing TNP Estimated GFR (MDRD) 49.4 ml/min Glucose 149 H (74-106) mg/dL Calcium 9.8 (8.5-10.1) mg/dL Total Bilirubin 0.5 (0.2-1.0) mg/dL AST 21 (15-37) IU/L ALT 20 (14-63) IU/L Alkaline Phosphatase 152 H (46-116) U/L Troponin I < 0.050 (0.000-0.056) ng/mL B-Natriuretic Peptide (<100) PG/ML Total Protein 7.9 (6.4-8.2) g/dL Albumin 3.7 (3.4-5.0) g/dL Globulin 4.2 H (2.6-4.0) g/dL Albumin/Globulin Ratio 0.9 (0.9-1.6) Lipase 195 (73-393) U/L TSH 3rd Generation (0.36-3.74) uIU/mL Urine Color Urine Appearance Urine pH (5.0-8.0) Ur Specific [place] (1.001-1.035) Urine Protein (NEGATIVE) mg/dL Urine Glucose (UA) (NEGATIVE) mg/dL Urine Ketones (NEGATIVE) mg/dL Urine Occult Blood (NEGATIVE) Urine Nitrite (NEGATIVE) Urine Bilirubin (NEGATIVE) Urine Ictotest Urine Urobilinogen (<2.0) EU/dL Ur Leukocyte Esterase (NEGATIVE) Urine RBC (0-2/HPF) Urine WBC (0-5/HPF) Ur Epithelial Cells (NONE-FEW) Urine Bacteria (NEGATIVE) Urine Opiates Screen (NEGATIVE) Ur Oxycodone Screen (NEGATIVE) Urine Methadone Screen (NEGATIVE) Ur Barbiturates Screen (NEGATIVE) Ur Phencyclidine Scrn (NEGATIVE) Ur Amphetamine Screen (NEGATIVE) U Methamphetamines Scrn (NEGATIVE) U Benzodiazepines Scrn (NEGATIVE) U Cocaine Metab Screen (NEGATIVE) U Marijuana (THC) Screen (NEGATIVE) Ethyl Alcohol mg/dL 08/03/19 08/03/19 08/03/19 Range/Units 10:30 10:30 12:48 WBC (4.0-11.0) K/uL RBC (4.30-5.90) M/uL Hgb (12.0-16.0) g/dL Hct (36.0-46.0) % MCV (80.0-98.0) fL MCH (27.0-32.0) pg MCHC (31.0-37.0) g/dL RDW Std Deviation (28.0-62.0) fl RDW Coeff of Shaun (11.0-15.0) % Plt Count (150-400) K/uL MPV (7.40-12.00) fL Neut % (Auto) (48.0-80.0) % Lymph % (Auto) (16.0-40.0) % [place] % (Auto) (0.0-15.0) % Eos % (Auto) (0.0-7.0) % Baso % (Auto) (0.0-1.5) % Neut # (Auto) (1.4-5.7) K/uL Lymph # (Auto) (0.6-2.4) K/uL [place] # (Auto) (0.0-0.8) K/uL Eos # (Auto) (0.0-0.7) K/uL Baso # (Auto) (0.0-0.1) K/uL Nucleated RBC % /100WBC Nucleated RBCs # K/uL INR Sodium (136-145) mmol/L Potassium (3.5-5.1) mmol/L Chloride (98-107) mmol/L Carbon Dioxide (21.0-32.0) mmol/L BUN (7.0-18.0) mg/dL Creatinine (0.6-1.0) mg/dL Est Cr Clr Drug Dosing Estimated GFR (MDRD) ml/min Glucose (74-106) mg/dL Calcium (8.5-10.1) mg/dL Total Bilirubin (0.2-1.0) mg/dL AST (15-37) IU/L ALT (14-63) IU/L Alkaline Phosphatase (46-116) U/L Troponin I (0.000-0.056) ng/mL B-Natriuretic Peptide 221 H (<100) PG/ML Total Protein (6.4-8.2) g/dL Albumin (3.4-5.0) g/dL Globulin (2.6-4.0) g/dL Albumin/Globulin Ratio (0.9-1.6) Lipase (73-393) U/L TSH 3rd Generation 4.36 H (0.36-3.74) uIU/mL Urine Color YELLOW Urine Appearance SLT CLOUDY Urine pH 7.5 (5.0-8.0) Ur Specific [place] 1.015 (1.001-1.035) Urine Protein 30 H (NEGATIVE) mg/dL Urine Glucose (UA) NEGATIVE (NEGATIVE) mg/dL Urine Ketones TRACE H (NEGATIVE) mg/dL Urine Occult Blood TRACE-INTACT H (NEGATIVE) Urine Nitrite NEGATIVE (NEGATIVE) Urine Bilirubin SMALL H (NEGATIVE) Urine Ictotest NEGATIVE Urine Urobilinogen 4.0 H (<2.0) EU/dL Ur Leukocyte Esterase TRACE H (NEGATIVE) Urine RBC 0-3 (0-2/HPF) Urine WBC 0-2 (0-5/HPF) Ur Epithelial Cells FEW (NONE-FEW) Urine Bacteria FEW (NEGATIVE) Urine Opiates Screen (NEGATIVE) Ur Oxycodone Screen (NEGATIVE) Urine Methadone Screen (NEGATIVE) Ur Barbiturates Screen (NEGATIVE) Ur Phencyclidine Scrn (NEGATIVE) Ur Amphetamine Screen (NEGATIVE) U Methamphetamines Scrn (NEGATIVE) U Benzodiazepines Scrn (NEGATIVE) U Cocaine Metab Screen (NEGATIVE) U Marijuana (THC) Screen (NEGATIVE) Ethyl Alcohol < 3.0 mg/dL 08/03/19 Range/Units 12:48 WBC (4.0-11.0) K/uL RBC (4.30-5.90) M/uL Hgb (12.0-16.0) g/dL Hct (36.0-46.0) % MCV (80.0-98.0) fL MCH (27.0-32.0) pg MCHC (31.0-37.0) g/dL RDW Std Deviation (28.0-62.0) fl RDW Coeff of Shaun (11.0-15.0) % Plt Count (150-400) K/uL MPV (7.40-12.00) fL Neut % (Auto) (48.0-80.0) % Lymph % (Auto) (16.0-40.0) % [place] % (Auto) (0.0-15.0) % Eos % (Auto) (0.0-7.0) % Baso % (Auto) (0.0-1.5) % Neut # (Auto) (1.4-5.7) K/uL Lymph # (Auto) (0.6-2.4) K/uL [place] # (Auto) (0.0-0.8) K/uL Eos # (Auto) (0.0-0.7) K/uL Baso # (Auto) (0.0-0.1) K/uL Nucleated RBC % /100WBC Nucleated RBCs # K/uL INR Sodium (136-145) mmol/L Potassium (3.5-5.1) mmol/L Chloride (98-107) mmol/L Carbon Dioxide (21.0-32.0) mmol/L BUN (7.0-18.0) mg/dL Creatinine (0.6-1.0) mg/dL Est Cr Clr Drug Dosing Estimated GFR (MDRD) ml/min Glucose (74-106) mg/dL Calcium (8.5-10.1) mg/dL Total Bilirubin (0.2-1.0) mg/dL AST (15-37) IU/L ALT (14-63) IU/L Alkaline Phosphatase (46-116) U/L Troponin I (0.000-0.056) ng/mL B-Natriuretic Peptide (<100) PG/ML Total Protein (6.4-8.2) g/dL Albumin (3.4-5.0) g/dL Globulin (2.6-4.0) g/dL Albumin/Globulin Ratio (0.9-1.6) Lipase (73-393) U/L TSH 3rd Generation (0.36-3.74) uIU/mL Urine Color Urine Appearance Urine pH (5.0-8.0) Ur Specific [place] (1.001-1.035) Urine Protein (NEGATIVE) mg/dL Urine Glucose (UA) (NEGATIVE) mg/dL Urine Ketones (NEGATIVE) mg/dL Urine Occult Blood (NEGATIVE) Urine Nitrite (NEGATIVE) Urine Bilirubin (NEGATIVE) Urine Ictotest Urine Urobilinogen (<2.0) EU/dL Ur Leukocyte Esterase (NEGATIVE) Urine RBC (0-2/HPF) Urine WBC (0-5/HPF) Ur Epithelial Cells (NONE-FEW) Urine Bacteria (NEGATIVE) Urine Opiates Screen NEGATIVE (NEGATIVE) Ur Oxycodone Screen POSITIVE (NEGATIVE) Urine Methadone Screen POSITIVE (NEGATIVE) Ur Barbiturates Screen NEGATIVE (NEGATIVE) Ur Phencyclidine Scrn NEGATIVE (NEGATIVE) Ur Amphetamine Screen NEGATIVE (NEGATIVE) U Methamphetamines Scrn NEGATIVE (NEGATIVE) U Benzodiazepines Scrn NEGATIVE (NEGATIVE) U Cocaine Metab Screen NEGATIVE (NEGATIVE) U Marijuana (THC) Screen NEGATIVE (NEGATIVE) Ethyl Alcohol mg/dL Meds: Medications Generic Name Dose Route Start Last Admin Trade Name Freq PRN Reason Stop Dose Admin Sodium Chloride 1,000 mls @ 125 mls/hr 08/03/19 14:42 08/03/19 15:16 Normal Saline IV 08/03/19 22:41 125 mls/hr STAT ONE Administration Sodium Chloride 10 ml 08/03/19 10:26 Saline Flush FLUSH ASDIRECTED PRN Keep Vein Open Sodium Chloride 2.5 ml 08/03/19 10:26 Saline Flush FLUSH ASDIRECTED PRN Keep Vein Open Discontinued Medications Generic Name Dose Route Start Last Admin Trade Name Shannon PRN Reason Stop Dose Admin Benzocaine Confirm 08/03/19 14:58 08/03/19 15:19 Hurricaine One 20% Administered 08/03/19 14:59 Not Given Dose 2 each MUCMEM .STK-MED ONE Benzocaine 2 each 08/03/19 15:15 08/03/19 15:16 Hurricaine One 20% MUCMEM 08/03/19 15:16 2 each ONETIME ONE Administration Al Hydroxide/Mg Hydroxide 15 0 ml 08/03/19 10:26 08/03/19 11:05 ml/ Lidocaine HCl 5 ml PO 08/03/19 10:27 1 each ONETIME ONE Administration Ondansetron HCl 4 mg 08/03/19 11:24 08/03/19 11:45 Zofran IVPUSH 08/03/19 11:25 4 mg ONETIME ONE Administration Ondansetron HCl 4 mg 08/03/19 13:01 08/03/19 13:12 Zofran IVPUSH 08/03/19 13:02 Not Given ONETIME ONE Promethazine HCl 25 mg 08/03/19 13:05 08/03/19 13:12 Phenergan IM 08/03/19 13:06 25 mg ONETIME ONE Administration Promethazine HCl Confirm 08/03/19 13:06 08/03/19 13:13 Phenergan Administered 08/03/19 13:07 Not Given Dose 25 mg .ROUTE .STK-MED ONE Departure - Departure Time of Disposition: 15:30 Disposition: Refer to Observation Condition: Good Clinical Impression: Small bowel obstruction - Discharge Information Referrals: Magdiel Lewis MD [Primary Care Provider] - Forms: ED Department Discharge - My Orders Last 24 Hours: My Active Orders 08/03/19 10:25 EKG Documentation Completion [RC] STAT Saline Lock Insert [OM.PC] Stat 08/03/19 10:26 Sodium Chloride 0.9% [Saline Flush] 10 ml FLUSH ASDIRECTED PRN Sodium Chloride 0.9% [Saline Flush] 2.5 ml FLUSH ASDIRECTED PRN 08/03/19 12:48 CULTURE URINE [RM] Stat 08/03/19 14:42 Sodium Chloride 0.9% [Normal Saline] 1,000 ml IV STAT - Assessment/Plan Last 24 Hours: My Active Orders 08/03/19 10:25 EKG Documentation Completion [RC] STAT Saline Lock Insert [OM.PC] Stat 08/03/19 10:26 Sodium Chloride 0.9% [Saline Flush] 10 ml FLUSH ASDIRECTED PRN Sodium Chloride 0.9% [Saline Flush] 2.5 ml FLUSH ASDIRECTED PRN 08/03/19 12:48 CULTURE URINE [RM] Stat 08/03/19 14:42 Sodium Chloride 0.9% [Normal Saline] 1,000 ml IV STAT
[2019-08-03 11:09] LABS: BLOOD UREA NITROGEN,BUN 19 mg/dL (7.0-18.0); CARBON DIOXIDE,CO2 27.9 mmol/L (21.0-32.0); CHLORIDE,CL 101 mmol/L (98-107); GLUCOSE RANDOM 149 mg/dL (74-106); LIPASE 195 U/L (73-393); POTASSIUM,K 4.1 mmol/L (3.5-5.1); SODIUM,NA 140 mmol/L (136-145)
[2019-08-03] MEDS ORDERED: Ondansetron 4 MG/2 ML SDV IVPUSH ONE ×2 (11:24→13:01)
--- NOTE | 2019-08-03 11:40 | CR ---
Chest: Frontal view of the chest was obtained. Comparison: Prior chest x-ray of 11/20/18. Stable area of scarring is seen within the left midlung. Central lung markings are mildly increased most likely due to mild chronic pulmonary vascular congestion. Heart is slightly prominent. Bony structures are grossly intact. Sternotomy is noted with prosthetic heart valve. Impression: 1. Mild chronic-appearing pulmonary vascular congestion. Scarring within the left midlung. 2. Other findings as noted above. Nothing acute is definitely appreciated. Diagnostic code #2 MTDD
[2019-08-03] MEDS ORDERED: Promethazine 25 MG/ML SDV IM ONE (13:05)
[2019-08-03] MEDS ORDERED: Promethazine 25 MG/ML SDV ONE (13:06)
--- NOTE | 2019-08-03 14:21 | CT ---
CT abdomen and pelvis Technique: Multiple axial sections were obtained from above the dome of the diaphragm inferiorly through the pubic symphysis. Intravenous and oral contrast was not utilized which diminishes details of the exam. Comparison: Prior CT abdomen and pelvis exam of 06/28/19. Findings: Hazy groundglass appearance noted within both lung bases. This could be due to early areas of pneumonia versus subsegmental atelectasis. Small hiatal hernia is seen. Previous gastric surgery is noted. Nonobstructing calculi are seen within both kidneys. Small cortical cyst noted off the right kidney measuring about 7 mm. Surgical clips are seen from prior cholecystectomy. Mild intrahepatic and extrahepatic biliary duct dilatation is seen which is stable. Pancreas shows no discrete abnormality. Noncontrast appearance of the liver appears within normal limits. Spleen appears within normal limits. Right adrenal mass is seen which measures 3.4 cm. This shows several low density Hounsfield unit measurements and most likely represents an adenoma. Left adrenal gland also shows a small low- density nodule also felt compatible with adrenal adenoma measuring 1.6 cm. Aorta and iliac vessels shows atherosclerotic change without aneurysm. No retroperitoneal adenopathy is seen. Previous anastomotic sutures are seen within the bowel. Mildly dilated loops of small bowel are seen which contain fluid. Findings are suspicious for distal small bowel obstruction with transition point appears to be within the upper left abdomen but no etiology is seen and findings most likely due to adhesion. Mild increased stool is noted throughout the colon. Fat-containing umbilical hernia is noted. No free fluid or inflammatory change is seen. Pessary is noted. Appendix not visualized. Degenerative change and scoliosis is present within the spine. Impression: 1. Fluid-filled dilated small bowel compatible with distal small bowel obstruction. This is most likely due to a nonvisualized adhesion. 2. Prior stomach surgery as well as prior small bowel surgery. 3. Nonobstructing calculi within both kidneys. 4. Adrenal masses on both sides most likely due to adrenal adenomas. 5. Hazy groundglass appearance within both lung bases. If patient has no symptoms to suggest infection, this is likely due to subsegmental atelectasis. 6. Other findings as noted above which are stable and nonacute. Diagnostic code #3 MTDD
[2019-08-03] MEDS ORDERED: Sodium Chloride 0.9% 1,000 ML IV ONE (14:42)
[2019-08-03] MEDS ORDERED: Benzocaine 20% Topical Spray UD MUCMEM ONE ×2 (14:58→15:15)
--- NOTE | 2019-08-03 16:38 | PCM.CONS ---
H&P History of Present Illness - General Date of Service: 08/03/19 Admit Problem/Dx: Admission Diagnosis/Problem Admission Diagnosis/Problem Small bowel obstruction Source of Information: Patient History Limitations: Reports: Altered Mental Status - History of Present Illness Initial Comments - Free Text/Narative: Patient is a 68-year-old female who presented to the emergency room today complaining of abdominal pain, nausea and vomiting. She states she has been throwing up intermittently for the last 3 weeks. She developed more significant abdominal pain yesterday prompting her presentation to the emergency room today. She has been throwing up incessantly. She states she last passed gas and had a bowel movement yesterday. Duration of Symptoms: Reports: Day(s):, Getting Worse, Recurring Location: Reports: Abdomen Quality: Reports: Same as Previous Episode, Throbbing Improves with: Reports: Rest Worsens with: Reports: None Context: Reports: Sick Contact Associated Symptoms: Reports: Confusion, Loss of Appetite, Nausea/Vomiting. Denies: Diaphoresis, Fever/Chills Abdominal Pain Score (Numeric/FACES): 6 - Related Data Allergies/Adverse Reactions: Allergies Allergy/AdvReac Type Severity Reaction Status Date / Time No Known Allergies Allergy Verified 08/03/19 17:08 Home Medications: Home Meds Methadone 10 mg PO Q6H PRN 01/12/18 [History] DULoxetine [Cymbalta] 60 mg PO DAILY 10/10/18 [History] Carvedilol 12.5 mg PO BIDMEALS 11/08/18 [History] Digoxin [Lanoxin] 62.5 mcg PO BID 11/08/18 [History] Levothyroxine 50 mcg PO ACBREAKFAST 11/08/18 [History] Lisinopril 2.5 mg PO BID 11/08/18 [History] Multivitamin with Iron [Multivitamins with Iron] 2 tab PO DAILY 11/08/18 [ History] Bumetanide 2 mg PO DAILY 07/05/19 [History] Warfarin [Coumadin] 6 mg PO DAILY 14 Days #14 tab 07/12/19 [Rx] oxyCODONE 15 mg PO Q4H 7 Days #0 tablet 07/12/19 [Rx] B-Complex with Vitamin C [Super B Complex-Vitamin C] 1 each PO DAILY 08/03/19 [ History] Calcium Carb/Vitamin D3/Vit K1 [Viactiv 650 mg-12.5 Mcg Chew] 2 each PO DAILY [History] Diltiazem [Diltiazem XR] 240 mg PO DAILY 08/03/19 [History] Iron 18 mg PO DAILY 08/03/19 [History] Omeprazole Magnesium [Prilosec Otc] 40 mg PO DAILY 08/03/19 [History] Past Medical History HEENT History: Reports: Impaired Vision, Other (See Below) Other HEENT History: no teeth or dentures Cardiovascular History: Reports: Afib, Heart Failure, Heart Valve Replacement, Hypertension Other Cardiovascular History: mitral valve regurgitation Respiratory History: Reports: SOB Gastrointestinal History: Reports: GERD Other Gastrointestinal History: acid reflux Genitourinary History: Reports: None [employer] 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: Musculoskeletal History: Reports: Arthritis, Back Pain, Chronic, Other (See Below) Other Musculoskeletal History: scoliosis, bulging discs, carpal tunnel, restless leg Neurological History: Reports: TIA Psychiatric History: Reports: Anxiety, Depression Endocrine/Metabolic History: Reports: None Hematologic History: Reports: Anticoagulation Therapy Immunologic History: Reports: None Oncologic (Cancer) History: Reports: Breast Other Oncologic History: right breast ca Dermatologic History: Reports: None - Infectious Disease History Infectious Disease History: Reports: None - Past Surgical History Head Surgeries/Procedures: Reports: None HEENT Surgical History: Reports: None Cardiovascular Surgical History: Reports: Valve Replacement Respiratory Surgical History: Reports: None GI Surgical History: Reports: Appendectomy, Bariatric Procedure, Cholecystectomy , Colonoscopy, Other (See Below) Female Surgical History: Reports: Tubal Ligation, Other (See Below) Other Female Surgeries/Procedures: right breast lumpectomy Endocrine Surgical History: Reports: None Neurological Surgical History: Reports: None Musculoskeletal Surgical History: Reports: Carpal Tunnel, Other (See Below) Oncologic Surgical History: Reports: Lumpectomy Dermatological Surgical History: Reports: None Social & Family History - Family History Family Medical History: Noncontributory - Tobacco Use Smoking Status *Q: Current Every Day Smoker Years of Tobacco use: 20 Packs/Tins Daily: 1 - Caffeine Use Caffeine Use: Reports: Coffee, Tea Caffeine Use Comment: 3-4 cups a day - Recreational Drug Use Recreational Drug Use: No - Living Situation & Occupation Living situation: Reports: , with Family Occupation: Retired H&P Review of Systems - Review of Systems: Review Of Systems: See Below General: Reports: Malaise, Weakness, Fatigue, Decreased Appetite. Denies: Fever , Chills HEENT: Denies: Headaches, Hearing Changes, Vertigo Pulmonary: Reports: Shortness of Breath. Denies: Wheezing, Pleuritic Chest Pain , Cough Cardiovascular: Denies: Chest Pain, Palpitations, PND, Edema, Lightheadedness, Syncope Gastrointestinal: Reports: Abdominal Pain, Anorexia, Constipation, Decreased Appetite, Distension, Nausea, Vomiting. Denies: Black Stool, Bloody Stool, Diarrhea, Flatus, Hematemesis, Hematochezia, Melena Genitourinary: Denies: Dysuria, Frequency, Burning, Pain, Urgency Musculoskeletal: Reports: No Symptoms Skin: Denies: Cyanosis, Jaundice, Mottled, Pallor, Diaphoresis Psychiatric: Reports: Depression. Denies: Confusion, Mood Lability, Anxiety Neurological: Reports: Confusion. Denies: Dizziness, Headache, Numbness Hematologic/Lymphatic: Denies: Anemia, Easy Bleeding, Easy Bruising Immunologic: Reports: No Symptoms Exam - Exam Exam: See Below - Vital Signs Vital Signs: Last Vital Signs Temp 96.2 F 08/03/19 10:15 Pulse 82 08/03/19 16:00 Resp 18 08/03/19 16:00 BP 171/89 H 08/03/19 16:00 Pulse Ox 92 L 08/03/19 16:00 Weight: 146 lb 13.246 oz - Exam Quality Assessment: Supplemental Oxygen, Other (NG tube) General: Alert, Lethargic HEENT: Conjunctiva Clear, EACs Clear, Nares Patent, Pupils Equal, Pupils Reactive. No: Scleral Icterus Neck: Supple, Trachea Midline, +2 Carotid Pulse wo Bruit Lungs: Clear to Auscultation, Normal Respiratory Effort Cardiovascular: Regular Rate, Regular Rhythm, Normal S1, Normal S2, Other ( audible click from prosthetic heart valve). No: Bradycardia, Tachycardia GI/Abdominal Exam: Normal Bowel Sounds, No Abnormal Bruit, Distended, Tender, Abnormal Bowel Sounds (slight high pitched). No: Guarding, Rigid, Rebound (Female) Exam: Deferred Rectal (Female) Exam: Deferred Back Exam: Normal Inspection Extremities: Normal Inspection, Non-Tender, No Pedal Edema Peripheral Pulses: 4+: Posterior Tibial (L), Posterior Tibial (R), Dorsalis Pedis (L), Dorsalis Pedis (R) Skin: Warm, Dry, Intact Neurological: Cranial Nerves Intact Neuro Extensive - Mental Status: Alert, Slow Response to Commands Psychiatric: Alert - Patient Data Lab Results Last 24 hrs: Laboratory Results - last 24 hr 08/03/19 08/03/19 08/03/19 Range/Units 10:30 10:30 10:30 WBC 10.01 (4.0-11.0) K/uL RBC 4.53 (4.30-5.90) M/uL Hgb 13.2 (12.0-16.0) g/dL Hct 41.6 (36.0-46.0) % MCV 91.8 (80.0-98.0) fL MCH 29.1 (27.0-32.0) pg MCHC 31.7 (31.0-37.0) g/dL RDW Std Deviation 47.8 (28.0-62.0) fl RDW Coeff of Shaun 14 (11.0-15.0) % Plt Count 276 (150-400) K/uL MPV 9.50 (7.40-12.00) fL Neut % (Auto) 75.6 (48.0-80.0) % Lymph % (Auto) 17.6 (16.0-40.0) % Tate % (Auto) 5.5 (0.0-15.0) % Eos % (Auto) 1.1 (0.0-7.0) % Baso % (Auto) 0.2 (0.0-1.5) % Neut # (Auto) 7.6 H (1.4-5.7) K/uL Lymph # (Auto) 1.8 (0.6-2.4) K/uL Tate # (Auto) 0.6 (0.0-0.8) K/uL Eos # (Auto) 0.1 (0.0-0.7) K/uL Baso # (Auto) 0.0 (0.0-0.1) K/uL Nucleated RBC % 0.0 /100WBC Nucleated RBCs # 0 K/uL INR 1.38 Sodium 140 (136-145) mmol/L Potassium 4.1 (3.5-5.1) mmol/L Chloride 101 (98-107) mmol/L Carbon Dioxide 27.9 (21.0-32.0) mmol/L BUN 19 H (7.0-18.0) mg/dL Creatinine 1.1 H (0.6-1.0) mg/dL Est Cr Clr Drug Dosing TNP Estimated GFR (MDRD) 49.4 ml/min Glucose 149 H (74-106) mg/dL Calcium 9.8 (8.5-10.1) mg/dL Total Bilirubin 0.5 (0.2-1.0) mg/dL AST 21 (15-37) IU/L ALT 20 (14-63) IU/L Alkaline Phosphatase 152 H (46-116) U/L Troponin I < 0.050 (0.000-0.056) ng/mL B-Natriuretic Peptide (<100) PG/ML Total Protein 7.9 (6.4-8.2) g/dL Albumin 3.7 (3.4-5.0) g/dL Globulin 4.2 H (2.6-4.0) g/dL Albumin/Globulin Ratio 0.9 (0.9-1.6) Lipase 195 (73-393) U/L TSH 3rd Generation (0.36-3.74) uIU/mL Urine Color Urine Appearance Urine pH (5.0-8.0) Ur Specific [place] (1.001-1.035) Urine Protein (NEGATIVE) mg/dL Urine Glucose (UA) (NEGATIVE) mg/dL Urine Ketones (NEGATIVE) mg/dL Urine Occult Blood (NEGATIVE) Urine Nitrite (NEGATIVE) Urine Bilirubin (NEGATIVE) Urine Ictotest Urine Urobilinogen (<2.0) EU/dL Ur Leukocyte Esterase (NEGATIVE) Urine RBC (0-2/HPF) Urine WBC (0-5/HPF) Ur Epithelial Cells (NONE-FEW) Urine Bacteria (NEGATIVE) Urine Opiates Screen (NEGATIVE) Ur Oxycodone Screen (NEGATIVE) Urine Methadone Screen (NEGATIVE) Ur Barbiturates Screen (NEGATIVE) Ur Phencyclidine Scrn (NEGATIVE) Ur Amphetamine Screen (NEGATIVE) U Methamphetamines Scrn (NEGATIVE) U Benzodiazepines Scrn (NEGATIVE) U Cocaine Metab Screen (NEGATIVE) U Marijuana (THC) Screen (NEGATIVE) Ethyl Alcohol mg/dL 08/03/19 08/03/19 08/03/19 Range/Units 10:30 10:30 12:48 WBC (4.0-11.0) K/uL RBC (4.30-5.90) M/uL Hgb (12.0-16.0) g/dL Hct (36.0-46.0) % MCV (80.0-98.0) fL MCH (27.0-32.0) pg MCHC (31.0-37.0) g/dL RDW Std Deviation (28.0-62.0) fl RDW Coeff of Shaun (11.0-15.0) % Plt Count (150-400) K/uL MPV (7.40-12.00) fL Neut % (Auto) (48.0-80.0) % Lymph % (Auto) (16.0-40.0) % Tate % (Auto) (0.0-15.0) % Eos % (Auto) (0.0-7.0) % Baso % (Auto) (0.0-1.5) % Neut # (Auto) (1.4-5.7) K/uL Lymph # (Auto) (0.6-2.4) K/uL Tate # (Auto) (0.0-0.8) K/uL Eos # (Auto) (0.0-0.7) K/uL Baso # (Auto) (0.0-0.1) K/uL Nucleated RBC % /100WBC Nucleated RBCs # K/uL INR Sodium (136-145) mmol/L Potassium (3.5-5.1) mmol/L Chloride (98-107) mmol/L Carbon Dioxide (21.0-32.0) mmol/L BUN (7.0-18.0) mg/dL Creatinine (0.6-1.0) mg/dL Est Cr Clr Drug Dosing Estimated GFR (MDRD) ml/min Glucose (74-106) mg/dL Calcium (8.5-10.1) mg/dL Total Bilirubin (0.2-1.0) mg/dL AST (15-37) IU/L ALT (14-63) IU/L Alkaline Phosphatase (46-116) U/L Troponin I (0.000-0.056) ng/mL B-Natriuretic Peptide 221 H (<100) PG/ML Total Protein (6.4-8.2) g/dL Albumin (3.4-5.0) g/dL Globulin (2.6-4.0) g/dL Albumin/Globulin Ratio (0.9-1.6) Lipase (73-393) U/L TSH 3rd Generation 4.36 H (0.36-3.74) uIU/mL Urine Color YELLOW Urine Appearance SLT CLOUDY Urine pH 7.5 (5.0-8.0) Ur Specific [place] 1.015 (1.001-1.035) Urine Protein 30 H (NEGATIVE) mg/dL Urine Glucose (UA) NEGATIVE (NEGATIVE) mg/dL Urine Ketones TRACE H (NEGATIVE) mg/dL Urine Occult Blood TRACE-INTACT H (NEGATIVE) Urine Nitrite NEGATIVE (NEGATIVE) Urine Bilirubin SMALL H (NEGATIVE) Urine Ictotest NEGATIVE Urine Urobilinogen 4.0 H (<2.0) EU/dL Ur Leukocyte Esterase TRACE H (NEGATIVE) Urine RBC 0-3 (0-2/HPF) Urine WBC 0-2 (0-5/HPF) Ur Epithelial Cells FEW (NONE-FEW) Urine Bacteria FEW (NEGATIVE) Urine Opiates Screen (NEGATIVE) Ur Oxycodone Screen (NEGATIVE) Urine Methadone Screen (NEGATIVE) Ur Barbiturates Screen (NEGATIVE) Ur Phencyclidine Scrn (NEGATIVE) Ur Amphetamine Screen (NEGATIVE) U Methamphetamines Scrn (NEGATIVE) U Benzodiazepines Scrn (NEGATIVE) U Cocaine Metab Screen (NEGATIVE) U Marijuana (THC) Screen (NEGATIVE) Ethyl Alcohol < 3.0 mg/dL 08/03/19 Range/Units 12:48 WBC (4.0-11.0) K/uL RBC (4.30-5.90) M/uL Hgb (12.0-16.0) g/dL Hct (36.0-46.0) % MCV (80.0-98.0) fL MCH (27.0-32.0) pg MCHC (31.0-37.0) g/dL RDW Std Deviation (28.0-62.0) fl RDW Coeff of Shaun (11.0-15.0) % Plt Count (150-400) K/uL MPV (7.40-12.00) fL Neut % (Auto) (48.0-80.0) % Lymph % (Auto) (16.0-40.0) % Tate % (Auto) (0.0-15.0) % Eos % (Auto) (0.0-7.0) % Baso % (Auto) (0.0-1.5) % Neut # (Auto) (1.4-5.7) K/uL Lymph # (Auto) (0.6-2.4) K/uL Tate # (Auto) (0.0-0.8) K/uL Eos # (Auto) (0.0-0.7) K/uL Baso # (Auto) (0.0-0.1) K/uL Nucleated RBC % /100WBC Nucleated RBCs # K/uL INR Sodium (136-145) mmol/L Potassium (3.5-5.1) mmol/L Chloride (98-107) mmol/L Carbon Dioxide (21.0-32.0) mmol/L BUN (7.0-18.0) mg/dL Creatinine (0.6-1.0) mg/dL Est Cr Clr Drug Dosing Estimated GFR (MDRD) ml/min Glucose (74-106) mg/dL Calcium (8.5-10.1) mg/dL Total Bilirubin (0.2-1.0) mg/dL AST (15-37) IU/L ALT (14-63) IU/L Alkaline Phosphatase (46-116) U/L Troponin I (0.000-0.056) ng/mL B-Natriuretic Peptide (<100) PG/ML Total Protein (6.4-8.2) g/dL Albumin (3.4-5.0) g/dL Globulin (2.6-4.0) g/dL Albumin/Globulin Ratio (0.9-1.6) Lipase (73-393) U/L TSH 3rd Generation (0.36-3.74) uIU/mL Urine Color Urine Appearance Urine pH (5.0-8.0) Ur Specific [place] (1.001-1.035) Urine Protein (NEGATIVE) mg/dL Urine Glucose (UA) (NEGATIVE) mg/dL Urine Ketones (NEGATIVE) mg/dL Urine Occult Blood (NEGATIVE) Urine Nitrite (NEGATIVE) Urine Bilirubin (NEGATIVE) Urine Ictotest Urine Urobilinogen (<2.0) EU/dL Ur Leukocyte Esterase (NEGATIVE) Urine RBC (0-2/HPF) Urine WBC (0-5/HPF) Ur Epithelial Cells (NONE-FEW) Urine Bacteria (NEGATIVE) Urine Opiates Screen NEGATIVE (NEGATIVE) Ur Oxycodone Screen POSITIVE (NEGATIVE) Urine Methadone Screen POSITIVE (NEGATIVE) Ur Barbiturates Screen NEGATIVE (NEGATIVE) Ur Phencyclidine Scrn NEGATIVE (NEGATIVE) Ur Amphetamine Screen NEGATIVE (NEGATIVE) U Methamphetamines Scrn NEGATIVE (NEGATIVE) U Benzodiazepines Scrn NEGATIVE (NEGATIVE) U Cocaine Metab Screen NEGATIVE (NEGATIVE) U Marijuana (THC) Screen NEGATIVE (NEGATIVE) Ethyl Alcohol mg/dL Result Diagrams: 08/03/19 10:30 08/03/19 10:30 Consult PN Assessment/Plan Procedures: Procedures AIRWAY INHALATION TREATMENT (07/04/19) ASSAY OF CK (CPK) (11/21/17) ASSAY OF FREE THYROXINE (06/28/19) ASSAY OF IRON (11/08/17) ASSAY OF LACTIC ACID (07/20/17) ASSAY OF MAGNESIUM (09/27/18) ASSAY OF NATRIURETIC PEPTIDE (10/23/18) ASSAY OF TROPONIN QUANT (10/23/18) ASSAY THYROID STIM HORMONE (06/28/19) BLOOD TRANSFUSION SERVICE (11/08/17) BLOOD TYPING SEROLOGIC ABO (11/08/17) BLOOD TYPING SEROLOGIC RH(D) (11/08/17) CHEST X-RAY 1 VIEW FRONTAL (09/24/17) CHEST X-RAY 2VW FRONTAL&LATL (07/20/17) CO/MEMBANE DIFFUSE CAPACITY (06/22/18) COMPATIBILITY TEST ANTIGLOB (11/08/17) COMPATIBILITY TEST INCUBATE (11/08/17) COMPATIBILITY TEST SPIN (11/08/17) COMPLETE CBC AUTOMATED (11/21/17) COMPLETE CBC W/AUTO DIFF WBC (07/04/19) COMPREHEN METABOLIC PANEL (07/04/19) CREATINE MB FRACTION (11/21/17) CRITICAL CARE ADDL 30 MIN (10/23/18) CRITICAL CARE FIRST HOUR (10/23/18) CT ABD & PELV W/CONTRAST (06/28/19) CT HEAD/BRAIN W/O DYE (12/05/17) CT PELVIS W/O DYE (07/02/19) DRUG TEST PRSMV DIR OPT OBS (07/20/17) ELECTROCARDIOGRAM TRACING (10/23/18) EMERGENCY DEPT VISIT (07/04/19) EMERGENCY DEPT VISIT (11/08/18) EMERGENCY DEPT VISIT (09/27/18) EMERGENCY DEPT VISIT (01/08/18) EMERGENCY DEPT VISIT (12/05/17) EMERGENCY DEPT VISIT (10/02/17) EMERGENCY DEPT VISIT (09/25/17) EMERGENCY DEPT VISIT (09/24/17) EMERGENCY DEPT VISIT (01/15/17) EMERGENCY DEPT VISIT (12/11/16) EMERGENCY DEPT VISIT (11/28/16) EVALUATION OF WHEEZING (06/22/18) FLUOROGUIDE FOR VEIN DEVICE (11/08/17) FREE ASSAY (FT-3) (06/28/19) GLYCOSYLATED HEMOGLOBIN TEST (07/20/17) HEMATOCRIT (11/08/17) HEMOGLOBIN (11/08/17) HEPATIC FUNCTION PANEL (11/17/17) HEPATITIS B SURFACE AG IA (10/23/18) HEPATITIS C AB TEST (10/23/18) HIV-1 AG W/HIV-1 & HIV-2 AB (10/23/18) HYDRATE IV INFUSION ADD-ON (07/02/19) IIV NO PRSV INCREASED AG IM (09/09/18) INFLUENZA ASSAY W/OPTIC (09/27/18) INSERT EMERGENCY AIRWAY (10/23/18) INSERT TEMP BLADDER CATH (10/23/18) INSJ PICC 5 YR+ W/O IMAGING (11/08/17) LIPID PANEL (07/20/17) METABOLIC PANEL TOTAL CA (07/04/19) OFFICE/OUTPATIENT VISIT EST (06/28/19) OFFICE/OUTPATIENT VISIT EST (06/22/18) OFFICE/OUTPATIENT VISIT EST (02/27/18) OFFICE/OUTPATIENT VISIT EST (09/12/17) PROTHROMBIN TIME (07/16/19) PT EVAL MOD COMPLEX 30 MIN (07/04/19) PULM FUNCTION TEST BY GAS (06/22/18) RBC ANTIBODY SCREEN (11/08/17) ROUTINE VENIPUNCTURE (07/04/19) THER/PROPH/DIAG INJ IV PUSH (07/02/19) THER/PROPH/DIAG INJ SC/IM (01/15/17) THERAPEUTIC ACTIVITIES (07/04/19) THROMBOPLASTIN TIME PARTIAL (11/08/17) TTE W/DOPPLER COMPLETE (06/23/18) TX/PRO/DX INJ NEW DRUG ADDON (10/23/18) TX/PRO/DX INJ SAME DRUG TINSEL MACHINE OPERATOR (01/12/18) UR ALBUMIN SEMIQUANTITATIVE (05/05/16) URINALYSIS AUTO W/SCOPE (07/04/19) URINE CULTURE/COLONY COUNT (09/27/18) US GUIDE VASCULAR ACCESS (11/08/17) X-RAY EXAM CHEST 1 VIEW (10/23/18) X-RAY EXAM CHEST 2 VIEWS (10/09/18) X-RAY EXAM HIP UNI 1 VIEW (09/25/17) X-RAY EXAM HIP UNI 2-3 VIEWS (07/02/19) X-RAY EXAM L-S SPINE 2/3 VWS (01/15/17) X-RAY EXAM OF FINGER(S) (11/28/16) X-RAY EXAM OF SHOULDER (11/28/16) X-RAY EXAM RIBS UNI 2 VIEWS (09/25/17) (1) Aortic valve replaced SNOMED Code(s): 3431481554318, 48059669, 7878769868961 Code(s): Z95.2 - PRESENCE OF PROSTHETIC HEART VALVE Priority: Medium Current Visit: Yes (2) Small bowel obstruction SNOMED Code(s): 936508703 Code(s): K56.609 - UNSP INTESTNL OBST, UNSP TO PARTIAL VERSUS COMPLETE OBST Priority: High Current Visit: Yes (3) Anemia SNOMED Code(s): 100816599 Code(s): D64.9 - ANEMIA, UNSPECIFIED Priority: Medium Current Visit: No Qualifiers: Anemia type: unspecified type Qualified Code(s): D64.9 - Anemia, unspecified (4) Atrial fibrillation with RVR SNOMED Code(s): 250172270142284 Code(s): I48.91 - UNSPECIFIED ATRIAL FIBRILLATION Priority: Medium Current Visit: No (5) Atrial flutter SNOMED Code(s): 6703624 Code(s): I48.92 - UNSPECIFIED ATRIAL FLUTTER Priority: Medium Current Visit: No (6) Elevated INR SNOMED Code(s): 826974520 Code(s): R79.1 - ABNORMAL COAGULATION PROFILE Priority: Medium Current Visit: No (7) H/O prosthetic aortic valve replacement SNOMED Code(s): 5983597366550, [id number] Code(s): Z95.2 - PRESENCE OF PROSTHETIC HEART VALVE Priority: High Current Visit: No Problem List Initiated/Reviewed/Updated: Yes Plan: Keep NPO with NG decompression. Flat/upright abdomen in am. Discussed case with Dr. Merrill, anesthesiologist. She and I have both examined the patient. Patient is a very high risk patient given her sub-therapeutic anticoagulation and prosthetic heart valve. She can be managed here tonight but if surgical intervention is necessary, it is our recommendation that she be transferred to a higher level of care.
--- NOTE | 2019-08-03 16:44 | PCM.HP.2 ---
H&P History of Present Illness - General Date of Service: 09/02/19 Admit Problem/Dx: Admission Diagnosis/Problem Admission Diagnosis/Problem Small bowel obstruction - History of Present Illness Initial Comments - Free Text/Narative: 68 yo female with pmh of atrial fibrillation, HTN, CHF, and gastric bypass who presented with several day history of nausea and vomiting. PAtient reports she is passing gas but not much. She denies any fevers, blood in stool or abdominal pain. CT scan performed in the ED was suggestive of small bowel obstruction. An NG tube was placed and Dr. Dukes was consulted. Abdominal Pain Score (Numeric/FACES): 6 - Related Data Allergies/Adverse Reactions: Allergies Allergy/AdvReac Type Severity Reaction Status Date / Time No Known Allergies Allergy Verified 08/03/19 17:08 Home Medications: Home Meds Methadone 10 mg PO Q6H PRN 01/12/18 [History] DULoxetine [Cymbalta] 60 mg PO DAILY 10/10/18 [History] Carvedilol 12.5 mg PO BIDMEALS 11/08/18 [History] Digoxin [Lanoxin] 62.5 mcg PO BID 11/08/18 [History] Levothyroxine 50 mcg PO ACBREAKFAST 11/08/18 [History] Lisinopril 2.5 mg PO BID 11/08/18 [History] Multivitamin with Iron [Multivitamins with Iron] 2 tab PO DAILY 11/08/18 [ History] Bumetanide 2 mg PO DAILY 07/05/19 [History] Warfarin [Coumadin] 6 mg PO DAILY 14 Days #14 tab 07/12/19 [Rx] oxyCODONE 15 mg PO Q4H 7 Days #0 tablet 07/12/19 [Rx] B-Complex with Vitamin C [Super B Complex-Vitamin C] 1 each PO DAILY 08/03/19 [ History] Calcium Carb/Vitamin D3/Vit K1 [Viactiv 650 mg-12.5 Mcg Chew] 2 each PO DAILY [History] Diltiazem [Dilacor XR] 240 mg PO DAILY 08/03/19 [History] Iron 18 mg PO DAILY 08/03/19 [History] Omeprazole Magnesium [Prilosec Otc] 40 mg PO DAILY 08/03/19 [History] Past Medical History HEENT History: Reports: Impaired Vision, Other (See Below) Other HEENT History: no teeth or dentures Cardiovascular History: Reports: Afib, Heart Failure, Heart Valve Replacement, Hypertension Other Cardiovascular History: mitral valve regurgitation Respiratory History: Reports: SOB Gastrointestinal History: Reports: GERD Other Gastrointestinal History: acid reflux Genitourinary History: Reports: None 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: Musculoskeletal History: Reports: Arthritis, Back Pain, Chronic, Other (See Below) Other Musculoskeletal History: scoliosis, bulging discs, carpal tunnel, restless leg Neurological History: Reports: TIA Psychiatric History: Reports: Anxiety, Depression Endocrine/Metabolic History: Reports: None Hematologic History: Reports: Anticoagulation Therapy Immunologic History: Reports: None Oncologic (Cancer) History: Reports: Breast Other Oncologic History: right breast ca Dermatologic History: Reports: None - Infectious Disease History Infectious Disease History: Reports: None - Past Surgical History Head Surgeries/Procedures: Reports: None HEENT Surgical History: Reports: None Cardiovascular Surgical History: Reports: Valve Replacement Respiratory Surgical History: Reports: None GI Surgical History: Reports: Appendectomy, Bariatric Procedure, Cholecystectomy , Colonoscopy, Other (See Below) Female Surgical History: Reports: Tubal Ligation, Other (See Below) Other Female Surgeries/Procedures: right breast lumpectomy Endocrine Surgical History: Reports: None Neurological Surgical History: Reports: None Musculoskeletal Surgical History: Reports: Carpal Tunnel, Other (See Below) Oncologic Surgical History: Reports: Lumpectomy Dermatological Surgical History: Reports: None Social & Family History - Family History Family Medical History: Noncontributory - Tobacco Use Smoking Status *Q: Current Every Day Smoker Years of Tobacco use: 20 Packs/Tins Daily: 1 - Caffeine Use Caffeine Use: Reports: Coffee, Tea Caffeine Use Comment: 3-4 cups a day - Recreational Drug Use Recreational Drug Use: No - Living Situation & Occupation Living situation: Reports: , with Family Occupation: Retired H&P Review of Systems - Review of Systems: Review Of Systems: ROS reveals no pertinent complaints other than HPI. Exam - Exam Exam: See Below - Vital Signs Vital Signs: Last Vital Signs Temp 35.7 C 08/03/19 10:15 Pulse 72 08/03/19 10:15 Resp 18 08/03/19 10:15 BP 125/68 08/03/19 10:15 Pulse Ox 96 08/03/19 10:15 Weight: 66.6 kg - Exam General: Alert, Cooperative, Lethargic HEENT: Mucosa Moist & [place] Lungs: Clear to Auscultation, Normal Respiratory Effort Cardiovascular: Regular Rate, Regular Rhythm GI/Abdominal Exam: Soft, Non-Tender, No Distention Extremities: Non-Tender, No Pedal Edema Skin: Warm, Dry, Intact Neurological: No: Focal Deficit - Patient Data Lab Results Last 24 hrs: Laboratory Results - last 24 hr 08/03/19 08/03/19 08/03/19 Range/Units 10:30 10:30 10:30 WBC 10.01 (4.0-11.0) K/uL RBC 4.53 (4.30-5.90) M/uL Hgb 13.2 (12.0-16.0) g/dL Hct 41.6 (36.0-46.0) % MCV 91.8 (80.0-98.0) fL MCH 29.1 (27.0-32.0) pg MCHC 31.7 (31.0-37.0) g/dL RDW Std Deviation 47.8 (28.0-62.0) fl RDW Coeff of Shaun 14 (11.0-15.0) % Plt Count 276 (150-400) K/uL MPV 9.50 (7.40-12.00) fL Neut % (Auto) 75.6 (48.0-80.0) % Lymph % (Auto) 17.6 (16.0-40.0) % [place] % (Auto) 5.5 (0.0-15.0) % Eos % (Auto) 1.1 (0.0-7.0) % Baso % (Auto) 0.2 (0.0-1.5) % Neut # (Auto) 7.6 H (1.4-5.7) K/uL Lymph # (Auto) 1.8 (0.6-2.4) K/uL [place] # (Auto) 0.6 (0.0-0.8) K/uL Eos # (Auto) 0.1 (0.0-0.7) K/uL Baso # (Auto) 0.0 (0.0-0.1) K/uL Nucleated RBC % 0.0 /100WBC Nucleated RBCs # 0 K/uL INR 1.38 Sodium 140 (136-145) mmol/L Potassium 4.1 (3.5-5.1) mmol/L Chloride 101 (98-107) mmol/L Carbon Dioxide 27.9 (21.0-32.0) mmol/L BUN 19 H (7.0-18.0) mg/dL Creatinine 1.1 H (0.6-1.0) mg/dL Est Cr Clr Drug Dosing TNP Estimated GFR (MDRD) 49.4 ml/min Glucose 149 H (74-106) mg/dL Calcium 9.8 (8.5-10.1) mg/dL Total Bilirubin 0.5 (0.2-1.0) mg/dL AST 21 (15-37) IU/L ALT 20 (14-63) IU/L Alkaline Phosphatase 152 H (46-116) U/L Troponin I < 0.050 (0.000-0.056) ng/mL B-Natriuretic Peptide (<100) PG/ML Total Protein 7.9 (6.4-8.2) g/dL Albumin 3.7 (3.4-5.0) g/dL Globulin 4.2 H (2.6-4.0) g/dL Albumin/Globulin Ratio 0.9 (0.9-1.6) Lipase 195 (73-393) U/L TSH 3rd Generation (0.36-3.74) uIU/mL Urine Color Urine Appearance Urine pH (5.0-8.0) Ur Specific [place] (1.001-1.035) Urine Protein (NEGATIVE) mg/dL Urine Glucose (UA) (NEGATIVE) mg/dL Urine Ketones (NEGATIVE) mg/dL Urine Occult Blood (NEGATIVE) Urine Nitrite (NEGATIVE) Urine Bilirubin (NEGATIVE) Urine Ictotest Urine Urobilinogen (<2.0) EU/dL Ur Leukocyte Esterase (NEGATIVE) Urine RBC (0-2/HPF) Urine WBC (0-5/HPF) Ur Epithelial Cells (NONE-FEW) Urine Bacteria (NEGATIVE) Urine Opiates Screen (NEGATIVE) Ur Oxycodone Screen (NEGATIVE) Urine Methadone Screen (NEGATIVE) Ur Barbiturates Screen (NEGATIVE) Ur Phencyclidine Scrn (NEGATIVE) Ur Amphetamine Screen (NEGATIVE) U Methamphetamines Scrn (NEGATIVE) U Benzodiazepines Scrn (NEGATIVE) U Cocaine Metab Screen (NEGATIVE) U Marijuana (THC) Screen (NEGATIVE) Ethyl Alcohol mg/dL 08/03/19 08/03/19 08/03/19 Range/Units 10:30 10:30 12:48 WBC (4.0-11.0) K/uL RBC (4.30-5.90) M/uL Hgb (12.0-16.0) g/dL Hct (36.0-46.0) % MCV (80.0-98.0) fL MCH (27.0-32.0) pg MCHC (31.0-37.0) g/dL RDW Std Deviation (28.0-62.0) fl RDW Coeff of Shaun (11.0-15.0) % Plt Count (150-400) K/uL MPV (7.40-12.00) fL Neut % (Auto) (48.0-80.0) % Lymph % (Auto) (16.0-40.0) % [place] % (Auto) (0.0-15.0) % Eos % (Auto) (0.0-7.0) % Baso % (Auto) (0.0-1.5) % Neut # (Auto) (1.4-5.7) K/uL Lymph # (Auto) (0.6-2.4) K/uL [place] # (Auto) (0.0-0.8) K/uL Eos # (Auto) (0.0-0.7) K/uL Baso # (Auto) (0.0-0.1) K/uL Nucleated RBC % /100WBC Nucleated RBCs # K/uL INR Sodium (136-145) mmol/L Potassium (3.5-5.1) mmol/L Chloride (98-107) mmol/L Carbon Dioxide (21.0-32.0) mmol/L BUN (7.0-18.0) mg/dL Creatinine (0.6-1.0) mg/dL Est Cr Clr Drug Dosing Estimated GFR (MDRD) ml/min Glucose (74-106) mg/dL Calcium (8.5-10.1) mg/dL Total Bilirubin (0.2-1.0) mg/dL AST (15-37) IU/L ALT (14-63) IU/L Alkaline Phosphatase (46-116) U/L Troponin I (0.000-0.056) ng/mL B-Natriuretic Peptide 221 H (<100) PG/ML Total Protein (6.4-8.2) g/dL Albumin (3.4-5.0) g/dL Globulin (2.6-4.0) g/dL Albumin/Globulin Ratio (0.9-1.6) Lipase (73-393) U/L TSH 3rd Generation 4.36 H (0.36-3.74) uIU/mL Urine Color YELLOW Urine Appearance SLT CLOUDY Urine pH 7.5 (5.0-8.0) Ur Specific [place] 1.015 (1.001-1.035) Urine Protein 30 H (NEGATIVE) mg/dL Urine Glucose (UA) NEGATIVE (NEGATIVE) mg/dL Urine Ketones TRACE H (NEGATIVE) mg/dL Urine Occult Blood TRACE-INTACT H (NEGATIVE) Urine Nitrite NEGATIVE (NEGATIVE) Urine Bilirubin SMALL H (NEGATIVE) Urine Ictotest NEGATIVE Urine Urobilinogen 4.0 H (<2.0) EU/dL Ur Leukocyte Esterase TRACE H (NEGATIVE) Urine RBC 0-3 (0-2/HPF) Urine WBC 0-2 (0-5/HPF) Ur Epithelial Cells FEW (NONE-FEW) Urine Bacteria FEW (NEGATIVE) Urine Opiates Screen (NEGATIVE) Ur Oxycodone Screen (NEGATIVE) Urine Methadone Screen (NEGATIVE) Ur Barbiturates Screen (NEGATIVE) Ur Phencyclidine Scrn (NEGATIVE) Ur Amphetamine Screen (NEGATIVE) U Methamphetamines Scrn (NEGATIVE) U Benzodiazepines Scrn (NEGATIVE) U Cocaine Metab Screen (NEGATIVE) U Marijuana (THC) Screen (NEGATIVE) Ethyl Alcohol < 3.0 mg/dL 08/03/19 Range/Units 12:48 WBC (4.0-11.0) K/uL RBC (4.30-5.90) M/uL Hgb (12.0-16.0) g/dL Hct (36.0-46.0) % MCV (80.0-98.0) fL MCH (27.0-32.0) pg MCHC (31.0-37.0) g/dL RDW Std Deviation (28.0-62.0) fl RDW Coeff of Shaun (11.0-15.0) % Plt Count (150-400) K/uL MPV (7.40-12.00) fL Neut % (Auto) (48.0-80.0) % Lymph % (Auto) (16.0-40.0) % [place] % (Auto) (0.0-15.0) % Eos % (Auto) (0.0-7.0) % Baso % (Auto) (0.0-1.5) % Neut # (Auto) (1.4-5.7) K/uL Lymph # (Auto) (0.6-2.4) K/uL [place] # (Auto) (0.0-0.8) K/uL Eos # (Auto) (0.0-0.7) K/uL Baso # (Auto) (0.0-0.1) K/uL Nucleated RBC % /100WBC Nucleated RBCs # K/uL INR Sodium (136-145) mmol/L Potassium (3.5-5.1) mmol/L Chloride (98-107) mmol/L Carbon Dioxide (21.0-32.0) mmol/L BUN (7.0-18.0) mg/dL Creatinine (0.6-1.0) mg/dL Est Cr Clr Drug Dosing Estimated GFR (MDRD) ml/min Glucose (74-106) mg/dL Calcium (8.5-10.1) mg/dL Total Bilirubin (0.2-1.0) mg/dL AST (15-37) IU/L ALT (14-63) IU/L Alkaline Phosphatase (46-116) U/L Troponin I (0.000-0.056) ng/mL B-Natriuretic Peptide (<100) PG/ML Total Protein (6.4-8.2) g/dL Albumin (3.4-5.0) g/dL Globulin (2.6-4.0) g/dL Albumin/Globulin Ratio (0.9-1.6) Lipase (73-393) U/L TSH 3rd Generation (0.36-3.74) uIU/mL Urine Color Urine Appearance Urine pH (5.0-8.0) Ur Specific [place] (1.001-1.035) Urine Protein (NEGATIVE) mg/dL Urine Glucose (UA) (NEGATIVE) mg/dL Urine Ketones (NEGATIVE) mg/dL Urine Occult Blood (NEGATIVE) Urine Nitrite (NEGATIVE) Urine Bilirubin (NEGATIVE) Urine Ictotest Urine Urobilinogen (<2.0) EU/dL Ur Leukocyte Esterase (NEGATIVE) Urine RBC (0-2/HPF) Urine WBC (0-5/HPF) Ur Epithelial Cells (NONE-FEW) Urine Bacteria (NEGATIVE) Urine Opiates Screen NEGATIVE (NEGATIVE) Ur Oxycodone Screen POSITIVE (NEGATIVE) Urine Methadone Screen POSITIVE (NEGATIVE) Ur Barbiturates Screen NEGATIVE (NEGATIVE) Ur Phencyclidine Scrn NEGATIVE (NEGATIVE) Ur Amphetamine Screen NEGATIVE (NEGATIVE) U Methamphetamines Scrn NEGATIVE (NEGATIVE) U Benzodiazepines Scrn NEGATIVE (NEGATIVE) U Cocaine Metab Screen NEGATIVE (NEGATIVE) U Marijuana (THC) Screen NEGATIVE (NEGATIVE) Ethyl Alcohol mg/dL Result Diagrams: 08/05/19 07:20 08/05/19 07:20 Problem List Initiated/Reviewed/Updated: Yes Orders Last 24hrs: Active Orders 24 hr Category Date Time Status Admission Status [Patient Status] [ADT] Stat ADT 08/03/19 15:30 Active EKG Documentation Completion [RC] STAT Care 08/03/19 10:25 Active CULTURE URINE [RM] Stat Lab 08/03/19 12:48 Received Sodium Chloride 0.9% [Normal Saline] 1,000 ml Med 08/03/19 14:42 Active IV STAT Sodium Chloride 0.9% [Saline Flush] Med 08/03/19 10:26 Active 10 ml FLUSH ASDIRECTED PRN Sodium Chloride 0.9% [Saline Flush] Med 08/03/19 10:26 Active 2.5 ml FLUSH ASDIRECTED PRN Saline Lock Insert [OM.PC] Stat Oth 08/03/19 10:25 Ordered Medication Orders Sodium Chloride (Normal Saline) 1,000 mls @ 125 mls/hr IV STAT ONE Stop: 08/03/19 22:41 Last Admin: 08/03/19 15:16 Dose: 125 mls/hr Sodium Chloride (Saline Flush) 10 ml FLUSH ASDIRECTED PRN PRN Reason: Keep Vein Open Sodium Chloride (Saline Flush) 2.5 ml FLUSH ASDIRECTED PRN PRN Reason: Keep Vein Open
[2019-08-03] MEDS ORDERED: Morphine 2 MG/ML Syringe IVPUSH PRN (17:21)
[2019-08-04] MEDS: HYDROmorphone 1 MG/ML Syringe IVPUSH PRN ×9 (00:06→22:54)
[2019-08-04] MEDS: Ondansetron 4 MG/2 ML SDV IVPUSH PRN ×2 (00:07→14:34)
[2019-08-04] MEDS: Phenol 1.4% Oral Spray 177 ML Bottle MUCMEM PRN ×2 (00:07→02:44)
[2019-08-04] MEDS: Sodium Chloride 0.9% 1,000 ML IV SCH ×3 (00:42→17:46)
[2019-08-04 07:38] LABS: CARBON DIOXIDE,CO2 29.1 mmol/L (21.0-32.0); POTASSIUM,K 3.8 mmol/L (3.5-5.1)
--- NOTE | 2019-08-04 08:31 | PCM.PN ---
- General Info Date of Service: 08/04/19 Admission Dx/Problem (Free Text): High grade SBO Subjective Update: The patient is a 68-year-old lady who had been previously admitted a month ago secondary to stable pelvic fracture. The patient had been in [place] and had return home. She had been admitted secondary to small bowel obstruction. The surgeon is also been following patient. Patient reports that she has had a bowel movement and is feeling much better. NG tube had been discontinued. She does not have any nausea or vomiting. The patient says that she feels much better today and that likely she could go home tomorrow. Functional Status: Reports: Pain Controlled - Review of Systems General: Reports: Weakness HEENT: Reports: No Symptoms Pulmonary: Reports: No Symptoms Cardiovascular: Reports: No Symptoms Gastrointestinal: Reports: No Symptoms Genitourinary: Reports: No Symptoms Musculoskeletal: Reports: No Symptoms Skin: Reports: No Symptoms Neurological: Reports: No Symptoms Psychiatric: Reports: No Symptoms - Patient Data Vitals - Most Recent: Last Vital Signs Temp 36.5 C 08/04/19 04:29 Pulse 100 08/04/19 04:29 Resp 18 08/04/19 04:29 BP 130/64 08/04/19 04:29 Pulse Ox 94 L 08/04/19 04:29 Weight - Most Recent: 76.612 kg I&O - Last 24 Hours: Intake & Output 08/03/19 08/04/19 08/04/19 22:59 06:59 14:59 Intake Total 1404 Output Total 300 Balance 1104 Lab Results Last 24 Hours: Laboratory Results - last 24 hr 08/03/19 08/03/19 08/03/19 Range/Units 10:30 10:30 10:30 WBC 10.01 (4.0-11.0) K/uL RBC 4.53 (4.30-5.90) M/uL Hgb 13.2 (12.0-16.0) g/dL Hct 41.6 (36.0-46.0) % MCV 91.8 (80.0-98.0) fL MCH 29.1 (27.0-32.0) pg MCHC 31.7 (31.0-37.0) g/dL RDW Std Deviation 47.8 (28.0-62.0) fl RDW Coeff of Shaun 14 (11.0-15.0) % Plt Count 276 (150-400) K/uL MPV 9.50 (7.40-12.00) fL Neut % (Auto) 75.6 (48.0-80.0) % Lymph % (Auto) 17.6 (16.0-40.0) % [place] % (Auto) 5.5 (0.0-15.0) % Eos % (Auto) 1.1 (0.0-7.0) % Baso % (Auto) 0.2 (0.0-1.5) % Neut # (Auto) 7.6 H (1.4-5.7) K/uL Lymph # (Auto) 1.8 (0.6-2.4) K/uL [place] # (Auto) 0.6 (0.0-0.8) K/uL Eos # (Auto) 0.1 (0.0-0.7) K/uL Baso # (Auto) 0.0 (0.0-0.1) K/uL Nucleated RBC % 0.0 /100WBC Nucleated RBCs # 0 K/uL INR 1.38 Sodium 140 (136-145) mmol/L Potassium 4.1 (3.5-5.1) mmol/L Chloride 101 (98-107) mmol/L Carbon Dioxide 27.9 (21.0-32.0) mmol/L BUN 19 H (7.0-18.0) mg/dL Creatinine 1.1 H (0.6-1.0) mg/dL Est Cr Clr Drug Dosing TNP Estimated GFR (MDRD) 49.4 ml/min Glucose 149 H (74-106) mg/dL Calcium 9.8 (8.5-10.1) mg/dL Total Bilirubin 0.5 (0.2-1.0) mg/dL AST 21 (15-37) IU/L ALT 20 (14-63) IU/L Alkaline Phosphatase 152 H (46-116) U/L Troponin I < 0.050 (0.000-0.056) ng/mL B-Natriuretic Peptide (<100) PG/ML Total Protein 7.9 (6.4-8.2) g/dL Albumin 3.7 (3.4-5.0) g/dL Globulin 4.2 H (2.6-4.0) g/dL Albumin/Globulin Ratio 0.9 (0.9-1.6) Lipase 195 (73-393) U/L TSH 3rd Generation (0.36-3.74) uIU/mL Urine Color Urine Appearance Urine pH (5.0-8.0) Ur Specific [place] (1.001-1.035) Urine Protein (NEGATIVE) mg/dL Urine Glucose (UA) (NEGATIVE) mg/dL Urine Ketones (NEGATIVE) mg/dL Urine Occult Blood (NEGATIVE) Urine Nitrite (NEGATIVE) Urine Bilirubin (NEGATIVE) Urine Ictotest Urine Urobilinogen (<2.0) EU/dL Ur Leukocyte Esterase (NEGATIVE) Urine RBC (0-2/HPF) Urine WBC (0-5/HPF) Ur Epithelial Cells (NONE-FEW) Urine Bacteria (NEGATIVE) Urine Opiates Screen (NEGATIVE) Ur Oxycodone Screen (NEGATIVE) Urine Methadone Screen (NEGATIVE) Ur Barbiturates Screen (NEGATIVE) Ur Phencyclidine Scrn (NEGATIVE) Ur Amphetamine Screen (NEGATIVE) U Methamphetamines Scrn (NEGATIVE) U Benzodiazepines Scrn (NEGATIVE) U Cocaine Metab Screen (NEGATIVE) U Marijuana (THC) Screen (NEGATIVE) Ethyl Alcohol mg/dL 08/03/19 08/03/19 08/03/19 Range/Units 10:30 10:30 12:48 WBC (4.0-11.0) K/uL RBC (4.30-5.90) M/uL Hgb (12.0-16.0) g/dL Hct (36.0-46.0) % MCV (80.0-98.0) fL MCH (27.0-32.0) pg MCHC (31.0-37.0) g/dL RDW Std Deviation (28.0-62.0) fl RDW Coeff of Shaun (11.0-15.0) % Plt Count (150-400) K/uL MPV (7.40-12.00) fL Neut % (Auto) (48.0-80.0) % Lymph % (Auto) (16.0-40.0) % [place] % (Auto) (0.0-15.0) % Eos % (Auto) (0.0-7.0) % Baso % (Auto) (0.0-1.5) % Neut # (Auto) (1.4-5.7) K/uL Lymph # (Auto) (0.6-2.4) K/uL [place] # (Auto) (0.0-0.8) K/uL Eos # (Auto) (0.0-0.7) K/uL Baso # (Auto) (0.0-0.1) K/uL Nucleated RBC % /100WBC Nucleated RBCs # K/uL INR Sodium (136-145) mmol/L Potassium (3.5-5.1) mmol/L Chloride (98-107) mmol/L Carbon Dioxide (21.0-32.0) mmol/L BUN (7.0-18.0) mg/dL Creatinine (0.6-1.0) mg/dL Est Cr Clr Drug Dosing Estimated GFR (MDRD) ml/min Glucose (74-106) mg/dL Calcium (8.5-10.1) mg/dL Total Bilirubin (0.2-1.0) mg/dL AST (15-37) IU/L ALT (14-63) IU/L Alkaline Phosphatase (46-116) U/L Troponin I (0.000-0.056) ng/mL B-Natriuretic Peptide 221 H (<100) PG/ML Total Protein (6.4-8.2) g/dL Albumin (3.4-5.0) g/dL Globulin (2.6-4.0) g/dL Albumin/Globulin Ratio (0.9-1.6) Lipase (73-393) U/L TSH 3rd Generation 4.36 H (0.36-3.74) uIU/mL Urine Color YELLOW Urine Appearance SLT CLOUDY Urine pH 7.5 (5.0-8.0) Ur Specific [place] 1.015 (1.001-1.035) Urine Protein 30 H (NEGATIVE) mg/dL Urine Glucose (UA) NEGATIVE (NEGATIVE) mg/dL Urine Ketones TRACE H (NEGATIVE) mg/dL Urine Occult Blood TRACE-INTACT H (NEGATIVE) Urine Nitrite NEGATIVE (NEGATIVE) Urine Bilirubin SMALL H (NEGATIVE) Urine Ictotest NEGATIVE Urine Urobilinogen 4.0 H (<2.0) EU/dL Ur Leukocyte Esterase TRACE H (NEGATIVE) Urine RBC 0-3 (0-2/HPF) Urine WBC 0-2 (0-5/HPF) Ur Epithelial Cells FEW (NONE-FEW) Urine Bacteria FEW (NEGATIVE) Urine Opiates Screen (NEGATIVE) Ur Oxycodone Screen (NEGATIVE) Urine Methadone Screen (NEGATIVE) Ur Barbiturates Screen (NEGATIVE) Ur Phencyclidine Scrn (NEGATIVE) Ur Amphetamine Screen (NEGATIVE) U Methamphetamines Scrn (NEGATIVE) U Benzodiazepines Scrn (NEGATIVE) U Cocaine Metab Screen (NEGATIVE) U Marijuana (THC) Screen (NEGATIVE) Ethyl Alcohol < 3.0 mg/dL 08/03/19 08/04/19 08/04/19 Range/Units 12:48 07:18 07:18 WBC 10.55 (4.0-11.0) K/uL RBC 4.13 L (4.30-5.90) M/uL Hgb 11.9 L (12.0-16.0) g/dL Hct 38.7 (36.0-46.0) % MCV 93.7 (80.0-98.0) fL MCH 28.8 (27.0-32.0) pg MCHC 30.7 L (31.0-37.0) g/dL RDW Std Deviation 49.3 (28.0-62.0) fl RDW Coeff of Shaun 15 (11.0-15.0) % Plt Count 261 (150-400) K/uL MPV 9.90 (7.40-12.00) fL Neut % (Auto) 82.7 H (48.0-80.0) % Lymph % (Auto) 10.2 L (16.0-40.0) % [place] % (Auto) 7.0 (0.0-15.0) % Eos % (Auto) 0.0 (0.0-7.0) % Baso % (Auto) 0.1 (0.0-1.5) % Neut # (Auto) 8.7 H (1.4-5.7) K/uL Lymph # (Auto) 1.1 (0.6-2.4) K/uL [place] # (Auto) 0.7 (0.0-0.8) K/uL Eos # (Auto) 0.0 (0.0-0.7) K/uL Baso # (Auto) 0.0 (0.0-0.1) K/uL Nucleated RBC % 0.0 /100WBC Nucleated RBCs # 0 K/uL INR Sodium 147 H (136-145) mmol/L Potassium 3.8 (3.5-5.1) mmol/L Chloride 109 H (98-107) mmol/L Carbon Dioxide 29.1 (21.0-32.0) mmol/L BUN 25 H (7.0-18.0) mg/dL Creatinine 1.0 (0.6-1.0) mg/dL Est Cr Clr Drug Dosing 38.68 Estimated GFR (MDRD) 55.1 ml/min Glucose 130 H (74-106) mg/dL Calcium 8.1 L (8.5-10.1) mg/dL Total Bilirubin (0.2-1.0) mg/dL AST (15-37) IU/L ALT (14-63) IU/L Alkaline Phosphatase (46-116) U/L Troponin I (0.000-0.056) ng/mL B-Natriuretic Peptide (<100) PG/ML Total Protein (6.4-8.2) g/dL Albumin (3.4-5.0) g/dL Globulin (2.6-4.0) g/dL Albumin/Globulin Ratio (0.9-1.6) Lipase (73-393) U/L TSH 3rd Generation (0.36-3.74) uIU/mL Urine Color Urine Appearance Urine pH (5.0-8.0) Ur Specific [place] (1.001-1.035) Urine Protein (NEGATIVE) mg/dL Urine Glucose (UA) (NEGATIVE) mg/dL Urine Ketones (NEGATIVE) mg/dL Urine Occult Blood (NEGATIVE) Urine Nitrite (NEGATIVE) Urine Bilirubin (NEGATIVE) Urine Ictotest Urine Urobilinogen (<2.0) EU/dL Ur Leukocyte Esterase (NEGATIVE) Urine RBC (0-2/HPF) Urine WBC (0-5/HPF) Ur Epithelial Cells (NONE-FEW) Urine Bacteria (NEGATIVE) Urine Opiates Screen NEGATIVE (NEGATIVE) Ur Oxycodone Screen POSITIVE (NEGATIVE) Urine Methadone Screen POSITIVE (NEGATIVE) Ur Barbiturates Screen NEGATIVE (NEGATIVE) Ur Phencyclidine Scrn NEGATIVE (NEGATIVE) Ur Amphetamine Screen NEGATIVE (NEGATIVE) U Methamphetamines Scrn NEGATIVE (NEGATIVE) U Benzodiazepines Scrn NEGATIVE (NEGATIVE) U Cocaine Metab Screen NEGATIVE (NEGATIVE) U Marijuana (THC) Screen NEGATIVE (NEGATIVE) Ethyl Alcohol mg/dL Med Orders - Current: Current Medications Hydromorphone HCl (Dilaudid) 1 mg IVPUSH Q2H PRN PRN Reason: Pain (severe 7-10) Last Admin: 08/04/19 06:48 Dose: 1 mg Sodium Chloride (Normal Saline) 1,000 mls @ 125 mls/hr IV ASDIRECTED [place] Last Admin: 08/04/19 00:42 Dose: 125 mls/hr Morphine Sulfate (Morphine) 2 mg IVPUSH Q3H PRN PRN Reason: Pain Last Admin: 08/03/19 21:12 Dose: 2 mg Ondansetron HCl (Zofran) 4 mg IVPUSH Q4H PRN PRN Reason: Nausea Last Admin: 08/04/19 00:07 Dose: 4 mg Phenol/Menthol (Chloraseptic Throat [place]) 0 ml MUCMEM Q2H PRN PRN Reason: Pain (mild 1-3) Last Admin: 08/04/19 02:44 Dose: 2 spray Sodium Chloride (Saline Flush) 10 ml FLUSH ASDIRECTED PRN PRN Reason: Keep Vein Open Sodium Chloride (Saline Flush) 2.5 ml FLUSH ASDIRECTED PRN PRN Reason: Keep Vein Open Discontinued Medications Benzocaine (Hurricaine One 20%) Confirm Administered Dose 2 each MUCMEM .STK- MED ONE Stop: 08/03/19 14:59 Last Admin: 08/03/19 15:19 Dose: Not Given Benzocaine (Hurricaine One 20%) 2 each MUCMEM ONETIME ONE Stop: 08/03/19 15:16 Last Admin: 08/03/19 15:16 Dose: 2 each Al Hydroxide/Mg Hydroxide 15 (ml/ Lidocaine HCl 5 ml) 0 ml PO ONETIME ONE Stop: 08/03/19 10:27 Last Admin: 08/03/19 11:05 Dose: 1 each Sodium Chloride (Normal Saline) 1,000 mls @ 125 mls/hr IV STAT ONE Stop: 08/03/19 22:41 Last Admin: 08/03/19 15:16 Dose: 125 mls/hr Ondansetron HCl (Zofran) 4 mg IVPUSH ONETIME ONE Stop: 08/03/19 11:25 Last Admin: 08/03/19 11:45 Dose: 4 mg Ondansetron HCl (Zofran) 4 mg IVPUSH ONETIME ONE Stop: 08/03/19 13:02 Last Admin: 08/03/19 13:12 Dose: Not Given Promethazine HCl (Phenergan) 25 mg IM ONETIME ONE Stop: 08/03/19 13:06 Last Admin: 08/03/19 13:12 Dose: 25 mg Promethazine HCl (Phenergan) Confirm Administered Dose 25 mg .ROUTE .STK-MED ONE Stop: 08/03/19 13:07 Last Admin: 08/03/19 13:13 Dose: Not Given - Exam Quality Assessment: No: Supplemental Oxygen General: Alert, Oriented, Cooperative, No Acute Distress, Other (Ambulating with a frontwheel walker) HEENT: Pupils Equal, Pupils Reactive, EOMI. No: Mucous Membr. Moist/[place] (Dry) Neck: Supple, Trachea Midline Lungs: Clear to Auscultation, Normal Respiratory Effort Cardiovascular: Regular Rate, Regular Rhythm GI/Abdominal Exam: Normal Bowel Sounds, Soft, Non-Tender, No Distention Back Exam: Normal Inspection. No: Full Range of Motion (Age appropriate) Extremities: Normal Inspection, No Pedal Edema Skin: Warm, Dry, Intact Neurological: No New Focal Deficit Psy/Mental Status: Alert, Normal Affect, Normal Mood - Problem List & Annotations (1) Small bowel obstruction SNOMED Code(s): 137780927 Code(s): K56.609 - UNSP INTESTNL OBST, UNSP TO PARTIAL VERSUS COMPLETE OBST Status: Acute Priority: High Current Visit: Yes (2) BENIGNO (acute kidney injury) SNOMED Code(s): 39898260, 09576490 Code(s): N17.9 - ACUTE KIDNEY FAILURE, UNSPECIFIED Status: Acute Current Visit: No (3) Ambulatory dysfunction SNOMED Code(s): 506758381 Code(s): R26.2 - DIFFICULTY IN WALKING, NOT ELSEWHERE CLASSIFIED Status: Acute Current Visit: No (4) Anemia SNOMED Code(s): 331177820 Code(s): D64.9 - ANEMIA, UNSPECIFIED Status: Acute Priority: Medium Current Visit: No Qualifiers: Anemia type: unspecified type Qualified Code(s): D64.9 - Anemia, unspecified - Problem List Review Problem List Initiated/Reviewed/Updated: Yes - My Orders Last 24 Hours: My Active Orders 08/03/19 23:32 HYDROmorphone [Dilaudid] 1 mg IVPUSH Q2H PRN 08/03/19 23:34 Ondansetron [Zofran] 4 mg IVPUSH Q4H PRN 08/03/19 23:37 Phenol [Chloraseptic Throat [place]] See Dose Instructions MUCMEM Q2H PRN 08/04/19 08:30 Resuscitation Status Stat - Assessment Assessment:: The patient is a 68-year-old lady who is doing much better today with regards to her high-grade bowel obstruction. She has denied any additional pain and her examination is benign. For now the patient was kept in hospitalization. I've ordered repeat laboratory studies. I've also ordered repeat abdominal x-ray to monitor her bowel gas pattern. The patient has been encouraged to continue ambulating. Her NG tube was removed. The patient's diet will be advanced as tolerated. The patient should be appropriate for discharge in the morning.
--- NOTE | 2019-08-04 08:48 | CR ---
INDICATION: Small bowel obstruction recheck. TECHNIQUE: Four views. FINDINGS: NG tube in place, tip appears to be at the gastroesophageal junction. Decrease in the amount of small bowel gas/distention. No definite free air. Gas is present in the colon. There appears to be a pessary type device in the midline lower pelvis. Atherosclerotic calcification aortic iliac arteries. Levoscoliosis. IMPRESSION: Improved bowel gas pattern since CT of 1 day ago. Gas now identified in the colon. NG tube tip appears to be at the gastroesophageal junction. Dictated by Manpreet Joyce MD @ Aug 04 2019 8:42AM Signed by Dr. Manpreet Joyce @ Aug 04 2019 8:46AM
--- NOTE | 2019-08-04 09:41 | PCM.CONSN ---
- General Info Date of Service: 08/04/19 Admission Dx/Problem (Free Text): High grade SBO Subjective Update: States she feels "1000%" better. Passing gas and had a BM. Functional Status: Reports: Pain Controlled - Review of Systems General: Reports: Fatigue. Denies: Fever, Weakness HEENT: Reports: No Symptoms Pulmonary: Denies: Shortness of Breath Cardiovascular: Denies: Chest Pain Gastrointestinal: Denies: Constipation, Decreased Appetite, Diarrhea, Nausea, Vomiting Genitourinary: Reports: No Symptoms Musculoskeletal: Reports: No Symptoms Skin: Reports: No Symptoms Neurological: Reports: No Symptoms Psychiatric: Reports: No Symptoms - Patient Data Vitals - Most Recent: Last Vital Signs Temp 97.7 F 08/04/19 04:29 Pulse 100 08/04/19 04:29 Resp 18 08/04/19 04:29 BP 130/64 08/04/19 04:29 Pulse Ox 94 L 08/04/19 04:29 Weight - Most Recent: 168 lb 14.4 oz I&O - Last 24 Hours: Intake & Output 08/03/19 08/04/19 08/04/19 19:59 03:59 11:59 Intake Total 1404 Output Total 300 Balance 1104 Lab Results Last 24 Hours: Laboratory Results - last 24 hr 08/03/19 08/03/19 08/03/19 Range/Units 10:30 10:30 10:30 WBC 10.01 (4.0-11.0) K/uL RBC 4.53 (4.30-5.90) M/uL Hgb 13.2 (12.0-16.0) g/dL Hct 41.6 (36.0-46.0) % MCV 91.8 (80.0-98.0) fL MCH 29.1 (27.0-32.0) pg MCHC 31.7 (31.0-37.0) g/dL RDW Std Deviation 47.8 (28.0-62.0) fl RDW Coeff of Shaun 14 (11.0-15.0) % Plt Count 276 (150-400) K/uL MPV 9.50 (7.40-12.00) fL Neut % (Auto) 75.6 (48.0-80.0) % Lymph % (Auto) 17.6 (16.0-40.0) % [place] % (Auto) 5.5 (0.0-15.0) % Eos % (Auto) 1.1 (0.0-7.0) % Baso % (Auto) 0.2 (0.0-1.5) % Neut # (Auto) 7.6 H (1.4-5.7) K/uL Lymph # (Auto) 1.8 (0.6-2.4) K/uL [place] # (Auto) 0.6 (0.0-0.8) K/uL Eos # (Auto) 0.1 (0.0-0.7) K/uL Baso # (Auto) 0.0 (0.0-0.1) K/uL Nucleated RBC % 0.0 /100WBC Nucleated RBCs # 0 K/uL INR 1.38 Sodium 140 (136-145) mmol/L Potassium 4.1 (3.5-5.1) mmol/L Chloride 101 (98-107) mmol/L Carbon Dioxide 27.9 (21.0-32.0) mmol/L BUN 19 H (7.0-18.0) mg/dL Creatinine 1.1 H (0.6-1.0) mg/dL Est Cr Clr Drug Dosing TNP Estimated GFR (MDRD) 49.4 ml/min Glucose 149 H (74-106) mg/dL Calcium 9.8 (8.5-10.1) mg/dL Total Bilirubin 0.5 (0.2-1.0) mg/dL AST 21 (15-37) IU/L ALT 20 (14-63) IU/L Alkaline Phosphatase 152 H (46-116) U/L Troponin I < 0.050 (0.000-0.056) ng/mL B-Natriuretic Peptide (<100) PG/ML Total Protein 7.9 (6.4-8.2) g/dL Albumin 3.7 (3.4-5.0) g/dL Globulin 4.2 H (2.6-4.0) g/dL Albumin/Globulin Ratio 0.9 (0.9-1.6) Lipase 195 (73-393) U/L TSH 3rd Generation (0.36-3.74) uIU/mL Urine Color Urine Appearance Urine pH (5.0-8.0) Ur Specific [place] (1.001-1.035) Urine Protein (NEGATIVE) mg/dL Urine Glucose (UA) (NEGATIVE) mg/dL Urine Ketones (NEGATIVE) mg/dL Urine Occult Blood (NEGATIVE) Urine Nitrite (NEGATIVE) Urine Bilirubin (NEGATIVE) Urine Ictotest Urine Urobilinogen (<2.0) EU/dL Ur Leukocyte Esterase (NEGATIVE) Urine RBC (0-2/HPF) Urine WBC (0-5/HPF) Ur Epithelial Cells (NONE-FEW) Urine Bacteria (NEGATIVE) Urine Opiates Screen (NEGATIVE) Ur Oxycodone Screen (NEGATIVE) Urine Methadone Screen (NEGATIVE) Ur Barbiturates Screen (NEGATIVE) Ur Phencyclidine Scrn (NEGATIVE) Ur Amphetamine Screen (NEGATIVE) U Methamphetamines Scrn (NEGATIVE) U Benzodiazepines Scrn (NEGATIVE) U Cocaine Metab Screen (NEGATIVE) U Marijuana (THC) Screen (NEGATIVE) Ethyl Alcohol mg/dL 08/03/19 08/03/19 08/03/19 Range/Units 10:30 10:30 12:48 WBC (4.0-11.0) K/uL RBC (4.30-5.90) M/uL Hgb (12.0-16.0) g/dL Hct (36.0-46.0) % MCV (80.0-98.0) fL MCH (27.0-32.0) pg MCHC (31.0-37.0) g/dL RDW Std Deviation (28.0-62.0) fl RDW Coeff of Shaun (11.0-15.0) % Plt Count (150-400) K/uL MPV (7.40-12.00) fL Neut % (Auto) (48.0-80.0) % Lymph % (Auto) (16.0-40.0) % [place] % (Auto) (0.0-15.0) % Eos % (Auto) (0.0-7.0) % Baso % (Auto) (0.0-1.5) % Neut # (Auto) (1.4-5.7) K/uL Lymph # (Auto) (0.6-2.4) K/uL [place] # (Auto) (0.0-0.8) K/uL Eos # (Auto) (0.0-0.7) K/uL Baso # (Auto) (0.0-0.1) K/uL Nucleated RBC % /100WBC Nucleated RBCs # K/uL INR Sodium (136-145) mmol/L Potassium (3.5-5.1) mmol/L Chloride (98-107) mmol/L Carbon Dioxide (21.0-32.0) mmol/L BUN (7.0-18.0) mg/dL Creatinine (0.6-1.0) mg/dL Est Cr Clr Drug Dosing Estimated GFR (MDRD) ml/min Glucose (74-106) mg/dL Calcium (8.5-10.1) mg/dL Total Bilirubin (0.2-1.0) mg/dL AST (15-37) IU/L ALT (14-63) IU/L Alkaline Phosphatase (46-116) U/L Troponin I (0.000-0.056) ng/mL B-Natriuretic Peptide 221 H (<100) PG/ML Total Protein (6.4-8.2) g/dL Albumin (3.4-5.0) g/dL Globulin (2.6-4.0) g/dL Albumin/Globulin Ratio (0.9-1.6) Lipase (73-393) U/L TSH 3rd Generation 4.36 H (0.36-3.74) uIU/mL Urine Color YELLOW Urine Appearance SLT CLOUDY Urine pH 7.5 (5.0-8.0) Ur Specific [place] 1.015 (1.001-1.035) Urine Protein 30 H (NEGATIVE) mg/dL Urine Glucose (UA) NEGATIVE (NEGATIVE) mg/dL Urine Ketones TRACE H (NEGATIVE) mg/dL Urine Occult Blood TRACE-INTACT H (NEGATIVE) Urine Nitrite NEGATIVE (NEGATIVE) Urine Bilirubin SMALL H (NEGATIVE) Urine Ictotest NEGATIVE Urine Urobilinogen 4.0 H (<2.0) EU/dL Ur Leukocyte Esterase TRACE H (NEGATIVE) Urine RBC 0-3 (0-2/HPF) Urine WBC 0-2 (0-5/HPF) Ur Epithelial Cells FEW (NONE-FEW) Urine Bacteria FEW (NEGATIVE) Urine Opiates Screen (NEGATIVE) Ur Oxycodone Screen (NEGATIVE) Urine Methadone Screen (NEGATIVE) Ur Barbiturates Screen (NEGATIVE) Ur Phencyclidine Scrn (NEGATIVE) Ur Amphetamine Screen (NEGATIVE) U Methamphetamines Scrn (NEGATIVE) U Benzodiazepines Scrn (NEGATIVE) U Cocaine Metab Screen (NEGATIVE) U Marijuana (THC) Screen (NEGATIVE) Ethyl Alcohol < 3.0 mg/dL 08/03/19 08/04/19 08/04/19 Range/Units 12:48 07:18 07:18 WBC 10.55 (4.0-11.0) K/uL RBC 4.13 L (4.30-5.90) M/uL Hgb 11.9 L (12.0-16.0) g/dL Hct 38.7 (36.0-46.0) % MCV 93.7 (80.0-98.0) fL MCH 28.8 (27.0-32.0) pg MCHC 30.7 L (31.0-37.0) g/dL RDW Std Deviation 49.3 (28.0-62.0) fl RDW Coeff of Shaun 15 (11.0-15.0) % Plt Count 261 (150-400) K/uL MPV 9.90 (7.40-12.00) fL Neut % (Auto) 82.7 H (48.0-80.0) % Lymph % (Auto) 10.2 L (16.0-40.0) % [place] % (Auto) 7.0 (0.0-15.0) % Eos % (Auto) 0.0 (0.0-7.0) % Baso % (Auto) 0.1 (0.0-1.5) % Neut # (Auto) 8.7 H (1.4-5.7) K/uL Lymph # (Auto) 1.1 (0.6-2.4) K/uL [place] # (Auto) 0.7 (0.0-0.8) K/uL Eos # (Auto) 0.0 (0.0-0.7) K/uL Baso # (Auto) 0.0 (0.0-0.1) K/uL Nucleated RBC % 0.0 /100WBC Nucleated RBCs # 0 K/uL INR Sodium 147 H (136-145) mmol/L Potassium 3.8 (3.5-5.1) mmol/L Chloride 109 H (98-107) mmol/L Carbon Dioxide 29.1 (21.0-32.0) mmol/L BUN 25 H (7.0-18.0) mg/dL Creatinine 1.0 (0.6-1.0) mg/dL Est Cr Clr Drug Dosing 38.68 Estimated GFR (MDRD) 55.1 ml/min Glucose 130 H (74-106) mg/dL Calcium 8.1 L (8.5-10.1) mg/dL Total Bilirubin (0.2-1.0) mg/dL AST (15-37) IU/L ALT (14-63) IU/L Alkaline Phosphatase (46-116) U/L Troponin I (0.000-0.056) ng/mL B-Natriuretic Peptide (<100) PG/ML Total Protein (6.4-8.2) g/dL Albumin (3.4-5.0) g/dL Globulin (2.6-4.0) g/dL Albumin/Globulin Ratio (0.9-1.6) Lipase (73-393) U/L TSH 3rd Generation (0.36-3.74) uIU/mL Urine Color Urine Appearance Urine pH (5.0-8.0) Ur Specific [place] (1.001-1.035) Urine Protein (NEGATIVE) mg/dL Urine Glucose (UA) (NEGATIVE) mg/dL Urine Ketones (NEGATIVE) mg/dL Urine Occult Blood (NEGATIVE) Urine Nitrite (NEGATIVE) Urine Bilirubin (NEGATIVE) Urine Ictotest Urine Urobilinogen (<2.0) EU/dL Ur Leukocyte Esterase (NEGATIVE) Urine RBC (0-2/HPF) Urine WBC (0-5/HPF) Ur Epithelial Cells (NONE-FEW) Urine Bacteria (NEGATIVE) Urine Opiates Screen NEGATIVE (NEGATIVE) Ur Oxycodone Screen POSITIVE (NEGATIVE) Urine Methadone Screen POSITIVE (NEGATIVE) Ur Barbiturates Screen NEGATIVE (NEGATIVE) Ur Phencyclidine Scrn NEGATIVE (NEGATIVE) Ur Amphetamine Screen NEGATIVE (NEGATIVE) U Methamphetamines Scrn NEGATIVE (NEGATIVE) U Benzodiazepines Scrn NEGATIVE (NEGATIVE) U Cocaine Metab Screen NEGATIVE (NEGATIVE) U Marijuana (THC) Screen NEGATIVE (NEGATIVE) Ethyl Alcohol mg/dL Med Orders - Current: Current Medications Hydromorphone HCl (Dilaudid) 1 mg IVPUSH Q2H PRN PRN Reason: Pain (severe 7-10) Last Admin: 08/04/19 09:28 Dose: 1 mg Sodium Chloride (Normal Saline) 1,000 mls @ 125 mls/hr IV ASDIRECTED [place] Last Admin: 08/04/19 09:28 Dose: 125 mls/hr Morphine Sulfate (Morphine) 2 mg IVPUSH Q3H PRN PRN Reason: Pain Last Admin: 08/03/19 21:12 Dose: 2 mg Ondansetron HCl (Zofran) 4 mg IVPUSH Q4H PRN PRN Reason: Nausea Last Admin: 08/04/19 00:07 Dose: 4 mg Phenol/Menthol (Chloraseptic Throat [place]) 0 ml MUCMEM Q2H PRN PRN Reason: Pain (mild 1-3) Last Admin: 08/04/19 02:44 Dose: 2 spray Sodium Chloride (Saline Flush) 10 ml FLUSH ASDIRECTED PRN PRN Reason: Keep Vein Open Sodium Chloride (Saline Flush) 2.5 ml FLUSH ASDIRECTED PRN PRN Reason: Keep Vein Open Discontinued Medications Benzocaine (Hurricaine One 20%) Confirm Administered Dose 2 each MUCMEM .STK- MED ONE Stop: 08/03/19 14:59 Last Admin: 08/03/19 15:19 Dose: Not Given Benzocaine (Hurricaine One 20%) 2 each MUCMEM ONETIME ONE Stop: 08/03/19 15:16 Last Admin: 08/03/19 15:16 Dose: 2 each Al Hydroxide/Mg Hydroxide 15 (ml/ Lidocaine HCl 5 ml) 0 ml PO ONETIME ONE Stop: 08/03/19 10:27 Last Admin: 08/03/19 11:05 Dose: 1 each Sodium Chloride (Normal Saline) 1,000 mls @ 125 mls/hr IV STAT ONE Stop: 08/03/19 22:41 Last Admin: 08/03/19 15:16 Dose: 125 mls/hr Ondansetron HCl (Zofran) 4 mg IVPUSH ONETIME ONE Stop: 08/03/19 11:25 Last Admin: 08/03/19 11:45 Dose: 4 mg Ondansetron HCl (Zofran) 4 mg IVPUSH ONETIME ONE Stop: 08/03/19 13:02 Last Admin: 08/03/19 13:12 Dose: Not Given Promethazine HCl (Phenergan) 25 mg IM ONETIME ONE Stop: 08/03/19 13:06 Last Admin: 08/03/19 13:12 Dose: 25 mg Promethazine HCl (Phenergan) Confirm Administered Dose 25 mg .ROUTE .STK-MED ONE Stop: 08/03/19 13:07 Last Admin: 08/03/19 13:13 Dose: Not Given - Exam General: Alert, Oriented, Cooperative, No Acute Distress HEENT: Pupils Equal, Pupils Reactive. No: Scleral Icterus Neck: Supple Lungs: Clear to Auscultation, Normal Respiratory Effort Cardiovascular: Regular Rate, Regular Rhythm GI/Abdominal Exam: Normal Bowel Sounds, Soft, Non-Tender, No Distention (Female) Exam: Deferred Extremities: Normal Inspection Skin: Warm, Dry, Intact Neurological: No New Focal Deficit Psy/Mental Status: Alert, Normal Affect Consult PN Assessment/Plan Procedures: Procedures AIRWAY INHALATION TREATMENT (07/04/19) ASSAY OF CK (CPK) (11/21/17) ASSAY OF FREE THYROXINE (06/28/19) ASSAY OF IRON (11/08/17) ASSAY OF LACTIC ACID (07/20/17) ASSAY OF MAGNESIUM (09/27/18) ASSAY OF NATRIURETIC PEPTIDE (10/23/18) ASSAY OF TROPONIN QUANT (10/23/18) ASSAY THYROID STIM HORMONE (06/28/19) BLOOD TRANSFUSION SERVICE (11/08/17) BLOOD TYPING SEROLOGIC ABO (11/08/17) BLOOD TYPING SEROLOGIC RH(D) (11/08/17) CHEST X-RAY 1 VIEW FRONTAL (09/24/17) CHEST X-RAY 2VW FRONTAL&LATL (07/20/17) CO/MEMBANE DIFFUSE CAPACITY (06/22/18) COMPATIBILITY TEST ANTIGLOB (11/08/17) COMPATIBILITY TEST INCUBATE (11/08/17) COMPATIBILITY TEST SPIN (11/08/17) COMPLETE CBC AUTOMATED (11/21/17) COMPLETE CBC W/AUTO DIFF WBC (07/04/19) COMPREHEN METABOLIC PANEL (07/04/19) CREATINE MB FRACTION (11/21/17) CRITICAL CARE ADDL 30 MIN (10/23/18) CRITICAL CARE FIRST HOUR (10/23/18) CT ABD & PELV W/CONTRAST (06/28/19) CT HEAD/BRAIN W/O DYE (12/05/17) CT PELVIS W/O DYE (07/02/19) DRUG TEST PRSMV DIR OPT OBS (07/20/17) ELECTROCARDIOGRAM TRACING (10/23/18) EMERGENCY DEPT VISIT (07/04/19) EMERGENCY DEPT VISIT (11/08/18) EMERGENCY DEPT VISIT (09/27/18) EMERGENCY DEPT VISIT (01/08/18) EMERGENCY DEPT VISIT (12/05/17) EMERGENCY DEPT VISIT (10/02/17) EMERGENCY DEPT VISIT (09/25/17) EMERGENCY DEPT VISIT (09/24/17) EMERGENCY DEPT VISIT (01/15/17) EMERGENCY DEPT VISIT (12/11/16) EMERGENCY DEPT VISIT (11/28/16) EVALUATION OF WHEEZING (06/22/18) FLUOROGUIDE FOR VEIN DEVICE (11/08/17) FREE ASSAY (FT-3) (06/28/19) GLYCOSYLATED HEMOGLOBIN TEST (07/20/17) HEMATOCRIT (11/08/17) HEMOGLOBIN (11/08/17) HEPATIC FUNCTION PANEL (11/17/17) HEPATITIS B SURFACE AG IA (10/23/18) HEPATITIS C AB TEST (10/23/18) HIV-1 AG W/HIV-1 & HIV-2 AB (10/23/18) HYDRATE IV INFUSION ADD-ON (07/02/19) IIV NO PRSV INCREASED AG IM (09/09/18) INFLUENZA ASSAY W/OPTIC (09/27/18) INSERT EMERGENCY AIRWAY (10/23/18) INSERT TEMP BLADDER CATH (10/23/18) INSJ PICC 5 YR+ W/O IMAGING (11/08/17) LIPID PANEL (07/20/17) METABOLIC PANEL TOTAL CA (07/04/19) OFFICE/OUTPATIENT VISIT EST (06/28/19) OFFICE/OUTPATIENT VISIT EST (06/22/18) OFFICE/OUTPATIENT VISIT EST (02/27/18) OFFICE/OUTPATIENT VISIT EST (09/12/17) PROTHROMBIN TIME (07/16/19) PT EVAL MOD COMPLEX 30 MIN (07/04/19) PULM FUNCTION TEST BY GAS (06/22/18) RBC ANTIBODY SCREEN (11/08/17) ROUTINE VENIPUNCTURE (07/04/19) THER/PROPH/DIAG INJ IV PUSH (07/02/19) THER/PROPH/DIAG INJ SC/IM (01/15/17) THERAPEUTIC ACTIVITIES (07/04/19) THROMBOPLASTIN TIME PARTIAL (11/08/17) TTE W/DOPPLER COMPLETE (06/23/18) TX/PRO/DX INJ NEW DRUG ADDON (10/23/18) TX/PRO/DX INJ SAME DRUG DYNAMIC ETCHING PROCESSOR (01/12/18) UR ALBUMIN SEMIQUANTITATIVE (05/05/16) URINALYSIS AUTO W/SCOPE (07/04/19) URINE CULTURE/COLONY COUNT (09/27/18) US GUIDE VASCULAR ACCESS (11/08/17) X-RAY EXAM CHEST 1 VIEW (10/23/18) X-RAY EXAM CHEST 2 VIEWS (10/09/18) X-RAY EXAM HIP UNI 1 VIEW (09/25/17) X-RAY EXAM HIP UNI 2-3 VIEWS (07/02/19) X-RAY EXAM L-S SPINE 2/3 VWS (01/15/17) X-RAY EXAM OF FINGER(S) (11/28/16) X-RAY EXAM OF SHOULDER (11/28/16) X-RAY EXAM RIBS UNI 2 VIEWS (09/25/17) (1) Aortic valve replaced SNOMED Code(s): 3147065457136, 20375699, 2536555457960 Code(s): Z95.2 - PRESENCE OF PROSTHETIC HEART VALVE Priority: Medium Current Visit: Yes (2) Small bowel obstruction SNOMED Code(s): 448964032 Code(s): K56.609 - UNSP INTESTNL OBST, UNSP TO PARTIAL VERSUS COMPLETE OBST Priority: High Current Visit: Yes (3) Anemia SNOMED Code(s): 480303684 Code(s): D64.9 - ANEMIA, UNSPECIFIED Priority: Medium Current Visit: No Qualifiers: Anemia type: unspecified type Qualified Code(s): D64.9 - Anemia, unspecified (4) Atrial fibrillation with RVR SNOMED Code(s): 077600476506952 Code(s): I48.91 - UNSPECIFIED ATRIAL FIBRILLATION Priority: Medium Current Visit: No (5) Atrial flutter SNOMED Code(s): 5362272 Code(s): I48.92 - UNSPECIFIED ATRIAL FLUTTER Priority: Medium Current Visit: No (6) Elevated INR SNOMED Code(s): 195033379 Code(s): R79.1 - ABNORMAL COAGULATION PROFILE Priority: Medium Current Visit: No (7) H/O prosthetic aortic valve replacement SNOMED Code(s): 8886367167136, 5496536110104 Code(s): Z95.2 - PRESENCE OF PROSTHETIC HEART VALVE Priority: High Current Visit: No Problem List Initiated/Reviewed/Updated: Yes Plan: Abdominal films reviewed--n/g is in distal esophagus above diaphragm. Patient has been passing gas and had a BM. States she feels much better and denies abdominal pain. Wants something to drink. From my standpoint, okay to remove N/G. Consider full liquids per Hospitalist team.
[2019-08-04] MEDS ORDERED: Methadone 10 MG Tab PO PRN (18:15)
[2019-08-04] MEDS: oxyCODONE 5 MG Tab PO SCH ×2 (18:37→23:10)
[2019-08-04] MEDS ORDERED: Warfarin 2 MG Tab PO SCH (18:45)
[2019-08-04] MEDS: Digoxin 125 MCG Tab PO SCH (20:19)
[2019-08-04] MEDS: Lisinopril 5 MG Tab PO SCH (20:20)
[2019-08-05] MEDS: HYDROmorphone 1 MG/ML Syringe IVPUSH PRN ×5 (01:16→12:43)
[2019-08-05] MEDS: Sodium Chloride 0.9% 1,000 ML IV SCH (01:17)
[2019-08-05] MEDS: oxyCODONE 5 MG Tab PO SCH ×3 (03:20→11:56)
[2019-08-05] MEDS ORDERED: LORazepam 2 MG/ML SDV IVPUSH ONE (04:59)
--- NOTE | 2019-08-05 07:14 | PCM.DCSUM1 ---
Discharge Summary - Hospital Course Free Text/Narrative:: The patient was admitted secondary to small bowel obstruction. Diagnosis: Stroke: No - Discharge Data Discharge Date: 08/05/19 Discharge Disposition: Home, Self-Care 01 Condition: Stable - Referral to Home Health Primary Care Physician: Magdiel Lewis MD - Discharge Diagnosis/Problem(s) (1) Small bowel obstruction SNOMED Code(s): 660746729 ICD Code: K56.609 - UNSP INTESTNL OBST, UNSP TO PARTIAL VERSUS COMPLETE OBST Status: Resolved Priority: High (2) BENIGNO (acute kidney injury) SNOMED Code(s): 89867068, 76695310 ICD Code: N17.9 - ACUTE KIDNEY FAILURE, UNSPECIFIED Status: Resolved Priority: High (3) Ambulatory dysfunction SNOMED Code(s): 418902148 ICD Code: R26.2 - DIFFICULTY IN WALKING, NOT ELSEWHERE CLASSIFIED Status: Acute (4) Anemia SNOMED Code(s): 966393228 ICD Code: D64.9 - ANEMIA, UNSPECIFIED Status: Chronic Priority: Medium Qualifiers: Anemia type: unspecified type Qualified Code(s): D64.9 - Anemia, unspecified - Patient Summary/Data Hospital Course: The patient is a 60-year-old lady who was admitted on August 03, 2019 secondary to small bowel obstruction. The patient has a history of pelvic fracture and had been undergoing physical therapy. She also had been taking large amounts of pain medications. The patient initially had been admitted, placed nothing by mouth, IV fluids were initiated and surgery was consulted. The patient had been taking methadone 10 mg by mouth every 6 hours as well as oxycodone 15 mg by mouth every 4 hours. She also has a history of atrial fibrillation and had been anticoagulated with the use of warfarin. Her INR upon discharge was noted to be at 1.52. She has been recommended to continue her INR follow-ups and her Coumadin as directed. The patient also had been treated conservatively and by day of discharge she had recovered completely. The patient had reported flatus as well as bowel movements. The patient on the night before discharge was noted to have severe anxiety and she had been given a 0.5 mg of Ativan for this. This seemed to help her. The patient says that she feels like she can go home. The patient has been recommended to continue with her diet as tolerated. She is also to have activity as tolerated. The patient is hemodynamically stable and she's been discharged home with recommendations listed above. - Patient Instructions Diet: Heart Healthy Diet Activity: As Tolerated - Discharge Plan *PRESCRIPTION DRUG MONITORING PROGRAM REVIEWED*: No *COPY OF PRESCRIPTION DRUG MONITORING REPORT IN PATIENT IVET: No Home Medications: Home Meds Methadone 10 mg PO Q6H PRN 01/12/18 [History] DULoxetine [Cymbalta] 60 mg PO DAILY 10/10/18 [History] Carvedilol 12.5 mg PO BIDMEALS 11/08/18 [History] Digoxin [Lanoxin] 62.5 mcg PO BID 11/08/18 [History] Levothyroxine 50 mcg PO ACBREAKFAST 11/08/18 [History] Lisinopril 2.5 mg PO BID 11/08/18 [History] Multivitamin with Iron [Multivitamins with Iron] 2 tab PO DAILY 11/08/18 [ History] Bumetanide 2 mg PO DAILY 07/05/19 [History] Warfarin [Coumadin] 6 mg PO DAILY 14 Days #14 tab 07/12/19 [Rx] oxyCODONE 15 mg PO Q4H 7 Days #0 tablet 07/12/19 [Rx] B-Complex with Vitamin C [Super B Complex-Vitamin C] 1 each PO DAILY 08/03/19 [ History] Calcium Carb/Vitamin D3/Vit K1 [Viactiv 650 mg-12.5 Mcg Chew] 2 each PO DAILY [History] Diltiazem [Dilacor XR] 240 mg PO DAILY 08/03/19 [History] Iron 18 mg PO DAILY 08/03/19 [History] Omeprazole Magnesium [Prilosec Otc] 40 mg PO DAILY 08/03/19 [History] Oxygen Therapy Mode: Room Air Patient Handouts: Small Bowel Obstruction, [id number] Forms: ED Department Discharge Referrals: Magdiel Lewis MD [Primary Care Provider] - - Discharge Summary/Plan Comment DC Time >30 min.: Yes - General Info Date of Service: 08/05/19 Admission Dx/Problem (Free Text: High grade SBO Subjective Update: The patient is doing much better today. She feels like she can go home. Functional Status: Reports: Pain Controlled - Review of Systems General: Reports: No Symptoms HEENT: Reports: No Symptoms Pulmonary: Reports: No Symptoms Cardiovascular: Reports: No Symptoms Gastrointestinal: Reports: No Symptoms Genitourinary: Reports: No Symptoms Musculoskeletal: Reports: No Symptoms Skin: Reports: No Symptoms Neurological: Reports: No Symptoms Psychiatric: Reports: No Symptoms - Patient Data Vitals - Most Recent: Last Vital Signs Temp 36.7 C 08/05/19 04:00 Pulse 89 08/05/19 04:00 Resp 18 08/05/19 04:00 BP 136/70 08/05/19 04:00 Pulse Ox 97 08/05/19 04:00 Weight - Most Recent: 76.612 kg I&O - Last 24 hours: Intake & Output 08/04/19 08/05/19 08/05/19 22:59 06:59 14:59 Intake Total 1979 3126 Output Total 600 Balance 1979 252 Lab Results - Last 24 hrs: Laboratory Results - last 24 hr 08/04/19 08/04/19 Range/Units 07:18 07:18 WBC 10.55 (4.0-11.0) K/uL RBC 4.13 L (4.30-5.90) M/uL Hgb 11.9 L (12.0-16.0) g/dL Hct 38.7 (36.0-46.0) % MCV 93.7 (80.0-98.0) fL MCH 28.8 (27.0-32.0) pg MCHC 30.7 L (31.0-37.0) g/dL RDW Std Deviation 49.3 (28.0-62.0) fl RDW Coeff of Shaun 15 (11.0-15.0) % Plt Count 261 (150-400) K/uL MPV 9.90 (7.40-12.00) fL Neut % (Auto) 82.7 H (48.0-80.0) % Lymph % (Auto) 10.2 L (16.0-40.0) % [place] % (Auto) 7.0 (0.0-15.0) % Eos % (Auto) 0.0 (0.0-7.0) % Baso % (Auto) 0.1 (0.0-1.5) % Neut # (Auto) 8.7 H (1.4-5.7) K/uL Lymph # (Auto) 1.1 (0.6-2.4) K/uL [place] # (Auto) 0.7 (0.0-0.8) K/uL Eos # (Auto) 0.0 (0.0-0.7) K/uL Baso # (Auto) 0.0 (0.0-0.1) K/uL Nucleated RBC % 0.0 /100WBC Nucleated RBCs # 0 K/uL Sodium 147 H (136-145) mmol/L Potassium 3.8 (3.5-5.1) mmol/L Chloride 109 H (98-107) mmol/L Carbon Dioxide 29.1 (21.0-32.0) mmol/L BUN 25 H (7.0-18.0) mg/dL Creatinine 1.0 (0.6-1.0) mg/dL Est Cr Clr Drug Dosing 38.68 mL/min Estimated GFR (MDRD) 55.1 ml/min Glucose 130 H (74-106) mg/dL Calcium 8.1 L (8.5-10.1) mg/dL Med Orders - Current: Current Medications Bumetanide (Bumex) 2 mg PO DAILY [facility] Carvedilol (Coreg) 12.5 mg PO BIDMEALS [facility] Digoxin (Lanoxin) 62.5 mcg PO BID [facility] Last Admin: 08/04/19 20:19 Dose: 62.5 mcg Diltiazem HCl (Cardizem Cd) 240 mg PO DAILY [facility] Duloxetine HCl (Cymbalta) 60 mg PO DAILY [facility] Hydromorphone HCl (Dilaudid) 1 mg IVPUSH Q2H PRN PRN Reason: Pain (severe 7-10) Last Admin: 08/05/19 06:50 Dose: 1 mg Sodium Chloride (Normal Saline) 1,000 mls @ 125 mls/hr IV ASDIRECTED [facility] Last Admin: 08/05/19 01:17 Dose: 125 mls/hr Levothyroxine Sodium (Synthroid) 50 mcg PO ACBREAKFAST [facility] Last Admin: 08/05/19 06:30 Dose: 50 mcg Lisinopril (Prinivil) 2.5 mg PO BID [facility] Last Admin: 08/04/19 20:20 Dose: 2.5 mg Methadone HCl (Methadone) 10 mg PO Q6H PRN PRN Reason: Pain Morphine Sulfate (Morphine) 2 mg IVPUSH Q3H PRN PRN Reason: Pain Last Admin: 08/03/19 21:12 Dose: 2 mg Multivitamins/Minerals (Thera M Plus) 2 tab PO DAILY [facility] Non-Formulary Medication (B-Complex With Vitamin C [Super B Complex-Vitamin C]) 1 each PO DAILY [facility] Non-Formulary Medication (Calcium Carb/Vitamin D3/Vit K1 [Viactiv 650 Mg-12.5 Mcg Chew]) 2 each PO DAILY [facility] Non-Formulary Medication (Iron [Iron]) 18 mg PO DAILY [facility] Omeprazole (Omeprazole) 40 mg PO ACBREAKFAST [facility] Last Admin: 08/05/19 06:30 Dose: 40 mg Ondansetron HCl (Zofran) 4 mg IVPUSH Q4H PRN PRN Reason: Nausea Last Admin: 08/04/19 14:34 Dose: 4 mg Oxycodone HCl (Oxycodone) 15 mg PO Q4H [facility] Last Admin: 08/05/19 06:32 Dose: Not Given Phenol/Menthol (Chloraseptic Throat [place]) 0 ml MUCMEM Q2H PRN PRN Reason: Pain (mild 1-3) Last Admin: 08/04/19 02:44 Dose: 2 spray Sodium Chloride (Saline Flush) 10 ml FLUSH ASDIRECTED PRN PRN Reason: Keep Vein Open Sodium Chloride (Saline Flush) 2.5 ml FLUSH ASDIRECTED PRN PRN Reason: Keep Vein Open Warfarin Sodium (Coumadin) 6 mg PO DAILY@1400 [facility] Last Admin: 08/04/19 18:42 Dose: 6 mg Discontinued Medications Benzocaine (Hurricaine One 20%) Confirm Administered Dose 2 each MUCMEM .STK- MED ONE Stop: 08/03/19 14:59 Last Admin: 08/03/19 15:19 Dose: Not Given Benzocaine (Hurricaine One 20%) 2 each MUCMEM ONETIME ONE Stop: 08/03/19 15:16 Last Admin: 08/03/19 15:16 Dose: 2 each Al Hydroxide/Mg Hydroxide 15 (ml/ Lidocaine HCl 5 ml) 0 ml PO ONETIME ONE Stop: 08/03/19 10:27 Last Admin: 08/03/19 11:05 Dose: 1 each Sodium Chloride (Normal Saline) 1,000 mls @ 125 mls/hr IV STAT ONE Stop: 08/03/19 22:41 Last Admin: 08/03/19 15:16 Dose: 125 mls/hr Lorazepam (Ativan) 0.5 mg IVPUSH ONETIME ONE Stop: 08/05/19 05:00 Last Admin: 08/05/19 05:10 Dose: 0.5 mg Ondansetron HCl (Zofran) 4 mg IVPUSH ONETIME ONE Stop: 08/03/19 11:25 Last Admin: 08/03/19 11:45 Dose: 4 mg Ondansetron HCl (Zofran) 4 mg IVPUSH ONETIME ONE Stop: 08/03/19 13:02 Last Admin: 08/03/19 13:12 Dose: Not Given Promethazine HCl (Phenergan) 25 mg IM ONETIME ONE Stop: 08/03/19 13:06 Last Admin: 08/03/19 13:12 Dose: 25 mg Promethazine HCl (Phenergan) Confirm Administered Dose 25 mg .ROUTE .STK-MED ONE Stop: 08/03/19 13:07 Last Admin: 08/03/19 13:13 Dose: Not Given - Exam Quality Assessment: Denies: Supplemental Oxygen General: Reports: Alert, Oriented, Cooperative, No Acute Distress HEENT: Reports: Pupils Equal, Pupils Reactive, EOMI. Denies: Mucous Membr. Moist/[place] (Dry) Neck: Reports: Supple, Trachea Midline Lungs: Reports: Clear to Auscultation, Normal Respiratory Effort Cardiovascular: Reports: Regular Rate, Regular Rhythm GI/Abdominal Exam: Normal Bowel Sounds, Soft, No Distention. No: Guarding, Rigid, Rebound Back Exam: Reports: Normal Inspection, Full Range of Motion Extremities: Normal Inspection, No Pedal Edema, Other (Uses frontwheel walker) Skin: Reports: Warm, Dry, Intact Neurological: Reports: No New Focal Deficit Psy/Mental Status: Reports: Alert, Normal Affect, Normal Mood
[2019-08-05] MEDS ORDERED: Levothyroxine 50 MCG Tab PO SCH (07:30)
[2019-08-05] MEDS ORDERED: Omeprazole 20 MG Cap.CR PO SCH (07:30)
[2019-08-05 07:42] LABS: BLOOD UREA NITROGEN,BUN 16 mg/dL (7.0-18.0); CHLORIDE,CL 110 mmol/L (98-107); GLUCOSE RANDOM 96 mg/dL (74-106); POTASSIUM,K 3.7 mmol/L (3.5-5.1); SODIUM,NA 146 mmol/L (136-145)
[2019-08-05] MEDS ORDERED: Carvedilol 12.5 MG Tab PO SCH (08:00)
[2019-08-05] MEDS: Digoxin 125 MCG Tab PO SCH (08:24)
[2019-08-05] MEDS: Lisinopril 5 MG Tab PO SCH (08:25)
[2019-08-05] MEDS ORDERED: B COMPLEX WITH VITAMIN C PO SCH (09:00)
[2019-08-05] MEDS ORDERED: Bumetanide 1 MG Tab PO SCH (09:00)
[2019-08-05] MEDS ORDERED: [UNRECOGNIZED DRUG - OTHER] PO SCH (09:00)
[2019-08-05] MEDS ORDERED: Multivitamins with Iron/Calcium/Folic Acid/Minerals Tab PO SCH (09:00)
[2019-08-05] MEDS ORDERED: Non-Formulary Medication 1 Each (Iron [Iron] 18 MG) PO SCH (09:00)
[2019-08-05] MEDS ORDERED: DULoxetine 60 MG Cap PO SCH (09:00)
[2019-08-05] MEDS ORDERED: Diltiazem 120 MG Cap.CD PO SCH (09:00)
--- NOTE | 2019-08-05 12:22 | PCM.CONSN ---
- General Info Date of Service: 08/05/19 Subjective Update: Patient is feeling much better. No N/V or abdominal pain. Continues to pass gas and have BMs. Functional Status: Reports: Pain Controlled, Tolerating Diet, Ambulating, Urinating - Review of Systems General: Denies: Fever, Weakness, Fatigue, Malaise HEENT: Reports: No Symptoms Pulmonary: Denies: Shortness of Breath, Pleuritic Chest Pain Cardiovascular: Denies: Chest Pain Gastrointestinal: Reports: Flatus. Denies: Abdominal Pain, Constipation, Decreased Appetite, Diarrhea, Nausea, Vomiting Genitourinary: Denies: Dysuria, Frequency, Burning Musculoskeletal: Reports: No Symptoms Skin: Reports: No Symptoms Neurological: Reports: No Symptoms Psychiatric: Reports: No Symptoms - Patient Data Vitals - Most Recent: Last Vital Signs Temp 96.3 F 08/05/19 08:00 Pulse 88 08/05/19 08:24 Resp 18 08/05/19 08:00 BP 160/85 H 08/05/19 08:25 Pulse Ox 95 08/05/19 08:00 Weight - Most Recent: 168 lb 14.4 oz I&O - Last 24 Hours: Intake & Output 08/05/19 08/05/19 08/05/19 03:59 11:59 19:59 Intake Total 3126 Output Total 600 Balance 2526 Lab Results Last 24 Hours: Laboratory Results - last 24 hr 08/05/19 08/05/19 08/05/19 Range/Units 07:20 07:20 07:20 WBC 9.03 (4.0-11.0) K/uL RBC 3.80 L (4.30-5.90) M/uL Hgb 11.0 L (12.0-16.0) g/dL Hct 36.1 (36.0-46.0) % MCV 95.0 (80.0-98.0) fL MCH 28.9 (27.0-32.0) pg MCHC 30.5 L (31.0-37.0) g/dL RDW Std Deviation 50.8 (28.0-62.0) fl RDW Coeff of Shaun 15 (11.0-15.0) % Plt Count 228 (150-400) K/uL MPV 9.70 (7.40-12.00) fL Neut % (Auto) 70.9 (48.0-80.0) % Lymph % (Auto) 17.3 (16.0-40.0) % [place] % (Auto) 10.2 (0.0-15.0) % Eos % (Auto) 1.4 (0.0-7.0) % Baso % (Auto) 0.2 (0.0-1.5) % Neut # (Auto) 6.4 H (1.4-5.7) K/uL Lymph # (Auto) 1.6 (0.6-2.4) K/uL [place] # (Auto) 0.9 H (0.0-0.8) K/uL Eos # (Auto) 0.1 (0.0-0.7) K/uL Baso # (Auto) 0.0 (0.0-0.1) K/uL Nucleated RBC % 0.0 /100WBC Nucleated RBCs # 0 K/uL INR 1.52 Sodium 146 H (136-145) mmol/L Potassium 3.7 (3.5-5.1) mmol/L Chloride 110 H (98-107) mmol/L Carbon Dioxide 29.0 (21.0-32.0) mmol/L BUN 16 (7.0-18.0) mg/dL Creatinine 0.9 (0.6-1.0) mg/dL Est Cr Clr Drug Dosing 42.97 mL/min Estimated GFR (MDRD) > 60.0 ml/min Glucose 96 (74-106) mg/dL Calcium 7.9 L (8.5-10.1) mg/dL [place] Results Last 24 Hours: Microbiology 08/03/19 12:48 Urine Culture - Final Urine, Clean Catch MIXED MAX >100,000 CFU/ML Med Orders - Current: Current Medications Bumetanide (Bumex) 2 mg PO DAILY [facility] Last Admin: 08/05/19 08:21 Dose: 2 mg Carvedilol (Coreg) 12.5 mg PO BIDMEALS [facility] Last Admin: 08/05/19 08:21 Dose: 12.5 mg Digoxin (Lanoxin) 62.5 mcg PO BID [facility] Last Admin: 08/05/19 08:24 Dose: 62.5 mcg Diltiazem HCl (Cardizem Cd) 240 mg PO DAILY [facility] Last Admin: 08/05/19 08:21 Dose: 240 mg Duloxetine HCl (Cymbalta) 60 mg PO DAILY [facility] Last Admin: 08/05/19 08:25 Dose: 60 mg Hydromorphone HCl (Dilaudid) 1 mg IVPUSH Q2H PRN PRN Reason: Pain (severe 7-10) Last Admin: 08/05/19 09:42 Dose: 1 mg Levothyroxine Sodium (Synthroid) 50 mcg PO ACBREAKFAST [facility] Last Admin: 08/05/19 06:30 Dose: 50 mcg Lisinopril (Prinivil) 2.5 mg PO BID [facility] Last Admin: 08/05/19 08:25 Dose: 2.5 mg Methadone HCl (Methadone) 10 mg PO Q6H PRN PRN Reason: Pain Morphine Sulfate (Morphine) 2 mg IVPUSH Q3H PRN PRN Reason: Pain Last Admin: 08/03/19 21:12 Dose: 2 mg Multivitamins/Minerals (Thera M Plus) 2 tab PO DAILY [facility] Last Admin: 08/05/19 08:20 Dose: 2 tab Non-Formulary Medication (B-Complex With Vitamin C [Super B Complex-Vitamin C]) 1 each PO DAILY [facility] Non-Formulary Medication (Calcium Carb/Vitamin D3/Vit K1 [Viactiv 650 Mg-12.5 Mcg Chew]) 2 each PO DAILY [facility] Non-Formulary Medication (Iron [Iron]) 18 mg PO DAILY [facility] Omeprazole (Omeprazole) 40 mg PO ACBREAKFAST [facility] Last Admin: 08/05/19 06:30 Dose: 40 mg Ondansetron HCl (Zofran) 4 mg IVPUSH Q4H PRN PRN Reason: Nausea Last Admin: 08/04/19 14:34 Dose: 4 mg Oxycodone HCl (Oxycodone) 15 mg PO Q4H [facility] Last Admin: 08/05/19 11:56 Dose: Not Given Phenol/Menthol (Chloraseptic Throat [place]) 0 ml MUCMEM Q2H PRN PRN Reason: Pain (mild 1-3) Last Admin: 08/04/19 02:44 Dose: 2 spray Sodium Chloride (Saline Flush) 10 ml FLUSH ASDIRECTED PRN PRN Reason: Keep Vein Open Sodium Chloride (Saline Flush) 2.5 ml FLUSH ASDIRECTED PRN PRN Reason: Keep Vein Open Warfarin Sodium (Coumadin) 6 mg PO DAILY@1400 [facility] Last Admin: 08/04/19 18:42 Dose: 6 mg Discontinued Medications Benzocaine (Hurricaine One 20%) Confirm Administered Dose 2 each MUCMEM .STK- MED ONE Stop: 08/03/19 14:59 Last Admin: 08/03/19 15:19 Dose: Not Given Benzocaine (Hurricaine One 20%) 2 each MUCMEM ONETIME ONE Stop: 08/03/19 15:16 Last Admin: 08/03/19 15:16 Dose: 2 each Al Hydroxide/Mg Hydroxide 15 (ml/ Lidocaine HCl 5 ml) 0 ml PO ONETIME ONE Stop: 08/03/19 10:27 Last Admin: 08/03/19 11:05 Dose: 1 each Sodium Chloride (Normal Saline) 1,000 mls @ 125 mls/hr IV STAT ONE Stop: 08/03/19 22:41 Last Admin: 08/03/19 15:16 Dose: 125 mls/hr Sodium Chloride (Normal Saline) 1,000 mls @ 125 mls/hr IV ASDIRECTED [facility] Last Admin: 08/05/19 01:17 Dose: 125 mls/hr Lorazepam (Ativan) 0.5 mg IVPUSH ONETIME ONE Stop: 08/05/19 05:00 Last Admin: 08/05/19 05:10 Dose: 0.5 mg Ondansetron HCl (Zofran) 4 mg IVPUSH ONETIME ONE Stop: 08/03/19 11:25 Last Admin: 08/03/19 11:45 Dose: 4 mg Ondansetron HCl (Zofran) 4 mg IVPUSH ONETIME ONE Stop: 08/03/19 13:02 Last Admin: 08/03/19 13:12 Dose: Not Given Promethazine HCl (Phenergan) 25 mg IM ONETIME ONE Stop: 08/03/19 13:06 Last Admin: 08/03/19 13:12 Dose: 25 mg Promethazine HCl (Phenergan) Confirm Administered Dose 25 mg .ROUTE .STK-MED ONE Stop: 08/03/19 13:07 Last Admin: 08/03/19 13:13 Dose: Not Given - Exam General: Alert, Oriented, Cooperative, No Acute Distress HEENT: Pupils Equal, Pupils Reactive. No: Scleral Icterus Neck: Supple Lungs: Clear to Auscultation, Normal Respiratory Effort Cardiovascular: Regular Rate, Regular Rhythm. No: Tachycardia GI/Abdominal Exam: Normal Bowel Sounds, Soft, Non-Tender (Female) Exam: Deferred Back Exam: Normal Inspection, Full Range of Motion Extremities: Normal Inspection, Normal Range of Motion Neurological: No New Focal Deficit Psy/Mental Status: Alert, Normal Affect, Normal Mood Consult PN Assessment/Plan Procedures: Procedures AIRWAY INHALATION TREATMENT (07/04/19) ASSAY OF CK (CPK) (11/21/17) ASSAY OF FREE THYROXINE (06/28/19) ASSAY OF IRON (11/08/17) ASSAY OF LACTIC ACID (07/20/17) ASSAY OF MAGNESIUM (09/27/18) ASSAY OF NATRIURETIC PEPTIDE (10/23/18) ASSAY OF TROPONIN QUANT (10/23/18) ASSAY THYROID STIM HORMONE (06/28/19) BLOOD TRANSFUSION SERVICE (11/08/17) BLOOD TYPING SEROLOGIC ABO (11/08/17) BLOOD TYPING SEROLOGIC RH(D) (11/08/17) CHEST X-RAY 1 VIEW FRONTAL (09/24/17) CHEST X-RAY 2VW FRONTAL&LATL (07/20/17) CO/[place]BANE DIFFUSE CAPACITY (06/22/18) COMPATIBILITY TEST ANTIGLOB (11/08/17) COMPATIBILITY TEST INCUBATE (11/08/17) COMPATIBILITY TEST SPIN (11/08/17) COMPLETE CBC AUTOMATED (11/21/17) COMPLETE CBC W/AUTO DIFF WBC (07/04/19) COMPREHEN METABOLIC PANEL (07/04/19) CREATINE MB FRACTION (11/21/17) CRITICAL CARE ADDL 30 MIN (10/23/18) CRITICAL CARE FIRST HOUR (10/23/18) CT ABD & PELV W/CONTRAST (06/28/19) CT HEAD/BRAIN W/O DYE (12/05/17) CT PELVIS W/O DYE (07/02/19) DRUG TEST PRSMV DIR OPT OBS (07/20/17) ELECTROCARDIOGRAM TRACING (10/23/18) EMERGENCY DEPT VISIT (07/04/19) EMERGENCY DEPT VISIT (11/08/18) EMERGENCY DEPT VISIT (09/27/18) EMERGENCY DEPT VISIT (01/08/18) EMERGENCY DEPT VISIT (12/05/17) EMERGENCY DEPT VISIT (10/02/17) EMERGENCY DEPT VISIT (09/25/17) EMERGENCY DEPT VISIT (09/24/17) EMERGENCY DEPT VISIT (01/15/17) EMERGENCY DEPT VISIT (12/11/16) EMERGENCY DEPT VISIT (11/28/16) EVALUATION OF WHEEZING (06/22/18) FLUOROGUIDE FOR VEIN DEVICE (11/08/17) FREE ASSAY (FT-3) (06/28/19) GLYCOSYLATED HEMOGLOBIN TEST (07/20/17) HEMATOCRIT (11/08/17) HEMOGLOBIN (11/08/17) HEPATIC FUNCTION PANEL (11/17/17) HEPATITIS B SURFACE AG IA (10/23/18) HEPATITIS C AB TEST (10/23/18) HIV-1 AG W/HIV-1 & HIV-2 AB (10/23/18) HYDRATE IV INFUSION ADD-ON (07/02/19) IIV NO PRSV INCREASED AG IM (09/09/18) INFLUENZA ASSAY W/OPTIC (09/27/18) INSERT EMERGENCY AIRWAY (10/23/18) INSERT TEMP BLADDER CATH (10/23/18) INSJ PICC 5 YR+ W/O IMAGING (11/08/17) LIPID PANEL (07/20/17) METABOLIC PANEL TOTAL CA (07/04/19) OFFICE/OUTPATIENT VISIT EST (06/28/19) OFFICE/OUTPATIENT VISIT EST (06/22/18) OFFICE/OUTPATIENT VISIT EST (02/27/18) OFFICE/OUTPATIENT VISIT EST (09/12/17) PROTHROMBIN TIME (07/16/19) PT EVAL MOD COMPLEX 30 MIN (07/04/19) PULM FUNCTION TEST BY GAS (06/22/18) RBC ANTIBODY SCREEN (11/08/17) ROUTINE VENIPUNCTURE (07/04/19) THER/PROPH/DIAG INJ IV PUSH (07/02/19) THER/PROPH/DIAG INJ SC/IM (01/15/17) THERAPEUTIC ACTIVITIES (07/04/19) THROMBOPLASTIN TIME PARTIAL (11/08/17) TTE W/DOPPLER COMPLETE (06/23/18) TX/PRO/DX INJ NEW DRUG ADDON (10/23/18) TX/PRO/DX INJ 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 POSTING MACHINE 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 (01/12/18) UR ALBUMIN SEMIQUANTITATIVE (05/05/16) URINALYSIS AUTO W/SCOPE (07/04/19) URINE CULTURE/COLONY COUNT (09/27/18) US GUIDE VASCULAR ACCESS (11/08/17) X-RAY EXAM CHEST 1 VIEW (10/23/18) X-RAY EXAM CHEST 2 VIEWS (10/09/18) X-RAY EXAM HIP UNI 1 VIEW (09/25/17) X-RAY EXAM HIP UNI 2-3 VIEWS (07/02/19) X-RAY EXAM L-S SPINE 2/3 VWS (01/15/17) X-RAY EXAM OF FINGER(S) (11/28/16) X-RAY EXAM OF SHOULDER (11/28/16) X-RAY EXAM RIBS UNI 2 VIEWS (09/25/17) (1) Aortic valve replaced SNOMED Code(s): 6689622197088, 03528919, 2876480194172 Code(s): Z95.2 - PRESENCE OF PROSTHETIC HEART VALVE Priority: Medium Current Visit: Yes (2) Small bowel obstruction SNOMED Code(s): 333338174 Code(s): K56.609 - UNSP INTESTNL OBST, UNSP TO PARTIAL VERSUS COMPLETE OBST Priority: High Current Visit: Yes (3) Anemia SNOMED Code(s): 978675518 Code(s): D64.9 - ANEMIA, UNSPECIFIED Priority: Medium Current Visit: No Qualifiers: Anemia type: unspecified type Qualified Code(s): D64.9 - Anemia, unspecified (4) Atrial fibrillation with RVR SNOMED Code(s): 178686061660950 Code(s): I48.91 - UNSPECIFIED ATRIAL FIBRILLATION Priority: Medium Current Visit: No (5) Atrial flutter SNOMED Code(s): 7000085 Code(s): I48.92 - UNSPECIFIED ATRIAL FLUTTER Priority: Medium Current Visit: No (6) Elevated INR SNOMED Code(s): 410463000 Code(s): R79.1 - ABNORMAL COAGULATION PROFILE Priority: Medium Current Visit: No (7) H/O prosthetic aortic valve replacement SNOMED Code(s): 1887315369655, 6719863925214 Code(s): Z95.2 - PRESENCE OF PROSTHETIC HEART VALVE Priority: High Current Visit: No Problem List Initiated/Reviewed/Updated: Yes My Orders Last 24 Hours: SBO appears to have resolved. Agree with discharge and follow up with PCP as needed.
[2019-08-05 12:23] VITALS: BP 130/61; PULSE 75
== END 2019-08-05 13:30 | disposition home or self-care (01) ==
LOC: MW.ED 10:15 → MW.MS 16:05
PROVIDERS: ADMIT Internal Medicine; ATTEND Internal Medicine
DX: K56.609 Unspecified intestinal obstruction, unspecified as to partial versus complete obstruction (principal); N17.9 Acute kidney failure, unspecified; R26.2 Difficulty in walking, not elsewhere classified; D64.9 Anemia, unspecified; I11.0 Hypertensive heart disease with heart failure; I50.9 Heart failure, unspecified; K21.9 Gastro-esophageal reflux disease without esophagitis; M19.90 Unspecified osteoarthritis, unspecified site; F17.210 Nicotine dependence, cigarettes, uncomplicated; Z79.891 Long term (current) use of opiate analgesic; Z79.899 Other long term (current) drug therapy
CPT/HCPCS: 36415; 71045; 71045-26; 74019; 74019-26; 74176; 74176-26; 80048; 80053; 80305-QW; 81001; 83690; 83880; 84443; 84484; 85025; 85610; 87086; 93005; 96361; 96372; 96374; 96375; 96376; 99285-25; A9270-GY; G0378; G0480; J1170; J2060; J2270; J2405; J2550; J7040

== ENCOUNTER 2019-11-10 18:20 | Emergency (ER) | payer MEDICARE, OTHER ==
[2019-11-10] MEDS ORDERED: Phenazopyridine 200 MG Tab PO ONE (19:36)
[2019-11-10] MEDS ORDERED: Sodium Chloride 0.9% 1,000 ML IV ONE (19:37)
[2019-11-10] MEDS ORDERED: cefTRIAXone 1 GM in Premix Bag 1 BAG IV ONE (19:37)
[2019-11-10 20:32] LABS: BLOOD UREA NITROGEN,BUN 21 mg/dL (7.0-18.0); CARBON DIOXIDE,CO2 32.4 mmol/L (21.0-32.0); CHLORIDE,CL 101 mmol/L (98-107); GLUCOSE RANDOM 87 mg/dL (74-106); LIPASE 198 U/L (73-393); POTASSIUM,K 4.5 mmol/L (3.5-5.1); SODIUM,NA 139 mmol/L (136-145)
[2019-11-10] MEDS ORDERED: Ketorolac 30 MG/ML SDV IVPUSH ONE (20:48)
--- NOTE | 2019-11-10 20:50 | CR ---
Indication: Chest pain Technique: Chest 1 view Comparison: August 27, 2019 Findings/Impression: The patient is rotated to the left. Stable cardiomegaly. Status post median sternotomy with cardiac valve replacement. Normal pulmonary vasculature. No new focal infiltrate, effusion, or pneumothorax. Stable elevation of the right hemidiaphragm. Surgical [place] in the right axilla. No acute osseous abnormality. Dictated by Savanna Austin MD @ Nov 10 2019 8:46PM Signed by Dr. Savanna Austin @ Nov 10 2019 8:47PM
--- NOTE | 2019-11-10 22:01 | CT ---
INDICATION: Abdominal pain TECHNIQUE: CT abdomen and pelvis without contrast. COMPARISON: August 03, 2019 FINDINGS: Lower chest: Status post median sternotomy with aortic valve replacement. Cardiomegaly. Liver: Unremarkable. Spleen: Unremarkable. Pancreas: Unremarkable. Gallbladder and bile ducts: S/p cholecystectomy with stable intrahepatic and extrahepatic biliary ductal dilatation. No stone seen within the common bile duct. The duct measures up to 1.7 cm in diameter. Adrenal glands: Stable bilateral adrenal gland adenomas. Kidneys: Moderate right hydronephrosis, hydroureter, and fat stranding around the kidney and ureter secondary to a 5 mm stone at the ureterovesical junction. There is a 5 mm stone in the lower pole of the right kidney and several nonobstructive stones in the left kidney. GI tract: Status post gastric bypass procedure. Vascular structures: Significant atherosclerotic disease. Lymph nodes: Unremarkable. Miscellaneous: Small to moderate-sized fat containing umbilical hernia. Small fat containing supraumbilical hernia. No free air or significant free fluid. Pelvic Organs: There is a pessary in place. Small calcified uterine fibroid. Bones: S shaped scoliosis. Old fractures of the right superior and inferior pubic rami. Age-related degenerative changes in the spine. IMPRESSION: Moderate right hydronephrosis, hydroureter, and fat stranding around the kidney and ureter secondary to a 5 mm stone at the ureterovesical junction. There is a 5 mm stone in the lower pole of the right kidney and several nonobstructive stones in the left kidney. Stable intrahepatic and extrahepatic biliary ductal dilatation. Status post cholecystectomy. Cardiomegaly. Status post aortic valve replacement. Stable bilateral adrenal gland adenomas. Pessary in place. Old right superior and inferior pubic rami fractures. Status post gastric bypass procedure. Please note that all CT scans at this facility use dose modulation, iterative reconstruction, and/or weight-based dosing when appropriate to reduce radiation dose to as low as reasonably achievable. Dictated by Savanna Austin MD @ Nov 10 2019 9:48PM Signed by Dr. Savanna Austin @ Nov 10 2019 9:59PM
--- NOTE | 2019-11-10 22:03 | EDM.PDOC ---
ED HPI GENERAL MEDICAL PROBLEM - General Chief Complaint: Abdominal Pain Stated Complaint: PAIN IN MIDDLE BACK AND SIDE Time Seen by Provider: 11/10/19 19:31 Source of Information: Reports: Patient History Limitations: Reports: No Limitations - History of Present Illness INITIAL COMMENTS - FREE TEXT/NARRATIVE: HISTORY AND PHYSICAL: History of present illness: Patient is a 69-year-old female who presents to the ED today with concern of burning with urination since last night. Patient states she does have urinary tract infections in the past and that her symptoms today do feel similar to her past urinary tract infections. She states she has had some lower abdominal pain with the burning with urination that started today. Patient denies any other symptoms or concerns. Patient denies fever, chills, chest pain, shortness of breath, or cough. Denies headache, neck stiff ness, change in vision, syncope, or near syncope. Denies nausea, vomiting, diarrhea, constipation. Has not noted any blood in urine or stool. Patient has been eating and drinking appropriately. Review of systems: As per history of present illness and below otherwise all systems reviewed and negative. Past medical history: As per history of present illness and as reviewed below otherwise noncontributory. Surgical history: As per history of present illness and as reviewed below otherwise noncontributory. Social history: See social history for further information Family history: As per history of present illness and as reviewed below otherwise noncontributory. Physical exam: General: Patient is alert, oriented, and in no acute distress. Patient laying comfortably on exam table. HEENT: Atraumatic, normocephalic, pupils equal and reactive bilaterally, negative for conjunctival pallor or scleral icterus, mucous membranes dry, TMs normal bilaterally, throat clear, neck supple, nontender, trachea midline. No drooling or trismus noted. No meningeal signs. No hot potato voice noted. Lungs: Clear to auscultation, breath sounds equal bilaterally, chest nontender. Heart: S1S2, regular rate and rhythm without overt murmur Abdomen: Soft, nondistended, moderate RLQ tenderness without guarding and negative rebound. Negative for masses or hepatosplenomegaly. Negative for costovertebral tenderness. Pelvis: Stable nontender. Genitourinary: Deferred. Rectal: Deferred. Skin: Intact, warm, dry. No lesions or rashes noted. Extremities: Atraumatic, negative for cords or calf pain. Neurovascular unremarkable. Neuro: Awake, alert, oriented. Cranial nerves II through XII unremarkable. Cerebellum unremarkable. Motor and sensory unremarkable throughout. Exam nonfocal. Notes: Dr. Noble, urologist on-call for [facility] in [place], consulted on patient and accepting of transfer. Dr. Severino, ER physician at [place], also consulted on patient and accepting of transfer. EMS is arranged. Voices understanding and is agreeable to plan of care. Denies any further questions or concerns at this time. Diagnostics: UA, CBC, CMP, chest x-ray, abdominal pelvic CT, lipase, troponin, Pt/INR Therapeutics: NS, Pyridium, Toradol, Rocephin Impression: Ureterolithiasis Urinary tract infection Plan: 1. Transfer to [facility] to Dr. Severino (consult to Dr. Damon) via EMS. Definitive disposition and diagnosis as appropriate pending reevaluation and review of above. RLQ abdomen Pain Score (Numeric/FACES): 9 - Related Data Allergies Allergy/AdvReac Type Severity Reaction Status Date / Time No Known Allergies Allergy Verified 08/03/19 17:08 Home Meds: Home Meds Methadone 10 mg PO Q6H PRN 01/12/18 [History] DULoxetine [Cymbalta] 60 mg PO DAILY 10/10/18 [History] Digoxin [Lanoxin] 62.5 mcg PO BID 11/08/18 [History] Levothyroxine 50 mcg PO ACBREAKFAST 11/08/18 [History] Lisinopril 2.5 mg PO BID 11/08/18 [History] Multivitamin with Iron [Multivitamins with Iron] 2 tab PO DAILY 11/08/18 [ History] carvediloL [Carvedilol] 12.5 mg PO BIDMEALS 11/08/18 [History] Bumetanide 2 mg PO DAILY 07/05/19 [History] Warfarin [Coumadin] 6 mg PO DAILY 14 Days #14 tab 07/12/19 [Rx] B-Complex with Vitamin C [Super B Complex-Vitamin C] 1 each PO DAILY 08/03/19 [ History] Calcium Carb/Vitamin D3/Vit K1 [Viactiv 650 mg-12.5 Mcg Chew] 2 each PO DAILY [History] Diltiazem [Dilacor XR] 240 mg PO DAILY 08/03/19 [History] Iron 18 mg PO DAILY 08/03/19 [History] Omeprazole Magnesium [Prilosec Otc] 40 mg PO DAILY 08/03/19 [History] Past Medical History HEENT History: Reports: Impaired Vision, Other (See Below) Other HEENT History: no teeth or dentures Cardiovascular History: Reports: Afib, Heart Failure, Heart Valve Replacement, Hypertension Other Cardiovascular History: mitral valve regurgitation Respiratory History: Reports: SOB Gastrointestinal History: Reports: GERD Other Gastrointestinal History: acid reflux Genitourinary History: Reports: None REGULATORY COMPLIANCE COORDINATOR History: Reports: Other REGULATORY COMPLIANCE COORDINATOR History: pessery Musculoskeletal History: Reports: Arthritis, Back Pain, Chronic, Other (See Below) Other Musculoskeletal History: scoliosis, bulging discs, carpal tunnel, restless leg Neurological History: Reports: TIA Psychiatric History: Reports: Anxiety, Depression Endocrine/Metabolic History: Reports: None Hematologic History: Reports: Anticoagulation Therapy Immunologic History: Reports: None Oncologic (Cancer) History: Reports: Breast Other Oncologic History: right breast ca Dermatologic History: Reports: None Other Dermatologic History: dry skin - Infectious Disease History Infectious Disease History: Reports: None - Past Surgical History Head Surgeries/Procedures: Reports: None HEENT Surgical History: Reports: None Cardiovascular Surgical History: Reports: Valve Replacement Respiratory Surgical History: Reports: None GI Surgical History: Reports: Appendectomy, Bariatric Procedure, Cholecystectomy , Colonoscopy, Other (See Below) Female Surgical History: Reports: Tubal Ligation, Other (See Below) Other Female Surgeries/Procedures: right breast lumpectomy Endocrine Surgical History: Reports: None Neurological Surgical History: Reports: None Musculoskeletal Surgical History: Reports: Carpal Tunnel, Other (See Below) Oncologic Surgical History: Reports: Lumpectomy Dermatological Surgical History: Reports: None Social & Family History - Family History Family Medical History: Noncontributory - Tobacco Use Smoking Status *Q: Current Every Day Smoker Years of Tobacco use: 50 Packs/Tins Daily: 1 - Caffeine Use Caffeine Use: Reports: Coffee, Tea Caffeine Use Comment: 3-4 cups a day - Recreational Drug Use Recreational Drug Use: No - Living Situation & Occupation Living situation: Reports: , with Family Occupation: Retired ED ROS GENERAL - Review of Systems Review Of Systems: Comprehensive ROS is negative, except as noted in HPI. ED EXAM, GENERAL - Physical Exam Exam: See Below (see dictation) Course - Vital Signs Last Recorded V/S: Last Vital Signs Temp 97 F 11/10/19 18:55 Pulse 65 11/10/19 21:48 Resp 18 11/10/19 21:48 BP 148/59 H 11/10/19 21:48 Pulse Ox 94 L 11/10/19 20:47 - Orders/Labs/Meds Orders: Active Orders 24 hr Category Date Time Status EKG Documentation Completion [RC] STAT Care 11/10/19 19:37 Active CULTURE URINE [RM] Stat Lab 11/10/19 18:50 Received INR,PT,PROTHROMBIN TIME [COAG] Stat Lab 11/10/19 22:34 Ordered Labs: Laboratory Tests 11/10/19 11/10/19 11/10/19 Range/Units 18:50 19:50 19:50 WBC 11.27 H (4.0-11.0) K/uL RBC 4.67 (4.30-5.90) M/uL Hgb 13.5 (12.0-16.0) g/dL Hct 42.1 (36.0-46.0) % MCV 90.1 (80.0-98.0) fL MCH 28.9 (27.0-32.0) pg MCHC 32.1 (31.0-37.0) g/dL RDW Std Deviation 46.7 (28.0-62.0) fl RDW Coeff of Shaun 14 (11.0-15.0) % Plt Count 249 (150-400) K/uL MPV 9.70 (7.40-12.00) fL Neut % (Auto) 72.7 (48.0-80.0) % Lymph % (Auto) 17.8 (16.0-40.0) % Stark % (Auto) 8.9 (0.0-15.0) % Eos % (Auto) 0.4 (0.0-7.0) % Baso % (Auto) 0.2 (0.0-1.5) % Neut # (Auto) 8.2 H (1.4-5.7) K/uL Lymph # (Auto) 2.0 (0.6-2.4) K/uL Stark # (Auto) 1.0 H (0.0-0.8) K/uL Eos # (Auto) 0.0 (0.0-0.7) K/uL Baso # (Auto) 0.0 (0.0-0.1) K/uL Nucleated RBC % 0.0 /100WBC Nucleated RBCs # 0 K/uL Sodium 139 (136-145) mmol/L Potassium 4.5 (3.5-5.1) mmol/L Chloride 101 (98-107) mmol/L Carbon Dioxide 32.4 H (21.0-32.0) mmol/L BUN 21 H (7.0-18.0) mg/dL Creatinine 1.6 H (0.6-1.0) mg/dL Est Cr Clr Drug Dosing TNP Estimated GFR (MDRD) 32.0 ml/min Glucose 87 (74-106) mg/dL Calcium 9.2 (8.5-10.1) mg/dL Total Bilirubin 0.4 (0.2-1.0) mg/dL AST 22 (15-37) IU/L ALT 21 (14-63) IU/L Alkaline Phosphatase 116 (46-116) U/L Troponin I < 0.050 (0.000-0.056) ng/mL Total Protein 7.7 (6.4-8.2) g/dL Albumin 3.9 (3.4-5.0) g/dL Globulin 3.8 (2.6-4.0) g/dL Albumin/Globulin Ratio 1.0 (0.9-1.6) Lipase 198 (73-393) U/L Urine Color YELLOW Urine Appearance SLT CLOUDY Urine pH 5.5 (5.0-8.0) Ur Specific [place] 1.025 (1.001-1.035) Urine Protein TRACE H (NEGATIVE) mg/dL Urine Glucose (UA) NEGATIVE (NEGATIVE) mg/dL Urine Ketones NEGATIVE (NEGATIVE) mg/dL Urine Occult Blood LARGE H (NEGATIVE) Urine Nitrite NEGATIVE (NEGATIVE) Urine Bilirubin NEGATIVE (NEGATIVE) Urine Urobilinogen 1.0 (<2.0) EU/dL Ur Leukocyte Esterase SMALL H (NEGATIVE) Urine RBC 70-80 (0-2/HPF) Urine WBC 4-7 (0-5/HPF) Ur Epithelial Cells FEW (NONE-FEW) Urine Bacteria 1+ H (NEGATIVE) Meds: Medications Discontinued Medications Generic Name Dose Route Start Last Admin Trade Name Shannon PRN Reason Stop Dose Admin Sodium Chloride 1,000 mls @ 999 mls/hr 11/10/19 19:37 11/10/19 19:57 Normal Saline IV 11/10/19 20:37 999 mls/hr STAT ONE Administration Ceftriaxone Sodium/Dextrose 1 50 mls @ 100 mls/hr 11/10/19 19:37 11/10/19 19: 57 gm/ Premix IV 11/10/19 20:06 100 mls/hr ONETIME ONE Administration Ketorolac Tromethamine 30 mg 11/10/19 20:48 11/10/19 21:10 Toradol IVPUSH 11/10/19 20:49 30 mg ONETIME ONE Administration Phenazopyridine HCl 200 mg 11/10/19 19:36 11/10/19 19:57 Pyridium PO 11/10/19 19:37 200 mg ONETIME ONE Administration Departure - Departure Time of Disposition: 22:37 Disposition: DC/Tfer to [facility] 02 Clinical Impression: Ureterolithiasis Urinary tract infection Qualifiers: Urinary tract infection type: acute cystitis Hematuria presence: with hematuria Qualified Code(s): N30.01 - Acute cystitis with hematuria - Discharge Information Referrals: Vira Aguilar MD [Primary Care Provider] - Forms: ED Department Discharge Sepsis Event Note - Evaluation Sepsis Screening Result: No Definite Risk - Focused Exam Vital Signs: Vital Signs Temp Pulse Resp BP Pulse Ox 11/10/19 21:48 65 18 148/59 H 11/10/19 20:47 70 18 181/73 H 94 L 11/10/19 18:55 97 F 18 135/75 95 Date Exam was Performed: 11/10/19 Time Exam was Performed: 22:34 - My Orders Last 24 Hours: My Active Orders 11/10/19 19:37 EKG Documentation Completion [RC] STAT 11/10/19 22:34 INR,PT,PROTHROMBIN TIME [COAG] Stat - Assessment/Plan Last 24 Hours: My Active Orders 11/10/19 19:37 EKG Documentation Completion [RC] STAT 11/10/19 22:34 INR,PT,PROTHROMBIN TIME [COAG] Stat
[2019-11-10 23:54] VITALS: BP 170/65; PULSE 66
== END 2019-11-10 23:45 ==
LOC: MW.ED 18:20
DX: N13.2 Hydronephrosis with renal and ureteral calculous obstruction (principal); N30.01 Acute cystitis with hematuria; I10 Essential (primary) hypertension; F17.210 Nicotine dependence, cigarettes, uncomplicated; Z79.01 Long term (current) use of anticoagulants; Z79.899 Other long term (current) drug therapy
CPT/HCPCS: 36415; 71045; 74176; 80053; 81001; 83690; 84484; 85025; 85610; 87086; 93005; 96361; 96365; 96375; 99285; A9270; J0696; J1885; J7030; 99284

== ENCOUNTER 2020-03-26 05:13 | Emergency (ER) | payer MEDICARE, OTHER ==
[2020-03-26] MEDS ORDERED: Sodium Chloride 0.9% 10 ML Syringe FLUSH PRN (05:24)
[2020-03-26] MEDS ORDERED: Sodium Chloride 0.9% 10 ML SDV IV PRN (05:24)
[2020-03-26] MEDS ORDERED: Sodium Chloride 0.9% 2.5 ML Syringe FLUSH PRN (05:24)
--- NOTE | 2020-03-26 05:35 | EDM.PDOC ---
ED HPI GENERAL MEDICAL PROBLEM - General Chief Complaint: Cardiovascular Problem Stated Complaint: SOB Time Seen by Provider: 03/26/20 05:16 - History of Present Illness INITIAL COMMENTS - FREE TEXT/NARRATIVE: This patient is a 69-year-old female with a past medical history of atrial fibrillation, hypertension, congestive heart failure, status post mechanical aortic valve replacement (on warfarin), chronic pain (on methadone), cardiomyopathy presenting with chest discomfort and shortness of breath. Patient reports a 2-day history of substernal chest discomfort along with dyspnea. At present she states that her chest discomfort has resolved. She reports a 2-day history of gradually worsening dyspnea which is what prompted her to come to the emergency department this morning. 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 She denies any recent fever, sick contacts, or international travel. Denies wheezing, nausea, vomiting, or diarrhea. Denies new orthopnea. chest Pain Score (Numeric/FACES): 0 - Related Data Allergies Allergy/AdvReac Type Severity Reaction Status Date / Time No Known Allergies Allergy Verified 03/26/20 05:25 Home Meds: Home Meds Methadone 10 mg PO Q6H PRN 01/12/18 [History] DULoxetine [Cymbalta] 60 mg PO DAILY 10/10/18 [History] Digoxin [Lanoxin] 62.5 mcg PO DAILY 11/08/18 [History] Levothyroxine 50 mcg PO ACBREAKFAST 11/08/18 [History] Lisinopril 2.5 mg PO BID 11/08/18 [History] Multivitamin with Iron [Multivitamins with Iron] 2 tab PO DAILY 11/08/18 [ History] carvediloL [Carvedilol] 12.5 mg PO BIDMEALS 11/08/18 [History] Bumetanide 2 mg PO DAILY 07/05/19 [History] Warfarin [Coumadin] 6 mg PO DAILY 14 Days #14 tab 07/12/19 [Rx] B-Complex with Vitamin C [Super B Complex-Vitamin C] 1 each PO DAILY 08/03/19 [ History] Calcium Carb/Vitamin D3/Vit K1 [Viactiv 650 mg-12.5 Mcg Chew] 2 each PO DAILY [History] Diltiazem [Dilacor XR] 240 mg PO DAILY 08/03/19 [History] Iron 18 mg PO DAILY 08/03/19 [History] Omeprazole Magnesium [Prilosec Otc] 40 mg PO DAILY 08/03/19 [History] polyethylene glycoL 3350 [MiraLAX] 17 gm PO DAILY 03/26/20 [History] Past Medical History HEENT History: Reports: Impaired Vision, Other (See Below) Other HEENT History: no teeth or dentures Cardiovascular History: Reports: Afib, Cardiomyopathy, Heart Failure, Heart Valve Replacement, Hypertension Other Cardiovascular History: mitral valve regurgitation Respiratory History: Reports: SOB Gastrointestinal History: Reports: GERD Other Gastrointestinal History: acid reflux Genitourinary History: Reports: None HEALTH INSURANCE ADJUSTER History: Reports: Other HEALTH INSURANCE ADJUSTER History: pessery Musculoskeletal History: Reports: Arthritis, Back Pain, Chronic, Other (See Below) Other Musculoskeletal History: scoliosis, bulging discs, carpal tunnel, restless leg Neurological History: Reports: TIA Psychiatric History: Reports: Anxiety, Depression Endocrine/Metabolic History: Reports: None Hematologic History: Reports: Anticoagulation Therapy Immunologic History: Reports: None Oncologic (Cancer) History: Reports: Breast Other Oncologic History: right breast ca Dermatologic History: Reports: None Other Dermatologic History: dry skin - Infectious Disease History Infectious Disease History: Reports: None - Past Surgical History Head Surgeries/Procedures: Reports: None HEENT Surgical History: Reports: None Cardiovascular Surgical History: Reports: Valve Replacement Respiratory Surgical History: Reports: None GI Surgical History: Reports: Appendectomy, Bariatric Procedure, Cholecystectomy , Colonoscopy, Other (See Below) Female Surgical History: Reports: Tubal Ligation, Other (See Below) Other Female Surgeries/Procedures: right breast lumpectomy Endocrine Surgical History: Reports: None Neurological Surgical History: Reports: None Musculoskeletal Surgical History: Reports: Carpal Tunnel, Other (See Below) Oncologic Surgical History: Reports: Lumpectomy Dermatological Surgical History: Reports: None Social & Family History - Family History Family Medical History: Noncontributory - Caffeine Use Caffeine Use: Reports: Coffee, Tea Caffeine Use Comment: 3-4 cups a day - Living Situation & Occupation Living situation: Reports: , with Family Occupation: Retired ED ROS GENERAL - Review of Systems Review Of Systems: Comprehensive ROS is negative, except as noted in HPI. Constitutional: Denies: Fever, Chills HEENT: Reports: No Symptoms Respiratory: Reports: Shortness of Breath. Denies: Wheezing, Cough, Sputum, Hemoptysis Cardiovascular: Reports: Chest Pain. Denies: Edema, Lightheadedness, Orthopnea , Palpitations GI/Abdominal: Denies: Abdominal Pain, Diarrhea, Nausea, Vomiting : Reports: No Symptoms Musculoskeletal: Denies: Neck Pain, Back Pain Skin: Reports: No Symptoms Neurological: Reports: No Symptoms Psychiatric: Reports: No Symptoms Hematologic/Lymphatic: Reports: No Symptoms ED EXAM, GENERAL - Physical Exam Exam: See Below Free Text/Narrative:: Vital signs reviewed. Nursing notes reviewed. Constitutional: Awake, alert, non-distressed Head: Normocephalic, atraumatic Eyes: EOMI, PERRL at 3 mm bilaterally, conjunctiva normal, no discharge, no scleral icterus Ears, Nose, Throat: External ears and ears normal, moist oral mucosa Cardiovascular: 2+ radial pulse, capillary refill less than 2 seconds, no pedal edema Pulmonary: normal work of breathing, no accessory muscle use, no retractions, lungs clear to auscultation bilaterally, speaking in full sentences without difficulty on room air Abdomen/GI: Soft, nontender, nondistended, no guarding or rigidity, no masses, obese abdomen Musculoskeletal: No deformities Integumentary: Appropriate color for ethnicity, warm, dry, no pallor or jaundice , no rash Neurologic: Alert, answering questions appropriately, normal speech, no facial droop, moving all extremities well Psychiatric: Appropriate mood and affect, normal thought process EKG INTERPRETATION EKG Date: 03/26/20 Time: 05:21 Rhythm: NSR Rate (Beats/Min): 71 [place]: Normal P-Wave: Present QRS: Normal ST-T: Other (TWI in III) QT: Normal Comparison: No Change (Compared to 11/10/2019.) Course - Vital Signs Text/Narrative:: 69-year-old female presenting with chest discomfort and shortness of breath. Differential diagnoses included but were not limited to acute coronary syndrome , COPD exacerbation, asthma exacerbation, pneumonia, pleural effusion, pericardial effusion, thoracic aortic dissection, pneumothorax, viral illness, pulmonary embolism, nonspecific chest pain, congestive heart failure exacerbation, and many others. On arrival she is hypertensive, afebrile, but hemodynamically stable and well- appearing. Twelve-lead EKG was obtained, showing no acute ischemia, ectopy, or evidence of right ventricular strain. She is in sinus rhythm. IV access was established, and labs were sent off. Labs returned showing a mild normocytic anemia. INR is slightly subtherapeutic at 2.19. Electrolytes are normal. Renal function is normal. Troponin testing is negative. BNP is modestly elevated at 339. Hepatic markers are within normal limits. Two-view chest x-ray series is unremarkable per radiology read. Considered a broad range of explanations for the patient's symptoms. There is no biomarker or electrocardiographic evidence of myocardial ischemia. Lungs are clear, there is no wheezing or prolonged expiratory phase. No pulmonary infiltrate on radiographic imaging, no evidence of a pleural effusion. Pain resolved prior to arrival, which argues against thoracic aortic dissection. No infectious symptoms to suggest pneumonia or signs of a viral respiratory illness. Patient is therapeutically anticoagulated with warfarin, which should be protective against pulmonary embolism. She exhibits no hypoxia, hypotension , or resting tachycardia. Although her BNP is modestly elevated, she has no evidence of volume overload on clinical exam. Her lungs are clear and she has no pedal edema or new orthopnea, so an elevated BNP in isolation does not fit with a constellation of acute systolic heart failure with pulmonary edema. The etiology of the patient's symptoms is not entirely clear, but there is no evidence of an acute emergency medical condition. Given her negative work-up and well appearance, I feel comfortable discharging the patient home with outpatient primary care follow-up. I instructed her to continue taking her medications as prescribed and follow-up with her primary medical doctor the next 2 to 3 days. Strict ED return precautions were provided and she was discharged in good condition. All questions were answered prior to departure. Last Recorded V/S: Last Vital Signs Temp 36.1 C 03/26/20 05:25 Pulse 70 03/26/20 05:25 Resp 20 03/26/20 05:25 BP 174/80 H 03/26/20 05:25 Pulse Ox 99 03/26/20 05:25 - Orders/Labs/Meds Orders: Active Orders 24 hr Category Date Time Status Cardiac Monitoring [RC] . DIRECTED Care 03/26/20 05:24 Active Oxygen Therapy [RC] PRN Care 03/26/20 05:25 Active Pulse Oximetry [RC] CONTINUOUS Care 03/26/20 05:25 Active Sodium Chloride 0.9% [Normal Saline] Med 03/26/20 05:24 Active 10 ml IV ASDIRECTED PRN Sodium Chloride 0.9% [Saline Flush] Med 03/26/20 05:24 Active 10 ml FLUSH ASDIRECTED PRN Sodium Chloride 0.9% [Saline Flush] Med 03/26/20 05:24 Active 2.5 ml FLUSH ASDIRECTED PRN Peripheral IV Insertion Adult [OM.PC] Stat Oth 03/26/20 05:24 Ordered Medication Orders Sodium Chloride (Saline Flush) 10 ml FLUSH ASDIRECTED PRN PRN Reason: Keep Vein Open Sodium Chloride (Saline Flush) 2.5 ml FLUSH ASDIRECTED PRN PRN Reason: Keep Vein Open Sodium Chloride (Normal Saline) 10 ml IV ASDIRECTED PRN PRN Reason: IV Use Labs: Laboratory Tests 03/26/20 03/26/20 03/26/20 Range/Units 04:30 04:30 04:30 WBC 7.02 (4.0-11.0) K/uL RBC 4.25 L (4.30-5.90) M/uL Hgb 11.3 L (12.0-16.0) g/dL Hct 37.3 (36.0-46.0) % MCV 87.8 (80.0-98.0) fL MCH 26.6 L (27.0-32.0) pg MCHC 30.3 L (31.0-37.0) g/dL RDW Std Deviation 45.4 (28.0-62.0) fl RDW Coeff of Shaun 14 (11.0-15.0) % Plt Count 235 (150-400) K/uL MPV 9.70 (7.40-12.00) fL Neut % (Auto) 62.8 (48.0-80.0) % Lymph % (Auto) 26.6 (16.0-40.0) % [place] % (Auto) 7.8 (0.0-15.0) % Eos % (Auto) 2.4 (0.0-7.0) % Baso % (Auto) 0.4 (0.0-1.5) % Neut # (Auto) 4.4 (1.4-5.7) K/uL Lymph # (Auto) 1.9 (0.6-2.4) K/uL [place] # (Auto) 0.6 (0.0-0.8) K/uL Eos # (Auto) 0.2 (0.0-0.7) K/uL Baso # (Auto) 0.0 (0.0-0.1) K/uL Nucleated RBC % 0.0 /100WBC Nucleated RBCs # 0 K/uL INR 2.19 Sodium 138 (136-145) mmol/L Potassium 4.2 (3.5-5.1) mmol/L Chloride 101 (98-107) mmol/L Carbon Dioxide 29.5 (21.0-32.0) mmol/L BUN 20 H (7.0-18.0) mg/dL Creatinine 1.0 (0.6-1.0) mg/dL Est Cr Clr Drug Dosing 38.14 mL/min Estimated GFR (MDRD) 55.0 ml/min Glucose 104 (74-106) mg/dL Calcium 9.1 (8.5-10.1) mg/dL Total Bilirubin 0.3 (0.2-1.0) mg/dL AST 18 (15-37) IU/L ALT 15 (14-63) IU/L Alkaline Phosphatase 90 (46-116) U/L Troponin I < 0.050 (0.000-0.056) ng/mL B-Natriuretic Peptide (<100) PG/ML Total Protein 7.1 (6.4-8.2) g/dL Albumin 3.5 (3.4-5.0) g/dL Globulin 3.6 (2.6-4.0) g/dL Albumin/Globulin Ratio 1.0 (0.9-1.6) 05/20/20 Range/Units 04:30 WBC (4.0-11.0) K/uL RBC (4.30-5.90) M/uL Hgb (12.0-16.0) g/dL Hct (36.0-46.0) % MCV (80.0-98.0) fL MCH (27.0-32.0) pg MCHC (31.0-37.0) g/dL RDW Std Deviation (28.0-62.0) fl RDW Coeff of Shaun (11.0-15.0) % Plt Count (150-400) K/uL MPV (7.40-12.00) fL Neut % (Auto) (48.0-80.0) % Lymph % (Auto) (16.0-40.0) % [place] % (Auto) (0.0-15.0) % Eos % (Auto) (0.0-7.0) % Baso % (Auto) (0.0-1.5) % Neut # (Auto) (1.4-5.7) K/uL Lymph # (Auto) (0.6-2.4) K/uL [place] # (Auto) (0.0-0.8) K/uL Eos # (Auto) (0.0-0.7) K/uL Baso # (Auto) (0.0-0.1) K/uL Nucleated RBC % /100WBC Nucleated RBCs # K/uL INR Sodium (136-145) mmol/L Potassium (3.5-5.1) mmol/L Chloride (98-107) mmol/L Carbon Dioxide (21.0-32.0) mmol/L BUN (7.0-18.0) mg/dL Creatinine (0.6-1.0) mg/dL Est Cr Clr Drug Dosing mL/min Estimated GFR (MDRD) ml/min Glucose (74-106) mg/dL Calcium (8.5-10.1) mg/dL Total Bilirubin (0.2-1.0) mg/dL AST (15-37) IU/L ALT (14-63) IU/L Alkaline Phosphatase (46-116) U/L Troponin I (0.000-0.056) ng/mL B-Natriuretic Peptide 339 H (<100) PG/ML Total Protein (6.4-8.2) g/dL Albumin (3.4-5.0) g/dL Globulin (2.6-4.0) g/dL Albumin/Globulin Ratio (0.9-1.6) Meds: Medications Generic Name Dose Route Start Last Admin Trade Name Freq PRN Reason Stop Dose Admin Sodium Chloride 10 ml 05/20/20 05:24 Saline Flush FLUSH ASDIRECTED PRN Keep Vein Open Sodium Chloride 2.5 ml 0520/20 05:24 Saline Flush FLUSH ASDIRECTED PRN Keep Vein Open Sodium Chloride 10 ml 05/20/20 05:24 Normal Saline IV ASDIRECTED PRN IV Use Departure - Departure Time of Disposition: 06:31 Disposition: Home, Self-Care 01 Condition: Good Clinical Impression: Acute dyspnea, Atypical chest pain Instructions: Shortness of Breath, Adult, [id number], Nonspecific Chest Pain , Adult, [id number] Referrals: Vira Aguilar MD [Primary Care Provider] - 2 Days Forms: ED Department Discharge Additional Instructions: Continue taking your medications as prescribed. Please follow-up with your primary medical doctor the next 2 to 3 days. Return to the emergency department immediately if your shortness of breath worsens, if you develop new chest pain, or have any other new or concerning symptoms. The following information is given to patients seen in the emergency department who are being discharged to home. This information is to outline your options for follow-up care. We provide all patients seen in our emergency department with a follow-up referral. The need for follow-up, as well as the timing and circumstances, are variable depending upon the specifics of your emergency department visit. If you don't have a primary care physician on staff, we will provide you with a referral. We always advise you to contact your personal physician following an emergency department visit to inform them of the circumstance of the visit and for follow-up with them and/or the need for any referrals to a consulting specialist. The emergency department will also refer you to a specialist when appropriate. This referral assures that you have the opportunity for follow-up care with a specialist. All of these measure are taken in an effort to provide you with optimal care, which includes your follow-up. Under all circumstances we always encourage you to contact your private physician who remains a resource for coordinating your care. When calling for follow-up care, please make the office aware that this follow-up is from your recent emergency room visit. If for any reason you are refused follow-up, please contact the [facility] Emergency Department at and asked to speak to the emergency department charge nurse. Sepsis Event Note - Evaluation Sepsis Screening Result: No Definite Risk - Focused Exam Vital Signs: Vital Signs Temp Pulse Resp BP Pulse Ox 03/26/20 05:25 36.1 C 70 20 174/80 H 99 Date Exam was Performed: 03/26/20 Time Exam was Performed: 06:35 - My Orders Last 24 Hours: My Active Orders 03/26/20 05:24 Cardiac Monitoring [RC] . DIRECTED Sodium Chloride 0.9% [Normal Saline] 10 ml IV ASDIRECTED PRN Sodium Chloride 0.9% [Saline Flush] 10 ml FLUSH ASDIRECTED PRN Sodium Chloride 0.9% [Saline Flush] 2.5 ml FLUSH ASDIRECTED PRN Peripheral IV Insertion Adult [OM.PC] Stat 03/26/20 05:25 Oxygen Therapy [RC] PRN Pulse Oximetry [RC] CONTINUOUS - Assessment/Plan Last 24 Hours: My Active Orders 03/26/20 05:24 Cardiac Monitoring [RC] . DIRECTED Sodium Chloride 0.9% [Normal Saline] 10 ml IV ASDIRECTED PRN Sodium Chloride 0.9% [Saline Flush] 10 ml FLUSH ASDIRECTED PRN Sodium Chloride 0.9% [Saline Flush] 2.5 ml FLUSH ASDIRECTED PRN Peripheral IV Insertion Adult [OM.PC] Stat 03/26/20 05:25 Oxygen Therapy [RC] PRN Pulse Oximetry [RC] CONTINUOUS
--- NOTE | 2020-03-26 06:00 | CR ---
INDICATION: Chest pain TECHNIQUE: Frontal and lateral views of the chest COMPARISON: Single-view chest radiograph 11/10/2019 FINDINGS: There is mild left midlung atelectasis. The lungs are otherwise clear. There is no sizable pleural effusion or pneumothorax. There is stable mild enlargement of the cardiac silhouette. Prosthetic cardiac valve and sternotomy wires are noted. Contained air under the right hemidiaphragm likely corresponds to the hepatic flexure of the colon. IMPRESSION: Mild left midlung atelectasis, otherwise no acute process. Dictated by Bianca Mendiola MD @ Mar 26 2020 5:56AM Signed by Dr. Bianca Mendiola @ Mar 26 2020 5:58AM
[2020-03-26 06:05] LABS: BLOOD UREA NITROGEN,BUN 20 mg/dL (7.0-18.0); CARBON DIOXIDE,CO2 29.5 mmol/L (21.0-32.0); CHLORIDE,CL 101 mmol/L (98-107); GLUCOSE RANDOM 104 mg/dL (74-106); POTASSIUM,K 4.2 mmol/L (3.5-5.1); SODIUM,NA 138 mmol/L (136-145)
[2020-03-28 06:01] VITALS: BP 154/78; PULSE 87
== END 2020-03-26 06:45 | disposition home or self-care (01) ==
LOC: MW.ED 05:13
DX: R07.89 Other chest pain (principal); R06.02 Shortness of breath; I48.91 Unspecified atrial fibrillation; I11.0 Hypertensive heart disease with heart failure; I50.9 Heart failure, unspecified; K21.9 Gastro-esophageal reflux disease without esophagitis; M41.9 Scoliosis, unspecified; F41.9 Anxiety disorder, unspecified; F32.9 Major depressive disorder, single episode, unspecified; Z79.01 Long term (current) use of anticoagulants; Z79.899 Other long term (current) drug therapy; Z86.73 Personal history of transient ischemic attack (TIA), and cerebral infarction without residual deficits
CPT/HCPCS: 36415; 71046; 71046-26; 80053; 83880; 84484; 85025; 85610; 93005; 99284; 99285-25

== ENCOUNTER 2020-05-06 07:27 | Emergency (ER) | payer MEDICARE, OTHER ==
[2020-05-06] MEDS ORDERED: Sodium Chloride 0.9% 10 ML Syringe FLUSH PRN (07:34)
[2020-05-06] MEDS ORDERED: Sodium Chloride 0.9% 2.5 ML Syringe FLUSH PRN (07:34)
[2020-05-06] MEDS ORDERED: fentaNYL 50 MCG/ML SDV IVPUSH ONE ×3 (07:38→10:47)
[2020-05-06] MEDS ORDERED: Acetaminophen 500 MG Tab PO ONE (07:38)
--- NOTE | 2020-05-06 07:39 | EDM.PDOC ---
ED HPI GENERAL MEDICAL PROBLEM - General Chief Complaint: Trauma Stated Complaint: FALL Time Seen by Provider: 05/06/20 07:34 Source of Information: Reports: Patient, EMS History Limitations: Reports: No Limitations - History of Present Illness INITIAL COMMENTS - FREE TEXT/NARRATIVE: This patient is a 69-year-old female with past medical history of atrial fibrillation on warfarin, status post mechanical heart valve, congestive heart failure, cardiomyopathy, digoxin therapy presenting with injuries after a fall. About 30 minutes prior to arrival, the patient was walking her dog when the dog pulled her forward, causing her to fall onto her right side. She denies striking her head or losing consciousness. Paramedics arrived and noted deformity to the right distal forearm. No other complaints of injury. Right wrist pain worse with movement, better with rest. Rated as 10 out of 10. right wrist Pain Score (Numeric/FACES): 10 - Related Data Allergies Allergy/AdvReac Type Severity Reaction Status Date / Time No Known Allergies Allergy Verified 05/06/20 08:03 Home Meds: Home Meds Methadone 10 mg PO Q6H PRN 01/12/18 [History] DULoxetine [Cymbalta] 60 mg PO DAILY 10/10/18 [History] Digoxin [Lanoxin] 62.5 mcg PO DAILY 11/08/18 [History] Levothyroxine 50 mcg PO ACBREAKFAST 11/08/18 [History] Lisinopril 2.5 mg PO BID 11/08/18 [History] Multivitamin with Iron [Multivitamins with Iron] 2 tab PO DAILY 11/08/18 [History] carvediloL [Carvedilol] 12.5 mg PO BIDMEALS 11/08/18 [History] Bumetanide 2 mg PO DAILY 07/05/19 [History] Warfarin [Coumadin] 6 mg PO DAILY 14 Days #14 tab 07/12/19 [Rx] B-Complex with Vitamin C [Super B Complex-Vitamin C] 1 each PO DAILY 08/03/19 [History] Calcium Carb/Vitamin D3/Vit K1 [Viactiv 650 mg-12.5 Mcg Chew] 2 each PO DAILY 08/03/19 [History] Diltiazem [Dilacor XR] 240 mg PO DAILY 08/03/19 [History] Iron 18 mg PO DAILY 08/03/19 [History] Omeprazole Magnesium [Prilosec Otc] 40 mg PO DAILY 08/03/19 [History] polyethylene glycoL 3350 [MiraLAX] 17 gm PO DAILY 03/26/20 [History] oxyCODONE 5 - 10 mg PO Q6H PRN #15 tab 05/06/20 [Rx] Past Medical History HEENT History: Reports: Impaired Vision, Other (See Below) Other HEENT History: no teeth or dentures Cardiovascular History: Reports: Afib, Cardiomyopathy, Heart Failure, Heart Valve Replacement, Hypertension Other Cardiovascular History: mitral valve regurgitation Respiratory History: Reports: SOB Gastrointestinal History: Reports: GERD Other Gastrointestinal History: acid reflux Genitourinary History: Reports: None SHOP FOREMAN History: Reports: Other SHOP FOREMAN History: pessery Musculoskeletal History: Reports: Arthritis, Back Pain, Chronic, Other (See Below) Other Musculoskeletal History: scoliosis, bulging discs, carpal tunnel, restless leg Neurological History: Reports: TIA Psychiatric History: Reports: Anxiety, Depression Endocrine/Metabolic History: Reports: None Hematologic History: Reports: Anticoagulation Therapy Immunologic History: Reports: None Oncologic (Cancer) History: Reports: Breast Other Oncologic History: right breast ca Dermatologic History: Reports: None Other Dermatologic History: dry skin - Infectious Disease History Infectious Disease History: Reports: None Other Infectious Disease History: patient is unsure - Past Surgical History Head Surgeries/Procedures: Reports: None HEENT Surgical History: Reports: None Cardiovascular Surgical History: Reports: Valve Replacement Respiratory Surgical History: Reports: None GI Surgical History: Reports: Appendectomy, Bariatric Procedure, Cuca cystectomy, Colonoscopy, Other (See Below) Female Surgical History: Reports: Tubal Ligation, Other (See Below) Other Female Surgeries/Procedures: right breast lumpectomy Endocrine Surgical History: Reports: None Neurological Surgical History: Reports: None Musculoskeletal Surgical History: Reports: Carpal Tunnel, Other (See Below) Oncologic Surgical History: Reports: Lumpectomy Dermatological Surgical History: Reports: None Social & Family History - Family History Family Medical History: Noncontributory - Caffeine Use Caffeine Use: Reports: Coffee, Tea Caffeine Use Comment: 3-4 cups a day - Living Situation & Occupation Living situation: Reports: , with Family Occupation: Retired Review of Systems - Review of Systems Review Of Systems: See Below Constitutional: Denies: Fever Eyes: Denies: Vision Change Ears: Denies: Clear Discharge, Purulent Discharge, Serosanguinous Discharge Nose: Denies: Epistaxis, Bloody Discharge Mouth/Throat: Denies: Loose Teeth, Pain, Painful Swallowing Respiratory: Denies: Shortness of Breath Cardiovascular: Denies: Chest Pain GI/Abdominal: Denies: Abdominal Pain, Nausea, Vomiting Genitourinary: Denies: Dysuria Musculoskeletal: Reports: Back Pain (Left low-back pain), Joint Pain, Joint Swelling. Denies: Neck Pain, Shoulder Pain, Arm Pain, Hand Pain, Leg Pain, Foot Pain Skin: Denies: Rash Neurological: Denies: Headache, Syncope Psychiatric: Reports: No Symptoms ED EXAM, GENERAL - Physical Exam Exam: See Below Free Text/Narrative:: Vital signs reviewed. Nursing notes reviewed. Constitutional: Awake, alert, non-distressed. Head: Normocephalic, atraumatic. Eyes: EOMI, conjunctiva normal, no discharge, no scleral icterus. Pupils 3 mm bilaterally Ears, Nose, Throat: External ears and nose normal, moist oral mucosa. TMs clear bilaterally Neck: Nontender, full range of motion Cardiovascular: 2+ right radial pulse, capillary refill less than 2 seconds. Pulmonary: normal work of breathing, no accessory muscle use. CTA BL Abdomen/GI: Soft, nontender, nondistended, no guarding or rigidity, no masses. Stable pelvis Musculoskeletal: Deformity of the right distal forearm, no evidence of an open fracture. No tenderness over the spine, mild tenderness palpation of the left lower back. Integumentary: Appropriate color for ethnicity, warm, dry, no pallor or jaundice, no rash. Neurologic: Alert, answering questions appropriately, normal speech, no facial droop, moving all extremities well. Sensation intact to light touch in the fingers of the right hand Psychiatric: Appropriate mood and affect, normal thought process. EKG INTERPRETATION EKG Interpretation Comments: 12-Lead ECG Interpretation Acquired: 7:44 AM Rhythm: Sinus rhythm Rate: 76 bpm [place]: Normal Intervals: Normal Ectopy: Lone PVC Ischemic Changes: None apparent RV Strain: No obvious RV strain pattern. ST Segments/T-Waves: T wave inversions in lead III Interpretation: Unremarkable Course - Vital Signs Text/Narrative:: Patient hemodynamically stable, afebrile, well-appearing, looks nontoxic. Differential diagnosis includes but is not limited to: Fracture, dislocation, soft tissue injury, pelvic fracture, spinal fracture, intra-abdominal injury, coagulopathy, etc. Labs look reassuring. Mild renal insufficiency. INR is mildly elevated at 4.34 and we will have the patient hold the dose of her warfarin until tomorrow and have her INR rechecked by her primary medical clinic. Negative troponin, normal LFTs. Chest and pelvis x-rays are reassuring. Patient did not impact her head or neck so we did not perform CT imaging of the head or cervical spine. Given several doses of IV fentanyl and IV morphine. I performed a hematoma block with bupivacaine. We then consulted the anesthesiology service and a AUGER OPERATOR team performed the procedural sedation component and I performed closed reduction of the fracture. This required 2 attempts at closed reduction due to the fracture morphology (unstable/intraarticular). Refer to the procedure documentation for the closed reduction and splinting procedure. I did speak with our on-call orthopedic surgeon Dr. Khurram Rahman who feels that due to the intra-articular fracture pattern, the patient will be best served in a larger hospital system such as [facility] in [place] or [facility] in [place]. Patient was given a simple sling to place over the splint. She will be discharged home with a prescription for oxycodone as needed for pain. [id number] Tylenol for mild pain. Plan: Patient is stable to discharge home with outpatient orthopedic clinic follow-up. Strict emergency department return precautions were provided, patie nt indicated understanding. All questions were answered prior to departure. Discharged in good condition. Last Recorded V/S: Last Vital Signs Temp 35.9 C L 05/06/20 10:31 Pulse 77 05/06/20 10:31 Resp 16 05/06/20 10:31 BP 185/84 H 05/06/20 10:31 Pulse Ox 98 05/06/20 10:31 - Orders/Labs/Meds Orders: Active Orders 24 hr Category Date Time Status Cardiac Monitoring [RC] . DIRECTED Care 05/06/20 07:34 Active EKG 12 Lead [EKG Documentation Completion] [RC] STAT Care 05/06/20 08:33 Active Pulse Oximetry [RC] ASDIRECTED Care 05/06/20 07:34 Active NPO [Nothing Per Oral Diet] [DIET] Diet 05/06/20 Lunch Active Sodium Chloride 0.9% [Saline Flush] Med 05/06/20 07:34 Active 10 ml FLUSH ASDIRECTED PRN Sodium Chloride 0.9% [Saline Flush] Med 05/06/20 07:34 Active 2.5 ml FLUSH ASDIRECTED PRN Saline Lock Insert [OM.PC] Stat Oth 05/06/20 07:34 Ordered Medication Orders Sodium Chloride (Saline Flush) 2.5 ml FLUSH ASDIRECTED PRN PRN Reason: Keep Vein Open Last Admin: 05/06/20 09:34 Dose: 2.5 ml Documented by: YARED Sodium Chloride (Saline Flush) 10 ml FLUSH ASDIRECTED PRN PRN Reason: Keep Vein Open Last Admin: 05/06/20 09:34 Dose: 10 ml Documented by: YARED Labs: Laboratory Tests 05/06/20 05/06/20 05/06/20 Range/Units 07:35 07:35 07:35 WBC 7.30 (4.0-11.0) K/uL RBC 4.41 (4.30-5.90) M/uL Hgb 12.1 (12.0-16.0) g/dL Hct 38.2 (36.0-46.0) % MCV 86.6 (80.0-98.0) fL MCH 27.4 (27.0-32.0) pg MCHC 31.7 (31.0-37.0) g/dL RDW Std Deviation 47.8 (28.0-62.0) fl RDW Coeff of Shaun 15 (11.0-15.0) % Plt Count 307 (150-400) K/uL MPV 9.80 (7.40-12.00) fL Neut % (Auto) 55.6 (48.0-80.0) % Lymph % (Auto) 31.9 (16.0-40.0) % [place] % (Auto) 9.7 (0.0-15.0) % Eos % (Auto) 2.5 (0.0-7.0) % Baso % (Auto) 0.3 (0.0-1.5) % Neut # (Auto) 4.1 (1.4-5.7) K/uL Lymph # (Auto) 2.3 (0.6-2.4) K/uL [place] # (Auto) 0.7 (0.0-0.8) K/uL Eos # (Auto) 0.2 (0.0-0.7) K/uL Baso # (Auto) 0.0 (0.0-0.1) K/uL Nucleated RBC % 0.0 /100WBC Nucleated RBCs # 0 K/uL INR 4.34 Lactate 1.4 (0.20-2.00) mmol/L Sodium (136-145) mmol/L Potassium (3.5-5.1) mmol/L Chloride (98-107) mmol/L Carbon Dioxide (21.0-32.0) mmol/L BUN (7.0-18.0) mg/dL Creatinine (0.6-1.0) mg/dL Est Cr Clr Drug Dosing mL/min Estimated GFR (MDRD) ml/min Glucose (74-106) mg/dL Calcium (8.5-10.1) mg/dL Total Bilirubin (0.2-1.0) mg/dL AST (15-37) IU/L ALT (14-63) IU/L Alkaline Phosphatase (46-116) U/L Troponin I (0.000-0.056) ng/mL Total Protein (6.4-8.2) g/dL Albumin (3.4-5.0) g/dL Globulin (2.6-4.0) g/dL Albumin/Globulin Ratio (0.9-1.6) /30/20 Range/Units 07:35 WBC (4.0-11.0) K/uL RBC (4.30-5.90) M/uL Hgb (12.0-16.0) g/dL Hct (36.0-46.0) % MCV (80.0-98.0) fL MCH (27.0-32.0) pg MCHC (31.0-37.0) g/dL RDW Std Deviation (28.0-62.0) fl RDW Coeff of Shaun (11.0-15.0) % Plt Count (150-400) K/uL MPV (7.40-12.00) fL Neut % (Auto) (48.0-80.0) % Lymph % (Auto) (16.0-40.0) % [place] % (Auto) (0.0-15.0) % Eos % (Auto) (0.0-7.0) % Baso % (Auto) (0.0-1.5) % Neut # (Auto) (1.4-5.7) K/uL Lymph # (Auto) (0.6-2.4) K/uL [place] # (Auto) (0.0-0.8) K/uL Eos # (Auto) (0.0-0.7) K/uL Baso # (Auto) (0.0-0.1) K/uL Nucleated RBC % /100WBC Nucleated RBCs # K/uL INR Lactate (0.20-2.00) mmol/L Sodium 138 (136-145) mmol/L Potassium 4.2 (3.5-5.1) mmol/L Chloride 100 (98-107) mmol/L Carbon Dioxide 28.5 (21.0-32.0) mmol/L BUN 26 H (7.0-18.0) mg/dL Creatinine 1.1 H (0.6-1.0) mg/dL Est Cr Clr Drug Dosing 34.67 mL/min Estimated GFR (MDRD) 49.2 ml/min Glucose 108 H (74-106) mg/dL Calcium 8.9 (8.5-10.1) mg/dL Total Bilirubin 0.4 (0.2-1.0) mg/dL AST 22 (15-37) IU/L ALT 30 (14-63) IU/L Alkaline Phosphatase 115 (46-116) U/L Troponin I < 0.050 (0.000-0.056) ng/mL Total Protein 7.3 (6.4-8.2) g/dL Albumin 3.7 (3.4-5.0) g/dL Globulin 3.6 (2.6-4.0) g/dL Albumin/Globulin Ratio 1.0 (0.9-1.6) Meds: Medications Generic Name Dose Route Start Last Admin Trade Name Freq PRN Reason Stop Dose Admin Sodium Chloride 2.5 ml 05/06/20 07:34 05/06/20 09:34 Saline Flush FLUSH 2.5 ml ASDIRECTED PRN Administration Keep Vein Open Sodium Chloride 10 ml 05/06/20 07:34 05/06/20 09:34 Saline Flush FLUSH 10 ml ASDIRECTED PRN Administration Keep Vein Open Discontinued Medications Generic Name Dose Route Start Last Admin Trade Name Shannon PRN Reason Stop Dose Admin Acetaminophen 1,000 mg 05/06/20 07:38 05/06/20 08:08 Tylenol Extra Strength PO 05/06/20 07:39 1,000 mg ONETIME ONE Administration Bupivacaine HCl 10 ml 05/06/20 08:09 05/06/20 09:32 Sensorcaine-Mpf 0.5% INJECT 05/06/20 08:10 10 ml ONETIME ONE Administration Fentanyl 50 mcg 05/06/20 07:38 05/06/20 08:08 Fentanyl IVPUSH 05/06/20 07:39 50 mcg ONETIME ONE Administration Fentanyl 50 mcg 05/06/20 09:26 05/06/20 09:32 Fentanyl IVPUSH 05/06/20 09:27 50 mcg ONETIME ONE Administration Fentanyl 50 mcg 05/06/20 10:47 05/06/20 11:20 Fentanyl IVPUSH 05/06/20 10:48 50 mcg ONETIME ONE Administration Lidocaine HCl Confirm 05/06/20 11:22 Xylocaine-Mpf 1% Administered 05/06/20 11:23 Dose 5 ml .ROUTE .STK-MED ONE Morphine Sulfate Confirm 05/06/20 10:03 05/06/20 10:59 Morphine Administered 05/06/20 10:04 Not Given Dose 4 mg .ROUTE .STK-MED ONE Morphine Sulfate 4 mg 05/06/20 10:00 05/06/20 11:00 Morphine IVPUSH 05/06/20 10:01 4 mg ONETIME ONE Administration Propofol Confirm 05/06/20 11:22 Diprivan 20 Ml Administered 05/06/20 11:23 Dose 400 mg .ROUTE .STK-MED ONE Departure - Departure Time of Disposition: 12:42 Disposition: Home, Self-Care 01 Condition: Good Clinical Impression: Anticoagulated on warfarin, Anticoagulated on Coumadin Distal radius fracture, right Qualifiers: Encounter type: initial encounter Fracture type: closed Fracture morphology: other intra-articular Qualified Code(s): S52.571A - Other intraarticular fracture of lower end of right radius, initial encounter for closed fracture Right distal ulnar fracture Qualifiers: Encounter type: initial encounter Fracture type: closed Fracture morphology: unspecified fracture morphology Qualified Code(s): S52.601A - Unspecified fracture of lower end of right ulna, initial encounter for closed fracture Accidental fall Qualifiers: Encounter type: initial encounter Qualified Code(s): W19.XXXA - Unspecified fall, initial encounter Fall Qualifiers: Encounter type: initial encounter Qualified Code(s): W19.XXXA - Unspecified fall, initial encounter - Discharge Information *PRESCRIPTION DRUG MONITORING PROGRAM REVIEWED*: Yes *COPY OF PRESCRIPTION DRUG MONITORING REPORT IN PATIENT IVET: Yes Prescriptions: oxyCODONE 5 - 10 mg PO Q6H PRN #15 tab PRN Reason: Pain (Severe 7-10) Instructions: Bleeding Precautions When on Anticoagulant Therapy, Adult, Cast or Splint Care, Adult, [id number], Closed Reduction for Wrist or Forearm, Cast or Splint Care, Adult Referrals: Umer Srinivasan MD [Ordering Only Provider] - Forms: ED Department Discharge Additional Instructions: Thank you for choosing the [facility] emergency department in [place] for your medical needs today. It was a pleasure caring for you. You were seen in the emergency department for evaluation after a fall. X-rays showed fractures of your distal right radius and ulna. We placed this in a splint but will likely need surgery to properly allow the joint to heal. Orthopedic surgeon would like you to follow-up with an orthopedic surgery clinic in either [place] or [facility]. I recommend the [facility] in [place] for follow-up orthopedic surgery care: [address] [place] [address]. ., [place]. [address] [place] [address] call this number to make an appointment. You are prescribed a short course of oxycodone for pain. Take this only for severe pain. You can take regular [id number] Tylenol if your pain is well controlled otherwise. Your INR level is also a little too high, I would not take your warfarin today and would resume taking it tomorrow. Follow-up with your doctor that prescribes the warfarin to have your INR level rechecked in the next few days. Please return the emergency department immediately if your symptoms worsen or if you feel worse. The following information is given to patients seen in the emergency department who are being discharged. This information is to outline your options for follow-up care. We provide all patients seen in our emergency department with a follow-up referral. The need for follow-up, as well as the timing and circumstances, are variable depending upon the specifics of your emergency department visit. If you don't have a primary care physician on staff, we will provide you with a referral. We always advise you to contact your personal physician following an emergency department visit to inform them of the circumstance of the visit and for follow-up with them and/or the need for any referrals to a consulting specialist. The emergency department will also refer you to a specialist when appropriate. This referral assures that you have the opportunity for follow-up care with a specialist. All of these measure are taken in an effort to provide you with optimal care, which includes your follow-up. Under all circumstances we always encourage you to contact your private physician who remains a resource for coordinating your care. When calling for follow-up care, please make the office aware that this follow-up is from your recent emergency room visit. If for any reason you are refused follow-up, please contact the [facility] Emergency Department at and asked to speak to the emergency department charge nurse. If you do not have a primary care physician that is caring for you, you can contact these clinics below to set up an appointment to establish care: [facility] - [facility] [address] [place] [id number] [facility] [address] [place] [id number] Sepsis Event Note (ED) - Focused Exam Vital Signs: Vital Signs Temp Pulse Resp BP Pulse Ox 05/06/20 10:31 35.9 C L 77 16 185/84 H 98 05/06/20 07:30 36.1 C 79 19 149/110 H 95 - My Orders Last 24 Hours: My Active Orders 05/06/20 07:34 Cardiac Monitoring [RC] . DIRECTED Pulse Oximetry [RC] ASDIRECTED Sodium Chloride 0.9% [Saline Flush] 10 ml FLUSH ASDIRECTED PRN Sodium Chloride 0.9% [Saline Flush] 2.5 ml FLUSH ASDIRECTED PRN Saline Lock Insert [OM.PC] Stat 05/06/20 08:33 EKG 12 Lead [EKG Documentation Completion] [RC] STAT 05/06/20 Lunch NPO [Nothing Per Oral Diet] [DIET] - Assessment/Plan Last 24 Hours: My Active Orders 05/06/20 07:34 Cardiac Monitoring [RC] . DIRECTED Pulse Oximetry [RC] ASDIRECTED Sodium Chloride 0.9% [Saline Flush] 10 ml FLUSH ASDIRECTED PRN Sodium Chloride 0.9% [Saline Flush] 2.5 ml FLUSH ASDIRECTED PRN Saline Lock Insert [OM.PC] Stat 05/06/20 08:33 EKG 12 Lead [EKG Documentation Completion] [RC] STAT 05/06/20 Lunch NPO [Nothing Per Oral Diet] [DIET] ED JOINT REDUCTION/SPLINTING - Joint Reduction Right Wrist Sedation: Conscious Sedation Local Anesthesia - Bupivicaine (Marcaine): 0.5% Plain Local Anesthetic Volume: 4cc Pre-procedure NV status: Normal Post-procedure NV status: Normal Technique: Traction/Counter Traction Number of Attempts: 2 Post-Reduction Imaging: Acceptably Reduced, Fracture Seen Complications: No Progress/Comments: Closed reduction for distal radius and ulna fracture with intra-articular involvement. Required 2 attempts. Procedural sedation performed by AUGER OPERATOR team, or further documentation for information about the procedural sedation itself. Splinted in a sugar tong splint made of Ortho-Glass, with cotton padding and José Miguel bandages. Neurovascularly intact pre-and post splinting. Post reduction x- rays show persistent displacement, despite 2 attempts at reduction.
[2020-05-06 08:08] LABS: BLOOD UREA NITROGEN,BUN 26 mg/dL (7.0-18.0); CARBON DIOXIDE,CO2 28.5 mmol/L (21.0-32.0); CHLORIDE,CL 100 mmol/L (98-107); GLUCOSE RANDOM 108 mg/dL (74-106); POTASSIUM,K 4.2 mmol/L (3.5-5.1); SODIUM,NA 138 mmol/L (136-145)
[2020-05-06] MEDS ORDERED: Bupivacaine 0.5% 10 ML SDV INJECT ONE (08:09)
--- NOTE | 2020-05-06 08:18 | CR ---
Chest: Portable supine view of the chest was obtained. Comparison: Prior chest x-ray of 03/26/20. Heart is enlarged. Chronic pulmonary vascular congestion appears to be present. Prior sternotomy with prosthetic heart valve is seen. Bony structures are grossly intact. Surgical clips are seen within the right axillary region. Impression: 1. Cardiomegaly and mild chronic pulmonary vascular congestion. 2. Other findings as noted above. 3. Nothing acute is definitely appreciated. Diagnostic code #2 This report was dictated in MDT
--- NOTE | 2020-05-06 08:21 | CR ---
Pelvis: AP view of the pelvis was obtained. Comparison: Prior pelvis and right hip study of 07/02/19. Scoliosis is present within the lumbar spine. Disc space narrowing is seen within the visualized lumbar spine. Old healed fractures are seen within the superior and inferior pubic ramus of the right pelvis. Bony structures are osteoporotic. No acute fracture or other abnormality is appreciated. Impression: 1. Old healed fractures as noted above. 2. Degenerative change and osteoporosis. 3. No acute abnormality is definitely appreciated. Diagnostic code #2 This report was dictated in MDT
--- NOTE | 2020-05-06 08:22 | CR ---
Right wrist: 2 views of the right wrist were obtained. Comminuted distal radial and ulnar fractures are seen. Displacement by over a shaft width is seen. Articular extension is seen into the distal radius. Osteopenia is present. Diffuse soft tissue swelling is noted. Impression: 1. Comminuted and significantly displaced fractures within the distal radius and ulna. 2. Soft tissue swelling. Diagnostic code #5 This report was dictated in MDT
[2020-05-06] MEDS ORDERED: Morphine 4 MG/ML Syringe IVPUSH ONE (10:00)
[2020-05-06] MEDS ORDERED: Morphine 4 MG/ML Syringe ONE (10:03)
[2020-05-06] MEDS ORDERED: Propofol 200 MG/20 ML SDV ONE (11:22)
--- NOTE | 2020-05-06 12:22 | CR ---
Right wrist: 2 views of the right wrist were obtained. Comparison: Prior right wrist study performed earlier on the same date (7:37 AM). Previous fracture show significantly improved reduction. Alignment is close to anatomic. Fiberglas cast is in place. Diffuse soft tissue swelling is noted. Impression: 1. Significantly improved reduction of previous fracture. 2. Diffuse soft tissue swelling. 3. Fiberglas cast. Diagnostic code #2 This report was dictated in MDT
--- NOTE | 2020-05-06 12:47 | PCM.PREANE ---
Preanesthetic Assessment - Anesthesia/Transfusion/Family Hx Anesthesia History: Prior Anesthesia Without Reaction Family History of Anesthesia Reaction: No Transfusion History: Prior Transfusion Without Reaction Intubation History: Unknown - Review of Systems General: No Symptoms Pulmonary: No Symptoms Cardiovascular: No Symptoms Gastrointestinal: No Symptoms Neurological: No Symptoms Other: Reports: Easy Bleeding, Easy Bruising - Physical Assessment NPO Status Date: 05/06/20 NPO Status Time: 05:30 (banana) Vital Signs: Last Vital Signs Temp 35.9 C L 05/06/20 10:31 Pulse 77 05/06/20 10:31 Resp 16 05/06/20 10:31 BP 185/84 H 05/06/20 10:31 Pulse Ox 98 05/06/20 10:31 Height: 4 ft 9 in Weight: 63.503 kg ASA Class: 4E Mental Status: Alert & Oriented x3 Airway Class: Mallampati = 3 Dentition: Reports: Dentures Thyro-Mental Finger Breadths: 2 ROM/Head Extension: Full Lungs: Clear to Auscultation, Normal Respiratory Effort Cardiovascular: Regular Rate, Regular Rhythm - Lab Values: Laboratory Last Values WBC 7.30 K/uL (4.0-11.0) 05/06/20 07:35 RBC 4.41 M/uL (4.30-5.90) 05/06/20 07:35 Hgb 12.1 g/dL (12.0-16.0) 05/06/20 07:35 Hct 38.2 % (36.0-46.0) 05/06/20 07:35 MCV 86.6 fL (80.0-98.0) 05/06/20 07:35 MCH 27.4 pg (27.0-32.0) 05/06/20 07:35 MCHC 31.7 g/dL (31.0-37.0) 05/06/20 07:35 RDW Std Deviation 47.8 fl (28.0-62.0) 05/06/20 07:35 RDW Coeff of Shaun 15 % (11.0-15.0) 05/06/20 07:35 Plt Count 307 K/uL (150-400) 05/06/20 07:35 MPV 9.80 fL (7.40-12.00) 05/06/20 07:35 Neut % (Auto) 55.6 % (48.0-80.0) 05/06/20 07:35 Lymph % (Auto) 31.9 % (16.0-40.0) 05/06/20 07:35 Borden % (Auto) 9.7 % (0.0-15.0) 05/06/20 07:35 Eos % (Auto) 2.5 % (0.0-7.0) 05/06/20 07:35 Baso % (Auto) 0.3 % (0.0-1.5) 05/06/20 07:35 Neut # (Auto) 4.1 K/uL (1.4-5.7) 05/06/20 07:35 Lymph # (Auto) 2.3 K/uL (0.6-2.4) 05/06/20 07:35 Borden # (Auto) 0.7 K/uL (0.0-0.8) 05/06/20 07:35 Eos # (Auto) 0.2 K/uL (0.0-0.7) 05/06/20 07:35 Baso # (Auto) 0.0 K/uL (0.0-0.1) 05/06/20 07:35 Nucleated RBC % 0.0 /100WBC 05/06/20 07:35 Nucleated RBCs # 0 K/uL 05/06/20 07:35 INR 4.34 05/06/20 07:35 Lactate 1.4 mmol/L (0.20-2.00) 05/06/20 07:35 Sodium 138 mmol/L (136-145) 05/06/20 07:35 Potassium 4.2 mmol/L (3.5-5.1) 05/06/20 07:35 Chloride 100 mmol/L (98-107) 05/06/20 07:35 Carbon Dioxide 28.5 mmol/L (21.0-32.0) 05/06/20 07:35 BUN 26 mg/dL (7.0-18.0) H 05/06/20 07:35 Creatinine 1.1 mg/dL (0.6-1.0) H 05/06/20 07:35 Est Cr Clr Drug Dosing 34.67 mL/min 05/06/20 07:35 Estimated GFR (MDRD) 49.2 ml/min 05/06/20 07:35 Glucose 108 mg/dL (74-106) H 05/06/20 07:35 Calcium 8.9 mg/dL (8.5-10.1) 05/06/20 07:35 Total Bilirubin 0.4 mg/dL (0.2-1.0) 05/06/20 07:35 AST 22 IU/L (15-37) 05/06/20 07:35 ALT 30 IU/L (14-63) 05/06/20 07:35 Alkaline Phosphatase 115 U/L (46-116) 05/06/20 07:35 Troponin I < 0.050 ng/mL (0.000-0.056) 05/06/20 07:35 Total Protein 7.3 g/dL (6.4-8.2) 05/06/20 07:35 Albumin 3.7 g/dL (3.4-5.0) 05/06/20 07:35 Globulin 3.6 g/dL (2.6-4.0) 05/06/20 07:35 Albumin/Globulin Ratio 1.0 (0.9-1.6) 05/06/20 07:35 - Allergies Allergies/Adverse Reactions: Allergies Allergy/AdvReac Type Severity Reaction Status Date / Time No Known Allergies Allergy Verified 05/06/20 08:03 - Acknowledgements Anesthesia Type Planned: MAC Pt an Appropriate Candidate for the Planned Anesthesia: Yes Alternatives and Risks of Anesthesia Discussed w Pt/Guardian: Yes Pt/Guardian Understands and Agrees with Anesthesia Plan: Yes PreAnesthesia Questionnaire HEENT History: Reports: Impaired Vision, Other (See Below) Other HEENT History: no teeth or dentures Cardiovascular History: Reports: Afib, Cardiomyopathy, Heart Failure, Heart Valve Replacement, Hypertension, Pulmonary Hypertension Other Cardiovascular History: mitral valve regurgitation Respiratory History: Reports: SOB Gastrointestinal History: Reports: GERD Other Gastrointestinal History: acid reflux Genitourinary History: Reports: None 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: Other OB/BYN History: pessery Musculoskeletal History: Reports: Arthritis, Back Pain, Chronic, Other (See Below) Other Musculoskeletal History: scoliosis, bulging discs, carpal tunnel, restless leg Neurological History: Reports: TIA Psychiatric History: Reports: Anxiety, Depression Endocrine/Metabolic History: Reports: None Hematologic History: Reports: Anticoagulation Therapy Immunologic History: Reports: None Oncologic (Cancer) History: Reports: Breast Other Oncologic History: right breast ca Dermatologic History: Reports: None Other Dermatologic History: dry skin - Infectious Disease History Infectious Disease History: Reports: None Other Infectious Disease History: patient is unsure - Past Surgical History Head Surgeries/Procedures: Reports: None HEENT Surgical History: Reports: None Cardiovascular Surgical History: Reports: Valve Replacement Respiratory Surgical History: Reports: None GI Surgical History: Reports: Appendectomy, Bariatric Procedure, Cholecystectomy, Colonoscopy, Other (See Below) Female Surgical History: Reports: Tubal Ligation, Other (See Below) Other Female Surgeries/Procedures: right breast lumpectomy Endocrine Surgical History: Reports: None Neurological Surgical History: Reports: None Musculoskeletal Surgical History: Reports: Carpal Tunnel, Other (See Below) Oncologic Surgical History: Reports: Lumpectomy Dermatological Surgical History: Reports: None - SUBSTANCE USE Smoking Status *Q: Unknown Ever Smoked Second Hand Smoke Exposure: No Recreational Drug Use History: No - HOME MEDS Home Medications: Home Meds Methadone 10 mg PO Q6H PRN 01/12/18 [History] DULoxetine [Cymbalta] 60 mg PO DAILY 10/10/18 [History] Digoxin [Lanoxin] 62.5 mcg PO DAILY 11/08/18 [History] Levothyroxine 50 mcg PO ACBREAKFAST 11/08/18 [History] Lisinopril 2.5 mg PO BID 11/08/18 [History] Multivitamin with Iron [Multivitamins with Iron] 2 tab PO DAILY 11/08/18 [History] carvediloL [Carvedilol] 12.5 mg PO BIDMEALS 11/08/18 [History] Bumetanide 2 mg PO DAILY 07/05/19 [History] Warfarin [Coumadin] 6 mg PO DAILY 14 Days #14 tab 07/12/19 [Rx] B-Complex with Vitamin C [Super B Complex-Vitamin C] 1 each PO DAILY 08/03/19 [History] Calcium Carb/Vitamin D3/Vit K1 [Viactiv 650 mg-12.5 Mcg Chew] 2 each PO DAILY 08/03/19 [History] Diltiazem [Dilacor XR] 240 mg PO DAILY 08/03/19 [History] Iron 18 mg PO DAILY 08/03/19 [History] Omeprazole Magnesium [Prilosec Otc] 40 mg PO DAILY 08/03/19 [History] polyethylene glycoL 3350 [MiraLAX] 17 gm PO DAILY 03/26/20 [History] - CURRENT (IN HOUSE) MEDS Current Meds: Current Medications Sodium Chloride (Saline Flush) 2.5 ml FLUSH ASDIRECTED PRN PRN Reason: Keep Vein Open Last Admin: 05/06/20 09:34 Dose: 2.5 ml Documented by: Sodium Chloride (Saline Flush) 10 ml FLUSH ASDIRECTED PRN PRN Reason: Keep Vein Open Last Admin: 05/06/20 09:34 Dose: 10 ml Documented by: Discontinued Medications Acetaminophen (Tylenol Extra Strength) 1,000 mg PO ONETIME ONE Stop: 05/06/20 07:39 Last Admin: 05/06/20 08:08 Dose: 1,000 mg Documented by: Bupivacaine HCl (Sensorcaine-Mpf 0.5%) 10 ml INJECT ONETIME ONE Stop: 05/06/20 08:10 Last Admin: 05/06/20 09:32 Dose: 10 ml Documented by: Fentanyl (Fentanyl) 50 mcg IVPUSH ONETIME ONE Stop: 05/06/20 07:39 Last Admin: 05/06/20 08:08 Dose: 50 mcg Documented by: Fentanyl (Fentanyl) 50 mcg IVPUSH ONETIME ONE Stop: 05/06/20 09:27 Last Admin: 05/06/20 09:32 Dose: 50 mcg Documented by: Fentanyl (Fentanyl) 50 mcg IVPUSH ONETIME ONE Stop: 05/06/20 10:48 Last Admin: 05/06/20 11:20 Dose: 50 mcg Documented by: Lidocaine HCl (Xylocaine-Mpf 1%) Confirm Administered Dose 5 ml .ROUTE .STK-MED ONE Stop: 05/06/20 11:23 Morphine Sulfate (Morphine) Confirm Administered Dose 4 mg .ROUTE .STK-MED ONE Stop: 05/06/20 10:04 Last Admin: 05/06/20 10:59 Dose: Not Given Documented by: Morphine Sulfate (Morphine) 4 mg IVPUSH ONETIME ONE Stop: 05/06/20 10:01 Last Admin: 05/06/20 11:00 Dose: 4 mg Documented by: Propofol (Diprivan 20 Ml) Confirm Administered Dose 400 mg .ROUTE .STK-MED ONE Stop: 05/06/20 11:23
--- NOTE | 2020-05-06 12:48 | PCM.POSTAN ---
POST ANESTHESIA ASSESSMENT - MENTAL STATUS Mental Status: Alert, Oriented - VITAL SIGNS Vital Signs: Last Vital Signs Temp 35.9 C L 05/06/20 10:31 Pulse 77 05/06/20 10:31 Resp 16 05/06/20 10:31 BP 185/84 H 05/06/20 10:31 Pulse Ox 98 05/06/20 10:31 - RESPIRATORY Respiratory Status: Respiratory Rate WNL, Airway Patent, O2 Saturation Stable - CARDIOVASCULAR CV Status: Pulse Rate WNL, Blood Pressure Stable - GASTROINTESTINAL GI Status: No Symptoms - POST OP HYDRATION Hydration Status: Adequate & Stable
--- NOTE | 2020-05-06 12:53 | CR ---
Right wrist: 2 views of the right wrist were obtained. Comparison: Previous wrist study performed earlier on the same day. Significantly improved alignment of previous displaced fractures are noted. Greatest displacement of a radial fragment on current study is 6 mm. Fiberglas cast in place. Impression: 1. Significantly improved alignment of previous fractures. 2. Fiberglas cast in place. Diagnostic code #2 This report was dictated in MDT
--- NOTE | 2020-05-06 13:13 | PCM48HPAN ---
Post Anesthesia Note - EVALUATION WITHIN 48HRS OF ANESTHETIC Vital Signs in Normal Range: Yes Patient Participated in Evaluation: Yes Respiratory Function Stable: Yes Airway Patent: Yes Cardiovascular Function Stable: Yes Hydration Status Stable: Yes Pain Control Satisfactory: Yes Nausea and Vomiting Control Satisfactory: Yes Mental Status Recovered: Yes Vital Signs: Last Vital Signs Temp 35.9 C L 05/06/20 10:31 Pulse 77 05/06/20 10:31 Resp 16 05/06/20 10:31 BP 185/84 H 05/06/20 10:31 Pulse Ox 98 05/06/20 10:31
[2020-05-06 13:42] VITALS: BP 161/71; PULSE 100
[2020-05-06] MEDS ORDERED: Sodium Chloride 0.9% 500 ML IV STA (15:46)
== END 2020-05-06 13:03 | disposition home or self-care (01) ==
LOC: MW.ED 07:27
DX: S52.571A Other intraarticular fracture of lower end of right radius, initial encounter for closed fracture (principal); S52.601A Unspecified fracture of lower end of right ulna, initial encounter for closed fracture; I48.91 Unspecified atrial fibrillation; I11.0 Hypertensive heart disease with heart failure; I50.9 Heart failure, unspecified; K21.9 Gastro-esophageal reflux disease without esophagitis; M41.9 Scoliosis, unspecified; F41.9 Anxiety disorder, unspecified; F32.9 Major depressive disorder, single episode, unspecified; Z79.01 Long term (current) use of anticoagulants; Z79.899 Other long term (current) drug therapy; W01.0XXA Fall on same level from slipping, tripping and stumbling without subsequent striking against object, initial encounter
CPT/HCPCS: 01820; 25565; 36415; 71045; 71045-26; 72170; 72170-26; 73100-26-RT; 73100-RT; 80053; 83605; 84484; 85025; 85610; 93005; 99152; 99153; 99284; 99284-25; A9270-GY; J2001; J2270; J2704; J3010; J3490; J7040

== ENCOUNTER 2020-05-19 07:18 | Emergency (ER) | payer MEDICARE, OTHER ==
[2020-05-19] MEDS ORDERED: Sodium Chloride 0.9% 10 ML Syringe FLUSH PRN ×2 (07:25→07:38)
[2020-05-19] MEDS ORDERED: Sodium Chloride 0.9% 2.5 ML Syringe FLUSH PRN ×2 (07:25→07:38)
--- NOTE | 2020-05-19 07:43 | EDM.PDOC ---
ED HPI GENERAL MEDICAL PROBLEM - General Chief Complaint: Fever Stated Complaint: FEVER, SORE THROAT, WEAK Time Seen by Provider: 05/19/20 07:19 - History of Present Illness INITIAL COMMENTS - FREE TEXT/NARRATIVE: 69-year-old female with multiple medical problems including paroxysmal A. fib, CHF who fell 6 days ago sustaining a right upper extremity fracture presenting now with really diffuse pain and fever. Patient reports that most of the pain including the abdomen and the fever started last night. Though she reports she is gradually felt worse and worse over the last few days. She denies vomiting but reports nausea denies hematuria or dysuria but reports flank pain also reports continued pain in the right wrist. She denies sore throat she denies cough but does endorse shortness of breath. No clear exacerbating or alleviating factors abdominal pain is diffuse no radiation or other associated symptoms. Chest Pain Score (Numeric/FACES): 8 - Related Data Allergies Allergy/AdvReac Type Severity Reaction Status Date / Time No Known Allergies Allergy Verified 05/19/20 07:23 Home Meds: Home Meds Methadone 10 mg PO TID PRN 01/12/18 [History] DULoxetine [Cymbalta] 60 mg PO DAILY 10/10/18 [History] Digoxin [Lanoxin] 62.5 mcg PO DAILY 11/08/18 [History] Levothyroxine 75 mcg PO ACBREAKFAST 11/08/18 [History] Lisinopril 2.5 mg PO BID 11/08/18 [History] carvediloL [Carvedilol] 12.5 mg PO BIDMEALS 11/08/18 [History] Bumetanide 2 mg PO DAILY 07/05/19 [History] Warfarin [Coumadin] 6 mg PO DAILY 14 Days #14 tab 07/12/19 [Rx] Diltiazem [Dilacor XR] 240 mg PO DAILY 08/03/19 [History] Iron 27 mg PO DAILY 08/03/19 [History] Omeprazole Magnesium [Prilosec Otc] 40 mg PO DAILY 08/03/19 [History] polyethylene glycoL 3350 [MiraLAX] 17 gm PO DAILY 03/26/20 [History] Albuterol Sulfate [Proventil Hfa] 1 - 2 puff INH ASDIRECTED PRN 05/19/20 [History] Albuterol [Proventil Neb Soln] 3 ml INH ASDIRECTED PRN 05/19/20 [History] Calcium Carb, Citrate/Vit D3 [Citracal + D ER] 1 each PO DAILY 05/19/20 [History] Non-Formulary Medication [NF Drug] 1 each 05/19/20 [History] diphenhydrAMINE [Benadryl] 50 mg PO BEDTIME 05/19/20 [History] oxyCODONE 5 mg PO Q6HR 05/19/20 [History] Past Medical History HEENT History: Reports: Impaired Vision, Other (See Below) Other HEENT History: no teeth or dentures Cardiovascular History: Reports: Afib, Cardiomyopathy, Heart Failure, Heart Valve Replacement, Hypertension Other Cardiovascular History: mitral valve regurgitation Respiratory History: Reports: SOB Gastrointestinal History: Reports: GERD Other Gastrointestinal History: acid reflux Genitourinary History: Reports: None ECHOCARDIOGRAPHY TECH History: Reports: Other ECHOCARDIOGRAPHY TECH History: pessery Musculoskeletal History: Reports: Arthritis, Back Pain, Chronic, Other (See Below) Other Musculoskeletal History: scoliosis, bulging discs, carpal tunnel, restless leg Neurological History: Reports: TIA Psychiatric History: Reports: Anxiety, Depression Endocrine/Metabolic History: Reports: None Hematologic History: Reports: Anticoagulation Therapy Immunologic History: Reports: None Oncologic (Cancer) History: Reports: Breast Other Oncologic History: right breast ca Dermatologic History: Reports: None Other Dermatologic History: dry skin - Infectious Disease History Infectious Disease History: Reports: None Other Infectious Disease History: patient is unsure - Past Surgical History Head Surgeries/Procedures: Reports: None HEENT Surgical History: Reports: None Cardiovascular Surgical History: Reports: Valve Replacement Respiratory Surgical History: Reports: None GI Surgical History: Reports: Appendectomy, Bariatric Procedure, Cholecystectomy, Colonoscopy, Other (See Below) Female Surgical History: Reports: Tubal Ligation, Other (See Below) Other Female Surgeries/Procedures: right breast lumpectomy Endocrine Surgical History: Reports: None Neurological Surgical History: Reports: None Musculoskeletal Surgical History: Reports: Carpal Tunnel, Other (See Below) Oncologic Surgical History: Reports: Lumpectomy Dermatological Surgical History: Reports: None Social & Family History - Family History Family Medical History: Noncontributory - Tobacco Use Smoking Status *Q: Unknown Ever Smoked - Caffeine Use Caffeine Use: Reports: Coffee, Tea Caffeine Use Comment: 3-4 cups a day - Living Situation & Occupation Living situation: Reports: , with Family Occupation: Retired ED ROS GENERAL - Review of Systems Review Of Systems: See Below Free Text/Narrative/Comment: General: Per HPI. Skin: No rash. Eyes: No vision problems. ENT: No sore throat. Neck: No neck stiffness. Respiratory: Per HPI Cardiac: Per HPI Gastrointestinal: Per HPI Urinary: No dysuria. Musculoskeletal: No myalgias/arthralgias. Neurologic: No headache. ED EXAM, GENERAL - Physical Exam Exam: See Below Free Text/Narrative:: General Appearance: No acute distress, appears uncomfortable Skin: No rash HEENT: Normocephalic/atraumatic, sclera anicteric, mucous membranes moist Neck: Normal range of motion Chest and Lungs: Bilateral breath sounds, clear to auscultation, no focal chest wall tenderness or deformity Cardiovascular: Mildly tachycardic rate and regular rhythm, no murmur Abdomen: Soft, diffusely tender but no guarding no rebound Back: Normal Musculoskeletal: No edema or tenderness, right upper extremity remains in a splint Neurologic: Awake, alert, no obvious deficits, moving all extremities Psychiatric: Appropriate, cooperative EKG INTERPRETATION EKG Interpretation Comments: Obtained at 0726 demonstrates sinus tachycardia with a ventricular rate of [address] depressions or elevations no findings of acute ischemia QTC 455 Course - Vital Signs Last Recorded V/S: Last Vital Signs Temp 100.8 F H 05/19/20 11:18 Pulse 97 05/19/20 11:18 Resp 17 05/19/20 11:18 BP 100/51 L 05/19/20 11:18 Pulse Ox 96 05/19/20 11:18 - Orders/Labs/Meds Orders: Active Orders 24 hr Category Date Time Status EKG Documentation Completion [RC] AM Care 05/19/20 07:25 Active CULTURE BLOOD [BC] Stat Lab 05/19/20 10:50 Received CULTURE BLOOD [BC] Stat Lab 05/19/20 11:01 Results Sodium Chloride 0.9% [Saline Flush] Med 05/19/20 07:25 Active 10 ml FLUSH ASDIRECTED PRN Sodium Chloride 0.9% [Saline Flush] Med 05/19/20 07:38 Active 10 ml FLUSH ASDIRECTED PRN Sodium Chloride 0.9% [Saline Flush] Med 05/19/20 07:25 Active 2.5 ml FLUSH ASDIRECTED PRN Sodium Chloride 0.9% [Saline Flush] Med 05/19/20 07:38 Active 2.5 ml FLUSH ASDIRECTED PRN Blood Culture x2 Reflex Set [OM.PC] Stat Ot 05/19/20 10:42 Ordered Saline Lock Insert [OM.PC] Stat Ot 05/19/20 07:25 Ordered Saline Lock Insert [OM.PC] Stat Ot 05/19/20 07:38 Ordered Medication Orders Sodium Chloride (Saline Flush) 10 ml FLUSH ASDIRECTED PRN PRN Reason: Keep Vein Open Last Admin: 05/19/20 08:28 Dose: 10 ml Documented by: [id number] Sodium Chloride (Saline Flush) 2.5 ml FLUSH ASDIRECTED PRN PRN Reason: Keep Vein Open Last Admin: 05/19/20 08:28 Dose: 2.5 ml Documented by: [email or web address] Sodium Chloride (Saline Flush) 10 ml FLUSH ASDIRECTED PRN PRN Reason: Keep Vein Open Last Admin: 05/19/20 08:28 Dose: 10 ml Documented by: [id number] Sodium Chloride (Saline Flush) 2.5 ml FLUSH ASDIRECTED PRN PRN Reason: Keep Vein Open Last Admin: 05/19/20 08:28 Dose: 2.5 ml Documented by: [email or web address] Labs: Laboratory Tests 05/19/20 05/19/20 05/19/20 Range/Units 08:00 08:00 08:00 WBC 14.56 H (4.0-11.0) K/uL RBC 3.88 L (4.30-5.90) M/uL Hgb 10.6 L (12.0-16.0) g/dL Hct 34.7 L (36.0-46.0) % MCV 89.4 (80.0-98.0) fL MCH 27.3 (27.0-32.0) pg MCHC 30.5 L (31.0-37.0) g/dL RDW Std Deviation 50.8 (28.0-62.0) fl RDW Coeff of Shaun 16 H (11.0-15.0) % Plt Count 319 (150-400) K/uL MPV 9.30 (7.40-12.00) fL Neut % (Auto) 92.9 H (48.0-80.0) % Lymph % (Auto) 3.4 L (16.0-40.0) % [place] % (Auto) 3.6 (0.0-15.0) % Eos % (Auto) 0.0 (0.0-7.0) % Baso % (Auto) 0.1 (0.0-1.5) % Neut # (Auto) 13.5 H (1.4-5.7) K/uL Lymph # (Auto) 0.5 L (0.6-2.4) K/uL [place] # (Auto) 0.5 (0.0-0.8) K/uL Eos # (Auto) 0.0 (0.0-0.7) K/uL Baso # (Auto) 0.0 (0.0-0.1) K/uL Nucleated RBC % 0.0 /100WBC Nucleated RBCs # 0 K/uL INR Lactate 1.7 (0.20-2.00) mmol/L Sodium 138 (136-145) mmol/L Potassium 3.8 (3.5-5.1) mmol/L Chloride 99 (98-107) mmol/L Carbon Dioxide 30.3 (21.0-32.0) mmol/L BUN 28 H (7.0-18.0) mg/dL Creatinine 1.1 H (0.6-1.0) mg/dL Est Cr Clr Drug Dosing 43.43 mL/min Estimated GFR (MDRD) 49.2 ml/min Glucose 147 H (74-106) mg/dL Calcium 9.2 (8.5-10.1) mg/dL Total Bilirubin 2.5 H (0.2-1.0) mg/dL AST 475 H (15-37) IU/L ALT 259 H (14-63) IU/L Alkaline Phosphatase 296 H (46-116) U/L Troponin I < 0.050 (0.000-0.056) ng/mL Total Protein 7.1 (6.4-8.2) g/dL Albumin 3.2 L (3.4-5.0) g/dL Globulin 3.9 (2.6-4.0) g/dL Albumin/Globulin Ratio 0.8 L (0.9-1.6) Lipase (73-393) U/L Urine Color Urine Appearance Urine pH (5.0-8.0) Ur Specific [place] (1.001-1.035) Urine Protein (NEGATIVE) mg/dL Urine Glucose (UA) (NEGATIVE) mg/dL Urine Ketones (NEGATIVE) mg/dL Urine Occult Blood (NEGATIVE) Urine Nitrite (NEGATIVE) Urine Bilirubin (NEGATIVE) Urine Ictotest Urine Urobilinogen (<2.0) EU/dL Ur Leukocyte Esterase (NEGATIVE) Urine RBC (0-2/HPF) Urine WBC (0-5/HPF) Ur Epithelial Cells (NONE-FEW) Urine Bacteria (NEGATIVE) Digoxin (0.9-2.0) ng/mL COVID-19 (RL) (NEGATIVE) 05/19/20 05/19/20 05/19/20 Range/Units 08:00 08:00 08:00 WBC (4.0-11.0) K/uL RBC (4.30-5.90) M/uL Hgb (12.0-16.0) g/dL Hct (36.0-46.0) % MCV (80.0-98.0) fL MCH (27.0-32.0) pg MCHC (31.0-37.0) g/dL RDW Std Deviation (28.0-62.0) fl RDW Coeff of Shaun (11.0-15.0) % Plt Count (150-400) K/uL MPV (7.40-12.00) fL Neut % (Auto) (48.0-80.0) % Lymph % (Auto) (16.0-40.0) % [place] % (Auto) (0.0-15.0) % Eos % (Auto) (0.0-7.0) % Baso % (Auto) (0.0-1.5) % Neut # (Auto) (1.4-5.7) K/uL Lymph # (Auto) (0.6-2.4) K/uL [place] # (Auto) (0.0-0.8) K/uL Eos # (Auto) (0.0-0.7) K/uL Baso # (Auto) (0.0-0.1) K/uL Nucleated RBC % /100WBC Nucleated RBCs # K/uL INR 2.36 Lactate (0.20-2.00) mmol/L Sodium (136-145) mmol/L Potassium (3.5-5.1) mmol/L Chloride (98-107) mmol/L Carbon Dioxide (21.0-32.0) mmol/L BUN (7.0-18.0) mg/dL Creatinine (0.6-1.0) mg/dL Est Cr Clr Drug Dosing mL/min Estimated GFR (MDRD) ml/min Glucose (74-106) mg/dL Calcium (8.5-10.1) mg/dL Total Bilirubin (0.2-1.0) mg/dL AST (15-37) IU/L ALT (14-63) IU/L Alkaline Phosphatase (46-116) U/L Troponin I (0.000-0.056) ng/mL Total Protein (6.4-8.2) g/dL Albumin (3.4-5.0) g/dL Globulin (2.6-4.0) g/dL Albumin/Globulin Ratio (0.9-1.6) Lipase 168 (73-393) U/L Urine Color Urine Appearance Urine pH (5.0-8.0) Ur Specific [place] (1.001-1.035) Urine Protein (NEGATIVE) mg/dL Urine Glucose (UA) (NEGATIVE) mg/dL Urine Ketones (NEGATIVE) mg/dL Urine Occult Blood (NEGATIVE) Urine Nitrite (NEGATIVE) Urine Bilirubin (NEGATIVE) Urine Ictotest Urine Urobilinogen (<2.0) EU/dL Ur Leukocyte Esterase (NEGATIVE) Urine RBC (0-2/HPF) Urine WBC (0-5/HPF) Ur Epithelial Cells (NONE-FEW) Urine Bacteria (NEGATIVE) Digoxin 0.6 L (0.9-2.0) ng/mL COVID-19 (RL) (NEGATIVE) 05/19/20 05/19/20 Range/Units 08:19 08:25 WBC (4.0-11.0) K/uL RBC (4.30-5.90) M/uL Hgb (12.0-16.0) g/dL Hct (36.0-46.0) % MCV (80.0-98.0) fL MCH (27.0-32.0) pg MCHC (31.0-37.0) g/dL RDW Std Deviation (28.0-62.0) fl RDW Coeff of Shaun (11.0-15.0) % Plt Count (150-400) K/uL MPV (7.40-12.00) fL Neut % (Auto) (48.0-80.0) % Lymph % (Auto) (16.0-40.0) % [place] % (Auto) (0.0-15.0) % Eos % (Auto) (0.0-7.0) % Baso % (Auto) (0.0-1.5) % Neut # (Auto) (1.4-5.7) K/uL Lymph # (Auto) (0.6-2.4) K/uL [place] # (Auto) (0.0-0.8) K/uL Eos # (Auto) (0.0-0.7) K/uL Baso # (Auto) (0.0-0.1) K/uL Nucleated RBC % /100WBC Nucleated RBCs # K/uL INR Lactate (0.20-2.00) mmol/L Sodium (136-145) mmol/L Potassium (3.5-5.1) mmol/L Chloride (98-107) mmol/L Carbon Dioxide (21.0-32.0) mmol/L BUN (7.0-18.0) mg/dL Creatinine (0.6-1.0) mg/dL Est Cr Clr Drug Dosing mL/min Estimated GFR (MDRD) ml/min Glucose (74-106) mg/dL Calcium (8.5-10.1) mg/dL Total Bilirubin (0.2-1.0) mg/dL AST (15-37) IU/L ALT (14-63) IU/L Alkaline Phosphatase (46-116) U/L Troponin I (0.000-0.056) ng/mL Total Protein (6.4-8.2) g/dL Albumin (3.4-5.0) g/dL Globulin (2.6-4.0) g/dL Albumin/Globulin Ratio (0.9-1.6) Lipase (73-393) U/L Urine Color YELLOW Urine Appearance HAZY Urine pH 7.0 (5.0-8.0) Ur Specific [place] 1.020 (1.001-1.035) Urine Protein TRACE H (NEGATIVE) mg/dL Urine Glucose (UA) NEGATIVE (NEGATIVE) mg/dL Urine Ketones NEGATIVE (NEGATIVE) mg/dL Urine Occult Blood LARGE H (NEGATIVE) Urine Nitrite NEGATIVE (NEGATIVE) Urine Bilirubin SMALL H (NEGATIVE) Urine Ictotest NEGATIVE Urine Urobilinogen >=8.0 H (<2.0) EU/dL Ur Leukocyte Esterase SMALL H (NEGATIVE) Urine RBC 20-30 (0-2/HPF) Urine WBC 1-5 (0-5/HPF) Ur Epithelial Cells RARE (NONE-FEW) Urine Bacteria 1+ H (NEGATIVE) Digoxin (0.9-2.0) ng/mL COVID-19 (RL) NEGATIVE (NEGATIVE) Meds: Medications Generic Name Dose Route Start Last Admin Trade Name Shannon PRN Reason Stop Dose Admin Sodium Chloride 10 ml 05/19/20 07:25 05/19/20 08:28 Saline Flush FLUSH 10 ml ASDIRECTED PRN Administration Keep Vein Open Sodium Chloride 2.5 ml 05/19/20 07:25 05/19/20 08:28 Saline Flush FLUSH 2.5 ml ASDIRECTED PRN Administration Keep Vein Open Sodium Chloride 10 ml 05/19/20 07:38 05/19/20 08:28 Saline Flush FLUSH 10 ml ASDIRECTED PRN Administration Keep Vein Open Sodium Chloride 2.5 ml 05/19/20 07:38 05/19/20 08:28 Saline Flush FLUSH 2.5 ml ASDIRECTED PRN Administration Keep Vein Open Discontinued Medications Generic Name Dose Route Start Last Admin Trade Name Shannon PRN Reason Stop Dose Admin Acetaminophen 1,000 mg 05/19/20 08:09 05/19/20 08:28 Tylenol Extra Strength PO 05/19/20 08:10 1,000 mg ONETIME ONE Administration Piperacillin Sod/Tazobactam 50 mls @ 100 mls/hr 05/19/20 10:43 05/19/20 11:17 Sod 3.375 gm/ Sodium Chloride IV 05/19/20 11:12 100 mls/hr ONETIME ONE Administration Iopamidol 100 ml 05/19/20 10:26 05/19/20 10:26 Isovue Multipack-370 (76%) IVPUSH 05/19/20 10:27 100 ml ONETIME STA Administration Departure - Departure Time of Disposition: 11:43 Disposition: DC/Tfer to Acute Hospital 02 Condition: Good Clinical Impression: Acute cholangitis - Discharge Information Referrals: Leonel Villegas MD [Primary Care Provider] - Forms: ED Department Discharge Sepsis Event Note (ED) - Evaluation Sepsis Screening Result: Possible Sepsis Risk - Focused Exam Vital Signs: Vital Signs Temp Temp Pulse Resp BP Pulse Ox 05/19/20 11:18 100.8 F H 97 17 100/51 L 96 05/19/20 10:49 99 18 110/50 L 96 05/19/20 10:09 96 102/49 L 96 05/19/20 09:51 101.3 F H 96 18 94/52 L 97 05/19/20 09:09 98 17 98/45 L 94 L 05/19/20 08:58 101.3 F H 05/19/20 08:32 106 H 16 111/51 L 94 L 05/19/20 08:28 103.2 F H 05/19/20 08:22 108 H 18 119/48 L 95 05/19/20 07:23 103.2 F H 109 H 18 124/57 L 100 - My Orders Last 24 Hours: My Active Orders 05/19/20 07:25 EKG Documentation Completion [RC] AM Sodium Chloride 0.9% [Saline Flush] 10 ml FLUSH ASDIRECTED PRN Sodium Chloride 0.9% [Saline Flush] 2.5 ml FLUSH ASDIRECTED PRN Saline Lock Insert [OM.PC] Stat 05/19/20 07:38 Sodium Chloride 0.9% [Saline Flush] 10 ml FLUSH ASDIRECTED PRN Sodium Chloride 0.9% [Saline Flush] 2.5 ml FLUSH ASDIRECTED PRN Saline Lock Insert [OM.PC] Stat 05/19/20 10:42 Blood Culture x2 Reflex Set [OM.PC] Stat 05/19/20 10:50 CULTURE BLOOD [BC] Stat 05/19/20 11:01 CULTURE BLOOD [BC] Stat - Assessment/Plan Last 24 Hours: My Active Orders 05/19/20 07:25 EKG Documentation Completion [RC] AM Sodium Chloride 0.9% [Saline Flush] 10 ml FLUSH ASDIRECTED PRN Sodium Chloride 0.9% [Saline Flush] 2.5 ml FLUSH ASDIRECTED PRN Saline Lock Insert [OM.PC] Stat 05/19/20 07:38 Sodium Chloride 0.9% [Saline Flush] 10 ml FLUSH ASDIRECTED PRN Sodium Chloride 0.9% [Saline Flush] 2.5 ml FLUSH ASDIRECTED PRN Saline Lock Insert [OM.PC] Stat 05/19/20 10:42 Blood Culture x2 Reflex Set [OM.PC] Stat 05/19/20 10:50 CULTURE BLOOD [BC] Stat 05/19/20 11:01 CULTURE BLOOD [BC] Stat Assessment:: 69-year-old female with multiple medical problems presenting with fever and diffuse pain including chest pain and abdominal pain. HEENT exam is unremarkable. Pneumonia to be considered and chest x-ray pending given diffuse abdominal tenderness her age and multiple medical problems acute intra-abdominal pathology needs to be considered as well including biliary pathology diverticulitis etc. given the CBC CMP CT abdomen pelvis added. Pyelonephritis a consideration as well. COVID needs to be considered she has no clear exposures but I think the potential for admission is high we will screen for COVID. If patient's lactate is elevated will need IV fluid but will need to be judicious given her history of CHF. 0817: LA is normal so will hold on any empiric IVF given her CHF hx. 0851: Patient with mild leukocytosis. Patient does have new transaminitis on her blood work here. Urinalysis unremarkable lipase added CT scan pending. 1030: CT scan demonstrates stable intrahepatic biliary ductal dilatation patient is status post cholecystectomy. There is no finding of new obstruction and patient's cholecystectomy was many years ago. Patient is not particularly tender in the right upper quadrant. However, she has a fever and she has a new transaminitis. She did not have any other source of acute infective process at this point. The concern would be fore cholangitis. She does not have any viral upper respiratory symptoms. 1120: Patient discussed in full with the hospitalist. She requested consultation with general surgery. Patient discussed in full with Dr. Dukes. Given that she is status post cholecystectomy there is nothing to do acutely from a surgical standpoint. She would need GI assessment and potentially MRCP or ERCP. Patient discussed with hospitalist. Though we could in theory do an MRCP at this facility patient has an artificial heart valve and so likely is not able to get an MRCP here. Given this we will discuss with the patient she may need transfer to [facility] as, per Dr. Dukes, GI physicians at not often cannot do ERCPs. 1145: Pt discussed with DR. Arboleda (GI) who will consult and was accepted by Dr. Esparza for admission to [facility] for further care and and evaluation. Patient is felt stable for transfer by ground.
[2020-05-19] MEDS ORDERED: Acetaminophen 500 MG Tab PO ONE (08:09)
--- NOTE | 2020-05-19 08:11 | CR ---
Chest: Portable view of the chest was obtained. Comparison: Prior chest x-ray of 05/06/20. Areas of atelectasis are seen within the left midlung. Mild chronic increased lung markings are seen. Lungs otherwise are clear. Heart is mildly enlarged. Previous sternotomy is noted with prosthetic heart valve. Surgical clips are seen within the right axillary region. Impression: 1. Left midlung atelectasis. 2. Other findings within the chest are stable from prior chest x-ray. Diagnostic code #2 This report was dictated in MDT
[2020-05-19 08:46] LABS: BLOOD UREA NITROGEN,BUN 28 mg/dL (7.0-18.0); CARBON DIOXIDE,CO2 30.3 mmol/L (21.0-32.0); CHLORIDE,CL 99 mmol/L (98-107); GLUCOSE RANDOM 147 mg/dL (74-106); POTASSIUM,K 3.8 mmol/L (3.5-5.1); SODIUM,NA 138 mmol/L (136-145)
--- NOTE | 2020-05-19 10:19 | CT ---
CT abdomen and pelvis Technique: Multiple axial sections were obtained from above the dome of the diaphragm inferiorly through the pubic symphysis. Intravenous contrast was utilized. No oral contrast has been given. Comparison: Prior CT abdomen and pelvis exam of 08/03/19. Findings: Intrahepatic biliary duct dilatation is seen which appears similar to previous study. Previous cholecystectomy is noted. Common bile duct is also dilated which appears similar to prior study. No additional abnormality is appreciated within the liver. Spleen appears within normal limits. Visualized lung bases show nothing acute. Kidney show symmetric contrast enhancement. Nonobstructing calculi are seen within both kidneys. Several cortical cysts are seen within the right kidney with largest cortical cyst measuring 1.7 cm. Right adrenal nodule is noted measuring 3.3 cm. this appears stable from prior exam. Smaller adrenal nodule on the left side which also remain stable measuring about 1.7 cm. Pancreas shows no discrete abnormality. Prior stomach surgery is noted. Aorta shows atherosclerotic calcification without aneurysm. No retroperitoneal adenopathy or mesenteric abnormalities are seen. No pelvic mass or adenopathy is noted. Pessary in place. Fat-containing umbilical hernia is noted. Scoliosis and degenerative change is noted within the spine. Old inferior and superior right pubic rami fractures are present. Appendix not visualized. No bowel dilatation is appreciated. Impression: 1. Findings as noted above which are similar to previous CT abdomen and pelvis exam. 2. Nothing acute is appreciated. Diagnostic code #2 This report was dictated in MDT
[2020-05-19] MEDS ORDERED: Iopamidol 755 MG/ML 500 ML Multipack Bottle IVPUSH STA (10:26)
[2020-05-19] MEDS ORDERED: Piperacillin/Tazobactam 3.375 GM in Sodium Chloride 0.9% 50 ML IV ONE (10:43)
[2020-05-19] MEDS ORDERED: Ondansetron 4 MG/2 ML SDV IVPUSH ONE (11:54)
[2020-05-19] MEDS ORDERED: Morphine 4 MG/ML Syringe IVPUSH ONE (11:54)
[2020-05-19] MEDS ORDERED: Sodium Chloride 0.9% 500 ML IV ONE (12:03)
[2020-05-19 12:26] VITALS: BP 94/40; PULSE 92
== END 2020-05-19 13:13 ==
LOC: MW.ED 07:18
DX: K83.09 Other cholangitis (principal); I11.0 Hypertensive heart disease with heart failure; I50.9 Heart failure, unspecified; I48.91 Unspecified atrial fibrillation; F41.9 Anxiety disorder, unspecified; F32.9 Major depressive disorder, single episode, unspecified; K21.9 Gastro-esophageal reflux disease without esophagitis; Z86.73 Personal history of transient ischemic attack (TIA), and cerebral infarction without residual deficits; Z20.828 Contact with and (suspected) exposure to other viral communicable diseases; Z79.899 Other long term (current) drug therapy
CPT/HCPCS: 36415; 71045; 74177; 80053; 80162; 81001; 83605; 83690; 84484; 85025; 85610; 87040; 93005; 96365; 96375; 99285; A9270; J2270; J2405; J2543; J7040; J7050; Q9967; U0002; 93010

== ENCOUNTER 2020-12-03 07:46 | Emergency (ER) | payer MEDICARE, OTHER ==
[2020-12-03] MEDS ORDERED: Sodium Chloride 0.9% 2.5 ML Syringe FLUSH PRN (07:49)
[2020-12-03] MEDS ORDERED: Sodium Chloride 0.9% 10 ML Syringe FLUSH PRN (07:49)
--- NOTE | 2020-12-03 07:54 | EDM.PDOC ---
ED HPI GENERAL MEDICAL PROBLEM - General Chief Complaint: Trauma Stated Complaint: FALL Time Seen by Provider: 12/03/20 07:48 Source of Information: Reports: Patient History Limitations: Reports: No Limitations - History of Present Illness INITIAL COMMENTS - FREE TEXT/NARRATIVE: 70-year-old female past medical history chronic pain, frequent falls, atrial fibrillation on Coumadin, CHF, A. fib, aortic valve replacement, GI bleed, CAD, SBO presents for mechanical fall. Patient states that she was walking up her steps when she fell forward hitting the front of her head on a baseboard. She denies loss of consciousness and she has been able to ambulate after the fall. She denies any pain in his neck or extremities. She notes a contusion to left frontal head without bleeding. headache Pain Score (Numeric/FACES): 5 - Related Data Allergies Allergy/AdvReac Type Severity Reaction Status Date / Time No Known Allergies Allergy Verified 12/03/20 07:55 Home Meds: Home Meds Methadone 10 mg PO TID PRN 01/12/18 [History] DULoxetine [Cymbalta] 60 mg PO DAILY 10/10/18 [History] Digoxin [Lanoxin] 62.5 mcg PO DAILY 11/08/18 [History] Levothyroxine 75 mcg PO ACBREAKFAST 11/08/18 [History] Lisinopril 2.5 mg PO BID 11/08/18 [History] carvediloL [Carvedilol] 12.5 mg PO BIDMEALS 11/08/18 [History] Bumetanide 2 mg PO DAILY 07/05/19 [History] Warfarin [Coumadin] 6 mg PO DAILY 14 Days #14 tab 07/12/19 [Rx] Diltiazem [Dilacor XR] 240 mg PO DAILY 08/03/19 [History] Iron 27 mg PO DAILY 08/03/19 [History] Omeprazole Magnesium [Prilosec Otc] 40 mg PO DAILY 08/03/19 [History] polyethylene glycoL 3350 [MiraLAX] 17 gm PO DAILY 03/26/20 [History] Albuterol Sulfate [Proventil Hfa] 1 - 2 puff INH ASDIRECTED PRN 05/19/20 [History] Albuterol [Proventil Neb Soln] 3 ml INH ASDIRECTED PRN 05/19/20 [History] Calcium Carb, Citrate/Vit D3 [Citracal + D ER] 1 each PO DAILY 05/19/20 [H istory] Non-Formulary Medication [NF Drug] 1 each 05/19/20 [History] diphenhydrAMINE [Benadryl] 50 mg PO BEDTIME 05/19/20 [History] oxyCODONE 5 mg PO Q6HR 05/19/20 [History] Past Medical History HEENT History: Reports: Impaired Vision, Other (See Below) Other HEENT History: no teeth or dentures Cardiovascular History: Reports: Afib, Cardiomyopathy, Heart Failure, Heart Valve Replacement, Hypertension Other Cardiovascular History: mitral valve regurgitation Respiratory History: Reports: SOB Gastrointestinal History: Reports: GERD Other Gastrointestinal History: acid reflux Genitourinary History: Reports: None 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: Other DECONTAMINATION WORKER History: pessery Musculoskeletal History: Reports: Arthritis, Back Pain, Chronic, Other (See Below) Other Musculoskeletal History: scoliosis, bulging discs, carpal tunnel, restless leg Neurological History: Reports: TIA Psychiatric History: Reports: Anxiety, Depression Endocrine/Metabolic History: Reports: None Hematologic History: Reports: Anticoagulation Therapy Immunologic History: Reports: None Oncologic (Cancer) History: Reports: Breast Other Oncologic History: right breast ca Dermatologic History: Reports: None Other Dermatologic History: dry skin - Infectious Disease History Infectious Disease History: Reports: None Other Infectious Disease History: patient is unsure - Past Surgical History Head Surgeries/Procedures: Reports: None HEENT Surgical History: Reports: None Cardiovascular Surgical History: Reports: Valve Replacement Respiratory Surgical History: Reports: None GI Surgical History: Reports: Appendectomy, Bariatric Procedure, Cholecystectomy, Colonoscopy, Other (See Below) Female Surgical History: Reports: Tubal Ligation, Other (See Below) Other Female Surgeries/Procedures: right breast lumpectomy Endocrine Surgical History: Reports: None Neurological Surgical History: Reports: None Musculoskeletal Surgical History: Reports: Carpal Tunnel, Other (See Below) Oncologic Surgical History: Reports: Lumpectomy Dermatological Surgical History: Reports: None Social & Family History - Family History Family Medical History: No Pertinent Family History - Caffeine Use Caffeine Use: Reports: Coffee, Tea Caffeine Use Comment: 3-4 cups a day - Living Situation & Occupation Living situation: Reports: , with Family Occupation: Retired Review of Systems - Review of Systems Review Of Systems: Comprehensive ROS is negative, except as noted in HPI. ED EXAM, GENERAL - Physical Exam Exam: See Below Exam Limited By: No Limitations General Appearance: Alert, WD/WN, No Apparent Distress Eye Exam: Bilateral Eye: EOMI, PERRL Ears: Normal External Exam Throat/Mouth: Normal Voice, No Airway Compromise Head: Normocephalic, Other (left frontal scalp hematoma without bleeding or laceration ) Neck: Normal Inspection, Supple, Non-Tender. No: Tender Midline Respiratory/Chest: No Respiratory Distress, Lungs Clear, Normal Breath Sounds, No Accessory Muscle Use, Chest Non-Tender Cardiovascular: Normal Peripheral Pulses, Regular Rate, Rhythm, No Edema GI/Abdominal: Soft, Non-Tender Back Exam: Normal Inspection Extremities: Normal Inspection Neurological: Alert, Oriented Course - Vital Signs Last Recorded V/S: Last Vital Signs Temp 96.7 F L 12/03/20 07:52 Pulse 67 12/03/20 07:52 Resp 18 12/03/20 07:52 BP 163/78 H 12/03/20 07:52 Pulse Ox 95 12/03/20 07:52 - Orders/Labs/Meds Orders: Active Orders 24 hr Category Date Time Status Blood Glucose Check, Bedside [RC] ONETIME Care 12/03/20 07:49 Active Sodium Chloride 0.9% [Saline Flush] Med 12/03/20 07:49 Active 10 ml FLUSH ASDIRECTED PRN Sodium Chloride 0.9% [Saline Flush] Med 12/03/20 07:49 Active 2.5 ml FLUSH ASDIRECTED PRN Saline Lock Insert [OM.PC] Stat Oth 12/03/20 07:49 Ordered Medication Orders Sodium Chloride (Saline Flush) 2.5 ml FLUSH ASDIRECTED PRN PRN Reason: Keep Vein Open Sodium Chloride (Saline Flush) 10 ml FLUSH ASDIRECTED PRN PRN Reason: Keep Vein Open Labs: Laboratory Tests 12/03/20 12/03/20 12/03/20 Range/Units 07:59 07:59 07:59 WBC 8.21 (4.0-11.0) K/uL RBC 4.29 L (4.30-5.90) M/uL Hgb 12.4 (12.0-16.0) g/dL Hct 40.0 (36.0-46.0) % MCV 93.2 (80.0-98.0) fL MCH 28.9 (27.0-32.0) pg MCHC 31.0 (31.0-37.0) g/dL RDW Std Deviation 47.0 (28.0-62.0) fl RDW Coeff of Shaun 14 (11.0-15.0) % Plt Count 311 (150-400) K/uL MPV 9.90 (7.40-12.00) fL Neut % (Auto) 49.4 (48.0-80.0) % Lymph % (Auto) 37.8 (16.0-40.0) % Riley % (Auto) 8.4 (0.0-15.0) % Eos % (Auto) 4.0 (0.0-7.0) % Baso % (Auto) 0.4 (0.0-1.5) % Neut # (Auto) 4.1 (1.4-5.7) K/uL Lymph # (Auto) 3.1 H (0.6-2.4) K/uL Riley # (Auto) 0.7 (0.0-0.8) K/uL Eos # (Auto) 0.3 (0.0-0.7) K/uL Baso # (Auto) 0.0 (0.0-0.1) K/uL Nucleated RBC % 0.0 /100WBC Nucleated RBCs # 0 K/uL INR 2.71 APTT 39.4 H (18.6-31.3) SEC Sodium 139 (136-145) mmol/L Potassium 4.1 (3.5-5.1) mmol/L Chloride 101 (98-107) mmol/L Carbon Dioxide 32.3 H (21.0-32.0) mmol/L BUN 27 H (7.0-18.0) mg/dL Creatinine 1.2 H (0.6-1.0) mg/dL Est Cr Clr Drug Dosing 31.33 mL/min Estimated GFR (MDRD) 44.4 ml/min Glucose 96 (74-106) mg/dL POC Glucose (60-110) mg/dL Calcium 9.9 (8.5-10.1) mg/dL Total Bilirubin 0.3 (0.2-1.0) mg/dL AST 13 L (15-37) IU/L ALT 26 (14-63) IU/L Alkaline Phosphatase 122 H (46-116) U/L Troponin I < 0.050 (0.000-0.056) ng/mL Total Protein 8.0 (6.4-8.2) g/dL Albumin 3.9 (3.4-5.0) g/dL Globulin 4.1 H (2.6-4.0) g/dL Albumin/Globulin Ratio 1.0 (0.9-1.6) Urine Color Urine Appearance Urine pH (5.0-8.0) Ur Specific [place] (1.001-1.035) Urine Protein (NEGATIVE) mg/dL Urine Glucose (UA) (NEGATIVE) mg/dL Urine Ketones (NEGATIVE) mg/dL Urine Occult Blood (NEGATIVE) Urine Nitrite (NEGATIVE) Urine Bilirubin (NEGATIVE) Urine Urobilinogen (<2.0) EU/dL Ur Leukocyte Esterase (NEGATIVE) Urine RBC (0-2/HPF) Urine WBC (0-5/HPF) Ur Squamous Epith Cells Urine Bacteria (NEGATIVE) 12/03/20 12/03/20 Range/Units 08:01 08:13 WBC (4.0-11.0) K/uL RBC (4.30-5.90) M/uL Hgb (12.0-16.0) g/dL Hct (36.0-46.0) % MCV (80.0-98.0) fL MCH (27.0-32.0) pg MCHC (31.0-37.0) g/dL RDW Std Deviation (28.0-62.0) fl RDW Coeff of Shaun (11.0-15.0) % Plt Count (150-400) K/uL MPV (7.40-12.00) fL Neut % (Auto) (48.0-80.0) % Lymph % (Auto) (16.0-40.0) % Riley % (Auto) (0.0-15.0) % Eos % (Auto) (0.0-7.0) % Baso % (Auto) (0.0-1.5) % Neut # (Auto) (1.4-5.7) K/uL Lymph # (Auto) (0.6-2.4) K/uL Riley # (Auto) (0.0-0.8) K/uL Eos # (Auto) (0.0-0.7) K/uL Baso # (Auto) (0.0-0.1) K/uL Nucleated RBC % /100WBC Nucleated RBCs # K/uL INR APTT (18.6-31.3) SEC Sodium (136-145) mmol/L Potassium (3.5-5.1) mmol/L Chloride (98-107) mmol/L Carbon Dioxide (21.0-32.0) mmol/L BUN (7.0-18.0) mg/dL Creatinine (0.6-1.0) mg/dL Est Cr Clr Drug Dosing mL/min Estimated GFR (MDRD) ml/min Glucose (74-106) mg/dL POC Glucose 92 (60-110) mg/dL Calcium (8.5-10.1) mg/dL Total Bilirubin (0.2-1.0) mg/dL AST (15-37) IU/L ALT (14-63) IU/L Alkaline Phosphatase (46-116) U/L Troponin I (0.000-0.056) ng/mL Total Protein (6.4-8.2) g/dL Albumin (3.4-5.0) g/dL Globulin (2.6-4.0) g/dL Albumin/Globulin Ratio (0.9-1.6) Urine Color YELLOW Urine Appearance CLEAR Urine pH 5.5 (5.0-8.0) Ur Specific [place] 1.010 (1.001-1.035) Urine Protein NEGATIVE (NEGATIVE) mg/dL Urine Glucose (UA) NEGATIVE (NEGATIVE) mg/dL Urine Ketones NEGATIVE (NEGATIVE) mg/dL Urine Occult Blood TRACE-INTACT H (NEGATIVE) Urine Nitrite NEGATIVE (NEGATIVE) Urine Bilirubin NEGATIVE (NEGATIVE) Urine Urobilinogen 0.2 (<2.0) EU/dL Ur Leukocyte Esterase TRACE H (NEGATIVE) Urine RBC 2-4 (0-2/HPF) Urine WBC 1-3 (0-5/HPF) Ur Squamous Epith Cells FEW Urine Bacteria FEW (NEGATIVE) Meds: Medications Generic Name Dose Route Start Last Admin Trade Name Freq PRN Reason Stop Dose Admin Sodium Chloride 2.5 ml 12/03/20 07:49 Saline Flush FLUSH ASDIRECTED PRN Keep Vein Open Sodium Chloride 10 ml 12/03/20 07:49 Saline Flush FLUSH ASDIRECTED PRN Keep Vein Open - Re-Assessments/Exams Free Text/Narrative Re-Assessment/Exam: 12/03/20 07:59 We will get basic labs including CBC, INR. Will get head CT, cervical spine CT. Will get chest and pelvis x-ray in setting of elderly patient with fall. Low suspicion fracture. 12/03/20 09:11 Labs and imaging all unremarkable. Will discharge patient home with return precautions. Departure - Departure Time of Disposition: 09:11 Disposition: Home, Self-Care 01 Condition: Good Clinical Impression: CHI (closed head injury) Qualifiers: Encounter type: initial encounter Qualified Code(s): S09.90XA - Unspecified injury of head, initial encounter - Discharge Information Instructions: Head Injury, Adult, Fall Prevention in the Home, Adult, [id number] Referrals: Vira Aguilar MD [Primary Care Provider] - Forms: ED Department Discharge Additional Instructions: The following information is given to patients seen in the emergency department who are being discharged to home. This information is to outline your options for follow-up care. We provide all patients seen in our emergency department with a follow-up referral. The need for follow-up, as well as the timing and circumstances, are variable depending upon the specifics of your emergency department visit. If you don't have a primary care physician on staff, we will provide you with a referral. We always advise you to contact your personal physician following an emergency department visit to inform them of the circumstance of the visit and for follow-up with them and/or the need for any referrals to a consulting specialist. The emergency department will also refer you to a specialist when appropriate. This referral assures that you have the opportunity for follow-up care with a specialist. All of these measure are taken in an effort to provide you with optimal care, which includes your follow-up. Under all circumstances we always encourage you to contact your private physician who remains a resource for coordinating your care. When calling for follow-up care, please make the office aware that this follow-up is from your recent emergency room visit. If for any reason you are refused follow-up, please contact the [facility] Emergency Department at and asked to speak to the emergency department charge nurse. Please follow up with your primary care physician. If you do not have a primary care physician, see below: [facility] [address], [place] [id number] [facility] [address] [place] [address] [facility] [address] [place] [address] Sepsis Event Note (ED) - Focused Exam Vital Signs: Vital Signs Temp Pulse Resp BP Pulse Ox 12/03/20 07:52 96.7 F L 67 18 163/78 H 95 - My Orders Last 24 Hours: My Active Orders 12/03/20 07:49 Blood Glucose Check, Bedside [RC] ONETIME Sodium Chloride 0.9% [Saline Flush] 10 ml FLUSH ASDIRECTED PRN Sodium Chloride 0.9% [Saline Flush] 2.5 ml FLUSH ASDIRECTED PRN Saline Lock Insert [OM.PC] Stat - Assessment/Plan Last 24 Hours: My Active Orders 12/03/20 07:49 Blood Glucose Check, Bedside [RC] ONETIME Sodium Chloride 0.9% [Saline Flush] 10 ml FLUSH ASDIRECTED PRN Sodium Chloride 0.9% [Saline Flush] 2.5 ml FLUSH ASDIRECTED PRN Saline Lock Insert [OM.PC] Stat
[2020-12-03 08:00] VITALS: PULSE 67
--- NOTE | 2020-12-03 08:45 | CT ---
INDICATION: Patient fell TECHNIQUE: A CT volumetric acquisition was performed of the cervical spine without IV contrast. FINDINGS: The cervical vertebra appear anatomically aligned on the sagittal and coronal reformations. There is no evidence of a fracture. There is degenerative hypertrophic spurring about the odontoid process and anterior arch of C1. There is degenerative disc space narrowing and C6-7 with anterior hypertrophic spurring about the vertebral margins. The facet joints demonstrate hypertrophic changes within the mid and lower cervical spine, left greater than right. The posterior elements and spinous processes appear intact. There is no evidence of a paraspinal or epidural hematoma. IMPRESSION: No evidence of a fracture or subluxation within the cervical spine. Degenerative disc disease evident at C6-7 and facet arthropathy within the mid and lower cervical spine. Please note that all CT scans at this facility use dose modulation, iterative reconstruction, and/or weight-based dosing when appropriate to reduce radiation dose to as low as reasonably achievable. Dictated by Chalo Lutz MD @ Dec 03 2020 8:38AM Signed by Dr. Chalo Lutz @ Dec 03 2020 8:43AM
--- NOTE | 2020-12-03 08:47 | CR ---
INDICATION: Trauma. Patient fell COMPARISON: Purple chest dated 05/19/2020 TECHNIQUE: Portable chest performed at 7:57 a.m. FINDINGS: The lungs are clear. There is no evidence of pneumothorax. Patient is status post prior midline sternotomy and aortic valve replacement. The heart, mediastinum and pulmonary vessels are of normal size. There is no evidence of pleural fluid. IMPRESSION: No acute process identified. Dictated by Chalo Lutz MD @ Dec 03 2020 8:43AM Signed by Dr. Chalo Lutz @ Dec 03 2020 8:45AM
--- NOTE | 2020-12-03 08:49 | CR ---
INDICATION: Patient fell TECHNIQUE: AP pelvis. COMPARISON: Pelvis dated 05/06/2020 FINDINGS: The hips are anatomically aligned. The sacroiliac joints appear normal. There is no evidence of an acute fracture or intrinsic bone lesion within the pelvis. There are old healed fracture deformities within the right pubic rami. The soft tissues appear normal. IMPRESSION: No acute fracture identified. Dictated by Chalo Lutz MD @ Dec 03 2020 8:45AM Signed by Dr. Chalo Lutz @ Dec 03 2020 8:47AM
--- NOTE | 2020-12-03 08:53 | CT ---
INDICATION: Patient fell COMPARISON: none TECHNIQUE: A CT volumetric acquisition was performed of the brain without IV contrast. FINDINGS: There is a scalp hematoma within the posterior left frontal region. There is no evidence of a subdural or epidural hematoma. There is no evidence of subarachnoid hemorrhage or intraparenchymal bleeding. The CT images reveal a normal appearance of the cerebral ventricles and basal cisterns. There is no evidence of localized tissue infarction or mass effect. There is normal charles white matter differentiation. The mastoid air cells and middle ear cavities are clear. The calvarium appears intact. There is normal aeration of the visualized paranasal sinuses. IMPRESSION: Scalp hematoma. No evidence of intracranial hemorrhage, infarct or mass effect. Please note that all CT scans at this facility use dose modulation, iterative reconstruction, and/or weight-based dosing when appropriate to reduce radiation dose to as low as reasonably achievable. Dictated by Chalo Lutz MD @ Dec 03 2020 8:43AM Signed by Dr. Chalo Lutz @ Dec 03 2020 8:51AM
[2020-12-03 09:02] LABS: BLOOD UREA NITROGEN,BUN 27 mg/dL (7.0-18.0); CARBON DIOXIDE,CO2 32.3 mmol/L (21.0-32.0); CHLORIDE,CL 101 mmol/L (98-107); GLUCOSE RANDOM 96 mg/dL (74-106); POTASSIUM,K 4.1 mmol/L (3.5-5.1); SODIUM,NA 139 mmol/L (136-145)
[2020-12-03 09:30] VITALS: BP 120/43
== END 2020-12-03 09:20 | disposition home or self-care (01) ==
LOC: MW.ED 07:46
DX: S09.90XA Unspecified injury of head, initial encounter (principal); I48.91 Unspecified atrial fibrillation; I11.0 Hypertensive heart disease with heart failure; I50.9 Heart failure, unspecified; I25.10 Atherosclerotic heart disease of native coronary artery without angina pectoris; K21.9 Gastro-esophageal reflux disease without esophagitis; Z79.01 Long term (current) use of anticoagulants; Z79.899 Other long term (current) drug therapy; Z86.73 Personal history of transient ischemic attack (TIA), and cerebral infarction without residual deficits; W01.10XA Fall on same level from slipping, tripping and stumbling with subsequent striking against unspecified object, initial encounter
CPT/HCPCS: 36415; 70450; 70450-26; 71045; 71045-26; 72125; 72125-26; 72170; 72170-26; 80053; 81001; 82962; 84484; 85025; 85610; 85730; 99284-25; 99285

== ENCOUNTER 2021-05-18 02:16 | Emergency (ER) | payer MEDICARE, OTHER ==
[2021-05-18] MEDS ORDERED: Sodium Chloride 0.9% 2.5 ML Syringe FLUSH PRN (02:20)
[2021-05-18] MEDS ORDERED: Sodium Chloride 0.9% 10 ML Syringe FLUSH PRN (02:20)
--- NOTE | 2021-05-18 02:28 | EDM.PDOC ---
ED HPI GENERAL MEDICAL PROBLEM - General Chief Complaint: Respiratory Problem Stated Complaint: BREATHING DIFFICULTY Time Seen by Provider: 05/18/21 02:17 Source of Information: Reports: Patient, EMS History Limitations: Reports: Respiratory Distress - History of Present Illness INITIAL COMMENTS - FREE TEXT/NARRATIVE: 70-year-old female with history of CHF with last known LVEF of 55-60% per 04/08/2020, COPD on 2L nasal cannula at night, Afib on Coumadin, Prosthetic aortic valve replacement presents with chest pain and shortness of breath. Chest pain has been ongoing for 3 days with her dyspnea has gradually worsened. When EMS was called, they found her satting 70% on room air and respiratory distress. She was placed on CPAP which improved her saturation to 97%. She denies fever, cough but admits to chills. ROS: A 10-point review of systems, other than pertinent positives and negatives as stated per HPI, is otherwise negative Past medical history: No additional pertinent history Past Surgical history: Gastric bypass, prosthetic aortic valve, small bowel obstruction Social history: No additional pertinent history Family history: No additional pertinent history PHYSICAL EXAM General: AOx4, GCS = 15, ill-appearing, severe distress HEENT: moist mucous membrane Skin: Clammy Neck: supple, no meningismus, no Kernig or Brudzinski Cardiac: S1S2 tachycardia with a regular rhythm, HR = 140s Respiratory: Tachypnea with respiratory rate = 50s, moderate respiratory distress, bibasilar rales, no wheezing Abdomen: Soft, nontender, no rebound or guarding, nondistended, no pulsatile mass. Back: nontender Musculoskeletal: NVI distally, no deformity Neuro: No focal deficit. chest pain Pain Score (Numeric/FACES): 10 - Related Data Allergies Allergy/AdvReac Type Severity Reaction Status Date / Time No Known Allergies Allergy Verified 05/18/21 02:23 Home Meds: Home Meds Methadone 10 mg PO TID PRN 01/12/18 [History] DULoxetine [Cymbalta] 60 mg PO DAILY 10/10/18 [History] Digoxin [Lanoxin] 62.5 mcg PO DAILY 11/08/18 [History] Levothyroxine 75 mcg PO ACBREAKFAST 11/08/18 [History] Lisinopril 2.5 mg PO BID 11/08/18 [History] carvediloL [Carvedilol] 12.5 mg PO BIDMEALS 11/08/18 [History] Bumetanide 2 mg PO DAILY 07/05/19 [History] Warfarin [Coumadin] 6 mg PO DAILY 14 Days #14 tab 07/12/19 [Rx] Diltiazem [Dilacor XR] 240 mg PO DAILY 08/03/19 [History] Iron 27 mg PO DAILY 08/03/19 [History] Omeprazole Magnesium [Prilosec Otc] 40 mg PO DAILY 08/03/19 [History] polyethylene glycoL 3350 [MiraLAX] 17 gm PO DAILY 03/26/20 [History] Albuterol Sulfate [Proventil Hfa] 1 - 2 puff INH ASDIRECTED PRN 05/19/20 [History] Albuterol [Proventil Neb Soln] 3 ml INH ASDIRECTED PRN 05/19/20 [History] Calcium Carb, Citrate/Vit D3 [Citracal + D ER] 1 each PO DAILY 05/19/20 [History] Non-Formulary Medication [NF Drug] 1 each 05/19/20 [History] diphenhydrAMINE [Benadryl] 50 mg PO BEDTIME 05/19/20 [History] oxyCODONE 5 mg PO Q6HR 05/19/20 [History] Past Medical History HEENT History: Reports: Impaired Vision, Other (See Below) Other HEENT History: no teeth or dentures Cardiovascular History: Reports: Afib, Cardiomyopathy, Heart Failure, Heart Valve Replacement, Hypertension Other Cardiovascular History: mitral valve regurgitation Respiratory History: Reports: SOB Gastrointestinal History: Reports: GERD Other Gastrointestinal History: acid reflux Genitourinary History: Reports: None LOCKER ROOM MANAGER History: Reports: Other LOCKER ROOM MANAGER History: pessery Musculoskeletal History: Reports: Arthritis, Back Pain, Chronic, Other (See Below) Other Musculoskeletal History: scoliosis, bulging discs, carpal tunnel, restless leg Neurological History: Reports: TIA Psychiatric History: Reports: Anxiety, Depression Endocrine/Metabolic History: Reports: None Hematologic History: Reports: Anticoagulation Therapy Immunologic History: Reports: None Oncologic (Cancer) History: Reports: Breast Other Oncologic History: right breast ca Dermatologic History: Reports: None Other Dermatologic History: dry skin - Infectious Disease History Infectious Disease History: Reports: None Other Infectious Disease History: patient is unsure - Past Surgical History Head Surgeries/Procedures: Reports: None HEENT Surgical History: Reports: None Cardiovascular Surgical History: Reports: Valve Replacement Other Cardiovascular Surgeries/Procedures: mechanical aortic valve 2001 Respiratory Surgical History: Reports: None GI Surgical History: Reports: Appendectomy, Bariatric Procedure, Cholecystectomy, Colonoscopy, Other (See Below) Other GI Surgeries/Procedures: gastric bypass Female Surgical History: Reports: Tubal Ligation, Other (See Below) Other Female Surgeries/Procedures: right breast lumpectomy Endocrine Surgical History: Reports: None Neurological Surgical History: Reports: None Musculoskeletal Surgical History: Reports: Carpal Tunnel, Other (See Below) Other Musculoskeletal Surgeries/Procedures:: right arm -carpal tunnel Oncologic Surgical History: Reports: Lumpectomy Dermatological Surgical History: Reports: None Social & Family History - Family History Family Medical History: No Pertinent Family History - Caffeine Use Caffeine Use: Reports: Coffee, Tea Caffeine Use Comment: 3-4 cups a day - Living Situation & Occupation Living situation: Reports: , with Family Occupation: Retired ED ROS GENERAL - Review of Systems Review Of Systems: See Below (see dictation) ED EXAM, GENERAL - Physical Exam Exam: See Below (see dictation) #1 Interpretation EKG Interpretation Comments: Heart rate = 155 bpm, atrial fibrillation with rapid ventricular rate, normal QRS interval, no STEMI. EKG and rhythm strip interpreted by me at 0217 #2 Interpretation EKG Interpretation Comments: Heart rate = 148 bpm, Afib with RVR, normal QRS interval, no STEMI. EKG and rhythm strip interpreted by me at 0245 #3 Interpretation EKG Interpretation Comments: Heart rate = 85 bpm, atrial fibrillation, normal QRS interval, no STEMI. EKG and rhythm strip interpreted by me at 0331 Course - Vital Signs Last Recorded V/S: Last Vital Signs Temp Pulse 103 H 05/18/21 06:23 Resp 30 H 05/18/21 06:23 BP 105/62 05/18/21 06:23 Pulse Ox 99 05/18/21 06:23 - Orders/Labs/Meds Orders: Active Orders 24 hr Category Date Time Status Cardiac Monitoring [RC] . DIRECTED Care 05/18/21 02:20 Active EKG 12 Lead [EKG Documentation Completion] [RC] STAT Care 05/18/21 03:20 Active EKG Documentation Completion [RC] STAT Care 05/18/21 02:20 Active Insert Mcnamara Catheter [Insert Urinary Catheter] [OM.PC] Care 05/18/21 03:00 Ordered Q24H Pulse Oximetry [RC] ASDIRECTED Care 05/18/21 02:20 Active Urinary Catheter Assessment [RC] ASDIRECTED Care 05/18/21 02:51 Active Sodium Chloride 0.9% [Saline Flush] Med 05/18/21 02:20 Active 10 ml FLUSH ASDIRECTED PRN Sodium Chloride 0.9% [Saline Flush] Med 05/18/21 02:20 Active 2.5 ml FLUSH ASDIRECTED PRN Saline Lock Insert [OM.PC] Stat Ot 05/18/21 02:20 Ordered Medication Orders Sodium Chloride (Sodium Chloride 0.9% 10 Ml Syringe) 10 ml FLUSH ASDIRECTED PRN PRN Reason: Keep Vein Open Sodium Chloride (Sodium Chloride 0.9% 2.5 Ml Syringe) 2.5 ml FLUSH ASDIRECTED PRN PRN Reason: Keep Vein Open Labs: Laboratory Tests 05/18/21 05/18/21 05/18/21 Range/Units 02:17 02:17 02:17 WBC 13.88 H (4.0-11.0) K/uL RBC 4.78 (4.30-5.90) M/uL Hgb 13.6 (12.0-16.0) g/dL Hct 45.0 (36.0-46.0) % MCV 94.1 (80.0-98.0) fL MCH 28.5 (27.0-32.0) pg MCHC 30.2 L (31.0-37.0) g/dL RDW Std Deviation 46.7 (28.0-62.0) fl RDW Coeff of Shaun 14 (11.0-15.0) % Plt Count 301 (150-400) K/uL MPV 10.10 (7.40-12.00) fL Neut % (Auto) 65.8 (48.0-80.0) % Lymph % (Auto) 25.6 (16.0-40.0) % [place] % (Auto) 7.3 (0.0-15.0) % Eos % (Auto) 1.1 (0.0-7.0) % Baso % (Auto) 0.2 (0.0-1.5) % Neut # (Auto) 9.1 H (1.4-5.7) K/uL Lymph # (Auto) 3.6 H (0.6-2.4) K/uL [place] # (Auto) 1.0 H (0.0-0.8) K/uL Eos # (Auto) 0.2 (0.0-0.7) K/uL Baso # (Auto) 0.0 (0.0-0.1) K/uL INR 3.21 APTT 33.1 H (18.6-31.3) SEC ABG pH (7.35-7.45) ABG pCO2 (35-45) mmHG ABG pO2 (80-105) mmHG ABG HCO3 (22-26) mEq/L ABG Total CO2 (23-27) mmol/L ABG Base Excess (-2.0-3.0) Sodium 142 (136-145) mmol/L Potassium 4.5 (3.5-5.1) mmol/L Chloride 103 (98-107) mmol/L Carbon Dioxide 23.7 (21.0-32.0) mmol/L BUN 25 H (7.0-18.0) mg/dL Creatinine 1.4 H (0.6-1.0) mg/dL Est Cr Clr Drug Dosing TNP Estimated GFR (MDRD) 37.2 ml/min Glucose 208 H (74-106) mg/dL Calcium 8.7 (8.5-10.1) mg/dL Magnesium 2.3 (1.8-2.4) mg/dL Total Bilirubin 0.4 (0.2-1.0) mg/dL AST 66 H (15-37) IU/L ALT 41 (14-63) IU/L Alkaline Phosphatase 182 H (46-116) U/L Troponin I < 0.050 (0.000-0.056) ng/mL B-Natriuretic Peptide (<100) PG/ML Total Protein 7.4 (6.4-8.2) g/dL Albumin 3.5 (3.4-5.0) g/dL Globulin 3.9 (2.6-4.0) g/dL Albumin/Globulin Ratio 0.9 (0.9-1.6) Urine Color Urine Appearance Urine pH (5.0-8.0) Ur Specific [place] (1.001-1.035) Urine Protein (NEGATIVE) mg/dL Urine Glucose (UA) (NEGATIVE) mg/dL Urine Ketones (NEGATIVE) mg/dL Urine Occult Blood (NEGATIVE) Urine Nitrite (NEGATIVE) Urine Bilirubin (NEGATIVE) Urine Urobilinogen (<2.0) EU/dL Ur Leukocyte Esterase (NEGATIVE) Urine RBC (0-2/HPF) Urine WBC (0-5/HPF) Ur Epithelial Cells (NONE-FEW) Urine Bacteria (NEGATIVE) Digoxin (0.9-2.0) ng/mL SARS-CoV-2 RNA (RL) (NEGATIVE) 05/18/21 05/18/21 05/18/21 Range/Units 02:17 02:19 02:33 WBC (4.0-11.0) K/uL RBC (4.30-5.90) M/uL Hgb (12.0-16.0) g/dL Hct (36.0-46.0) % MCV (80.0-98.0) fL MCH (27.0-32.0) pg MCHC (31.0-37.0) g/dL RDW Std Deviation (28.0-62.0) fl RDW Coeff of Shaun (11.0-15.0) % Plt Count (150-400) K/uL MPV (7.40-12.00) fL Neut % (Auto) (48.0-80.0) % Lymph % (Auto) (16.0-40.0) % [place] % (Auto) (0.0-15.0) % Eos % (Auto) (0.0-7.0) % Baso % (Auto) (0.0-1.5) % Neut # (Auto) (1.4-5.7) K/uL Lymph # (Auto) (0.6-2.4) K/uL [place] # (Auto) (0.0-0.8) K/uL Eos # (Auto) (0.0-0.7) K/uL Baso # (Auto) (0.0-0.1) K/uL INR APTT (18.6-31.3) SEC ABG pH (7.35-7.45) ABG pCO2 (35-45) mmHG ABG pO2 (80-105) mmHG ABG HCO3 (22-26) mEq/L ABG Total CO2 (23-27) mmol/L ABG Base Excess (-2.0-3.0) Sodium (136-145) mmol/L Potassium (3.5-5.1) mmol/L Chloride (98-107) mmol/L Carbon Dioxide (21.0-32.0) mmol/L BUN (7.0-18.0) mg/dL Creatinine (0.6-1.0) mg/dL Est Cr Clr Drug Dosing Estimated GFR (MDRD) ml/min Glucose (74-106) mg/dL Calcium (8.5-10.1) mg/dL Magnesium (1.8-2.4) mg/dL Total Bilirubin (0.2-1.0) mg/dL AST (15-37) IU/L ALT (14-63) IU/L Alkaline Phosphatase (46-116) U/L Troponin I (0.000-0.056) ng/mL B-Natriuretic Peptide 898 H (<100) PG/ML Total Protein (6.4-8.2) g/dL Albumin (3.4-5.0) g/dL Globulin (2.6-4.0) g/dL Albumin/Globulin Ratio (0.9-1.6) Urine Color Urine Appearance Urine pH (5.0-8.0) Ur Specific [place] (1.001-1.035) Urine Protein (NEGATIVE) mg/dL Urine Glucose (UA) (NEGATIVE) mg/dL Urine Ketones (NEGATIVE) mg/dL Urine Occult Blood (NEGATIVE) Urine Nitrite (NEGATIVE) Urine Bilirubin (NEGATIVE) Urine Urobilinogen (<2.0) EU/dL Ur Leukocyte Esterase (NEGATIVE) Urine RBC (0-2/HPF) Urine WBC (0-5/HPF) Ur Epithelial Cells (NONE-FEW) Urine Bacteria (NEGATIVE) Digoxin 0.5 L (0.9-2.0) ng/mL SARS-CoV-2 RNA (RL) NEGATIVE (NEGATIVE) 05/18/21 05/18/21 05/18/21 Range/Units 02:50 03:05 05:38 WBC (4.0-11.0) K/uL RBC (4.30-5.90) M/uL Hgb (12.0-16.0) g/dL Hct (36.0-46.0) % MCV (80.0-98.0) fL MCH (27.0-32.0) pg MCHC (31.0-37.0) g/dL RDW Std Deviation (28.0-62.0) fl RDW Coeff of Shaun (11.0-15.0) % Plt Count (150-400) K/uL MPV (7.40-12.00) fL Neut % (Auto) (48.0-80.0) % Lymph % (Auto) (16.0-40.0) % [place] % (Auto) (0.0-15.0) % Eos % (Auto) (0.0-7.0) % Baso % (Auto) (0.0-1.5) % Neut # (Auto) (1.4-5.7) K/uL Lymph # (Auto) (0.6-2.4) K/uL [place] # (Auto) (0.0-0.8) K/uL Eos # (Auto) (0.0-0.7) K/uL Baso # (Auto) (0.0-0.1) K/uL INR APTT (18.6-31.3) SEC ABG pH 7.36 (7.35-7.45) ABG pCO2 37 (35-45) mmHG ABG pO2 78 L (80-105) mmHG ABG HCO3 21 L (22-26) mEq/L ABG Total CO2 19.1 L (23-27) mmol/L ABG Base Excess -4.1 L (-2.0-3.0) Sodium (136-145) mmol/L Potassium (3.5-5.1) mmol/L Chloride (98-107) mmol/L Carbon Dioxide (21.0-32.0) mmol/L BUN (7.0-18.0) mg/dL Creatinine (0.6-1.0) mg/dL Est Cr Clr Drug Dosing Estimated GFR (MDRD) ml/min Glucose (74-106) mg/dL Calcium (8.5-10.1) mg/dL Magnesium (1.8-2.4) mg/dL Total Bilirubin (0.2-1.0) mg/dL AST (15-37) IU/L ALT (14-63) IU/L Alkaline Phosphatase (46-116) U/L Troponin I 0.147 H* (0.000-0.056) ng/mL B-Natriuretic Peptide (<100) PG/ML Total Protein (6.4-8.2) g/dL Albumin (3.4-5.0) g/dL Globulin (2.6-4.0) g/dL Albumin/Globulin Ratio (0.9-1.6) Urine Color DARK YELLOW Urine Appearance CLOUDY Urine pH 5.5 (5.0-8.0) Ur Specific [place] >= 1.030 (1.001-1.035) Urine Protein 30 H (NEGATIVE) mg/dL Urine Glucose (UA) NEGATIVE (NEGATIVE) mg/dL Urine Ketones NEGATIVE (NEGATIVE) mg/dL Urine Occult Blood LARGE H (NEGATIVE) Urine Nitrite NEGATIVE (NEGATIVE) Urine Bilirubin NEGATIVE (NEGATIVE) Urine Urobilinogen 1.0 (<2.0) EU/dL Ur Leukocyte Esterase MODERATE H (NEGATIVE) Urine RBC 35-40 (0-2/HPF) Urine WBC 20-25 (0-5/HPF) Ur Epithelial Cells MODERATE (NONE-FEW) Urine Bacteria 1+ H (NEGATIVE) Digoxin (0.9-2.0) ng/mL SARS-CoV-2 RNA (RL) (NEGATIVE) Meds: Medications Generic Name Dose Route Start Last Admin Trade Name Freq PRN Reason Stop Dose Admin Sodium Chloride 10 ml 05/18/21 02:20 Sodium Chloride 0.9% 10 Ml Syringe FLUSH ASDIRECTED PRN Keep Vein Open Sodium Chloride 2.5 ml 05/18/21 02:20 Sodium Chloride 0.9% 2.5 Ml Syringe FLUSH ASDIRECTED PRN Keep Vein Open Discontinued Medications Generic Name Dose Route Start Last Admin Trade Name Freq PRN Reason Stop Dose Admin Bumetanide 2 mg 05/18/21 02:49 05/18/21 03:21 Bumetanide 1 Mg/4 Ml Mdv IVPUSH 05/18/21 02:50 2 mg ONETIME ONE Administration Diltiazem HCl 20 mg 05/18/21 02:28 05/18/21 02:45 Diltiazem 25 Mg/5 Ml Sdv IVPUSH 05/18/21 02:29 20 mg ONETIME ONE Administration Diltiazem HCl 25 mg 05/18/21 03:23 05/18/21 03:24 Diltiazem 25 Mg/5 Ml Sdv IVPUSH 05/18/21 03:24 25 mg ONETIME ONE Administration Diltiazem HCl Confirm 05/18/21 03:23 05/18/21 04:22 Diltiazem 25 Mg/5 Ml Sdv Administered 05/18/21 03:24 Not Given Dose 25 mg .ROUTE .STK-MED ONE Ceftriaxone Sodium/Dextrose 1 50 mls @ 100 mls/hr 05/18/21 03:45 05/18/21 04:22 gm/ Premix IV 05/18/21 04:14 100 mls/hr ONETIME ONE Administration Lactated Ringer's 1,000 mls @ 999 mls/min 05/18/21 05:16 05/18/21 05:00 Ringers, Lactated IV 05/18/21 05:17 999 mls/min .BOLUS ONE Administration Lorazepam 0.5 mg 05/18/21 04:39 05/18/21 04:52 Lorazepam 2 Mg/Ml Sdv IVPUSH 05/18/21 04:40 0.5 mg ONETIME ONE Administration - Re-Assessments/Exams Free Text/Narrative Re-Assessment/Exam: 05/18/21 02:20 Patient is severely tachypneic, with respiratory rate = high 50s, placed on BiPAP for work of breathing. 05/18/21 02:45 Her work of breathing improved after being placed on BiPAP. 05/18/21 03:11 Heart rate ranges between 100-106 after 20 mg IV Cardizem, will repeat EKG. 05/18/21 03:24 Heart rate ranging between 110 - 120, will redose 25 mg IV Cardizem bolus. 05/18/21 03:34 Heart rate is now in the 80s after second dose of Cardizem. 05/18/21 06:14 Patient's troponin is elevated. Heart rate stable between 100-110, she does not require Cardizem drip at this time. Patient is therapeutic on Coumadin. Her work of breathing is significantly improved on BiPAP currently. I do not suspect need for intubation at this time. Patient will require transfer to outside facility for the need of higher level of care not available at this facility, and the need for search engine optimization consultant services unavailable at this facility. Any emergency conditions have been stabilized to the ability of the ED prior to the transfer. Case was discussed and accepted by Dr. Severino at . Departure - Departure Time of Disposition: 05:12 Disposition: DC/Tfer to [facility] 02 Condition: Serious Clinical Impression: Hx of aortic valve replacement, Atrial fibrillation with RVR, CHF exacerbation, Acute respiratory failure, Atypical chest pain, Anticoagulated on Coumadin, Cardiomyopathy, NSTEMI (non-ST elevated myocardial infarction) Pulmonary edema Qualifiers: Chronicity: acute Qualified Code(s): J81.0 - Acute pulmonary edema Urinary tract infection Qualifiers: Urinary tract infection type: acute cystitis Hematuria presence: with hematuria Qualified Code(s): N30.01 - Acute cystitis with hematuria - Discharge Information *PRESCRIPTION DRUG MONITORING PROGRAM REVIEWED*: Not Applicable *COPY OF PRESCRIPTION DRUG MONITORING REPORT IN PATIENT IVET: Not Applicable Referrals: PCP,None [Primary Care Provider] - Critical Care Note - Critical Care Note Total Time (mins): 75 Comments: CRITCAL CARE: The high probability of sudden, clinically significant deterioration in the patient's condition required the highest level of my preparedness to intervene urgently. The services I provided to this patient were to treat and/or prevent clinically significant deterioration. Services included the following: chart data review, reviewing nursing notes and/or old charts, documentation time, search engine optimization consultant collaboration regarding findings and treatment options, medication orders and management, direct patient care, vital sign assessments and ordering, interpreting and reviewing diagnostic studies/lab tests. Aggregate critical care time includes only time during which I was engaged in work directly related to the patient's care, as described above, whether at the bedside or elsewhere in the Emergency Department. It did not include time spent performing other reported procedures or the services of residents, students, nurses or physician assistants. Frequent interventions and/or frequent repeat evaluations were required as well as counseling and coordination of care regarding prognosis, treatments, and discussions with patient, staff and consultants. Critical Care (excluding other procedures): 75 minutes Sepsis Event Note (ED) - Evaluation Sepsis Screening Result: No Definite Risk - Focused Exam Vital Signs: Vital Signs Pulse Resp BP Pulse Ox 05/18/21 06:23 103 H 30 H 105/62 99 05/18/21 06:04 109 H 30 H 99/57 L 99 05/18/21 06:02 94 32 H 94/55 L 96 05/18/21 05:24 90 30 H 89/47 L 98 05/18/21 05:16 99 89/55 L 05/18/21 04:53 103 H 13 111/62 99 05/18/21 03:58 106 H 28 H 112/60 98 05/18/21 03:34 85 38 H 103/69 96 05/18/21 03:26 93 26 H 96/62 97 05/18/21 03:20 120 H 25 H 110/68 97 05/18/21 03:12 99 19 106/58 L 96 05/18/21 03:00 100 36 H 106/58 L 95 05/18/21 02:54 120 H 96/66 05/18/21 02:45 145 H 106/91 H 05/18/21 02:37 72 18 101/72 97 05/18/21 02:20 144 H 44 H 136/78 90 L - My Orders Last 24 Hours: My Active Orders 05/18/21 02:20 Cardiac Monitoring [RC] . DIRECTED EKG Documentation Completion [RC] STAT Pulse Oximetry [RC] ASDIRECTED Sodium Chloride 0.9% [Saline Flush] 10 ml FLUSH ASDIRECTED PRN Sodium Chloride 0.9% [Saline Flush] 2.5 ml FLUSH ASDIRECTED PRN Saline Lock Insert [OM.PC] Stat 05/18/21 02:51 Urinary Catheter Assessment [RC] ASDIRECTED 05/18/21 03:00 Insert Mcnamara Catheter [Insert Urinary Catheter] [OM.PC] Q24H 05/18/21 03:20 EKG 12 Lead [EKG Documentation Completion] [RC] STAT - Assessment/Plan Last 24 Hours: My Active Orders 05/18/21 02:20 Cardiac Monitoring [RC] . DIRECTED EKG Documentation Completion [RC] STAT Pulse Oximetry [RC] ASDIRECTED Sodium Chloride 0.9% [Saline Flush] 10 ml FLUSH ASDIRECTED PRN Sodium Chloride 0.9% [Saline Flush] 2.5 ml FLUSH ASDIRECTED PRN Saline Lock Insert [OM.PC] Stat 05/18/21 02:51 Urinary Catheter Assessment [RC] ASDIRECTED 05/18/21 03:00 Insert Mcnamara Catheter [Insert Urinary Catheter] [OM.PC] Q24H 05/18/21 03:20 EKG 12 Lead [EKG Documentation Completion] [RC] STAT
[2021-05-18] MEDS: Diltiazem 25 MG/5 ML SDV IVPUSH ONE ×2 (02:43→02:45)
[2021-05-18] MEDS ORDERED: Bumetanide 1 MG/4 ML MDV IVPUSH ONE (02:49)
[2021-05-18 02:52] LABS: BLOOD UREA NITROGEN,BUN 25 mg/dL (7.0-18.0); CARBON DIOXIDE,CO2 23.7 mmol/L (21.0-32.0); CHLORIDE,CL 103 mmol/L (98-107); GLUCOSE RANDOM 208 mg/dL (74-106); POTASSIUM,K 4.5 mmol/L (3.5-5.1); SODIUM,NA 142 mmol/L (136-145)
[2021-05-18] MEDS ORDERED: Diltiazem 25 MG/5 ML SDV ONE (03:23)
[2021-05-18] MEDS ORDERED: Diltiazem 25 MG/5 ML SDV IVPUSH ONE (03:23)
--- NOTE | 2021-05-18 03:25 | CR ---
Indication: Shortness of breath Comparison: Single view chest December 03, 2020 Technique: Single AP view chest Findings: There is hyperinflation and chronic interstitial change. There are increased interstitial markings from comparison exam commensurate with pulmonary edema with are stable basilar airspace opacities. The cardiac silhouette is enlarged with median sternotomy wires. The bony thorax is grossly intact. Impression: Increasing interstitial markings likely representing pulmonary edema with basilar airspace opacities likely representing atelectasis, infiltrates are difficult to exclude. Dictated by Teodoro Dietz MD @ 05/18/2021 7:36:[address] Teodoro Dietz @ May 18 2021 7:36AM
[2021-05-18] MEDS ORDERED: cefTRIAXone 1 GM in Premix Bag 1 BAG IV ONE (03:45)
[2021-05-18] MEDS ORDERED: LORazepam 2 MG/ML SDV IVPUSH ONE (04:39)
[2021-05-18] MEDS ORDERED: Lactated Ringers 1,000 ML IV ONE (05:16)
[2021-05-18 06:23] VITALS: BP 105/62; PULSE 103
[2021-05-18] MEDS ORDERED: Diltiazem 100 MG in Sodium Chloride 0.9% 100 ML IV SCH (07:15)
[2021-05-18] MEDS ORDERED: fentaNYL 1,000 MCG in Sodium Chloride 0.9% 80 ML IV ONE (08:15)
--- NOTE | 2021-05-18 08:30 | CR ---
Indication: Post intubation Comparison: Single-view chest May 18, 2000 21 Technique: Single AP view chest Findings: There is hyperinflation and chronic interstitial change with interval placement of endotracheal and enteric tubes with endotracheal tube tip 2.1 centimeters from the jared. There is slightly improving aeration of the any thoraces with persistent pulmonary edema with basilar atelectasis versus scar. The cardiac silhouette is stably enlarged with median sternotomy wires. The bony thorax is grossly intact. Impression: Hyperinflation and chronic interstitial changes with satisfactory support lines and tubes. Persistent pulmonary edema. Dictated by Teodoro Dietz MD @ 05/18/2021 8:28:[address] Teodoro Dietz @ May 18 2021 8:28AM
== END 2021-05-18 08:30 ==
LOC: MW.ED 02:16
DX: J81.0 Acute pulmonary edema (principal); N30.01 Acute cystitis with hematuria; Z20.822 Contact with and (suspected) exposure to COVID-19; I48.91 Unspecified atrial fibrillation; I11.0 Hypertensive heart disease with heart failure; I50.9 Heart failure, unspecified; K21.9 Gastro-esophageal reflux disease without esophagitis; Z79.899 Other long term (current) drug therapy
CPT/HCPCS: 31500; 36415; 36600; 43752; 51702; 71045; 80053; 80162; 81001; 82803; 83735; 83880; 84484; 85025; 85610; 85730; 93005; 94660; 96365; 96375; 96376; 99285; J0696; J2060; J3490; J7120; U0002

== ENCOUNTER 2021-05-25 08:04 | Emergency (ER) | payer MEDICARE, OTHER ==
--- NOTE | 2021-05-25 08:10 | EDM.PDOC ---
ED HPI GENERAL MEDICAL PROBLEM - General Chief Complaint: Cardiovascular Problem Stated Complaint: SOB Time Seen by Provider: 05/25/21 08:05 - History of Present Illness INITIAL COMMENTS - FREE TEXT/NARRATIVE: History of present illness: [] Review of systems: As per history of present illness and below otherwise all systems reviewed and negative. Past medical history: As per history of present illness and as reviewed below otherwise noncontributory. This patient who has had a heart attack in the past says she has burning in her chest that is not similar to angina or heart attack. She takes omeprazole at night when she eats sometimes but she has not taken any today. She says she feels like there is a burning and runs up from her stomach to the chest. The patient has an appointment with her primary doctor at 10 AM today. She also has just gotten back from [place] where we sent her 7 days ago after she came in with chest pain. Surgical history: As per history of present illness and as reviewed below otherwise n oncontributory. Social history: No reported history of drug or alcohol abuse. Family history: As per history of present illness and as reviewed below otherwise noncontributory. Physical exam: Constitutional - well developed, well-nourished and in no acute distress HEENT - normocephalic, no evidence of trauma - external nose and mouth normal - no mass in neck and no JVD - mucosae moist EYES - full EOM, PERRL, no icterus - no evidence of inflammation, injection, or drainage Respiratory - no respiratory distress, equal bilateral expansion, lungs clear to auscultation and no abnormal lung sounds Cardiovascular - Regular Rhythm with S1 and S2 appreciated and no murmur, gallop or rub. GI - abdomen soft without distension or organomegaly - normal bowel sounds - no guard or rebound Musculoskeletal no gross deformity of long bones or joints - no tenderness, swelling or edema Neurologic - Alert and oriented times four - CN II-XII grossly intact - motor sensory and coordination symmetrically normal Psychiatric - appropriate mood and affect with normal thought content Hematologic - No petechiae or purpura - mucosa appropriate color and sclera not pale - normal nail bed color and refill Integument - no rash or evidence of trauma - normal turgor Diagnostics: [] Therapeutics: [] Impression: [] Plan: [] Definitive disposition and diagnosis as appropriate pending reevaluation and review of above. - Related Data Allergies Allergy/AdvReac Type Severity Reaction Status Date / Time No Known Allergies Allergy Verified 05/25/21 08:08 Home Meds: Home Meds Methadone 10 mg PO TID PRN 01/12/18 [History] DULoxetine [Cymbalta] 60 mg PO DAILY 10/10/18 [History] Digoxin [Lanoxin] 62.5 mcg PO DAILY 11/08/18 [History] Levothyroxine 75 mcg PO ACBREAKFAST 11/08/18 [History] Lisinopril 2.5 mg PO BID 11/08/18 [History] carvediloL [Carvedilol] 12.5 mg PO BIDMEALS 11/08/18 [History] Bumetanide 2 mg PO DAILY 07/05/19 [History] Warfarin [Coumadin] 6 mg PO DAILY 14 Days #14 tab 07/12/19 [Rx] Diltiazem [Dilacor XR] 240 mg PO DAILY 08/03/19 [History] Iron 27 mg PO DAILY 08/03/19 [History] Omeprazole Magnesium [Prilosec Otc] 40 mg PO DAILY 08/03/19 [History] polyethylene glycoL 3350 [MiraLAX] 17 gm PO DAILY 03/26/20 [History] Albuterol Sulfate [Proventil Hfa] 1 - 2 puff INH ASDIRECTED PRN 05/19/20 [Hist ory] Albuterol [Proventil Neb Soln] 3 ml INH ASDIRECTED PRN 05/19/20 [History] Calcium Carb, Citrate/Vit D3 [Citracal + D ER] 1 each PO DAILY 05/19/20 [History] Non-Formulary Medication [NF Drug] 1 each 05/19/20 [History] diphenhydrAMINE [Benadryl] 50 mg PO BEDTIME 05/19/20 [History] oxyCODONE 5 mg PO Q6HR 05/19/20 [History] Past Medical History HEENT History: Reports: Impaired Vision, Other (See Below) Other HEENT History: no teeth or dentures Cardiovascular History: Reports: Afib, Cardiomyopathy, Heart Failure, Heart Valve Replacement, Hypertension Other Cardiovascular History: mitral valve regurgitation Respiratory History: Reports: SOB Gastrointestinal History: Reports: GERD Other Gastrointestinal History: acid reflux Genitourinary History: Reports: None 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 TRUCK CATERER History: pessery Musculoskeletal History: Reports: Arthritis, Back Pain, Chronic, Other (See Below) Other Musculoskeletal History: scoliosis, bulging discs, carpal tunnel, restless leg Neurological History: Reports: TIA Psychiatric History: Reports: Anxiety, Depression Endocrine/Metabolic History: Reports: None Hematologic History: Reports: Anticoagulation Therapy Immunologic History: Reports: None Oncologic (Cancer) History: Reports: Breast Other Oncologic History: right breast ca Dermatologic History: Reports: None Other Dermatologic History: dry skin - Infectious Disease History Infectious Disease History: Reports: None Other Infectious Disease History: patient is unsure - Past Surgical History Head Surgeries/Procedures: Reports: None HEENT Surgical History: Reports: None Cardiovascular Surgical History: Reports: Valve Replacement Other Cardiovascular Surgeries/Procedures: mechanical aortic valve 2001 Respiratory Surgical History: Reports: None GI Surgical History: Reports: Appendectomy, Bariatric Procedure, Cholecystectomy, Colonoscopy, Other (See Below) Other GI Surgeries/Procedures: gastric bypass Female Surgical History: Reports: Tubal Ligation, Other (See Below) Other Female Surgeries/Procedures: right breast lumpectomy Endocrine Surgical History: Reports: None Neurological Surgical History: Reports: None Musculoskeletal Surgical History: Reports: Carpal Tunnel, Other (See Below) Other Musculoskeletal Surgeries/Procedures:: right arm -carpal tunnel Oncologic Surgical History: Reports: Lumpectomy Dermatological Surgical History: Reports: None Social & Family History - Family History Family Medical History: No Pertinent Family History - Caffeine Use Caffeine Use: Reports: Coffee, Tea Caffeine Use Comment: 3-4 cups a day - Living Situation & Occupation Living situation: Reports: , with Family Occupation: Retired ED ROS GENERAL - Review of Systems Review Of Systems: Comprehensive ROS is negative, except as noted in HPI. ED EXAM, GENERAL - Physical Exam Exam: See Below Free Text/Narrative:: My physical exam is in the HPI #1 Interpretation EKG Interpretation Comments: EKG done at 8:04 AM true fibrillation with heart rate of 79 QT of 399 and a TX that is not measured because of the atrial fibrillation. The axis -1. She is late transition R wave in multiple T wave inversions. Compared to 05/18/2021 there is no change. In view of no change there is no obvious acute ischemia or injury. Course - Vital Signs Last Recorded V/S: Last Vital Signs Temp 36.3 C 05/25/21 08:20 Pulse 84 05/25/21 08:54 Resp 89 H 05/25/21 08:54 BP 94/53 L 05/25/21 08:54 Pulse Ox 89 L 05/25/21 08:54 - Orders/Labs/Meds Orders: Active Orders 24 hr Category Date Time Status EKG Documentation Completion [RC] AM Care 05/25/21 08:14 Active Sodium Chloride 0.9% [Saline Flush] Med 05/25/21 08:14 Active 10 ml FLUSH ASDIRECTED PRN Sodium Chloride 0.9% [Saline Flush] Med 05/25/21 08:14 Active 2.5 ml FLUSH ASDIRECTED PRN Saline Lock Insert [OM.PC] Stat Oth 05/25/21 08:14 Ordered Medication Orders Sodium Chloride (Sodium Chloride 0.9% 10 Ml Syringe) 10 ml FLUSH ASDIRECTED PRN PRN Reason: Keep Vein Open Last Admin: 05/25/21 09:02 Dose: 10 ml Documented by: Admin: 05/25/21 09:01 Dose: 10 ml Documented by: MARIUSZ Sodium Chloride (Sodium Chloride 0.9% 2.5 Ml Syringe) 2.5 ml FLUSH ASDIRECTED PRN PRN Reason: Keep Vein Open Last Admin: 05/25/21 08:59 Dose: 2.5 ml Documented by: MARIUSZ Labs: Laboratory Tests 05/25/21 05/25/21 05/25/21 Range/Units 08:05 08:05 08:05 WBC 6.52 (4.0-11.0) K/uL RBC 4.08 L (4.30-5.90) M/uL Hgb 11.7 L (12.0-16.0) g/dL Hct 37.1 (36.0-46.0) % MCV 90.9 (80.0-98.0) fL MCH 28.7 (27.0-32.0) pg MCHC 31.5 (31.0-37.0) g/dL RDW Std Deviation 46.2 (28.0-62.0) fl RDW Coeff of Shaun 14 (11.0-15.0) % Plt Count 301 (150-400) K/uL MPV 10.20 (7.40-12.00) fL Neut % (Auto) 58.1 (48.0-80.0) % Lymph % (Auto) 27.3 (16.0-40.0) % [place] % (Auto) 10.7 (0.0-15.0) % Eos % (Auto) 3.4 (0.0-7.0) % Baso % (Auto) 0.5 (0.0-1.5) % Neut # (Auto) 3.8 (1.4-5.7) K/uL Lymph # (Auto) 1.8 (0.6-2.4) K/uL [place] # (Auto) 0.7 (0.0-0.8) K/uL Eos # (Auto) 0.2 (0.0-0.7) K/uL Baso # (Auto) 0.0 (0.0-0.1) K/uL Nucleated RBC % 0.0 /100WBC Nucleated RBCs # 0 K/uL INR 3.33 Sodium 140 (136-145) mmol/L Potassium 4.5 (3.5-5.1) mmol/L Chloride 100 (98-107) mmol/L Carbon Dioxide 32.5 H (21.0-32.0) mmol/L BUN 16 (7.0-18.0) mg/dL Creatinine 1.0 (0.6-1.0) mg/dL Est Cr Clr Drug Dosing 37.60 mL/min Estimated GFR (MDRD) 54.8 ml/min Glucose 106 (74-106) mg/dL Calcium 8.6 (8.5-10.1) mg/dL Total Bilirubin 0.4 (0.2-1.0) mg/dL AST 38 H (15-37) IU/L ALT 54 (14-63) IU/L Alkaline Phosphatase 197 H (46-116) U/L Troponin I < 0.050 (0.000-0.056) ng/mL Total Protein 6.5 (6.4-8.2) g/dL Albumin 3.3 L (3.4-5.0) g/dL Globulin 3.2 (2.6-4.0) g/dL Albumin/Globulin Ratio 1.0 (0.9-1.6) Meds: Medications Generic Name Dose Route Start Last Admin Trade Name Freq PRN Reason Stop Dose Admin Sodium Chloride 10 ml 05/25/21 08:14 05/25/21 09:02 Sodium Chloride 0.9% 10 Ml Syringe FLUSH 10 ml ASDIRECTED PRN Administration Keep Vein Open Sodium Chloride 2.5 ml 05/25/21 08:14 05/25/21 08:59 Sodium Chloride 0.9% 2.5 Ml Syringe FLUSH 2.5 ml ASDIRECTED PRN Administration Keep Vein Open Discontinued Medications Generic Name Dose Route Start Last Admin Trade Name Freq PRN Reason Stop Dose Admin Al Hydroxide/Mg Hydroxide 15 0 ml 05/25/21 08:14 05/25/21 08:49 ml/ Lidocaine HCl 5 ml PO 05/25/21 08:15 1 each ONETIME ONE Administration - Radiology Interpretation Free Text/Narrative:: 9:25 AM the patient feels better. Labs are good. Plan to send her to her appointment as scheduled. Departure - Departure Time of Disposition: 09:24 Disposition: Home, Self-Care 01 Condition: Good Clinical Impression: Gastro-esophageal reflux Instructions: Gastroesophageal Reflux Disease, Adult, [id number] Forms: ED Department Discharge Additional Instructions: Keep your appointment with Dr. Lewis Return if worse The following information is given to patients seen in the emergency department who are being discharged to home. This information is to outline your options for follow-up care. We provide all patients seen in our emergency department with a follow-up referral. The need for follow-up, as well as the timing and circumstances, are variable depending upon the specifics of your emergency department visit. If you don't have a primary care physician on staff, we will provide you with a referral. We always advise you to contact your personal physician following an emergency department visit to inform them of the circumstance of the visit and for follow-up with them and/or the need for any referrals to a consulting specialist. The emergency department will also refer you to a specialist when appropriate. This referral assures that you have the opportunity for follow-up care with a specialist. All of these measure are taken in an effort to provide you with optimal care, which includes your follow-up. Under all circumstances we always encourage you to contact your private physician who remains a resource for coordinating your care. When calling for follow-up care, please make the office aware that this follow-up is from your recent emergency room visit. If for any reason you are refused follow-up, please contact the [facility] Emergency Department at and asked to speak to the emergency department charge nurse. [facility] - Primary [facility] [address] [place] [address] [facility] [address] [place] [id number] Sepsis Event Note (ED) - Focused Exam Vital Signs: Vital Signs Temp Pulse Resp BP Pulse Ox 05/25/21 08:54 84 89 H 94/53 L 89 L 05/25/21 08:34 74 18 105/53 L 91 L 05/25/21 08:20 36.3 C 86 18 108/60 94 L 05/25/21 08:15 36.3 C 80 19 105/50 L 92 L - My Orders Last 24 Hours: My Active Orders 05/25/21 08:14 EKG Documentation Completion [RC] AM Sodium Chloride 0.9% [Saline Flush] 10 ml FLUSH ASDIRECTED PRN Sodium Chloride 0.9% [Saline Flush] 2.5 ml FLUSH ASDIRECTED PRN Saline Lock Insert [OM.PC] Stat - Assessment/Plan Last 24 Hours: My Active Orders 05/25/21 08:14 EKG Documentation Completion [RC] AM Sodium Chloride 0.9% [Saline Flush] 10 ml FLUSH ASDIRECTED PRN Sodium Chloride 0.9% [Saline Flush] 2.5 ml FLUSH ASDIRECTED PRN Saline Lock Insert [OM.PC] Stat
[2021-05-25] MEDS ORDERED: Alum Hydrox/Mag Hydrox/Simeth 15 ML, Lidocaine 2% 5 ML PO ONE ×2 (08:14)
[2021-05-25] MEDS ORDERED: Sodium Chloride 0.9% 2.5 ML Syringe FLUSH PRN (08:14)
[2021-05-25 08:52] LABS: BLOOD UREA NITROGEN,BUN 16 mg/dL (7.0-18.0); CARBON DIOXIDE,CO2 32.5 mmol/L (21.0-32.0); CHLORIDE,CL 100 mmol/L (98-107); GLUCOSE RANDOM 106 mg/dL (74-106); POTASSIUM,K 4.5 mmol/L (3.5-5.1); SODIUM,NA 140 mmol/L (136-145)
[2021-05-25] MEDS: Sodium Chloride 0.9% 10 ML Syringe FLUSH PRN ×2 (09:01→09:02)
[2021-05-25 09:06] VITALS: BP 94/53; PULSE 84
== END 2021-05-25 09:05 | disposition home or self-care (01) ==
LOC: MW.ED 08:04
DX: K21.9 Gastro-esophageal reflux disease without esophagitis (principal); I48.91 Unspecified atrial fibrillation; I11.0 Hypertensive heart disease with heart failure; I50.9 Heart failure, unspecified; Z79.01 Long term (current) use of anticoagulants; Z79.899 Other long term (current) drug therapy
CPT/HCPCS: 36415; 80053; 84484; 85025; 85610; 93005; 99285; A9270; 93010; 99283

== ENCOUNTER 2021-06-29 21:41 | Emergency (ER) | payer MEDICARE, OTHER ==
[2021-06-29] MEDS ORDERED: Sodium Chloride 0.9% 2.5 ML Syringe FLUSH PRN ×2 (21:44→22:12)
[2021-06-29] MEDS ORDERED: Sodium Chloride 0.9% 10 ML Syringe FLUSH PRN ×2 (21:44→22:12)
--- NOTE | 2021-06-29 22:15 | EDM.PDOC ---
ED HPI GENERAL MEDICAL PROBLEM - General Chief Complaint: Cardiovascular Problem Stated Complaint: TROUBLE BREATHING Time Seen by Provider: 06/29/21 21:54 - History of Present Illness INITIAL COMMENTS - FREE TEXT/NARRATIVE: History of present illness: [] The patient says she has epigastric pain and pain in her periumbilical area. She has hernias in both places. The patient complains of burning pain in those areas. She is not vomiting. She is not dizzy weak or having other symptoms. Patient has no change in bowel or bladder habits. I seen the patient previously when she came in and she was feeling sick and burning in her abdomen. At that time she had an appointment in the afternoon and I got her finished and everything evaluated safely cleared her to see her primary care doctor but her son-in-law had canceled her appointment so she had to reschedule. The patient is due to have her hernia fixed in her epigastrium and periumbilical area. That hernia fix is gone to be after she has her second Covid vaccine interatrial fib addressed. She is in chronic atrial fibrillation and said her mixer helper wants to get her out of that before they do her hernia surgery. The patient is on warfarin. Review of systems: As per history of present illness and below otherwise all systems reviewed and negative. Past medical history: As per history of present illness and as reviewed below otherwise noncontributory. Surgical history: As per history of present illness and as reviewed below otherwise noncontributory. Social history: No reported history of drug or alcohol abuse. Family history: As per history of present illness and as reviewed below otherwise noncontributory. Physical exam: Constitutional - well developed, well-nourished and in no acute distress HEENT - normocephalic, no evidence of trauma - external nose and mouth normal - no mass in neck and no JVD - mucosae moist EYES - full EOM, PERRL, no icterus - no evidence of inflammation, injection, or drainage Respiratory - no respiratory distress, equal bilateral expansion, lungs clear to auscultation and no abnormal lung sounds Cardiovascular - Regular Rhythm with S1 and S2 appreciated and no murmur, gallop or rub. GI - abdomen soft without distension or organomegaly - normal bowel sounds - no guard or rebound-the patient is tender epigastric area nontender hernia on the periumbilical area. Both are reducible. Musculoskeletal no gross deformity of long bones or joints - no tenderness, swelling or edema Neurologic - Alert and oriented times four - CN II-XII grossly intact - motor sensory and coordination symmetrically normal Psychiatric - appropriate mood and affect with normal thought content Hematologic - No petechiae or purpura - mucosa appropriate color and sclera not pale - normal nail bed color and refill Integument - no rash or evidence of trauma - normal turgor Diagnostics: [] Therapeutics: [] Impression: [] Plan: [] Definitive disposition and diagnosis as appropriate pending reevaluation and review of above. - Related Data Allergies Allergy/AdvReac Type Severity Reaction Status Date / Time No Known Allergies Allergy Verified 06/29/21 21:43 Home Meds: Home Meds Methadone 10 mg PO TID PRN 01/12/18 [History] DULoxetine [Cymbalta] 60 mg PO DAILY 10/10/18 [History] Digoxin [Lanoxin] 62.5 mcg PO DAILY 11/08/18 [History] Levothyroxine 75 mcg PO ACBREAKFAST 11/08/18 [History] Lisinopril 2.5 mg PO BID 11/08/18 [History] carvediloL [Carvedilol] 12.5 mg PO BIDMEALS 11/08/18 [History] Bumetanide 2 mg PO DAILY 07/05/19 [History] Warfarin [Coumadin] 6 mg PO DAILY 14 Days #14 tab 07/12/19 [Rx] Diltiazem [Dilacor XR] 240 mg PO DAILY 08/03/19 [History] Iron 27 mg PO DAILY 08/03/19 [History] Omeprazole Magnesium [Prilosec Otc] 40 mg PO DAILY 08/03/19 [History] polyethylene glycoL 3350 [MiraLAX] 17 gm PO DAILY 03/26/20 [History] Albuterol Sulfate [Proventil Hfa] 1 - 2 puff INH ASDIRECTED PRN 05/19/20 [History] Albuterol [Proventil Neb Soln] 3 ml INH ASDIRECTED PRN 05/19/20 [History] Calcium Carb, Citrate/Vit D3 [Citracal + D ER] 1 each PO DAILY 05/19/20 [History] Non-Formulary Medication [NF Drug] 1 each 05/19/20 [History] diphenhydrAMINE [Benadryl] 50 mg PO BEDTIME 05/19/20 [History] oxyCODONE 5 mg PO Q6HR 05/19/20 [History] Past Medical History HEENT History: Reports: Impaired Vision, Other (See Below) Other HEENT History: no teeth or dentures Cardiovascular History: Reports: Afib, Cardiomyopathy, Heart Failure, Heart Valve Replacement, Hypertension Other Cardiovascular History: mitral valve regurgitation Respiratory History: Reports: SOB Gastrointestinal History: Reports: GERD Other Gastrointestinal History: acid reflux Genitourinary History: Reports: None RISK OFFICER History: Reports: Other RISK OFFICER History: pessery Musculoskeletal History: Reports: Arthritis, Back Pain, Chronic, Other (See Below) Other Musculoskeletal History: scoliosis, bulging discs, carpal tunnel, restless leg Neurological History: Reports: TIA Psychiatric History: Reports: Anxiety, Depression Endocrine/Metabolic History: Reports: None Hematologic History: Reports: Anticoagulation Therapy Immunologic History: Reports: None Oncologic (Cancer) History: Reports: Breast Other Oncologic History: right breast ca Dermatologic History: Reports: None Other Dermatologic History: dry skin - Infectious Disease History Infectious Disease History: Reports: None Other Infectious Disease History: patient is unsure - Past Surgical History Head Surgeries/Procedures: Reports: None HEENT Surgical History: Reports: None Cardiovascular Surgical History: Reports: Valve Replacement Other Cardiovascular Surgeries/Procedures: mechanical aortic valve 2000 Respiratory Surgical History: Reports: None GI Surgical History: Reports: Appendectomy, Bariatric Procedure, Cholecystectomy, Colonoscopy, Other (See Below) Other GI Surgeries/Procedures: gastric bypass Female Surgical History: Reports: Tubal Ligation, Other (See Below) Other Female Surgeries/Procedures: right breast lumpectomy Endocrine Surgical History: Reports: None Neurological Surgical History: Reports: None Musculoskeletal Surgical History: Reports: Carpal Tunnel, Other (See Below) Other Musculoskeletal Surgeries/Procedures:: right arm -carpal tunnel Oncologic Surgical History: Reports: Lumpectomy Dermatological Surgical History: Reports: None Social & Family History - Family History Family Medical History: No Pertinent Family History - Caffeine Use Caffeine Use: Reports: None Caffeine Use Comment: 3-4 cups a day - Living Situation & Occupation Living situation: Reports: , with Family Occupation: Retired ED ROS GENERAL - Review of Systems Review Of Systems: Comprehensive ROS is negative, except as noted in HPI. ED EXAM, GENERAL - Physical Exam Exam: See Below Free Text/Narrative:: My physical exam as in the HPI #1 Interpretation EKG Interpretation Comments: EKG done 06/29/2021 time 9 4123 rhythm atrial fibrillation ventricular rate 92 QT duration 396 [place] XX 5 nonspecific T wave abnormality in lateral leads compared to 05/27/2021 no change impression no change of significance Course - Vital Signs Last Recorded V/S: Last Vital Signs Temp 36.0 C L 06/29/21 21:43 Pulse 89 06/29/21 21:43 Resp 18 06/29/21 21:43 BP 142/71 H 06/29/21 21:43 Pulse Ox 97 06/29/21 21:43 - Orders/Labs/Meds Orders: Active Orders 24 hr Category Date Time Status Chest 1V Frontal [CR] Stat Exams 06/29/21 21:44 Taken Sodium Chloride 0.9% [Saline Flush] Med 06/29/21 21:44 Active 10 ml FLUSH ASDIRECTED PRN Sodium Chloride 0.9% [Saline Flush] Med 06/29/21 22:12 Active 10 ml FLUSH ASDIRECTED PRN Sodium Chloride 0.9% [Saline Flush] Med 06/29/21 21:44 Active 2.5 ml FLUSH ASDIRECTED PRN Sodium Chloride 0.9% [Saline Flush] Med 06/29/21 22:12 Active 2.5 ml FLUSH ASDIRECTED PRN Saline Lock Insert [OM.PC] Stat Oth 06/29/21 21:44 Ordered Saline Lock Insert [OM.PC] Stat Oth 06/29/21 22:12 Ordered Medication Orders Sodium Chloride (Sodium Chloride 0.9% 10 Ml Syringe) 10 ml FLUSH ASDIRECTED PRN PRN Reason: Keep Vein Open Sodium Chloride (Sodium Chloride 0.9% 2.5 Ml Syringe) 2.5 ml FLUSH ASDIRECTED PRN PRN Reason: Keep Vein Open Sodium Chloride (Sodium Chloride 0.9% 10 Ml Syringe) 10 ml FLUSH ASDIRECTED PRN PRN Reason: Keep Vein Open Sodium Chloride (Sodium Chloride 0.9% 2.5 Ml Syringe) 2.5 ml FLUSH ASDIRECTED PRN PRN Reason: Keep Vein Open Labs: Laboratory Tests 06/29/21 06/29/21 06/29/21 Range/Units 21:45 21:45 21:45 WBC 7.03 (4.0-11.0) K/uL RBC 4.18 L (4.30-5.90) M/uL Hgb 11.5 L (12.0-16.0) g/dL Hct 36.7 (36.0-46.0) % MCV 87.8 (80.0-98.0) fL MCH 27.5 (27.0-32.0) pg MCHC 31.3 (31.0-37.0) g/dL RDW Std Deviation 43.6 (28.0-62.0) fl RDW Coeff of Shaun 14 (11.0-15.0) % Plt Count 330 (150-400) K/uL MPV 10.30 (7.40-12.00) fL Neut % (Auto) 56.8 (48.0-80.0) % Lymph % (Auto) 30.6 (16.0-40.0) % [place] % (Auto) 9.7 (0.0-15.0) % Eos % (Auto) 2.3 (0.0-7.0) % Baso % (Auto) 0.6 (0.0-1.5) % Neut # (Auto) 4.0 (1.4-5.7) K/uL Lymph # (Auto) 2.2 (0.6-2.4) K/uL [place] # (Auto) 0.7 (0.0-0.8) K/uL Eos # (Auto) 0.2 (0.0-0.7) K/uL Baso # (Auto) 0.0 (0.0-0.1) K/uL Nucleated RBC % 0.0 /100WBC Nucleated RBCs # 0 K/uL INR 2.78 Sodium 141 (136-145) mmol/L Potassium 4.7 (3.5-5.1) mmol/L Chloride 102 (98-107) mmol/L Carbon Dioxide 33.7 H (21.0-32.0) mmol/L BUN 18 (7.0-18.0) mg/dL Creatinine 1.1 H (0.6-1.0) mg/dL Est Cr Clr Drug Dosing 34.18 mL/min Estimated GFR (MDRD) 49.1 ml/min Glucose 76 (74-106) mg/dL Lactic Acid (0.4-2.0) mmol/L Calcium 9.2 (8.5-10.1) mg/dL Total Bilirubin 0.3 (0.2-1.0) mg/dL AST 22 (15-37) IU/L ALT 23 (14-63) IU/L Alkaline Phosphatase 108 (46-116) U/L Troponin I < 0.050 (0.000-0.056) ng/mL Total Protein 7.2 (6.4-8.2) g/dL Albumin 3.6 (3.4-5.0) g/dL Globulin 3.6 (2.6-4.0) g/dL Albumin/Globulin Ratio 1.0 (0.9-1.6) Lipase (73-393) U/L 06/29/21 06/29/21 Range/Units 21:45 22:26 WBC (4.0-11.0) K/uL RBC (4.30-5.90) M/uL Hgb (12.0-16.0) g/dL Hct (36.0-46.0) % MCV (80.0-98.0) fL MCH (27.0-32.0) pg MCHC (31.0-37.0) g/dL RDW Std Deviation (28.0-62.0) fl RDW Coeff of Shaun (11.0-15.0) % Plt Count (150-400) K/uL MPV (7.40-12.00) fL Neut % (Auto) (48.0-80.0) % Lymph % (Auto) (16.0-40.0) % [place] % (Auto) (0.0-15.0) % Eos % (Auto) (0.0-7.0) % Baso % (Auto) (0.0-1.5) % Neut # (Auto) (1.4-5.7) K/uL Lymph # (Auto) (0.6-2.4) K/uL [place] # (Auto) (0.0-0.8) K/uL Eos # (Auto) (0.0-0.7) K/uL Baso # (Auto) (0.0-0.1) K/uL Nucleated RBC % /100WBC Nucleated RBCs # K/uL INR Sodium (136-145) mmol/L Potassium (3.5-5.1) mmol/L Chloride (98-107) mmol/L Carbon Dioxide (21.0-32.0) mmol/L BUN (7.0-18.0) mg/dL Creatinine (0.6-1.0) mg/dL Est Cr Clr Drug Dosing mL/min Estimated GFR (MDRD) ml/min Glucose (74-106) mg/dL Lactic Acid 0.9 (0.4-2.0) mmol/L Calcium (8.5-10.1) mg/dL Total Bilirubin (0.2-1.0) mg/dL AST (15-37) IU/L ALT (14-63) IU/L Alkaline Phosphatase (46-116) U/L Troponin I (0.000-0.056) ng/mL Total Protein (6.4-8.2) g/dL Albumin (3.4-5.0) g/dL Globulin (2.6-4.0) g/dL Albumin/Globulin Ratio (0.9-1.6) Lipase 163 (73-393) U/L Meds: Medications Generic Name Dose Route Start Last Admin Trade Name Freq PRN Reason Stop Dose Admin Sodium Chloride 10 ml 06/29/21 21:44 Sodium Chloride 0.9% 10 Ml Syringe FLUSH ASDIRECTED PRN Keep Vein Open Sodium Chloride 2.5 ml 06/29/21 21:44 Sodium Chloride 0.9% 2.5 Ml Syringe FLUSH ASDIRECTED PRN Keep Vein Open Sodium Chloride 10 ml 06/29/21 22:12 Sodium Chloride 0.9% 10 Ml Syringe FLUSH ASDIRECTED PRN Keep Vein Open Sodium Chloride 2.5 ml 06/29/21 22:12 Sodium Chloride 0.9% 2.5 Ml Syringe FLUSH ASDIRECTED PRN Keep Vein Open Departure - Departure Time of Disposition: 23:06 Disposition: Home, Self-Care 01 Condition: Good Clinical Impression: Ventral hernia Instructions: Hernia, Adult, [id number] Referrals: PCP,None [Primary Care Provider] - Forms: ED Department Discharge Additional Instructions: buy an abdominal binder or girdle for your abdominal wall and wear that and to you are ready to have the surgery. [facility] - Primary Care [address] [place] [id number] [facility] [address] [place] [address] [facility] [place] - General Surgery Professional Building [address] [facility], [address] [place] [address] The following information is given to patients seen in the emergency department who are being discharged to home. This information is to outline your options for follow-up care. We provide all patients seen in our emergency department with a follow-up referral. The need for follow-up, as well as the timing and circumstances, are variable depending upon the specifics of your emergency department visit. If you don't have a primary care physician on staff, we will provide you with a referral. We always advise you to contact your personal physician following an emergency department visit to inform them of the circumstance of the visit and for follow-up with them and/or the need for any referrals to a consulting specia list. The emergency department will also refer you to a specialist when appropriate. This referral assures that you have the opportunity for follow-up care with a specialist. All of these measure are taken in an effort to provide you with optimal care, which includes your follow-up. Under all circumstances we always encourage you to contact your private physician who remains a resource for coordinating your care. When calling for follow-up care, please make the office aware that this follow-up is from your recent emergency room visit. If for any reason you are refused follow-up, please contact the [facility] Emergency Department at and asked to speak to the emergency department charge nurse. Sepsis Event Note (ED) - Focused Exam Vital Signs: Vital Signs Temp Pulse Resp BP Pulse Ox 06/29/21 21:43 36.0 C L 89 18 142/71 H 97 - My Orders Last 24 Hours: My Active Orders 06/29/21 22:12 Sodium Chloride 0.9% [Saline Flush] 10 ml FLUSH ASDIRECTED PRN Sodium Chloride 0.9% [Saline Flush] 2.5 ml FLUSH ASDIRECTED PRN Saline Lock Insert [OM.PC] Stat - Assessment/Plan Last 24 Hours: My Active Orders 06/29/21 22:12 Sodium Chloride 0.9% [Saline Flush] 10 ml FLUSH ASDIRECTED PRN Sodium Chloride 0.9% [Saline Flush] 2.5 ml FLUSH ASDIRECTED PRN Saline Lock Insert [OM.PC] Stat
[2021-06-29 22:23] LABS: BLOOD UREA NITROGEN,BUN 18 mg/dL (7.0-18.0); CARBON DIOXIDE,CO2 33.7 mmol/L (21.0-32.0); CHLORIDE,CL 102 mmol/L (98-107); GLUCOSE RANDOM 76 mg/dL (74-106); POTASSIUM,K 4.7 mmol/L (3.5-5.1); SODIUM,NA 141 mmol/L (136-145)
--- NOTE | 2021-06-29 23:09 | CR ---
HISTORY: Shortness of breath. COMPARISON: Two previous films from 05/18/2021 FINDINGS: A portable erect AP view of the chest was obtained at 21 57 hours. During the interval, the previously seen nasogastric and endotracheal tubes have been removed. The previously seen mild linear infiltrates in the left mid and lower lung have cleared. This is consistent with clearing of atelectasis. There is continued mild prominence of interstitial pulmonary edema with mild vascular engorgement, consistent with mild congestive failure but similar in severity to the previous study. The heart remains mildly enlarged. There are sternal wires from median sternotomy. A valve prosthesis ring is again seen. The mediastinum is otherwise normal in appearance. Again seen is prominent superior subluxation of the humeral heads consistent with degeneration or disruption of the rotator cuff. The rest of the osseous structures are otherwise normal in appearance IMPRESSION: Findings of mild congestive failure similar to the previous study. Resolution of previously seen mild linear mid and lower lung infiltrates, consistent with clearing of atelectasis. Stable mild cardiomegaly. Dictated by Bo Richter MD @ 06/29/2021 11:08:[address] Bo Richter @ Jun 29 2021 11:08PM
[2021-06-30 00:07] VITALS: BP 100/60; PULSE 90
== END 2021-06-29 23:30 | disposition home or self-care (01) ==
LOC: MW.ED 21:41
DX: K43.9 Ventral hernia without obstruction or gangrene (principal); I48.91 Unspecified atrial fibrillation; I11.0 Hypertensive heart disease with heart failure; I50.9 Heart failure, unspecified; K21.9 Gastro-esophageal reflux disease without esophagitis; M19.90 Unspecified osteoarthritis, unspecified site; Z79.01 Long term (current) use of anticoagulants; Z79.899 Other long term (current) drug therapy
CPT/HCPCS: 36415; 71045; 71045-26; 80053; 83605; 83690; 84484; 85025; 85610; 93005; 99285-25

== ENCOUNTER 2021-09-19 03:57 | Inpatient (IN) | payer MEDICARE, OTHER ==
[2021-09-19] MEDS ORDERED: Diltiazem 25 MG/5 ML SDV IVPUSH ONE ×2 (04:13→06:23)
--- NOTE | 2021-09-19 04:13 | EDM.PDOC ---
<Sergey Ignacio - Last Filed: 09/19/21 06:23> ED HPI GENERAL MEDICAL PROBLEM - General Chief Complaint: Cardiovascular Problem Stated Complaint: AFIB Time Seen by Provider: 09/19/21 04:00 - History of Present Illness INITIAL COMMENTS - FREE TEXT/NARRATIVE: 71-year-old female history of hypertension A. fib mechanical heart valve CHF COPD presents complaining of shortness of breath that woke her up from sleep and heart rate in the 150s. Patient has intermittent bouts where her A. fib goes into rapid ventricular rates. Patient denies any fevers or cough or productive sputum. No chest pain. Patient has no recent vomiting or diarrhea or red or black stools. No pain with urination. No history of blood clots. No leg swelling. No recent travel or injury or cancer or surgery. Patient does have a history of thyroid problems. Patient is vaccinated against Covid. There are no known exacerbating relieving factors of these moderate symptoms - Related Data Allergies Allergy/AdvReac Type Severity Reaction Status Date / Time No Known Allergies Allergy Verified 09/19/21 04:00 Home Meds: Home Meds Methadone 10 mg PO TID PRN 01/12/18 [History] DULoxetine [Cymbalta] 60 mg PO DAILY 10/10/18 [History] Digoxin [Lanoxin] 62.5 mcg PO DAILY 11/08/18 [History] Levothyroxine 75 mcg PO ACBREAKFAST 11/08/18 [History] Lisinopril 2.5 mg PO BID 11/08/18 [History] carvediloL [Carvedilol] 12.5 mg PO BIDMEALS 11/08/18 [History] Bumetanide 2 mg PO DAILY 07/05/19 [History] Warfarin [Coumadin] 6 mg PO DAILY 14 Days #14 tab 07/12/19 [Rx] Diltiazem [Dilacor XR] 240 mg PO DAILY 08/03/19 [History] Iron 27 mg PO DAILY 08/03/19 [History] Omeprazole Magnesium [Prilosec Otc] 40 mg PO DAILY 08/03/19 [History] polyethylene glycoL 3350 [MiraLAX] 17 gm PO DAILY 03/26/20 [History] Albuterol Sulfate [Proventil Hfa] 1 - 2 puff INH ASDIRECTED PRN 05/19/20 [History] Albuterol [Proventil Neb Soln] 3 ml INH ASDIRECTED PRN 05/19/20 [History] Calcium Carb, Citrate/Vit D3 [Citracal + D ER] 1 each PO DAILY 05/19/20 [History] Non-Formulary Medication [NF Drug] 1 each 05/19/20 [History] diphenhydrAMINE [Benadryl] 50 mg PO BEDTIME 05/19/20 [History] oxyCODONE 5 mg PO Q6HR 05/19/20 [History] Past Medical History HEENT History: Reports: Impaired Vision, Other (See Below) Other HEENT History: no teeth or dentures Cardiovascular History: Reports: Afib, Cardiomyopathy, Heart Failure, Heart Valve Replacement, Hypertension Other Cardiovascular History: mitral valve regurgitation Respiratory History: Reports: SOB Gastrointestinal History: Reports: GERD Other Gastrointestinal History: acid reflux Genitourinary History: Reports: None CHIEF MINISTER History: Reports: Other CHIEF MINISTER History: pessery Musculoskeletal History: Reports: Arthritis, Back Pain, Chronic, Other (See Below) Other Musculoskeletal History: scoliosis, bulging discs, carpal tunnel, restless leg Neurological History: Reports: TIA Psychiatric History: Reports: Anxiety, Depression Endocrine/Metabolic History: Reports: None Insulin Pump Model and Belt Weaver: None Hematologic History: Reports: Anticoagulation Therapy Immunologic History: Reports: None Oncologic (Cancer) History: Reports: Breast Other Oncologic History: right breast ca Dermatologic History: Reports: None Other Dermatologic History: dry skin - Infectious Disease History Infectious Disease History: Reports: None Other Infectious Disease History: patient is unsure - Past Surgical History Head Surgeries/Procedures: Reports: None HEENT Surgical History: Reports: None Cardiovascular Surgical History: Reports: Valve Replacement Other Cardiovascular Surgeries/Procedures: mechanical aortic valve 2000 Respiratory Surgical History: Reports: None GI Surgical History: Reports: Appendectomy, Bariatric Procedure, Cholecystectomy, Colonoscopy, Other (See Below) Other GI Surgeries/Procedures: gastric bypass Female Surgical History: Reports: Tubal Ligation, Other (See Below) Other Female Surgeries/Procedures: right breast lumpectomy Endocrine Surgical History: Reports: None Neurological Surgical History: Reports: None Musculoskeletal Surgical History: Reports: Carpal Tunnel, Other (See Below) Other Musculoskeletal Surgeries/Procedures:: right arm -carpal tunnel Oncologic Surgical History: Reports: Lumpectomy Dermatological Surgical History: Reports: None Social & Family History - Family History Family Medical History: No Pertinent Family History - Caffeine Use Caffeine Use: Reports: None Caffeine Use Comment: 3-4 cups a day - Living Situation & Occupation Living situation: Reports: , with Family Occupation: Retired ED ROS GENERAL - Review of Systems Review Of Systems: Comprehensive ROS is negative, except as noted in HPI. ED EXAM, GENERAL - Physical Exam Exam: See Below Free Text/Narrative:: CONSTITUTIONAL: well appearing in no acute distress SKIN: Warm, dry, and intact without rash HENT: Normocephalic, atraumatic, PULMONARY: clear to ausculation bilaterally. No rales, rhonchi, wheezing CARDIOVASCULAR: Irregular rate and rhythm. Tachycardia GASTROINTESTINAL: Soft. Diffuse mild tenderness without rebound or rigidity. guiac neg brown stool NEUROLOGIC: normal speech, II-XII intact. Sensorimotor function grossly intact MUSCULOSKELETAL: no gross deformities, atraumatic PSYCHIATRIC: normal mood and affect #1 Interpretation Time: 04:11 EKG Interpretation Comments: 131 A. fib with rapid ventricular rates. Intermittent PVC Course - Vital Signs Text/Narrative:: Differential diagnosis: A. fib RVR, CHF, thyroid disease, PE, infection, A. fib RVR for medication compliance, pneumonia, other Patient presents with shortness of breath she is found to be in A. fib with RVR. There is some component of CHF and pulmonary edema. Patient given diltiazem for rate control. In addition digoxin level is somewhat low so additional digoxin given. Patient has some slight interval anemia but guaiac-negative stool from below. CT scan pending to rule out infection. Patient will likely need dilt drip for rate control. CHANTELLE Paul 7:45am Critical care: I spent 45 minutes of critical care time with this patient not including reportable procedures. There was an acute impairment of an organ system with a high probability of imminent or life threatening deterioration in the patient`s condition. Interventions and changes required in the course of therapy are located in the chart. Time involved was spent in direct patient care, reviewing ancillary data, old records, consulting with decision makers, EMS, other doctors, giving orders and documenting. Departure - Departure Disposition: Admitted As Inpatient 66 Condition: Good Clinical Impression: CHF (congestive heart failure), Atrial fibrillation with RVR, Fluid overload Afib Qualifiers: Atrial fibrillation type: paroxysmal Qualified Code(s): I48.0 - Paroxysmal atrial fibrillation Referrals: Jonathan Sultana MD [Primary Care Provider] - Forms: ED Department Discharge <Mathew Paul - Last Filed: 09/19/21 07:52> Course - Vital Signs Last Recorded V/S: Last Vital Signs Temp 99.2 F 09/19/21 04:01 Pulse 102 H 09/19/21 06:29 Resp 20 09/19/21 06:29 BP 95/49 L 09/19/21 06:29 Pulse Ox 96 09/19/21 06:29 - Orders/Labs/Meds Orders: Active Orders 24 hr Category Date Time Status Digoxin [Lanoxin] Med 09/19/21 05:15 Active 125 mcg IVPUSH DAILY Medication Orders Digoxin (Digoxin 500 Mcg/2 Ml Amp) 125 mcg IVPUSH DAILY CALIXTO Last Admin: 09/19/21 05:21 Dose: 125 mcg Documented by: MOSHE Labs: Laboratory Tests 09/19/21 09/19/21 09/19/21 Range/Units 04:15 04:15 04:15 WBC 11.04 H (4.0-11.0) K/uL RBC 3.97 L (4.30-5.90) M/uL Hgb 9.8 L (12.0-16.0) g/dL Hct 32.4 L (36.0-46.0) % MCV 81.6 (80.0-98.0) fL MCH 24.7 L (27.0-32.0) pg MCHC 30.2 L (31.0-37.0) g/dL RDW Std Deviation 44.3 (28.0-62.0) fl RDW Coeff of Shaun 15 (11.0-15.0) % Plt Count 241 (150-400) K/uL MPV 9.50 (7.40-12.00) fL Neut % (Auto) 85.9 H (48.0-80.0) % Lymph % (Auto) 5.6 L (16.0-40.0) % [place] % (Auto) 7.8 (0.0-15.0) % Eos % (Auto) 0.5 (0.0-7.0) % Baso % (Auto) 0.2 (0.0-1.5) % Neut # (Auto) 9.5 H (1.4-5.7) K/uL Lymph # (Auto) 0.6 (0.6-2.4) K/uL [place] # (Auto) 0.9 H (0.0-0.8) K/uL Eos # (Auto) 0.1 (0.0-0.7) K/uL Baso # (Auto) 0.0 (0.0-0.1) K/uL Nucleated RBC % 0.0 /100WBC Nucleated RBCs # 0 K/uL INR 3.24 Sodium 139 (136-145) mmol/L Potassium 4.1 (3.5-5.1) mmol/L Chloride 101 (98-107) mmol/L Carbon Dioxide 30.7 (21.0-32.0) mmol/L BUN 29 H (7.0-18.0) mg/dL Creatinine 1.3 H (0.6-1.0) mg/dL Est Cr Clr Drug Dosing 28.51 mL/min Estimated GFR (MDRD) 40.4 ml/min Glucose 141 H (74-106) mg/dL Lactic Acid (0.4-2.0) mmol/L Calcium 8.9 (8.5-10.1) mg/dL Total Bilirubin 0.7 (0.2-1.0) mg/dL AST 159 H (15-37) IU/L ALT 91 H (14-63) IU/L Alkaline Phosphatase 145 H (46-116) U/L Troponin I < 0.050 (0.000-0.056) ng/mL B-Natriuretic Peptide (<100) PG/ML Total Protein 7.6 (6.4-8.2) g/dL Albumin 3.4 (3.4-5.0) g/dL Globulin 4.2 H (2.6-4.0) g/dL Albumin/Globulin Ratio 0.8 L (0.9-1.6) Lipase 150 (73-393) U/L TSH, Ultra Sensitive 0.74 (0.36-3.74) uIU/mL Urine Color Urine Appearance Urine pH (5.0-8.0) Ur Specific [place] (1.001-1.035) Urine Protein (NEGATIVE) mg/dL Urine Glucose (UA) (NEGATIVE) mg/dL Urine Ketones (NEGATIVE) mg/dL Urine Occult Blood (NEGATIVE) Urine Nitrite (NEGATIVE) Urine Bilirubin (NEGATIVE) Urine Urobilinogen (<2.0) EU/dL Ur Leukocyte Esterase (NEGATIVE) Urine RBC (0-2/HPF) Urine WBC (0-5/HPF) Ur Epithelial Cells (NONE-FEW) Calcium Oxalate Crystal (NEGATIVE) Urine Bacteria (NEGATIVE) Digoxin 0.6 L (0.9-2.0) ng/mL SARS-CoV-2 RNA (RL) (NEGATIVE) 09/19/21 09/19/21 09/19/21 Range/Units 04:15 04:26 04:35 WBC (4.0-11.0) K/uL RBC (4.30-5.90) M/uL Hgb (12.0-16.0) g/dL Hct (36.0-46.0) % MCV (80.0-98.0) fL MCH (27.0-32.0) pg MCHC (31.0-37.0) g/dL RDW Std Deviation (28.0-62.0) fl RDW Coeff of Shaun (11.0-15.0) % Plt Count (150-400) K/uL MPV (7.40-12.00) fL Neut % (Auto) (48.0-80.0) % Lymph % (Auto) (16.0-40.0) % [place] % (Auto) (0.0-15.0) % Eos % (Auto) (0.0-7.0) % Baso % (Auto) (0.0-1.5) % Neut # (Auto) (1.4-5.7) K/uL Lymph # (Auto) (0.6-2.4) K/uL [place] # (Auto) (0.0-0.8) K/uL Eos # (Auto) (0.0-0.7) K/uL Baso # (Auto) (0.0-0.1) K/uL Nucleated RBC % /100WBC Nucleated RBCs # K/uL INR Sodium (136-145) mmol/L Potassium (3.5-5.1) mmol/L Chloride (98-107) mmol/L Carbon Dioxide (21.0-32.0) mmol/L BUN (7.0-18.0) mg/dL Creatinine (0.6-1.0) mg/dL Est Cr Clr Drug Dosing mL/min Estimated GFR (MDRD) ml/min Glucose (74-106) mg/dL Lactic Acid 1.9 (0.4-2.0) mmol/L Calcium (8.5-10.1) mg/dL Total Bilirubin (0.2-1.0) mg/dL AST (15-37) IU/L ALT (14-63) IU/L Alkaline Phosphatase (46-116) U/L Troponin I (0.000-0.056) ng/mL B-Natriuretic Peptide 586 H (<100) PG/ML Total Protein (6.4-8.2) g/dL Albumin (3.4-5.0) g/dL Globulin (2.6-4.0) g/dL Albumin/Globulin Ratio (0.9-1.6) Lipase (73-393) U/L TSH, Ultra Sensitive (0.36-3.74) uIU/mL Urine Color Urine Appearance Urine pH (5.0-8.0) Ur Specific [place] (1.001-1.035) Urine Protein (NEGATIVE) mg/dL Urine Glucose (UA) (NEGATIVE) mg/dL Urine Ketones (NEGATIVE) mg/dL Urine Occult Blood (NEGATIVE) Urine Nitrite (NEGATIVE) Urine Bilirubin (NEGATIVE) Urine Urobilinogen (<2.0) EU/dL Ur Leukocyte Esterase (NEGATIVE) Urine RBC (0-2/HPF) Urine WBC (0-5/HPF) Ur Epithelial Cells (NONE-FEW) Calcium Oxalate Crystal (NEGATIVE) Urine Bacteria (NEGATIVE) Digoxin (0.9-2.0) ng/mL SARS-CoV-2 RNA (RL) NEGATIVE (NEGATIVE) 09/19/21 Range/Units 05:30 WBC (4.0-11.0) K/uL RBC (4.30-5.90) M/uL Hgb (12.0-16.0) g/dL Hct (36.0-46.0) % MCV (80.0-98.0) fL MCH (27.0-32.0) pg MCHC (31.0-37.0) g/dL RDW Std Deviation (28.0-62.0) fl RDW Coeff of Shaun (11.0-15.0) % Plt Count (150-400) K/uL MPV (7.40-12.00) fL Neut % (Auto) (48.0-80.0) % Lymph % (Auto) (16.0-40.0) % [place] % (Auto) (0.0-15.0) % Eos % (Auto) (0.0-7.0) % Baso % (Auto) (0.0-1.5) % Neut # (Auto) (1.4-5.7) K/uL Lymph # (Auto) (0.6-2.4) K/uL [place] # (Auto) (0.0-0.8) K/uL Eos # (Auto) (0.0-0.7) K/uL Baso # (Auto) (0.0-0.1) K/uL Nucleated RBC % /100WBC Nucleated RBCs # K/uL INR Sodium (136-145) mmol/L Potassium (3.5-5.1) mmol/L Chloride (98-107) mmol/L Carbon Dioxide (21.0-32.0) mmol/L BUN (7.0-18.0) mg/dL Creatinine (0.6-1.0) mg/dL Est Cr Clr Drug Dosing mL/min Estimated GFR (MDRD) ml/min Glucose (74-106) mg/dL Lactic Acid (0.4-2.0) mmol/L Calcium (8.5-10.1) mg/dL Total Bilirubin (0.2-1.0) mg/dL AST (15-37) IU/L ALT (14-63) IU/L Alkaline Phosphatase (46-116) U/L Troponin I (0.000-0.056) ng/mL B-Natriuretic Peptide (<100) PG/ML Total Protein (6.4-8.2) g/dL Albumin (3.4-5.0) g/dL Globulin (2.6-4.0) g/dL Albumin/Globulin Ratio (0.9-1.6) Lipase (73-393) U/L TSH, Ultra Sensitive (0.36-3.74) uIU/mL Urine Color YELLOW Urine Appearance CLEAR Urine pH 6.0 (5.0-8.0) Ur Specific [place] 1.015 (1.001-1.035) Urine Protein NEGATIVE (NEGATIVE) mg/dL Urine Glucose (UA) NEGATIVE (NEGATIVE) mg/dL Urine Ketones NEGATIVE (NEGATIVE) mg/dL Urine Occult Blood TRACE-INTACT H (NEGATIVE) Urine Nitrite NEGATIVE (NEGATIVE) Urine Bilirubin NEGATIVE (NEGATIVE) Urine Urobilinogen 2.0 H (<2.0) EU/dL Ur Leukocyte Esterase SMALL H (NEGATIVE) Urine RBC 1-4 (0-2/HPF) Urine WBC 3-6 (0-5/HPF) Ur Epithelial Cells FEW (NONE-FEW) Calcium Oxalate Crystal FEW (NEGATIVE) Urine Bacteria FEW (NEGATIVE) Digoxin (0.9-2.0) ng/mL SARS-CoV-2 RNA (RL) (NEGATIVE) Meds: Medications Generic Name Dose Route Start Last Admin Trade Name Freq PRN Reason Stop Dose Admin Digoxin 125 mcg 09/19/21 05:15 09/19/21 05:21 Digoxin 500 Mcg/2 Ml Amp IVPUSH 125 mcg DAILY CALIXTO Administration Discontinued Medications Generic Name Dose Route Start Last Admin Trade Name Alecq PRN Reason Stop Dose Admin Diltiazem HCl 10 mg 09/19/21 04:13 09/19/21 04:20 Diltiazem 25 Mg/5 Ml Sdv IVPUSH 09/19/21 04:14 10 mg ONETIME ONE Administration Diltiazem HCl 10 mg 09/19/21 06:23 09/19/21 06:27 Diltiazem 25 Mg/5 Ml Sdv IVPUSH 09/19/21 06:24 10 mg ONETIME ONE Administration Furosemide 20 mg 09/19/21 06:35 09/19/21 06:39 Furosemide 40 Mg/4 Ml Vial IVPUSH 09/19/21 06:36 20 mg NOW ONE Administration Iopamidol 100 ml 09/19/21 05:27 09/19/21 05:40 Iopamidol 755 Mg/Ml 500 Ml Multipack Bottle IVPUSH 09/19/21 05:28 75 ml ONETIME ONE Administration Departure - Departure Time of Disposition: 07:52 Condition: Good Sepsis Event Note (ED) - Focused Exam Vital Signs: Vital Signs Temp Pulse Pulse Resp BP Pulse Ox 09/19/21 06:29 102 H 20 95/49 L 96 09/19/21 06:05 118 H 20 142/80 H 97 09/19/21 05:25 116 H 19 116/63 97 09/19/21 05:21 144 H 09/19/21 04:50 116 H 19 104/53 L 96 09/19/21 04:32 102 H 19 96 09/19/21 04:24 115 H 19 101/52 L 96 09/19/21 04:01 99.2 F 142 H 20 129/65 97 - Assessment/Plan Assessment:: Patient received in signout from Dr. Ignacio at 6:30 AM. Labs notable for mild leukocytosis very minimal transaminitis as well. Patient received a second 10 mg IV push of diltiazem shortly prior to my arrival she is currently rate controlled. Will reassess her heart rate at around 7:20 to see if she may need a diltiazem drip. Is possible that the additional digoxin may give the rate control we require. Her CT scan shows some fecal stasis in the proximal colon which may explain her abdominal tenderness. She does have significant biliary ductal dilatation. However it is stable from prior scans. There is not a new obstructive pattern on the scan that would suggest cholangitis. The patient also has no fever and no right upper quadrant pain. Given this I think cholangitis is unlikely to be present at this time. Dr. Ignacio spoke to Dr. Quinn prior to my arrival. If patient remains rate controlled at 7:20 then can consider floor bed and will discuss again with Dr. Quinn. Otherwise will add dilt gtt and place ICU order per Dr. Ignacio's signout. 0750: Patient remains rate controlled at this time with heart rate in the 80s to 90s with occasional bumps into the low 100s. Patient does not require diltiazem infusion at this time. Dr. Quinn updated and will place order for telemetry.
[2021-09-19 04:58] LABS: BLOOD UREA NITROGEN,BUN 29 mg/dL (7.0-18.0); CARBON DIOXIDE,CO2 30.7 mmol/L (21.0-32.0); CHLORIDE,CL 101 mmol/L (98-107); GLUCOSE RANDOM 141 mg/dL (74-106); LIPASE 150 U/L (73-393); POTASSIUM,K 4.1 mmol/L (3.5-5.1); SODIUM,NA 139 mmol/L (136-145)
--- NOTE | 2021-09-19 05:12 | CR ---
HISTORY: Chest pain. COMPARISON: 06/29/2021. TECHNIQUE: Chest one-view portable. FINDINGS: Median sternotomy changes. AVR. Cardiomegaly. Interstitial pulmonary edema. No focal consolidation or pneumothorax. Central airway is normal. Bowel gas pattern is normal in the upper abdomen. Surgical clips in the right chest wall. IMPRESSION: Cardiomegaly with interstitial pulmonary edema. Dictated by Tian Meng MD @ 09/19/2021 5:10:46 AM (Electronically Signed)
[2021-09-19] MEDS: Digoxin 500 MCG/2 ML Amp IVPUSH SCH ×2 (05:21→09:17)
[2021-09-19] MEDS ORDERED: Iopamidol 755 MG/ML 500 ML Multipack Bottle IVPUSH ONE (05:27)
--- NOTE | 2021-09-19 06:26 | CT ---
INDICATION: Abdominal pain. COMPARISON: 05/19/2020 TECHNIQUE: CT examination of the abdomen and pelvis was performed with the uneventful intravenous administration of 75 cc of Isovue 370 while 2.5 mm thick axial sections were obtained from the lung bases through the pubic symphysis. Oral contrast was not administered. Please note that all CT scans at this facility use dose modulation, iterative reconstruction, and/or weight-based dosing when appropriate to reduce radiation dose to as low as reasonably achievable. FINDINGS: There is new moderate amount of fecal material in the proximal colon, with relatively little fecal material in the sigmoid colon and rectum. The findings are that of fecal stasis. In the abdomen, the liver is seen to have stable moderate intrahepatic ductal dilatation. This is associated with stable prominent dilatation of the common bile duct to 16 mm and surgical clips from cholecystectomy. The findings are consistent with post-cholecystectomy status. The liver is otherwise normal in appearance. The spleen and pancreas are normal in appearance. There is a 2.1 x 1.5 centimeter left adrenal mass. 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 The right adrenal mass has slightly decreased in size, measuring 3.1 x 2.5 centimeters, previously 3.5 x 2.5 centimeters. The density is 37 Hounsfield units, nonspecific. There is a mild amount of contrast excreted into the collecting systems of both kidneys, obscuring the previously seen calculi in the lower poles of the collecting systems. There are small cysts along the lateral aspect of the interpolar right kidney. A small cyst is seen in the anterior interpolar right kidney. Small cysts are seen in the lower pole of the left kidney. The gallbladder is normal in appearance. The abdominal aorta is normal in caliber with no sign of dilatation. There is no sign of retroperitoneal mass or adenopathy. Again are several lines of surgical [place] in the gastric fundus consistent with gastric bypass surgery. A small bowl anastamosis is again seen in the left upper quadrant with no sign of stricture. The distal stomach, the rest of the loops of small bowel, and colon in the abdomen are normal in appearance. There is a moderate sized fat containing right periumbilical hernia. In the pelvis, the appendix is nonvisualized, but there is no sign of an inflammatory process in the area of the appendix. The loops of small bowel and colon in the pelvis are normal in appearance. The uterus and adnexal regions are normal in appearance. A pessary is again seen at the cervix. The urinary bladder is normal in appearance. There is no sign of pelvic or inguinal mass or adenopathy. There is no sign of free air or free fluid in the abdomen or pelvis. There is new mild patchy interstitial infiltrate throughout both lower lobes, atelectasis versus an atypical pneumonia. There is no change in mild cardiomegaly. There is stable heavy calcification of the mitral valve annulus. There is stable moderate scoliosis of the lumbar spine convex towards the left. There is no change in severe disc degenerative disease from L2 through L5. There is mild primary osteoarthritis of the left sacroiliac joint. IMPRESSION: Moderate amount of fecal material in the proximal colon consistent with fecal stasis. Nothing else seen to explain the patient`s abdominal pain. No sign of bowel obstruction or ileus. CT of the abdomen shows stable appearance status post gastric bypass surgery. Stable severe dilatation of the common bile duct and moderate dilatation of the intrahepatic biliary ductal system consistent with cholecystectomy. Bilateral adrenal nodules, nonspecific. CT of the pelvis shows stable moderate fat containing periumbilical hernia. Pessary again seen adjacent to the cervix. New mild patchy density scattered throughout the lung bases. Please note that all CT scans at this facility use dose modulation, iterative reconstruction, and/or weight-based dosing when appropriate to reduce radiation dose to as low as reasonably achievable. Dictated by Bo Richter MD @ 09/19/2021 6:25:24 AM (Electronically Signed)
[2021-09-19] MEDS ORDERED: Furosemide 40 MG/4 ML VIAL IVPUSH ONE (06:35)
[2021-09-19] MEDS ORDERED: Albuterol 8 GM Inhaler INH PRN (14:10)
[2021-09-19] MEDS ORDERED: Non-Formulary Medication 1 Each (Warfarin 3 MG Tablet) PO SCH (14:15)
--- NOTE | 2021-09-19 14:29 | PCM.HP.2 ---
H&P History of Present Illness - General Date of Service: 09/19/21 Admit Problem/Dx: Admission Diagnosis/Problem Admission Diagnosis/Problem Atrial fibrillation with rapid ventricular response - History of Present Illness Initial Comments - Free Text/Narative: 71 yo female with pmh of hypertension A. fib mechanical heart valve, CHF, COPD who woke up a night with shortness of breath and heart palpitations. Patient reported abdominal discomfort and nausea. In the ED she was noted to have atrial fibrillation with rapid heart rate. CXR reported cardiomegaly with interstitial pulmonary edema. CT abdomen reported moderate amount of fecal material in the colon. Bilateral Shoulder Pain Score (Numeric/FACES): 9 - Related Data Allergies/Adverse Reactions: Allergies Allergy/AdvReac Type Severity Reaction Status Date / Time No Known Allergies Allergy Verified 09/19/21 10:20 Home Medications: Home Meds Methadone 10 mg PO TID PRN 01/12/18 [History] Digoxin [Lanoxin] 62.5 mcg PO DAILY 11/08/18 [History] Lisinopril 5 mg PO BID 11/08/18 [History] carvediloL [Carvedilol] 18.75 mg PO BIDMEALS 11/08/18 [History] Bumetanide 2 mg PO DAILY 07/05/19 [History] Diltiazem [Dilacor XR] 240 mg PO DAILY 08/03/19 [History] Iron 27 mg PO DAILY 08/03/19 [History] Omeprazole Magnesium [Prilosec Otc] 40 mg PO ACBREAKFAST 08/03/19 [History] polyethylene glycoL 3350 [MiraLAX] 17 gm PO DAILY 03/26/20 [History] Albuterol [Proventil Neb Soln] 3 ml INH ASDIRECTED PRN 05/19/20 [History] Calcium Carb, Citrate/Vit D3 [Citracal + D ER] 1 each PO DAILY 05/19/20 [History] Non-Formulary Medication [NF Drug] 1 each 05/19/20 [History] diphenhydrAMINE [Benadryl] 50 mg PO BEDTIME 05/19/20 [History] oxyCODONE 5 mg PO Q6HR 05/19/20 [History] Albuterol [Ventolin HFA] 2 puff INH Q6HRRT PRN 09/19/21 [History] DULoxetine [Cymbalta] 60 mg PO DAILY 09/19/21 [History] Levothyroxine 75 mg PO ACBREAKFAST 09/19/21 [History] Methadone 2.5 mg PO DAILY PRN 09/19/21 [History] Warfarin [Coumadin] 0 mg PO ASDIRECTED 09/19/21 [History] Past Medical History HEENT History: Reports: Impaired Vision, Other (See Below) Other HEENT History: no teeth or dentures Cardiovascular History: Reports: Afib, Cardiomyopathy, Heart Failure, Heart Valve Replacement, Hypertension Other Cardiovascular History: mitral valve regurgitation Respiratory History: Reports: SOB Other Respiratory History: oxygen 2L at home only in the evening and when ambula ting Gastrointestinal History: Reports: GERD, Other (See Below) Other Gastrointestinal History: acid reflux, hernia to umbilicus Genitourinary History: Reports: None AEROSPACE TECHNICIAN History: Reports: Other OB/BYN History: pessery Musculoskeletal History: Reports: Arthritis, Back Pain, Chronic, Other (See Below) Other Musculoskeletal History: scoliosis, bulging discs, carpal tunnel, restless leg Neurological History: Reports: TIA Psychiatric History: Reports: Anxiety, Depression Endocrine/Metabolic History: Reports: Hypothyroidism Insulin Pump Model and Senior Software Quality Analyst: None Hematologic History: Reports: Anticoagulation Therapy Immunologic History: Reports: None Oncologic (Cancer) History: Reports: Breast Other Oncologic History: right breast lump Dermatologic History: Reports: None Other Dermatologic History: dry skin - Infectious Disease History Infectious Disease History: Reports: None Other Infectious Disease History: patient is unsure - Past Surgical History Head Surgeries/Procedures: Reports: None HEENT Surgical History: Reports: None Cardiovascular Surgical History: Reports: Valve Replacement Other Cardiovascular Surgeries/Procedures: mechanical aortic valve 2000 Respiratory Surgical History: Reports: None GI Surgical History: Reports: Appendectomy, Bariatric Procedure, Cholecystectomy, Colonoscopy, Other (See Below) Other GI Surgeries/Procedures: gastric bypass Female Surgical History: Reports: Tubal Ligation, Other (See Below) Other Female Surgeries/Procedures: right breast lumpectomy Endocrine Surgical History: Reports: None Neurological Surgical History: Reports: None Musculoskeletal Surgical History: Reports: Carpal Tunnel, Other (See Below) Other Musculoskeletal Surgeries/Procedures:: right arm -carpal tunnel Oncologic Surgical History: Reports: Lumpectomy Dermatological Surgical History: Reports: None Social & Family History - Family History Family Medical History: No Pertinent Family History - Tobacco Use Tobacco Use Status *Q: Current Every Day Tobacco User Years of Tobacco use: 40 Packs/Tins Daily: 0.2 - Caffeine Use Caffeine Use: Reports: Coffee, Tea Caffeine Use Comment: 3-4 cups a day - Recreational Drug Use Recreational Drug Use: No - Living Situation & Occupation Living situation: Reports: , with Family Occupation: Retired H&P Review of Systems - Review of Systems: Review Of Systems: Comprehensive ROS is negative, except as noted in HPI. Exam - Exam Exam: See Below - Vital Signs Vital Signs: Last Vital Signs Temp 36.2 C 09/19/21 10:00 Pulse 84 09/19/21 10:00 Resp 18 09/19/21 10:00 BP 125/63 09/19/21 10:00 Pulse Ox 95 09/19/21 10:00 Weight: 68.6 kg - Exam General: Alert, Oriented HEENT: Mucosa Moist & [place] Lungs: Clear to Auscultation, Normal Respiratory Effort Cardiovascular: Regular Rate, Irregular Rhythm GI/Abdominal Exam: Soft, Non-Tender, No Distention Extremities: Non-Tender, No Pedal Edema Skin: Warm, Dry, Intact Neurological: No: Focal Deficit - Patient Data Lab Results Last 24 hrs: Laboratory Results - last 24 hr 09/19/21 09/19/21 09/19/21 Range/Units 04:15 04:15 04:15 WBC 11.04 H (4.0-11.0) K/uL RBC 3.97 L (4.30-5.90) M/uL Hgb 9.8 L (12.0-16.0) g/dL Hct 32.4 L (36.0-46.0) % MCV 81.6 (80.0-98.0) fL MCH 24.7 L (27.0-32.0) pg MCHC 30.2 L (31.0-37.0) g/dL RDW Std Deviation 44.3 (28.0-62.0) fl RDW Coeff of Shaun 15 (11.0-15.0) % Plt Count 241 (150-400) K/uL MPV 9.50 (7.40-12.00) fL Neut % (Auto) 85.9 H (48.0-80.0) % Lymph % (Auto) 5.6 L (16.0-40.0) % [place] % (Auto) 7.8 (0.0-15.0) % Eos % (Auto) 0.5 (0.0-7.0) % Baso % (Auto) 0.2 (0.0-1.5) % Neut # (Auto) 9.5 H (1.4-5.7) K/uL Lymph # (Auto) 0.6 (0.6-2.4) K/uL [place] # (Auto) 0.9 H (0.0-0.8) K/uL Eos # (Auto) 0.1 (0.0-0.7) K/uL Baso # (Auto) 0.0 (0.0-0.1) K/uL Nucleated RBC % 0.0 /100WBC Nucleated RBCs # 0 K/uL INR 3.24 Sodium 139 (136-145) mmol/L Potassium 4.1 (3.5-5.1) mmol/L Chloride 101 (98-107) mmol/L Carbon Dioxide 30.7 (21.0-32.0) mmol/L BUN 29 H (7.0-18.0) mg/dL Creatinine 1.3 H (0.6-1.0) mg/dL Est Cr Clr Drug Dosing 28.51 mL/min Estimated GFR (MDRD) 40.4 ml/min Glucose 141 H (74-106) mg/dL Lactic Acid (0.4-2.0) mmol/L Calcium 8.9 (8.5-10.1) mg/dL Total Bilirubin 0.7 (0.2-1.0) mg/dL AST 159 H (15-37) IU/L ALT 91 H (14-63) IU/L Alkaline Phosphatase 145 H (46-116) U/L Troponin I < 0.050 (0.000-0.056) ng/mL B-Natriuretic Peptide (<100) PG/ML Total Protein 7.6 (6.4-8.2) g/dL Albumin 3.4 (3.4-5.0) g/dL Globulin 4.2 H (2.6-4.0) g/dL Albumin/Globulin Ratio 0.8 L (0.9-1.6) Lipase 150 (73-393) U/L TSH, Ultra Sensitive 0.74 (0.36-3.74) uIU/mL Urine Color Urine Appearance Urine pH (5.0-8.0) Ur Specific Mason (1.001-1.035) Urine Protein (NEGATIVE) mg/dL Urine Glucose (UA) (NEGATIVE) mg/dL Urine Ketones (NEGATIVE) mg/dL Urine Occult Blood (NEGATIVE) Urine Nitrite (NEGATIVE) Urine Bilirubin (NEGATIVE) Urine Urobilinogen (<2.0) EU/dL Ur Leukocyte Esterase (NEGATIVE) Urine RBC (0-2/HPF) Urine WBC (0-5/HPF) Ur Epithelial Cells (NONE-FEW) Calcium Oxalate Crystal (NEGATIVE) Urine Bacteria (NEGATIVE) Digoxin 0.6 L (0.9-2.0) ng/mL SARS-CoV-2 RNA (RL) (NEGATIVE) 09/19/21 09/19/21 09/19/21 Range/Units 04:15 04:26 04:35 WBC (4.0-11.0) K/uL RBC (4.30-5.90) M/uL Hgb (12.0-16.0) g/dL Hct (36.0-46.0) % MCV (80.0-98.0) fL MCH (27.0-32.0) pg MCHC (31.0-37.0) g/dL RDW Std Deviation (28.0-62.0) fl RDW Coeff of Shaun (11.0-15.0) % Plt Count (150-400) K/uL MPV (7.40-12.00) fL Neut % (Auto) (48.0-80.0) % Lymph % (Auto) (16.0-40.0) % [place] % (Auto) (0.0-15.0) % Eos % (Auto) (0.0-7.0) % Baso % (Auto) (0.0-1.5) % Neut # (Auto) (1.4-5.7) K/uL Lymph # (Auto) (0.6-2.4) K/uL [place] # (Auto) (0.0-0.8) K/uL Eos # (Auto) (0.0-0.7) K/uL Baso # (Auto) (0.0-0.1) K/uL Nucleated RBC % /100WBC Nucleated RBCs # K/uL INR Sodium (136-145) mmol/L Potassium (3.5-5.1) mmol/L Chloride (98-107) mmol/L Carbon Dioxide (21.0-32.0) mmol/L BUN (7.0-18.0) mg/dL Creatinine (0.6-1.0) mg/dL Est Cr Clr Drug Dosing mL/min Estimated GFR (MDRD) ml/min Glucose (74-106) mg/dL Lactic Acid 1.9 (0.4-2.0) mmol/L Calcium (8.5-10.1) mg/dL Total Bilirubin (0.2-1.0) mg/dL AST (15-37) IU/L ALT (14-63) IU/L Alkaline Phosphatase (46-116) U/L Troponin I (0.000-0.056) ng/mL B-Natriuretic Peptide 586 H (<100) PG/ML Total Protein (6.4-8.2) g/dL Albumin (3.4-5.0) g/dL Globulin (2.6-4.0) g/dL Albumin/Globulin Ratio (0.9-1.6) Lipase (73-393) U/L TSH, Ultra Sensitive (0.36-3.74) uIU/mL Urine Color Urine Appearance Urine pH (5.0-8.0) Ur Specific Mason (1.001-1.035) Urine Protein (NEGATIVE) mg/dL Urine Glucose (UA) (NEGATIVE) mg/dL Urine Ketones (NEGATIVE) mg/dL Urine Occult Blood (NEGATIVE) Urine Nitrite (NEGATIVE) Urine Bilirubin (NEGATIVE) Urine Urobilinogen (<2.0) EU/dL Ur Leukocyte Esterase (NEGATIVE) Urine RBC (0-2/HPF) Urine WBC (0-5/HPF) Ur Epithelial Cells (NONE-FEW) Calcium Oxalate Crystal (NEGATIVE) Urine Bacteria (NEGATIVE) Digoxin (0.9-2.0) ng/mL SARS-CoV-2 RNA (RL) NEGATIVE (NEGATIVE) 09/19/21 Range/Units 05:30 WBC (4.0-11.0) K/uL RBC (4.30-5.90) M/uL Hgb (12.0-16.0) g/dL Hct (36.0-46.0) % MCV (80.0-98.0) fL MCH (27.0-32.0) pg MCHC (31.0-37.0) g/dL RDW Std Deviation (28.0-62.0) fl RDW Coeff of Shaun (11.0-15.0) % Plt Count (150-400) K/uL MPV (7.40-12.00) fL Neut % (Auto) (48.0-80.0) % Lymph % (Auto) (16.0-40.0) % [place] % (Auto) (0.0-15.0) % Eos % (Auto) (0.0-7.0) % Baso % (Auto) (0.0-1.5) % Neut # (Auto) (1.4-5.7) K/uL Lymph # (Auto) (0.6-2.4) K/uL [place] # (Auto) (0.0-0.8) K/uL Eos # (Auto) (0.0-0.7) K/uL Baso # (Auto) (0.0-0.1) K/uL Nucleated RBC % /100WBC Nucleated RBCs # K/uL INR Sodium (136-145) mmol/L Potassium (3.5-5.1) mmol/L Chloride (98-107) mmol/L Carbon Dioxide (21.0-32.0) mmol/L BUN (7.0-18.0) mg/dL Creatinine (0.6-1.0) mg/dL Est Cr Clr Drug Dosing mL/min Estimated GFR (MDRD) ml/min Glucose (74-106) mg/dL Lactic Acid (0.4-2.0) mmol/L Calcium (8.5-10.1) mg/dL Total Bilirubin (0.2-1.0) mg/dL AST (15-37) IU/L ALT (14-63) IU/L Alkaline Phosphatase (46-116) U/L Troponin I (0.000-0.056) ng/mL B-Natriuretic Peptide (<100) PG/ML Total Protein (6.4-8.2) g/dL Albumin (3.4-5.0) g/dL Globulin (2.6-4.0) g/dL Albumin/Globulin Ratio (0.9-1.6) Lipase (73-393) U/L TSH, Ultra Sensitive (0.36-3.74) uIU/mL Urine Color YELLOW Urine Appearance CLEAR Urine pH 6.0 (5.0-8.0) Ur Specific [place] 1.015 (1.001-1.035) Urine Protein NEGATIVE (NEGATIVE) mg/dL Urine Glucose (UA) NEGATIVE (NEGATIVE) mg/dL Urine Ketones NEGATIVE (NEGATIVE) mg/dL Urine Occult Blood TRACE-INTACT H (NEGATIVE) Urine Nitrite NEGATIVE (NEGATIVE) Urine Bilirubin NEGATIVE (NEGATIVE) Urine Urobilinogen 2.0 H (<2.0) EU/dL Ur Leukocyte Esterase SMALL H (NEGATIVE) Urine RBC 1-4 (0-2/HPF) Urine WBC 3-6 (0-5/HPF) Ur Epithelial Cells FEW (NONE-FEW) Calcium Oxalate Crystal FEW (NEGATIVE) Urine Bacteria FEW (NEGATIVE) Digoxin (0.9-2.0) ng/mL SARS-CoV-2 RNA (RL) (NEGATIVE) Result Diagrams: 09/20/21 06:53 09/20/21 06:53 Sepsis Event Note - Evaluation Sepsis Screening Result: No Definite Risk - Focused Exam Vital Signs: Vital Signs Temp Pulse Pulse Resp BP Pulse Ox 09/19/21 10:00 36.2 C 84 18 125/63 95 09/19/21 09:21 115 H 20 129/64 99 09/19/21 09:17 112 H 09/19/21 07:56 87 18 106/46 L 97 09/19/21 07:10 124 H 98 09/19/21 06:29 102 H 20 95/49 L 96 09/19/21 06:05 118 H 20 142/80 H 97 09/19/21 05:25 116 H 19 116/63 97 09/19/21 05:21 144 H 09/19/21 04:50 116 H 19 104/53 L 96 09/19/21 04:32 102 H 19 96 09/19/21 04:24 115 H 19 101/52 L 96 09/19/21 04:01 37.3 C 142 H 20 129/65 97 - Problem List (1) Atrial fibrillation with RVR SNOMED Code(s): 075670612359739 ICD Code: I48.91 - UNSPECIFIED ATRIAL FIBRILLATION Status: Acute Priority: Medium Current Visit: Yes (2) Fluid overload SNOMED Code(s): 94072136 ICD Code: E87.70 - FLUID OVERLOAD, UNSPECIFIED Status: Acute Current Visit: Yes (3) CHF (congestive heart failure) SNOMED Code(s): 32735172 ICD Code: I50.9 - HEART FAILURE, UNSPECIFIED Status: Chronic Current Vis it: Yes (4) Anticoagulated on Coumadin SNOMED Code(s): 62944216 ICD Code: Z51.81 - ENCOUNTER FOR THERAPEUTIC DRUG LEVEL MONITORING; Z79.01 - JAIL (CURRENT) USE OF ANTICOAGULANTS Status: Chronic Priority: Medium Current Visit: No (5) Cardiomyopathy SNOMED Code(s): 61875361 ICD Code: I42.9 - CARDIOMYOPATHY, UNSPECIFIED Status: Chronic Current Visit: No Problem List Initiated/Reviewed/Updated: Yes Orders Last 24hrs: Active Orders 24 hr Category Date Time Status Patient Status [ADT] Routine ADT 09/19/21 07:51 Active Antiembolic Devices [RC] PER UNIT ROUTINE Care 09/19/21 14:14 Ordered Oxygen Therapy [RC] ASDIRECTED Care 09/19/21 13:45 Active Oxygen Therapy [RC] PRN Care 09/19/21 14:14 Ordered RT Post Treatment Assessment [RC] Click to Edit Care 09/19/21 14:12 Ordered RT Pre-Treatment Assessment [RC] Click to Edit Care 09/19/21 14:12 Ordered Telemetry Monitoring [Cardiac Monitoring] [RC] Q8HR Care 09/19/21 14:00 Active Up ad Yuki [RC] ASDIRECTED Care 09/19/21 14:13 Ordered VTE/DVT Education [RC] PER UNIT ROUTINE Care 09/19/21 14:14 Ordered Vaccine to be Administered/Admin Charge [RC] ASDIRECTED Care 09/19/21 10:42 Active Vital Signs [RC] Q4H Care 09/19/21 14:14 Ordered CBC WITH AUTO DIFF [HEME] AM Lab 09/20/21 05:11 Ordered COMPREHENSIVE METABOLIC PN,CMP [CHEM] AM Lab 09/20/21 05:11 Ordered MAGNESIUM [CHEM] AM Lab 09/20/21 05:11 Ordered PHOSPHORUS [CHEM] AM Lab 09/20/21 05:11 Ordered Albuterol [Ventolin HFA] Med 09/19/21 14:10 Ordered 2 puff INH Q6HRRT PRN Bumetanide [Bumetanide] Med 09/19/21 14:15 Ordered 2 mg PO DAILY DULoxetine [Cymbalta] Med 09/19/21 14:15 Ordered 60 mg PO DAILY Digoxin [Lanoxin] Med 09/19/21 05:15 Active 125 mcg IVPUSH DAILY Digoxin [Lanoxin] Med 09/19/21 14:15 Ordered 62.5 mcg PO DAILY Diltiazem Med 09/19/21 14:15 Ordered 240 mg PO DAILY FLU Vacc [id number](65YR UP)/PF [Fluzone High-Dose Quad Med 09/24/21 11:00 Once ] 240 mcg IM .ONCE ONE Levothyroxine Med 09/19/21 07:30 Ordered 75,000 mcg PO ACBREAKFAST Lisinopril Med 09/19/21 21:00 Ordered 5 mg PO BID Methadone Med 09/19/21 14:10 Ordered 10 mg PO TID PRN Omeprazole Magnesium [Prilosec Otc] Med 09/20/21 07:30 Ordered 40 mg PO ACBREAKFAST Warfarin Med 09/19/21 14:15 Ordered 4 mg PO ASDIRECTED carvediloL [Coreg] Med 09/19/21 17:00 Ordered 18.75 mg PO BIDMEALS Sequential Compression Device [OM.PC] Per Unit Routine Oth 09/19/21 14:14 Ordered Resuscitation Status Routine Resus Stat 09/19/21 14:13 Ordered Medication Orders Albuterol (Albuterol 8 Gm Inhaler) 0 gm INH Q6HRRT PRN PRN Reason: Shortness of Breath Carvedilol (Carvedilol 12.5 Mg Tab) 18.75 mg PO BIDMEALS [facility] Digoxin (Digoxin 500 Mcg/2 Ml Amp) 125 mcg IVPUSH DAILY [facility] Last Admin: 09/19/21 09:17 Dose: 125 mcg Documented by: Admin: 09/19/21 05:21 Dose: 125 mcg Documented by: MOSHE Duloxetine HCl (Duloxetine 60 Mg Cap) 60 mg PO DAILY [facility] Influenza Virus Vaccine (Flu Vacc [id number](65yr Up)/Pf 240 Mcg/0.7 Ml Syringe) 240 mcg IM .ONCE ONE Stop: 09/24/21 11:01 Levothyroxine Sodium (Levothyroxine 75 Mcg Tab) 75,000 mcg PO ACBREAKFAST [facility] Methadone HCl (Methadone 10 Mg Tab) 10 mg PO TID PRN PRN Reason: Pain Non-Formulary Medication (Bumetanide [Bumetanide]) 2 mg PO DAILY [place] Non-Formulary Medication (Digoxin [Lanoxin]) 62.5 mcg PO DAILY [place] Non-Formulary Medication (Diltiazem) 240 mg PO DAILY [place] Non-Formulary Medication (Lisinopril) 5 mg PO BID [place] Non-Formulary Medication (Omeprazole Magnesium [Prilosec Otc]) 40 mg PO ACBREAKFAST [place] Non-Formulary Medication (Warfarin) 4 mg PO ASDIRECTED [facility] Assessment/Plan Comment:: 71 yo female admitted for atrial fibrillation with RVR. A.fib with RVR: rate controlled after IV diltiazem pushes in ED, will contiue to monitor and will resume home medications of diltiazem and coreg.
[2021-09-19] MEDS ORDERED: DIGOXIN 125 MCG PO SCH (14:30)
[2021-09-19] MEDS ORDERED: Levothyroxine 75 MCG Tab PO SCH (14:30)
[2021-09-19] MEDS: Methadone 10 MG Tab PO PRN ×2 (14:58→21:15)
[2021-09-19] MEDS: DULoxetine 60 MG Cap PO SCH (14:59)
[2021-09-19] MEDS: Bumetanide 1 MG Tab PO SCH (14:59)
[2021-09-19] MEDS: Diltiazem 120 MG Cap.CD PO SCH (14:59)
[2021-09-19] MEDS: Digoxin 125 MCG Tab PO SCH (15:05)
[2021-09-19] MEDS: Levothyroxine 75 MCG Tab PO SCH (16:43)
[2021-09-19] MEDS: Carvedilol 12.5 MG Tab PO SCH (16:45)
[2021-09-19] MEDS: Lisinopril 5 MG Tab PO SCH (20:53)
[2021-09-19] MEDS ORDERED: Warfarin 2 MG, Warfarin 1 MG PO SCH ×2 (21:00)
[2021-09-19] MEDS: Warfarin Sliding Scale PO SCH (21:24)
[2021-09-20] MEDS: Melatonin 3 MG Tab PO PRN (00:17)
[2021-09-20] MEDS: Methadone 10 MG Tab PO PRN (06:01)
[2021-09-20] MEDS: Levothyroxine 75 MCG Tab PO SCH (07:00)
[2021-09-20] MEDS: Omeprazole 20 MG Cap.CR PO SCH ×2 (07:00→08:55)
[2021-09-20 07:38] LABS: CARBON DIOXIDE,CO2 32.9 mmol/L (21.0-32.0); POTASSIUM,K 3.4 mmol/L (3.5-5.1)
[2021-09-20] MEDS: DULoxetine 60 MG Cap PO SCH (08:00)
[2021-09-20] MEDS: Carvedilol 12.5 MG Tab PO SCH ×2 (08:01→16:25)
[2021-09-20] MEDS: Diltiazem 120 MG Cap.CD PO SCH (08:02)
[2021-09-20] MEDS: Digoxin 125 MCG Tab PO SCH (08:03)
[2021-09-20] MEDS: Lisinopril 5 MG Tab PO SCH ×2 (08:04→21:24)
[2021-09-20] MEDS: Bumetanide 1 MG Tab PO SCH (08:05)
[2021-09-20] MEDS: Digoxin 500 MCG/2 ML Amp IVPUSH SCH (08:06)
[2021-09-20] MEDS ORDERED: Potassium Chloride 20 MEQ Tab.ER PO ONE (08:12)
[2021-09-20] MEDS: Polyethylene Glycol 3350 Powder 17 GM Packet PO SCH (08:54)
--- NOTE | 2021-09-20 10:22 | PCM.PN ---
- General Info Date of Service: 09/20/21 - Review of Systems Systems Review Comment:: patient reports feeling blah, has no energy, denies any palpitations, chest pain, or shortness of breath - Patient Data Vitals - Most Recent: Last Vital Signs Temp 36.3 C 09/20/21 07:50 Pulse 87 09/20/21 08:06 Resp 18 09/20/21 07:50 BP 112/54 L 09/20/21 08:04 Pulse Ox 96 09/20/21 07:50 Weight - Most Recent: 67.3 kg I&O - Last 24 Hours: Intake & Output 09/19/21 09/20/21 09/20/21 22:59 06:59 14:59 Intake Total 650 1140 Output Total 550 1825 Balance 100 -685 Lab Results Last 24 Hours: Laboratory Results - last 24 hr 09/20/21 09/20/21 Range/Units 06:53 06:53 WBC 7.41 (4.0-11.0) K/uL RBC 3.95 L (4.30-5.90) M/uL Hgb 9.6 L (12.0-16.0) g/dL Hct 31.9 L (36.0-46.0) % MCV 80.8 (80.0-98.0) fL MCH 24.3 L (27.0-32.0) pg MCHC 30.1 L (31.0-37.0) g/dL RDW Std Deviation 43.6 (28.0-62.0) fl RDW Coeff of Shaun 15 (11.0-15.0) % Plt Count 231 (150-400) K/uL MPV 9.60 (7.40-12.00) fL Neut % (Auto) 76.0 (48.0-80.0) % Lymph % (Auto) 12.6 L (16.0-40.0) % Bell % (Auto) 10.4 (0.0-15.0) % Eos % (Auto) 0.9 (0.0-7.0) % Baso % (Auto) 0.1 (0.0-1.5) % Neut # (Auto) 5.6 (1.4-5.7) K/uL Lymph # (Auto) 0.9 (0.6-2.4) K/uL Bell # (Auto) 0.8 (0.0-0.8) K/uL Eos # (Auto) 0.1 (0.0-0.7) K/uL Baso # (Auto) 0.0 (0.0-0.1) K/uL Nucleated RBC % 0.0 /100WBC Nucleated RBCs # 0 K/uL Sodium 136 (136-145) mmol/L Potassium 3.4 L (3.5-5.1) mmol/L Chloride 96 L (98-107) mmol/L Carbon Dioxide 32.9 H (21.0-32.0) mmol/L BUN 20 H (7.0-18.0) mg/dL Creatinine 1.0 (0.6-1.0) mg/dL Est Cr Clr Drug Dosing 37.06 mL/min Estimated GFR (MDRD) 54.7 ml/min Glucose 111 H (74-106) mg/dL Calcium 8.7 (8.5-10.1) mg/dL Phosphorus 3.2 (2.6-4.7) mg/dL Magnesium 2.0 (1.8-2.4) mg/dL Total Bilirubin 0.6 (0.2-1.0) mg/dL AST 53 H (15-37) IU/L ALT 68 H (14-63) IU/L Alkaline Phosphatase 136 H (46-116) U/L Total Protein 7.4 (6.4-8.2) g/dL Albumin 3.1 L (3.4-5.0) g/dL Globulin 4.3 H (2.6-4.0) g/dL Albumin/Globulin Ratio 0.7 L (0.9-1.6) Med Orders - Current: Current Medications Albuterol (Albuterol 8 Gm Inhaler) 0 gm INH Q6HRRT PRN PRN Reason: Shortness of Breath Bumetanide (Bumetanide 1 Mg Tab) 2 mg PO DAILY [facility] Last Admin: 09/20/21 08:05 Dose: 2 mg Documented by: Carvedilol (Carvedilol 12.5 Mg Tab) 18.75 mg PO BIDMEALS [facility] Last Admin: 09/20/21 08:01 Dose: 18.75 mg Documented by: Digoxin (Digoxin 500 Mcg/2 Ml Amp) 125 mcg IVPUSH DAILY [facility] Last Admin: 09/20/21 08:06 Dose: 125 mcg Documented by: Digoxin (Digoxin 125 Mcg Tab) 62.5 mcg PO DAILY [facility] Last Admin: 09/20/21 08:03 Dose: 62.5 mcg Documented by: Diltiazem HCl (Diltiazem 120 Mg Cap.Cd) 240 mg PO DAILY [facility] Last Admin: 09/20/21 08:02 Dose: 240 mg Documented by: Duloxetine HCl (Duloxetine 60 Mg Cap) 60 mg PO DAILY [facility] Last Admin: 09/20/21 08:00 Dose: 60 mg Documented by: Influenza Virus Vaccine (Flu Vacc [id number](65yr Up)/Pf 240 Mcg/0.7 Ml Syringe) 240 mcg IM .ONCE ONE Stop: 09/24/21 11:01 Levothyroxine Sodium (Levothyroxine 75 Mcg Tab) 75 mcg PO ACBREAKFAST [facility] Last Admin: 09/20/21 07:00 Dose: 75 mcg Documented by: Lisinopril (Lisinopril 5 Mg Tab) 5 mg PO BID [facility] Last Admin: 09/20/21 08:04 Dose: 5 mg Documented by: Melatonin (Melatonin 3 Mg Tab) 6 mg PO BEDTIME PRN PRN Reason: Insomnia Last Admin: 09/20/21 00:17 Dose: 6 mg Documented by: Methadone HCl (Methadone 10 Mg Tab) 10 mg PO TID [facility] Omeprazole (Omeprazole 20 Mg Cap.Cr) 40 mg PO ACBREAKFAST [facility] Last Admin: 09/20/21 07:00 Dose: 40 mg Documented by: Omeprazole (Omeprazole 20 Mg Cap.Cr) 40 mg PO ACBREAKFAST [facility] Last Admin: 09/20/21 08:55 Dose: Not Given Documented by: Polyethylene Glycol (Polyethylene Glycol 3350 Powder 17 Gm Packet) 17 gm PO DAILY [facility] Last Admin: 09/20/21 08:54 Dose: 17 gm Documented by: Warfarin Sodium (Warfarin Sliding Scale) 1 each PO BEDTIME [facility] Last Admin: 09/19/21 21:24 Dose: 1 each Documented by: Discontinued Medications Diltiazem HCl (Diltiazem 25 Mg/5 Ml Sdv) 10 mg IVPUSH ONETIME ONE Stop: 09/19/21 04:14 Last Admin: 09/19/21 04:20 Dose: 10 mg Documented by: Diltiazem HCl (Diltiazem 25 Mg/5 Ml Sdv) 10 mg IVPUSH ONETIME ONE Stop: 09/19/21 06:24 Last Admin: 09/19/21 06:27 Dose: 10 mg Documented by: Furosemide (Furosemide 40 Mg/4 Ml Vial) 20 mg IVPUSH NOW ONE Stop: 09/19/21 06:36 Last Admin: 09/19/21 06:39 Dose: 20 mg Documented by: Influenza Virus Vaccine (Pharmacy To Dose - Influenza Vaccine) 1 each IM ONETIME ONE Stop: 09/19/21 10:43 Iopamidol (Iopamidol 755 Mg/Ml 500 Ml Multipack Bottle) 100 ml IVPUSH ONETIME ONE Stop: 09/19/21 05:28 Last Admin: 09/19/21 05:40 Dose: 75 ml Documented by: Levothyroxine Sodium (Levothyroxine 75 Mcg Tab) 75 mcg PO ACBREAKFAST [facility] Methadone HCl (Methadone 10 Mg Tab) 10 mg PO TID PRN PRN Reason: Pain Last Admin: 09/20/21 06:01 Dose: 10 mg Documented by: Digoxin 125 Mcg 0.5 each PO DAILY [facility] Potassium Chloride (Potassium Chloride 20 Meq Tab.Er) 40 meq PO ONETIME ONE Stop: 09/20/21 08:13 Last Admin: 09/20/21 08:54 Dose: 40 meq Documented by: Warfarin Sodium 2 mg/ Warfarin (Sodium 1 mg) 3 mg PO BEDTIME [facility] Stop: 09/19/21 22:00 Last Admin: 09/19/21 20:54 Dose: 3 mg Documented by: - Exam General: Alert, Oriented Neck: Supple Lungs: Clear to Auscultation, Normal Respiratory Effort Cardiovascular: Regular Rate, Irregular Rhythm GI/Abdominal Exam: Soft, Non-Tender Extremities: Non-Tender, No Pedal Edema Skin: Warm, Dry, Intact - Patient Data Lab Results Last 24 hrs: Laboratory Results - last 24 hr 09/20/21 09/20/21 Range/Units 06:53 06:53 WBC 7.41 (4.0-11.0) K/uL RBC 3.95 L (4.30-5.90) M/uL Hgb 9.6 L (12.0-16.0) g/dL Hct 31.9 L (36.0-46.0) % MCV 80.8 (80.0-98.0) fL MCH 24.3 L (27.0-32.0) pg MCHC 30.1 L (31.0-37.0) g/dL RDW Std Deviation 43.6 (28.0-62.0) fl RDW Coeff of Shaun 15 (11.0-15.0) % Plt Count 231 (150-400) K/uL MPV 9.60 (7.40-12.00) fL Neut % (Auto) 76.0 (48.0-80.0) % Lymph % (Auto) 12.6 L (16.0-40.0) % Bell % (Auto) 10.4 (0.0-15.0) % Eos % (Auto) 0.9 (0.0-7.0) % Baso % (Auto) 0.1 (0.0-1.5) % Neut # (Auto) 5.6 (1.4-5.7) K/uL Lymph # (Auto) 0.9 (0.6-2.4) K/uL Bell # (Auto) 0.8 (0.0-0.8) K/uL Eos # (Auto) 0.1 (0.0-0.7) K/uL Baso # (Auto) 0.0 (0.0-0.1) K/uL Nucleated RBC % 0.0 /100WBC Nucleated RBCs # 0 K/uL Sodium 136 (136-145) mmol/L Potassium 3.4 L (3.5-5.1) mmol/L Chloride 96 L (98-107) mmol/L Carbon Dioxide 32.9 H (21.0-32.0) mmol/L BUN 20 H (7.0-18.0) mg/dL Creatinine 1.0 (0.6-1.0) mg/dL Est Cr Clr Drug Dosing 37.06 mL/min Estimated GFR (MDRD) 54.7 ml/min Glucose 111 H (74-106) mg/dL Calcium 8.7 (8.5-10.1) mg/dL Phosphorus 3.2 (2.6-4.7) mg/dL Magnesium 2.0 (1.8-2.4) mg/dL Total Bilirubin 0.6 (0.2-1.0) mg/dL AST 53 H (15-37) IU/L ALT 68 H (14-63) IU/L Alkaline Phosphatase 136 H (46-116) U/L Total Protein 7.4 (6.4-8.2) g/dL Albumin 3.1 L (3.4-5.0) g/dL Globulin 4.3 H (2.6-4.0) g/dL Albumin/Globulin Ratio 0.7 L (0.9-1.6) Result Diagrams: 09/20/21 06:53 09/20/21 06:53 Sepsis Event Note - Evaluation Sepsis Screening Result: No Definite Risk - Focused Exam Vital Signs: Vital Signs Temp Pulse Pulse Resp BP BP Pulse Ox 09/20/21 08:06 87 09/20/21 08:04 112/54 L 09/20/21 08:03 87 09/20/21 08:02 87 112/54 L 09/20/21 08:01 87 112/54 L 09/20/21 07:50 36.3 C 87 18 112/54 L 96 09/20/21 04:00 35.7 C L 19 134/85 98 09/19/21 23:57 36.3 C 20 132/57 L 96 - Problem List & Annotations (1) Atrial fibrillation with RVR SNOMED Code(s): 824145379945652 Code(s): I48.91 - UNSPECIFIED ATRIAL FIBRILLATION Status: Acute Priority: Medium Current Visit: Yes (2) Fluid overload SNOMED Code(s): 50426844 Code(s): E87.70 - FLUID OVERLOAD, UNSPECIFIED Status: Acute Current Visit: Yes (3) CHF (congestive heart failure) SNOMED Code(s): 13417180 Code(s): I50.9 - HEART FAILURE, UNSPECIFIED Status: Chronic Current Visit: Yes (4) Anticoagulated on Coumadin SNOMED Code(s): 97631889 Code(s): Z51.81 - ENCOUNTER FOR THERAPEUTIC DRUG LEVEL MONITORING; Z79.01 - PENITENTIARY (CURRENT) USE OF ANTICOAGULANTS Status: Chronic Priority: Medium Current Visit: No (5) Cardiomyopathy SNOMED Code(s): 43942810 Code(s): I42.9 - CARDIOMYOPATHY, UNSPECIFIED Status: Chronic Current Visit: No - Problem List Review Problem List Initiated/Reviewed/Updated: Yes - My Orders Last 24 Hours: My Active Orders 09/19/21 10:42 Vaccine to be Administered/Admin Charge [RC] ASDIRECTED 09/19/21 13:45 Oxygen Therapy [RC] ASDIRECTED 09/19/21 14:00 Telemetry Monitoring [Cardiac Monitoring] [RC] Q8H 09/19/21 14:10 Albuterol [Ventolin HFA] 0 gm INH Q6HRRT PRN 09/19/21 14:12 RT Post Treatment Assessment [RC] Click to Edit RT Pre-Treatment Assessment [RC] Click to Edit 09/19/21 14:13 Up ad Yuki [RC] ASDIRECTED Resuscitation Status Routine 09/19/21 14:14 Antiembolic Devices [RC] PER UNIT ROUTINE Oxygen Therapy [RC] PRN VTE/DVT Education [RC] PER UNIT ROUTINE Vital Signs [RC] Q4H Sequential Compression Device [OM.PC] Per Unit Routine 09/19/21 14:15 Bumetanide [Bumex] 2 mg PO DAILY DULoxetine [Cymbalta] 60 mg PO DAILY 09/19/21 14:30 Digoxin [Lanoxin] 62.5 mcg PO DAILY Diltiazem [Cardizem CD] 240 mg PO DAILY 09/19/21 Dinner Heart Healthy Diet [DIET] 09/19/21 17:00 Levothyroxine 75 mcg PO ACBREAKFAST carvediloL [Coreg] 18.75 mg PO BIDMEALS 09/19/21 21:00 Warfarin Sliding Scale [Coumadin Sliding Scale] 1 each PO BEDTIME lisinopriL [Prinivil] 5 mg PO BID 09/19/21 23:58 Melatonin 6 mg PO BEDTIME PRN 09/20/21 07:30 Omeprazole 40 mg PO ACBREAKFAST 09/20/21 08:45 Omeprazole 40 mg PO ACBREAKFAST 09/20/21 09:00 polyethylene glycoL 3350 [MiraLAX] 17 gm PO DAILY 09/20/21 14:00 Methadone 10 mg PO TID 09/24/21 11:00 FLU Vacc [id number](65YR UP)/PF [Fluzone High-Dose Quad 2020-] 240 mcg IM .ONCE ONE - Plan Plan:: 71 yo female admitted for atrial fibrillation with RVR. A.fib with RVR: rate controlled on home medical regiment. Chronic pain: on methadone, dispo: likely discharge home tomorrow.
[2021-09-20] MEDS: Methadone 10 MG Tab PO SCH ×2 (14:23→22:10)
[2021-09-20] MEDS ORDERED: Calcium Carbonate 500 MG Tab.Chew PO PRN (19:37)
[2021-09-20] MEDS ORDERED: Warfarin 2 MG Tab PO SCH (21:00)
[2021-09-20] MEDS ORDERED: Warfarin 5 MG Tab PO SCH (22:00)
[2021-09-20] MEDS: Warfarin Sliding Scale PO SCH (22:10)
[2021-09-21] MEDS: Melatonin 3 MG Tab PO PRN (01:39)
[2021-09-21] MEDS: Methadone 10 MG Tab PO SCH (06:03)
[2021-09-21] MEDS: Levothyroxine 75 MCG Tab PO SCH (06:46)
[2021-09-21] MEDS: Omeprazole 20 MG Cap.CR PO SCH ×2 (06:48→08:27)
[2021-09-21 06:58] LABS: CARBON DIOXIDE,CO2 31.3 mmol/L (21.0-32.0); POTASSIUM,K 4.1 mmol/L (3.5-5.1)
[2021-09-21] MEDS: Lisinopril 5 MG Tab PO SCH (08:23)
[2021-09-21] MEDS: DULoxetine 60 MG Cap PO SCH (08:23)
[2021-09-21] MEDS: Carvedilol 12.5 MG Tab PO SCH (08:27)
[2021-09-21] MEDS: Diltiazem 120 MG Cap.CD PO SCH (08:28)
[2021-09-21] MEDS: Digoxin 125 MCG Tab PO SCH (08:29)
[2021-09-21] MEDS: Bumetanide 1 MG Tab PO SCH (08:31)
[2021-09-21] MEDS: Digoxin 500 MCG/2 ML Amp IVPUSH SCH (08:32)
[2021-09-21 08:36] VITALS: BP 103/49; PULSE 85
[2021-09-21] MEDS: Polyethylene Glycol 3350 Powder 17 GM Packet PO SCH (11:03)
--- NOTE | 2021-09-21 11:33 | PCM.DCSUM1 ---
Discharge Summary - Discharge Data Discharge Date: 09/21/21 Discharge Disposition: Home, Self-Care 01 Condition: Stable - Referral to Home Health Primary Care Physician: Jonathan Sultana MD - Discharge Diagnosis/Problem(s) (1) Atrial fibrillation with RVR SNOMED Code(s): 130613506219631 ICD Code: I48.91 - UNSPECIFIED ATRIAL FIBRILLATION Status: Acute Priority: Medium Current Visit: Yes (2) Fluid overload SNOMED Code(s): 23072335 ICD Code: E87.70 - FLUID OVERLOAD, UNSPECIFIED Status: Acute Current Visit: Yes (3) CHF (congestive heart failure) SNOMED Code(s): 66223221 ICD Code: I50.9 - HEART FAILURE, UNSPECIFIED Status: Chronic Current Visit: Yes (4) Anticoagulated on Coumadin SNOMED Code(s): 78826771 ICD Code: Z51.81 - ENCOUNTER FOR THERAPEUTIC DRUG LEVEL MONITORING; Z79.01 - BRAZER INDUCTION (CURRENT) USE OF ANTICOAGULANTS Status: Chronic Priority: Medium Current Visit: No (5) Cardiomyopathy SNOMED Code(s): 13317136 ICD Code: I42.9 - CARDIOMYOPATHY, UNSPECIFIED Status: Chronic Current Visit: No - Patient Summary/Data Hospital Course: 71 yo female with pmh of hypertension, A. fib, mechanical heart valve, CHF, COPD who woke up a night with shortness of breath and heart palpitations. Patient reported abdominal discomfort and nausea. In the ED she was noted to have atrial fibrillation with rapid heart rate. CXR reported cardiomegaly with interstitial pulmonary edema. CT abdomen reported moderate amount of fecal material in the colon. Patient was given IV diltiazem, additional dose of michael ogin, and diuretic in the ED with improvement in her symptoms. She was monitor on the hospital floor for two nights and heart rate was well controlled with the resumption of her home medications. She feels well enough to go home. Patient is to follow up with Dr. Sultana and Dr. Su. - Patient Instructions Diet: Heart Healthy Diet Activity: As Tolerated Notify Provider of: Increased Pain, Nausea and/or Vomiting - Discharge Plan Home Medications: Home Meds Methadone 10 mg PO TID PRN 01/12/18 [History] Digoxin [Lanoxin] 62.5 mcg PO DAILY 11/08/18 [History] Lisinopril 5 mg PO BID 11/08/18 [History] carvediloL [Carvedilol] 18.75 mg PO BIDMEALS 11/08/18 [History] Bumetanide 2 mg PO DAILY 07/05/19 [History] Diltiazem [Dilacor XR] 240 mg PO DAILY 08/03/19 [History] Iron 27 mg PO DAILY 08/03/19 [History] Omeprazole Magnesium [Prilosec Otc] 40 mg PO ACBREAKFAST 08/03/19 [History] polyethylene glycoL 3350 [MiraLAX] 17 gm PO DAILY 03/26/20 [History] Albuterol [Proventil Neb Soln] 3 ml INH ASDIRECTED PRN 05/19/20 [History] Calcium Carb, Citrate/Vit D3 [Citracal + D ER] 1 each PO DAILY 05/19/20 [History] Non-Formulary Medication [NF Drug] 1 each 05/19/20 [History] diphenhydrAMINE [Benadryl] 50 mg PO BEDTIME 05/19/20 [History] oxyCODONE 5 mg PO Q6HR 05/19/20 [History] Albuterol [Ventolin HFA] 2 puff INH Q6HRRT PRN 09/19/21 [History] DULoxetine [Cymbalta] 60 mg PO DAILY 09/19/21 [History] Levothyroxine 75 mg PO ACBREAKFAST 09/19/21 [History] Methadone 2.5 mg PO DAILY PRN 09/19/21 [History] Warfarin [Coumadin] 0 mg PO ASDIRECTED 09/19/21 [History] Patient Handouts: Heart Failure, Self-Care, [id number], Heart Failure, Diagnosis, [id number], Atrial Fibrillation, [id number] Referrals: Jonathan Sultana MD [Primary Care Provider] - Khris Dillard MD [Physician] - 10/07/21 1:00 pm - Discharge Summary/Plan Comment DC Time >30 min.: No Total # of Minutes for Discharge Time: 15 - Patient Data Vitals - Most Recent: Last Vital Signs Temp 35.9 C L 09/21/21 08:00 Pulse 85 09/21/21 08:32 Resp 22 H 09/21/21 08:00 BP 103/49 L 09/21/21 08:28 Pulse Ox 97 09/21/21 08:00 Weight - Most Recent: 67.8 kg I&O - Last 24 hours: Intake & Output 09/20/21 09/21/21 09/21/21 22:59 06:59 14:59 Intake Total 700 440 Output Total 600 450 Balance 100 -10 Lab Results - Last 24 hrs: Laboratory Results - last 24 hr 09/20/21 09/21/21 09/21/21 Range/Units 21:10 05:21 05:21 WBC 6.52 (4.0-11.0) K/uL RBC 3.83 L (4.30-5.90) M/uL Hgb 9.3 L (12.0-16.0) g/dL Hct 31.2 L (36.0-46.0) % MCV 81.5 (80.0-98.0) fL MCH 24.3 L (27.0-32.0) pg MCHC 29.8 L (31.0-37.0) g/dL RDW Std Deviation 44.2 (28.0-62.0) fl RDW Coeff of Shaun 15 (11.0-15.0) % Plt Count 244 (150-400) K/uL MPV 10.20 (7.40-12.00) fL Neut % (Auto) 64.3 (48.0-80.0) % Lymph % (Auto) 18.6 (16.0-40.0) % Clinton % (Auto) 14.1 (0.0-15.0) % Eos % (Auto) 2.8 (0.0-7.0) % Baso % (Auto) 0.2 (0.0-1.5) % Neut # (Auto) 4.2 (1.4-5.7) K/uL Lymph # (Auto) 1.2 (0.6-2.4) K/uL [place] # (Auto) 0.9 H (0.0-0.8) K/uL Eos # (Auto) 0.2 (0.0-0.7) K/uL Baso # (Auto) 0.0 (0.0-0.1) K/uL Nucleated RBC % 0.0 /100WBC Nucleated RBCs # 0 K/uL INR 2.20 2.09 Sodium (136-145) mmol/L Potassium (3.5-5.1) mmol/L Chloride (98-107) mmol/L Carbon Dioxide (21.0-32.0) mmol/L BUN (7.0-18.0) mg/dL Creatinine (0.6-1.0) mg/dL Est Cr Clr Drug Dosing mL/min Estimated GFR (MDRD) ml/min Glucose (74-106) mg/dL Calcium (8.5-10.1) mg/dL 09/21/21 Range/Units 05:21 WBC (4.0-11.0) K/uL RBC (4.30-5.90) M/uL Hgb (12.0-16.0) g/dL Hct (36.0-46.0) % MCV (80.0-98.0) fL MCH (27.0-32.0) pg MCHC (31.0-37.0) g/dL RDW Std Deviation (28.0-62.0) fl RDW Coeff of Shaun (11.0-15.0) % Plt Count (150-400) K/uL MPV (7.40-12.00) fL Neut % (Auto) (48.0-80.0) % Lymph % (Auto) (16.0-40.0) % [place] % (Auto) (0.0-15.0) % Eos % (Auto) (0.0-7.0) % Baso % (Auto) (0.0-1.5) % Neut # (Auto) (1.4-5.7) K/uL Lymph # (Auto) (0.6-2.4) K/uL [place] # (Auto) (0.0-0.8) K/uL Eos # (Auto) (0.0-0.7) K/uL Baso # (Auto) (0.0-0.1) K/uL Nucleated RBC % /100WBC Nucleated RBCs # K/uL INR Sodium 137 (136-145) mmol/L Potassium 4.1 (3.5-5.1) mmol/L Chloride 99 (98-107) mmol/L Carbon Dioxide 31.3 (21.0-32.0) mmol/L BUN 24 H (7.0-18.0) mg/dL Creatinine 1.1 H (0.6-1.0) mg/dL Est Cr Clr Drug Dosing 33.69 mL/min Estimated GFR (MDRD) 49.0 ml/min Glucose 105 (74-106) mg/dL Calcium 8.5 (8.5-10.1) mg/dL Med Orders - Current: Current Medications Albuterol (Albuterol 8 Gm Inhaler) 0 gm INH Q6HRRT PRN PRN Reason: Shortness of Breath Bumetanide (Bumetanide 1 Mg Tab) 2 mg PO DAILY [facility] Last Admin: 09/21/21 08:31 Dose: 2 mg Documented by: Calcium Carbonate/Glycine (Calcium Carbonate 500 Mg Tab.Chew) 500 mg PO TID PRN PRN Reason: Indigestion Last Admin: 09/20/21 20:33 Dose: 500 mg Documented by: Carvedilol (Carvedilol 12.5 Mg Tab) 18.75 mg PO BIDMEALS [facility] Last Admin: 09/21/21 08:27 Dose: 18.75 mg Documented by: Digoxin (Digoxin 500 Mcg/2 Ml Amp) 125 mcg IVPUSH DAILY [facility] Last Admin: 09/21/21 08:32 Dose: 125 mcg Documented by: Digoxin (Digoxin 125 Mcg Tab) 62.5 mcg PO DAILY [facility] Last Admin: 09/21/21 08:29 Dose: 62.5 mcg Documented by: Diltiazem HCl (Diltiazem 120 Mg Cap.Cd) 240 mg PO DAILY [facility] Last Admin: 09/21/21 08:28 Dose: 240 mg Documented by: Duloxetine HCl (Duloxetine 60 Mg Cap) 60 mg PO DAILY [facility] Last Admin: 09/21/21 08:23 Dose: 60 mg Documented by: Influenza Virus Vaccine (Flu Vacc Qm1023-30(65yr Up)/Pf 240 Mcg/0.7 Ml Syringe) 240 mcg IM .ONCE ONE Stop: 09/24/21 11:01 Levothyroxine Sodium (Levothyroxine 75 Mcg Tab) 75 mcg PO ACBREAKFAST [facility] Last Admin: 09/21/21 06:46 Dose: 75 mcg Documented by: Lisinopril (Lisinopril 5 Mg Tab) 5 mg PO BID [facility] Last Admin: 09/21/21 08:23 Dose: 5 mg Documented by: Melatonin (Melatonin 3 Mg Tab) 6 mg PO BEDTIME PRN PRN Reason: Insomnia Last Admin: 09/21/21 01:39 Dose: 6 mg Documented by: Methadone HCl (Methadone 10 Mg Tab) 10 mg PO TID [facility] Last Admin: 09/21/21 06:03 Dose: 10 mg Documented by: Omeprazole (Omeprazole 20 Mg Cap.Cr) 40 mg PO ACBREAKFAST [facility] Last Admin: 09/21/21 06:48 Dose: 40 mg Documented by: Omeprazole (Omeprazole 20 Mg Cap.Cr) 40 mg PO ACBREAKFAST [facility] Last Admin: 09/21/21 08:27 Dose: 40 mg Documented by: Polyethylene Glycol (Polyethylene Glycol 3350 Powder 17 Gm Packet) 17 gm PO DAILY [facility] Last Admin: 09/21/21 11:03 Dose: 17 gm Documented by: Warfarin Sodium (Warfarin Sliding Scale) 1 each PO BEDTIME [facility] Last Admin: 09/20/21 22:10 Dose: 1 each Documented by: Discontinued Medications Diltiazem HCl (Diltiazem 25 Mg/5 Ml Sdv) 10 mg IVPUSH ONETIME ONE Stop: 09/19/21 04:14 Last Admin: 09/19/21 04:20 Dose: 10 mg Documented by: Diltiazem HCl (Diltiazem 25 Mg/5 Ml Sdv) 10 mg IVPUSH ONETIME ONE Stop: 09/19/21 06:24 Last Admin: 09/19/21 06:27 Dose: 10 mg Documented by: Furosemide (Furosemide 40 Mg/4 Ml Vial) 20 mg IVPUSH NOW ONE Stop: 09/19/21 06:36 Last Admin: 09/19/21 06:39 Dose: 20 mg Documented by: Influenza Virus Vaccine (Pharmacy To Dose - Influenza Vaccine) 1 each IM ONETIME ONE Stop: 09/19/21 10:43 Iopamidol (Iopamidol 755 Mg/Ml 500 Ml Multipack Bottle) 100 ml IVPUSH ONETIME ONE Stop: 09/19/21 05:28 Last Admin: 09/19/21 05:40 Dose: 75 ml Documented by: Levothyroxine Sodium (Levothyroxine 75 Mcg Tab) 75 mcg PO ACBREAKFAST [facility] Methadone HCl (Methadone 10 Mg Tab) 10 mg PO TID PRN PRN Reason: Pain Last Admin: 09/20/21 06:01 Dose: 10 mg Documented by: Digoxin 125 Mcg 0.5 each PO DAILY [facility] Potassium Chloride (Potassium Chloride 20 Meq Tab.Er) 40 meq PO ONETIME ONE Stop: 09/20/21 08:13 Last Admin: 09/20/21 08:54 Dose: 40 meq Documented by: Warfarin Sodium 2 mg/ Warfarin (Sodium 1 mg) 3 mg PO BEDTIME [facility] Stop: 09/19/21 22:00 Last Admin: 09/19/21 20:54 Dose: 3 mg Documented by: Warfarin Sodium (Warfarin 5 Mg Tab) 5 mg PO BEDTIME [facility] Stop: 09/20/21 22:01 Last Admin: 09/20/21 22:10 Dose: 5 mg Documented by:
== END 2021-09-21 12:15 | disposition home or self-care (01) | DRG 310 ==
LOC: MW.ED 03:57 → MW.MS 07:51
PROVIDERS: ADMIT Internal Medicine; ATTEND Internal Medicine
DX: I48.0 Paroxysmal atrial fibrillation (principal); I48.91 Unspecified atrial fibrillation; I50.9 Heart failure, unspecified; I42.9 Cardiomyopathy, unspecified; H54.7 Unspecified visual loss; K21.9 Gastro-esophageal reflux disease without esophagitis; M19.90 Unspecified osteoarthritis, unspecified site; M54.9 Dorsalgia, unspecified; G89.29 Other chronic pain; F41.9 Anxiety disorder, unspecified; Z20.822 Contact with and (suspected) exposure to COVID-19; F32.A Depression, unspecified; E03.9 Hypothyroidism, unspecified; F17.200 Nicotine dependence, unspecified, uncomplicated; I11.0 Hypertensive heart disease with heart failure; I34.0 Nonrheumatic mitral (valve) insufficiency; M41.9 Scoliosis, unspecified; G25.81 Restless legs syndrome; Z79.891 Long term (current) use of opiate analgesic; Z79.01 Long term (current) use of anticoagulants; Z95.2 Presence of prosthetic heart valve; Z99.81 Dependence on supplemental oxygen; Z86.73 Personal history of transient ischemic attack (TIA), and cerebral infarction without residual deficits; Z79.899 Other long term (current) drug therapy; Z79.890 Hormone replacement therapy; Z98.51 Tubal ligation status; Z90.49 Acquired absence of other specified parts of digestive tract; Z85.3 Personal history of malignant neoplasm of breast
CPT/HCPCS: 36415; 71045; 74177; 80053; 80162; 81001; 83605; 83690; 83880; 84443; 84484; 85025; 85610; 96374; 96375; 96376; 99285; J1160; J1940; J3490 ×2; Q9967; U0002; 80048; 83735; 84100; 93005; A9270-GY

== ENCOUNTER 2021-12-10 03:49 | Emergency (ER) | payer MEDICARE, OTHER ==
[2021-12-10] MEDS ORDERED: Sodium Chloride 0.9% 2.5 ML Syringe FLUSH PRN (04:01)
[2021-12-10] MEDS ORDERED: Sodium Chloride 0.9% 10 ML Syringe FLUSH PRN (04:01)
[2021-12-10] MEDS ORDERED: methylPREDNISolone Sodium Succinate 125 MG/2 ML SDV IVPUSH ONE (04:14)
[2021-12-10 04:33] LABS: BLOOD UREA NITROGEN,BUN 30 mg/dL (7.0-18.0); CARBON DIOXIDE,CO2 29.9 mmol/L (21.0-32.0); CHLORIDE,CL 102 mmol/L (98-107); GLUCOSE RANDOM 112 mg/dL (74-106); POTASSIUM,K 4.3 mmol/L (3.5-5.1); SODIUM,NA 137 mmol/L (136-145)
[2021-12-10] MEDS ORDERED: Albuterol 8 GM Inhaler INH ONE (04:40)
[2021-12-10 05:42] LABS: CORONAVIRUS COVID-19 NAA POSITIVE (NEGATIVE); INFLUENZA A NAA NEGATIVE (NEGATIVE); INFLUENZA B NAA NEGATIVE (NEGATIVE)
[2021-12-10 06:00] VITALS: PULSE 88
[2021-12-10 06:28] VITALS: BP 101/46
== END 2021-12-10 06:30 | disposition home or self-care (01) ==
LOC: MW.ED 03:49
DX: U07.1 COVID-19 (principal); J44.1 Chronic obstructive pulmonary disease with (acute) exacerbation; I48.91 Unspecified atrial fibrillation; I11.0 Hypertensive heart disease with heart failure; I50.9 Heart failure, unspecified; K21.9 Gastro-esophageal reflux disease without esophagitis; E03.9 Hypothyroidism, unspecified; Z79.899 Other long term (current) drug therapy; Z86.73 Personal history of transient ischemic attack (TIA), and cerebral infarction without residual deficits
CPT/HCPCS: 0240U; 36415; 71045; 80053; 80162; 83880; 84484; 85025; 85610; 93005; 96374; 99285; A9270; J2930

== ENCOUNTER 2021-12-22 08:57 | Observation (INO) | payer MEDICARE, OTHER ==
[2021-12-22] MEDS ORDERED: Sodium Chloride 0.9% 10 ML Syringe FLUSH PRN (09:29)
[2021-12-22] MEDS ORDERED: Sodium Chloride 0.9% 2.5 ML Syringe FLUSH PRN ×2 (09:29→13:10)
[2021-12-22 10:30] LABS: BLOOD UREA NITROGEN,BUN 26 mg/dL (7.0-18.0); CARBON DIOXIDE,CO2 28.8 mmol/L (21.0-32.0); CHLORIDE,CL 104 mmol/L (98-107); GLUCOSE RANDOM 104 mg/dL (74-106); POTASSIUM,K 4.6 mmol/L (3.5-5.1); SODIUM,NA 140 mmol/L (136-145)
[2021-12-22] MEDS ORDERED: Furosemide 40 MG/4 ML VIAL IVPUSH ONE ×3 (11:32→21:00)
[2021-12-22] MEDS ORDERED: Acetaminophen 325 MG Tab PO PRN (13:10)
[2021-12-22] MEDS ORDERED: Ondansetron 4 MG/2 ML SDV IVPUSH PRN (13:10)
[2021-12-22] MEDS ORDERED: METHADONE PO PRN (13:40)
[2021-12-22] MEDS ORDERED: Carvedilol 25 MG Tab PO SCH ×2 (17:00→18:00)
[2021-12-22] MEDS: Warfarin Sliding Scale SCH (18:03)
[2021-12-22] MEDS: Lisinopril 5 MG Tab PO SCH (21:37)
[2021-12-22] MEDS: Methadone 10 MG Tab PO PRN (21:37)
[2021-12-22] MEDS: Carvedilol 25 MG Tab PO SCH (21:41)
[2021-12-23] MEDS: Albuterol 8 GM Inhaler INH PRN ×2 (05:20→20:38)
[2021-12-23] MEDS: Methadone 10 MG Tab PO PRN ×3 (06:56→23:29)
[2021-12-23] MEDS: Levothyroxine 75 MCG Tab PO SCH (06:57)
[2021-12-23 07:19] LABS: CARBON DIOXIDE,CO2 29.6 mmol/L (21.0-32.0); POTASSIUM,K 3.6 mmol/L (3.5-5.1)
[2021-12-23] MEDS: Bumetanide 1 MG Tab PO SCH (08:44)
[2021-12-23] MEDS: Omeprazole 20 MG Cap.CR PO SCH (08:44)
[2021-12-23] MEDS: Cholecalciferol (Vitamin D3) 25 MCG Tab PO SCH (08:44)
[2021-12-23] MEDS: Carvedilol 25 MG Tab PO SCH ×2 (08:45→17:55)
[2021-12-23] MEDS: Digoxin 125 MCG Tab PO SCH (08:46)
[2021-12-23] MEDS: Lisinopril 5 MG Tab PO SCH ×2 (08:46→20:38)
[2021-12-23] MEDS: DULoxetine 60 MG Cap PO SCH (08:47)
[2021-12-23] MEDS: Polyethylene Glycol 3350 Powder 17 GM Packet PO SCH (08:48)
[2021-12-23] MEDS: Nicotine 14 MG/24 Hr Patch TRDERM SCH (08:48)
[2021-12-23] MEDS ORDERED: Furosemide 100 MG/10 ML SDV IVPUSH ONE ×3 (08:58→14:30)
[2021-12-23] MEDS: Vitamin E (dl-alpha-tocopherol acetate) 400 Unit Cap PO SCH (10:13)
[2021-12-23] MEDS: Iron Polysaccharides Complex 150 MG Cap PO SCH (11:42)
[2021-12-23] MEDS ORDERED: Warfarin 2 MG, Warfarin 1 MG PO SCH ×2 (14:00)
[2021-12-23] MEDS: Warfarin Sliding Scale SCH (14:33)
[2021-12-24] MEDS: Levothyroxine 75 MCG Tab PO SCH (06:39)
[2021-12-24 07:02] LABS: CARBON DIOXIDE,CO2 29.8 mmol/L (21.0-32.0); POTASSIUM,K 3.3 mmol/L (3.5-5.1)
[2021-12-24] MEDS: Carvedilol 25 MG Tab PO SCH (08:48)
[2021-12-24] MEDS: Iron Polysaccharides Complex 150 MG Cap PO SCH (08:50)
[2021-12-24] MEDS: Lisinopril 5 MG Tab PO SCH (08:50)
[2021-12-24] MEDS: DULoxetine 60 MG Cap PO SCH (08:51)
[2021-12-24] MEDS: Omeprazole 20 MG Cap.CR PO SCH (08:52)
[2021-12-24] MEDS: Bumetanide 1 MG Tab PO SCH (08:53)
[2021-12-24] MEDS: Digoxin 125 MCG Tab PO SCH (08:54)
[2021-12-24] MEDS: Cholecalciferol (Vitamin D3) 25 MCG Tab PO SCH (08:55)
[2021-12-24] MEDS: Polyethylene Glycol 3350 Powder 17 GM Packet PO SCH (08:56)
[2021-12-24] MEDS: Nicotine 14 MG/24 Hr Patch TRDERM SCH (08:57)
[2021-12-24] MEDS: Vitamin E (dl-alpha-tocopherol acetate) 400 Unit Cap PO SCH (08:58)
[2021-12-24] MEDS: Methadone 10 MG Tab PO PRN (09:01)
[2021-12-24 12:11] VITALS: BP 116/69; PULSE 99
[2021-12-24] MEDS: Warfarin Sliding Scale SCH (13:14)
[2021-12-24] MEDS ORDERED: Warfarin 2 MG Tab PO ONE (14:00)
== END 2021-12-24 13:50 | disposition home or self-care (01) ==
LOC: MW.ED 08:57 → MW.MS 11:50
PROVIDERS: ADMIT Internal Medicine; ATTEND Internal Medicine
DX: R06.02 Shortness of breath (principal); D64.9 Anemia, unspecified; I48.19 Other persistent atrial fibrillation; J44.9 Chronic obstructive pulmonary disease, unspecified; E03.9 Hypothyroidism, unspecified; F32.A Depression, unspecified; K21.9 Gastro-esophageal reflux disease without esophagitis; K43.9 Ventral hernia without obstruction or gangrene; I42.9 Cardiomyopathy, unspecified; G89.4 Chronic pain syndrome; I50.22 Chronic systolic (congestive) heart failure; G47.33 Obstructive sleep apnea (adult) (pediatric); K59.00 Constipation, unspecified; Z79.899 Other long term (current) drug therapy; Z86.73 Personal history of transient ischemic attack (TIA), and cerebral infarction without residual deficits; Z98.890 Other specified postprocedural states; D72.829 Elevated white blood cell count, unspecified; Z79.01 Long term (current) use of anticoagulants; Z20.822 Contact with and (suspected) exposure to COVID-19
CPT/HCPCS: 36415; 36430; 71045; 80048; 80053; 80162; 82272; 82607; 82728; 82746; 83550; 83735; 83880; 84484; 85025; 85045; 85610; 86850; 86900; 86901; 86920; 93005; 96374; 96376; 99285; A9270; G0378; J1940; P9016; U0002; 93010; 99283

== ENCOUNTER 2022-01-07 00:08 | Inpatient (IN) | payer MEDICARE, OTHER ==
[2022-01-07] MEDS ORDERED: Albuterol/Ipratropium 3.0-0.5 MG/3 ML Neb Soln NEB ONE (00:36)
[2022-01-07 01:28] LABS: BLOOD UREA NITROGEN,BUN 25 mg/dL (7.0-18.0); CARBON DIOXIDE,CO2 31.9 mmol/L (21.0-32.0); CHLORIDE,CL 101 mmol/L (98-107); GLUCOSE RANDOM 84 mg/dL (74-106); POTASSIUM,K 4.1 mmol/L (3.5-5.1); SODIUM,NA 140 mmol/L (136-145)
[2022-01-07 02:15] LABS: CORONAVIRUS COVID-19 NAA NEGATIVE (NEGATIVE); INFLUENZA A NAA NEGATIVE (NEGATIVE); INFLUENZA B NAA NEGATIVE (NEGATIVE)
[2022-01-07] MEDS ORDERED: Furosemide 40 MG/4 ML VIAL IVPUSH ONE (02:31)
[2022-01-07] MEDS: Carvedilol 12.5 MG Tab PO SCH ×3 (08:09→18:45)
[2022-01-07] MEDS: Levothyroxine 75 MCG Tab PO SCH (08:15)
[2022-01-07] MEDS: Digoxin 125 MCG Tab PO SCH (08:16)
[2022-01-07] MEDS: Bumetanide 1 MG Tab PO SCH (08:16)
[2022-01-07] MEDS: DULoxetine 60 MG Cap PO SCH (09:59)
[2022-01-07] MEDS: Omeprazole 20 MG Cap.CR PO SCH (09:59)
[2022-01-07] MEDS: DULoxetine 30 MG Cap PO SCH (09:59)
[2022-01-07] MEDS: Methadone 10 MG Tab PO PRN ×2 (10:00→18:18)
[2022-01-07] MEDS ORDERED: Warfarin 2 MG Tab PO SCH (14:00)
[2022-01-07] MEDS ORDERED: Calcium Carbonate 500 MG Tab.Chew PO PRN (19:11)
[2022-01-07] MEDS: Polyethylene Glycol 3350 Powder 17 GM Packet PO SCH (19:33)
[2022-01-07] MEDS ORDERED: Carvedilol 12.5 MG Tab PO SCH (21:00)
[2022-01-07] MEDS ORDERED: Bumetanide 1 MG Tab PO ONE ×2 (21:00)
[2022-01-08] MEDS: Levothyroxine 75 MCG Tab PO SCH (06:45)
[2022-01-08 07:21] LABS: CARBON DIOXIDE,CO2 29.9 mmol/L (21.0-32.0); POTASSIUM,K 3.9 mmol/L (3.5-5.1)
[2022-01-08] MEDS ORDERED: Non-Formulary Medication 1 Each (Omeprazole Magnesium [Prilosec Otc] 20 MG Tablet.Dr) PO SCH (07:30)
[2022-01-08] MEDS: Polyethylene Glycol 3350 Powder 17 GM Packet PO SCH (08:05)
[2022-01-08] MEDS: DULoxetine 60 MG Cap PO SCH (08:05)
[2022-01-08] MEDS: DULoxetine 30 MG Cap PO SCH (08:05)
[2022-01-08] MEDS: Bumetanide 1 MG Tab PO SCH (08:06)
[2022-01-08] MEDS: Digoxin 125 MCG Tab PO SCH (08:07)
[2022-01-08] MEDS: Carvedilol 12.5 MG Tab PO SCH ×2 (08:07→17:10)
[2022-01-08] MEDS: Methadone 10 MG Tab PO PRN ×2 (08:17→17:12)
[2022-01-08] MEDS: Omeprazole 20 MG Cap.CR PO SCH (11:32)
[2022-01-08] MEDS ORDERED: Warfarin Sliding Scale SCH (14:00)
[2022-01-08] MEDS ORDERED: Warfarin 2 MG Tab PO SCH (14:00)
[2022-01-08] MEDS ORDERED: Bumetanide 1 MG Tab PO ONE (19:30)
[2022-01-08] MEDS ORDERED: Omeprazole 20 MG Cap.CR PO SCH (21:00)
[2022-01-09] MEDS: Methadone 10 MG Tab PO PRN ×2 (02:13→10:07)
[2022-01-09] MEDS: Levothyroxine 75 MCG Tab PO SCH (06:42)
[2022-01-09 08:19] LABS: POTASSIUM,K 3.4 mmol/L (3.5-5.1)
[2022-01-09] MEDS: Polyethylene Glycol 3350 Powder 17 GM Packet PO SCH (08:24)
[2022-01-09] MEDS: DULoxetine 60 MG Cap PO SCH (08:28)
[2022-01-09] MEDS: Bumetanide 1 MG Tab PO SCH (08:28)
[2022-01-09] MEDS: DULoxetine 30 MG Cap PO SCH (08:29)
[2022-01-09] MEDS: Carvedilol 12.5 MG Tab PO SCH (08:29)
[2022-01-09] MEDS: Digoxin 125 MCG Tab PO SCH (08:30)
[2022-01-09 12:23] VITALS: BP 128/75; PULSE 92
[2022-01-09] MEDS ORDERED: Warfarin 2 MG Tab PO SCH (14:00)
== END 2022-01-09 16:00 | disposition home or self-care (01) | DRG 293 ==
LOC: MW.ED 00:08 → MW.MS 02:29
PROVIDERS: ADMIT Internal Medicine; ATTEND Internal Medicine
DX: I50.9 Heart failure, unspecified (principal); J81.0 Acute pulmonary edema; Z95.2 Presence of prosthetic heart valve; Z79.01 Long term (current) use of anticoagulants; J44.9 Chronic obstructive pulmonary disease, unspecified; I34.0 Nonrheumatic mitral (valve) insufficiency; E03.9 Hypothyroidism, unspecified; Z79.890 Hormone replacement therapy; Z79.899 Other long term (current) drug therapy; H54.7 Unspecified visual loss; I48.91 Unspecified atrial fibrillation; M41.9 Scoliosis, unspecified; I42.9 Cardiomyopathy, unspecified; K21.9 Gastro-esophageal reflux disease without esophagitis; M19.90 Unspecified osteoarthritis, unspecified site; M54.9 Dorsalgia, unspecified; G89.29 Other chronic pain; G25.81 Restless legs syndrome; Z86.73 Personal history of transient ischemic attack (TIA), and cerebral infarction without residual deficits; F41.9 Anxiety disorder, unspecified; F32.A Depression, unspecified; E66.9 Obesity, unspecified; Z85.3 Personal history of malignant neoplasm of breast; Z86.16 Personal history of COVID-19; Z90.49 Acquired absence of other specified parts of digestive tract; Z98.51 Tubal ligation status; Z20.822 Contact with and (suspected) exposure to COVID-19; Z68.32 Body mass index [BMI] 32.0-32.9, adult
CPT/HCPCS: 0240U; 36415; 71045; 80048; 80053; 83735; 83880; 84439; 84443; 84484; 85025; 85610; 93005; 93307; 94640; 99221; 99232; 99239; 99285-25; A9270-GY; J1940; J7620-GY

== ENCOUNTER 2022-05-28 22:43 | Emergency (ER) | payer MEDICARE, OTHER ==
[2022-05-28] MEDS ORDERED: Diltiazem 25 MG/5 ML SDV IVPUSH ONE (22:56)
[2022-05-28 23:21] LABS: CARBON DIOXIDE,CO2 31.5 mmol/L (21.0-32.0); POTASSIUM,K 4.4 mmol/L (3.5-5.1)
[2022-05-28] MEDS ORDERED: Diltiazem IR 60 MG Tab PO ONE (23:28)
[2022-05-29 02:14] VITALS: BP 113/50; PULSE 81
== END 2022-05-29 02:09 | disposition home or self-care (01) ==
LOC: MW.ED 22:43
DX: I48.91 Unspecified atrial fibrillation (principal); I11.0 Hypertensive heart disease with heart failure; I50.9 Heart failure, unspecified; J44.9 Chronic obstructive pulmonary disease, unspecified; E66.9 Obesity, unspecified; Z68.31 Body mass index [BMI] 31.0-31.9, adult; Z79.899 Other long term (current) drug therapy; Z79.01 Long term (current) use of anticoagulants; Z86.16 Personal history of COVID-19; Z90.49 Acquired absence of other specified parts of digestive tract; Z20.822 Contact with and (suspected) exposure to COVID-19
CPT/HCPCS: 36415; 71045; 80053; 80162; 81001; 83735; 83880; 84484; 85025; 85610; 85730; 93005; 96374; 99285; A9270; J3490; U0002; 93010

== ENCOUNTER 2022-06-21 14:17 | Observation (INO) | payer MEDICARE, OTHER ==
[2022-06-21] MEDS ORDERED: Calcium Gluconate 3 GM in Sodium Chloride 0.9% 100 ML IV ONE (14:18)
[2022-06-21] MEDS ORDERED: Ondansetron 4 MG/2 ML SDV IVPUSH ONE (14:47)
[2022-06-21] MEDS ORDERED: Diltiazem 25 MG/5 ML SDV IVPUSH ONE (14:51)
[2022-06-21] MEDS: Sodium Chloride 0.9% 2.5 ML Syringe FLUSH PRN ×2 (15:08→21:14)
[2022-06-21] MEDS: Sodium Chloride 0.9% 10 ML Syringe FLUSH PRN ×2 (15:08→21:14)
[2022-06-21 15:16] LABS: BLOOD UREA NITROGEN,BUN 32 mg/dL (7.0-18.0); CARBON DIOXIDE,CO2 28.1 mmol/L (21.0-32.0); CHLORIDE,CL 98 mmol/L (98-107); GLUCOSE RANDOM 125 mg/dL (74-106); LIPASE 219 U/L (73-393); POTASSIUM,K 3.6 mmol/L (3.5-5.1); SODIUM,NA 138 mmol/L (136-145)
[2022-06-21 15:37] LABS: ESTIMATED GFR 32 mL/min (>60)
[2022-06-21] MEDS ORDERED: Sodium Chloride 0.9% 250 ML IV STA ×2 (16:38)
[2022-06-21] MEDS ORDERED: Calcium Gluconate 10% 1 GM/10 ML SDV IVPUSH ONE (16:39)
[2022-06-21] MEDS ORDERED: Digoxin 500 MCG/2 ML Amp IVPUSH ONE ×3 (17:15→17:49)
[2022-06-21] MEDS ORDERED: Sodium Chloride 0.9% 1,000 ML IV ONE (17:50)
[2022-06-22] MEDS ORDERED: Digoxin 500 MCG/2 ML Amp IVPUSH ONE (00:17)
[2022-06-22] MEDS ORDERED: Albuterol/Ipratropium 3.0-0.5 MG/3 ML Neb Soln NEB PRN (00:18)
[2022-06-22] MEDS ORDERED: Warfarin 5 MG Tab PO SCH (00:30)
[2022-06-22] MEDS: Methadone 10 MG Tab PO PRN ×3 (00:58→16:26)
[2022-06-22] MEDS: Carvedilol 12.5 MG Tab PO SCH ×3 (00:59→17:41)
[2022-06-22] MEDS ORDERED: Warfarin 2 MG Tab PO ONE (01:15)
[2022-06-22] MEDS: Lactated Ringers 1,000 ML IV SCH ×2 (02:31→18:22)
[2022-06-22] MEDS: Levothyroxine 75 MCG Tab PO SCH (06:46)
[2022-06-22] MEDS: Omeprazole 20 MG Cap.CR PO SCH (06:46)
[2022-06-22 07:29] LABS: CARBON DIOXIDE,CO2 28.8 mmol/L (21.0-32.0); POTASSIUM,K 3.6 mmol/L (3.5-5.1)
[2022-06-22] MEDS: DULoxetine 60 MG Cap PO SCH (08:53)
[2022-06-22] MEDS: Digoxin 125 MCG Tab PO SCH (08:54)
[2022-06-22] MEDS: Acetaminophen 325 MG Tab PO PRN (14:27)
[2022-06-22] MEDS: Polyethylene Glycol 3350 Powder 17 GM Packet PO SCH (18:19)
[2022-06-22] MEDS ORDERED: Warfarin 2 MG Tab PO SCH (21:00)
[2022-06-22] MEDS: Warfarin Sliding Scale PO SCH (21:26)
[2022-06-22] MEDS ORDERED: Magnesium Sulfate/Water 2 GM in Premix Bag 1 BAG IV ONE (22:00)
[2022-06-23] MEDS: Methadone 10 MG Tab PO PRN ×4 (00:26→23:16)
[2022-06-23 06:35] LABS: CARBON DIOXIDE,CO2 29.5 mmol/L (21.0-32.0); POTASSIUM,K 3.7 mmol/L (3.5-5.1)
[2022-06-23] MEDS: Omeprazole 20 MG Cap.CR PO SCH (07:31)
[2022-06-23] MEDS: Levothyroxine 75 MCG Tab PO SCH ×2 (07:31→07:42)
[2022-06-23] MEDS: DULoxetine 60 MG Cap PO SCH (08:49)
[2022-06-23] MEDS: Carvedilol 12.5 MG Tab PO SCH ×2 (08:50→16:38)
[2022-06-23] MEDS: Digoxin 125 MCG Tab PO SCH (08:51)
[2022-06-23] MEDS: Polyethylene Glycol 3350 Powder 17 GM Packet PO SCH (08:55)
[2022-06-23] MEDS ORDERED: Potassium Chloride 20 MEQ Tab.ER PO SCH (09:45)
[2022-06-23 09:55] LABS: BILIRUBIN INDIRECT 0.2
[2022-06-23] MEDS: Bumetanide 1 MG Tab PO SCH (10:41)
[2022-06-23] MEDS: Potassium Chloride 10 MEQ Tab.ER PO SCH ×2 (11:30→20:45)
[2022-06-23] MEDS ORDERED: Furosemide 20 MG/2 ML VIAL IVPUSH ONE (14:43)
[2022-06-23] MEDS ORDERED: Warfarin 2 MG Tab PO ONE (21:00)
[2022-06-23] MEDS: Acetaminophen 325 MG Tab PO PRN (22:35)
[2022-06-23] MEDS: Warfarin Sliding Scale PO SCH (23:20)
[2022-06-24] MEDS: Methadone 10 MG Tab PO PRN (05:27)
[2022-06-24] MEDS: Omeprazole 20 MG Cap.CR PO SCH (06:35)
[2022-06-24] MEDS: Levothyroxine 75 MCG Tab PO SCH (06:35)
[2022-06-24 07:40] LABS: CARBON DIOXIDE,CO2 29.4 mmol/L (21.0-32.0); POTASSIUM,K 4.1 mmol/L (3.5-5.1)
[2022-06-24] MEDS: Polyethylene Glycol 3350 Powder 17 GM Packet PO SCH (08:26)
[2022-06-24] MEDS: Bumetanide 1 MG Tab PO SCH (08:28)
[2022-06-24] MEDS: Potassium Chloride 10 MEQ Tab.ER PO SCH (08:29)
[2022-06-24] MEDS: Digoxin 125 MCG Tab PO SCH (08:31)
[2022-06-24] MEDS: DULoxetine 60 MG Cap PO SCH (08:32)
[2022-06-24] MEDS: Carvedilol 12.5 MG Tab PO SCH (08:33)
[2022-06-24 08:34] VITALS: PULSE 95
[2022-06-24 17:38] VITALS: BP 140/82
== END 2022-06-24 13:35 | disposition home or self-care (01) ==
LOC: MW.ED 14:17 → MW.MS 22:10
PROVIDERS: ADMIT Student in an Organized Health Care Education/Training Program; ATTEND Student in an Organized Health Care Education/Training Program
DX: I48.20 Chronic atrial fibrillation, unspecified (principal); J44.9 Chronic obstructive pulmonary disease, unspecified; E03.9 Hypothyroidism, unspecified; N17.9 Acute kidney failure, unspecified; R74.01 Elevation of levels of liver transaminase levels; D64.9 Anemia, unspecified; I42.9 Cardiomyopathy, unspecified; F41.9 Anxiety disorder, unspecified; K21.9 Gastro-esophageal reflux disease without esophagitis; E66.9 Obesity, unspecified; Z20.822 Contact with and (suspected) exposure to COVID-19; Z79.01 Long term (current) use of anticoagulants; Z79.899 Other long term (current) drug therapy; I11.0 Hypertensive heart disease with heart failure; Z99.81 Dependence on supplemental oxygen; Z86.16 Personal history of COVID-19; Z98.890 Other specified postprocedural states; Z79.890 Hormone replacement therapy; Z87.891 Personal history of nicotine dependence
CPT/HCPCS: 36415; 36430; 71045; 74176; 80048; 80053; 80076; 80162; 80305; 80307; 81001; 83605; 83690; 83735; 83880; 84100; 84484; 85025; 85610; 86850; 86900; 86901; 86920; 93005; 93306; 96361; 96365; 96366; 96375; 96376; 99285; A9270; G0378; J0610; J1160; J2405; J3475; J3490; J7030; J7050; J7120; P9016; U0002; 93010; 96374; 99291

== ENCOUNTER 2022-06-29 18:15 | Emergency (ER) | payer MEDICARE, OTHER ==
[2022-06-29] MEDS ORDERED: Sodium Chloride 0.9% 1,000 ML IV ONE (18:35)
[2022-06-29 19:32] LABS: POTASSIUM,K 4.4 mmol/L (3.5-5.1)
[2022-06-29] MEDS ORDERED: Furosemide 40 MG/4 ML VIAL IVPUSH ONE (20:44)
[2022-06-29] MEDS ORDERED: Morphine 4 MG/ML VIAL IVPUSH ONE (21:21)
[2022-06-29] MEDS ORDERED: Iopamidol 755 MG/ML 500 ML Multipack Bottle IVPUSH STA (22:17)
[2022-06-30 00:36] VITALS: BP 133/65; PULSE 54
== END 2022-06-30 | disposition home or self-care (01) ==
LOC: MW.ED 18:15
DX: K46.9 Unspecified abdominal hernia without obstruction or gangrene (principal); J44.9 Chronic obstructive pulmonary disease, unspecified; I50.9 Heart failure, unspecified; E66.9 Obesity, unspecified; Z68.32 Body mass index [BMI] 32.0-32.9, adult; Z79.899 Other long term (current) drug therapy; Z86.16 Personal history of COVID-19; Z90.49 Acquired absence of other specified parts of digestive tract; Z20.822 Contact with and (suspected) exposure to COVID-19
CPT/HCPCS: 36415; 71045; 74177; 80053; 81001; 83605; 83690; 83880; 84484; 85025; 87040; 87086; 93005; 96361; 96374; 96375; 99285; J1940; J2270; J7030; Q9967; U0002

== ENCOUNTER 2022-07-05 07:53 | Emergency (ER) | payer MEDICARE, OTHER ==
[2022-07-05] MEDS ORDERED: Amiodarone 150 MG in Dextrose 5% in Water 100 ML IV ONE ×2 (07:56)
[2022-07-05] MEDS ORDERED: propofoL 100 ML IV SCH (08:15)
[2022-07-05] MEDS: fentaNYL 100 MCG/2 ML SDV IVPUSH PRN ×3 (08:37→12:56)
[2022-07-05 08:56] LABS: BLOOD UREA NITROGEN,BUN 31 mg/dL (7.0-18.0); CARBON DIOXIDE,CO2 23.1 mmol/L (21.0-32.0); CHLORIDE,CL 103 mmol/L (98-107); GLUCOSE RANDOM 182 mg/dL (74-106); LIPASE 243 U/L (73-393); SODIUM,NA 140 mmol/L (136-145)
[2022-07-05 09:04] LABS: ESTIMATED GFR 37 mL/min (>60)
[2022-07-05] MEDS ORDERED: Sodium Chloride 0.9% 1,000 ML IV SCH (09:15)
[2022-07-05] MEDS ORDERED: Diltiazem 25 MG/5 ML SDV IVPUSH ONE (10:35)
[2022-07-05] MEDS ORDERED: Cefepime 2 GM in Premix Bag 1 BAG IV ONE (10:46)
[2022-07-05] MEDS ORDERED: fentaNYL 50 MCG/ML SDV IVPUSH ONE (11:06)
[2022-07-05] MEDS ORDERED: Sodium Chloride 0.9% 1,000 ML IV ONE (11:08)
[2022-07-05] MEDS ORDERED: Norepinephrine 4 MG in Dextrose 5% in Water 246 ML IV SCH ×2 (12:00)
[2022-07-05 12:23] VITALS: BP 97/46
[2022-07-05 12:40] VITALS: PULSE 69
== END 2022-07-05 14:06 ==
LOC: MW.ED 07:53
DX: I47.1 Supraventricular tachycardia (principal); I48.91 Unspecified atrial fibrillation; I11.0 Hypertensive heart disease with heart failure; I50.9 Heart failure, unspecified; J44.9 Chronic obstructive pulmonary disease, unspecified; E66.9 Obesity, unspecified; Z68.30 Body mass index [BMI] 30.0-30.9, adult; Z86.73 Personal history of transient ischemic attack (TIA), and cerebral infarction without residual deficits; Z20.822 Contact with and (suspected) exposure to COVID-19
CPT/HCPCS: 36415; 36556; 43752; 51702; 70450; 70450-26; 71045; 71045-26; 71250; 71250-26; 74176; 74176-26; 80053; 80162; 80305-QW; 80307; 81001; 83605; 83690; 83735; 83880; 84484; 85025; 85379; 85610; 85730; 87040; 87154; 93005; 93010; 96365; 96366; 96368; 96375; 96376; 99285; 99285-25; J0282; J0692; J2704; J3010; J3490; J7030; U0002